=== PATIENT | female | born 1980 | race Caucasian/White ===

== ENCOUNTER → 2017-09-02 12:03 | Outpatient (CLI) | payer OTHER, SELFPAY ==
[2017-09-02 12:09] LABS: Mucous, Urine 0 SEEN /hpf (<or=2+)
[2017-09-02 14:02] LABS: Color, Urine Yellow (Yellow); Glucose, Dipstick Normal (Normal); Ketone-Dipstick Negative (Negative); Leukocyte Esterase-Dipstick 500 /ul (Negative); Nitrite-Dipstick Negative (Negative); Occult Blood-Urine 250 /ul (Negative); Protein-Dipstick Negative (Negative); Specific Gravity, Urine 1.005 (1.002-1.030); Urine Bilirubin Dipstick Negative (Negative); Urine Clarity Sl. Cloudy (Clear); Urine Urobilinogen Normal (Normal)
[2017-09-02 14:11] LABS: Bacteria 1+ /hpf (None Seen); Red Blood Cells-Urine 25-50 SEEN /hpf (0-5); Squamous Epithelial Cells - UA 0-5 SEEN /hpf (5-10); White Blood Cells 25-50 SEEN /hpf (0-5)
== END ==
LOC: MFPLAB 12:05 → LABSPEC 12:09
PROVIDERS: Family Provider Family Medicine; PCP Family Medicine; Visit Provider Family Medicine
DX: R30.0 Dysuria (principal)
CPT/HCPCS: 81001; 87077; 87086; 87088; 87186

== ENCOUNTER → 2017-10-06 16:11 | Outpatient (CLI) | payer OTHER, SELFPAY ==
[2017-10-06 18:31] LABS: Anion Gap 7 (5-15); BUN 10 mg/dL (7-18); BUN/Creat Ratio 10.8 RATIO (10-20); Calcium,Total 8.9 mg/dL (8.5-10.1); Chloride 109 mmol/L (98-107); Creatinine, Serum 0.93 mg/dL (0.55-1.02); EST Glomerular Filtration Rate 73 mL/min (>60); Est Glom Filt Rate - Afr Amer 88 mL/min (>60); Glucose 83 mg/dL (74-106); Potassium 3.8 mmol/L (3.5-5.1); Sodium Level 140 mmol/L (136-145)
== END ==
PROVIDERS: Family Provider Family Medicine; PCP Family Medicine; Visit Provider Psychiatry & Neurology Psychiatry
DX: Z51.81 Encounter for therapeutic drug level monitoring (principal); F31.9 Bipolar disorder, unspecified; Z79.899 Other long term (current) drug therapy
CPT/HCPCS: 36415; 80048; 80178; 84443

== ENCOUNTER → 2017-10-14 11:23 | Outpatient (CLI) | payer OTHER, SELFPAY | PROVIDERS: Family Provider Family Medicine; PCP Family Medicine; Visit Provider Family Medicine | DX: N30.00 Acute cystitis without hematuria (principal) | CPT/HCPCS: 87077; 87086; 87088; 87186 ==

== ENCOUNTER → 2018-01-11 10:22 | Outpatient (CLI) | payer OTHER, SELFPAY ==
--- NOTE | 2018-01-11 10:25 | RAD_ITS ---
STUDY: X-RAY CHEST REASON FOR EXAM: Female, 37 years old. Cough. Bronchitis. TECHNIQUE: Frontal and lateral views of the chest. COMPARISON: 09/16/2015. FINDINGS: The lungs are clear and expanded. There is no demonstrated pleural abnormality. Normal size heart. Normal mediastinum and irma. Normal visualized pulmonary arteries. Normal visualized aortic arch and descending thoracic aorta. Normal visualized thoracic spine. Normal visualized ribs, clavicles, and shoulders. There is no demonstrated abnormality of the visualized soft tissue structures of the upper abdomen. RAD/Chest PA and Lateral IMPRESSION: Normal x-ray examination of the chest. Electronically Signed: Maruy De La Fuente MD at 16:48 EDT , Service support ,
== END ==
PROVIDERS: Family Provider Family Medicine; PCP Family Medicine; Visit Provider Family Medicine
DX: J20.9 Acute bronchitis, unspecified (principal)
CPT/HCPCS: 71046

== ENCOUNTER → 2018-03-28 09:44 | Outpatient (CLI) | payer OTHER, SELFPAY ==
[2018-03-28 13:15] LABS: Microalbumin,Random Urine 24.8 mg/L (NO RANGE EST.); Microalbumin:Creatinine Ratio 72.3 mg/g CRE (<30 mg/g CRE)
[2018-03-28 13:22] LABS: ALB/GLOB Ratio 1.1 RATIO (0.9-2.4); AST(SGOT) 14 U/L (15-37); Alanine Aminotransfer ALT/SGPT 25 U/L (13-56); Albumin, Serum 3.8 g/dL (3.2-5.0); Alkaline Phosphatase 60 U/L (45-117); Anion Gap 9 (5-15); BUN 10 mg/dL (7-18); BUN/Creat Ratio 12.9 RATIO (10-20); Chloride 108 mmol/L (98-107); Creatinine, Serum 0.78 mg/dL (0.55-1.02); EST Glomerular Filtration Rate 89 mL/min (>60); Est Glom Filt Rate - Afr Amer 107 mL/min (>60); Globulin 3.4 g/dL (2.2-4.2); Glucose 90 mg/dL (74-106); Potassium 4.1 mmol/L (3.5-5.1); Protein, Total 7.2 g/dL (6.4-8.2); Sodium Level 140 mmol/L (136-145); Thyroid Stim Hormone (TSH) 1.84 uIU/mL (0.358-3.74)
== END ==
PROVIDERS: Family Provider Family Medicine; PCP Family Medicine; Visit Provider Family Medicine
DX: Z51.81 Encounter for therapeutic drug level monitoring (principal); F31.81 Bipolar II disorder; R03.0 Elevated blood-pressure reading, without diagnosis of hypertension
CPT/HCPCS: 36415; 80053; 80178; 82043; 82570; 84146; 84443

== ENCOUNTER → 2018-08-08 10:00 | Outpatient (CLI) | payer OTHER, SELFPAY ==
[2018-08-08 12:52] LABS: ALB/GLOB Ratio 1.2 RATIO (0.9-2.4); AST(SGOT) 17 U/L (15-37); Alanine Aminotransfer ALT/SGPT 35 U/L (13-56); Albumin, Serum 3.8 g/dL (3.2-5.0); Alkaline Phosphatase 57 U/L (45-117); Anion Gap 9 (5-15); BUN 14 mg/dL (7-18); BUN/Creat Ratio 15.6 RATIO (10-20); Chloride 105 mmol/L (98-107); EST Glomerular Filtration Rate 75 mL/min (>60); Est Glom Filt Rate - Afr Amer 90 mL/min (>60); Globulin 3.3 g/dL (2.2-4.2); Glucose 155 mg/dL (74-106); Potassium 3.5 mmol/L (3.5-5.1); Protein, Total 7.1 g/dL (6.4-8.2); Sodium Level 137 mmol/L (136-145); Triglycerides 303 mg/dL
== END ==
PROVIDERS: Family Provider Family Medicine; PCP Family Medicine; Referring Provider Family Medicine; Visit Provider Family Medicine
DX: I10 Essential (primary) hypertension (principal); F31.81 Bipolar II disorder
CPT/HCPCS: 36415; 80053; 80178; 84478

== ENCOUNTER → 2019-02-01 15:35 | Outpatient (CLI) | payer BC, SELFPAY ==
[2019-02-01 17:47] LABS: Anion Gap 9 (5-15); BUN 11 mg/dL (7-18); BUN/Creat Ratio 12.3 RATIO (10-20); Calcium,Total 9.4 mg/dL (8.5-10.1); Chloride 105 mmol/L (98-107); EST Glomerular Filtration Rate 75 mL/min (>60); Est Glom Filt Rate - Afr Amer 90 mL/min (>60); Glucose 91 mg/dL (74-106); Sodium Level 141 mmol/L (136-145)
== END ==
PROVIDERS: Family Provider Family Medicine; PCP Family Medicine; Referring Provider Family Medicine; Visit Provider Family Medicine
DX: I10 Essential (primary) hypertension (principal)
CPT/HCPCS: 36415; 80048

== ENCOUNTER → 2019-03-16 15:16 | Outpatient (CLI) | payer BC, SELFPAY ==
[2019-02-05 15:04] VITALS: BMI 29.5
[2019-03-16 17:57] LABS: Hematocrit 37.1 % (37-47); Hemoglobin 12.7 g/dL (12.0-15.0); Mean Corp Hgb Conc 34.2 g/dL (32-36); Mean Corpuscular Hgb 29.3 pg (27.0-32.0); Mean Corpuscular Volume 85.5 fL (81-99); Mean Platelet Vol. 9.2 fl (6.2-12.0); Platelet Count 285 K/mm3 (150-450); RBC Distribution Width CV 13.2 % (11.6-14.6); RBC Distribution Width SD 40.4 fl (35.1-43.9); Red Blood Count 4.34 M/mm3 (4.2-5.4); White Blood Count 8.7 K/mm3 (4.4-11.0)
[2019-03-16 18:04] LABS: AST(SGOT) 128 U/L (15-37); Alanine Aminotransfer ALT/SGPT 55 U/L (13-56); Albumin, Serum 3.9 g/dL (3.2-5.0); Alkaline Phosphatase 45 U/L (45-117); Anion Gap 7 (5-15); BUN 14 mg/dL (7-18); BUN/Creat Ratio 12.4 RATIO (10-20); Calcium,Total 9.7 mg/dL (8.5-10.1); Chloride 103 mmol/L (98-107); Creatinine, Serum 1.13 mg/dL (0.55-1.02); EST Glomerular Filtration Rate 57 mL/min (>60); Est Glom Filt Rate - Afr Amer 69 mL/min (>60); Globulin 3.8 g/dL (2.2-4.2); Glucose 118 mg/dL (74-106); Potassium 2.9 mmol/L (3.5-5.1); Protein, Total 7.7 g/dL (6.4-8.2); Sodium Level 135 mmol/L (136-145); Thyroid Stim Hormone (TSH) 2.37 uIU/mL (0.358-3.74)
== END ==
PROVIDERS: Family Provider Family Medicine; PCP Family Medicine; Referring Provider Psychiatry & Neurology Psychiatry; Visit Provider Psychiatry & Neurology Psychiatry
DX: Z79.899 Other long term (current) drug therapy (principal)
CPT/HCPCS: 36415; 80053; 80178; 84443; 85027

== ENCOUNTER → 2019-03-30 14:04 | Outpatient (CLI) | payer BC, SELFPAY ==
[2019-02-05 15:04] VITALS: BMI 29.5
[2019-03-30 16:35] LABS: ALB/GLOB Ratio 1.1 RATIO (0.9-2.4); AST(SGOT) 24 U/L (15-37); Alanine Aminotransfer ALT/SGPT 40 U/L (13-56); Albumin, Serum 3.8 g/dL (3.2-5.0); Alkaline Phosphatase 54 U/L (45-117); Anion Gap 10 (5-15); BUN 6 mg/dL (7-18); BUN/Creat Ratio 5.9 RATIO (10-20); Chloride 107 mmol/L (98-107); Creatinine, Serum 1.01 mg/dL (0.55-1.02); EST Glomerular Filtration Rate 65 mL/min (>60); Est Glom Filt Rate - Afr Amer 79 mL/min (>60); Globulin 3.5 g/dL (2.2-4.2); Glucose 102 mg/dL (74-106); Potassium 3.4 mmol/L (3.5-5.1); Protein, Total 7.3 g/dL (6.4-8.2); Sodium Level 140 mmol/L (136-145)
== END ==
PROVIDERS: Family Provider Family Medicine; PCP Family Medicine; Referring Provider Psychiatry & Neurology Psychiatry; Visit Provider Psychiatry & Neurology Psychiatry
DX: E87.6 Hypokalemia (principal); F31.81 Bipolar II disorder
CPT/HCPCS: 36415; 80053; 80178; 83735

== ENCOUNTER → 2019-08-21 10:31 | Outpatient (CLI) | payer BC, SELFPAY ==
[2019-02-05 15:04] VITALS: BMI 29.5
[2019-08-21 12:27] LABS: Hemoglobin 13.5 g/dL (12.0-15.0); Mean Corp Hgb Conc 33.8 g/dL (32-36); Mean Corpuscular Hgb 30.8 pg (27.0-32.0); Mean Corpuscular Volume 91.1 fL (81-99); Platelet Count 263 K/mm3 (150-450); RBC Distribution Width CV 12.3 % (11.6-14.6); RBC Distribution Width SD 40.8 fl (35.1-43.9); Red Blood Count 4.39 M/mm3 (4.2-5.4)
[2019-08-21 12:50] LABS: AST(SGOT) 28 U/L (15-37); Alanine Aminotransfer ALT/SGPT 69 U/L (13-56); Albumin, Serum 3.9 g/dL (3.2-5.0); Alkaline Phosphatase 64 U/L (45-117); Anion Gap 5 (5-15); BUN 15 mg/dL (7-18); BUN/Creat Ratio 17.4 RATIO (10-20); Calcium,Total 9.9 mg/dL (8.5-10.1); Chloride 109 mmol/L (98-107); Creatinine, Serum 0.86 mg/dL (0.55-1.02); EST Glomerular Filtration Rate 78 mL/min (>60); Est Glom Filt Rate - Afr Amer 95 mL/min (>60); Globulin 4.1 g/dL (2.2-4.2); Glucose 92 mg/dL (74-106); Potassium 4.2 mmol/L (3.5-5.1); Sodium Level 138 mmol/L (136-145)
== END ==
PROVIDERS: PCP Family Medicine; Referring Provider Psychiatry & Neurology Psychiatry; Visit Provider Psychiatry & Neurology Psychiatry
DX: F31.81 Bipolar II disorder (principal); F10.10 Alcohol abuse, uncomplicated
CPT/HCPCS: 36415; 80053; 80178; 84443; 85027

== ENCOUNTER → 2019-10-04 13:40 | Outpatient (CLI) | payer BC, SELFPAY ==
[2019-02-05 15:04] VITALS: BMI 29.5
[2019-10-04 15:55] LABS: AST(SGOT) 50 U/L (15-37); Alanine Aminotransfer ALT/SGPT 102 U/L (13-56); Alkaline Phosphatase 59 U/L (45-117); Anion Gap 11 (5-15); BUN 14 mg/dL (7-18); BUN/Creat Ratio 16.6 RATIO (10-20); Bilirubin, Direct 0.13 mg/dL (0.00-0.30); Calcium,Total 9.7 mg/dL (8.5-10.1); Chloride 103 mmol/L (98-107); Creatinine, Serum 0.84 mg/dL (0.55-1.02); EST Glomerular Filtration Rate 80 mL/min (>60); Est Glom Filt Rate - Afr Amer 97 mL/min (>60); GGTP 127 U/L (5-55); Globulin 3.6 g/dL (2.2-4.2); Glucose 150 mg/dL (74-106); Potassium 3.8 mmol/L (3.5-5.1); Protein, Total 7.6 g/dL (6.4-8.2); Sodium Level 136 mmol/L (136-145)
== END ==
PROVIDERS: PCP Family Medicine; Referring Provider Psychiatry & Neurology Psychiatry; Visit Provider Psychiatry & Neurology Psychiatry
DX: F31.81 Bipolar II disorder (principal)
CPT/HCPCS: 36415; 80048; 80076; 80178; 82977

== ENCOUNTER → 2019-10-26 12:16 | Outpatient (CLI) | payer BC, SELFPAY ==
[2019-02-05 15:04] VITALS: BMI 29.5
[2019-10-26 16:49] LABS: AST(SGOT) 51 U/L (15-37); Alanine Aminotransfer ALT/SGPT 129 U/L (13-56); Albumin, Serum 4.2 g/dL (3.2-5.0); Alkaline Phosphatase 65 U/L (45-117); Bilirubin, Direct 0.14 mg/dL (0.00-0.30); GGTP 116 U/L (5-55); Globulin 3.9 g/dL (2.2-4.2); Protein, Total 8.1 g/dL (6.4-8.2)
== END ==
PROVIDERS: PCP Family Medicine; Referring Provider Psychiatry & Neurology Psychiatry; Visit Provider Psychiatry & Neurology Psychiatry
DX: K72.90 Hepatic failure, unspecified without coma (principal)
CPT/HCPCS: 36415; 80076; 82977

== ENCOUNTER → 2020-02-26 12:17 | Outpatient (CLI) | payer BC, SELFPAY ==
[2019-02-05 15:04] VITALS: BMI 29.5
[2020-02-26 16:09] LABS: ALB/GLOB Ratio 1.1 RATIO (0.9-2.4); AST(SGOT) 57 U/L (15-37); Alanine Aminotransfer ALT/SGPT 102 U/L (13-56); Alkaline Phosphatase 63 U/L (45-117); Anion Gap 9 (5-15); BUN 15 mg/dL (7-18); Calcium,Total 9.7 mg/dL (8.5-10.1); Chloride 103 mmol/L (98-107); Creatinine, Serum 0.94 mg/dL (0.55-1.02); EST Glomerular Filtration Rate 71 mL/min (>60); Est Glom Filt Rate - Afr Amer 85 mL/min (>60); Globulin 3.7 g/dL (2.2-4.2); Glucose 109 mg/dL (74-106); Potassium 3.8 mmol/L (3.5-5.1); Protein, Total 7.7 g/dL (6.4-8.2); Sodium Level 137 mmol/L (136-145)
== END ==
LOC: LAB.FUTURE 12:20 → MTLAB 08-25 12:46
PROVIDERS: PCP Family Medicine; Referring Provider Psychiatry & Neurology Psychiatry; Visit Provider Psychiatry & Neurology Psychiatry
DX: K76.0 Fatty (change of) liver, not elsewhere classified (principal); Z79.899 Other long term (current) drug therapy
CPT/HCPCS: 36415; 80053; 80178; 84443

== ENCOUNTER → 2020-08-26 10:37 | Outpatient (CLI) | payer BC, SELFPAY ==
[2019-02-05 15:04] VITALS: BMI 29.5
--- NOTE | 2020-08-26 10:42 | RAD_ITS ---
STUDY: X-RAY CHEST REASON FOR EXAM: Female, 39 years old. CHEST PAIN TECHNIQUE: PA and lateral views of the chest. COMPARISON: 2017 FINDINGS: The lungs are clear and expanded. There is no demonstrated pleural abnormality. Normal size heart. Normal mediastinum and irma. Normal visualized pulmonary arteries. Normal visualized aortic arch and descending thoracic aorta. Normal visualized thoracic spine. Normal visualized ribs, clavicles, and shoulders. There is no demonstrated abnormality of the visualized soft tissue structures of the upper abdomen. RAD/Chest PA and Lateral IMPRESSION: Normal x-ray examination of the chest. Electronically Signed: Rashid Wheeler MD at 11:56 EDT , Service support ,
[2020-08-26 12:40] LABS: D-Dimer Quantitative (DVT/PE) 0.29 FEU/ug/m (0.27-0.49)
[2020-08-26 12:41] LABS: Absolute Lymphocyte Count 1.83 X10^3/uL (0.83-4.51); Absolute Neutrophil Count 3.8 X10^3/uL (2.0-7.7); Basophil# 0.04 X10^3/uL; Basophil% 0.6 % (0-1); Eosinophil# 0.28 X10^3/uL; Eosinophils% 4.2 % (0-5); Hematocrit 38.5 % (37-47); Hemoglobin 13.2 g/dL (12.0-15.0); Lymphocyte # 1.83 X10^3/ul (4.0); Lymphocyte % 27.7 % (19-41); Mean Corp Hgb Conc 34.3 g/dL (32-36); Mean Corpuscular Volume 96.3 fL (81-99); Mean Platelet Vol. 8.8 fl (6.2-12.0); Monocyte# 0.58 X10^3/uL; Monocyte% 8.8 % (0-10); NRBC Flagged by Analyzer 0 % (0-5); Neutrophil # 3.84 X10^3/uL (2.7-7.7); Neutrophil % 58.1 % (47-70); Platelet Count 187 K/mm3 (150-450); RBC Distribution Width CV 12.5 % (11.6-14.6); RBC Distribution Width SD 43.5 fl (35.1-43.9); White Blood Count 6.6 K/mm3 (4.4-11.0)
[2020-08-26 13:19] LABS: Hemoglobin A1c 5.9 % (3.8-5.6)
[2020-08-26 14:46] LABS: ALB/GLOB Ratio 1.1 RATIO (0.9-2.4); AST(SGOT) 70 U/L (15-37); Alanine Aminotransfer ALT/SGPT 126 U/L (13-56); Albumin, Serum 4.1 g/dL (3.2-5.0); Alkaline Phosphatase 63 U/L (45-117); Anion Gap 9 (5-15); BUN 9 mg/dL (7-18); BUN/Creat Ratio 9.8 RATIO (10-20); Calcium,Total 9.6 mg/dL (8.5-10.1); Chloride 102 mmol/L (98-107); Creatinine, Serum 0.91 mg/dL (0.55-1.02); EST Glomerular Filtration Rate 73 mL/min (>60); Est Glom Filt Rate - Afr Amer 88 mL/min (>60); GGTP 295 U/L (5-55); Globulin 3.7 g/dL (2.2-4.2); Glucose 147 mg/dL (74-106); Lipase 156 U/L (73-393); Potassium 3.5 mmol/L (3.5-5.1); Prolactin 31.9 ng/mL; Protein, Total 7.8 g/dL (6.4-8.2); Sodium Level 134 mmol/L (136-145); Thyroid Stim Hormone (TSH) 3.56 uIU/mL (0.358-3.74)
[2020-08-27 08:56] LABS: HCG BETA-SUBUNIT QUANT. < 1 mIU/mL (.)
== END ==
PROVIDERS: PCP Family Medicine; Referring Provider Psychiatry & Neurology Psychiatry; Visit Provider Psychiatry & Neurology Psychiatry
DX: R07.89 Other chest pain (principal); F31.81 Bipolar II disorder; E66.01 Morbid (severe) obesity due to excess calories; F10.10 Alcohol abuse, uncomplicated; Z68.41 Body mass index [BMI] 40.0-44.9, adult; N91.1 Secondary amenorrhea; Y90.9 Presence of alcohol in blood, level not specified
CPT/HCPCS: 36415; 71046; 80053; 80178; 82977; 83036; 83690; 84146; 84443; 84702; 85025; 85379

== ENCOUNTER 2020-09-08 01:29 | Observation (INO) | payer BC, SELFPAY ==
[2019-02-05 15:04] VITALS: BMI 29.5
[2020-09-08] VITALS (12 sets, daily range): BP systolic 115–148; BP diastolic 54–73; PULSE 69–85; RESP 16–22; TEMP 37.1–38.4; O2SAT 96–99; BMI 40.8; BMI 40.4
--- NOTE | 2020-09-08 | SPU_PTH ---
PATIENT: MARIIA DAVIDSON LOC: [facility] U#:[id number] AGE/SX: 39/F ROOM: [facility] RE09/08/[address]: Dr. Nedra Obrien MD : 1980 BED: 1 DIS: 09/09/2020 SPEC #: [id number] RECD: 09/09/20 10:00 STATUS: CASH REKia #: [id number] VICTORINA: 09/08/20 00:[address]: Nedra Obrien DEPT: CYTOLOGY RECD BY: Jet Navarro ENTERED: 09/09/20 10:39 SP TYPE: Sputum Cy OTHR DR: MD Dr. Hieu Arriola MD Tissues: Sputum Procedures: Pap Stain (control) Special Stain Group II Special Stain Group I AFB Stain (control) Cytospin Fluid HEADER OPERATION: Not noted PRE-OP DIAGNOSIS: N/V/D, dyspnea, cough TISSUE SUBMITTED: Sputum for cytology DIAGNOSIS CYTOLOGY Sputum for cytology (smears): Negative for malignant cells. Negative for fungal organisms. See comment. AM:key 09/09/2020 COMMENT GMS stain with matched control is negative for fungal organisms. CYTOLOGY STUDY Slides are reviewed. CYTOLOGY GROSS Received is 0.5 ml of light rolon mucoidy fluid labeled with the patient's name and and designated per the requisition as sputum. Submitted for cytology preparation. / key 09/09/2020 TC:5 CPT: 81164, 65668
--- NOTE | 2020-09-08 01:57 | ED.VIS.GEN ---
History of Present Illness Chief Complaint: Fever Onset: Days - 3 Context: Gradual Onset Timing: Intermittent Quality: 104 Current Severity: Mild Maximum Severity: Moderate Worsened by: unk Relieved by: tylenol Associated Symptoms: diarrhea, n/v Narrative: Patient presents to the ER because she felt a little short of breath while she was lying in bed tonight just prior to arrival. Her breathing is fine now. She has had no cough, congestion, sore throat, or other symptoms in the head or neck or chest. Fevers for 3 days, maximum 104, transiently responds to Tylenol. Diarrhea 10 times per day or more, loose watery, no blood or melena, occasional nausea and vomiting no abdominal pain. No trouble urinating. Denies having had Covid that she knows of, has not been vaccinated yet. No contact with anyone else with Covid that she knows of, nor with any other illness. - Past Medical History (1) Bipolar disorder Status: Chronic Past Medical History - Allergies and Home Meds Allergies/Adverse Reactions: Allergies No Known Allergies Allergy (Verified 09/08/20 01:32) Smoking Status: Never smoker - Family History Maternal Family History: Family History (Last Updated 02/05/19 @ 14:44 by Jaye Gaviria) Father Heart disease Mother Cancer Family History: Reports: Cancer Paternal Family History: Family History (Last Updated 02/05/19 @ 14:44 by Jaye Gaviria) Father Heart disease Mother Cancer Family History: Reports: High Cholesterol, Heart Disease, Hypertension Review of Systems General: Reports: Chills, Fever, Malaise. Denies: Sweats Eyes: Denies: Visual changes - bilaterally, Diplopia ENT: Denies: Rhinorrhea, Sore throat Cardiovascular: Denies: Chest pain, Palpitations Respiratory: Reports: Dyspnea - See HPI. Denies: Cough, Dyspnea on exertion Gastrointestinal: Reports: Nausea, Vomiting, Diarrhea. Denies: Abdominal pain, Melena, Hematochezia Genitourinary: Denies: Dysuria, Hematuria, Frequency Musculoskeletal: Denies: Back pain, Swelling, Extremity Pain Skin: Denies: Rash, Wounds Neurological: Denies: Headache, Weakness, Numbness Physical Exam Vital Signs/Narrative: Vital Signs Temp Pulse Resp BP Pulse Ox 09/08/20 01:33 120/55 L 09/08/20 01:30 99.4 F H 85 18 99 Inital Vital Signs reviewed: Yes General: Well nourished, Well developed, Obese, No Acute Distress Head: Normocephalic, Atraumatic Eyes: Perrl, EOMI ENT: Moist mucous membranes, No rhinorrhea, - - Posterior oropharynx clear. Negative for: Sinus tenderness Neck: Supple, Nontender, No lymphadenopathy Cardiovascular: Regular rate, Regular rhythm, No murmurs. Negative for: Tachycardia Respiratory: No distress, CTA bilaterally, Chest nontender Abdomen: Soft, Nontender, Nondistended, Normal bowel sounds Back: Nontender, Normal Inspection. Negative for: CVA tenderness Extremities: Nontender, No edema. Negative for: Calf Tenderness Skin: Normal color, No rash, No Trauma Neurological: Alert, Oriented x3, Cranial nerves II-XII grossly intact, Normal Strength, Normal Sensation, Normal Gait Psychological: Normal affect - Flat affect, Normal Mood Diagnostic/Tx/Re-eval Impressions Chest X-Ray 09/08/20 02:38 IMPRESSION: Normal x-ray examination of the chest. Electronically Signed: Rip Jackson MD at 4:25 EDT Tel , Service support , 09/08/20 02:38 Chest 1 View (Portable) [RAD] Stat 09/08/20 02:02 Mucosa - Nose SARS-CoV-2 Antigen (Rapid) - Final 09/08/20 02:02 Mucosa - Nasopharyngeal Influenza Types A,B Direct FA (RADHA) - Final Laboratory Results 09/08/20 03:23 Urine Color Yellow Urine Clarity Cloudy Urine pH 8.0 Ur Specific [place] 1.010 Urine Protein 30 H Urine Glucose (UA) Normal Urine Ketones Negative Urine Occult Blood 150 H Urine Nitrite Negative Urine Bilirubin Negative Urine Urobilinogen Normal Ur Leukocyte Esterase 500 H Urine RBC 10-25 SEEN Urine WBC 25-50 SEEN Ur Squamous Epith Cells 0-5 SEEN Urine Bacteria 0 SEEN Urine Mucus 0 SEEN - Medical Decision Making Clinically patient is well. Her potassium at 2.7 is concerning enough to admit her, since it will take repeated IV boluses in order to get her levels up especially if she continues to lose it through her GI tract, which is how I suspect her potassium is so low. Covid test rapid return negative, so I did send a PCR to confirm this given her fever of unknown etiology. Chest x-ray is normal 1 view on my interpretation. No sign of any infiltrates or pneumonia. She has no hypoxia, she is not currently dyspneic, her lungs are clear, and x-ray is normal. I do not think she needs to be tested for a PE at this time as that would be unlikely the reason for all of this including the fever, she is not an IV drug user. Influenza was obtained and is negative, urinalysis shows no sign of infection. Her bilirubin is abnormally elevated for her at 1.8 of undetermined significance. Her abdomen is very benign, she does not clinically appear to have cholangitis or cholecystitis. Plan is for admission for potassium replacement and further evaluation. Her urine shows pyuria and leukocyte esterase. She was given Rocephin and this was sent for a culture in addition to the blood cultures of her already sent. Unknown if this is the cause of all of this, as this should not necessarily be causing the vomiting and diarrhea, and she is not septic. ED Disposition - Plan for ED Patient: Disposition: Acute Care [facility] Diagnosis: Hypokalemia due to excessive gastrointestinal loss of potassium, Gastroenteritis, Intermittent fever, Urinary tract infection
[2020-09-08] MEDS: Ondansetron 4 MG/2 ML Vial IV (02:09)
[2020-09-08 02:32] LABS: Absolute Lymphocyte Count 0.67 X10^3/uL (0.83-4.51); Absolute Neutrophil Count 6.7 X10^3/uL (2.0-7.7); Basophil# 0.08 X10^3/uL; Basophil% 0.9 % (0-1); Eosinophil# 0.14 X10^3/uL; Eosinophils% 1.7 % (0-5); Hematocrit 36.1 % (37-47); Hemoglobin 12.7 g/dL (12.0-15.0); Lymphocyte # 0.67 X10^3/ul (4.0); Lymphocyte % 7.9 % (19-41); Mean Corp Hgb Conc 35.2 g/dL (32-36); Mean Corpuscular Hgb 33.1 pg (27.0-32.0); Monocyte# 0.79 X10^3/uL; Monocyte% 9.3 % (0-10); NRBC Flagged by Analyzer 0 % (0-5); Neutrophil # 6.72 X10^3/uL (2.7-7.7); Neutrophil % 79.5 % (47-70); Platelet Count 150 K/mm3 (150-450); RBC Distribution Width CV 12.4 % (11.6-14.6); RBC Distribution Width SD 42.7 fl (35.1-43.9); Red Blood Count 3.84 M/mm3 (4.2-5.4); White Blood Count 8.5 K/mm3 (4.4-11.0)
--- NOTE | 2020-09-08 02:38 | RAD_ITS ---
STUDY: X-RAY CHEST REASON FOR EXAM: Female, 39 years old. fever, sob TECHNIQUE: Single AP portable view of the chest. COMPARISON: None. FINDINGS: The lungs are clear and expanded. There is no demonstrated pleural abnormality. Normal size heart. Normal mediastinum and irma. Normal visualized pulmonary arteries. Normal visualized aortic arch and descending thoracic aorta. Normal visualized thoracic spine. Normal visualized ribs, clavicles, and shoulders. There is no demonstrated abnormality of the visualized soft tissue structures of the upper abdomen. RAD/Chest 1 View (Portable) IMPRESSION: Normal x-ray examination of the chest. Electronically Signed: Rip Jackson MD at 4:25 EDT Tel , Service support ,
[2020-09-08 02:58] LABS: ALB/GLOB Ratio 0.9 RATIO (0.9-2.4); AST(SGOT) 52 U/L (15-37); Alanine Aminotransfer ALT/SGPT 101 U/L (13-56); Albumin, Serum 3.7 g/dL (3.2-5.0); Alkaline Phosphatase 107 U/L (45-117); Anion Gap 7 (5-15); BUN 12 mg/dL (7-18); BUN/Creat Ratio 10.9 RATIO (10-20); Calcium,Total 9.7 mg/dL (8.5-10.1); Chloride 98 mmol/L (98-107); EST Glomerular Filtration Rate 59 mL/min (>60); Est Glom Filt Rate - Afr Amer 71 mL/min (>60); Estimated Creatinine Clearance 71.76 ml/min; Globulin 4.3 g/dL (2.2-4.2); Glucose 177 mg/dL (74-106); Potassium 2.7 mmol/L (3.5-5.1); Sodium Level 131 mmol/L (136-145)
--- NOTE | 2020-09-08 03:16 | HP.PCM_ITS ---
Problem List (1) COVID-19 Status: Suspected (2) Hypokalemia due to excessive gastrointestinal loss of potassium Status: Acute (3) Prediabetes Status: Chronic (4) Morbid obesity Status: Chronic (5) Elevated LFTs Status: Chronic (6) Bipolar disorder Status: Chronic Qualifiers: Active/Remission status: remission status unspecified Qualified Code(s): F31.9 - Bipolar disorder, unspecified (7) Hypertension Status: Chronic Qualifiers: Hypertension type: essential hypertension Qualified Code(s): I10 - Essential (primary) hypertension History of Present Illness Date of Admission: 09/08/20 Chief Complaint: Fever, Dyspnea, Nausea, Emesis, Diarrhea. The patient is a 39 y/o F w/ PMHx: HTN, Chronic LFT elevations, Bipolar disorder, Morbid obesity, Prediabetes mellitus type II who presents to the [facility] ED on 09/08/20 with history of 4 days of intermittent diarrhea noted to be loose and watery with occasional nausea and emesis with no associated abdominal pain, frontal throbbing headache, body aches as well as significant fevers with T-max up to 104 with some improvement with Tylenol and onset while in bed the evening prior to ED presentation specifically dyspnea prompting ED evaluation. Patient denies having had previous Covid and has not yet been vaccinated. She denies anyone else with symptoms. Work-up in the ED included T 99.4, heart rate 85, BP 120/55, respiratory rate 18, 99% on room air, CBC with WC 8.5, hemoglobin 12.7, platelet 150 with lymphopenia, CMP with sodium 131, potassium 2.7, BUN/creatinine 12/1.10, glucose 177, total bilirubin 1.80, AST/ALT 52/101, troponin less than 0.015, blood culture x2 pending per ED, rapid influenza and rapid Covid antigen negative, chest x-ray with no acute cardiopulmonary findings, Covid PCR pending upon evaluation, urinalysis pending upon evaluation. In the ED patient ministered normal saline, potassium supplementation oral and IV as well as Zofran 4 mg IV x1. She notes that her and three children have all been well. Past Medical History Past Medical History (Chronic Problems): Chronic Problems (Last Updated 02/05/19 @ 14:43 by Jaye Gaviria) Bipolar disorder (Chronic) Hypertension (Chronic) Prediabetes (Chronic) Morbid obesity (Chronic) Elevated LFTs (Chronic) Medical History: Medical History (Last Updated 02/05/19 @ 14:43 by Jaye Gaviria) Bipolar disorder F31.9 Hypertension I10 Allergies No Known Allergies Allergy (Verified 09/08/20 01:32) Home Medications: Ambulatory Orders Medication Instructions Recorded bisoprolol fumarate 10 mg tablet 10 mg PO DAILY 02/05/19 clonazepam 2 mg tablet 2 mg PO BID 02/05/19 lithium carbonate 600 mg capsule 900 mg PO DAILY 02/05/19 [place] Carbonate 1,500 mg PO QHS 09/08/20 Lurasidone HCl [Latuda] 120 mg PO DAILY 09/08/20 Sertraline HCl [Zoloft] 100 mg PO DAILY 09/08/20 Spironolactone 100 mg PO DAILY 09/08/20 Surgical History: Surgical History (Last Updated 02/05/19 @ 14:43 by Jaye Gaviria) delivery delivered O82 x3 Surgical History: - - x 3. 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 Smoking Status: Never smoker Tobacco Use: Non-smoker Alcohol: None Drugs: None - *Family History Maternal Family History: Family History (Last Updated 02/05/19 @ 14:44 by Jaye Gaviria) Father Heart disease Mother Cancer History Items: Cancer Paternal Family History: Family History (Last Updated 02/05/19 @ 14:44 by Jaye Gaviria) Father Heart disease Mother Cancer History Items: High Cholesterol, Heart Disease, Hypertension Review of Systems Constitutional: Reports: Chills, Fever, Malaise, Weakness, Fatigue. Denies: Anorexia, Weight Change HEENT: Reports: Head Aches. Denies: Sinus Congestion, Sinus Drainage Cardiovascular: Denies: Chest Pain, Chest Pressure, Chest Tightness, Light Headedness, Orthopnea, Palpitations, Syncope Respiratory: Reports: Cough, Shortness of Breath. Denies: Shortness of breath at rest, Shortness of breath upon exertion, Sputum production Gastrointestinal: Reports: Diarrhea, Nausea, Vomiting. Denies: Abdominal Pain Genitourinary: Denies: Dysuria Musculoskeletal: Reports: Joint Pain, Muscle pain. Denies: Joint Tenderness Skin: Denies: Rash, Wounds Neurological: Denies: Numbness, Tingling, Focal weakness Psychiatric: Reports: Anxiety, Depression. Denies: Homicidal Ideations, Suicidal Ideations Hematologic/ Lymphatic: Denies: Easy Bruising, Easy Bleeding VTE Information - Inpt Only VTE Present on Admission: No VTE Mechan Device Prophylaxis: SCD's VTE Pharm Prophylaxis ordered?: Yes Patient Problems: Active and Suspected Problems (Last Updated 02/05/19 @ 14:43 by Jaye Gaviria) Hypokalemia due to excessive gastrointestinal loss of potassium (Acute) Gastroenteritis (Acute) Intermittent fever (Acute) COVID-19 (Suspected) Subjective: Patient seated upright in the ED bed, fatigued, ill-appearing. Objective: Physical Examination: General: awake, alert, oriented x 3 and cooperative, seated upright in the ED bed, fatigued appearing, mildly unkempt. Skin: normal color, turgor, no icterus, cyanosis. HEENT: AT/NC, EOMI, PERRLA, dry MM, no carotid bruits or JVD noted; however, thickened neck makes examination difficult. Lungs: Diminished breath sounds, greater bases, moderate effort, no rales, ronchi or wheezing. Heart: Regular rate and rhythm; no gallop, rub audible. Abdomen: soft, morbidly obese, NTTP, ND, distant mildly hyperactive BS, no obvious HSM; however, habitus makes examination difficult. Extremities: no cyanosis, clubbing, or edema. Neurological: patient awake, alert, oriented as noted; cognitive function intact; pupils equally reactive to light and accomodation; cranial nerves II-XII grossly normal, moving all 4 extremities, no focal deficits, strength mildly global decrease secondary to acute presentation and complaints. Psychiatric: affect appears fatigued, flat, no acute evidence of depressive or anxiety feelings. - Physical Exam Vitals/I&O's: Vital Signs Temp Pulse Resp BP Pulse Ox 99.4 F H 85 18 120/55 L 99 09/08/20 01:30 09/08/20 01:30 09/08/20 01:30 09/08/20 01:33 09/08/20 01:30 Oxygen Delivery Method Room Air Weight: 276 lb 14.409 oz Body Mass Index (BMI) 40.8 Microbiology Past 72 Hours 09/08/20 02:02 Mucosa - Nose SARS-CoV-2 Antigen (Rapid) - Final 09/08/20 02:02 Mucosa - Nasopharyngeal Influenza Types A,B Direct FA (RADHA) - Final Laboratory Results 09/08/20 03:10: COVID-19 ([place]) Pending 09/08/20 : WBC 8.5, RBC 3.84 L, Hgb 12.7, Hct 36.1 L, MCV 94.0, MCH 33.1 H, MCHC 35.2, RDW Std Deviation 42.7, RDW Coeff of Chet 12.4, Plt Count 150, MPV 9.0, Immature Gran % (Auto) 0.700, Neut % (Auto) 79.5 H, Lymph % (Auto) 7.9 L, Parke % (Auto) 9.3, Eos % (Auto) 1.7, Baso % (Auto) 0.9, Absolute Neuts (auto) 6.7, Absolute Lymphs (auto) 0.67 L, Nucleated RBC % 0 09/08/20 : Sodium 131 L, Potassium 2.7 L*, Chloride 98, Carbon Dioxide 26.0, Anion Gap 7, BUN 12, Creatinine 1.10 H, Estim Creat Clear Calc 71.76, Est GFR (MDRD) Af Amer 71, Est GFR (MDRD) Non-Af 59 L, BUN/Creatinine Ratio 10.9, Glucose 177 H, Calcium 9.7, Total Bilirubin 1.80 H, AST 52 H, ALT 101 H, Alkaline Phosphatase 107, Troponin I < 0.015, Total Protein 8.0, Albumin 3.7, Globulin 4.3 H, Albumin/Globulin Ratio 0.9 Current Medications Potassium Chloride () 10 meq in 100 mls @ 100 mls/hr IV BOLUS X1 ONE Stop: 09/08/20 03:56 Assessment/Plan All Active Problems (Last Updated 02/05/19 @ 14:43 by Jaye Gaviria) Hypokalemia due to excessive gastrointestinal loss of potassium (Acute) Gastroenteritis (Acute) Intermittent fever (Acute) Infertility (Acute) The patient is a 39 y/o F w/ PMHx: HTN, Chronic LFT elevations, Bipolar disorder, Morbid obesity, Prediabetes mellitus type II who presents to the [facility] ED on 09/08/20 with history of 4 days of intermittent diarrhea noted to be loose and watery with occasional nausea and emesis with no associated abdominal pain, frontal throbbing headache, body aches as well as significant fevers with T-max up to 104 with some improvement with Tylenol and onset while in bed the evening prior to ED presentation specifically dyspnea prompting ED evaluation. 1. Acute Dyspnea, Cough, Fever, N/V/D, CASTRO, unclear etiology, Suspected Acute Viral Syndrome, COVID-19: Will admit to the COVID unit with pending COVID PCR with negative rapid, will maintain on oxygen with wean as tolerated to room air, PRN albuterol, HOB, IS parameters w/ pending sputum cultures, respiratory viral panel and urine antigens, will obtain D-dimer, procalcitonin, CRP, CPK, Ferritin, LDH, trop and BNP, enteric pathogens and c-diff assay, await UA, continue supportive care including q 2 hour turning including prone given no prone bed availability and judicious hydration, closely monitor for worsening status for ARDS and multiorgan failure. Given no hypoxia defer steroids. If negative COVID PCR, may consider transition to only MS status off precautions. 2. Hypokalemia: Admission K+ 2.7, oral and IV supplementation given in the ED, magnesium level requested, repeat level in AM. 3. Prediabetes mellitus type II: Admission glucose 177, no recent hemoglobin A1c 08/26/20 5.9%, ADA diet, maintain on insulin sliding scale with Accu-Cheks. 4. Chronic LFT elevations, elevated bilirubin: Admission AST/ALT 52/101, total bilirubin 1.80 which is up from previous noted to be normal prior usually 0.4 2.7 range, previously noted range 50-70 AST/10 2-1 29 ALT, similar to prior, will repeat CMP in AM. 5. Hypertension: Continue home regimen including bisoprolol , spironolactone with hold parameters as needed, PRN hydralazine. 6. Anxiety depression/bipolar disorder: We will continue patient home clonazepam, lithium, Latuda and sertraline regimen. 7. Morbid Obesity: Weight loss and lifestyle changes encouraged, nutrition consulted. 8. DVT prophylaxis: SCDs, Lovenox. OBSV E&M: 30524 Initial observation care L3
[2020-09-08] MEDS: Potassium Chloride 10mEq/100mL 10 MEQ/100 ML IV.SOLN. 100 MEQ IV BOLUS (03:21)
[2020-09-08] MEDS: Potassium Chloride Oral Tablet 20 MEQ 40 MEQ PO (03:22)
[2020-09-08 03:53] LABS: Bacteria 0 SEEN /hpf (None Seen); Mucous, Urine 0 SEEN /hpf (<or=2+)
[2020-09-08 04:04] LABS: Color, Urine Yellow (Yellow); Glucose, Dipstick Normal (Normal); Ketone-Dipstick Negative (Negative); Leukocyte Esterase-Dipstick 500 /ul (Negative); Nitrite-Dipstick Negative (Negative); Occult Blood-Urine 150 /ul (Negative); Protein-Dipstick 30 mg/dl (Negative); Urine Bilirubin Dipstick Negative (Negative); Urine Clarity Cloudy (Clear); Urine Urobilinogen Normal (Normal)
[2020-09-08 04:09] LABS: Red Blood Cells-Urine 10-25 SEEN /hpf (0-5); Squamous Epithelial Cells - UA 0-5 SEEN /hpf (5-10); White Blood Cells 25-50 SEEN /hpf (0-5)
[2020-09-08] MEDS: 0.9% Normal Saline 1,000 ML 125 ML IV ×3 (06:28→22:16)
[2020-09-08] MEDS: Ceftriaxone 1 GM/50 ML BAG IV (06:29)
[2020-09-08 06:31] LABS: Absolute Lymphocyte Count 0.62 X10^3/uL (0.83-4.51); Absolute Neutrophil Count 5.6 X10^3/uL (2.0-7.7); Basophil# 0.07 X10^3/uL; Basophil% 0.9 % (0-1); Eosinophil# 0.22 X10^3/uL; Hemoglobin 11.7 g/dL (12.0-15.0); Lymphocyte # 0.62 X10^3/ul (4.0); Lymphocyte % 8.4 % (19-41); Mean Corp Hgb Conc 34.4 g/dL (32-36); Mean Corpuscular Hgb 32.5 pg (27.0-32.0); Mean Corpuscular Volume 94.4 fL (81-99); Monocyte# 0.83 X10^3/uL; Monocyte% 11.2 % (0-10); NRBC Flagged by Analyzer 0 % (0-5); Neutrophil % 75.7 % (47-70); Platelet Count 138 K/mm3 (150-450); RBC Distribution Width CV 12.5 % (11.6-14.6); RBC Distribution Width SD 43.3 fl (35.1-43.9); White Blood Count 7.4 K/mm3 (4.4-11.0)
[2020-09-08] MEDS: Pantoprazole Sodium 20 MG Tablet PO ×2 (06:36→20:25)
[2020-09-08] MEDS: Insulin Lispro 100 UNIT/ML INSULN.PEN SC ×4 (06:36→20:39)
[2020-09-08 06:41] LABS: D-Dimer Quantitative (DVT/PE) 0.38 FEU/ug/m (0.27-0.49)
[2020-09-08 07:12] LABS: ALB/GLOB Ratio 0.9 RATIO (0.9-2.4); AST(SGOT) 47 U/L (15-37); Alanine Aminotransfer ALT/SGPT 93 U/L (13-56); Albumin, Serum 3.5 g/dL (3.2-5.0); Alkaline Phosphatase 103 U/L (45-117); Anion Gap 7 (5-15); BUN 10 mg/dL (7-18); BUN/Creat Ratio 10.5 RATIO (10-20); Calcium,Total 9.5 mg/dL (8.5-10.1); Chloride 101 mmol/L (98-107); Creatinine, Serum 0.96 mg/dL (0.55-1.02); EST Glomerular Filtration Rate 69 mL/min (>60); Est Glom Filt Rate - Afr Amer 83 mL/min (>60); Estimated Creatinine Clearance 82.22 ml/min; Ferritin 356 ng/mL (8-252); Glucose 162 mg/dL (74-106); LDH 144 U/L (84-246); Magnesium 2.2 mg/dL (1.6-2.6); Potassium 3.4 mmol/L (3.5-5.1); Protein, Total 7.5 g/dL (6.4-8.2); Sodium Level 132 mmol/L (136-145)
[2020-09-08 07:20] LABS: Bedside Glucose 162 mg/dL (70-110)
[2020-09-08 07:56] LABS: Procalcitonin 0.54 ng/mL (0.00-0.09)
[2020-09-08 08:01] LABS: BNP,B-Type NATRIURETIC PEPTIDE 20.9 pg/mL (0-100)
[2020-09-08] MEDS: Spironolactone 50 MG Tablet 100 MG PO (10:53)
[2020-09-08] MEDS: Enoxaparin 40 MG/0.4 ML Syringe SC ×2 (10:53→20:24)
[2020-09-08] MEDS: Bisoprolol Fumarate 5 MG Tablet 10 MG PO (10:53)
[2020-09-08] MEDS: clonazePAM 1 MG Tablet 2 MG PO ×2 (10:53→20:29)
[2020-09-08] MEDS: Folic Acid 1 MG Tablet 2 MG PO (11:28)
[2020-09-08] MEDS: Acetaminophen 325 MG Tablet 650 MG PO (11:28)
[2020-09-08] MEDS: LITHIUM CARBONATE 300 MG TABLET.ER 900 MG PO (11:29)
[2020-09-08 12:01] LABS: Bedside Glucose 181 mg/dL (70-110)
[2020-09-08] MEDS: Thiamine Hydrochloride 100 MG Tablet PO (14:30)
[2020-09-08] MEDS: Ibuprofen 400 MG Tablet PO (16:43)
[2020-09-08 18:31] LABS: Bedside Glucose 151 mg/dL (70-110)
[2020-09-08] MEDS: Sertraline 100 MG Tablet PO (20:25)
[2020-09-08] MEDS: LITHIUM CARBONATE 300 MG TABLET.ER 1500 MG PO (20:44)
[2020-09-08 20:46] LABS: Bedside Glucose 166 mg/dL (70-110)
[2020-09-09 02:08] VITALS: BP 120/68; PULSE 71; RESP 15; TEMP 37.2; O2SAT 99
[2020-09-09] MEDS: Acetaminophen 325 MG Tablet 650 MG PO (02:16)
[2020-09-09] MEDS: 0.9% Normal Saline 1,000 ML 125 ML IV (06:48)
[2020-09-09 07:00] LABS: Bedside Glucose 142 mg/dL (70-110)
[2020-09-09 07:27] VITALS: O2SAT 98
[2020-09-09 07:27] LABS: Absolute Lymphocyte Count 0.84 X10^3/uL (0.83-4.51); Absolute Neutrophil Count 3.8 X10^3/uL (2.0-7.7); Basophil# 0.07 X10^3/uL; Basophil% 1.2 % (0-1); Eosinophils% 5.1 % (0-5); Hematocrit 32.2 % (37-47); Hemoglobin 10.8 g/dL (12.0-15.0); Lymphocyte # 0.84 X10^3/ul (4.0); Lymphocyte % 14.4 % (19-41); Mean Corp Hgb Conc 33.5 g/dL (32-36); Mean Corpuscular Volume 98.5 fL (81-99); Mean Platelet Vol. 8.9 fl (6.2-12.0); Monocyte# 0.73 X10^3/uL; Monocyte% 12.5 % (0-10); NRBC Flagged by Analyzer 0 % (0-5); Neutrophil # 3.84 X10^3/uL (2.7-7.7); Neutrophil % 65.9 % (47-70); Platelet Count 135 K/mm3 (150-450); RBC Distribution Width CV 12.7 % (11.6-14.6); Red Blood Count 3.27 M/mm3 (4.2-5.4); White Blood Count 5.8 K/mm3 (4.4-11.0)
[2020-09-09 07:44] LABS: ALB/GLOB Ratio 0.7 RATIO (0.9-2.4); AST(SGOT) 33 U/L (15-37); Alanine Aminotransfer ALT/SGPT 69 U/L (13-56); Albumin, Serum 2.9 g/dL (3.2-5.0); Alkaline Phosphatase 92 U/L (45-117); Anion Gap 4 (5-15); BUN 9 mg/dL (7-18); BUN/Creat Ratio 10.5 RATIO (10-20); Calcium,Total 9.1 mg/dL (8.5-10.1); Chloride 108 mmol/L (98-107); Creatinine, Serum 0.86 mg/dL (0.55-1.02); EST Glomerular Filtration Rate 78 mL/min (>60); Est Glom Filt Rate - Afr Amer 94 mL/min (>60); Estimated Creatinine Clearance 91.78 ml/min; Globulin 3.9 g/dL (2.2-4.2); Glucose 138 mg/dL (74-106); Magnesium 2.6 mg/dL (1.6-2.6); Potassium 3.5 mmol/L (3.5-5.1); Protein, Total 6.8 g/dL (6.4-8.2); Sodium Level 135 mmol/L (136-145)
--- NOTE | 2020-09-09 09:16 | DCINST_ITS ---
- Discharge Diagnoses Current Active Problems: Current Active and Chronic Problems (Last Updated 02/05/19 @ 14:43 by Jaye Gaviria) Bipolar disorder (Chronic) Hypokalemia due to excessive gastrointestinal loss of potassium (Acute) Gastroenteritis (Acute) Intermittent fever (Acute) Hypertension (Chronic) Prediabetes (Chronic) Morbid obesity (Chronic) Elevated LFTs (Chronic) Urinary tract infection (Acute) Reason(s) for Visit for Discharge Instructions: Generalised weakness, gastroenteritis You will use the following diet at home:: Cardiac Your food should be the consistency of: Regular Your liquids should be the consistency of: Regular/Thin Discharge Activity: Return to Normal Activity Additional Instructions: Continue to keep yourself hydrated. Continue to abstain from alcohol. Follow-up with your psychiatrist and primary care doctor as scheduled. Allergies/Adverse Reactions: Allergies No Known Allergies Allergy (Verified 09/08/20 01:32) Medications to take at Discharge bisoprolol fumarate 10 mg tablet 10 mg PO DAILY 02/05/19 clonazepam 2 mg tablet 2 mg PO BID 02/05/19 lithium carbonate 600 mg capsule 900 mg PO DAILY 02/05/19 [place] Carbonate 1,500 mg PO QHS 09/08/20 Lurasidone HCl [Latuda] 120 mg PO DAILY 09/08/20 Sertraline HCl [Zoloft] 100 mg PO DAILY 09/08/20 Spironolactone 100 mg PO DAILY 09/08/20 Folic Acid 2 mg PO DAILY@0800 30 Days #30 tablet 09/09/20 Pantoprazole Sodium [Protonix] 20 mg PO BID 30 Days #60 tablet 09/09/20 Thiamine Hydrochloride [Vitamin B1] 100 mg PO DAILYCM 30 Days #30 tablet 09/09/20 The following prescriptions were given: Folic Acid 2 mg PO DAILY@0800 30 Days #30 tablet Transmission Status: Pending to [facility] Pantoprazole Sodium [Protonix] 20 mg PO BID 30 Days #60 tablet Transmission Status: Pending to [facility] Thiamine Hydrochloride [Vitamin B1] 100 mg PO DAILYCM 30 Days #30 tablet Transmission Status: Pending to [facility] Primary Care Physician: Hieu Gonzalez MD [Primary Care Provider] - Please follow up with your Primary Care Physician in: within 1-2 weeks Test Results: Test results from this visit will be discussed in further detail at your follow- up appointment, if applicable. Proposed Discharge Date: 09/09/20
--- NOTE | 2020-09-09 09:19 | DS.PCM_ITS ---
Discharge Date and Diagnosis - Problem List Patient Problems: Active and Suspected Problems (Last Updated 02/05/19 @ 14:43 by Jaye Gaviria) Hypokalemia due to excessive gastrointestinal loss of potassium (Acute) Gastroenteritis (Acute) COVID-19 (Suspected) Date of Admission: 09/08/20 Date of Discharge: 09/09/20 - Primary Discharge Diagnosis Acute Problems: Active Problems (Last Updated 02/05/19 @ 14:43 by Jaye Gaviria) Hypokalemia due to excessive gastrointestinal loss of potassium (Acute) Gastroenteritis (Acute) Suspected Problems: Suspected Problems (Last Updated 02/05/19 @ 14:43 by Jaye Gaviria) COVID-19 (Suspected) - Secondary Discharge Diagnosis Chronic Problems: Chronic Problems (Last Updated 02/05/19 @ 14:43 by Jaye Gaviria) Bipolar disorder (Chronic) Hypertension (Chronic) Prediabetes (Chronic) Morbid obesity (Chronic) Elevated LFTs (Chronic) Hospital Course and Treatment Imaging Results: Clinical Impression(s) from Imaging Studies Chest X-Ray 09/08/20 02:38 IMPRESSION: Normal x-ray examination of the chest. Electronically Signed: Rip Jackson MD at 4:25 EDT Tel , Service support , Operations: None Procedures: None Summary of Care Provided: The patient is a 39 year old F with past medical history of bipolar disorder, morbid obesity, prediabetes who presented with a 4-day history of diarrhea, w hich was intermittent, associated with nausea and emesis without abdominal pain. He also had fever with a maximum of 104F. Patient denied any contact with persons with COVID-19. Her kids have been unwell with upper respiratory infections days prior to admission. Initial influenza screen was negative. COVID-19 rapid antigen was negative. Respiratory panel was negative. Urine streptococcal antigens were also negative. Patient's C. difficile and enteric panel was negative. B19 PCR was negative. She had low-grade fevers in the hospital. She had normal white cell count. Her potassium was 3.4, repeat potassium was 2.7. Patient had evidence of dehydration with elevation in her creatinine. Her potassium was supplemented, and she was maintained on IV fluids. Her creatinine improved back to her baseline. Blood cultures were pending at time of discharge. Patient was seen the next day and appears improved.. She denied any acute complaints. Patient Problems: Active and Suspected Problems (Last Updated 02/05/19 @ 14:43 by Jaye Gaviria) Hypokalemia due to excessive gastrointestinal loss of potassium (Acute) Gastroenteritis (Acute) COVID-19 (Suspected) Subjective: On the day of discharge, patient was seen and examined. She feels improved. No more diarrhea or nausea or vomiting. - Physical Exam Vitals/I&O's: Vital Signs Temp Pulse Resp BP Pulse Ox 99.0 F 71 15 120/68 98 09/09/20 02:08 09/09/20 02:08 09/09/20 02:08 09/09/20 02:08 09/09/20 07:27 Oxygen Delivery Method Room Air Weight: 122.6 kg Body Mass Index (BMI) 40.4 Intake and Output for Last 24 Hours 09/07/20 09/08/20 09/09/20 23:59 23:59 23:59 Intake Total 4140 / 4140 1120 / 1120 Balance 4140 / 4140 1120 / 1120 General: Alert, Oriented x3, Cooperative, No apparent distress, - - morbidly obese HEENT: Atraumatic, PERRLA, EOMI, Normocephalic Oral: Moist Mucosa Neck: Supple Lungs: Clear to auscultation, Normal air movement Cardiovascular: Regular rate, Regular Rhythm, Normal S1, Normal S2 Abdomen: Bowel Sounds Present, Soft, Non Tender, Non-Distended Extremities: No edema Skin: No rashes Musculoskeletal: No Tenderness to Palpation of Joints or Extremities Lymphatic: No Cervical, Supraclavicular, or Inguinal Adenopathy Neurological: Cranial nerves II-XII grossly intact, Neuro grossly intact Psych/Mental Status: Normal Affect, Appropriate Microbiology Past 72 Hours 09/08/20 10:11 Stool Enteric Bacteriology - Final 09/08/20 10:13 Stool C. difficile DNA Amplification - Final 09/08/20 03:23 Mucosa - Nasopharyngeal Respiratory Panel (PCR) - Final 09/08/20 03:23 Urine, Clean Catch Legionella Antigen - Final 09/08/20 03:23 Urine, Clean Catch Streptococcus pneumoniae Antigen (M - Final 09/08/20 02:02 Mucosa - Nose SARS-CoV-2 Antigen (Rapid) - Final 09/08/20 02:02 Mucosa - Nasopharyngeal Influenza Types A,B Direct FA (RADHA) - Final Laboratory Results 09/08/20 11:30: POC Glucose 181 H 09/08/20 16:33: POC Glucose 151 H 09/08/20 20:38: POC Glucose 166 H 09/09/20 06:50: POC Glucose 142 H 09/09/20 07:20: WBC 5.8, RBC 3.27 L, Hgb 10.8 L, Hct 32.2 L, MCV 98.5, MCH 33.0 H, MCHC 33.5, RDW Std Deviation 46.0 H, RDW Coeff of Chet 12.7, Plt Count 135 L, MPV 8.9, Immature Gran % (Auto) 0.900, Neut % (Auto) 65.9, Lymph % (Auto) 14.4 L , [place] % (Auto) 12.5 H, Eos % (Auto) 5.1 H, Baso % (Auto) 1.2 H, Absolute Neuts (auto) 3.8, Absolute Lymphs (auto) 0.84, Nucleated RBC % 0 09/09/20 07:20: Sodium 135 L, Potassium 3.5, Chloride 108 H, Carbon Dioxide 23.0, Anion Gap 4 L, BUN 9, Creatinine 0.86, Estim Creat Clear Calc 91.78, Est GFR (MDRD) Af Amer 94, Est GFR (MDRD) Non-Af 78, BUN/Creatinine Ratio 10.5, Glucose 138 H, Calcium 9.1, Magnesium 2.6, Total Bilirubin 1.20 H, AST 33, ALT 69 H, Alkaline Phosphatase 92, Total Protein 6.8, Albumin 2.9 L, Globulin 3.9, Albumin/Globulin Ratio 0.7 L Current Medications Acetaminophen (Acetaminophen 325 Mg Tablet) 650 mg PO Q6H PRN PRN PRN Reason: Pain Score 1-10/Temp > 100.7 F Last Admin: 09/09/20 02:16 Dose: 650 mg Documented by: Al Hydroxide/Mg Hydroxide (Mag Hydrox/Al Hydrox/Simeth 30 Ml Udc) 30 ml PO Q6H PRN PRN PRN Reason: Gastric Burning Albuterol Sulfate (Albuterol Sulfate 8 Gm Inhaler (60 Puffs)) 4 - 8 puff INHALATION Q4H PRN PRN PRN Reason: Dyspnea, wheezing Bisoprolol Fumarate (Bisoprolol Fumarate 5 Mg Tablet) 10 mg PO DAILY [facility] Last Admin: 09/08/20 10:53 Dose: 10 mg Documented by: Clonazepam (Clonazepam 1 Mg Tablet) 2 mg PO BID [facility] Last Admin: 09/08/20 20:29 Dose: 2 mg Documented by: Enoxaparin Sodium (Enoxaparin 40 Mg/0.4 Ml Syringe) 40 mg SC BID [facility] Last Admin: 09/08/20 20:24 Dose: 40 mg Documented by: Folic Acid (Folic Acid 1 Mg Tablet) 2 mg PO DAILY@0800 [facility] Last Admin: 09/08/20 11:28 Dose: 2 mg Documented by: Guaifenesin (Guaifenesin 10 Ml Udc (200mg/10ml)) 20 ml PO Q4H PRN PRN PRN Reason: COUGH Hydralazine HCl (Hydralazine 20 Mg/Ml Vial) 10 mg IV Q4H PRN PRN PRN Reason: SBP > 160 Sodium Chloride () 1,000 mls @ 125 mls/hr IV .Q8H [facility] Last Admin: 09/09/20 06:48 Dose: 125 mls/hr Documented by: Ibuprofen (Ibuprofen 400 Mg Tablet) 400 mg PO Q4H PRN PRN PRN Reason: Pain Score 1-10/Temp > 100.7 F Last Admin: 09/08/20 16:43 Dose: 400 mg Documented by: Insulin Human Lispro (Insulin Lispro 100 Unit/Ml Insuln.Pen) 0 unit SC [facility]; Protocol Last Admin: 09/09/20 06:50 Dose: Not Given Documented by: [place] Carbonate ([place] Carbonate 300 Mg Tablet.Er) 1,500 mg PO QHS [facility] Last Admin: 09/08/20 20:44 Dose: 1,500 mg Documented by: [place] Carbonate ([place] Carbonate 300 Mg Tablet.Er) 900 mg PO DAILYCM [facility] Last Admin: 09/08/20 11:29 Dose: 900 mg Documented by: Loperamide HCl (Loperamide 2 Mg Capsule) 2 mg PO Q2H PRN PRN PRN Reason: Diarrhea Magnesium Hydroxide (Magnesium Hydroxide 30 Ml Udc) 30 ml PO DAILY PRN PRN PRN Reason: Constipation Ondansetron HCl (Ondansetron 4 Mg/2 Ml Vial) 4 mg IV Q8H PRN PRN PRN Reason: NAUSEA/VOMITING Pantoprazole Sodium (Pantoprazole Sodium 20 Mg Tablet) 20 mg PO BID [facility] Last Admin: 09/08/20 20:25 Dose: 20 mg Documented by: Prochlorperazine Edisylate (Prochlorperazine 10 Mg/2 Ml Vial) 5 mg IV Q4H PRN PRN PRN Reason: Breakthrough nausea/vomiting Psyllium Hydrophilic Mucilloid (Psyllium 1 Packet) 1 packet PO DAILY PRN PRN PRN Reason: Constipation Senna/Docusate Sodium (Senna/Docusate Sodium 1 Tablet) 2 tablet PO BID PRN PRN PRN Reason: Constipation Sertraline HCl (Sertraline 100 Mg Tablet) 100 mg PO QHS [facility] Last Admin: 09/08/20 20:25 Dose: 100 mg Documented by: Sodium Chloride (0.9% Saline Lock 10 Ml Syringe) 10 - 40 ml IV UD PRN PRN Reason: SALINE FLUSH [facility] ([facility] Mg Tablet) [facility] Last Admin: 09/08/20 10:53 Dose: 100 mg Documented by: Temazepam (Temazepam 15 Mg Capsule) 15 mg PO QHS PRN PRN PRN Reason: INSOMNIA Thiamine HCl (Thiamine Hydrochloride 100 Mg Tablet) [facility] Last Admin: 09/08/20 14:30 Dose: 100 mg Documented by: Throat Lozenges (Benzocaine/Menthol 1 Lozenge) 1 lozenge MUCOUS MEM Q2H PRN PRN PRN Reason: SORE THROAT Discharge Diet: Low fat/ Low Cholesterol, 2000 mg Sodium Diet, Carb Control Diet Discharge Activity: Return to Normal Activity Home Medications: Medications to take at Discharge bisoprolol fumarate 10 mg tablet 10 mg PO DAILY 02/05/19 clonazepam 2 mg tablet 2 mg PO BID 02/05/19 lithium carbonate 600 mg capsule 900 mg PO DAILY 02/05/19 [place] Carbonate 1,500 mg PO QHS 09/08/20 Lurasidone HCl [Latuda] 120 mg PO DAILY 09/08/20 Sertraline HCl [Zoloft] 100 mg PO DAILY 09/08/20 Spironolactone 100 mg PO DAILY 03/29/21 Folic Acid 2 mg PO DAILY@0800 30 Days #30 tablet 09/09/20 Pantoprazole Sodium [Protonix] 20 mg PO BID 30 Days #60 tablet 09/09/20 Thiamine Hydrochloride [Vitamin B1] 100 mg PO DAILYCM 30 Days #30 tablet 09/09/20 Following Prescriptions Were Given to Patient: Folic Acid 2 mg PO DAILY@0800 30 Days #30 tablet Transmission Status: Received by JOSE CARMEN RD Pantoprazole Sodium [Protonix] 20 mg PO BID 30 Days #60 tablet Transmission Status: Received by JOSE CARMEN RD Thiamine Hydrochloride [Vitamin B1] 100 mg PO DAILYCM 30 Days #30 tablet Transmission Status: Received by JOSE CARMEN RD Primary Care Physician: Hieu Gonzalez MD [Primary Care Provider] - Please follow up with your Primary Care Physician in: within 1-2 weeks Disposition: Home Minutes spent on discharge:: 35 Patient Condition:: Stable Medical Necessity - Tobacco Use Smoking Status: Never smoker Tobacco Use: Non-smoker Meaningful Use Info Meaningful Use Diagnoses (Choose all that apply): None applicable OBSV E&M: 53100 Observation care discharge
[2020-09-09 10:03] VITALS: BP 126/65; PULSE 75; RESP 16; TEMP 37.2; O2SAT 95
[2020-09-09] MEDS: LITHIUM CARBONATE 300 MG TABLET.ER 900 MG PO (10:12)
[2020-09-09] MEDS: clonazePAM 1 MG Tablet 2 MG PO (10:21)
[2020-09-11 11:07] LABS: Acid Fast Stain SEE PATHOLOGY REPORT; Cytology, Body Fluid / CSF SEE PATHOLOGY REPORT
== END 2020-09-09 09:11 | disposition home or self-care (01) ==
LOC: ED 03:34 → PCU 04:02
PROVIDERS: Admitting Provider Family Medicine; Emergency Provider Emergency Medicine; PCP Family Medicine; Visit Provider Internal Medicine
DX: K52.9 Noninfective gastroenteritis and colitis, unspecified (principal); E87.6 Hypokalemia; N39.0 Urinary tract infection, site not specified; R73.03 Prediabetes; E66.01 Morbid (severe) obesity due to excess calories; R79.89 Other specified abnormal findings of blood chemistry; F31.81 Bipolar II disorder; I10 Essential (primary) hypertension; Z79.899 Other long term (current) drug therapy; Z68.41 Body mass index [BMI] 40.0-44.9, adult; R06.02 Shortness of breath; R05 Cough; F41.9 Anxiety disorder, unspecified
CPT/HCPCS: 36415; 71045; 80053; 81001; 82728; 82962; 83615; 83735; 83880; 84145; 84484; 85025; 85379; 86140; 87040; 87070; 87077; 87086; 87088; 87186; 87205; 87426; 87449; 87493; 87506; 87633; 87635; 87804; 88108; 88312; 88313; 96361; 96365; 96367; 96372; 96375; 99218; 99251; 99284; J7030; J7040; J7050; A4216; G0378; G0463; J2405; U0002

== ENCOUNTER → 2020-09-11 09:25 | Outpatient (CLI) | payer BC, SELFPAY ==
[2020-09-08 05:53] VITALS: BMI 40.4
[2020-09-11 10:30] LABS: Absolute Lymphocyte Count 1.32 X10^3/uL (0.83-4.51); Absolute Neutrophil Count 4.2 X10^3/uL (2.0-7.7); Basophil# 0.08 X10^3/uL; Basophil% 1.1 % (0-1); Eosinophil# 0.53 X10^3/uL; Eosinophils% 7.5 % (0-5); Erythrocyte Sedimentation Rate 62 mm/hr (0-30); Hematocrit 39.6 % (37-47); Hemoglobin 13.2 g/dL (12.0-15.0); Lymphocyte # 1.32 X10^3/ul (4.0); Lymphocyte % 18.6 % (19-41); Mean Corp Hgb Conc 33.3 g/dL (32-36); Mean Corpuscular Hgb 31.8 pg (27.0-32.0); Mean Corpuscular Volume 95.4 fL (81-99); Mean Platelet Vol. 9.9 fl (6.2-12.0); Monocyte# 0.88 X10^3/uL; Monocyte% 12.4 % (0-10); NRBC Flagged by Analyzer 0 % (0-5); Neutrophil # 4.22 X10^3/uL (2.7-7.7); Neutrophil % 59.6 % (47-70); Platelet Count 232 K/mm3 (150-450); RBC Distribution Width CV 12.5 % (11.6-14.6); RBC Distribution Width SD 43.4 fl (35.1-43.9); Red Blood Count 4.15 M/mm3 (4.2-5.4); White Blood Count 7.1 K/mm3 (4.4-11.0)
[2020-09-11 10:56] LABS: ALB/GLOB Ratio 0.8 RATIO (0.9-2.4); AST(SGOT) 49 U/L (15-37); Alanine Aminotransfer ALT/SGPT 85 U/L (13-56); Albumin, Serum 3.8 g/dL (3.2-5.0); Alkaline Phosphatase 146 U/L (45-117); Anion Gap 7 (5-15); BUN 16 mg/dL (7-18); BUN/Creat Ratio 15.2 RATIO (10-20); Calcium,Total 10.9 mg/dL (8.5-10.1); Chloride 102 mmol/L (98-107); Creatinine, Serum 1.05 mg/dL (0.55-1.02); EST Glomerular Filtration Rate 62 mL/min (>60); Est Glom Filt Rate - Afr Amer 75 mL/min (>60); Glucose 137 mg/dL (74-106); Lipase 286 U/L (73-393); Magnesium 2.6 mg/dL (1.6-2.6); Potassium 3.5 mmol/L (3.5-5.1); Protein, Total 8.8 g/dL (6.4-8.2); Sodium Level 133 mmol/L (136-145)
[2020-09-12 20:08] LABS: Endomysial Antibody IgA Negative (Negative)
[2020-09-12 20:30] LABS: Immunoglobulin A 124 mg/dL (87-352); t-Transglutaminase IgA <2 U/mL (0-3)
== END ==
PROVIDERS: PCP Family Medicine; Referring Provider Family Medicine; Visit Provider Family Medicine
DX: R19.7 Diarrhea, unspecified (principal)
CPT/HCPCS: 36415; 80053; 82784; 83516; 83690; 83735; 85025; 85652; 86140; 86255

== ENCOUNTER → 2020-09-12 10:45 | Outpatient (CLI) | payer BC, SELFPAY ==
[2020-09-08 05:53] VITALS: BMI 40.4
== END ==
PROVIDERS: PCP Family Medicine; Referring Provider Family Medicine; Visit Provider Family Medicine
DX: R19.7 Diarrhea, unspecified (principal)

== ENCOUNTER → 2020-09-17 10:29 | Outpatient (CLI) | payer BC, SELFPAY ==
[2020-09-08 05:53] VITALS: BMI 40.4
[2020-09-17 12:29] LABS: Erythrocyte Sedimentation Rate 19 mm/hr (0-30)
[2020-09-17 12:33] LABS: Mean Corp Hgb Conc 32.5 g/dL (32-36); Mean Corpuscular Hgb 31.6 pg (27.0-32.0); Mean Corpuscular Volume 97.3 fL (81-99); Mean Platelet Vol. 9.1 fl (6.2-12.0); Platelet Count 431 K/mm3 (150-450); RBC Distribution Width SD 46.5 fl (35.1-43.9); Red Blood Count 4.11 M/mm3 (4.2-5.4); White Blood Count 9.9 K/mm3 (4.4-11.0)
== END ==
PROVIDERS: PCP Family Medicine; Referring Provider Internal Medicine Gastroenterology; Visit Provider Internal Medicine Gastroenterology
DX: R19.7 Diarrhea, unspecified (principal)
CPT/HCPCS: 36415; 85027; 85652; 86140

== ENCOUNTER 2020-09-21 13:39 | Emergency (ER) | payer BC, SELFPAY ==
[2020-09-08 05:53] VITALS: BMI 40.4
[2020-09-21 13:41] VITALS: BP 141/100; PULSE 79; RESP 16; TEMP 35.6; O2SAT 100; BMI 39.9
[2020-09-21] MEDS: 0.9% Normal Saline 1,000 ML 1000 ML IV (14:00)
[2020-09-21] MEDS: Ondansetron 4 MG/2 ML Vial IV (14:00)
[2020-09-21] MEDS: Dicyclomine 10 MG Capsule 20 MG PO (14:00)
--- NOTE | 2020-09-21 14:03 | ED.DCSUM_ITS ---
History of Present Illness Chief Complaint: General Illness Detail of Chief Complaint: vomiting diarrhea - Abdominal Pain/Flank Pain Onset: Weeks - several Context: Gradual Onset Timing: Intermittent - pain Quality: Cramping - just before diarrhea, then resolves Current Severity: Gone Maximum Severity: Mild Worsened by: Food Relieved by: Nothing - Nausea/Vomiting/Emesis GI Symptom: Nausea, Vomiting Onset: Today Quality: Nonbilious. Negative for: Blood streaks, Coffee ground, Hematemesis - Diarrhea/Melena/Hematochezia GI Symptom: Diarrhea. Negative for: Melena, Hematochezia Onset: Weeks - several Stool Quality: Watery. Negative for: Mucous, Black, Maroon, JERI per rectum Severity: Severe - 10+ times per day Associated Symptoms: Negative for: Dysuria, Frequency, Hematuria, Urgency Narrative: Patient was admitted 1 or 2 weeks ago for hypokalemia as a result of vomiting and diarrhea, she tested negative for Covid and had a negative C. difficile and enteric bacterial panel, her numbers improved and she was discharged home to follow-up, has been scheduled for colonoscopy, the diarrhea has never let up, she states she followed up with GI and her PCP. She was placed on folic acid, vitamin B supplementation, in addition to metronidazole. Today, she has been vomiting, and feeling shaky and was concerned about potentially having low potassium again. She is taking no supplementation at home. Denies any new symptoms and no fevers this time, she did have fevers up to 104 last time. No one else in the house has this. - Past Medical History (1) Bipolar disorder Status: Chronic (2) Hypertension Status: Chronic (3) Prediabetes Status: Chronic Past Medical History - Allergies and Home Meds Allergies/Adverse Reactions: Allergies No Known Allergies Allergy (Verified 09/08/20 01:32) Primary Care Physician: Hieu Gonzalez MD [Primary Care Provider] - Surgical History: - - x 3. Lives: With Family Smoking Status: Never smoker Alcohol: None - Family History Maternal Family History: Family History (Last Updated 02/05/19 @ 14:44 by Jaye Gaviria) Father Heart disease Mother Cancer Family History: Reports: Cancer Paternal Family History: Family History (Last Updated 02/05/19 @ 14:44 by Jaye Gaviria) Father Heart disease Mother Cancer Family History: Reports: High Cholesterol, Heart Disease, Hypertension Review of Systems General: Reports: Malaise. Denies: Chills, Fever, Sweats Eyes: Denies: Visual changes - bilaterally, Diplopia ENT: Denies: Rhinorrhea, Sore throat Cardiovascular: Denies: Chest pain, Palpitations Respiratory: Denies: Dyspnea, Cough, Dyspnea on exertion Gastrointestinal: Reports: Abdominal pain, Nausea, Vomiting, Diarrhea. Denies: Melena, Hematochezia Genitourinary: Denies: Dysuria, Hematuria, Frequency Musculoskeletal: Denies: Back pain, Swelling, Extremity Pain Skin: Denies: Rash, Wounds Neurological: Denies: Headache, Weakness, Numbness Physical Exam Vital Signs/Narrative: Vital Signs Temp Pulse Resp BP Pulse Ox 09/21/20 13:41 96.1 F L 79 16 141/100 H 100 Inital Vital Signs reviewed: Yes General: Well nourished, Well developed, Obese, No Acute Distress Head: Normocephalic, Atraumatic Eyes: Perrl, EOMI ENT: Moist mucous membranes, No rhinorrhea Neck: Supple, Nontender Cardiovascular: Regular rate, Regular rhythm, No murmurs. Negative for: Tachycardia Respiratory: No distress, CTA bilaterally, Chest nontender Abdomen: Soft, Nontender, Nondistended, No masses, Hyperactive bowel sounds Back: Nontender, Normal Inspection Extremities: Nontender, No edema Skin: Normal color, No rash Neurological: Alert, Oriented x3, Cranial nerves II-XII grossly intact, Normal Strength, Normal Sensation, Normal Gait Psychological: Normal affect, Normal Mood Diagnostic/Tx/Re-eval Laboratory Tests 09/21/20 09/21/20 09/21/20 Range/Units 16:19 15:15 14:10 WBC (4.4-11.0) K/mm3 RBC (4.2-5.4) M/mm3 Hgb (12.0-15.0) g/dL Hct (37-47) % MCV (81-99) fL MCH (27.0-32.0) pg MCHC (32-36) g/dL RDW Std Deviation (35.1-43.9) fl RDW Coeff of Chet (11.6-14.6) % Plt Count (150-450) K/mm3 MPV (6.2-12.0) fl Immature Gran % (Auto) (0.0-0.9) % Neut % (Auto) (47-70) % Lymph % (Auto) (19-41) % [place] % (Auto) (0-10) % Eos % (Auto) (0-5) % Baso % (Auto) (0-1) % Absolute Neuts (auto) (2.0-7.7) X10^3/uL Absolute Lymphs (auto) (0.83-4.51) X10^3/uL Nucleated RBC % (0-5) % Sodium 134 L (136-145) mmol/L Potassium 4.6 Cancelled 6.3 H* (3.5-5.1) mmol/L Chloride 106 (98-107) mmol/L Carbon Dioxide 23.0 (21.0-32.0) mmol/L Anion Gap 5 (5-15) BUN 9 (7-18) mg/dL Creatinine 0.94 (0.55-1.02) mg/dL Estim Creat Clear Calc 83.97 ml/min Est GFR (MDRD) Af Amer 85 (>60) mL/min Est GFR (MDRD) Non-Af 70 (>60) mL/min BUN/Creatinine Ratio 9.6 L (10-20) RATIO Glucose 161 H (74-106) mg/dL Calcium 9.3 (8.5-10.1) mg/dL 09/21/20 Range/Units 14:10 WBC 5.4 (4.4-11.0) K/mm3 RBC 3.60 L (4.2-5.4) M/mm3 Hgb 11.1 L (12.0-15.0) g/dL Hct 36.3 L (37-47) % MCV 100.8 H (81-99) fL MCH 30.8 (27.0-32.0) pg MCHC 30.6 L D (32-36) g/dL RDW Std Deviation 51.7 H (35.1-43.9) fl RDW Coeff of Chet 14.1 (11.6-14.6) % Plt Count 255 (150-450) K/mm3 MPV 8.7 (6.2-12.0) fl Immature Gran % (Auto) 0.700 (0.0-0.9) % Neut % (Auto) 60.3 (47-70) % Lymph % (Auto) 27.6 (19-41) % [place] % (Auto) 7.4 (0-10) % Eos % (Auto) 3.1 (0-5) % Baso % (Auto) 0.9 (0-1) % Absolute Neuts (auto) 3.3 (2.0-7.7) X10^3/uL Absolute Lymphs (auto) 1.50 (0.83-4.51) X10^3/uL Nucleated RBC % 0 (0-5) % Sodium (136-145) mmol/L Potassium (3.5-5.1) mmol/L Chloride (98-107) mmol/L Carbon Dioxide (21.0-32.0) mmol/L Anion Gap (5-15) BUN (7-18) mg/dL Creatinine (0.55-1.02) mg/dL Estim Creat Clear Calc ml/min Est GFR (MDRD) Af Amer (>60) mL/min Est GFR (MDRD) Non-Af (>60) mL/min BUN/Creatinine Ratio (10-20) RATIO Glucose (74-106) mg/dL Calcium (8.5-10.1) mg/dL - Medical Decision Making Patient was treated with a liter of IV fluids and Zofran, she is feeling much better on reevaluation and tolerating oral fluids. Her stool was already tested for C. difficile and bacterial panel, all of that was negative I do not think it needs to be repeated. Her initial potassium came back elevated but hemolyzed, so needed to be repeated several times, hence significant delay in disposition for the patient but in the end came back within normal limits so it does not need to be replaced like it was last time which is the only reason she was admitted to the hospital. ED Disposition - Plan for ED Patient: Disposition: Home or Assisted Living Diagnosis: Nausea, vomiting and diarrhea Instructions: ED Diarrhea, Unknown Cause Prescriptions: Ondansetron [Zofran Odt] 8 mg PO Q8H PRN PRN #14 tablet PRN Reason: Nausea Prescription Printed Referrals: Hieu Gonzalez MD [Primary Care Provider] - Calvin Guerra MD [NON-STAFF] - Keep Junie appointment
[2020-09-21 14:15] LABS: Absolute Neutrophil Count 3.3 X10^3/uL (2.0-7.7); Basophil# 0.05 X10^3/uL; Basophil% 0.9 % (0-1); Eosinophil# 0.17 X10^3/uL; Eosinophils% 3.1 % (0-5); Hematocrit 36.3 % (37-47); Hemoglobin 11.1 g/dL (12.0-15.0); Lymphocyte % 27.6 % (19-41); Mean Corp Hgb Conc 30.6 g/dL (32-36); Mean Corpuscular Hgb 30.8 pg (27.0-32.0); Mean Corpuscular Volume 100.8 fL (81-99); Mean Platelet Vol. 8.7 fl (6.2-12.0); Monocyte% 7.4 % (0-10); NRBC Flagged by Analyzer 0 % (0-5); Neutrophil # 3.27 X10^3/uL (2.7-7.7); Neutrophil % 60.3 % (47-70); Platelet Count 255 K/mm3 (150-450); RBC Distribution Width CV 14.1 % (11.6-14.6); RBC Distribution Width SD 51.7 fl (35.1-43.9); White Blood Count 5.4 K/mm3 (4.4-11.0)
[2020-09-21 15:07] LABS: Anion Gap 5 (5-15); BUN 9 mg/dL (7-18); BUN/Creat Ratio 9.6 RATIO (10-20); Calcium,Total 9.3 mg/dL (8.5-10.1); Chloride 106 mmol/L (98-107); Creatinine, Serum 0.94 mg/dL (0.55-1.02); EST Glomerular Filtration Rate 70 mL/min (>60); Est Glom Filt Rate - Afr Amer 85 mL/min (>60); Estimated Creatinine Clearance 83.97 ml/min; Glucose 161 mg/dL (74-106); Potassium 6.3 mmol/L (3.5-5.1); Sodium Level 134 mmol/L (136-145)
[2020-09-21 16:45] LABS: Potassium 4.6 mmol/L (3.5-5.1)
[2020-09-21 17:05] VITALS: PULSE 73; RESP 15; O2SAT 97
--- NOTE | 2020-09-21 17:55 | ED.RN ---
pt notified of labs WNL and that MD will be in to discharge.
== END 2020-09-21 18:04 | disposition home or self-care (01) ==
PROVIDERS: Emergency Provider Emergency Medicine; PCP Family Medicine
DX: R11.2 Nausea with vomiting, unspecified (principal); R19.7 Diarrhea, unspecified; I10 Essential (primary) hypertension; F31.9 Bipolar disorder, unspecified; Z82.49 Family history of ischemic heart disease and other diseases of the circulatory system; Z83.49 Family history of other endocrine, nutritional and metabolic diseases
CPT/HCPCS: 36415; 80048; 84132; 85025; 96361; 96374; 99284; J7030; A4216; J2405

== ENCOUNTER → 2021-02-06 13:01 | Outpatient (CLI) | payer BC, SELFPAY ==
[2021-02-06 15:23] LABS: Hematocrit 38.5 % (37-47); Hemoglobin 13.2 g/dL (12.0-15.0); Mean Corp Hgb Conc 34.3 g/dL (32-36); Mean Corpuscular Hgb 31.4 pg (27.0-32.0); Mean Corpuscular Volume 91.4 fL (81-99); Mean Platelet Vol. 9.4 fl (6.2-12.0); Platelet Count 217 K/mm3 (150-450); RBC Distribution Width CV 13.8 % (11.6-14.6); RBC Distribution Width SD 45.7 fl (35.1-43.9); Red Blood Count 4.21 M/mm3 (4.2-5.4); White Blood Count 6.2 K/mm3 (4.4-11.0)
[2021-02-06 16:15] LABS: AST(SGOT) 65 U/L (15-37); Alanine Aminotransfer ALT/SGPT 112 U/L (13-56); Albumin, Serum 4.3 g/dL (3.2-5.0); Alkaline Phosphatase 92 U/L (45-117); Anion Gap 12 (5-15); BUN 8 mg/dL (7-18); BUN/Creat Ratio 9.6 RATIO (10-20); Calcium,Total 10.2 mg/dL (8.5-10.1); Chloride 97 mmol/L (98-107); Creatinine, Serum 0.83 mg/dL (0.55-1.02); EST Glomerular Filtration Rate 81 mL/min (>60); Est Glom Filt Rate - Afr Amer 98 mL/min (>60); GGTP 588 U/L (5-55); Globulin 4.3 g/dL (2.2-4.2); Glucose 302 mg/dL (74-106); Potassium 3.8 mmol/L (3.5-5.1); Protein, Total 8.6 g/dL (6.4-8.2); Sodium Level 132 mmol/L (136-145); Thyroid Stim Hormone (TSH) 3.38 uIU/mL (0.358-3.74)
== END ==
PROVIDERS: PCP Family Medicine; Referring Provider Psychiatry & Neurology Psychiatry; Visit Provider Psychiatry & Neurology Psychiatry
DX: Z51.81 Encounter for therapeutic drug level monitoring (principal); K76.9 Liver disease, unspecified
CPT/HCPCS: 36415; 80053; 80178; 82977; 84443; 85027

== ENCOUNTER → 2021-02-12 14:44 | Outpatient (CLI) | payer BC, SELFPAY | PROVIDERS: PCP Family Medicine; Referring Provider Family Medicine; Visit Provider Family Medicine | DX: U07.1 COVID-19 (principal) | CPT/HCPCS: 87635; U0005; U0003 ==

== ENCOUNTER → 2021-02-18 12:39 | Outpatient (CLI) | payer BC, SELFPAY ==
[2021-02-18 15:21] LABS: Absolute Neutrophil Count 5.3 X10^3/uL (2.0-7.7); Basophil# 0.05 X10^3/uL; Basophil% 0.7 % (0-1); Eosinophil# 0.13 X10^3/uL; Eosinophils% 1.9 % (0-5); Hematocrit 35.2 % (37-47); Hemoglobin 11.7 g/dL (12.0-15.0); Lymphocyte % 11.5 % (19-41); Mean Corp Hgb Conc 33.2 g/dL (32-36); Mean Corpuscular Hgb 30.9 pg (27.0-32.0); Mean Corpuscular Volume 92.9 fL (81-99); Mean Platelet Vol. 9.6 fl (6.2-12.0); Monocyte# 0.67 X10^3/uL; Monocyte% 9.6 % (0-10); NRBC Flagged by Analyzer 0 % (0-5); Neutrophil # 5.29 X10^3/uL (2.7-7.7); Neutrophil % 75.9 % (47-70); Platelet Count 218 K/mm3 (150-450); RBC Distribution Width CV 13.7 % (11.6-14.6); RBC Distribution Width SD 46.9 fl (35.1-43.9); Red Blood Count 3.79 M/mm3 (4.2-5.4)
[2021-02-18 15:39] LABS: Hemoglobin A1c 8.8 % (3.8-5.6)
[2021-02-18 16:15] LABS: ALB/GLOB Ratio 0.7 RATIO (0.9-2.4); AST(SGOT) 44 U/L (15-37); Alanine Aminotransfer ALT/SGPT 76 U/L (13-56); Albumin, Serum 3.6 g/dL (3.2-5.0); Alkaline Phosphatase 98 U/L (45-117); Anion Gap 9 (5-15); BUN 9 mg/dL (7-18); BUN/Creat Ratio 8.8 RATIO (10-20); Calcium,Total 9.9 mg/dL (8.5-10.1); Chloride 90 mmol/L (98-107); Creatinine, Serum 1.02 mg/dL (0.55-1.02); EST Glomerular Filtration Rate 64 mL/min (>60); Est Glom Filt Rate - Afr Amer 77 mL/min (>60); Globulin 5.2 g/dL (2.2-4.2); Glucose 620 mg/dL (74-106); Lipase 151 U/L (73-393); Potassium 4.7 mmol/L (3.5-5.1); Protein, Total 8.8 g/dL (6.4-8.2); Sodium Level 125 mmol/L (136-145)
== END ==
PROVIDERS: PCP Family Medicine; Referring Provider Family Medicine; Visit Provider Family Medicine
DX: R19.7 Diarrhea, unspecified (principal); E11.9 Type 2 diabetes mellitus without complications; J39.9 Disease of upper respiratory tract, unspecified
CPT/HCPCS: 36415; 80053; 80178; 83036; 83690; 85025; 87633; 87635; U0005; U0003

== ENCOUNTER → 2021-02-20 14:35 | Outpatient (CLI) | payer BC, SELFPAY | PROVIDERS: PCP Family Medicine; Referring Provider Psychiatry & Neurology Psychiatry; Visit Provider Psychiatry & Neurology Psychiatry | DX: Z51.81 Encounter for therapeutic drug level monitoring (principal); K76.9 Liver disease, unspecified; Z79.899 Other long term (current) drug therapy | CPT/HCPCS: 80178 ==

== ENCOUNTER 2021-03-12 14:30 | Emergency (ER) | payer BC, SELFPAY ==
[2021-03-12 14:31] VITALS: BP 118/66; PULSE 79; RESP 14; TEMP 36.9; O2SAT 97; BMI 37.8
--- NOTE | 2021-03-12 15:21 | CT_ITS ---
EXAM: CT ABDOMEN AND PELVIS WITHOUT INTRAVENOUS CONTRAST : 1980 CLINICAL INDICATION: lower abd pain, diarrhea TECHNIQUE: Helically acquired images were obtained of the abdomen and pelvis without intravenous contrast. This CT exam was performed using one or more of the following dose reduction techniques: automated exposure control, adjustment of the mA and/or kV according to patient size, and/or use of iterative reconstruction technique. This report was created using [employer] report generation technology. COMPARISON: None. FINDINGS: LOWER THORAX: Unremarkable. Lung bases are clear. No cardiomegaly. No significant pericardial effusion. ABDOMEN: LIVER: The liver is diffusely decreased in attenuation compatible fatty infiltration. The liver is enlarged in size measuring 17.3 cm. GALLBLADDER AND BILE DUCTS: There are several gallstones present but no inflammation. No gallbladder distention or wall edema. No intra- or extrahepatic biliary ductal dilation. PANCREAS: Unremarkable. No focal cystic mass. SPLEEN: Unremarkable. Normal size without focal cystic or solid mass. ADRENALS: Unremarkable. No nodules. KIDNEYS AND URETERS: There is a staghorn calculus in the left kidney. There is a small nonobstructing calyceal stone on the right. Normal renal size and position. STOMACH AND BOWEL: Unremarkable. No stomach or bowel distention. No focal inflammatory change. PELVIS: APPENDIX: No evidence of acute appendicitis. BLADDER: Unremarkable. REPRODUCTIVE: Unremarkable as visualized. No mass. ABDOMEN and PELVIS: INTRAPERITONEAL SPACE: Unremarkable. No ascites or other fluid collection. No free air. BONES/JOINTS: Unremarkable. No suspicious lytic or blastic abnormality. SOFT TISSUES: Unremarkable. No discrete abdominal or pelvic wall hernia. VASCULATURE: Unremarkable. Abdominal aorta is non-dilated. LYMPH NODES: Unremarkable. No enlarged lymph nodes. CT/Abdomen/Pelvis without Cont IMPRESSION: 1. Left-sided staghorn calculus. There is no obstruction. 2. Cholelithiasis with no evidence of cholecystitis. 3. Splenomegaly with fatty infiltration of the liver. Individualized dose optimization techniques were used for this CT. at 1709 Reported and signed by: Wade Lino MD Electronically Signed: Wade Lino MD at 17:08 EDT Tel , Service support ,
--- NOTE | 2021-03-12 15:27 | EDS_ITS ---
HPI History of Present Illness Chief Complaint: General Illness Informant: patient Narrative Narrative: Here with mother for evaluation concerns of exacerbation of her IBS with diarrhea. She has been having on and off symptoms for the past year. She is seen GI Dr. Guerra states 3 months ago with a colonoscopy reported inflammatory changes secondary to IBS. She was prescribed her bowel medicines to slow down her stools however cost was $900 she could not afford it. She was told to increase her fibers. She was recommended to discuss with her insurance per her report for the reason of the cost. Denies nausea or vomiting. States yesterday had pain that is new in the lower abdomen stating she had a fever this afternoon of one 1.9. She took Tylenol earlier this morning. Decreased urine output. No dysuria. No cough. Reports she is postmenopausal. She is a diabetic on Metformin and glipizide but she did not take her glipizide this morning. Denies any recent antibiotics. Prior similar symptoms: Yes PFSH PFSH Medical History Bipolar disorder Hypertension Home Medications bisoprolol fumarate 10 mg tablet 10 mg PO DAILY 02/05/19 [History Last Taken Unknown] clonazepam 2 mg tablet 2 mg PO BID 02/05/19 [History Last Taken Unknown] lithium carbonate 1,500 mg PO QHS 09/08/20 [History Last Taken Unknown] lurasidone 120 mg PO DAILY 09/08/20 [History Last Taken Unknown] sertraline 100 mg PO DAILY 09/08/20 [History Last Taken Unknown] spironolactone 100 mg PO DAILY 09/08/20 [History Last Taken Unknown] diphenoxylate-atropine [Lomotil] 1 tab PO BID PRN #30 tab 03/12/21 [Rx Last Taken Unknown] glimepiride 2 mg PO DAILY 03/12/21 [History Last Taken Unknown] metformin 1,000 mg PO BID 03/12/21 [History Last Taken Unknown] nitrofurantoin monohyd/m-cryst [Macrobid] 100 mg PO Q12H 5 Days #10 cap 03/12/21 [Rx Last Taken Unknown] ondansetron 4 mg PO Q6H PRN #10 tab 03/12/21 [Rx Last Taken Unknown] potassium chloride 20 meq PO DAILY #7 tab 03/12/21 [Rx Last Taken Unknown] Allergy/AdvReac Type Severity Reaction Status Date / Time No Known Allergies Allergy Verified 03/12/21 14:37 Family History Father Heart disease Mother Cancer lung- smoker Surgical History delivery delivered Social History Smoking Status: Never smoker alcohol intake: current details: social substance use type: does not use caffeine: Yes what type of physical activity do you participate in: none seatbelt use: always do you feel safe at home: Yes 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 [employer] ED Constitutional Constitutional ED: Denies chills, fever(s) or sweats Eyes Eyes: Denies change in vision ENT ENT ED: Denies dysphagia or sore throat Cardiovascular Cardiovascular: Denies chest pain, leg edema, palpitations or racing heartbeat Respiratory/Chest Respiratory/Chest: Denies cough, dyspnea or dyspnea on exertion Gastrointestinal Gastrointestinal: Reports abdominal pain and diarrhea; Denies nausea or vomiting Genitourinary Genitourinary ED: Denies dysuria, hematuria or urinary frequency Musculoskeletal Musculoskeletal: Denies back pain, extremity pain or neck pain Integumentary Denies rash or wounds Neurologic Neurologic: Denies headache(s), paresthesias or weakness EXAM Physical Exam Const Vital Signs: 03/12/21 14:31 03/12/21 16:08 03/12/21 16:09 Temperature 98.4 F 99.1 F Temperature Source Oral Oral Pulse Rate 79 75 Respiratory Rate 14 18 Respiratory Effort Normal Non-Labored Blood Pressure 118/66 117/61 Blood Pressure Mean 83 79 Pulse Ox 97 97 Oxygen Delivery Method Room Air Room Air 03/12/21 18:00 03/12/21 19:58 Temperature Temperature Source Pulse Rate 83 81 Respiratory Rate 18 16 Respiratory Effort Blood Pressure 127/59 H 129/60 H Blood Pressure Mean 81 Pulse Ox 97 97 Oxygen Delivery Method Room Air Positive well nourished and well developed General Appearance ED: well developed and NAD HEENT Reports moist mucous membranes normocephalic and atraumatic Eyes PERRL, EOMs intact bilaterally and conjunctivae normal General Eye ED: Yes normal appearance of both eyes Neck no lymphadenopathy and supple General: Negative for tenderness Chest Wall Chest: Negative for tenderness Resp normal respiratory effort and normal air movement Effort and Inspection: symmetric chest movement; Negative for respiratory distress Cardio regular rate, regular rhythm and no murmurs Peripheral Pulses: pulses 2+ throughout GI normal to inspection, nondistended, normoactive bowel sounds GI Narrative: Mild suprapubic tenderness. No guarding or rebound. Negative Franklin's or McBurney's tenderness. Palpation: Negative for guarding or rebound tenderness present Back/Spine no CVA tenderness and no thoracic nor lumbar tenderness Extremity normal to inspection General Extremety ED: Negative for edema or tenderness General Extremity: Negative for edema Neuro oriented x3 and no sensory deficits noted Sensorium / Orientation: awake and alert Skin no rashes or lesions noted and no wounds MDM MDM MDM Narrative Medical decision making narrative: Patient with nonsurgical abdomen on examination. Reporting new symptoms increasing lower abdominal pain with her diarrhea. Work-up initiated to rule out diverticulitis. White count 9.6. Creatinine 1.2 potassium 2.9 consistent with her reported diarrhea episodes since yesterday. Lipase normal. She had slight transaminitis. She had similar findings a few months ago that resolved. She has no right upper quadrant pain. CT scan noted cholelithiasis, noted staghorn calculus of the left kidney. Urine did note signs of infection. She has no flank pain, there is no ureteral stones. Culture sent. She started on Macrobid. She was given oral replacement potassium, reported she had an emesis however is able to keep her pills down. Is given additional fluids and Zofran. She reported headache therefore was able tolerate oral Tylenol with no recurrent emesis. She is given follow-up with urology due to the staghorn calculus. She try to get in with Dr. Jacqueline CLEMENT for second opinion. I discussed elevated liver enzymes with the patient with her cholelithiasis, she has no biliary colic symptoms. Prescription sent to pharmacy for potassium, Zofran, Macrobid, Lomotil to use as needed for diarrhea. All questions were answered. Lab Data Attestation: I reviewed the patient's lab results. Labs: Laboratory Results - last 24 hr 03/12/21 03/12/21 03/12/21 15:46 15:46 15:46 WBC 9.6 RBC 3.68 L Hgb 11.2 L Hct 32.9 L MCV 89.4 MCH 30.4 MCHC 34.0 RDW Std Deviation 43.9 RDW Coeff of Chet 13.4 Plt Count 179 MPV 9.0 Immature Gran % (Auto) 0.500 Neut % (Auto) 89.8 H Lymph % (Auto) 3.8 L [place] % (Auto) 4.4 Eos % (Auto) 1.3 Baso % (Auto) 0.2 Absolute Neuts (auto) 8.6 H Absolute Lymphs (auto) 0.36 L Nucleated RBC % 0 Differential Comment SCANNED Sodium 134 L Potassium 2.9 L Chloride 100 Carbon Dioxide 22.0 Anion Gap 12 BUN 14 Creatinine 1.20 H Estim Creat Clear Calc 65.13 Est GFR (MDRD) Af Amer 64 Est GFR (MDRD) Non-Af 53 L BUN/Creatinine Ratio 11.7 Glucose 198 H Calcium 10.1 Total Bilirubin 2.30 H AST 129 H ALT 165 H Alkaline Phosphatase 186 H Total Protein 8.1 Albumin 3.7 Globulin 4.4 H Albumin/Globulin Ratio 0.8 L Lipase 133 Serum , Qual NEGATIVE Urine Color Urine Clarity Urine pH Ur Specific [place] Urine Protein Urine Glucose (UA) Urine Ketones Urine Occult Blood Urine Nitrite Urine Bilirubin Urine Urobilinogen Ur Leukocyte Esterase Urine RBC Urine WBC Ur Squamous Epith Cells Urine Bacteria Urine Mucus POC Glucose 03/12/21 03/12/21 16:07 17:06 WBC RBC Hgb Hct MCV MCH MCHC RDW Std Deviation RDW Coeff of Chet Plt Count MPV Immature Gran % (Auto) Neut % (Auto) Lymph % (Auto) [place] % (Auto) Eos % (Auto) Baso % (Auto) Absolute Neuts (auto) Absolute Lymphs (auto) Nucleated RBC % Differential Comment Sodium Potassium Chloride Carbon Dioxide Anion Gap BUN Creatinine Estim Creat Clear Calc Est GFR (MDRD) Af Amer Est GFR (MDRD) Non-Af BUN/Creatinine Ratio Glucose Calcium Total Bilirubin AST ALT Alkaline Phosphatase Total Protein Albumin Globulin Albumin/Globulin Ratio Lipase Serum , Qual Urine Color Yellow Urine Clarity Sl. Cloudy Urine pH 7.0 Ur Specific [place] 1.010 Urine Protein 100 H Urine Glucose (UA) Normal Urine Ketones 5 H Urine Occult Blood 50 H Urine Nitrite Negative Urine Bilirubin Negative Urine Urobilinogen Normal Ur Leukocyte Esterase 500 H Urine RBC 5-10 SEEN Urine WBC 50-100 SEEN Ur Squamous Epith Cells 0-5 SEEN Urine Bacteria RARE Urine Mucus 0 SEEN POC Glucose 187 H Radiography Diagnostic Testing: Radiology Impression Abdomen/Pelvis CT 03/12/21 15:21 IMPRESSION: 1. Left-sided staghorn calculus. There is no obstruction. 2. Cholelithiasis with no evidence of cholecystitis. 3. Splenomegaly with fatty infiltration of the liver. Individualized dose optimization techniques were used for this CT. at 1709 Reported and signed by: Wade Lino MD Electronically Signed: Wade Lino MD at 17:08 EDT Tel , Service support , Discharge Plan Triage Chief Complaint: General Illness ED Provider: Julio César Hernandez Dx/Rx/DC Orders Clinical Impression: Hypokalemia due to excessive gastrointestinal loss of potassium, Elevated LFTs, Chronic diarrhea, UTI (urinary tract infection), Staghorn renal calculus, Abdominal pain Instructions: Abdominal Pain, IBS Diet Lifestyle, Urinary Tract Infections in Women, Self-Care for Vomiting and Diarrhea, ED Hypokalemia Prescriptions: New diphenoxylate-atropine [Lomotil] 2.5-0.025 mg tablet 1 tab PO BID PRN (Reason: diarrhea) Qty: 30 RF: 0 nitrofurantoin monohyd/m-cryst [Macrobid] 100 mg capsule 100 mg PO Q12H 5 Days Qty: 10 RF: 0 potassium chloride 20 mEq tablet extended release 20 meq PO DAILY Qty: 7 RF: 0 ondansetron 4 mg tablet,disintegrating 4 mg PO Q6H PRN (Reason: nausea and vomiting) Qty: 10 RF: 0 No Action clonazepam [Klonopin] 2 mg tablet 2 mg PO BID RF: 0 bisoprolol fumarate 10 mg tablet 10 mg PO DAILY RF: 0 spironolactone 100 MG tablet 100 mg PO DAILY RF: 0 sertraline 100 MG tablet 100 mg PO DAILY RF: 0 lithium carbonate 300 MG capsule 1,500 mg PO QHS RF: 0 lurasidone 120 MG tablet 120 mg PO DAILY RF: 0 metformin 500 mg tablet 1,000 mg PO BID RF: 0 glimepiride 2 mg tablet 2 mg PO DAILY RF: 0 Primary Care Provider: Hieu Gonzalez Referrals: Hieu Gonzalez MD [Primary Care Provider] - 3-5 Days Stephen Durham MD [STAFF PHYSICIAN] - 5-7 Days (left Staghorn calculus, UTI) Omega Phillips DO [STAFF PHYSICIAN] - 3-5 Days Disposition Disposition: Home, Self Care Discharge Date/Time: 03/12/21 20:00
[2021-03-12] MEDS: 0.9% Normal Saline 1,000 ML 1000 ML IV (16:05)
[2021-03-12 16:09] VITALS: BP 117/61; PULSE 75; RESP 18; TEMP 37.3; O2SAT 97
[2021-03-12 16:09] LABS: Absolute Lymphocyte Count 0.36 X10^3/uL (0.83-4.51); Absolute Neutrophil Count 8.6 X10^3/uL (2.0-7.7); Basophil# 0.02 X10^3/uL; Basophil% 0.2 % (0-1); Eosinophil# 0.12 X10^3/uL; Eosinophils% 1.3 % (0-5); Hematocrit 32.9 % (37-47); Hemoglobin 11.2 g/dL (12.0-15.0); Lymphocyte # 0.36 X10^3/ul (0.83-4.51); Lymphocyte % 3.8 % (19-41); Mean Corpuscular Hgb 30.4 pg (27.0-32.0); Mean Corpuscular Volume 89.4 fL (81-99); Monocyte# 0.42 X10^3/uL; Monocyte% 4.4 % (0-10); NRBC Flagged by Analyzer 0 % (0-5); Neutrophil # 8.59 X10^3/uL (2.7-7.7); Neutrophil % 89.8 % (47-70); POSITIVE DIFFERENTIAL YES; Platelet Count 179 K/mm3 (150-450); RBC Distribution Width CV 13.4 % (11.6-14.6); RBC Distribution Width SD 43.9 fl (35.1-43.9); Red Blood Count 3.68 M/mm3 (4.2-5.4); White Blood Count 9.6 K/mm3 (4.4-11.0)
[2021-03-12 16:16] LABS: Bedside Glucose 187 mg/dL (70-110)
[2021-03-12 16:19] LABS: ALB/GLOB Ratio 0.8 RATIO (0.9-2.4); AST(SGOT) 129 U/L (15-37); Alanine Aminotransfer ALT/SGPT 165 U/L (13-56); Albumin, Serum 3.7 g/dL (3.2-5.0); Alkaline Phosphatase 186 U/L (45-117); Anion Gap 12 (5-15); BUN 14 mg/dL (7-18); BUN/Creat Ratio 11.7 RATIO (10-20); Calcium,Total 10.1 mg/dL (8.5-10.1); Chloride 100 mmol/L (98-107); EST Glomerular Filtration Rate 53 mL/min (>60); Est Glom Filt Rate - Afr Amer 64 mL/min (>60); Estimated Creatinine Clearance 65.13 ml/min; Globulin 4.4 g/dL (2.2-4.2); Glucose 198 mg/dL (74-106); Lipase 133 U/L (73-393); Potassium 2.9 mmol/L (3.5-5.1); Protein, Total 8.1 g/dL (6.4-8.2); Sodium Level 134 mmol/L (136-145)
[2021-03-12 16:24] LABS: Differential Indicated SCAN CRITERIA MET
[2021-03-12 16:42] LABS: Differential Comment SCANNED
[2021-03-12 16:55] LABS: Internal QC Validated? YES +Cl - CLEAR BKGD; Pregnancy, Serum, hCG Quali. NEGATIVE Negative
[2021-03-12 17:19] LABS: Mucous, Urine 0 SEEN /hpf (<or=2+)
[2021-03-12 17:23] LABS: Color, Urine Yellow (Yellow); Glucose, Dipstick Normal (Normal); Ketone-Dipstick 5 mg/dl (Negative); Leukocyte Esterase-Dipstick 500 /ul (Negative); Nitrite-Dipstick Negative (Negative); Occult Blood-Urine 50 /ul (Negative); Protein-Dipstick 100 mg/dl (Negative); Urine Bilirubin Dipstick Negative (Negative); Urine Clarity Sl. Cloudy (Clear); Urine Urobilinogen Normal (Normal)
[2021-03-12 17:28] LABS: White Blood Cells 50-100 SEEN /hpf (0-5)
[2021-03-12 17:29] LABS: Bacteria RARE /hpf (None Seen); Red Blood Cells-Urine 5-10 SEEN /hpf (0-5); Squamous Epithelial Cells - UA 0-5 SEEN /hpf (5-10)
[2021-03-12] MEDS: Nitrofurantoin Macrocrystals 100 MG Capsule PO (17:47)
[2021-03-12] MEDS: Potassium Chloride Oral Tablet 20 MEQ 60 MEQ PO (17:47)
[2021-03-12 18:00] VITALS: BP 127/59; PULSE 83; RESP 18; O2SAT 97
[2021-03-12] MEDS: Ondansetron 4 MG/2 ML Vial IV (18:47)
[2021-03-12] MEDS: Acetaminophen 500 MG Tablet 1000 MG PO (19:13)
[2021-03-12 19:58] VITALS: BP 129/60; PULSE 81; RESP 16; O2SAT 97
== END 2021-03-12 20:00 | disposition home or self-care (01) ==
PROVIDERS: Emergency Provider Emergency Medicine; PCP Family Medicine
DX: E87.6 Hypokalemia (principal); N39.0 Urinary tract infection, site not specified; N20.0 Calculus of kidney; R10.9 Unspecified abdominal pain; K76.0 Fatty (change of) liver, not elsewhere classified; K80.20 Calculus of gallbladder without cholecystitis without obstruction; I10 Essential (primary) hypertension; F31.9 Bipolar disorder, unspecified; E11.9 Type 2 diabetes mellitus without complications; N95.9 Unspecified menopausal and perimenopausal disorder; K58.0 Irritable bowel syndrome with diarrhea; Z79.84 Long term (current) use of oral hypoglycemic drugs; Z79.899 Other long term (current) drug therapy
CPT/HCPCS: 74176; 80053; 81001; 82962; 83690; 84703; 85025; 87077; 87086; 87088; 87186; 96361; 96374; 99284; J7030; J2405

== ENCOUNTER → 2021-03-27 14:19 | Outpatient (CLI) | payer BC, SELFPAY ==
[2021-03-27 14:59] LABS: Absolute Lymphocyte Count 0.97 X10^3/uL (0.83-4.51); Absolute Neutrophil Count 4.9 X10^3/uL (2.0-7.7); Basophil# 0.06 X10^3/uL; Basophil% 0.9 % (0-1); Eosinophil# 0.19 X10^3/uL; Eosinophils% 2.9 % (0-5); Hematocrit 34.3 % (37-47); Hemoglobin 11.2 g/dL (12.0-15.0); Lymphocyte # 0.97 X10^3/ul (0.83-4.51); Lymphocyte % 14.6 % (19-41); Mean Corp Hgb Conc 32.7 g/dL (32-36); Mean Corpuscular Hgb 28.9 pg (27.0-32.0); Mean Corpuscular Volume 88.6 fL (81-99); Mean Platelet Vol. 8.6 fl (6.2-12.0); Monocyte# 0.39 X10^3/uL; Monocyte% 5.9 % (0-10); NRBC Flagged by Analyzer 0 % (0-5); Neutrophil # 4.94 X10^3/uL (2.7-7.7); Neutrophil % 74.3 % (47-70); Platelet Count 326 K/mm3 (150-450); RBC Distribution Width CV 13.6 % (11.6-14.6); RBC Distribution Width SD 43.9 fl (35.1-43.9); Red Blood Count 3.87 M/mm3 (4.2-5.4); White Blood Count 6.6 K/mm3 (4.4-11.0)
[2021-03-27 15:15] LABS: Erythrocyte Sedimentation Rate 24 mm/hr (0-30)
[2021-03-27 15:23] LABS: ALB/GLOB Ratio 0.9 RATIO (0.9-2.4); AST(SGOT) 42 U/L (15-37); Alanine Aminotransfer ALT/SGPT 59 U/L (13-56); Alkaline Phosphatase 205 U/L (45-117); Anion Gap 6 (5-15); BUN 18 mg/dL (7-18); BUN/Creat Ratio 16.4 RATIO (10-20); CRP 9.98 mg/L (0.0-3.0); Calcium,Total 10.2 mg/dL (8.5-10.1); Chloride 106 mmol/L (98-107); EST Glomerular Filtration Rate 58 mL/min (>60); Est Glom Filt Rate - Afr Amer 71 mL/min (>60); Ferritin 331 ng/mL (8-252); Globulin 4.4 g/dL (2.2-4.2); Glucose 169 mg/dL (74-106); Potassium 3.7 mmol/L (3.5-5.1); Protein, Total 8.4 g/dL (6.4-8.2); Sodium Level 134 mmol/L (136-145)
[2021-03-31 17:05] LABS: ANTINUCLEAR ANTIBODIES DIRECT Negative (Negative); Anti-Mitochondrial AB <20.0 Units (0.0-20.0)
[2021-04-04 04:07] LABS: Ceruloplasmin 41.4 mg/dL (19.0-39.0); HEPATITIS B SURFACE AG Negative (Negative); Hepatitis A IgM Antibody Negative (Negative); Hepatitis B Core AB IgM Negative (Negative)
[2021-04-04 13:58] LABS: Anti-Smooth Muscle ABS 5 Units (0-19); Copper, Serum or Plasma 210 ug/dL (80-158); Hep C Antibodies 0.2 s/co ratio (0.0-0.9)
--- NOTE | 2021-07-09 14:59 | HP.PCM_ITS ---
History and Physical Date of Admission: 07/24/21 Visit Reasons: 1 M FU Chief Complaint: BC Consult Allergies No Known Allergies Allergy (Verified 03/27/21 13:17) [facility] Medical History (Updated 04/24/21 @ 16:[address] 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 She is additionally diagnosed with diabetes that is not well managed at this point. Diarrhea ? possibly related to alcohol consumption, metformin, small bacterial overgrowth. Medications initiated colestipol 2pills BID. Biochemical workup ? Autoimmune hepatitis and infectious hepatitis normal. Ceruloplasmin and copper elevated secondary to acute liver injury r/t alcohol. Feels that her symptoms have been improving greatly. Denies colestipol side effects. Bowel movements occur 1-2 times a day and are a normal consistency. Urgency and incontinence are resolved. Denies alcohol use in the last couple months. Discussed counseling if the need arises. ROS Const Constitutional: Positive for weight change (Planned) Gastro GI: Positive for change in bowel habits (Normalization) Psych Psychiatric: Positive for anxiety and Positive for depression Exam Const General: cooperative and comfortable Nutritional Appearance: average body habitus and well nourished [facility] Head: normal to inspection Ears: hearing grossly normal bilaterally Nose: external nose normal Face and sinus: normal facial exam Mouth: oral mucosae normal Throat: posterior oropharynx normal Eyes General: appearance normal, both eyes and all related structures Neck Neck: normal visual inspection Chest Chest palpation & inspection: normal inspection of the chest and normal palpation of entire chest wall Resp Effort & Inspection: normal respiratory effort Auscultation: Bilateral: Clear to Auscultation Cardio Palpation: normal PMI Rate: regular rate Rhythm: regular rhythm GI Inspection: normal to inspection Auscultation: normal bowel sounds Percussion: normal to percussion Palpation: no hepatosplenomegaly Skin General: no rashes or lesions noted Neuro General: patient alert Extrem General: normal to inspection Psych Affect: normal affect Quality Reporting Tobacco Screening ([facility] 138) Smoking Status: Never smoker Assessment and Plan Assessment and Plan (1) Alcoholic hepatitis: Status: Acute Plan - Dr. Duff Friend, DO: Her LFTs show that her alcoholic hepatitis is improving. I explained to her mother the fact that she does not have thrombocytopenia, coagulopathy, normal INR and PTT I suspect that she does not have cirrhosis. However we will get elastography and possible liver biopsy. (2) Fatty liver disease, nonalcoholic: Status: Acute Plan - Dr. Duff Friend, DO: Her fatty liver disease is secondary to alcoholic liver disease. This was confirmed because of the hepatomegaly that was seen on her ultrasound. Her liver span was 23 cm. She has not had any alcohol in the last 6 weeks. She is scheduled to get an elastography. (3) Diarrhea: Status: Acute Plan - Dr. Duff Friend, DO: I believe her diarrhea was secondary to alcoholic gastritis and dumping secondary to the high carbohydrate load associated with the alcohol intake. She is doing very well with colestipol therapy. She is not having any breakthrough symptoms. She is actually having 1 or 2 normal bowels per day. We will continue this for the next 3 months. I have re-examined the patient. There are no clinical changes since date of exam.
== END ==
PROVIDERS: PCP Family Medicine; Referring Provider Internal Medicine Gastroenterology; Visit Provider Internal Medicine Gastroenterology
DX: R79.89 Other specified abnormal findings of blood chemistry (principal)
CPT/HCPCS: 36415; 80053; 80074; 82390; 82525; 82728; 83516; 85025; 85652; 86038; 86140; 86225; 86235

== ENCOUNTER 2021-07-24 07:50 | Outpatient (CLI) | payer OTHER, SELFPAY ==
[2021-07-24] VITALS (10 sets, daily range): BP systolic 113–131; BP diastolic 77–99; PULSE 64–80; RESP 13–17; TEMP 37.1; O2SAT 37–98; BMI 36.9
--- NOTE | 2021-07-24 | LIVB_PTH ---
PATIENT: MARIIA DAVIDSON LOC: CT U#:[id number] AGE/SX: 40/F ROOM: RE07/24/[address]: Dr. Omega Phillips DO : 1980 BED: DIS: 07/24/2021 SPEC #: [id number] RECD: 07/24/21 09:34 STATUS: CASH GEOVANNI #: [id number] VICTORINA: 07/24/21 00:[address]: Omega Phillips DEPT: SURGICAL PATHOLOGY RECD BY: Whitney Flores ENTERED: 07/24/21 11:31 SP TYPE: LIVER BX OTHR DR: Dr. Hieu Gonzalez MD Tissues: Liver, NOS Procedures: PAS with Diastase (control) Trichrome (control) Special Stain Group II PAS Stain (control) Surgery Specimen Level V Retic (control) Iron Stain (control) HEADER OPERATION: CT-guided liver biopsy PRE-OP DIAGNOSIS: Fatty liver TISSUE SUBMITTED: Right lobe liver 18-gauge x3 MICROSCOPIC DIAGNOSIS Right lobe of liver, CT-guided core biopsy: Hepatic steatosis with focal bridging fibrosis. See comment. AM:key 07/27/2021 COMMENT Sections show microvesicular and macrovesicular steatosis throughout the biopsy. Trichrome stain reveals fibrosis in portal areas, focally portal to portal extension and ?chicken-wire? fibrosis within the liver parenchyma. Iron stain does not reveal intraparenchymal deposition of iron. Reticulin stain reveals a normal hepatic parenchymal architecture. PAS stain with and without diastase does not reveal accumulation of abnormal proteins. All matched controls are appropriate. The biopsy overall is consistent with grade 1, stage 2-3, modified Knodell scoring system for chronic hepatic inflammation and associated fibrosis. Clinical correlation is suggested. Case has been reviewed in consultation with Dr. Burger who concurs with the above diagnosis. IDC:HAILY MICROSCOPIC DESCRIPTION Slides are reviewed. GROSS DESCRIPTION Received in fixative is one container labeled with the patient's name and designated liver biopsy. The specimen consists of three elongated fragments of rolon soft tissue each measuring 1.7 cm in length and 0.1 cm in diameter. The entire specimen is submitted in one cassette. / SJ:key 07/24/2021 TC:3 CPT: 80268, 68314 x3
--- NOTE | 2021-07-24 08:07 | CT_ITS ---
PROCEDURE: CT DIRECTED CORE LIVER BIOPSY INDICATION: Female, 40 years old. Cirrhosis. PHYSICIAN: Dr. THEODORE Alegre CONSENT: Written informed consent was obtained having explained the risks, benefits and alternatives in detail with the patient who accepted the risks and agreed to proceed. Laboratory review and clinical assessment was performed. CONSCIOUS SEDATION PROTOCOL: The Drugs used were: 2 mg Versed, IV., and 50 mcg Fentanyl, IV. The sedation time was: 14 minutes. Conscious sedation was started at 9:16 AM and terminated at 9:30 AM. The conscious sedation protocol was independently monitored. RADIATION DOSAGE (If Supplied By Facility): CTDIvol = ( 23 ) mGy, DLP = ( A 12.46 ) mGycm Individualized dose optimization techniques were used for this CT. TECHNIQUE: Using CT image guidance with image documentation, a suitable location in the right lobe of the liver was identified. Using an anterior approach , puncture of the liver was uneventful with an 18-gauge core needle system. 3, 18-gauge core samples were obtained, and submitted in formalin to the pathologist for further assessment. Followup CT scan revealed no distinct sequelae. CT/Biopsy/Inj or Needle Placement IMPRESSION: 1. CT directed core needle biopsy of the liver, using CT image guidance with image documentation as described. 2. Conscious Sedation protocol utilized with independent monitoring. Electronically Signed: Stepan Birmingham MD at 11:11 [facility] ,
[2021-07-24 08:15] LABS: Platelet Count 224 K/mm3 (150-450)
[2021-07-24 08:58] LABS: International Normalized Ratio 0.9; Prothrombin Time (Protime)PT. 11.7 SECONDS (11.7-14.9)
[2021-07-24] MEDS: fentaNYL 100 MCG/2 ML Ampul IV (09:16)
[2021-07-24] MEDS: Midazolam 2 MG/2 ML Syringe IV (09:18)
[2021-07-24] MEDS: 0.9% Saline Lock 10 ML Syringe IV (09:19)
[2021-07-24] MEDS: Lidocaine 2% (20 ml mdv) 20 ML Vial INFILT (09:25)
== END 2021-07-24 23:59 | disposition home or self-care (01) ==
PROVIDERS: PCP Family Medicine; Referring Provider Internal Medicine Gastroenterology; Visit Provider Internal Medicine Gastroenterology
DX: K76.0 Fatty (change of) liver, not elsewhere classified (principal); E11.9 Type 2 diabetes mellitus without complications; R19.7 Diarrhea, unspecified; K70.10 Alcoholic hepatitis without ascites
CPT/HCPCS: 47000; 36415; 77012; 85049; 85610; 85730; 88307; 88313; 99156; J7040; A4216

== ENCOUNTER 2021-07-29 12:45 | Emergency (ER) | payer OTHER, SELFPAY ==
[2021-07-29 12:46] VITALS: BP 129/86; PULSE 74; RESP 18; TEMP 36.1; O2SAT 97; BMI 36.1
--- NOTE | 2021-07-29 13:17 | CT_ITS ---
STUDY: CT ABDOMEN AND PELVIS WITH CONTRAST REASON FOR EXAM: Female, 40 years old. One day history of epigastric pain. History of alcoholic parents. Recent liver biopsy. RADIATION DOSAGE (If Supplied By Facility): CTDIvol = ( 21.33 ) mGy, DLP = ( 1301.12 ) mGycm TECHNIQUE: Transaxial images were obtained from the dome of the diaphragm to the symphysis pubis without oral contrast. IV 100mL Isovue-300 was administered. Sagittal and coronal images were reconstructed. Individualized dose optimization techniques were used for this CT. COMPARISON: Comparison is made with prior study dated 03/12/2021. FINDINGS: The visualized lung bases are unremarkable. The visualized portions of the heart are within normal limits. There is decreased attenuation of the liver consistent with steatosis. Hepatomegaly. There are multiple small gallstones. There is moderate splenomegaly. Normal pancreas. Normal bilateral adrenal glands. 3 mm calculus in the midpole calyx of the right kidney. Large staghorn calculus is seen in the left kidney. No evidence of hydronephrosis at this time. Normal visualized stomach. Normal small intestine. Normal colon. The appendix is visualized and appears normal. Normal abdominal aorta. Normal inferior vena cava. Normal retroperitoneum. Normal urinary bladder. Normal abdominal wall. Normal osseous structures. CT/Abdomen/Pelvis W IV Cont ONLY IMPRESSION: Hepatomegaly and diffuse fatty infiltration of the liver. Multiple small gallstones. Splenomegaly. Staghorn calculus in the left kidney. Electronically Signed: Stepan Birmingham MD at 14:59 EST ,
--- NOTE | 2021-07-29 13:30 | EX.ED.DYSGE1 ---
HPI History of Present Illness Chief Complaint: Abd Pain Informant: patient Narrative Narrative: Patient presents with epigastric and right upper quadrant area pain. This has been going on since yesterday but it sounds like she has been having some off and on for a little while. She has been diagnosed with elevated liver function test thought to be due to may be either fatty liver or prior alcohol use. She has not drank in about a year. She just had a liver biopsy on Tuesday. She was fine Tuesday and Tuesday. No real nausea vomiting diarrhea or change in bowel habits. No change in medications. The discomfort is near the biopsy site but not isolated just to that. Nothing specifically makes it better or worse. [facility] Medical History Alcohol abuse Alcoholic hepatitis Bipolar disorder Breast lump Diarrhea Fatty liver disease, nonalcoholic Gallstones GERD (gastroesophageal reflux disease) Hives Hypertension IBS (irritable bowel syndrome) Pneumonia Home Medications bisoprolol fumarate 10 mg tablet 10 mg PO DAILY 02/05/19 [History Last Taken Unknown] clonazepam 2 mg tablet 2 mg PO BID 02/05/19 [History Last Taken Unknown] lithium carbonate 1,500 mg PO QHS 09/08/20 [History Last Taken Unknown] lurasidone 120 mg PO DAILY 09/08/20 [History Last Taken Unknown] sertraline 100 mg PO DAILY 09/08/20 [History Last Taken Unknown] spironolactone 100 mg PO DAILY 09/08/20 [History Last Taken Unknown] diphenoxylate-atropine [Lomotil] 1 tab PO BID PRN #30 tab 03/12/21 [Rx Last Taken Unknown] glimepiride 2 mg PO DAILY 03/12/21 [History Last Taken Unknown] metformin 1,000 mg PO BID 03/12/21 [History Last Taken Unknown] nitrofurantoin monohyd/m-cryst [Macrobid] 100 mg PO Q12H 5 Days #10 cap 03/12/21 [Rx Last Taken Unknown] ondansetron 4 mg PO Q6H PRN #10 tab 03/12/21 [Rx Last Taken Unknown] potassium chloride 20 meq PO DAILY #7 tab 03/12/21 [Rx Last Taken Unknown] colestipol 1 gram tablet See Rx Instructions .ROUTE .COMPLEX #120 tab 06/15/21 [Rx Last Taken Unknown] omeprazole 20 mg PO DAILY #30 cap 07/29/21 [Rx Last Taken Unknown] Allergy/AdvReac Type Severity Reaction Status Date / Time No Known Allergies Allergy Verified 07/29/21 12:47 Family History Father Heart disease Mother Cancer lung- smoker Surgical History delivery delivered Social History Smoking Status: Never smoker alcohol intake: current details: social substance use type: does not use caffeine: Yes what type of physical activity do you participate in: none seatbelt use: always do you feel safe at home: Yes 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 [employer] ED Constitutional Constitutional ED: Denies chills or fever(s) ENT ENT ED: Denies rhinorrhea or sore throat Cardiovascular Cardiovascular: Denies chest pain, palpitations or racing heartbeat Respiratory/Chest Respiratory/Chest: Denies cough, dyspnea or sputum Gastrointestinal Gastrointestinal: Reports abdominal pain; Denies diarrhea, nausea or vomiting Genitourinary Genitourinary ED: Denies dysuria Musculoskeletal Musculoskeletal: Denies back pain or myalgias Integumentary Denies abscess or rash Psychiatric Psychiatric: Reports anxiety and depression Endocrine Endocrinology: Denies polydipsia or polyuria Allergic/Immunologic Allergic/Immunologic ED: Denies mouth swelling or urticaria EXAM Physical Exam Const Vital Signs: 07/29/21 12:46 Temperature 97 F L Temperature Source Temporal Pulse Rate 74 Respiratory Rate 18 Blood Pressure 129/86 H Blood Pressure Mean 100 Pulse Ox 97 Oxygen Delivery Method Room Air Positive well nourished and well developed General Appearance ED: well developed and NAD; Negative for cyanotic or diaphoretic HEENT Reports moist mucous membranes Eyes General Eye ED: Negative for pale conjunctiva or scleral icterus Neck no JVD Chest Wall inspection of chest normal Resp normal respiratory effort and clear to auscultation bilaterally Effort and Inspection: Negative for pain with movement Auscultation: Negative for rales, rhonchi or wheezes Cardio regular rate and regular rhythm GI normal to inspection, nondistended, normoactive bowel sounds GI Narrative: Biopsies site has minimal contusion. Is not swollen. No erythema or drainage. It looks as I would expect for this time. There is some mild tenderness diffusely in the right upper quadrant and even more in the epigastric area. No tenderness anywhere else in the abdomen. No rebound or guarding. Palpation: soft Back/Spine no CVA tenderness Neuro oriented x3 Sensorium / Orientation: alert Psych mental status grossly normal Skin no rashes or lesions noted and no wounds Skin Narrative: No rash or wound. She has a healing biopsy site though that looks normal. MDM MDM MDM Narrative Medical decision making narrative: Patient does not have elevated white count. Hemoglobin and platelets are also normal. Electrolytes show mildly decreased potassium but otherwise normal. Liver function test and lipase are completely normal. CT scan showed no acute process. There are multiple gallstones but this was known. However, she does not have focal tenderness there. Most of her discomfort is epigastric. Although CT is not the best study for gallbladder there is no sign of inflammation or other changes. There is no sign of a postoperative hematoma or fluid collection. I think we get the patient home for follow-up. She has had pains in these areas for a while. We will start her on PPI. We discussed reasons to return that include worsening pain, nausea, vomiting, fevers or other concerns. Lab Data Attestation: I reviewed the patient's lab results. Labs: Laboratory Results - last 24 hr 07/29/21 07/29/21 13:50 13:50 WBC 8.5 RBC 4.12 L Hgb 12.8 Hct 36.6 L MCV 88.8 MCH 31.1 MCHC 35.0 RDW Std Deviation 43.6 RDW Coeff of Chet 13.3 Plt Count 226 MPV 8.5 Immature Gran % (Auto) 0.500 Neut % (Auto) 73.9 H Lymph % (Auto) 15.8 L [place] % (Auto) 6.0 Eos % (Auto) 3.2 Baso % (Auto) 0.6 Absolute Neuts (auto) 6.3 Absolute Lymphs (auto) 1.34 Nucleated RBC % 0 Sodium 136 Potassium 3.0 L Chloride 102 Carbon Dioxide 24.0 Anion Gap 10 BUN 15 Creatinine 0.84 Estim Creat Clear Calc 93.04 Est GFR (MDRD) Af Amer 96 Est GFR (MDRD) Non-Af 80 BUN/Creatinine Ratio 17.9 Glucose 87 Calcium 10.0 Total Bilirubin 1.00 AST 20 ALT 33 Alkaline Phosphatase 73 Total Protein 7.9 Albumin 4.1 Globulin 3.8 Albumin/Globulin Ratio 1.1 Lipase 104 Radiography Diagnostic Testing: Clinical Impression(s) from Imaging Studies Abdomen/Pelvis CT 07/29/21 13:17 IMPRESSION: Hepatomegaly and diffuse fatty infiltration of the liver. Multiple small gallstones. Splenomegaly. Staghorn calculus in the left kidney. Electronically Signed: Stepan Birmingham MD at 14:59 EST , Discharge Plan Triage Chief Complaint: Abd Pain ED Provider: Kale Tapia Dx/Rx/DC Orders Clinical Impression: Acute epigastric pain Instructions: ED Abdominal Pain Gallstone Poss, ED Epigastric Pain Uncertain Cause Prescriptions: New omeprazole 20 mg capsule,delayed release(DR/EC) 20 mg PO DAILY Qty: 30 RF: 0 No Action clonazepam [Klonopin] 2 mg tablet 2 mg PO BID RF: 0 bisoprolol fumarate 10 mg tablet 10 mg PO DAILY RF: 0 spironolactone 100 MG tablet 100 mg PO DAILY RF: 0 sertraline 100 MG tablet 100 mg PO DAILY RF: 0 lithium carbonate 300 MG capsule 1,500 mg PO QHS RF: 0 lurasidone 120 MG tablet 120 mg PO DAILY RF: 0 metformin 500 mg tablet 1,000 mg PO BID RF: 0 glimepiride 2 mg tablet 2 mg PO DAILY RF: 0 diphenoxylate-atropine [Lomotil] 2.5-0.025 mg tablet 1 tab PO BID PRN (Reason: diarrhea) Qty: 30 RF: 0 nitrofurantoin monohyd/m-cryst [Macrobid] 100 mg capsule 100 mg PO Q12H 5 Days Qty: 10 RF: 0 potassium chloride 20 mEq tablet extended release 20 meq PO DAILY Qty: 7 RF: 0 ondansetron 4 mg tablet,disintegrating 4 mg PO Q6H PRN (Reason: nausea and vomiting) Qty: 10 RF: 0 colestipol 1 gram tablet See Rx Instructions .ROUTE .COMPLEX Qty: 120 RF: 2 Primary Care Provider: Hieu Gonzalez Referrals: Hieu Gonzalez MD [Primary Care Provider] - 3-5 Days if not improving Disposition Disposition: Home, Self Care
[2021-07-29 14:02] LABS: Absolute Lymphocyte Count 1.34 X10^3/uL (0.83-4.51); Absolute Neutrophil Count 6.3 X10^3/uL (2.0-7.7); Basophil# 0.05 X10^3/uL; Basophil% 0.6 % (0-1); Eosinophil# 0.27 X10^3/uL; Eosinophils% 3.2 % (0-5); Hematocrit 36.6 % (37-47); Hemoglobin 12.8 g/dL (12.0-15.0); Lymphocyte # 1.34 X10^3/ul (0.83-4.51); Lymphocyte % 15.8 % (19-41); Mean Corpuscular Hgb 31.1 pg (27.0-32.0); Mean Corpuscular Volume 88.8 fL (81-99); Mean Platelet Vol. 8.5 fl (6.2-12.0); Monocyte# 0.51 X10^3/uL; NRBC Flagged by Analyzer 0 % (0-5); Neutrophil # 6.29 X10^3/uL (2.7-7.7); Neutrophil % 73.9 % (47-70); Platelet Count 226 K/mm3 (150-450); RBC Distribution Width CV 13.3 % (11.6-14.6); RBC Distribution Width SD 43.6 fl (35.1-43.9); Red Blood Count 4.12 M/mm3 (4.2-5.4); White Blood Count 8.5 K/mm3 (4.4-11.0)
[2021-07-29 14:22] LABS: ALB/GLOB Ratio 1.1 RATIO (0.9-2.4); AST(SGOT) 20 U/L (15-37); Alanine Aminotransfer ALT/SGPT 33 U/L (13-56); Albumin, Serum 4.1 g/dL (3.2-5.0); Alkaline Phosphatase 73 U/L (45-117); Anion Gap 10 (5-15); BUN 15 mg/dL (7-18); BUN/Creat Ratio 17.9 RATIO (10-20); Chloride 102 mmol/L (98-107); Creatinine, Serum 0.84 mg/dL (0.55-1.02); EST Glomerular Filtration Rate 80 mL/min (>60); Est Glom Filt Rate - Afr Amer 96 mL/min (>60); Estimated Creatinine Clearance 93.04 ml/min; Globulin 3.8 g/dL (2.2-4.2); Glucose 87 mg/dL (74-106); Lipase 104 U/L (73-393); Protein, Total 7.9 g/dL (6.4-8.2); Sodium Level 136 mmol/L (136-145)
== END 2021-07-29 15:55 | disposition home or self-care (01) ==
PROVIDERS: Emergency Provider Emergency Medicine; PCP Family Medicine; Visit Provider Emergency Medicine
DX: R10.13 Epigastric pain (principal); F31.9 Bipolar disorder, unspecified; K80.20 Calculus of gallbladder without cholecystitis without obstruction; I10 Essential (primary) hypertension; K21.9 Gastro-esophageal reflux disease without esophagitis; K58.9 Irritable bowel syndrome, unspecified
CPT/HCPCS: 74177; 80053; 83690; 85025; 99283; J7040; Q9967; A4216; J3490

== ENCOUNTER 2021-09-04 07:13 | Outpatient (CLI) | payer OTHER, SELFPAY ==
--- NOTE | 2021-09-04 07:17 | US_ITS ---
STUDY: ABDOMINAL ULTRASOUND - RIGHT UPPER QUADRANT REASON FOR VISIT: Female, 40 years old liver evaluation -- FATTY LIVER TECHNIQUE: Ultrasound evaluation of the right upper quadrant was performed with real-time and static riley-scale imaging. TECHNICAL QUALITY: Adequate. COMPARISON: None. FINDINGS: Liver: The liver is enlarged measures 23.9 cm. There is increased echogenicity consistent with fatty infiltration. The bile ducts are within normal limits. There is hepatic color flow. The direction of portal flow is hepatopetal. There is no demonstrated mass lesion. Gallbladder: Normal distended gallbladder. The gallbladder wall measures 2.9 mm. There is a negative sonographic Franklin''s sign. There is no pericholecystic fluid. There are multiple echogenic structures within the gallbladder, consistent with multiple gallstones. Common Bile Duct (C.B.D.): The common bile duct measures 5.8 mm. Pancreas: Normal size of the head, body and tail of the pancreas. There is increased echogenicity of the pancreas. There is no demonstrated pancreatic mass or cyst. Right Kidney: Normal size of the right kidney. The right kidney measures 13.2 cm x 6.2 cm x 5.6 cm. Normal renal cortex. The right cortex measures 1.0 cm. There is no demonstrated renal mass or cyst. There is no right hydronephrosis. Possible 2 mm calculus in the right kidney. IMPRESSION: Hepatomegaly and diffuse fatty infiltration of the liver. Multiple gallstones. Electronically Signed: Stepan Birmingham MD at 9:01 EDT , STUDY: ABDOMINAL ULTRASOUND - ELASTOGRAPHY REASON FOR VISIT: Female, 40 years old. Hepatomegaly and fatty infiltration of the liver. TECHNIQUE: Liver stiffness measurements were obtained on a [employer] 85 ultrasound machine using a CA 1-7 probe following the SRU guidelines. 3 measurements were obtained using a 2-D-SWE method. The IQR/M was 23% suggesting a quality data set. TECHNICAL QUALITY: Adequate. COMPARISON: Comparison is made with prior study done earlier today. FINDINGS: Liver: There is evidence of hepatomegaly and fatty infiltration of the liver. Median liver stiffness measured 7.2 kPa. US/Elastography Parenchyma/Organ IMPRESSION: Liver stiffness measures 7.2 kPa compatible with F2-F3 (Mild to moderate liver fibrosis) Metavir score. Electronically Signed: Stepan Birmingham MD at 9:11 EDT ,
--- NOTE | 2021-09-04 07:17 | US_ITS ---
STUDY: ABDOMINAL ULTRASOUND - RIGHT UPPER QUADRANT REASON FOR VISIT: Female, 40 years old liver evaluation -- FATTY LIVER TECHNIQUE: Ultrasound evaluation of the right upper quadrant was performed with real-time and static riley-scale imaging. TECHNICAL QUALITY: Adequate. COMPARISON: None. FINDINGS: Liver: The liver is enlarged measures 23.9 cm. There is increased echogenicity consistent with fatty infiltration. The bile ducts are within normal limits. There is hepatic color flow. The direction of portal flow is hepatopetal. There is no demonstrated mass lesion. Gallbladder: Normal distended gallbladder. The gallbladder wall measures 2.9 mm. There is a negative sonographic Franklin''s sign. There is no pericholecystic fluid. There are multiple echogenic structures within the gallbladder, consistent with multiple gallstones. Common Bile Duct (C.B.D.): The common bile duct measures 5.8 mm. Pancreas: Normal size of the head, body and tail of the pancreas. There is increased echogenicity of the pancreas. There is no demonstrated pancreatic mass or cyst. Right Kidney: Normal size of the right kidney. The right kidney measures 13.2 cm x 6.2 cm x 5.6 cm. Normal renal cortex. The right cortex measures 1.0 cm. There is no demonstrated renal mass or cyst. There is no right hydronephrosis. Possible 2 mm calculus in the right kidney. IMPRESSION: Hepatomegaly and diffuse fatty infiltration of the liver. Multiple gallstones. Electronically Signed: Stepan Birmingham MD at 9:01 EDT , STUDY: ABDOMINAL ULTRASOUND - ELASTOGRAPHY REASON FOR VISIT: Female, 40 years old. Hepatomegaly and fatty infiltration of the liver. TECHNIQUE: Liver stiffness measurements were obtained on a [employer] 85 ultrasound machine using a CA 1-7 probe following the SRU guidelines. 3 measurements were obtained using a 2-D-SWE method. The IQR/M was 23% suggesting a quality data set. TECHNICAL QUALITY: Adequate. COMPARISON: Comparison is made with prior study done earlier today. FINDINGS: Liver: There is evidence of hepatomegaly and fatty infiltration of the liver. Median liver stiffness measured 7.2 kPa. US/Abdomen Limited IMPRESSION: Liver stiffness measures 7.2 kPa compatible with F2-F3 (Mild to moderate liver fibrosis) Metavir score. Electronically Signed: Stepan Birmingham MD at 9:11 EDT ,
== END 2021-09-04 23:59 | disposition home or self-care (01) ==
LOC: US 07:16
PROVIDERS: PCP Family Medicine; Referring Provider Internal Medicine Gastroenterology; Visit Provider Internal Medicine Gastroenterology
DX: K76.0 Fatty (change of) liver, not elsewhere classified (principal)
CPT/HCPCS: 76705; 76981

== ENCOUNTER 2021-09-14 15:29 | Outpatient (CLI) | payer OTHER, SELFPAY ==
[2021-09-14 18:17] LABS: Anion Gap 9 (5-15); BUN 12 mg/dL (7-18); BUN/Creat Ratio 13.4 RATIO (10-20); Chloride 101 mmol/L (98-107); Creatinine, Serum 0.89 mg/dL (0.55-1.02); EST Glomerular Filtration Rate 74 mL/min (>60); Est Glom Filt Rate - Afr Amer 90 mL/min (>60); Glucose 87 mg/dL (74-106); Potassium 3.3 mmol/L (3.5-5.1); Sodium Level 133 mmol/L (136-145); Thyroid Stim Hormone (TSH) 3.29 uIU/mL (0.358-3.74)
== END 2021-09-14 23:59 | disposition home or self-care (01) ==
LOC: MTLAB 15:30
PROVIDERS: PCP Family Medicine; Referring Provider Psychiatry & Neurology Psychiatry; Visit Provider Psychiatry & Neurology Psychiatry
DX: Z51.81 Encounter for therapeutic drug level monitoring (principal); Z79.899 Other long term (current) drug therapy
CPT/HCPCS: 36415; 80048; 80178; 84443

== ENCOUNTER → 2021-10-02 | Outpatient (CLI) | payer OTHER, SELFPAY ==
[2021-10-02 15:41] LABS: Anion Gap 7 (5-15); BUN 12 mg/dL (7-18); BUN/Creat Ratio 13.8 RATIO (10-20); Calcium,Total 9.4 mg/dL (8.5-10.1); Chloride 104 mmol/L (98-107); Creatinine, Serum 0.87 mg/dL (0.55-1.02); EST Glomerular Filtration Rate 77 mL/min (>60); Est Glom Filt Rate - Afr Amer 93 mL/min (>60); Glucose 84 mg/dL (74-106); Potassium 3.5 mmol/L (3.5-5.1); Sodium Level 134 mmol/L (136-145)
== END | disposition home or self-care (01) ==
LOC: MTLAB 13:34
PROVIDERS: PCP Family Medicine; Referring Provider Family Medicine; Visit Provider Family Medicine
DX: E87.1 Hypo-osmolality and hyponatremia (principal); E87.6 Hypokalemia
CPT/HCPCS: 36415; 80048; 80178

== ENCOUNTER → 2021-11-23 | Outpatient (CLI) | payer OTHER, SELFPAY ==
[2021-11-23 17:19] LABS: Hematocrit 34.5 % (37-47); Hemoglobin 11.7 g/dL (12.0-15.0); Mean Corp Hgb Conc 33.9 g/dL (32-36); Mean Corpuscular Hgb 28.9 pg (27.0-32.0); Mean Corpuscular Volume 85.2 fL (81-99); Mean Platelet Vol. 8.5 fl (6.2-12.0); Platelet Count 282 K/mm3 (150-450); RBC Distribution Width CV 13.8 % (11.6-14.6); RBC Distribution Width SD 42.7 fl (35.1-43.9); Red Blood Count 4.05 M/mm3 (4.2-5.4); White Blood Count 7.3 K/mm3 (4.4-11.0)
[2021-11-23 17:23] LABS: Prothrombin Time (Protime)PT. 12.5 SECONDS (11.7-14.9)
[2021-11-23 22:41] LABS: ALB/GLOB Ratio 0.9 RATIO (0.9-2.4); AST(SGOT) 14 U/L (15-37); Alanine Aminotransfer ALT/SGPT 31 U/L (13-56); Albumin, Serum 3.8 g/dL (3.2-5.0); Alkaline Phosphatase 87 U/L (45-117); Anion Gap 9 (5-15); BUN 14 mg/dL (7-18); BUN/Creat Ratio 14.3 RATIO (10-20); Calcium,Total 9.5 mg/dL (8.5-10.1); Chloride 100 mmol/L (98-107); Creatinine, Serum 0.98 mg/dL (0.55-1.02); EST Glomerular Filtration Rate 66 mL/min (>60); Est Glom Filt Rate - Afr Amer 80 mL/min (>60); Globulin 4.1 g/dL (2.2-4.2); Glucose 128 mg/dL (74-106); Potassium 3.2 mmol/L (3.5-5.1); Protein, Total 7.9 g/dL (6.4-8.2); Sodium Level 133 mmol/L (136-145)
== END | disposition home or self-care (01) ==
LOC: LAB 16:22
PROVIDERS: PCP Family Medicine; Referring Provider Internal Medicine Gastroenterology; Visit Provider Internal Medicine Gastroenterology
DX: K70.0 Alcoholic fatty liver (principal); R19.7 Diarrhea, unspecified; E03.2 Hypothyroidism due to medicaments and other exogenous substances
CPT/HCPCS: 36415; 80053; 84439; 85027; 85610

== ENCOUNTER 2021-12-13 11:12 | Emergency (ER) | payer OTHER, SELFPAY ==
[2021-12-13 11:13] VITALS: BP 127/89; PULSE 79; RESP 14; TEMP 36.4; O2SAT 98; BMI 36.1
--- NOTE | 2021-12-13 11:34 | EX.ED.DYSGE1 ---
HPI History of Present Illness Chief Complaint: Nausea/Vomiting Detail of Chief Complaint: And vomiting for 3 days Narrative Narrative: Patient presents the emergency department complaint of nausea and vomiting for last 3 days. Patient states that [place] the beach and had gotten sunburn. 3 days ago she started having vomiting and cannot keep anything down. Has not taken any of her medications in the last 3 days. Patient does not check her blood sugars although she is a type II diabetic. Patient has had diarrhea but has history of chronic diarrhea and sees GI for that. Patient feels lightheaded and dizzy with standing. She denies any fevers. She denies sick contacts. She denies urinary symptoms. She describes some upper abdominal discomfort. Prior similar symptoms: No [facility] Medical History (Updated 12/13/21 @ 14:[address] Katy Kramer, ) Alcohol abuse Alcoholic hepatitis Bipolar disorder Breast lump Diarrhea Gallstones GERD (gastroesophageal reflux disease) Hives Hypertension IBS (irritable bowel syndrome) Pneumonia Home Medications bisoprolol fumarate 10 mg tablet 10 mg PO DAILY blood pressure 02/05/19 [History Last Taken Unknown] clonazepam 2 mg tablet (Klonopin) 1 mg PO BID anxiety 02/05/19 [History Last Taken Unknown] lithium carbonate 300 mg capsule 900 mg PO QHS mental health 09/08/20 [History Last Taken Unknown] sertraline 100 mg tablet 100 mg PO DAILY depression 09/08/20 [History Last Taken Unknown] metformin 500 mg tablet 1,000 mg PO BID 03/12/21 [History Last Taken Unknown] phentermine 30 mg capsule 30 mg PO DAILY #30 caps 11/20/21 [Rx Last Taken Unknown] topiramate 50 mg tablet 100 mg PO QHS #60 tabs 11/24/21 [Rx Last Taken Unknown] amitriptyline 25 mg tablet 0.5 - 2 tab PO QHS 12/13/21 [History Last Taken Unknown] colestipol 1 gram tablet 2 g PO BID 12/13/21 [History Last Taken Unknown] levothyroxine 25 mcg tablet 25 mcg PO DAILY 12/13/21 [History Last Taken Unknown] lurasidone 80 mg tablet (Latuda) 80 mg PO DAILY 12/13/21 [History Last Taken Unknown] ondansetron 4 mg disintegrating tablet 4 mg PO Q8H PRN PRN Nausea #10 tabs 12/13/21 [Rx Last Taken Unknown] potassium chloride 20 mEq tablet,extended release 15 meq PO DAILY 12/13/21 [History Last Taken Unknown] sulfamethoxazole 800 mg-trimethoprim 160 mg tablet 1 tab PO BID #14 TABLETS 12/13/21 [Rx Last Taken Unknown] triamterene 37.5 mg-hydrochlorothiazide 25 mg tablet 1 tab PO DAILY 12/13/21 [History Last Taken Unknown] Allergy/AdvReac Type Severity Reaction Status Date / Time No Known Allergies Allergy Verified 12/13/21 11:16 Family History Father Heart disease Mother Cancer lung- smoker Surgical History delivery delivered Social History Smoking Status: Never smoker alcohol intake: current details: social substance use type: does not use caffeine: Yes what type of physical activity do you participate in: none seatbelt use: always do you feel safe at home: Yes 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 [employer] ROS ED Review of Systems ROS Unobtainable: other Constitutional Constitutional ED: Reports lethargy; Denies chills, fever(s), sweats or weight loss Eyes Eyes: Denies blurry vision, change in vision or diplopia ENT ENT ED: Denies rhinorrhea or sore throat Cardiovascular Cardiovascular: Reports chest pain and racing heartbeat; Denies orthopnea Respiratory/Chest Respiratory/Chest: Reports dyspnea and dyspnea on exertion; Denies cough, orthopnea or sputum Gastrointestinal Gastrointestinal: Reports abdominal pain, nausea and vomiting; Denies diarrhea Genitourinary Genitourinary ED: Denies dysuria, hematuria or urinary frequency Musculoskeletal Musculoskeletal: Denies arthralgias, back pain, myalgias or neck pain Integumentary Denies abscess, Abrasions or rash Neurologic Neurologic: Denies headache(s) or weakness Psychiatric Psychiatric: Denies anxiety, depression or suicidal thoughts Endocrine Endocrinology: Denies polydipsia, polyphagia or polyuria Hematologic/Lymphatic Hematologic/Lymphatic: Denies easy bleeding, easy bruising or lymphadenopathy Allergic/Immunologic Allergic/Immunologic ED: Denies mouth swelling, tongue swelling or urticaria EXAM Physical Exam Const Vital Signs: 12/13/21 11:13 12/13/21 14:12 Temperature 97.5 F L Temperature Source Temporal Pulse Rate 79 82 Respiratory Rate 14 16 Blood Pressure 127/89 H 119/78 Blood Pressure Mean 101 91 Pulse Ox 98 97 Oxygen Delivery Method Room Air Room Air Positive well nourished and well developed General Appearance ED: well developed and NAD HEENT Reports TM's clear and moist mucous membranes normocephalic and atraumatic; Negative for trauma or tenderness Tympanic Membrane ED: Yes TM's clear Eyes PERRL and EOMs intact bilaterally General Eye ED: Negative for pale conjunctiva or scleral icterus Neck no lymphadenopathy, supple and no JVD General: Negative for tenderness Chest Wall inspection of chest normal and palpation of chest normal Chest: Negative for tenderness Resp normal respiratory effort and clear to auscultation bilaterally Effort and Inspection: Negative for respiratory distress or pain with movement Auscultation: Negative for rhonchi, wheezes or diminished lung sounds Cardio regular rate, regular rhythm, S1 normal heart sound, S2 normal heart sound and no murmurs Peripheral Pulses: pulses 2+ throughout GI normal to inspection, nondistended, normoactive bowel sounds, soft to palpation, non-distended and no masses GI Narrative: Patient with some tenderness over the epigastric region with some guarding. There is no rebound, rigidity, or frail signs. Negative Franklin sign. No real tenderness over the lower abdomen. Back/Spine no CVA tenderness and no thoracic nor lumbar tenderness Extremity normal to inspection General Extremety ED: Negative for edema General Extremity: Negative for edema Neuro oriented x3, CN's II-XII intact bilaterally, no sensory deficits noted and gait normal Sensorium / Orientation: awake, alert, oriented to person, oriented to place and oriented to time Motor Exam: strength 5/5 throughout and strength abnormal Psych mental status grossly normal Skin no rashes or lesions noted and no wounds MDM MDM MDM Narrative Medical decision making narrative: IV line established on arrival. Patient was given Zofran IV. She was able to tolerate p.o. fluids. Patient was noted to have significant urinary tract infection and was given Rocephin 1 g IV. Urine culture was sent. Patient advised to return to the ER if worsening abdominal pain, fever, persistent vomiting, or condition worsen anyway. She will be treated with Bactrim and Zofran for home. Patient advised to follow-up with primary care physician 3 to 5 days. Lab Data Attestation: I reviewed the patient's lab results. Labs: Laboratory Results - last 24 hr 12/13/21 12/13/21 12/13/21 12:05 12:05 14:10 WBC 6.1 RBC 4.32 Hgb 12.0 Hct 36.8 L MCV 85.2 MCH 27.8 MCHC 32.6 RDW Std Deviation 42.9 RDW Coeff of Chet 13.7 Plt Count 222 MPV 8.3 Immature Gran % (Auto) 0.300 Neut % (Auto) 82.2 H Lymph % (Auto) 8.7 L [place] % (Auto) 6.2 Eos % (Auto) 2.1 Baso % (Auto) 0.5 Absolute Neuts (auto) 5.0 Absolute Lymphs (auto) 0.53 L Nucleated RBC % 0 Differential Comment SCANNED Sodium 133 L Potassium 2.9 L Chloride 104 Carbon Dioxide 20.0 L Anion Gap 9 BUN 27 H Creatinine 1.33 H Estim Creat Clear Calc 58.76 Est GFR (MDRD) Af Amer 57 L Est GFR (MDRD) Non-Af 47 L BUN/Creatinine Ratio 20.3 H Glucose 153 H Calcium 9.5 Total Bilirubin 0.60 AST 11 L ALT 18 Alkaline Phosphatase 196 H Total Protein 8.1 Albumin 4.1 Globulin 4.0 Albumin/Globulin Ratio 1.0 Lipase 146 Urine Color Yellow Urine Clarity Sl. Cloudy Urine pH 7.0 Ur Specific [place] 1.025 Urine Protein 100 H Urine Glucose (UA) Normal Urine Ketones 15 H Urine Occult Blood 50 H Urine Nitrite Positive H Urine Bilirubin Negative Urine Urobilinogen Normal Ur Leukocyte Esterase 500 H Urine RBC 0 SEEN Urine WBC >100 SEEN Ur Squamous Epith Cells 0 SEEN Urine Bacteria 2+ Urine Mucus 0 SEEN Discharge Plan Triage Chief Complaint: Nausea/Vomiting ED Provider: Katy Kramer Dx/Rx/DC Orders Clinical Impression: UTI (urinary tract infection), Vomiting Instructions: ED CYSTITIS Female Adult, ED Vomiting (Adult) Prescriptions: New sulfamethoxazole-trimethoprim [sulfamethoxazole-trimethoprim] 800-160 mg tablet 1 tab PO BID Qty: 14 0RF ondansetron [ondansetron] 4 mg tablet,disintegrating 4 mg PO Q8H PRN PRN (Reason: Nausea) Qty: 10 0RF No Action clonazepam [Klonopin] 2 mg tablet 1 mg PO BID bisoprolol fumarate 10 mg tablet 10 mg PO DAILY phentermine 30 mg capsule 30 mg PO DAILY Qty: 30 2RF Rx Instructions: must administer 2 hours after breakfast sertraline 100 MG tablet 100 mg PO DAILY lithium carbonate 300 MG capsule 900 mg PO QHS metformin 500 mg tablet 1,000 mg PO BID Label Comments: take 1 to 2 tablets by mouth twice a day as directed levothyroxine 25 mcg tablet 25 mcg PO DAILY amitriptyline 25 mg tablet 0.5 - 2 tab PO QHS Label Comments: take 1/2 to 2 tablets by mouth at bedtime triamterene-hydrochlorothiazid 37.5-25 mg tablet 1 tab PO DAILY Latuda 80 mg Tablet 80 mg PO DAILY Rx Instructions: must administer with food (at least 350 calories) colestipol 1 gram tablet 2 g PO BID Rx Instructions: TAKE TWO TABLETS BY MOUTH 2 TIMES A DAY potassium chloride 20 mEq tablet extended release 15 meq PO DAILY topiramate 50 mg tablet 100 mg PO QHS Qty: 60 2RF Rx Instructions: take two tabs each evening Primary Care Provider: Hieu Gonzalez Referrals: Hieu Gonzalez MD [Primary Care Provider] - 3-5 Days Disposition Disposition: Home, Self Care
[2021-12-13] MEDS: 0.9% Normal Saline 1,000 ML 1000 ML IV (12:05)
[2021-12-13] MEDS: Ondansetron 4 MG/2 ML Vial IV (12:05)
[2021-12-13 12:29] LABS: Absolute Lymphocyte Count 0.53 X10^3/uL (0.83-4.51); Basophil# 0.03 X10^3/uL; Basophil% 0.5 % (0-1); Eosinophil# 0.13 X10^3/uL; Eosinophils% 2.1 % (0-5); Hematocrit 36.8 % (37-47); Lymphocyte # 0.53 X10^3/ul (0.83-4.51); Lymphocyte % 8.7 % (19-41); Mean Corp Hgb Conc 32.6 g/dL (32-36); Mean Corpuscular Hgb 27.8 pg (27.0-32.0); Mean Corpuscular Volume 85.2 fL (81-99); Mean Platelet Vol. 8.3 fl (6.2-12.0); Monocyte# 0.38 X10^3/uL; Monocyte% 6.2 % (0-10); NRBC Flagged by Analyzer 0 % (0-5); Neutrophil # 5.02 X10^3/uL (2.7-7.7); Neutrophil % 82.2 % (47-70); POSITIVE DIFFERENTIAL YES; Platelet Count 222 K/mm3 (150-450); RBC Distribution Width CV 13.7 % (11.6-14.6); RBC Distribution Width SD 42.9 fl (35.1-43.9); Red Blood Count 4.32 M/mm3 (4.2-5.4); White Blood Count 6.1 K/mm3 (4.4-11.0)
[2021-12-13 12:32] LABS: Differential Indicated SCAN CRITERIA MET
[2021-12-13 12:41] LABS: AST(SGOT) 11 U/L (15-37); Alanine Aminotransfer ALT/SGPT 18 U/L (13-56); Albumin, Serum 4.1 g/dL (3.2-5.0); Alkaline Phosphatase 196 U/L (45-117); Anion Gap 9 (5-15); BUN 27 mg/dL (7-18); BUN/Creat Ratio 20.3 RATIO (10-20); Calcium,Total 9.5 mg/dL (8.5-10.1); Chloride 104 mmol/L (98-107); Creatinine, Serum 1.33 mg/dL (0.55-1.02); EST Glomerular Filtration Rate 47 mL/min (>60); Est Glom Filt Rate - Afr Amer 57 mL/min (>60); Estimated Creatinine Clearance 58.76 ml/min; Glucose 153 mg/dL (74-106); Lipase 146 U/L (73-393); Potassium 2.9 mmol/L (3.5-5.1); Protein, Total 8.1 g/dL (6.4-8.2); Sodium Level 133 mmol/L (136-145)
[2021-12-13 12:50] LABS: Differential Comment SCANNED
[2021-12-13] MEDS: Potassium Chloride Oral Tablet 20 MEQ 40 MEQ PO (13:35)
[2021-12-13 14:12] VITALS: BP 119/78; PULSE 82; RESP 16; O2SAT 97
[2021-12-13 14:17] LABS: Mucous, Urine 0 SEEN /hpf (<or=2+); Red Blood Cells-Urine 0 SEEN /hpf (0-5); Squamous Epithelial Cells - UA 0 SEEN /hpf (5-10)
[2021-12-13 14:22] LABS: Color, Urine Yellow (Yellow); Glucose, Dipstick Normal (Normal); Ketone-Dipstick 15 mg/dl (Negative); Leukocyte Esterase-Dipstick 500 /ul (Negative); Nitrite-Dipstick Positive (Negative); Occult Blood-Urine 50 /ul (Negative); Protein-Dipstick 100 mg/dl (Negative); Specific Gravity, Urine 1.025 (1.002-1.030); Urine Bilirubin Dipstick Negative (Negative); Urine Clarity Sl. Cloudy (Clear); Urine Urobilinogen Normal (Normal)
[2021-12-13 14:31] LABS: Bacteria 2+ /hpf (None Seen); White Blood Cells >100 SEEN /hpf (0-5)
[2021-12-13] MEDS: Ceftriaxone 1 GM/50 ML BAG IV (14:56)
== END 2021-12-13 15:22 | disposition home or self-care (01) ==
PROVIDERS: Emergency Provider Emergency Medicine; PCP Family Medicine; Visit Provider Emergency Medicine
DX: N39.0 Urinary tract infection, site not specified (principal); E11.9 Type 2 diabetes mellitus without complications; I10 Essential (primary) hypertension; R19.7 Diarrhea, unspecified; R11.2 Nausea with vomiting, unspecified
CPT/HCPCS: 80053; 81001; 83690; 85025; 87086; 87088; 96361; 96365; 96375; 99283; J7030; J7050; A4216; J2405

== ENCOUNTER → 2021-12-18 | Outpatient (CLI) | payer OTHER, SELFPAY ==
[2021-12-18 12:35] LABS: Absolute Lymphocyte Count 1.16 X10^3/uL (0.83-4.51); Absolute Neutrophil Count 5.7 X10^3/uL (2.0-7.7); Basophil# 0.06 X10^3/uL; Basophil% 0.8 % (0-1); Eosinophil# 0.32 X10^3/uL; Eosinophils% 4.1 % (0-5); Hematocrit 33.9 % (37-47); Hemoglobin 11.3 g/dL (12.0-15.0); Lymphocyte # 1.16 X10^3/ul (0.83-4.51); Lymphocyte % 14.9 % (19-41); Mean Corp Hgb Conc 33.3 g/dL (32-36); Mean Corpuscular Hgb 28.8 pg (27.0-32.0); Mean Corpuscular Volume 86.3 fL (81-99); Mean Platelet Vol. 9.2 fl (6.2-12.0); Monocyte# 0.45 X10^3/uL; Monocyte% 5.8 % (0-10); NRBC Flagged by Analyzer 0 % (0-5); Neutrophil # 5.69 X10^3/uL (2.7-7.7); Neutrophil % 73.4 % (47-70); Platelet Count 249 K/mm3 (150-450); RBC Distribution Width SD 44.5 fl (35.1-43.9); Red Blood Count 3.93 M/mm3 (4.2-5.4); White Blood Count 7.8 K/mm3 (4.4-11.0)
[2021-12-18 13:03] LABS: ALB/GLOB Ratio 1.1 RATIO (0.9-2.4); AST(SGOT) 13 U/L (15-37); Alanine Aminotransfer ALT/SGPT 20 U/L (13-56); Albumin, Serum 3.9 g/dL (3.2-5.0); Alkaline Phosphatase 169 U/L (45-117); Anion Gap 5 (5-15); BUN 25 mg/dL (7-18); BUN/Creat Ratio 13.4 RATIO (10-20); Calcium,Total 9.4 mg/dL (8.5-10.1); Chloride 102 mmol/L (98-107); Creatinine, Serum 1.86 mg/dL (0.55-1.02); EST Glomerular Filtration Rate 32 mL/min (>60); Est Glom Filt Rate - Afr Amer 38 mL/min (>60); Globulin 3.7 g/dL (2.2-4.2); Glucose 92 mg/dL (74-106); Magnesium 2.5 mg/dL (1.6-2.6); Potassium 3.7 mmol/L (3.5-5.1); Protein, Total 7.6 g/dL (6.4-8.2); Sodium Level 133 mmol/L (136-145); T4 Free Direct 0.88 ng/dL (0.76-1.46); Thyroid Stim Hormone (TSH) 1.95 uIU/mL (0.358-3.74)
== END | disposition home or self-care (01) ==
LOC: MFPLAB 11:04
PROVIDERS: PCP Family Medicine; Visit Provider Family Medicine
DX: R53.81 Other malaise (principal); R53.83 Other fatigue; E03.2 Hypothyroidism due to medicaments and other exogenous substances; E87.6 Hypokalemia
CPT/HCPCS: 36415; 80053; 80178; 83735; 84439; 84443; 85025

== ENCOUNTER → 2021-12-21 | Outpatient (CLI) | payer OTHER, SELFPAY ==
[2021-12-21 18:01] LABS: Anion Gap 10 (5-15); BUN 13 mg/dL (7-18); BUN/Creat Ratio 9.9 RATIO (10-20); Calcium,Total 9.9 mg/dL (8.5-10.1); Chloride 103 mmol/L (98-107); Creatinine, Serum 1.31 mg/dL (0.55-1.02); EST Glomerular Filtration Rate 48 mL/min (>60); Est Glom Filt Rate - Afr Amer 58 mL/min (>60); Glucose 104 mg/dL (74-106); Potassium 3.5 mmol/L (3.5-5.1); Sodium Level 136 mmol/L (136-145)
== END | disposition home or self-care (01) ==
LOC: MTLAB 16:22
PROVIDERS: PCP Family Medicine; Referring Provider Psychiatry & Neurology Psychiatry; Visit Provider Family Medicine
DX: T56.891A Toxic effect of other metals, accidental (unintentional), initial encounter (principal)
CPT/HCPCS: 36415; 80048; 80178

== ENCOUNTER → 2021-12-25 | Outpatient (CLI) | payer OTHER, SELFPAY ==
[2021-12-25 10:33] LABS: Lithium < 0.20 mmol/L (0.60-1.20)
[2021-12-25 10:45] LABS: ALB/GLOB Ratio 1.2 RATIO (0.9-2.4); AST(SGOT) 17 U/L (15-37); Alanine Aminotransfer ALT/SGPT 31 U/L (13-56); Alkaline Phosphatase 131 U/L (45-117); Anion Gap 9 (5-15); BUN 8 mg/dL (7-18); BUN/Creat Ratio 6.8 RATIO (10-20); Calcium,Total 9.5 mg/dL (8.5-10.1); Chloride 109 mmol/L (98-107); Creatinine, Serum 1.17 mg/dL (0.55-1.02); EST Glomerular Filtration Rate 54 mL/min (>60); Est Glom Filt Rate - Afr Amer 66 mL/min (>60); Globulin 3.4 g/dL (2.2-4.2); Glucose 117 mg/dL (74-106); Potassium 3.2 mmol/L (3.5-5.1); Protein, Total 7.4 g/dL (6.4-8.2); Sodium Level 140 mmol/L (136-145)
== END | disposition home or self-care (01) ==
LOC: MTLAB 07:29
PROVIDERS: PCP Family Medicine; Referring Provider Family Medicine; Visit Provider Family Medicine
DX: Z51.81 Encounter for therapeutic drug level monitoring (principal); N17.9 Acute kidney failure, unspecified; Z79.899 Other long term (current) drug therapy
CPT/HCPCS: 36415; 80053; 80178

== ENCOUNTER → 2021-12-30 | Outpatient (CLI) | payer OTHER, SELFPAY ==
[2021-12-30 10:02] LABS: Hemoglobin 11.2 g/dL (12.0-15.0); Mean Corpuscular Hgb 28.6 pg (27.0-32.0); Mean Corpuscular Volume 89.5 fL (81-99); Mean Platelet Vol. 8.8 fl (6.2-12.0); Platelet Count 244 K/mm3 (150-450); RBC Distribution Width CV 14.4 % (11.6-14.6); RBC Distribution Width SD 46.2 fl (35.1-43.9); Red Blood Count 3.91 M/mm3 (4.2-5.4); White Blood Count 2.9 K/mm3 (4.4-11.0)
[2021-12-30 10:18] LABS: AST(SGOT) 26 U/L (15-37); Alanine Aminotransfer ALT/SGPT 40 U/L (13-56); Albumin, Serum 3.7 g/dL (3.2-5.0); Alkaline Phosphatase 109 U/L (45-117); Anion Gap 8 (5-15); BUN 8 mg/dL (7-18); BUN/Creat Ratio 7.1 RATIO (10-20); Calcium,Total 9.4 mg/dL (8.5-10.1); Chloride 109 mmol/L (98-107); Creatinine, Serum 1.13 mg/dL (0.55-1.02); EST Glomerular Filtration Rate 56 mL/min (>60); Est Glom Filt Rate - Afr Amer 68 mL/min (>60); Globulin 3.6 g/dL (2.2-4.2); Glucose 112 mg/dL (74-106); Potassium 3.6 mmol/L (3.5-5.1); Protein, Total 7.3 g/dL (6.4-8.2); Sodium Level 140 mmol/L (136-145)
== END | disposition home or self-care (01) ==
PROVIDERS: PCP Family Medicine; Referring Provider Psychiatry & Neurology Psychiatry; Visit Provider Psychiatry & Neurology Psychiatry
DX: N17.9 Acute kidney failure, unspecified (principal)
CPT/HCPCS: 36415; 80053; 85027

== ENCOUNTER → 2022-01-29 | Outpatient (CLI) | payer OTHER, SELFPAY ==
[2022-01-29 15:08] LABS: Absolute Lymphocyte Count 1.42 X10^3/uL (0.83-4.51); Absolute Neutrophil Count 3.5 X10^3/uL (2.0-7.7); Basophil# 0.04 X10^3/uL; Basophil% 0.7 % (0-1); Eosinophil# 0.12 X10^3/uL; Eosinophils% 2.2 % (0-5); Hematocrit 35.9 % (37-47); Hemoglobin 11.3 g/dL (12.0-15.0); Lymphocyte # 1.42 X10^3/ul (0.83-4.51); Lymphocyte % 25.7 % (19-41); Mean Corp Hgb Conc 31.5 g/dL (32-36); Mean Corpuscular Hgb 26.8 pg (27.0-32.0); Mean Corpuscular Volume 85.1 fL (81-99); Mean Platelet Vol. 8.7 fl (6.2-12.0); Monocyte# 0.46 X10^3/uL; Monocyte% 8.3 % (0-10); NRBC Flagged by Analyzer 0 % (0-5); Neutrophil # 3.47 X10^3/uL (2.7-7.7); Neutrophil % 62.7 % (47-70); Platelet Count 253 K/mm3 (150-450); RBC Distribution Width CV 13.2 % (11.6-14.6); RBC Distribution Width SD 40.8 fl (35.1-43.9); Red Blood Count 4.22 M/mm3 (4.2-5.4); White Blood Count 5.5 K/mm3 (4.4-11.0)
[2022-01-29 15:18] LABS: ALB/GLOB Ratio 0.8 RATIO (0.9-2.4); AST(SGOT) 27 U/L (15-37); Alanine Aminotransfer ALT/SGPT 42 U/L (13-56); Albumin, Serum 3.6 g/dL (3.2-5.0); Alkaline Phosphatase 144 U/L (45-117); Anion Gap 7 (5-15); BUN 11 mg/dL (7-18); BUN/Creat Ratio 9.4 RATIO (10-20); Calcium,Total 9.5 mg/dL (8.5-10.1); Chloride 108 mmol/L (98-107); Creatinine, Serum 1.17 mg/dL (0.55-1.02); EST Glomerular Filtration Rate 54 mL/min (>60); Est Glom Filt Rate - Afr Amer 66 mL/min (>60); Globulin 4.5 g/dL (2.2-4.2); Glucose 91 mg/dL (74-106); Magnesium 2.2 mg/dL (1.6-2.6); Potassium 3.8 mmol/L (3.5-5.1); Protein, Total 8.1 g/dL (6.4-8.2); Sodium Level 138 mmol/L (136-145)
== END | disposition home or self-care (01) ==
LOC: MTLAB 13:21
PROVIDERS: PCP Family Medicine; Referring Provider Family Medicine; Visit Provider Family Medicine
DX: E13.9 Other specified diabetes mellitus without complications (principal); F10.11 Alcohol abuse, in remission
CPT/HCPCS: 36415; 80053; 83735; 85025

== ENCOUNTER → 2022-07-27 | Outpatient (CLI) | payer OTHER, SELFPAY ==
[2022-07-27 10:08] LABS: Absolute Lymphocyte Count 1.49 X10^3/uL (0.83-4.51); Absolute Neutrophil Count 3.5 X10^3/uL (2.0-7.7); Basophil# 0.03 X10^3/uL; Basophil% 0.5 % (0-1); Eosinophils% 1.8 % (0-5); Hematocrit 35.9 % (37-47); Hemoglobin 11.7 g/dL (12.0-15.0); Lymphocyte # 1.49 X10^3/ul (0.83-4.51); Lymphocyte % 26.4 % (19-41); Mean Corp Hgb Conc 32.6 g/dL (32-36); Mean Corpuscular Hgb 23.9 pg (27.0-32.0); Mean Corpuscular Volume 73.4 fL (81-99); Mean Platelet Vol. 8.9 fl (6.2-12.0); Monocyte# 0.47 X10^3/uL; Monocyte% 8.3 % (0-10); NRBC Flagged by Analyzer 0 % (0-5); Neutrophil # 3.53 X10^3/uL (2.7-7.7); Neutrophil % 62.5 % (47-70); Platelet Count 261 K/mm3 (150-450); RBC Distribution Width CV 15.2 % (11.6-14.6); RBC Distribution Width SD 39.4 fl (35.1-43.9); Red Blood Count 4.89 M/mm3 (4.2-5.4); White Blood Count 5.7 K/mm3 (4.4-11.0)
[2022-07-27 10:26] LABS: Vitamin B12 331 pg/mL (211-911)
[2022-07-27 10:37] LABS: ALB/GLOB Ratio 0.7 RATIO (0.9-2.4); AST(SGOT) 15 U/L (15-37); Alanine Aminotransfer ALT/SGPT 25 U/L (13-56); Albumin, Serum 3.3 g/dL (3.2-5.0); Alkaline Phosphatase 119 U/L (45-117); Anion Gap 7 (5-15); BUN 20 mg/dL (7-18); Bilirubin, Direct 0.12 mg/dL (0.00-0.30); Calcium,Total 9.4 mg/dL (8.5-10.1); Chloride 104 mmol/L (98-107); EST Glomerular Filtration Rate 65 mL/min (>60); Est Glom Filt Rate - Afr Amer 78 mL/min (>60); GGTP 129 U/L (5-55); Glucose 152 mg/dL (74-106); Magnesium 2.1 mg/dL (1.6-2.6); Potassium 4.1 mmol/L (3.5-5.1); Protein, Total 8.3 g/dL (6.4-8.2); Sodium Level 135 mmol/L (136-145); T4 Free Direct 0.88 ng/dL (0.76-1.46)
== END | disposition home or self-care (01) ==
LOC: MTLAB 09:05
PROVIDERS: PCP Family Medicine; Referring Provider Family Medicine; Visit Provider Family Medicine
DX: E87.6 Hypokalemia (principal); F31.81 Bipolar II disorder; E03.9 Hypothyroidism, unspecified; K76.0 Fatty (change of) liver, not elsewhere classified; R20.2 Paresthesia of skin; K59.1 Functional diarrhea
CPT/HCPCS: 36415; 80053; 82248; 82607; 82746; 82977; 83735; 84439; 84443; 85025

== ENCOUNTER → 2022-09-03 | Outpatient (CLI) | payer OTHER, SELFPAY ==
[2022-09-03 10:05] LABS: Absolute Lymphocyte Count 1.18 X10^3/uL (0.83-4.51); Absolute Neutrophil Count 2.3 X10^3/uL (2.0-7.7); Basophil# 0.04 X10^3/uL; Eosinophil# 0.12 X10^3/uL; Hematocrit 38.3 % (37-47); Hemoglobin 11.8 g/dL (12.0-15.0); Lymphocyte # 1.18 X10^3/ul (0.83-4.51); Lymphocyte % 29.7 % (19-41); Mean Corp Hgb Conc 30.8 g/dL (32-36); Mean Corpuscular Hgb 22.3 pg (27.0-32.0); Mean Corpuscular Volume 72.4 fL (81-99); Mean Platelet Vol. 8.1 fl (6.2-12.0); Monocyte% 7.6 % (0-10); NRBC Flagged by Analyzer 0 % (0-5); Neutrophil # 2.31 X10^3/uL (2.7-7.7); Neutrophil % 58.2 % (47-70); Platelet Count 198 K/mm3 (150-450); RBC Distribution Width CV 15.2 % (11.6-14.6); RBC Distribution Width SD 39.3 fl (35.1-43.9); Red Blood Count 5.29 M/mm3 (4.2-5.4)
[2022-09-03 10:41] LABS: ALB/GLOB Ratio 0.7 RATIO (0.9-2.4); AST(SGOT) 56 U/L (15-37); Alanine Aminotransfer ALT/SGPT 77 U/L (13-56); Albumin, Serum 3.6 g/dL (3.2-5.0); Alkaline Phosphatase 177 U/L (45-117); Anion Gap 8 (5-15); BUN 11 mg/dL (7-18); BUN/Creat Ratio 11.4 RATIO (10-20); Calcium,Total 9.5 mg/dL (8.5-10.1); Chloride 107 mmol/L (98-107); Creatinine, Serum 0.96 mg/dL (0.55-1.02); EST Glomerular Filtration Rate 68 mL/min (>60); Est Glom Filt Rate - Afr Amer 82 mL/min (>60); Globulin 4.9 g/dL (2.2-4.2); Glucose 103 mg/dL (74-106); Lipase 130 U/L (73-393); Magnesium 2.1 mg/dL (1.6-2.6); Potassium 4.1 mmol/L (3.5-5.1); Protein, Total 8.5 g/dL (6.4-8.2); Sodium Level 137 mmol/L (136-145)
== END | disposition home or self-care (01) ==
LOC: MTLAB 09:17
PROVIDERS: PCP Family Medicine; Referring Provider Family Medicine; Visit Provider Family Medicine
DX: K52.9 Noninfective gastroenteritis and colitis, unspecified (principal); R10.11 Right upper quadrant pain
CPT/HCPCS: 36415; 80053; 83690; 83735; 85025; 86140

== ENCOUNTER → 2022-09-03 | Outpatient (CLI) | payer OTHER, SELFPAY ==
--- NOTE | 2022-09-03 10:22 | US_ITS ---
STUDY: ABDOMINAL ULTRASOUND - RIGHT UPPER QUADRANT REASON FOR VISIT: Female, 41 years old RUQ PAIN TECHNIQUE: Ultrasound evaluation of the right upper quadrant was performed with real-time and static riley-scale imaging. TECHNICAL QUALITY: Adequate. COMPARISON: None. FINDINGS: Liver: The liver is enlarged and measures 19.5 cm. There is normal echogenicity of the liver. The bile ducts are within normal limits. There is hepatic color flow. The direction of portal flow is hepatopetal. There is no demonstrated mass lesion. Gallbladder: There is a distended gallbladder. The gallbladder wall measures 3 mm. There is a positive sonographic Franklin''s sign. There is no pericholecystic fluid. There are multiple echogenic structures within the gallbladder, consistent with multiple gallstones. Common Bile Duct (C.B.D.): The common bile duct measures 7 mm. Pancreas: Normal size of the head, body and tail of the pancreas. There is normal echogenicity of the pancreas. There is no demonstrated pancreatic mass or cyst. Right Kidney: Normal size of the right kidney. The right kidney measures 11.9 cm x 6.6 cm x 5.6 cm. Normal renal cortex. The right cortex measures 2.0 cm. There is no demonstrated renal mass or cyst. There is no right hydronephrosis. US/Abdomen Limited IMPRESSION: Hepatomegaly. Multiple gallstones. Distended gallbladder. Mild dilatation of the common bile duct. Electronically Signed: Stepan Birmingham MD at 11:03 EDT ,
== END | disposition home or self-care (01) ==
LOC: US 10:09
PROVIDERS: PCP Family Medicine; Visit Provider Family Medicine
DX: K80.20 Calculus of gallbladder without cholecystitis without obstruction (principal); R16.0 Hepatomegaly, not elsewhere classified; R10.11 Right upper quadrant pain
CPT/HCPCS: 76705

== ENCOUNTER 2022-09-15 11:56 | Day surgery (SDC) | payer OTHER, SELFPAY ==
[2022-09-15] VITALS (10 sets, daily range): BP systolic 118–150; BP diastolic 73–103; PULSE 89–105; RESP 12–20; TEMP 36–36.9; O2SAT 18–98; BMI 33.2
[2022-09-15 12:39] LABS: Internal QC Validated? YES +Cl - CLEAR BKGD; Pregnancy, Urine Negative Negative
[2022-09-15] MEDS: Lactated Ringers 1,000 ML 15 ML IV ×2 (12:47→13:50)
--- NOTE | 2022-09-15 12:53 | HP.PCM_ITS ---
History and Physical Date of Admission: 09/15/22 Intake Intake Visit Reasons:?gallbladder Chief Complaint: gallbladder Roving Weight Gauger Required: No Is patient in pain?: Yes (right upper quadrant of abdomen) Allergies No Known Allergies Allergy (Verified 09/07/22 14:43) Medications ondansetron 4 mg disintegrating tablet 4 mg PO Q8H PRN PRN Nausea #10 tabs 12/13/21 [Rx Confirmed 09/07/22] potassium chloride 20 mEq tablet,extended release 15 meq PO DAILY 12/13/21 [History Confirmed 09/07/22] levothyroxine 25 mcg tablet 50 mcg PO DAILY 07/06/22 [History Confirmed 09/07/22] naltrexone 50 mg tablet 50 mg PO DAILY #30 tabs 07/06/22 [Rx Confirmed 09/07/22] sertraline 100 mg tablet 200 mg PO DAILY depression #60 tabs 07/06/22 [Rx Confirmed 09/07/22] lurasidone 120 mg tablet 120 mg PO DAILY #30 tabs 07/21/22 [Rx Confirmed 09/07/22] phentermine 37.5 mg capsule 37.5 mg PO DAILY #30 caps 08/11/22 [Rx Confirmed 09/07/22] colestipol 1 gram tablet See Rx Instructions .Route .COMPLEX #120 TABLETS 08/17/22 [Rx Confirmed 09/07/22] metformin 500 mg tablet tablet PO 08/19/22 [History Confirmed 09/07/22] trazodone 50 mg tablet 50 mg PO QHS PRN insomnia #30 tabs 08/19/22 [Rx Confirmed 09/07/22] amlodipine 5 mg tablet 5 mg PO 09/07/22 [History Confirmed 09/07/22] clonazepam 1 mg tablet 2 mg PO DAILY anxiety 09/07/22 [History] famotidine 40 mg tablet 40 mg PO 09/07/22 [History Confirmed 09/07/22] PFSH Medical History? Alcohol abuse Alcoholic hepatitis Bipolar 1 disorder Breast lump Diarrhea Gallstones GERD (gastroesophageal reflux disease) Hives Hypertension IBS (irritable bowel syndrome) Insomnia Pneumonia Surgical History? delivery delivered Family History? Father Heart diseaseMother Cancer ?? ? lung- smoker Social History? Smoking Status:? Never smoker alcohol intake:? current details:? social substance use type:? does not use caffeine:? Yes what type of physical activity do you participate in:? none seatbelt use:? always do you feel safe at home:? 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 She reports that since her stomach bug a few weeks ago she has been having right upper quadrant pain.? She has no nausea or vomiting.? She denies any fevers or chills. ROS General General: Yes weight change and fatigue; No appetite, colon cancer, breast cancer or weakness HEENT HEENT: No difficulty swallowing, eye injury, eye surgery, swollen glands or hoarseness Endo Endocrine: No thyroid disease, diabetes mellitus, thyroid cancer, Hair loss, heat intolerance or cold intolerance Skin Skin: No rash or changing moles Breast Breast: No left breast lump, right breast lump, nipple discharge, breast pain, abnormal mammogram, abnormal US or breast enlargement Musc Musculoskeletal: No back problems, arthritis, rheumatoid arthritis, gout or joint pain Cardio Cardiovascular: Yes high blood pressure; No murmur, pacemaker, heart disease, atrial fibrillation, heart attack, heart stent, palpitations, shortness of breat with exertion or chest pain Psych Psychiatric: Yes anxiety; No depression or hearing voices Resp Respiratory: No shortness of breath, No sleep apnea, No cough, No COPD, No asthma, No emphysema and No wheezing Gastro Gastrointestinal: Yes abdominal pain, Yes nausea or vomiting, Yes diarrhea, No constipation, No blood in stool, No acid reflux, No hemorrhoids, No ulcers, Yes gallbladder problem and No black,tarry stools Venkat Hematologic: No blood thinners, No blood disorders, No bleeding, No anemia and No blood clots Neuro Neurologic: No system reviewed and no additional complaints, except as documented, No as per HPI, No abnormal gait, No abnormal hearing, No abnormal movements, No abnormal speech, No behavioral changes, No burning sensations, No confusion, No convulsions, No disequilibrium, No dizziness, No localized weakness, No frequent falls, No headache(s), No lack of coordination, No loss of vision, No memory loss, Yes numbness, No other visual disturbances, No radicular pain, No restless legs, No sensory deficit, No syncope, Yes tingling, No trem or(s), No weakness and No other Exam Const General: cooperative Orientation: alert and oriented x3 HENMT Head: normal to inspection Neck Neck: normal visual inspection and full ROM Chest Chest palpation & inspection: normal inspection of the chest Resp Effort & Inspection: normal respiratory effort Auscultation: clear to auscultation bilaterally Cardio Rate: regular rate Rhythm: regular rhythm GI Inspection: non-distended Palpation: soft and tender in the RUQ Skin General: no rashes or lesions noted Neuro General: patient alert and patient oriented x3 Extrem General: full ROM Psych Appearance: grossly normal Mental Status: mental status grossly normal Assessment and Plan Assessment and Plan (1) Cholelithiasis: ?Status:?Acute ?Qualifiers: ?Cholelithiasis location:?gallbladder??Cholecystitis presence:?without cholecystitis??Biliary obstruction:?without biliary obstruction? Qualified Code(s):?K80.20 - Calculus of gallbladder without cholecystitis without obstruction ?Plan: The patient had an ultrasound which shows cholelithiasis.? She is having right upper quadrant pain.? I recommended laparoscopic cholecystectomy.? I discussed the procedure in detail with the patient.? I discussed the risks, benefits, and alternatives of the procedure.? I discussed the risks including but not limited to bleeding, infection, injury to surrounding organs such as the liver, bile duct, bowels.? I did discuss the possibility of having to convert to an open procedure as well as the possibility that if any injuries occurred this may necessitate further surgery at a tertiary care center. Wild Null MD Pager: [facility] [address] [place] [address], [address] [place] [address] Office: I reexamined the patient. The patient was seen yesterday ophthalmology. She says she is having some spots in her right eye. I talked to the pharmacy account director and he said that she has central retinal vein occlusion on that side. He said this is rare and she may have a clotting disorder. I do not believe that would affect if we are doing the surgery but she should follow-up with her PCP to get a work-up for hypercoagulable status. Wild Null MD Pager: [facility] [address] [place] [address], [address] [place] [address] Office:
[2022-09-15 13:05] LABS: Bedside Glucose 78 mg/dL (74-106)
[2022-09-15] MEDS: Cefotetan 2 GM in 0.9% NS 100 ML IV (13:14)
[2022-09-15] MEDS: Bupivacaine 0.25% 30 ML Vial (13:20)
--- NOTE | 2022-09-15 14:05 | GALL_PTH ---
PATIENT: MARIIA DAVIDSON [place] [facility] [id number] AGE/SX: 41/F ROOM: RE09/15/[address]: Dr. Wild Null MD : 1980 BED: DIS: 09/15/2022 SPEC #: [id number] RECD: 09/15/22 16:41 STATUS: CASH REQ #: [id number] VICTORINA: 09/15/22 14:[address]: Wild Null DEPT: SURGICAL PATHOLOGY RECD BY: Patricia Oviedo ENTERED: 09/16/22 07:55 SP TYPE: MANNY DOWNS DR: Dr. Hieu Gonzalez MD Tissues: Gallbladder, NOS Procedures: Surgery Specimen Level III HEADER OPERATION: Laparoscopic cholecystectomy PRE-OP DIAGNOSIS: Cholelithiasis TISSUE SUBMITTED: Gallbladder MICROSCOPIC DIAGNOSIS Gallbladder, cholecystectomy: Chronic cholecystitis and cholelithiasis. AM:key 09/17/2022 MICROSCOPIC DESCRIPTION Slides are reviewed. GROSS DESCRIPTION Received is one container labeled with the patient's name and designated gallbladder. The specimen consists of a gallbladder measuring 10.0 x 4.0 x 2.8 cm. The external surface is smooth and glistening. Focally, it is granular, hemorrhagic and contains cautery artifact. The lumen of the gallbladder contains yellow-green mucoid bile and multiple yellow to green stones ranging in size from 0.1 to 1.7 cm in greatest dimension. The mucosa is bile-stained and without any mass lesions. The gallbladder wall averages 0.1 cm in thickness and is free of mass lesions. Agronomy Technician sections of the gallbladder and the cystic duct at margin of resection are submitted in one cassette. / AM:key 09/16/2022 TC:3 CPT: 89538
--- NOTE | 2022-09-15 14:37 | OP.PCM_ITS ---
Report of Operation Date of Procedure: 09/15/22 Pre-Operative Diagnosis: Biliary colic and cholelithiasis Post-Operative Diagnosis: Chronic cholecystitis with hydrops Surgery/Procedure Performed:: Laparoscopic cholecystectomy Specimen's removed: Gallbladder Description of Procedure: After obtaining informed consent patient was brought back to the operating room. General anesthesia was induced. The abdomen was prepped and draped in usual sterile fashion. A small midline incision was made superior to the umbilicus and deepened to the level of fascia. The fascia was elevated and incised. Next the peritoneum was elevated and incised in the same fashion. Finger sweep was performed and the Erwin trocar was placed into the abdomen. The balloon was inflated. The abdomen was inflated to 15 mmHg. Next a camera was introduced into the abdomen and the abdomen was inspected. Next under direct visualization three 5-mm ports were placed one subxiphoid and 2 subcostal. Next the gallbladder was elevated and retracted toward the right shoulder. The peritoneum was stripped from the gallbladder. The infundibulum was located and retracted laterally. Next the triangle of Calot was dissected and the cystic d uct and cystic artery were identified. Cholangiograms were unable to be performed as there was a stone fused to the cystic duct junction at the gallbladder. It was unable to be removed from the cystic duct. Three hemolock clips were placed across the cystic duct. The cystic duct was then divided leaving 2 clips on the stump. The cystic artery was clipped and divided in the same fashion. The hook cautery was then used to take the gallbladder off of the gallbladder bed. There was significant oozing from the gallbladder bed as the gallbladder was fused to the liver. Argon beam coagulation was utilized as well as Surgicel and fibrillar. Eventually after holding pressure the bleeding did stop. The gallbladder fossa was irrigated and suctioned dry. There was no further bleeding. Next the camera was introduced in the subxiphoid port. An Endopouch bag was placed through the umbilical port and the gallbladder was placed into it. The gallbladder was then removed through the umbilical incision. The camera was then reinserted through the umbilical port. The gallbladder fossa was inspected once more and noted to be hemostatic with no leaking bile. The abdomen was suctioned dry. The 5 mm ports were removed under direct visualization. The umbilical port was then removed and the air was removed from the abdomen. Next using an 0 Vicryl suture the umbilical fascia was closed in a [id number] fashion. The umbilical port site was irrigated local anesthetic was administered to all the incisions. All the incisions were closed with interrupted subcuticular 4-0 Monocryl sutures followed by Steri- Strips and dressings. The patient was awoken and taken to PACU in stable condition. Admit VTE Documentation VTE Mechan Device Prophylaxis: SCD's
--- NOTE | 2022-09-15 14:39 | DCINST_ITS ---
Discharge Instructions Procedure Gallbladder Diet Discharge Diet: Light diet - advance as tolerated Activity Discharge Activity: May Not Drive (for 2-3 days or while taking narcotic pain medications.) and - (Do not drive, work heavy equipment or sign legal documents for 24 hours.) May shower in (days): 1 Lifting Restrictions: 20 lbs for 2 weeks Additional Activity Instructions:: Pain medication may cause nausea. You should typically eat light foods as you take your pain medications. Pain medication may also cause constipation. If this is a problem for you, please discuss with your doctor. Dressing / Incision Call your doctor if your incision/area has: Continuous Slow Oozing, Sudden Increased Bleeding, Increased Pain/ Swelling, Increased Redness and Foul Smelling Discharge Call your doctor if you observe: Fever of 101 or Higher Suture Line Care: Avoid Pulling/Pushing and Avoid Pinching/Bending Remove Dressing in: 2 days Additional Dressing/Incision Instructions:: Leave operative bandaids on for 2 days. When you remove dressing, leave Steri-Strips on until your follow-up appointment, or until the Steri-Strips fall off on their own. Follow Up Care Please Follow Up With: Wild Null MD When: Please call to schedule 2 week follow up appointment. [phone] Test Results: Test results from this visit will be discussed in further detail at your follow- up appointment, if applicable. Discharge Plan Admission Attending Provider: Wild Null Primary Care Provider: Hieu Gonzalez Discharge Orders/Prescriptions Prescriptions: New oxycodone 5 mg tablet 5 - 10 mg PO Q4H PRN (Reason: pain) 5 Days Qty: 30 0RF No Action metformin 500 mg tablet 500 mg PO BID Label Comments: TAKE 1 TABLET BY MOUTH 2)TIMES A DAY DIRECTEDS clonazepam 1 mg tablet 1 mg PO BID amlodipine 5 mg tablet 5 mg PO DAILY potassium chloride 20 mEq tablet extended release 15 meq PO BID levothyroxine 25 mcg tablet 50 mcg PO DAILY promethazine [Phenergan] 12.5 mg Tablet 12.5 mg PO Q6H PRN (Reason: Nausea) naltrexone 50 mg tablet 50 mg PO QHS sertraline 100 mg tablet 200 mg PO QHS colestipol 1 gram tablet 2 g PO BID lurasidone 120 mg tablet 120 mg PO QHS Rx Instructions: must administer with food (at least 350 calories) phentermine 37.5 mg capsule 37.5 mg PO DAILY Qty: 30 0RF Rx Instructions: must administer 30 minutes before or 1-2 hours after breakfast doxepin 10 mg capsule 10 mg PO QHS Qty: 30 1RF Referrals / Follow Up: Hieu Gonzalez MD [Primary Care Provider] - Disposition Disposition (needs filled in before D/C Order can be placed): Home, Self Care
[2022-09-15 15:20] LABS: Bedside Glucose 147 mg/dL (74-106)
[2022-09-15] MEDS: Acetaminophen 325 MG Tablet 650 MG PO (17:21)
[2022-09-15] MEDS: oxyCODONE 5 MG Tablet PO (17:21)
== END 2022-09-15 18:05 | disposition home or self-care (01) ==
LOC: SDC 12:00 → AC 12:01
PROVIDERS: Anesthesiology; PCP Family Medicine; Referring Provider Surgery; Visit Provider Surgery
PROC: (CPT 47610; principal; 2022-09-15 13:45)
DX: K80.10 Calculus of gallbladder with chronic cholecystitis without obstruction (principal); F31.9 Bipolar disorder, unspecified; E11.9 Type 2 diabetes mellitus without complications; K21.9 Gastro-esophageal reflux disease without esophagitis; I10 Essential (primary) hypertension; F41.9 Anxiety disorder, unspecified; D64.9 Anemia, unspecified; K52.9 Noninfective gastroenteritis and colitis, unspecified; I99.9 Unspecified disorder of circulatory system; K70.0 Alcoholic fatty liver; E66.9 Obesity, unspecified; E03.9 Hypothyroidism, unspecified; Z68.33 Body mass index [BMI] 33.0-33.9, adult
CPT/HCPCS: 47562; 00790; 81025; 82962; 88304; 93005; J7120; J2405

== ENCOUNTER → 2022-09-22 | Outpatient (CLI) | payer OTHER, SELFPAY ==
[2022-09-22 17:49] LABS: Absolute Lymphocyte Count 1.84 X10^3/uL (0.83-4.51); Absolute Neutrophil Count 3.6 X10^3/uL (2.0-7.7); Basophil# 0.04 X10^3/uL; Basophil% 0.6 % (0-1); Eosinophil# 0.18 X10^3/uL; Eosinophils% 2.9 % (0-5); Hematocrit 37.5 % (37-47); Hemoglobin 11.3 g/dL (12.0-15.0); Lymphocyte # 1.84 X10^3/ul (0.83-4.51); Lymphocyte % 29.3 % (19-41); Mean Corp Hgb Conc 30.1 g/dL (32-36); Mean Corpuscular Hgb 21.9 pg (27.0-32.0); Mean Corpuscular Volume 72.8 fL (81-99); Mean Platelet Vol. 8.3 fl (6.2-12.0); Monocyte# 0.56 X10^3/uL; Monocyte% 8.9 % (0-10); NRBC Flagged by Analyzer 0 % (0-5); Neutrophil # 3.62 X10^3/uL (2.7-7.7); Neutrophil % 57.8 % (47-70); Platelet Count 258 K/mm3 (150-450); RBC Distribution Width CV 15.7 % (11.6-14.6); RBC Distribution Width SD 39.8 fl (35.1-43.9); Red Blood Count 5.15 M/mm3 (4.2-5.4); White Blood Count 6.3 K/mm3 (4.4-11.0)
[2022-09-22 18:27] LABS: ALB/GLOB Ratio 0.7 RATIO (0.9-2.4); AST(SGOT) 16 U/L (15-37); Alanine Aminotransfer ALT/SGPT 25 U/L (13-56); Albumin, Serum 3.5 g/dL (3.2-5.0); Alkaline Phosphatase 134 U/L (45-117); Anion Gap 6 (5-15); BUN 15 mg/dL (7-18); Calcium,Total 9.8 mg/dL (8.5-10.1); Chloride 101 mmol/L (98-107); Cholesterol 214 mg/dL (200); Creatinine, Serum 1.07 mg/dL (0.55-1.02); EST Glomerular Filtration Rate 60 mL/min (>60); Est Glom Filt Rate - Afr Amer 72 mL/min (>60); Globulin 4.9 g/dL (2.2-4.2); Glucose 93 mg/dL (74-106); High Density Lipoprotein 33 mg/dL; Potassium 3.9 mmol/L (3.5-5.1); Protein, Total 8.4 g/dL (6.4-8.2); Sodium Level 131 mmol/L (136-145); Triglycerides 355 mg/dL; Very Low Density Lipoprotein 71 mg/dL (5-40)
[2022-09-22 18:28] LABS: Homocysteine 4.3 umol/L (3.2-10.7)
[2022-09-22 18:41] LABS: Syphilis Antibodies Non-reactive
[2022-09-24 15:25] LABS: ANTINUCLEAR ANTIBODIES DIRECT Negative (Negative)
== END | disposition home or self-care (01) ==
LOC: MTLAB 14:32
PROVIDERS: PCP Family Medicine; Referring Provider Ophthalmology Retina Specialist; Visit Provider Ophthalmology Retina Specialist
DX: I99.8 Other disorder of circulatory system (principal)
CPT/HCPCS: 36415; 80053; 80061; 81241; 83090; 85025; 86038; 86780

== ENCOUNTER → 2022-10-25 | Outpatient (CLI) | payer OTHER, SELFPAY ==
[2022-10-25 18:34] LABS: ALB/GLOB Ratio 0.8 RATIO (0.9-2.4); AST(SGOT) 41 U/L (15-37); Alanine Aminotransfer ALT/SGPT 42 U/L (13-56); Albumin, Serum 3.9 g/dL (3.2-5.0); Alkaline Phosphatase 112 U/L (45-117); Anion Gap 7 (5-15); BUN 13 mg/dL (7-18); BUN/Creat Ratio 12.5 RATIO (10-20); Calcium,Total 9.3 mg/dL (8.5-10.1); Chloride 102 mmol/L (98-107); Creatinine, Serum 1.04 mg/dL (0.55-1.02); EST Glomerular Filtration Rate 62 mL/min (>60); Est Glom Filt Rate - Afr Amer 75 mL/min (>60); Globulin 4.8 g/dL (2.2-4.2); Glucose 79 mg/dL (74-106); Magnesium 2.5 mg/dL (1.6-2.6); Potassium 3.9 mmol/L (3.5-5.1); Protein, Total 8.7 g/dL (6.4-8.2); Sodium Level 134 mmol/L (136-145); T4 Free Direct 1.07 ng/dL (0.76-1.46); Thyroid Stim Hormone (TSH) 1.23 uIU/mL (0.358-3.74)
== END | disposition home or self-care (01) ==
LOC: MTLAB 15:54
PROVIDERS: PCP Family Medicine; Referring Provider Family Medicine; Visit Provider Family Medicine
DX: E87.6 Hypokalemia (principal); E03.9 Hypothyroidism, unspecified; I10 Essential (primary) hypertension
CPT/HCPCS: 36415; 80053; 83735; 84439; 84443

== ENCOUNTER 2022-12-14 19:37 | Emergency (ER) | payer OTHER, SELFPAY ==
[2022-12-14 19:38] VITALS: BP 136/90; PULSE 95; RESP 16; TEMP 36.1; O2SAT 99; BMI 32.1
--- NOTE | 2022-12-14 21:07 | EDS_ITS ---
HPI HPI - GI History of Present Illness Chief Complaint: Abd Pain Narrative Narrative: 41-year-old female with right flank pain. She states it radiates into her right pelvis. She describes nausea associated with this. She has not had fevers but has had sweats. No history of kidney stones. She does feel like since the pain started 3 hours ago she had to defecate and urinate. No history of kidney stones. She states she has cholecystectomy in the past but no other abdominal surgeries. She is not concerned for . [facility] Medical History Alcohol abuse Alcoholic hepatitis Anemia Anxiety Bipolar 1 disorder Bipolar 2 disorder Breast lump Chronic diarrhea Decreased circulation Diabetes Diarrhea Fatty liver Hives Hypertension Insomnia Migraine headache Non-smoker Thyroid disease Home Medications potassium chloride 20 mEq tablet,extended release 15 meq PO BID 12/13/21 [History Last Taken Unknown] levothyroxine 25 mcg tablet 50 mcg PO DAILY 07/06/22 [History Last Taken 09/15/22] phentermine 37.5 mg capsule 37.5 mg PO DAILY #30 caps 08/11/22 [Rx Last Taken 09/15/22] metformin 500 mg tablet 500 mg PO BID 08/19/22 [History Last Taken 09/15/22] amlodipine 5 mg tablet 5 mg PO DAILY 09/07/22 [History Last Taken 09/15/22] colestipol 1 gram tablet 2 g PO BID 09/09/22 [History Last Taken Unknown] naltrexone 50 mg tablet 50 mg PO QHS 09/09/22 [History Last Taken Unknown] promethazine 12.5 mg tablet 12.5 mg PO Q6H PRN Nausea 09/09/22 [History Last Taken Unknown] oxycodone 5 mg tablet 5 - 10 mg (1 - 2 x 5 mg) PO Q4H PRN pain 5 days #30 tabs 09/15/22 [Rx Last Taken Unknown] sertraline 100 mg tablet See Rx Instructions .Route .COMPLEX #120 TABLETS 09/23/22 [Rx Last Taken Unknown] fenofibrate nanocrystallized 145 mg tablet tablet PO 10/20/22 [History Last Taken Unknown] omega-3 acid ethyl esters 1 gram capsule cap PO 10/20/22 [History Last Taken Unknown] telmisartan 40 mg tablet tablet PO 10/20/22 [History Last Taken Unknown] lurasidone 120 mg tablet 120 mg PO QHS #30 tabs 10/25/22 [Rx Last Taken Unknown] zolpidem 5 mg tablet (Ambien) 5 mg PO QHS PRN insomnia #15 tabs 10/26/22 [Rx Last Taken Unknown] clonazepam 1 mg tablet 1 mg PO BID PRN anxiety #60 tabs 11/29/22 [Rx Last Taken Unknown] ondansetron 4 mg disintegrating tablet 4 mg PO Q8H PRN PRN Nausea #20 tabs 12/14/22 [Rx Last Taken Unknown] oxycodone 5 mg capsule 5 mg PO Q8H PRN pain 3 days #12 caps 12/14/22 [Rx Last Taken Unknown] Allergy/AdvReac Type Severity Reaction Status Date / Time No Known Allergies Allergy Verified 12/14/22 19:38 Family History Father Heart disease Mother Cancer lung- smoker Surgical History delivery delivered Hx laparoscopic cholecystectomy Hx of colonoscopy Hx of tonsillectomy Social History Smoking Status: Never smoker alcohol intake: current details: social substance use type: does not use caffeine: Yes what type of physical activity do you participate in: none seatbelt use: always do you feel safe at home: Yes 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 [employer] Constitutional Constitutional ED: Denies chills, fever(s) or sweats Eyes Eyes: Denies blurry vision or change in vision ENT ENT ED: Denies ear pain or sore throat Cardiovascular Cardiovascular: Denies chest pain, palpitations or racing heartbeat Respiratory/Chest Respiratory/Chest: Denies cough, dyspnea or sputum Gastrointestinal Gastrointestinal: Reports abdominal pain, nausea and vomiting; Denies constipation or diarrhea Genitourinary Genitourinary ED: Reports urinary frequency; Denies dysuria or hematuria Musculoskeletal Musculoskeletal: Denies arthralgias, myalgias or neck pain Integumentary Denies abscess, Abrasions or rash Neurologic Neurologic: Denies headache(s), paresthesias or weakness Psychiatric Psychiatric: Denies anxiety, depression, suicidal ideation or suicidal thoughts Endocrine Endocrinology: Denies polydipsia or polyuria EXAM Physical Exam Const Vital Signs: 12/14/22 19:38 Temperature 96.9 F L Temperature Source Temporal Pulse Rate 95 Respiratory Rate 16 Blood Pressure 136/90 H Blood Pressure Mean 105 Pulse Ox 99 Positive well nourished General Appearance ED: NAD; Negative for pallor HEENT Reports moist mucous membranes normocephalic and atraumatic Eyes PERRL and EOMs intact bilaterally Resp normal respiratory effort Cardio regular rate and regular rhythm GI non-tender Back/Spine General Back: CVA tenderness right Extremity full ROM Neuro CN's II-XII intact bilaterally Sensorium / Orientation: alert, oriented to person, oriented to place and oriented to time Psych mental status grossly normal Skin no wounds General Skin Exam: Negative for jaundice or pallor MDM MDM MDM Narrative Medical decision making narrative: Patient presenting with right flank pain. She presents as she has a kidney stone. No history of this. She is medicated with morphine and Zofran. Is also given Toradol she is given a liter normal saline. Differential includes UTI, pyelonephritis, kidney stone, ureteral calculi, diverticulitis, colitis, constipation, appendicitis, electrolyte abnormalities, dehydration, anemia, ovarian torsion. CBC to assess white blood cell count, hemoglobin, platelets. BMP to assess renal function, electrolytes. Urinalysis to assess for UTI. hCG to assess for . CBC shows no leukocytosis. Hemoglobin stable at 10.9. Platelets 246. Creatinine slightly elevated at 1.41. Urinalysis shows occult blood however I do not believe there is evidence of infection. Patient reevaluated after morphine, Zofran, Toradol and feels improved. CT of the abdomen pelvis shows a 5 mm distal ureteral stone. Since patient is feeling improved I will send her home with oxycodone and Zofran. She is counseled to drink plenty of fluids. Her prescriptions are filled here by meds to beds. She is given follow-up with urology and return precautions were discussed. Impression: 1. 5 mm right UVJ 2. Nausea 3. Flank pain 4. Hematuria Lab Data Attestation: I reviewed the patient's lab results. Labs: Laboratory Results - last 24 hr 12/14/22 12/14/22 20:00 20:15 WBC 7.1 RBC 4.67 Hgb 10.9 L Hct 32.9 L MCV 70.4 L MCH 23.3 L MCHC 33.1 RDW Std Deviation 41.1 RDW Coeff of Chet 16.1 H Plt Count 246 MPV 8.4 Immature Gran % (Auto) 0.300 Neut % (Auto) 79.3 H Lymph % (Auto) 12.6 L [place] % (Auto) 6.4 Eos % (Auto) 1.0 Baso % (Auto) 0.4 Absolute Neuts (auto) 5.6 Absolute Lymphs (auto) 0.89 Nucleated RBC % 0 Sodium 131 L Potassium 4.0 Chloride 102 Carbon Dioxide 21.0 Anion Gap 8 BUN 20 H Creatinine 1.41 H Estim Creat Clear Calc 54.87 Est GFR (MDRD) Af Amer 53 L Est GFR (MDRD) Non-Af 44 L BUN/Creatinine Ratio 14.2 Glucose 102 Calcium 8.7 Serum , Qual NEGATIVE Urine Color Yellow Urine Clarity Cloudy Urine pH 8.0 Ur Specific [place] 1.010 Urine Protein 30 H Urine Glucose (UA) Normal Urine Ketones Negative Urine Occult Blood 250 H Urine Nitrite Negative Urine Bilirubin Negative Urine Urobilinogen Normal Ur Leukocyte Esterase 500 H Urine RBC 0-5 SEEN Urine WBC 50-100 SEEN Ur Squamous Epith Cells 0-5 SEEN Ur Transition Epith Cell 0 SEEN Urine Bacteria 1+ Urine Mucus 0 SEEN Radiography Diagnostic Testing: Clinical Impression(s) from Imaging Studies Abdomen/Pelvis CT 12/14/22 22:12 IMPRESSION: Moderate right hydronephrosis due to a 5 mm stone within the distal ureter just proximal to the UVJ. Stable left-sided staghorn calculus. Hepatosplenomegaly again demonstrated. Interval cholecystectomy. Electronically Signed: Dwayne Montes MD at 23:32 EDT , Discharge Plan Triage Chief Complaint: Abd Pain ED Provider: Damien Daily Dx/Rx/DC Orders Instructions: ED Kidney Stone w/ Colic Prescriptions: New ondansetron 4 mg tablet,disintegrating 4 mg PO Q8H PRN PRN (Reason: Nausea) Qty: 20 0RF oxycodone 5 mg capsule 5 mg PO Q8H PRN (Reason: pain) 3 Days Qty: 12 0RF No Action metformin 500 mg tablet 500 mg PO BID Patient Comments: TAKE 1 TABLET BY MOUTH 2)TIMES A DAY DIRECTEDS fenofibrate nanocrystallized 145 mg tablet PO omega-3 acid ethyl esters 1 gram capsule PO telmisartan 40 mg tablet PO amlodipine 5 mg tablet 5 mg PO DAILY potassium chloride 20 mEq tablet extended release 15 meq PO BID levothyroxine 25 mcg tablet 50 mcg PO DAILY promethazine [Phenergan] 12.5 mg Tablet 12.5 mg PO Q6H PRN (Reason: Nausea) naltrexone 50 mg tablet 50 mg PO QHS colestipol 1 gram tablet 2 g PO BID oxycodone 5 mg tablet 5 - 10 mg PO Q4H PRN (Reason: pain) 5 Days Qty: 30 0RF phentermine 37.5 mg capsule 37.5 mg PO DAILY Qty: 30 0RF Rx Instructions: must administer 30 minutes before or 1-2 hours after breakfast sertraline 100 mg tablet See Rx Instructions .ROUTE .COMPLEX Qty: 120 0RF Dose Instruction: TAKE TWO TABLETS BY MOUTH ONCE DAILY FOR DEPRESSION Rx Instructions: TAKE TWO TABLETS BY MOUTH ONCE DAILY FOR DEPRESSION lurasidone 120 mg tablet 120 mg PO QHS Qty: 30 2RF Rx Instructions: must administer with food (at least 350 calories) zolpidem [Ambien] 5 mg tablet 5 mg PO QHS PRN (Reason: insomnia) Qty: 15 0RF clonazepam 1 mg tablet 1 mg PO BID PRN (Reason: anxiety) Qty: 60 1RF Primary Care Provider: Hieu Gonzalez Referrals: Hieu Gonzalez MD [Primary Care Provider] - Buffy Gay MD [Med Staff - Active Staff] - 3-5 Days Disposition Disposition: Home, Self Care
[2022-12-14] MEDS: Ketorolac 15 MG/ML Vial IV (21:11)
[2022-12-14 21:12] LABS: Absolute Lymphocyte Count 0.89 X10^3/uL (0.83-4.51); Absolute Neutrophil Count 5.6 X10^3/uL (2.0-7.7); Basophil# 0.03 X10^3/uL; Basophil% 0.4 % (0-1); Eosinophil# 0.07 X10^3/uL; Hematocrit 32.9 % (37-47); Hemoglobin 10.9 g/dL (12.0-15.0); Lymphocyte # 0.89 X10^3/ul (0.83-4.51); Lymphocyte % 12.6 % (19-41); Mean Corp Hgb Conc 33.1 g/dL (32-36); Mean Corpuscular Hgb 23.3 pg (27.0-32.0); Mean Corpuscular Volume 70.4 fL (81-99); Mean Platelet Vol. 8.4 fl (6.2-12.0); Monocyte# 0.45 X10^3/uL; Monocyte% 6.4 % (0-10); NRBC Flagged by Analyzer 0 % (0-5); Neutrophil % 79.3 % (47-70); Platelet Count 246 K/mm3 (150-450); RBC Distribution Width CV 16.1 % (11.6-14.6); RBC Distribution Width SD 41.1 fl (35.1-43.9); Red Blood Count 4.67 M/mm3 (4.2-5.4); White Blood Count 7.1 K/mm3 (4.4-11.0)
[2022-12-14] MEDS: Morphine 4 MG/ML Syringe IV (21:12)
[2022-12-14] MEDS: Ondansetron 4 MG/2 ML Vial IV (21:12)
[2022-12-14 21:14] LABS: Color, Urine Yellow (Yellow); Glucose, Dipstick Normal (Normal); Ketone-Dipstick Negative (Negative); Leukocyte Esterase-Dipstick 500 /ul (Negative); Nitrite-Dipstick Negative (Negative); Occult Blood-Urine 250 /ul (Negative); Protein-Dipstick 30 mg/dl (Negative); Urine Bilirubin Dipstick Negative (Negative); Urine Clarity Cloudy (Clear); Urine Urobilinogen Normal (Normal)
[2022-12-14 21:19] LABS: Red Blood Cells-Urine 0-5 SEEN /hpf (0-5); White Blood Cells 50-100 SEEN /hpf (0-5)
[2022-12-14 21:20] LABS: Bacteria 1+ /hpf (None Seen); Mucous, Urine 0 SEEN /hpf (<or=2+); Squamous Epithelial Cells - UA 0-5 SEEN /hpf (5-10); Transitional Epithelial - Ur 0 SEEN /hpf (0-5)
[2022-12-14 21:21] LABS: Internal QC Validated? YES +Cl - CLEAR BKGD; Pregnancy, Serum, hCG Quali. NEGATIVE Negative
[2022-12-14 21:28] LABS: Anion Gap 8 (5-15); BUN 20 mg/dL (7-18); BUN/Creat Ratio 14.2 RATIO (10-20); Calcium,Total 8.7 mg/dL (8.5-10.1); Chloride 102 mmol/L (98-107); Creatinine, Serum 1.41 mg/dL (0.55-1.02); EST Glomerular Filtration Rate 44 mL/min (>60); Est Glom Filt Rate - Afr Amer 53 mL/min (>60); Estimated Creatinine Clearance 54.87 ml/min; Glucose 102 mg/dL (74-106); Sodium Level 131 mmol/L (136-145)
--- NOTE | 2022-12-14 22:12 | CT_ITS ---
EXAM: CT ABDOMEN AND PELVIS WITHOUT INTRAVENOUS CONTRAST CLINICAL INDICATION: flank pain TECHNIQUE: Helically acquired images were obtained of the abdomen and pelvis without intravenous contrast. This CT exam was performed using one or more of the following dose reduction techniques: automated exposure control, adjustment of the mA and/or kV according to patient size, and/or use of iterative reconstruction technique. RADIATION DOSE: Total DLP: 978.42 mGy-cm. COMPARISON: Abdominal pelvic CT of 07/29/2021. Limited abdominal ultrasound of 09/03/2022. FINDINGS: LOWER THORAX: The visualized lung bases are clear. No coronary artery calcification is visualized. No significant pericardial effusion. ABDOMEN: LIVER: The liver remains enlarged with the right hepatic lobe measuring 24 cm in cephalocaudal dimension. GALLBLADDER AND BILE DUCTS: There is been interval cholecystectomy. There is mild postcholecystectomy prominence of the common bile duct which measures 8 mm in diameter distally. No calcified common duct stone. PANCREAS: Unremarkable. No focal cystic mass. SPLEEN: Spleen remains enlarged measuring 16.4 cm in AP diameter by 16.1 cm in cephalocaudal dimension. ADRENALS: Unremarkable. No nodules. KIDNEYS AND URETERS: Right kidney is asymmetrically enlarged and edematous with perirenal stranding and a trace of perirenal fluid. Moderate right-sided hydronephrosis and hydroureter have developed; a 5 mm lobulated stone is seen within the distal ureter just proximal to the UVJ. No stones are seen within the right intrarenal collecting system. Left kidney again demonstrates a large staghorn calculus. No left-sided hydronephrosis is noted. STOMACH AND BOWEL: No gastric mural thickening, periduodenal inflammatory changes or distended small bowel loops. Cecum is elongated and extends to the left of midline within the left upper pelvis. No findings of small bowel obstruction, diverticulitis or colitis. PELVIS: APPENDIX: Normal. No evidence of acute appendicitis. BLADDER: Urinary bladder is nearly empty. REPRODUCTIVE: Unremarkable as visualized. No mass. ABDOMEN and PELVIS: INTRAPERITONEAL SPACE: Unremarkable. No ascites or other fluid collection. No free air. BONES/JOINTS: Mild disc space narrowing again noted at the L4/5 level with endplate sclerosis and mild broad-based annular bulge. Lower lumbar facet arthritis is noted. No acute osseous abnormality. No suspicious lytic or blastic abnormality. SOFT TISSUES: Very small fat-filled umbilical hernia. VASCULATURE: Normal caliber abdominal aorta. LYMPH NODES: Unremarkable. No enlarged lymph nodes. CT/Abdomen/Pelvis without Cont IMPRESSION: Moderate right hydronephrosis due to a 5 mm stone within the distal ureter just proximal to the UVJ. Stable left-sided staghorn calculus. Hepatosplenomegaly again demonstrated. Interval cholecystectomy. Electronically Signed: Dwayne Montes MD at 23:32 EDT ,
[2022-12-15] VITALS: BP 124/68; PULSE 61; RESP 18
== END 2022-12-15 00:20 | disposition home or self-care (01) ==
PROVIDERS: Emergency Provider Student in an Organized Health Care Education/Training Program; PCP Family Medicine; Visit Provider Student in an Organized Health Care Education/Training Program
DX: N13.2 Hydronephrosis with renal and ureteral calculous obstruction (principal); F31.9 Bipolar disorder, unspecified; E11.9 Type 2 diabetes mellitus without complications; I10 Essential (primary) hypertension; R11.0 Nausea; R31.9 Hematuria, unspecified; Z90.49 Acquired absence of other specified parts of digestive tract
CPT/HCPCS: 74176; 80048; 81001; 84703; 85025; 96374; 96375; 99283; A4216; J2405

== ENCOUNTER 2022-12-16 17:20 | Observation (INO) | payer OTHER, SELFPAY ==
[2022-12-16 16:27] VITALS: BMI 32.4
[2022-12-16 16:30] VITALS: BP 90/54; PULSE 107; RESP 18; TEMP 36.6; O2SAT 100
[2022-12-16] MEDS: 0.9% Saline Lock 10 ML Syringe IV ×4 (16:52→21:23)
--- NOTE | 2022-12-16 17:27 | PCM.HP.STD ---
HPI - General General Date of Admission: 12/16/22 Date of Service: 12/17/22 Chief Complaint: Flank pain HPI Narrative MARIIA DAVIDSON, is a 41 F who presented to my office late yesterday afternoon with uncontrolled right flank pain with nausea. She was seen in the emergency department on December 14 and found to have a distal partially obstructing right ureteral calculus. She was sent home with oral medications and those have not been sufficient to control her pain. She is crying in the office today. She reports that she has been having fevers to 102 at home intermittently. She denies having dysuria or lower urinary tract symptoms. This is the first kidney stone that she is passing, and she reports that she was unaware that her left kidney is essentially filled with stones and has been for several years on imaging. [facility] Medical History (Updated 12/17/22 @ 08:[address] Buffy Gay MD) Alcohol abuse Alcoholic hepatitis Anemia Anxiety Bipolar 1 disorder Bipolar 2 disorder Breast lump Chronic diarrhea Decreased circulation Diabetes Diarrhea Fatty liver Hives Hypertension Insomnia Migraine headache Non-smoker Right ureteral calculus Thyroid disease Home Medications potassium chloride 20 mEq tablet,extended release 15 meq PO BID supplement 12/13/21 [History Last Taken Unknown] levothyroxine 25 mcg tablet 50 mcg PO DAILY thyroid 07/06/22 [History Last Taken 09/15/22] phentermine 37.5 mg capsule 37.5 mg PO DAILY . #30 caps 08/11/22 [Rx Last Taken 09/15/22] metformin 500 mg tablet 500 mg PO BID glucose 08/19/22 [History Last Taken 09/15/22] amlodipine 5 mg tablet 5 mg PO DAILY blood pressure 09/07/22 [History Last Taken 12/16/22] colestipol 1 gram tablet 2 g PO BID . 09/09/22 [History Last Taken Unknown] naltrexone 50 mg tablet 50 mg PO QHS . 09/09/22 [History Last Taken Unknown] promethazine 12.5 mg tablet 12.5 mg PO Q6H PRN Nausea 09/09/22 [History Last Taken Unknown] oxycodone 5 mg tablet 5 - 10 mg (1 - 2 x 5 mg) PO Q4H PRN pain 5 days #30 tabs 09/15/22 [Rx Last Taken Unknown] fenofibrate nanocrystallized 145 mg tablet 1 tablet PO .supper . 10/20/22 [History Last Taken Unknown] omega-3 acid ethyl esters 1 gram capsule cap PO not taking 10/20/22 [History Last Taken Unknown] telmisartan 40 mg tablet 40 mg PO DAILY blood pressure 10/20/22 [History Last Taken Unknown] lurasidone 120 mg tablet 120 mg PO QHS . #30 tabs 10/25/22 [Rx Last Taken Unknown] zolpidem 5 mg tablet (Ambien) 5 mg PO QHS PRN insomnia #15 tabs 10/26/22 [Rx Last Taken Unknown] clonazepam 1 mg tablet 1 mg PO BID PRN anxiety #60 tabs 11/29/22 [Rx Last Taken Unknown] ondansetron 4 mg disintegrating tablet 4 mg PO Q8H PRN PRN Nausea #20 tabs 12/14/22 [Rx Last Taken Unknown] oxycodone 5 mg capsule 5 mg PO Q8H PRN pain 3 days #12 caps 12/14/22 [Rx Last Taken Unknown] sertraline 100 mg tablet 200 mg PO DAILY depression 12/16/22 [History Last Taken Unknown] Allergy/AdvReac Type Severity Reaction Status Date / Time No Known Allergies Allergy Verified 12/14/22 19:38 Family History Father Heart disease Mother Cancer lung- smoker Surgical History delivery delivered History of cholecystectomy Hx laparoscopic cholecystectomy Hx of colonoscopy Hx of tonsillectomy Social History Smoking Status: Never smoker alcohol intake: current details: social substance use type: does not use caffeine: Yes what type of physical activity do you participate in: none seatbelt use: always do you feel safe at home: Yes 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 works at [employer] Constitutional Constitutional: Reports chills and fever(s) Eyes Eyes: Reports systems reviewed and no addt'l complaints, except as documented ENT HEENT: Reports systems reviewed and no addt'l complaints, except as documented Cardiovascular Cardiovascular: Reports nausea and vomiting; Denies chest pain or dyspnea Respiratory/Chest Respiratory/Chest: Denies cough or dyspnea Gastrointestinal Gastrointestinal: Reports nausea and vomiting Genitourinary Genitourinary: Reports abdominal discomfort, flank pain and low back pain; Denies anuria, difficulty urinating, dysuria, hematuria, polyuria, urinary frequency or urinary urgency Musculoskeletal Musculoskeletal: Reports back pain Integumentary Integumentary: Reports systems reviewed and no addt'l complaints, except as documented Neurologic Neurologic: Reports systems reviewed and no addt'l complaints, except as documented Psychiatric Psychiatric: Reports systems reviewed and no addt'l complaints, except as documented Endocrine Endocrinology: Reports systems reviewed and no addt'l complaints, except as documented Hematologic/Lymphatic Hematologic/Lymphatic: Reports systems reviewed and no addt'l complaints, except as documented Allergic/Immunologic Allergic/Immunologic: Reports systems reviewed and no addt'l complaints, except as documented Vital Signs Vital Signs Vital Signs: Weight Weight: 99.7 kg Body Mass Index (BMI) 32.4 Physical Exam Const alert and oriented x3 Constitutional Narrative: Crying in the office. Much more calm now. General Appearance: cooperative and comfortable HEENT normocephalic, head/scalp atraumatic, hearing grossly normal bilaterally, external nose normal and moist oral mucous membranes Eyes General Eye: normal appearance of both eyes Neck supple General: normal visual inspection and trachea midline Lymph Lymphatic: no lymphedema noted Chest inspection of chest normal Resp normal respiratory effort, normal air movement, no retractions and no use of accessory muscles Cardio regular rate GI soft to palpation, non-tender and non-distended Bladder / Kidney Exam: CVA tenderness right Back/Spine General Back: CVA tenderness right Extremity normal to inspection Skin no rashes or lesions noted, skin turgor normal, no jaundice, no petechiae and no mottling Neuro oriented x3, CN's II-XII intact bilaterally and moves all extremities Psych mental status grossly normal and cooperative Results Lab / Micro Data 12/16/22 17:50 12/16/22 17:50 Assessment & Plan Assessment/Plan (1) Right ureteral calculus: (2) Urinary tract infection: QUALIFIERS: Urinary tract infection type: site unspecified Hematuria presence: without hematuria Qualified Code(s): N39.0 - Urinary tract infection, site not specified (3) Flank pain: (4) Nausea & vomiting: QUALIFIERS: Vomiting type: unspecified Qualified Code(s): R11.2 - Nausea with vomiting, unspecified PLAN: Plan Cystoscopy and right ureteral stent insertion Supportive care with intravenous fluids, pain and nausea control Antibiotics and await urine culture, was sent from the office
[2022-12-16 18:09] LABS: Absolute Lymphocyte Count 0.49 X10^3/uL (0.83-4.51); Absolute Neutrophil Count 4.8 X10^3/uL (2.0-7.7); Basophil# 0.02 X10^3/uL; Basophil% 0.3 % (0-1); Eosinophil# 0.06 X10^3/uL; Hematocrit 27.4 % (37-47); Lymphocyte # 0.49 X10^3/ul (0.83-4.51); Lymphocyte % 8.5 % (19-41); Mean Corp Hgb Conc 32.8 g/dL (32-36); Mean Corpuscular Hgb 23.3 pg (27.0-32.0); Mean Platelet Vol. 8.6 fl (6.2-12.0); Monocyte# 0.35 X10^3/uL; Monocyte% 6.1 % (0-10); NRBC Flagged by Analyzer 0 % (0-5); Neutrophil # 4.81 X10^3/uL (2.7-7.7); Neutrophil % 83.4 % (47-70); POSITIVE DIFFERENTIAL YES; Platelet Count 142 K/mm3 (150-450); RBC Distribution Width CV 16.7 % (11.6-14.6); Red Blood Count 3.86 M/mm3 (4.2-5.4); White Blood Count 5.8 K/mm3 (4.4-11.0)
[2022-12-16 18:10] LABS: Differential Indicated SCAN CRITERIA MET
[2022-12-16] MEDS: Cefazolin 1 GM/50 ML BAG IV ×2 (18:20→21:23)
[2022-12-16] MEDS: Lactated Ringers 1,000 ML 125 ML IV (18:20)
[2022-12-16 18:25] LABS: Anion Gap 7 (5-15); BUN 26 mg/dL (7-18); BUN/Creat Ratio 11.8 RATIO (10-20); Calcium,Total 8.7 mg/dL (8.5-10.1); Chloride 101 mmol/L (98-107); EST Glomerular Filtration Rate 26 mL/min (>60); Est Glom Filt Rate - Afr Amer 32 mL/min (>60); Estimated Creatinine Clearance 35.17 ml/min; Glucose 88 mg/dL (74-106); Potassium 3.9 mmol/L (3.5-5.1); Sodium Level 131 mmol/L (136-145)
[2022-12-16 18:33] LABS: Platelet Estimate ADEQUATE (ADEQ)
[2022-12-16 18:34] LABS: Anisocytosis 1+; Hypochromasia RARE; Microcytosis 1+
[2022-12-16 19:13] LABS: Internal QC Validated? YES +Cl - CLEAR BKGD; Pregnancy, Urine Negative Negative
[2022-12-16 19:31] LABS: Thyroid Stim Hormone (TSH) 0.77 uIU/mL (0.358-3.74)
[2022-12-16 20:10] VITALS: BP 99/59; PULSE 107; RESP 18; TEMP 37.1; O2SAT 94
[2022-12-16] MEDS: Ketorolac 30 MG/ML Syringe IV (20:12)
[2022-12-16] MEDS: Morphine 2 MG/ML Syringe IV (21:23)
[2022-12-16 22:33] LABS: Bedside Glucose 103 mg/dL (74-106)
[2022-12-17] VITALS (10 sets, daily range): BP systolic 90–120; BP diastolic 38–75; PULSE 104–123; RESP 16–18; TEMP 36.9–37.6; O2SAT 97–100; BMI 32.4
[2022-12-17] MEDS: Lactated Ringers 1,000 ML 125 ML IV ×2 (03:08→11:25)
[2022-12-17] MEDS: Morphine 2 MG/ML Syringe IV ×2 (03:08→10:42)
[2022-12-17] MEDS: 0.9% Saline Lock 10 ML Syringe IV ×2 (03:08→10:42)
[2022-12-17] MEDS: Ketorolac 30 MG/ML Syringe IV (04:09)
[2022-12-17] MEDS: Cefazolin 1 GM/50 ML BAG IV (06:19)
[2022-12-17 06:39] LABS: Bedside Glucose 127 mg/dL (74-106)
--- NOTE | 2022-12-17 08:52 | PCM.OPRPT ---
Problems Associated Problem List Diagnoses (1) Right ureteral calculus: (2) Acute renal insufficiency: Report of Operation Date of Procedure: 12/17/22 Pre-Operative Diagnosis: Right ureteral calculus, acute renal insufficiency, uncontrolled pain Post-Operative Diagnosis: Same Surgery/Procedure Performed:: Cystoscopy with right ureteral stent insertion Surgeon: Buffy Gay Type of Anesthesia: MAC Description of Procedure: The patient is a 41-year-old female seen in the office yesterday with a right distal obstructing ureteral calculus who now presents for cystoscopy and right ureteral stent insertion. Informed consent was obtained. The patient was taken to the operating room and placed on the operating room table. Anesthesia monitored the head, neck, airway, IV access and vital signs throughout the case. Once anesthesia was appropriate administered, the patient was placed into dorsolithotomy position was prepped and draped in usual sterile fashion. The cystoscope was inserted through the urethra under direct visualization into the urinary bladder. The bladder mucosa appeared to be normal in its entirety. The right ureteral orifice was identified and intubated gently with an 0.035 Glidewire. This was seen curling in the right renal pelvis. At this time a 6 Portuguese 28 cm JJ stent was inserted over the wire with good positioning in the renal pelvis as well as the urinary bladder. The cystoscope was used to empty the bladder and was then removed. The patient was awakened and taken to the recovery room in good condition. There were no complications during this procedure. Grafts/Implants Used: 6 Portuguese by 28 cm JJ stent Complications None Admit VTE Documentation VTE Present on Admission: Yes VTE Mechan Device Prophylaxis: SCD's VTE Pharm Prophylaxis ordered?: No Reason prophylaxis not ordered:: Treatment Not Indicated
--- NOTE | 2022-12-17 11:46 | DCINST_ITS ---
Discharge Instructions Diet Discharge Diet: No restrictions Activity Discharge Activity: Return to Normal Activity Dressing / Incision Call your doctor if you observe: Fever of 101 or Higher, Inability to urinate and Inability to have a bowel movement Follow Up Care Please Follow Up With: Buffy Gay MD When: the office will call next week for instructions Test Results: Test results from this visit will be discussed in further detail at your follow- up appointment, if applicable. Discharge Plan Admission Admit Date/Time: 12/16/22 17:20 Attending Provider: Buffy Gay Primary Care Provider: Hieu Gonzalez Discharge Orders/Prescriptions Prescriptions: New cephalexin [cephalexin] 500 mg capsule 500 mg PO 3XD 7 Days Qty: 21 0RF Continued metformin 500 mg tablet 500 mg PO BID Patient Comments: TAKE 1 TABLET BY MOUTH 2)TIMES A DAY DIRECTEDS fenofibrate nanocrystallized 145 mg tablet 1 tablet PO .supper omega-3 acid ethyl esters 1 gram capsule PO telmisartan 40 mg tablet 40 mg PO DAILY amlodipine 5 mg tablet 5 mg PO DAILY potassium chloride 20 mEq tablet extended release 15 meq PO BID levothyroxine 25 mcg tablet 50 mcg PO DAILY promethazine 12.5 mg Tablet 12.5 mg PO Q6H PRN (Reason: Nausea) colestipol 1 gram tablet 2 g PO BID oxycodone 5 mg tablet 5 - 10 mg PO Q4H PRN (Reason: pain) 5 Days Qty: 30 0RF ondansetron 4 mg tablet,disintegrating 4 mg PO Q8H PRN PRN (Reason: Nausea) Qty: 20 0RF sertraline 100 mg tablet 200 mg PO DAILY Rx Instructions: TAKE TWO TABLETS BY MOUTH ONCE DAILY FOR DEPRESSION oxycodone 5 mg capsule 5 mg PO Q8H PRN (Reason: pain) 3 Days Qty: 12 0RF phentermine 37.5 mg capsule 37.5 mg PO DAILY Qty: 30 0RF Rx Instructions: must administer 30 minutes before or 1-2 hours after breakfast lurasidone 120 mg tablet 120 mg PO QHS Qty: 30 2RF Rx Instructions: must administer with food (at least 350 calories) zolpidem [Ambien] 5 mg tablet 5 mg PO QHS PRN (Reason: insomnia) Qty: 15 0RF clonazepam 1 mg tablet 1 mg PO BID PRN (Reason: anxiety) Qty: 60 1RF Discontinued naltrexone 50 mg tablet 50 mg PO QHS Referrals / Follow Up: Hieu Gonzalez MD [Primary Care Provider] - Disposition Disposition (needs filled in before D/C Order can be placed): Home, Self Care
== END 2022-12-17 13:32 | disposition home or self-care (01) ==
PROVIDERS: Admitting Provider Urology; PCP Family Medicine; Visit Provider Urology
PROC: (CPT 52332; principal; 2022-12-17 12:20)
DX: N20.1 Calculus of ureter (principal); F31.9 Bipolar disorder, unspecified; E11.9 Type 2 diabetes mellitus without complications; I10 Essential (primary) hypertension; Z79.84 Long term (current) use of oral hypoglycemic drugs; E07.9 Disorder of thyroid, unspecified; N28.9 Disorder of kidney and ureter, unspecified; Z79.899 Other long term (current) drug therapy; Z79.890 Hormone replacement therapy; K70.0 Alcoholic fatty liver; E66.9 Obesity, unspecified; F41.9 Anxiety disorder, unspecified; Z68.32 Body mass index [BMI] 32.0-32.9, adult; N39.0 Urinary tract infection, site not specified
CPT/HCPCS: 52332; 00910; 36415; 76000; 80048; 81025; 82962; 84443; 85025; 96361; 96365; 96366; 96375; 96376; 99221; J7120; A4216; G0378

== ENCOUNTER 2023-01-27 09:45 | Day surgery (SDC) | payer OTHER, SELFPAY ==
[2023-01-27 10:14] VITALS: BP 103/72; PULSE 82; RESP 16; TEMP 36.4; O2SAT 99; BMI 32.5
[2023-01-27 10:28] LABS: Internal QC Validated? YES +Cl - CLEAR BKGD
[2023-01-27] MEDS: Lactated Ringers 1,000 ML 15 ML IV (10:28)
[2023-01-27 10:30] LABS: Pregnancy, Urine Negative Negative
--- NOTE | 2023-01-27 10:45 | OP.PCM_ITS ---
Report of Operation Date of Procedure: 01/27/23 Pre-Operative Diagnosis: Right ureteral calculus Post-Operative Diagnosis: Same Surgery/Procedure Performed:: Cystoscopy, right ureteroscopy, holmium laser lithotripsy, stone basket extraction, right ureteral stent insertion Surgeon: Buffy Gay Type of Anesthesia: General Specimen's removed: Ureteral calculus Description of Procedure: The patient is a 42-year-old female with a right ureteral calculus status post right ureteral stent insertion for infection with fever. She now presents for definitive surgical intervention for the stone. Informed consent was obtained. The patient was taken to the operating room and placed in a supine position on the operating room table. Anesthesia monitored the head, neck, airway, IV access, vital signs throughout the case. Once anesthesia was appropriately administered, the patient was placed into dorsolithotomy position was prepped and draped in usual sterile fashion. The cystoscope was inserted through the urethra under direct visualization into the urinary bladder. The indwelling right ureteral stent was identified. Alongside the stent a 0.035 Glidewire was inserted and the stent was removed. Using the semirigid ureteroscope, the right ureter was intubated and the ureteroscope was advanced carefully until the stone was identified. The stone was broken into small fragments using the 270 ?m laser fiber. The pieces were basket extracted without difficulty. After conclusion of stone removal, the safety wire was used to insert a 4.5 x 28 cm JJ stent with good positioning in the renal pelvis as well as the urinary bladder. The patient's bladder was then emptied and the case was terminated. She was awakened and taken to the recovery room in good condition. There were no complications during this procedure. Grafts/Implants Used: 4.5 x 28 cm JJ stent Complications None Admit VTE Documentation VTE Present on Admission: Yes VTE Mechan Device Prophylaxis: SCD's VTE Pharm Prophylaxis ordered?: No Reason prophylaxis not ordered:: Treatment Not Indicated
--- NOTE | 2023-01-27 10:45 | PCM.OPRPT ---
Report of Operation Date of Procedure: 01/27/23 Pre-Operative Diagnosis: Right ureteral calculus Post-Operative Diagnosis: Same, passed Surgery/Procedure Performed:: Cystoscopy, right ureteroscopy, right ureteral stent removal Surgeon: Buffy Gay Type of Anesthesia: General Specimen's removed: none Description of Procedure: The patient is a 42-year-old female with a right ureteral calculus status post right ureteral stent insertion for infection with fever. She now presents for definitive surgical intervention for the stone. Informed consent was obtained. The patient was taken to the operating room and placed in a supine position on the operating room table. Anesthesia monitored the head, neck, airway, IV access, vital signs throughout the case. Once anesthesia was appropriately administered, the patient was placed into dorsolithotomy position was prepped and draped in usual sterile fashion. The cystoscope was inserted through the urethra under direct visualization into the urinary bladder. The indwelling right ureteral stent was identified. Alongside the stent a 0.035 Glidewire was inserted and the stent was removed. Using the semirigid ureteroscope, the right ureter was intubated and the ureteroscope was advanced carefully the farthest it would easily go and no stone was identified. The ureteroscope was removed, and a second 0.035 Glidewire was placed alongside the first. The flexible ureteroscope was then advanced over the wire all the way into the renal pelvis without difficulty. Each calyx was directly visualized and no stones were identified. The entire length of the ureter was directly visualized finding no abnormalities. The ureteroscope and the wires were then removed. The patient's bladder was then emptied and the case was terminated. She was awakened and taken to the recovery room in good condition. There were no complications during this procedure. Complications None Admit VTE Documentation VTE Present on Admission: Yes VTE Mechan Device Prophylaxis: SCD's VTE Pharm Prophylaxis ordered?: No Reason prophylaxis not ordered:: Treatment Not Indicated
[2023-01-27 10:48] LABS: Bedside Glucose 91 mg/dL (74-106)
--- NOTE | 2023-01-27 10:49 | DCINST_ITS ---
Discharge Instructions Diet Discharge Diet: No restrictions Activity Discharge Activity: Return to Normal Activity Dressing / Incision Call your doctor if you observe: Fever of 101 or Higher, Inability to urinate and Inability to have a bowel movement Follow Up Care Please Follow Up With: Buffy Gay MD When: The office will call tomorrow to make arrangements for referral Test Results: Test results from this visit will be discussed in further detail at your follow- up appointment, if applicable. Discharge Plan Admission Attending Provider: Buffy Gay Primary Care Provider: Hieu Gonzalez Discharge Orders/Prescriptions Prescriptions: New oxycodone-acetaminophen [Percocet] 5-325 mg tablet 1 tab PO Q8H PRN (Reason: pain) 3 Days Qty: 10 0RF phenazopyridine [Pyridium] 200 mg tablet 200 mg PO TID PRN PRN (Reason: Bladder Spasms) 7 Days Qty: 30 0RF Continued metformin 500 mg tablet 500 mg PO BID Patient Comments: TAKE 1 TABLET BY MOUTH 2)TIMES A DAY DIRECTEDS fenofibrate nanocrystallized 145 mg tablet 1 tablet PO .supper omega-3 acid ethyl esters 1 gram capsule 1 cap PO QHS telmisartan 40 mg tablet 40 mg PO DAILY amlodipine 5 mg tablet 5 mg PO DAILY clonazepam 1 mg tablet 1 mg PO BID PRN (Reason: anxiety) Qty: 60 1RF gabapentin 300 mg capsule 300 mg PO QHS Qty: 30 1RF potassium chloride 20 mEq tablet extended release 15 meq PO BID levothyroxine 25 mcg tablet 50 mcg PO DAILY sertraline 100 mg tablet 100 mg PO QHS colestipol 1 gram tablet 2 g PO BID Qty: 60 11RF lurasidone 120 mg tablet See Rx Instructions .ROUTE .COMPLEX Qty: 30 2RF Dose Instruction: TAKE 1 TABLET BY MOUTH EVERY NIGHT AT BEDTIME, MUST ADMINISTER WITH FOOD (at least 350 calories) Rx Instructions: TAKE 1 TABLET BY MOUTH EVERY NIGHT AT BEDTIME, MUST ADMINISTER WITH FOOD (at least 350 calories) Referrals / Follow Up: Hieu Gonzalez MD [Primary Care Provider] - Disposition Disposition (needs filled in before D/C Order can be placed): Home, Self Care
[2023-01-27] MEDS: Cefazolin 2 GM in 0.9% Normal Saline 100 ML IV (11:15)
[2023-01-27 11:54] VITALS: BP 100/59; BP 103/72; PULSE 88; RESP 12; TEMP 36.3; O2SAT 99
[2023-01-27 12:00] VITALS: BP 103/59; BP 103/72; PULSE 88; RESP 16; O2SAT 98
[2023-01-27 12:15] VITALS: BP 103/57; BP 103/72; PULSE 84; RESP 16; TEMP 36.2; O2SAT 100
[2023-01-27 12:20] LABS: Bedside Glucose 76 mg/dL (74-106)
[2023-01-27 12:23] VITALS: BP 103/72; BP 106/62; PULSE 81; RESP 16; TEMP 36.2; O2SAT 100
[2023-01-27 12:52] VITALS: BP 103/72
== END 2023-01-27 12:52 | disposition home or self-care (01) ==
LOC: SDC 09:46 → AC 09:47
PROVIDERS: PCP Family Medicine; Referring Provider Urology; Visit Provider Urology
PROC: 0TJ98ZZ Inspection of Ureter, Via Natural or Artificial Opening Endoscopic (ICD-10-PCS; CPT 52352; principal; 2023-01-27 11:15)
DX: N20.1 Calculus of ureter (principal); F31.81 Bipolar II disorder; E11.9 Type 2 diabetes mellitus without complications; I10 Essential (primary) hypertension; Z87.440 Personal history of urinary (tract) infections; F41.9 Anxiety disorder, unspecified; K52.9 Noninfective gastroenteritis and colitis, unspecified; E07.9 Disorder of thyroid, unspecified
CPT/HCPCS: 52310; 00910; 76000; 81025; 82962; J7120; J2405

== ENCOUNTER → 2023-03-08 | Outpatient (CLI) | payer OTHER, SELFPAY ==
[2023-03-08 18:09] LABS: Anion Gap 6 (5-15); BUN 23 mg/dL (7-18); BUN/Creat Ratio 16.8 RATIO (10-20); Calcium,Total 9.1 mg/dL (8.5-10.1); Chloride 104 mmol/L (98-107); Creatinine, Serum 1.37 mg/dL (0.55-1.02); EST Glomerular Filtration Rate 45 mL/min (>60); Est Glom Filt Rate - Afr Amer 54 mL/min (>60); Ferritin 178 ng/mL (8-252); Glucose 80 mg/dL (74-106); Iron 26 ug/dL (50-170); Iron Binding Capacity,Total 487 ug/dL (250-450); Magnesium 2.6 mg/dL (1.6-2.6); Potassium 3.8 mmol/L (3.5-5.1); Sodium Level 135 mmol/L (136-145)
== END | disposition home or self-care (01) ==
PROVIDERS: PCP Family Medicine; Visit Provider Family Medicine
DX: G47.62 Sleep related leg cramps (principal)
CPT/HCPCS: 36415; 80048; 82728; 83540; 83550; 83735

== ENCOUNTER 2023-03-25 16:09 | Inpatient (IN) | payer OTHER, SELFPAY ==
[2023-03-25] VITALS (11 sets, daily range): BP systolic 83–104; BP diastolic 39–69; PULSE 95–120; RESP 12–18; TEMP 36.5–37.6; O2SAT 95–100; BMI 33.7
--- NOTE | 2023-03-25 09:12 | RAD_ITS ---
INDICATION: PREOP EXAMINATION/TECHNIQUE: X-RAY - XR Abdomen 1 View COMPARISON: CT abdomen and pelvis 12/14/2022 FINDINGS: Supine view. Bulky lobular calcifications consistent with large staghorn calculus left kidney. Small calcifications in the pelvis likely phleboliths. The bowel gas pattern is normal. Included lung bases are clear. RAD/Abdomen Single View IMPRESSION: Staghorn calculus left kidney. Non-obstructive bowel gas pattern. Electronically Signed: Sailaja Arizmendi MD at 7:21 EDT ,
[2023-03-25] MEDS: Lactated Ringers 1,000 ML 15 ML IV ×2 (09:35→16:48)
[2023-03-25 09:36] LABS: Internal QC Validated? YES +Cl - CLEAR BKGD; Pregnancy, Urine Negative Negative; Record Kit Lot#,Urine Preg HCG0000667200
[2023-03-25 10:02] LABS: Bedside Glucose 96 mg/dL (74-106)
[2023-03-25] MEDS: Cefazolin 2 GM in 0.9% Normal Saline (100mL Bag) 100 ML IV (11:30)
--- NOTE | 2023-03-25 11:50 | RAD_ITS ---
PROCEDURE: Right percutaneous nephrolithotomy. DATE OF EXAMINATION: March 25, 2023. INDICATION: Female, 42 years old. Right ureteral calculus. FLUOROSCOPY TIME (if supplied): (1218 seconds) minutes/seconds. 554 mGy RAD/Fluoroscopy 1 Hr or Less IMPRESSION: Intraoperative imaging provided for right nephrolithotomy. Electronically Signed: Stepan Birmingham MD at 9:39 EDT ,
--- NOTE | 2023-03-25 16:14 | DCINST_ITS ---
Discharge Instructions Diet Discharge Diet: No restrictions Activity Discharge Activity: Return to Normal Activity and May Not Drive (while taking narcotic pain medications.) Dressing / Incision Call your doctor if you observe: Fever of 101 or Higher Follow Up Care Please Follow Up With: Stephen Durham MD When: Call [phone] for an appointment Test Results: Test results from this visit will be discussed in further detail at your follow- up appointment, if applicable. Discharge Plan Admission Primary Reason for Your Visit: Percutaneous removal of left kidney stones multiple complicated Attending Provider: Stephen Durham Primary Care Provider: Hieu Gonzalez Discharge Orders/Prescriptions Prescriptions: New oxycodone 5 mg tablet 5 mg PO Q6H PRN (Reason: pain) 7 Days Qty: 14 0RF docusate sodium [Colace] 100 mg capsule 100 mg PO BID Qty: 20 0RF ciprofloxacin HCl 500 mg tablet 500 mg PO BID Qty: 10 0RF Continued metformin 500 mg tablet 500 mg PO BID Patient Comments: TAKE 1 TABLET BY MOUTH 2)TIMES A DAY DIRECTEDS fenofibrate nanocrystallized 145 mg tablet 1 tablet PO .supper omega-3 acid ethyl esters 1 gram capsule 1 cap PO QHS telmisartan 40 mg tablet 40 mg PO QHS amlodipine 5 mg tablet 5 mg PO DAILY potassium chloride 20 mEq tablet extended release 15 meq PO BID levothyroxine 25 mcg tablet 50 mcg PO DAILY aspirin 81 mg capsule 81 mg PO DAILY Ozempic TH colestipol 1 gram tablet 2 g PO BID Qty: 60 11RF lurasidone 120 mg tablet See Rx Instructions .ROUTE .COMPLEX Qty: 30 2RF Dose Instruction: TAKE 1 TABLET BY MOUTH EVERY NIGHT AT BEDTIME, MUST ADMINISTER WITH FOOD (at least 350 calories) Rx Instructions: TAKE 1 TABLET BY MOUTH EVERY NIGHT AT BEDTIME, MUST ADMINISTER WITH FOOD (at least 350 calories) sertraline 100 mg tablet See Rx Instructions .ROUTE .COMPLEX Qty: 180 0RF Dose Instruction: TAKE TWO TABLETS BY MOUTH ONCE DAILY FOR DEPRESSION Rx Instructions: TAKE TWO TABLETS BY MOUTH ONCE DAILY FOR DEPRESSION gabapentin 300 mg capsule See Rx Instructions .ROUTE .COMPLEX Qty: 30 2RF Dose Instruction: TAKE 1 CAPSULE BY MOUTH AT BEDTIME Rx Instructions: TAKE 1 CAPSULE BY MOUTH AT BEDTIME clonazepam 1 mg tablet 1 mg PO BID PRN (Reason: anxiety) Qty: 60 1RF Referrals / Follow Up: iHeu Gonzalez MD [Primary Care Provider] - Stephen Durham MD [Med Staff - Active Staff] - Disposition Disposition (needs filled in before D/C Order can be placed): Home, Self Care
--- NOTE | 2023-03-25 16:14 | PCM.OPRPT ---
Report of Operation Date of Procedure: 03/25/23 Pre-Operative Diagnosis: Large branching multiple staghorn calculus Post-Operative Diagnosis: The same Surgery/Procedure Performed:: Cystoscopy left retrograde pyelogram Left percutaneous access and establishment of the nephrostomy tracts x3 Left percutaneous nephrostolithotomy x3 3 different sites upper pole midpole lower pole posterior Placement of 3 nephrostomy tubes And nephrostogram Description of Surgical Findings:: This is a 42-year-old female who has practically a complete staghorn calculus with stones occupying the upper pole midpole and lower pole system is a very complicated situation with multiple stones filling all the calyces told the patient that we will try to get as much stones as possible out today with a percutaneous approach and may not be possible to get rid of all the stones in 1 setting giving how much stones she has but she was willing to proceed she understands she may need multiple procedures to rid of her all her stones. Patient was taken back to the operating room at a smooth induction of general anesthesia she was placed in dorsolithotomy position. The urethrovaginal area prepped and draped in usual sterile fashion went into the bladder with a 21 [place]an rigid cystourethroscope I then cannulated the left ureter orifice with a wire advanced a wire up into the kidney and over this I advanced a 12 Zimbabwean ureteral balloon dilator we performed a retrograde pyelogram could see that the renal pelvis is actually empty of stones but she had stones completely in the upper pole midpole and lower pole she has stones in the lower pole anterior and posterior severity complex lots of stones total stone size is greater than 6 cm different locations making it for very difficult situation to try to rid her of all her stones in 1 surgical setting. After the ureter balloon dilator was set in place I inflated it with air to allow the ureteral balloon dilator to stay in the ureter and prevent any back loading of stones down the ureter and then left the left this in place for retrograde purposes during surgery. Patient was then transferred back to the cot and then flipped over prone facedown on the operating room table her left flank was then prepped and draped in usual sterile fashion I first started off with a mid calyx approach for the first set of stones. Using triangulation technique I was able to get to the wire and into the mid calyx it was quite difficult and after several attempts I was able to get the wire and there and then we put the wire through then over the wire put a balloon dilator balloon dilated to this site and then went in with the nephroscope and performed ultrasonic lithotripter on the site where the multiple stones were branching is able to get the entire mid calyx cleared out of all the stones and then it was difficult to find the channel into the pelvis but then at this point could not do any further work in this donut as this calyx was connected to the renal pelvis but through a very narrow infundibulum that I did not push through. We then left the nephrostomy tube and here performed a nephrostogram. I then went to an upper pole site that had a lot of fragments in the upper pole site again using the two-part trocar needle an 18-gauge needle we used triangulation technique to get the needle in place and then then we put the coil of the wire next to the stone is quite difficult to get to the wire on the stone after multiple attempts then I was successfully coiled wire and the stone we then balloon dilated the tract placed another nephrostomy tube on this tract and then went in through the intravenous tube tract that was established with the nephroscope and then encountered a very large stone pocket and then this was all removed with the ultrasonic lithotripter took a long time to get the stone fragment out and then finally it was able to get through completely cleared out this upper pole stone fragments that I could see for sure and then went into the renal pelvis through the upper pole put a wire through the nephroscope and the left the wire in place and over the wire then I placed a nephrostomy tube put 3 cc in the nephrostomy tube there was a 18 Zimbabwean catheter and then performed a nephrostogram and left the stent to let this heal and then finally we went to the lower pole site and there was 2 lower pole sites 1 looked like it was pointing anterior and when the pointed posterior I was able to get into the site the posterior site and then when he got in here there was some archie pus coming from her the lower side is obstructed and then when I get in with the nephroscope we balloon dilated the tract to the anterior lower pole site and then performed ultrasonic lithotripter and removed all of this major fragments in the lower pole site multiple branching fragments and last of all then I placed a nephrostomy tube here in the lower pole site. Nephrostogram was done contrast going into the renal pelvis and going down the ureter quite easily. I then looked at the fluoroscope and there was a last remaining fragments but this was very difficult fragment to get to it was pointed completely anterior it would not be a good axis for percutaneous access as it would transverse quite a lot kidney in order to get to it probably could cause a significant amount of bleeding so I decided not to do the last potential access to the anterior calyx this will have to be treated probably with shockwave lithotripsy and then followed up with ureteroscopy and laser and a second separate setting since this is one-sided I just could not reach with the percutaneous approach given the that the stones in the feeling in the anterior calyx that were pointed anterior with a posterior approach I thought it be too dangerous to get access to the site and was causing significant bleeding so at this point with 3 sites reached clearing out probably 75% of her fragments we decided to stop at this point and will let the leave the lower remaining fragments that were seen there is also another pocket upper pole that want to be treated as well prior with shockwave lithotripsy to clean up the remaining fragments. Then at this point the dressings were removed the 3 nephrostomy tubes were stitched in place fluffs and dressings were placed all the sponges and needles were accounted for we then performed a nephrostogram again to show a nice drainage down the ureter with no injury trauma to the ureter we removed the balloon dilator we deflated the balloon dilator and remove this left the Jones catheter in place she was taken back to the operating room this was extensively long surgery took about 5-1/2 hours to do the entire surgery and she still had remaining fragments that need to be treated in the lower pole but they are anterior as explained and therefore this will to be treated a separate setting I felt as long of surgery what to check a CBC and a BMP in the PACU to make sure we do not lose an significant mount of blood estimated blood loss is difficult to tell the craft about 250 cc but hard to tell because of all the irrigation. Surgeon: Stephen Durham Type of Anesthesia: General Drains: 3 nephrostomy tubes and jones. Estimated Blood Loss (mL): 250 Admit VTE Documentation VTE Present on Admission: No VTE Mechan Device Prophylaxis: SCD's VTE Pharm Prophylaxis ordered?: No
[2023-03-25 16:57] LABS: Hematocrit 26.2 % (37-47); Hemoglobin 7.7 g/dL (12.0-15.0); Mean Corp Hgb Conc 29.4 g/dL (32-36); Mean Corpuscular Volume 78.2 fL (81-99); Mean Platelet Vol. 8.7 fl (6.2-12.0); Platelet Count 252 K/mm3 (150-450); RBC Distribution Width CV 14.9 % (11.6-14.6); RBC Distribution Width SD 42.5 fl (35.1-43.9); Red Blood Count 3.35 M/mm3 (4.2-5.4); White Blood Count 4.1 K/mm3 (4.4-11.0)
[2023-03-25 17:07] LABS: Anion Gap 6 (5-15); BUN 24 mg/dL (7-18); BUN/Creat Ratio 16.3 RATIO (10-20); Calcium,Total 8.5 mg/dL (8.5-10.1); Chloride 112 mmol/L (98-107); Creatinine, Serum 1.47 mg/dL (0.55-1.02); EST Glomerular Filtration Rate 41 mL/min (>60); Est Glom Filt Rate - Afr Amer 50 mL/min (>60); Glucose 114 mg/dL (74-106); Sodium Level 138 mmol/L (136-145)
[2023-03-25 17:42] LABS: Bedside Glucose 86 mg/dL (74-106)
[2023-03-25] MEDS: Fenofibrate 145 MG Tablet PO (18:35)
[2023-03-25] MEDS: 0.9% Normal Saline (1000mL) 1,000 ML 125 ML IV (18:35)
[2023-03-25] MEDS: Colestipol 1 GM TABLET 2 GM PO (18:36)
[2023-03-25] MEDS: metFORMIN HCl 500 MG Tablet PO (18:36)
[2023-03-25] MEDS: Acetaminophen 325 MG Tablet PO (20:02)
[2023-03-25] MEDS: Gabapentin 300 MG Capsule PO (21:51)
[2023-03-25] MEDS: LURASIDONE HCL 60 MG TABLET 120 MG PO (21:51)
[2023-03-25] MEDS: oxyCODONE 5 MG Tablet PO (21:51)
[2023-03-25] MEDS: Docusate Sodium 100 MG Capsule 200 MG PO (21:52)
[2023-03-25] MEDS: Ciprofloxacin 400 MG/200 ML BAG 200 MG IV (21:52)
[2023-03-26] VITALS (15 sets, daily range): BP systolic 87–124; BP diastolic 50–71; PULSE 105–128; RESP 16–18; TEMP 36.6–38.6; O2SAT 92–100
[2023-03-26] MEDS: 0.9% Normal Saline (1000mL) 1,000 ML 125 ML IV ×2 (03:43→17:29)
[2023-03-26] MEDS: oxyCODONE 5 MG Tablet PO (05:39)
[2023-03-26] MEDS: Levothyroxine 50 MCG Tablet PO (05:39)
[2023-03-26] MEDS: Colestipol 1 GM TABLET 2 GM PO ×2 (05:39→16:38)
[2023-03-26] MEDS: Acetaminophen 325 MG Tablet PO ×2 (05:40→17:33)
--- NOTE | 2023-03-26 06:41 | PCM.PN.GU ---
Subjective Subjective 42-year-old female with a very large staghorn calculus status post multiple punctures to remove probably about 75% of the stones but I could not get the lower pole anterior stones because of the location she has 3 nephrostomy tubes that are draining urine slightly bloody urine is still draining she is quite painful not surprising with 3 nephrostomy tubes will add on scheduled Toradol to help with that and some Dilaudid plan to put on the schedule for tomorrow morning for ureteroscopy and laser lithotripsy to hopefully treat the remaining fragments that are in the lower pole of the anterior part of the kidney we will add her on for the schedule for tomorrow she was agreeable with this plan. We will keep nephrostomy tubes in for now Objective Data Objective Data Vital Signs: Vital Signs Temp Pulse Resp BP Pulse Ox O2 Del Method O2 Flow Rate 98.8 F 115 H 18 94/55 L 98 Nasal Cannula 1 03/26/23 05:32 03/26/23 05:32 03/26/23 05:32 03/26/23 05:32 03/26/23 05:32 03/26/23 05:32 03/26/23 05:32 Oxygen Flow Rate (L/min) 1 Oxygen Delivery Method Nasal Cannula Weight: 103.7 kg Body Mass Index (BMI) 33.7 Intake & Output: Intake and Output for Last 24 Hours 03/24/23 03/25/23 03/26/23 23:59 23:59 23:59 Intake Total 3403.25 / 3403.25 1000 / 1000 Output Total 1280 / 1280 Balance 2123.25 / 2123.25 1000 / 1000 Lab / Micro Data 03/25/23 16:30 03/25/23 16:30 Labs: Laboratory Results - last 24 hr 03/25/23 09:20: Urine Test Negative 03/25/23 09:42: POC Glucose 96 03/25/23 16:30: WBC 4.1 L, RBC 3.35 L, Hgb 7.7 L, Hct 26.2 L, MCV 78.2 L, MCH 23.0 L, MCHC 29.4 L, RDW Std Deviation 42.5, RDW Coeff of Chet 14.9 H, Plt Count 252, MPV 8.7, Sodium 138, Potassium 5.0, Chloride 112 H, Carbon Dioxide 20.0 L, Anion Gap 6, BUN 24 H, Creatinine 1.47 H, Estim Creat Clear Calc 52.10, Est GFR (MDRD) Af Amer 50 L, Est GFR (MDRD) Non-Af 41 L, BUN/Creatinine Ratio 16.3, Glucose 114 H, Calcium 8.5 03/25/23 17:25: POC Glucose 86
[2023-03-26 07:01] LABS: Hematocrit 21.9 % (37-47); Hemoglobin 6.6 g/dL (12.0-15.0); Mean Corp Hgb Conc 30.1 g/dL (32-36); Mean Corpuscular Hgb 23.2 pg (27.0-32.0); Mean Corpuscular Volume 76.8 fL (81-99); Mean Platelet Vol. 8.7 fl (6.2-12.0); Platelet Count 191 K/mm3 (150-450); RBC Distribution Width CV 15.2 % (11.6-14.6); RBC Distribution Width SD 42.1 fl (35.1-43.9); Red Blood Count 2.85 M/mm3 (4.2-5.4); White Blood Count 4.5 K/mm3 (4.4-11.0)
[2023-03-26] MEDS: Ketorolac 15 MG/ML Vial IV ×3 (07:03→17:30)
[2023-03-26 07:41] LABS: Anion Gap 7 (5-15); BUN 20 mg/dL (7-18); BUN/Creat Ratio 13.4 RATIO (10-20); Calcium,Total 7.6 mg/dL (8.5-10.1); Chloride 105 mmol/L (98-107); Creatinine, Serum 1.49 mg/dL (0.55-1.02); EST Glomerular Filtration Rate 41 mL/min (>60); Est Glom Filt Rate - Afr Amer 49 mL/min (>60); Glucose 108 mg/dL (74-106); Potassium 4.3 mmol/L (3.5-5.1); Sodium Level 134 mmol/L (136-145)
[2023-03-26] MEDS: Docusate Sodium 100 MG Capsule 200 MG PO ×2 (09:34→22:45)
[2023-03-26] MEDS: Ciprofloxacin 400 MG/200 ML BAG 200 MG IV ×2 (09:34→22:45)
[2023-03-26] MEDS: Sertraline 100 MG Tablet 200 MG PO (09:35)
--- NOTE | 2023-03-26 11:48 | CASEMGMT ---
AGAPITO COOK Assessment: Face to Face with pt for initial transition planning/care coordination assessment. RN JOYCE introduced self and role at [facility], pt voices understanding and consents to assessment. Pt is A&O x4 and answers all questions appropriately at this time. Pt lying in bed with oxygen on in no distress, and children at bedside. Care providers, pharmacy, and demographics verified/updated. Admitting Dx: perc, nephrostolithomy PCP:Carlos Specialists:Marva uro; Friend, GI; ashley Gay Preferred Pharmacy: [facility] Retail Insurance: [employer] Prescription Benefit: yes LNOK: Mikie Peters, Living Arrangements: Pt lives with and 3 children in a single story home with 3 steps to enter. Pt reports she is I in ADL's and denies concerns at home. Transportation: Pt drives self and denies concerns with transportation. DME:denies HHC/SNF: denies hx of Pt states no concerns with going home at time of dc. Pt states no further concerns/needs. CM to follow. Advised pt to ask CM if any further question/concerns/needs arise, voices understanding. Pt Goal: Home Plan: Home, follow if nephrostomy tubes are in place upon dc
[2023-03-26] MEDS: clonazePAM 1 MG Tablet PO (17:33)
[2023-03-26] MEDS: Acetaminophen 325 MG Tablet 650 MG PO (18:39)
[2023-03-26] MEDS: Gabapentin 300 MG Capsule PO (22:41)
[2023-03-26] MEDS: LURASIDONE HCL 120 MG TABLET PO (22:45)
[2023-03-27] VITALS (12 sets, daily range): BP systolic 85–130; BP diastolic 52–78; PULSE 84–112; RESP 16–18; TEMP 36.6–38; O2SAT 92–97; BMI 33.7
[2023-03-27] MEDS: Acetaminophen 325 MG Tablet 650 MG PO (00:42)
[2023-03-27] MEDS: Ketorolac 15 MG/ML Vial IV ×5 (00:43→23:28)
[2023-03-27] MEDS: 0.9% Normal Saline (1000mL) 1,000 ML 125 ML IV ×3 (02:20→20:33)
[2023-03-27] MEDS: Levothyroxine 50 MCG Tablet PO (05:59)
[2023-03-27] MEDS: Colestipol 1 GM TABLET 2 GM PO ×2 (05:59→17:45)
[2023-03-27 07:17] LABS: Absolute Lymphocyte Count 0.29 X10^3/uL (0.83-4.51); Basophil# 0.01 X10^3/uL; Basophil% 0.4 % (0-1); Eosinophil# 0.12 X10^3/uL; Eosinophils% 4.5 % (0-5); Hematocrit 22.9 % (37-47); Hemoglobin 7.2 g/dL (12.0-15.0); Lymphocyte # 0.29 X10^3/ul (0.83-4.51); Lymphocyte % 10.9 % (19-41); Mean Corp Hgb Conc 31.4 g/dL (32-36); Mean Corpuscular Hgb 24.5 pg (27.0-32.0); Mean Corpuscular Volume 77.9 fL (81-99); Mean Platelet Vol. 8.7 fl (6.2-12.0); Monocyte# 0.19 X10^3/uL; Monocyte% 7.2 % (0-10); NRBC Flagged by Analyzer 0 % (0-5); Neutrophil # 2.04 X10^3/uL (2.7-7.7); POSITIVE DIFFERENTIAL YES; Platelet Count 153 K/mm3 (150-450); RBC Distribution Width SD 42.7 fl (35.1-43.9); Red Blood Count 2.94 M/mm3 (4.2-5.4); White Blood Count 2.7 K/mm3 (4.4-11.0)
[2023-03-27 07:21] LABS: International Normalized Ratio 1.3
[2023-03-27 07:40] LABS: Differential Indicated SCAN CRITERIA MET
[2023-03-27 07:44] LABS: Thyroid Stim Hormone (TSH) 1.45 uIU/mL (0.358-3.74)
--- NOTE | 2023-03-27 07:56 | PN.URO_ITS ---
Subjective Subjective Postop day #2 status post a left percutaneous nephrostolithotomy multiple punctures multiple nephrostomy sites for complicated complete staghorn. Unfortunate was not able to get to the anterior calyces given the location would be too dangerous so I did not do a puncture to the anterior calyx. Even with the 3 puncture the patient did have an of bleeding that she ended up needing 2 units of blood yesterday. She did start off anemic so she had little reserve she had a chronic anemia from a factor deficiency a ferritin. Now that she is been given a blood transfusion her blood pressure is much better she is cl inically stable she did have a fever after the transfusion but this resolved she looks better this morning all 3 nephrostomy tubes are putting out a fairly good amount of urine. Plan to take her to surgery today to finish lasering off the anterior calyx stones and probably will be removing 2-3 nephrostomy tubes and then probably replacement of the nephrostomy tubes with a smaller nephrostomy catheter that she may need to go home with to let this kidney heal. We will keep her in the hospital still we will get a go to surgery today to laser the remaining fragments that could not get percutaneously Objective Data Objective Data Vital Signs: Vital Signs Temp Pulse Resp BP Pulse Ox O2 Del Method O2 Flow Rate 98.4 F 108 H 18 112/68 95 Room Air 1 03/27/23 06:54 03/27/23 06:54 03/27/23 06:54 03/27/23 06:54 03/27/23 06:54 03/27/23 06:54 03/26/23 18:45 Oxygen Flow Rate (L/min) 1 Oxygen Delivery Method Room Air Weight: 103.7 kg Body Mass Index (BMI) 33.7 Intake & Output: Intake and Output for Last 24 Hours 03/25/23 03/26/23 03/27/23 23:59 23:59 23:59 Intake Total 3403.25 / 3403.25 7216.66 / 7216.66 1200 / 1200 Output Total 1280 / 1280 8125 / 8125 900 / 900 Balance 2123.25 / 2123.25 -908.34 / -908.34 300 / 300 Lab / Micro Data 03/27/23 06:02 03/26/23 06:07 Labs: Laboratory Results - last 24 hr 03/26/23 09:07: Blood Type A NEGATIVE, Antibody Screen NEGATIVE, Crossmatch See Detail 03/27/23 06:02: WBC 2.7 L, RBC 2.94 L, Hgb 7.2 L, Hct 22.9 L, MCV 77.9 L, MCH 24.5 L, MCHC 31.4 L, RDW Std Deviation 42.7, RDW Coeff of Chet 15.0 H, Plt Count 153, MPV 8.7, Immature Gran % (Auto) 0.000, Neut % (Auto) 77.0 H, Lymph % (Auto) 10.9 L, Schleicher % (Auto) 7.2, Eos % (Auto) 4.5, Baso % (Auto) 0.4, Absolute Neuts (auto) 2.0, Absolute Lymphs (auto) 0.29 L, Nucleated RBC % 0, PT 16.0 H, INR 1 .3, TSH 1.45
--- NOTE | 2023-03-27 08:11 | NURSING ---
0731 patient down to surgery- report given by Agnes ALTMAN. IV intact and IVF running. jones intact and draining J Norberto ALTMAN
[2023-03-27] MEDS: Ciprofloxacin 400 MG/200 ML BAG 200 MG IV ×2 (08:24→21:46)
[2023-03-27 09:41] LABS: Differential Comment SCANNED
--- NOTE | 2023-03-27 09:51 | CALC_PTH ---
PATIENT: MARIIA DAVIDSON LOC: MS3 U#:[id number] AGE/SX: 42/F ROOM: UT313 RE03/25/[address]: Dr. Stephen Durham MD : 1980 BED: 1 DIS: 03/28/2023 SPEC #: [id number] RECD: 03/28/23 07:36 STATUS: CASH GALARZA #: [id number] VICTORINA: 03/27/23 09:[address]: Stephen Durham DEPT: SURGICAL PATHOLOGY RECD BY: Patricia Oviedo ENTERED: 03/28/23 07:37 SP TYPE: Calculi OTHR DR: Dr. Hieu Gonzalez MD Tissues: CALCULI Procedures: Surgery Specimen Level I HEADER OPERATION: Cystoscopy, left ureteroscopy, retrograde pyelogram PRE-OP DIAGNOSIS: Left renal calculi TISSUE SUBMITTED: Left renal calculi GROSS DIAGNOSIS Fragments of stone, clinically left renal calculi. SJ:key 03/29/2023 COMMENT The calculi are submitted in its entirety for chemical stone analysis. The results from this study will be reported separately. GROSS DESCRIPTION Received without fixative labeled with the patient's name and designated left renal calculi. The specimen consists of multiple fragments of rolon-brown stone mixed with yellowish fluid measuring in aggregate 1.0 x 1.0 x 0.2 cm. The entire specimen is submitted for stone analysis. / key 03/28/2023 CPT: 64845
--- NOTE | 2023-03-27 09:59 | OP.PCM_ITS ---
Report of Operation Date of Procedure: 03/27/23 Pre-Operative Diagnosis: Left staghorn calculus stage related procedure Post-Operative Diagnosis: The same laser remaining fragments in the anterior calyx lower pole Surgery/Procedure Performed:: Is a 42-year-old female had a staghorn calculus with significant fragments feeling upper pole midpole lower pole both anterior and posterior calyx she underwent a percutaneous nephrostolithotomy that removed about 75 to 80% of the fragments but she had some fragments in the lower pole anterior calyx that were not able to be reached through a percutaneous approach so today took her to surgery and working to laser the stones out to finish lasering out her staghorn calculus. Patient was taken back to the operating room after smooth induction of general anesthesia she was placed first in dorsolithotomy position with by then we put her in the lateral flank position this allowed for the left side up and allowed access to the nephrostomy tubes during the during the procedure. The patient was then prepped and draped in usual sterile fashion went to the bladder with a 21 Tamazight rigid cystourethroscope went inside the bladder and cannulated the left ureteral orifice advanced a wire up the ureter and then over the wire I placed a access sheath to get access to the kidney for flexible ureteroscopy once getting into inside the kidney with the ureteroscope the nephrostomy tubes are blocking on the main entrances so I removed the second and third nephrostomy tube and then I remove the upper pole nephrostomy tube I did put a wire through this just in case I wanted to put the nephrostomy tube back in over this wire and left this wire for the case I then went in with the flexible ureteroscope I found the lower calyx anteriorly pointed and I lasered the stone out and as I lasered send the patient was tilted anteriorly these fragments and migrated to the pelvis after the stone was lasered all the fragments migrated into the renal pelvis then I lasered extensively in the renal pelvis took about 2 hours of laser everything and at the end I did a retrograde pyelogram we also did nephrostogram at the beginning the case and then with a retrograde pyelogram I could see the the upper pole midpole lower pole calyx all the calyces were inspected as best as possible I could not find any other major pockets of fragments under fluoroscopy and under x-ray that I could tell toys possible that the stone pocket and a fragment that was covered with blood just could not see or that was not visible under x-ray but at this point I was sure that I think I got 90 to 95% of the stones finished lasered out the stones and renal pelvis we then removed last wire all the nephrostomy tubes were removed I then did a retrograde pyelogram to the delineate the anatomy and then placed a stent from the renal pelvis down to the bladder patient bladder was drained catheter was removed and patient anesthetic was reversed he was taken back to PACU in good condition we will keep overnight for observation hopefully home tomorrow with the stent Surgeon: Stephen Durham Type of Anesthesia: General Drains: Stent 6fr x 26cm left Estimated Blood Loss (mL): 0 Admit VTE Documentation VTE Present on Admission: No VTE Mechan Device Prophylaxis: SCD's VTE Pharm Prophylaxis ordered?: No
[2023-03-27] MEDS: Lactated Ringers 1,000 ML 15 ML IV (10:10)
[2023-03-27 10:58] LABS: Bedside Glucose 108 mg/dL (74-106)
[2023-03-27] MEDS: metFORMIN HCl 500 MG Tablet PO ×2 (11:29→17:45)
[2023-03-27] MEDS: Sertraline 100 MG Tablet 200 MG PO (11:31)
[2023-03-27] MEDS: Fenofibrate 145 MG Tablet PO (17:45)
[2023-03-27] MEDS: Gabapentin 300 MG Capsule PO (21:39)
[2023-03-27] MEDS: Docusate Sodium 100 MG Capsule 200 MG PO (21:39)
[2023-03-27] MEDS: LURASIDONE HCL 120 MG TABLET PO (21:46)
[2023-03-28 02:34] VITALS: BP 115/80; PULSE 95; RESP 18; TEMP 36.6; O2SAT 97
[2023-03-28 05:25] VITALS: BP 114/80; PULSE 99; RESP 18; TEMP 36.6; O2SAT 95
[2023-03-28] MEDS: Ketorolac 15 MG/ML Vial IV (05:31)
[2023-03-28] MEDS: Colestipol 1 GM TABLET 2 GM PO (05:31)
[2023-03-28] MEDS: Levothyroxine 50 MCG Tablet PO (05:31)
[2023-03-28] MEDS: 0.9% Normal Saline (1000mL) 1,000 ML 125 ML IV (05:32)
[2023-03-28] MEDS: metFORMIN HCl 500 MG Tablet PO (07:49)
[2023-03-28] MEDS: Sertraline 100 MG Tablet 200 MG PO (07:49)
[2023-03-28] MEDS: clonazePAM 1 MG Tablet PO (07:49)
--- NOTE | 2023-03-28 07:59 | PCM.DC.SUM ---
Providers Date of Admission: 03/25/23 Date of Discharge: 03/28/23 Primary Care Physician: Dr. Hieu Gonzalez MD Reason For Visit: Percutaneous,Nephrostolithomy Medications at Discharge Home Medications potassium chloride 20 mEq tablet,extended release 15 meq PO BID supplement 12/13/21 levothyroxine 25 mcg tablet 50 mcg PO DAILY thyroid 07/06/22 metformin 500 mg tablet 500 mg PO BID glucose 08/19/22 amlodipine 5 mg tablet 5 mg PO DAILY blood pressure 09/07/22 fenofibrate nanocrystallized 145 mg tablet 1 tablet PO .supper . 10/20/22 omega-3 acid ethyl esters 1 gram capsule 1 cap PO QHS not taking 10/20/22 telmisartan 40 mg tablet 40 mg PO QHS blood pressure 10/20/22 colestipol 1 gram tablet 2 g (2 x 1 gram) PO BID . #60 tabs 12/22/22 lurasidone 120 mg tablet See Rx Instructions .Route .COMPLEX #30 tabs 01/20/23 sertraline 100 mg tablet See Rx Instructions .Route .COMPLEX #180 TABLETS 02/21/23 Ozempic TH weight loss 03/11/23 aspirin 81 mg capsule 81 mg PO DAILY 03/11/23 gabapentin 300 mg capsule See Rx Instructions .Route .COMPLEX #30 caps 03/15/23 clonazepam 1 mg tablet 1 mg PO BID PRN anxiety #60 tabs 03/24/23 ciprofloxacin HCl 500 mg tablet 500 mg PO BID #10 tabs 03/25/23 docusate sodium 100 mg capsule (Colace) 100 mg PO BID #20 caps 03/25/23 oxycodone 5 mg tablet 5 mg PO Q6H PRN pain 7 days #14 tabs 03/25/23 Hospital Course Summary of Care Provided Hospital Course: Patient underwent percutaneous nephrostolithotomy with 3 nephrostomy tubes there was a fourth pocket anterior that could not be reached so she went back to surgery 2 days later for ureteroscopy and laser lithotripsy of the stones at that point I removed the 3 nephrostomy tubes and placed a stent she will go home today with a stent and follow-up in 2 weeks for stent removal Physical Exam Const alert and oriented x3 General Appearance: cooperative HEENT normocephalic, head/scalp atraumatic, EAC's normal and TM's normal bilaterally Eyes PERRL and EOMs intact bilaterally Pupil: sluggish Neck no lymphadenopathy, supple and no JVD General: trachea midline Lymph Lymphatic: no lymphadenopathy noted, lymphedema and lymphadenopathy Resp normal respiratory effort, normal air movement and clear to auscultation bilaterally Cardio regular rate, regular rhythm and peripheral pulses 2+ throughout GI soft to palpation, non-tender and non-distended Extremity normal capillary refill and no clubbing, cyanosis or edema General Extremity: no tenderness to palpation of joints or extremities Skin no rashes or lesions noted General Skin Exam: turgor normal Lesions: no lesions Rashes: no rashes Neuro CN's II-XII intact bilaterally Speech: speech normal Motor Exam: strength 5/5 throughout; Negative for general weakness Psych thought process normal, cooperative and affect normal Appearance: appropriate Weight / BMI Weight Weight: 103.7 kg Body Mass Index (BMI) 33.7 ABG / Lab / Microbiology Data 03/27/23 06:02 03/26/23 06:07 Laboratory: Laboratory Results - last 24 hr 03/27/23 06:02: Differential Comment SCANNED, Diff Path Review October03/27/23 10:33: POC Glucose 108 H D/C Instructions Discharge Diet: No restrictions Call your doctor if you observe: Fever of 101 or Higher Please Follow Up With: Stephen Durham MD When: Call [phone] for an appointment Meaningful Use Info Meaningful Use Diagnoses (Choose all that apply): None applicable Discharge Plan Admission Admit Date/Time: 03/25/23 16:09 Primary Reason for Your Visit: Percutaneous removal of left kidney stones multiple complicated Attending Provider: Stephen Durham Primary Care Provider: Hieu Gonzalez Discharge Orders/Prescriptions Prescriptions: New oxycodone 5 mg tablet 5 mg PO Q6H PRN (Reason: pain) 7 Days Qty: 14 0RF docusate sodium [Colace] 100 mg capsule 100 mg PO BID Qty: 20 0RF ciprofloxacin HCl 500 mg tablet 500 mg PO BID Qty: 10 0RF Continued metformin 500 mg tablet 500 mg PO BID Patient Comments: TAKE 1 TABLET BY MOUTH 2)TIMES A DAY DIRECTEDS fenofibrate nanocrystallized 145 mg tablet 1 tablet PO .supper omega-3 acid ethyl esters 1 gram capsule 1 cap PO QHS telmisartan 40 mg tablet 40 mg PO QHS amlodipine 5 mg tablet 5 mg PO DAILY potassium chloride 20 mEq tablet extended release 15 meq PO BID levothyroxine 25 mcg tablet 50 mcg PO DAILY aspirin 81 mg capsule 81 mg PO DAILY Ozempic TH Patient Comments: Patient taking compound similar not sure what dose colestipol 1 gram tablet 2 g PO BID Qty: 60 11RF lurasidone 120 mg tablet See Rx Instructions .ROUTE .COMPLEX Qty: 30 2RF Dose Instruction: TAKE 1 TABLET BY MOUTH EVERY NIGHT AT BEDTIME, MUST ADMINISTER WITH FOOD (at least 350 calories) Rx Instructions: TAKE 1 TABLET BY MOUTH EVERY NIGHT AT BEDTIME, MUST ADMINISTER WITH FOOD (at least 350 calories) sertraline 100 mg tablet See Rx Instructions .ROUTE .COMPLEX Qty: 180 0RF Dose Instruction: TAKE TWO TABLETS BY MOUTH ONCE DAILY FOR DEPRESSION Rx Instructions: TAKE TWO TABLETS BY MOUTH ONCE DAILY FOR DEPRESSION gabapentin 300 mg capsule See Rx Instructions .ROUTE .COMPLEX Qty: 30 2RF Dose Instruction: TAKE 1 CAPSULE BY MOUTH AT BEDTIME Rx Instructions: TAKE 1 CAPSULE BY MOUTH AT BEDTIME clonazepam 1 mg tablet 1 mg PO BID PRN (Reason: anxiety) Qty: 60 1RF Referrals / Follow Up: Hieu Gonzalez MD [Primary Care Provider] - Stephen Durham MD [Med Staff - Active Staff] - Disposition Discharge Orders: Discharge Patient (Routine); Ordered 03/28/23 Ordered By: Dr. Stephen Durham
[2023-03-28 08:00] VITALS: BP 131/86; PULSE 102; RESP 18; TEMP 36.7; O2SAT 95
[2023-03-28 08:12] VITALS: O2SAT 93
--- NOTE | 2023-03-28 09:26 | PHA.DC.MC.R ---
Pharmacy [facility] has performed discharge medication reconciliation and counseling for this patient. The patient's discharge medication list was reviewed for discrepancies and discrepancies were resolved. The patient was counseled on the following discharge medications and changes in medications for homegoing were reviewed. The Reason for Use, instructions for use, and potential side effects were reviewed for all new medications. The patient's questions regarding all of their medications were answered. 1. Ciprofloxacin 500 mg PO BID 2. Oxycodone 5 mg PO Q6H PRN pain 3. Docusate 100 mg PO BID The patient was able to verbally demonstrate an understanding of their discharge medications. Medications at Discharge Home Medications potassium chloride 20 mEq tablet,extended release 15 meq PO BID supplement 12/13/21 levothyroxine 25 mcg tablet 50 mcg PO DAILY thyroid 07/06/22 metformin 500 mg tablet 500 mg PO BID glucose 08/19/22 amlodipine 5 mg tablet 5 mg PO DAILY blood pressure 09/07/22 fenofibrate nanocrystallized 145 mg tablet 1 tablet PO .supper . 10/20/22 omega-3 acid ethyl esters 1 gram capsule 1 cap PO QHS not taking 10/20/22 telmisartan 40 mg tablet 40 mg PO QHS blood pressure 10/20/22 colestipol 1 gram tablet 2 g (2 x 1 gram) PO BID . #60 tabs 12/22/22 lurasidone 120 mg tablet See Rx Instructions .Route .COMPLEX #30 tabs 01/20/23 sertraline 100 mg tablet See Rx Instructions .Route .COMPLEX #180 TABLETS 02/21/23 Ozempic TH weight loss 03/11/23 aspirin 81 mg capsule 81 mg PO DAILY 03/11/23 gabapentin 300 mg capsule See Rx Instructions .Route .COMPLEX #30 caps 03/15/23 clonazepam 1 mg tablet 1 mg PO BID PRN anxiety #60 tabs 03/24/23 ciprofloxacin HCl 500 mg tablet 500 mg PO BID #10 tabs 03/25/23 docusate sodium 100 mg capsule (Colace) 100 mg PO BID #20 caps 03/25/23 oxycodone 5 mg tablet 5 mg PO Q6H PRN pain 7 days #14 tabs 03/25/23
[2023-03-29 09:55] LABS: Pathologist Review Reviewed
[2023-04-06 09:50] LABS: Source LEFT KIDNEY
== END 2023-03-28 09:27 | disposition home or self-care (01) | DRG 694 ==
LOC: SDC 16:46 → MS3 16:46
PROVIDERS: Anesthesiology; Admitting Provider Urology; PCP Family Medicine; Referring Provider Urology; Visit Provider Urology
PROC: 0TC18ZZ Extirpation of Matter from Left Kidney, Via Natural or Artificial Opening Endoscopic (ICD-10-PCS; principal; 2023-03-25 10:45)
PROC: 0TP580Z Removal of Drainage Device from Kidney, Via Natural or Artificial Opening Endoscopic (ICD-10-PCS; CPT 52353; principal; 2023-03-27 08:00)
DX: N20.0 Calculus of kidney (principal); D64.9 Anemia, unspecified; E11.9 Type 2 diabetes mellitus without complications; Z79.82 Long term (current) use of aspirin; Z87.442 Personal history of urinary calculi; Z90.49 Acquired absence of other specified parts of digestive tract
CPT/HCPCS: 36415; 74018; 76000; 80048; 81025; 82360; 82962; 84443; 85025; 85027; 85610; 86644; 86850; 86900; 86901; 86920; 86922; 88300; 94668; J7030; J7120; P9016; P9040; C1758; C1769; C2617; J0744; J2405

== ENCOUNTER → 2023-04-25 | Outpatient (CLI) | payer OTHER, SELFPAY ==
--- NOTE | 2023-04-25 13:50 | RAD_ITS ---
STUDY: X-RAY - ABDOMEN/PELVIS REASON FOR EXAM: Female, 42 years old. CALCULUS OF KIDNEY TECHNIQUE: Single AP view of the abdomen / pelvis. COMPARISON: 03/25/2023 FINDINGS: Normal visualized lung bases. There is an unremarkable bowel gas pattern. Suspect splenomegaly. Multiple calcific opacities overlying the left kidney consistent with multiple left renal stones. No definite ureteral stone. Normal soft tissue structures. Normal visualized osseous structures. RAD/Abdomen Single View IMPRESSION: 1. Multiple left renal stones. No definite ureteral stone. 2. Suspect splenomegaly. Electronically Signed: Travis Cooper MD at 23:30 EST ,
== END | disposition home or self-care (01) ==
LOC: RAD 13:44
PROVIDERS: PCP Family Medicine; Referring Provider Urology; Visit Provider Urology
DX: N20.0 Calculus of kidney (principal)
CPT/HCPCS: 74018

== ENCOUNTER 2023-05-14 18:49 | Emergency (ER) | payer OTHER, SELFPAY ==
[2023-05-14 18:51] VITALS: BP 110/73; PULSE 125; RESP 16; TEMP 37.6; O2SAT 98; BMI 36.1
--- NOTE | 2023-05-14 19:11 | CT_ITS ---
INDICATION: Pain EXAMINATION: CT ABDOMEN AND PELVIS WITHOUT CONTRAST - CT Abdomen And Pelvis W/O Contrast Injection TECHNIQUE: Helically acquired images were obtained of the abdomen and pelvis without oral or IV contrast. A radiation dose optimization technique was used for this scan. IV Contrast dosage and agent: None. Oral contrast: None. COMPARISON: December 14, 2022 CT abdomen and pelvis FINDINGS: LOWER CHEST: Lung bases are clear. No cardiomegaly or pericardial effusion. LIVER: Upper limit normal size. No focal mass. Normal contour. GALLBLADDER AND BILIARY TREE: Absent gallbladder. No gallbladder fossa fluid or inflammatory changes. No intra- or extrahepatic biliary ductal dilation. PANCREAS: No focal cystic or solid mass. SPLEEN: Enlarged. ADRENAL GLANDS: No nodules. KIDNEYS, URETERS and BLADDER: Interval resolution of previously seen right hydronephrosis and distal ureteral stone and perinephric stranding. New moderate left perinephric stranding density and fragmentation of previously seen staghorn calculus left kidney. There is a double-J ureteral stent on the left. Urinary bladder is normal in appearance. PERITONEUM: No ascites or free air. No other fluid collection. BOWEL: Hyperdensity within the appendix suggesting appendicoliths. No wall thickening, enlargement or regional inflammatory changes to suggest appendicitis. Cecum is seen in the mid right abdomen, previously seen in the lower left of midline abdomen; mobile cecum. No focal inflammatory changes. LYMPH NODES: Prominent periaortic 1.7 x 2.6 cm, left periaortic lymph node just below the left renal vein. Left periaortic retroperitoneal lymph node unchanged. A few subcentimeter regional lymph nodes also present. VESSELS: Aorta is non-dilated. REPRODUCTIVE ORGANS: Normal. ABDOMINAL WALL: Small fat filled umbilical hernia BONES: No lytic or blastic abnormality. CT/Abdomen/Pelvis without Cont IMPRESSION: 1. Moderate, new left perinephric stranding density with interval fragmentation of Staghorn calculus left kidney and left double-J ureteral stent placement. No hydronephrosis. 2. Interval resolution of previously seen right-sided hydronephrosis, perinephric stranding density and distal right ureteral stone. 3. Splenomegaly. 4. Probable mild hepatomegaly. 5. Mobile cecum. 6. Left periaortic subcentimeter lymph nodes and a 1.7 x 2.6 cm lymph node unchanged compared to December 14, 2022. Electronically Signed: Armin Travis DO at 21:19 EST ,
--- NOTE | 2023-05-14 19:32 | EDS_ITS ---
<Statement entered by Jessy Villalta MD - 05/15/23 00:13> I have personally performed a face to face assessment of the patient and have reviewed the NANCY Note. Patient presents secondary to low back pain and fever. She had lithotripsy yesterday with Dr. Durham. She does have a stent in place. Patient states that she currently is on Cipro for UTI. She states last evening she had a fever and call Dr. Durham and he advised her to to continue her Cipro. Today her fever has continued and is only briefly improved with Tylenol. She called him again and he advised she come in to be checked out. Patient sitting upright in bed in no acute distress. Nontoxic-appearing. Head and neck examination unremarkable. Heart is regular rate and rhythm. Lung sounds are clear. Abdomen is soft with no focal tenderness. CBC and chemistry studies largely unremarkable. Urinalysis does reveal rare bacteria with positive nitrites and white cells. CT flank reveals some inflammation of the kidney. Previous noted hydronephrosis is resolved. Patient was given IV fluids here along with a dose of IV Rocephin. Urine culture was sent. We did speak with Dr. Durham and updated him on her current findings. He did want to ensure we have given her IV fluids here for hydration and wishes her to continue the p.o. Cipro. Return instructions given. HPI History of Present Illness Chief Complaint: Flank Pain Narrative Narrative: Patient is a 42-year-old female with history of fatty liver due to alcoholism, history of left-sided kidney stones, hypertension, hyperlipidemia, prediabetes, bipolar who presents to the emergency department with left lower back pain, feve r and chills. Patient had a lithotripsy completed with Dr. Durham. Patient developed a fever after the surgery, patient HR fevers been high as 101.2. She is currently on Cipro called in by Dr. Durham. Patient she is still having fevers, pain she is here for evaluation [facility] Medical History Alcohol abuse Alcoholic hepatitis Anemia Anxiety Bipolar 1 disorder Bipolar 2 disorder Breast lump Chronic diarrhea CRVO (central retinal vein occlusion) Decreased circulation Diabetes Diarrhea Fatty liver Hypertension Insomnia Leg cramps Migraine headache Non-smoker PONV (postoperative nausea and vomiting) Right ureteral calculus Thyroid disease Home Medications potassium chloride 20 mEq tablet,extended release 20 meq PO BID supplement 12/13/21 [History Last Taken 03/24/23] levothyroxine 25 mcg tablet 50 mcg PO DAILY thyroid 07/06/22 [History Last Taken 03/24/23] metformin 500 mg tablet 500 mg PO BID glucose 08/19/22 [History Last Taken 03/24/23] amlodipine 5 mg tablet 5 mg PO DAILY blood pressure 09/07/22 [History Last Taken 03/24/23] fenofibrate nanocrystallized 145 mg tablet 1 tablet PO .supper . 10/20/22 [History Last Taken 03/24/23] telmisartan 40 mg tablet 40 mg PO QHS blood pressure 10/20/22 [History Last Taken 03/24/23] colestipol 1 gram tablet 2 g (2 x 1 gram) PO BID . #60 tabs 12/22/22 [Rx Last Taken 03/24/23] Ozempic TH weight loss 03/11/23 [History Last Taken 03/23/23] aspirin 81 mg capsule 81 mg PO DAILY 03/11/23 [History Last Taken 03/11/23] gabapentin 300 mg capsule See Rx Instructions .Route .COMPLEX #30 caps 03/15/23 [Rx Last Taken 03/24/23] clonazepam 1 mg tablet 1 mg PO BID PRN anxiety #60 tabs 03/24/23 [Rx Last Taken 03/25/23] oxycodone 5 mg tablet 5 mg PO Q6H PRN pain 7 days #14 tabs 03/25/23 [Rx Last Taken Unknown] lurasidone 120 mg tablet See Rx Instructions .Route .COMPLEX #30 tabs 04/18/23 [Rx Last Taken Unknown] divalproex 500 mg tablet,delayed release (Depakote) 1,000 mg (2 x 500 mg) PO QHS 30 days #60 tabs 05/10/23 [Rx Last Taken Unknown] ciprofloxacin HCl 500 mg tablet 500 mg PO Q12H 05/14/23 [History Last Taken Unknown] ondansetron 4 mg disintegrating tablet 4 mg PO Q8H PRN PRN Nausea #10 tabs 05/14/23 [Rx Last Taken Unknown] phenazopyridine 200 mg tablet 200 mg PO TID PRN bladder spasm 05/14/23 [History Last Taken Unknown] phenazopyridine 95 mg tablet (Urinary Pain Relief) 95 mg PO Q8H PRN burn 05/14/23 [History Last Taken Unknown] sertraline 100 mg tablet 200 mg PO QHS 05/14/23 [History Last Taken Unknown] tamsulosin 0.4 mg capsule 0.4 mg PO Q24H 05/14/23 [History Last Taken Unknown] Allergy/AdvReac Type Severity Reaction Status Date / Time No Known Allergies Allergy Verified 05/14/23 18:51 Family History Father Heart disease Mother Cancer lung- smoker Surgical History delivery delivered Hx laparoscopic cholecystectomy Hx of colonoscopy Hx of cystoscopy Hx of tonsillectomy Social History Smoking Status: Never smoker alcohol intake: current details: social substance use type: does not use caffeine: Yes what type of physical activity do you participate in: none seatbelt use: always do you feel safe at home: Yes additional social history: [employer] Patient works at [employer] Constitutional: Negative for weight loss, weakness. Positive fever and chills Eyes: Negative for vision loss, vision change, double vision ENT: Negative for any sore throat, ear pain, congestion Cardiovascular: Negative for any chest pain, tightness, palpitations Respiratory: Negative for any cough, sputum production, hemoptysis, dyspnea, dyspnea on exertion, orthopnea Gastrointestinal: Negative for any abdominal pain, nausea, vomiting, diarrhea, constipation, blood in stool, blood in vomit : Negative for any urinary frequency, dysuria, retention, blood in urine Muscle skeletal: Negative for any myalgias, arthralgias, neck pain. Positive for lower back pain left-sided back pain Neurological: Negative for any headache, syncope, numbness or tingling, dizziness Skin: Negative for any rashes, lumps, itching, abrasions, lacerations Psychiatric: Negative for any depression, anxiety, stress, suicidal ideation, homicidal ideation Hematologic: Negative for any easy bruising, excessive bruising, easy bleeding Allergies: Negative for any eczema, hives, rash EXAM Physical Exam Narrative Exam Narrative: Vital signs reviewed. Patient does have a flat affect HEET: Head normocephalic atraumatic, TMs clear bilaterally. Posterior pharynx is clear, moist mucous membranes. Nares clear bilaterally. Neck: Supple with no lymphadenopathy or tenderness. No signs of meningismus. Cardiac: Tachycardic rate no murmurs gallops or rubs, equal peripheral pulses bilaterally. Respiratory: Lungs clear to auscultation bilaterally. No chest tenderness. Abdomen: Soft, nontender, nondistended. No abdominal bruit or pulsatile masses. No hepatosplenomegaly Extremities: No peripheral edema, no signs of gross trauma or deformity. Active full range of motion of all extremities. Neuro: Cranial nerves II through XII intact, no focal neurological deficits. Skin: Clean dry and intact with no rash, purpura, petechiae, vesicles or pustules. Backs/flank: Left-sided CVA tenderness, no midline spinal tenderness, no deformity. Psych: Normal mood and affect. No SI, HI or acute psychosis. Const Vital Signs: 05/14/23 18:51 05/14/23 19:41 05/14/23 20:06 Temperature 99.7 F H 99.8 F H Temperature Source Oral Oral Pulse Rate 125 H 109 H Respiratory Rate 16 16 Respiratory Effort Normal Non-Labored Respiratory Pattern Normal Blood Pressure 110/73 104/66 Blood Pressure Mean 85 78 Pulse Ox 98 98 Oxygen Delivery Method Room Air Room Air 05/14/23 20:45 Temperature 98.8 F Temperature Source Oral Pulse Rate 105 H Respiratory Rate 16 Respiratory Effort Respiratory Pattern Blood Pressure 106/60 Blood Pressure Mean 75 Pulse Ox 98 Oxygen Delivery Method Room Air MDM MDM Lab Data Labs: Laboratory Results - last 24 hr 05/14/23 19:20 WBC 5.6 RBC 3.72 L Hgb 9.2 L Hct 29.1 L MCV 78.2 L MCH 24.7 L MCHC 31.6 L RDW Std Deviation 51.3 H RDW Coeff of Chet 17.9 H Plt Count 152 MPV 8.9 Immature Gran % (Auto) 0.200 Neut % (Auto) 77.0 H Lymph % (Auto) 10.1 L Cache % (Auto) 11.4 H Eos % (Auto) 1.1 Baso % (Auto) 0.2 Absolute Neuts (auto) 4.3 Absolute Lymphs (auto) 0.56 L Nucleated RBC % 0 Differential Comment SCANNED Sodium 136 Potassium 3.8 Chloride 105 Carbon Dioxide 26.0 Anion Gap 5 BUN 18 Creatinine 1.75 H Estim Creat Clear Calc 43.77 Est GFR (MDRD) Af Amer 41 L Est GFR (MDRD) Non-Af 34 L BUN/Creatinine Ratio 10.3 Glucose 146 H Lactic Acid 0.8 Calcium 8.4 L Total Bilirubin 0.80 AST 9 L ALT 15 Alkaline Phosphatase 40 L Total Protein 7.4 Albumin 3.2 Globulin 4.2 Albumin/Globulin Ratio 0.8 L Lipase 26 Urine Color Yellow Urine Clarity Sl. Cloudy Urine pH 7.0 Ur Specific [place] 1.005 Urine Protein 30 H Urine Glucose (UA) Normal Urine Ketones Negative Urine Occult Blood 250 H Urine Nitrite Positive H Urine Bilirubin Negative Urine Urobilinogen Normal Ur Leukocyte Esterase 500 H Urine RBC 0-5 SEEN Urine WBC 25-50 SEEN Ur Squamous Epith Cells 0-5 SEEN Urine Bacteria RARE Urine Mucus 0 SEEN Treatment and Re-Evaluation :: Patient appears to be in no obvious respiratory distress, vital signs are stable, patient slightly tachycardic, afebrile here. Patient presents the emergency department left-sided flank pain lower back pain, fever and chills on Cipro after a lithotripsy with Dr. Durham yesterday. Patient is here for evaluation. Differential diagnosis includes pyelonephritis, infected kidney stone, viral syndrome, sequelae from surgery. Patient received a sepsis work-up with 2 sets of blood cultures, lactic acid, IV fluids, 4 mg of morphine, Zofran. Patient will receive a CT scan of the abdomen pelvis without contrast. Patient laboratory values show a normal CBC, patient's white blood count was normal, patient's hemoglobin is 9.2, patient is baseline anemic. Patient's chemistries showed elevated and creatinine of 1.75, patient is usually around 1- 1.4. This is slightly elevated. Lactic acid was negative. Patient's urinalysis showed rare bacteria, 25-50 white blood cells, 500 leukocyte esterase, positive nitrites. Patient is currently on Cipro, patient will be given IV Rocephin here, as well as urine culture. Patient will receive a CT scan of the abdomen pelvis. I spoke with Dr. Durham, let him know of the results, at this time, he does mention giving IV fluids, continue the Cipro, and to follow-up outpatient. Patient will be given a prescription for Zofran for home, patient has pain medicine, other medicine at home. Discharge Plan Triage Chief Complaint: Flank Pain Other Complaint: Fever ED Midlevel Provider: Mickey Contreras ED Provider: Jessy Villalta Dx/Rx/DC Orders Clinical Impression: Acute flank pain, UTI (urinary tract infection), Fever Instructions: ED Abdominal Pain Unkn Cause Fem, ED Fever Control (Adult) Prescriptions: New ondansetron 4 mg tablet,disintegrating 4 mg PO Q8H PRN PRN (Reason: Nausea) Qty: 10 0RF No Action metformin 500 mg tablet 500 mg PO BID Patient Comments: TAKE 1 TABLET BY MOUTH 2)TIMES A DAY DIRECTEDS fenofibrate nanocrystallized 145 mg tablet 1 tablet PO .supper telmisartan 40 mg tablet 40 mg PO QHS amlodipine 5 mg tablet 5 mg PO DAILY divalproex [Depakote] 500 mg tablet,delayed release (DR/EC) 1,000 mg PO QHS 30 Days Qty: 60 1RF potassium chloride 20 mEq tablet extended release 20 meq PO BID Patient Comments: Unsure of dose, 2 very large pills levothyroxine 25 mcg tablet 50 mcg PO DAILY ciprofloxacin HCl 500 mg tablet 500 mg PO Q12H Patient Comments: TAKE 1 TABLET BY MOUTH 2CTIMES A DAY sertraline 100 mg tablet 200 mg PO QHS phenazopyridine 200 mg tablet 200 mg PO TID PRN Patient Comments: TAKE 1 TABLET BY MOUTH 3ETIMES A DAY NEEDED FORPBLADDER SPASM FOR 7 DAYS tamsulosin 0.4 mg capsule 0.4 mg PO Q24H Patient Comments: TAKE 1 CAPSULE BY MOUTHTONCE DAILYB phenazopyridine [Urinary Pain Relief] 95 mg tablet 95 mg PO Q8H PRN (Reason: burn) Patient Comments: TAKE 1 TABLET BY MOUTH 3CTIMES A DAY NEEDED FOR BURNING aspirin 81 mg capsule 81 mg PO DAILY Ozempic TH Patient Comments: Patient taking compound similar not sure what dose oxycodone 5 mg tablet 5 mg PO Q6H PRN (Reason: pain) 7 Days Qty: 14 0RF colestipol 1 gram tablet 2 g PO BID Qty: 60 11RF gabapentin 300 mg capsule See Rx Instructions .ROUTE .COMPLEX Qty: 30 2RF Dose Instruction: TAKE 1 CAPSULE BY MOUTH AT BEDTIME Rx Instructions: TAKE 1 CAPSULE BY MOUTH AT BEDTIME clonazepam 1 mg tablet 1 mg PO BID PRN (Reason: anxiety) Qty: 60 1RF lurasidone 120 mg tablet See Rx Instructions .ROUTE .COMPLEX Qty: 30 2RF Dose Instruction: TAKE 1 TABLET BY MOUTH EVERY NIGHT AT BEDTIME, MUST ADMINISTER WITH FOOD (at least 350 calories) Rx Instructions:
[2023-05-14 19:43] LABS: Absolute Lymphocyte Count 0.56 X10^3/uL (0.83-4.51); Absolute Neutrophil Count 4.3 X10^3/uL (2.0-7.7); Basophil# 0.01 X10^3/uL; Basophil% 0.2 % (0-1); Eosinophil# 0.06 X10^3/uL; Eosinophils% 1.1 % (0-5); Hematocrit 29.1 % (37-47); Hemoglobin 9.2 g/dL (12.0-15.0); Lymphocyte # 0.56 X10^3/ul (0.83-4.51); Lymphocyte % 10.1 % (19-41); Mean Corp Hgb Conc 31.6 g/dL (32-36); Mean Corpuscular Hgb 24.7 pg (27.0-32.0); Mean Corpuscular Volume 78.2 fL (81-99); Mean Platelet Vol. 8.9 fl (6.2-12.0); Monocyte# 0.63 X10^3/uL; Monocyte% 11.4 % (0-10); NRBC Flagged by Analyzer 0 % (0-5); Neutrophil # 4.28 X10^3/uL (2.7-7.7); POSITIVE DIFFERENTIAL YES; Platelet Count 152 K/mm3 (150-450); RBC Distribution Width CV 17.9 % (11.6-14.6); RBC Distribution Width SD 51.3 fl (35.1-43.9); Red Blood Count 3.72 M/mm3 (4.2-5.4); White Blood Count 5.6 K/mm3 (4.4-11.0)
[2023-05-14] MEDS: 0.9% Normal Saline (1000mL) 1,000 ML 1000 ML IV (19:44)
[2023-05-14] MEDS: Morphine 4 MG/ML Syringe IV (19:44)
[2023-05-14 19:47] LABS: Mucous, Urine 0 SEEN /hpf (<or=2+)
[2023-05-14 19:52] LABS: Differential Indicated SCAN CRITERIA MET
[2023-05-14 19:53] LABS: Color, Urine Yellow (Yellow); Glucose, Dipstick Normal (Normal); Ketone-Dipstick Negative (Negative); Leukocyte Esterase-Dipstick 500 /ul (Negative); Nitrite-Dipstick Positive (Negative); Occult Blood-Urine 250 /ul (Negative); Protein-Dipstick 30 mg/dl (Negative); Specific Gravity, Urine 1.005 (1.002-1.030); Urine Bilirubin Dipstick Negative (Negative); Urine Clarity Sl. Cloudy (Clear); Urine Urobilinogen Normal (Normal)
[2023-05-14 20:00] LABS: Bacteria RARE /hpf (None Seen); Red Blood Cells-Urine 0-5 SEEN /hpf (0-5); Squamous Epithelial Cells - UA 0-5 SEEN /hpf (5-10); White Blood Cells 25-50 SEEN /hpf (0-5)
[2023-05-14 20:01] LABS: ALB/GLOB Ratio 0.8 RATIO (0.9-2.4); AST(SGOT) 9 U/L (15-37); Alanine Aminotransfer ALT/SGPT 15 U/L (13-56); Albumin, Serum 3.2 g/dL (3.2-5.0); Alkaline Phosphatase 40 U/L (45-117); Anion Gap 5 (5-15); BUN 18 mg/dL (7-18); BUN/Creat Ratio 10.3 RATIO (10-20); Calcium,Total 8.4 mg/dL (8.5-10.1); Chloride 105 mmol/L (98-107); Creatinine, Serum 1.75 mg/dL (0.55-1.02); EST Glomerular Filtration Rate 34 mL/min (>60); Est Glom Filt Rate - Afr Amer 41 mL/min (>60); Estimated Creatinine Clearance 43.77 ml/min; Globulin 4.2 g/dL (2.2-4.2); Glucose 146 mg/dL (74-106); Lipase 26 U/L (13-75); Potassium 3.8 mmol/L (3.5-5.1); Protein, Total 7.4 g/dL (6.4-8.2); Sodium Level 136 mmol/L (136-145)
[2023-05-14 20:05] LABS: Lactic Acid 0.8 mmol/L (0.4-1.9)
[2023-05-14 20:06] VITALS: BP 104/66; PULSE 109; RESP 16; TEMP 37.7; O2SAT 98
[2023-05-14 20:09] LABS: Differential Comment SCANNED
[2023-05-14] MEDS: Ceftriaxone 1 GM/50 ML BAG IV (20:41)
[2023-05-14 20:45] VITALS: BP 106/60; PULSE 105; RESP 16; TEMP 37.1; O2SAT 98
[2023-05-14 21:40] VITALS: BP 100/61; PULSE 99; RESP 16; TEMP 37.1
== END 2023-05-14 21:56 | disposition home or self-care (01) ==
LOC: ED 20:09
PROVIDERS: Nurse Practitioner; Emergency Provider Emergency Medicine; PCP Family Medicine; Visit Provider Emergency Medicine
DX: R10.9 Unspecified abdominal pain (principal); F31.81 Bipolar II disorder; E11.9 Type 2 diabetes mellitus without complications; N39.0 Urinary tract infection, site not specified; E78.5 Hyperlipidemia, unspecified; I10 Essential (primary) hypertension; R50.9 Fever, unspecified; Z79.84 Long term (current) use of oral hypoglycemic drugs; Z79.899 Other long term (current) drug therapy; Z79.82 Long term (current) use of aspirin; F41.9 Anxiety disorder, unspecified; Z90.49 Acquired absence of other specified parts of digestive tract
CPT/HCPCS: 74176; 80053; 81001; 83605; 83690; 85025; 87040; 87086; 96365; 96375; 99285; J7030; A4216

== ENCOUNTER → 2023-05-19 | Outpatient (CLI) | payer OTHER, SELFPAY ==
--- NOTE | 2023-05-19 09:22 | RAD_ITS ---
STUDY: X-RAY - ABDOMEN/PELVIS REASON FOR EXAM: Female, 42 years old. CALCULUS OF KIDNEY TECHNIQUE: Frontal views COMPARISON: None. FINDINGS: There is an unremarkable bowel gas pattern. There is no demonstrated free abdominal air. There are calculi overlying the left renal shadow up to 1.5 cm. A left ureteral stent is in place. Possible enlarged spleen. Normal soft tissue structures. Normal visualized osseous structures. RAD/Abdomen Single View IMPRESSION: Left renal calculi. Left ureteral stent in place. Electronically Signed: Ignacio Spivey DO at 17:43 EST ,
== END | disposition home or self-care (01) ==
LOC: RAD 09:20
PROVIDERS: PCP Family Medicine; Referring Provider Urology; Visit Provider Urology
DX: N20.0 Calculus of kidney (principal)
CPT/HCPCS: 74018

== ENCOUNTER → 2023-06-01 | Outpatient (CLI) | payer OTHER, SELFPAY ==
[2023-06-01 10:58] LABS: Valproic Acid (Depakene) Level 58 ug/mL (50-100)
== END | disposition home or self-care (01) ==
LOC: MTLAB 08:09
PROVIDERS: PCP Family Medicine; Referring Provider Student in an Organized Health Care Education/Training Program; Visit Provider Student in an Organized Health Care Education/Training Program
DX: F31.9 Bipolar disorder, unspecified (principal); G47.00 Insomnia, unspecified
CPT/HCPCS: 36415; 80164

== ENCOUNTER → 2023-07-12 | Outpatient (CLI) | payer OTHER, SELFPAY ==
[2023-07-12 09:58] LABS: Absolute Lymphocyte Count 1.25 X10^3/uL (0.83-4.51); Absolute Neutrophil Count 2.5 X10^3/uL (2.0-7.7); Basophil# 0.02 X10^3/uL; Basophil% 0.5 % (0-1); Eosinophil# 0.09 X10^3/uL; Eosinophils% 2.2 % (0-5); Hematocrit 34.8 % (37-47); Hemoglobin 11.5 g/dL (12.0-15.0); Lymphocyte # 1.25 X10^3/ul (0.83-4.51); Lymphocyte % 30.7 % (19-41); Mean Corpuscular Hgb 26.4 pg (27.0-32.0); Mean Corpuscular Volume 79.8 fL (81-99); Mean Platelet Vol. 8.6 fl (6.2-12.0); Monocyte# 0.23 X10^3/uL; Monocyte% 5.7 % (0-10); NRBC Flagged by Analyzer 0 % (0-5); Neutrophil # 2.47 X10^3/uL (2.7-7.7); Neutrophil % 60.7 % (47-70); Platelet Count 195 K/mm3 (150-450); RBC Distribution Width CV 15.2 % (11.6-14.6); Red Blood Count 4.36 M/mm3 (4.2-5.4); White Blood Count 4.1 K/mm3 (4.4-11.0)
[2023-07-12 10:35] LABS: Hemoglobin A1c 4.7 % (3.8-5.6)
[2023-07-12 10:39] LABS: AST(SGOT) 16 U/L (15-37); Alanine Aminotransfer ALT/SGPT 35 U/L (13-56); Albumin, Serum 4.1 g/dL (3.2-5.0); Alkaline Phosphatase 50 U/L (45-117); Anion Gap 8 (5-15); BUN 25 mg/dL (7-18); BUN/Creat Ratio 16.2 RATIO (10-20); Calcium,Total 9.7 mg/dL (8.5-10.1); Chloride 110 mmol/L (98-107); Creatinine, Serum 1.54 mg/dL (0.55-1.02); EST Glomerular Filtration Rate 39 mL/min (>60); Est Glom Filt Rate - Afr Amer 47 mL/min (>60); Glucose 135 mg/dL (74-106); Potassium 4.8 mmol/L (3.5-5.1); Protein, Total 8.1 g/dL (6.4-8.2); Sodium Level 137 mmol/L (136-145); Thyroid Stim Hormone (TSH) 1.72 uIU/mL (0.358-3.74)
== END | disposition home or self-care (01) ==
LOC: MTLAB 09:13
PROVIDERS: PCP Family Medicine; Referring Provider Family Medicine; Visit Provider Family Medicine
DX: K76.0 Fatty (change of) liver, not elsewhere classified (principal); R73.03 Prediabetes; E03.9 Hypothyroidism, unspecified
CPT/HCPCS: 36415; 80053; 83036; 84443; 85025

== ENCOUNTER → 2024-01-31 | Outpatient (CLI) | payer OTHER, SELFPAY ==
[2024-01-31 12:43] LABS: Absolute Lymphocyte Count 0.88 X10^3/uL (0.83-4.51); Absolute Neutrophil Count 4.6 X10^3/uL (2.0-7.7); Basophil# 0.02 X10^3/uL; Basophil% 0.3 % (0-1); Eosinophil# 0.05 X10^3/uL; Eosinophils% 0.8 % (0-5); Hematocrit 29.8 % (37-47); Lymphocyte # 0.88 X10^3/ul (0.83-4.51); Lymphocyte % 14.1 % (19-41); Mean Corp Hgb Conc 33.6 g/dL (32-36); Mean Corpuscular Hgb 29.8 pg (27.0-32.0); Mean Corpuscular Volume 88.7 fL (81-99); Mean Platelet Vol. 9.7 fl (6.2-12.0); Monocyte% 11.2 % (0-10); NRBC Flagged by Analyzer 0 % (0-5); Neutrophil # 4.57 X10^3/uL (2.7-7.7); Neutrophil % 73.3 % (47-70); Platelet Count 225 K/mm3 (150-450); RBC Distribution Width CV 14.3 % (11.6-14.6); RBC Distribution Width SD 46.5 fl (35.1-43.9); Red Blood Count 3.36 M/mm3 (4.2-5.4); White Blood Count 6.2 K/mm3 (4.4-11.0)
[2024-01-31 13:32] LABS: ALB/GLOB Ratio 0.9 RATIO (0.9-2.4); AST(SGOT) 18 U/L (15-37); Alanine Aminotransfer ALT/SGPT 24 U/L (13-56); Albumin, Serum 3.9 g/dL (3.2-5.0); Alkaline Phosphatase 48 U/L (45-117); Anion Gap 10 (5-15); BUN 21 mg/dL (7-18); Calcium,Total 9.7 mg/dL (8.5-10.1); Chloride 109 mmol/L (98-107); Creatinine, Serum 1.62 mg/dL (0.55-1.02); EST Glomerular Filtration Rate 37 mL/min (>60); Est Glom Filt Rate - Afr Amer 45 mL/min (>60); Globulin 4.3 g/dL (2.2-4.2); Glucose 99 mg/dL (74-106); Lipase 45 U/L (13-75); Potassium 4.2 mmol/L (3.5-5.1); Protein, Total 8.2 g/dL (6.4-8.2); Sodium Level 138 mmol/L (136-145)
== END | disposition home or self-care (01) ==
LOC: MTLAB 09:41
PROVIDERS: PCP Family Medicine; Referring Provider Family Medicine; Visit Provider Family Medicine
DX: R53.81 Other malaise (principal); R53.83 Other fatigue; B34.9 Viral infection, unspecified
CPT/HCPCS: 80053; 83690; 85025; 86140

== ENCOUNTER → 2024-02-02 | Outpatient (CLI) | payer OTHER, SELFPAY ==
--- NOTE | 2024-02-02 16:28 | RAD_ITS ---
HISTORY: CALCULUS OF KIDNEY. TECHNIQUE: XR Abdomen 1 View. COMPARISON: 05/19/2023. FINDINGS: BOWEL GAS PATTERN: No dilated bowel loops identified. FREE AIR: Not assessed on supine view. CALCIFICATIONS: Left renal stent removed with left renal calculi measuring up to 11 mm BONES: Unremarkable. OTHER: Hepatomegaly. Lung bases clear. RAD/Abdomen Single View IMPRESSION: Left nephrolithiasis. Electronically Signed: Sonal Ornelas MD at 9:28 EDT ,
== END | disposition home or self-care (01) ==
LOC: RAD 16:27
PROVIDERS: PCP Family Medicine; Referring Provider Urology; Visit Provider Urology
DX: N20.0 Calculus of kidney (principal)
CPT/HCPCS: 74018

== ENCOUNTER → 2024-05-22 | Outpatient (CLI) | payer OTHER, SELFPAY ==
[2024-05-22 15:33] LABS: Absolute Lymphocyte Count 1.61 X10^3/uL (0.83-4.51); Absolute Neutrophil Count 2.8 X10^3/uL (2.0-7.7); Basophil# 0.02 X10^3/uL; Basophil% 0.4 % (0-1); Eosinophil# 0.04 X10^3/uL; Eosinophils% 0.8 % (0-5); Hemoglobin 13.4 g/dL (12.0-15.0); Lymphocyte # 1.61 X10^3/ul (0.83-4.51); Lymphocyte % 33.4 % (19-41); Mean Corp Hgb Conc 32.7 g/dL (32-36); Mean Corpuscular Hgb 27.9 pg (27.0-32.0); Mean Corpuscular Volume 85.4 fL (81-99); Mean Platelet Vol. 10.5 fl (6.2-12.0); Monocyte# 0.35 X10^3/uL; Monocyte% 7.3 % (0-10); NRBC Flagged by Analyzer 0 % (0-5); Neutrophil # 2.79 X10^3/uL (2.7-7.7); Neutrophil % 57.9 % (47-70); Platelet Count 163 K/mm3 (150-450); RBC Distribution Width CV 14.2 % (11.6-14.6); RBC Distribution Width SD 44.3 fl (35.1-43.9); White Blood Count 4.8 K/mm3 (4.4-11.0)
[2024-05-22 16:19] LABS: ALB/GLOB Ratio 1.3 RATIO (0.9-2.4); AST(SGOT) 28 U/L (15-37); Alanine Aminotransfer ALT/SGPT 41 U/L (13-56); Albumin, Serum 4.4 g/dL (3.2-5.0); Alkaline Phosphatase 59 U/L (45-117); Anion Gap 8 (5-15); BUN 14 mg/dL (7-18); BUN/Creat Ratio 10.8 RATIO (10-20); Calcium,Total 9.4 mg/dL (8.5-10.1); Chloride 110 mmol/L (98-107); EST Glomerular Filtration Rate 47 mL/min (>60); Est Glom Filt Rate - Afr Amer 57 mL/min (>60); Globulin 3.4 g/dL (2.2-4.2); Glucose 76 mg/dL (74-106); Potassium 4.2 mmol/L (3.5-5.1); Protein, Total 7.8 g/dL (6.4-8.2); Sodium Level 139 mmol/L (136-145)
[2024-05-22 16:48] LABS: Osmolality, Serum 294 mOsm/KG (275-295)
== END | disposition home or self-care (01) ==
PROVIDERS: PCP Family Medicine; Referring Provider Family Medicine; Visit Provider Family Medicine
DX: E86.0 Dehydration (principal)
CPT/HCPCS: 36415; 80053; 83930; 85025

== ENCOUNTER 2024-09-11 20:19 | Emergency (ER) | payer OTHER, SELFPAY ==
[2024-09-11 20:19] VITALS: BP 150/97; PULSE 75; RESP 18; TEMP 36.5; O2SAT 100; BMI 27.8
[2024-09-11 21:06] LABS: Absolute Lymphocyte Count 2.11 X10^3/uL (0.83-4.51); Absolute Neutrophil Count 1.8 X10^3/uL (2.0-7.7); Basophil# 0.02 X10^3/uL; Basophil% 0.5 % (0-1); Eosinophil# 0.09 X10^3/uL; Eosinophils% 2.1 % (0-5); Hematocrit 39.4 % (37-47); Hemoglobin 13.5 g/dL (12.0-15.0); Lymphocyte # 2.11 X10^3/ul (0.83-4.51); Lymphocyte % 48.4 % (19-41); Mean Corp Hgb Conc 34.3 g/dL (32-36); Mean Corpuscular Hgb 29.9 pg (27.0-32.0); Mean Corpuscular Volume 87.4 fL (81-99); Mean Platelet Vol. 9.1 fl (6.2-12.0); Monocyte% 6.9 % (0-10); NRBC Flagged by Analyzer 0 % (0-5); Neutrophil # 1.84 X10^3/uL (2.7-7.7); Neutrophil % 42.1 % (47-70); Platelet Count 140 K/mm3 (150-450); RBC Distribution Width SD 41.1 fl (35.1-43.9); Red Blood Count 4.51 M/mm3 (4.2-5.4); White Blood Count 4.4 K/mm3 (4.4-11.0)
[2024-09-11 21:18] LABS: Internal QC Validated? YES +Cl - CLEAR BKGD; Pregnancy, Serum, hCG Quali. NEGATIVE Negative
[2024-09-11 21:28] LABS: ALB/GLOB Ratio 2.3 RATIO (0.9-2.4); AST(SGOT) 20 U/L (<=31); Alanine Aminotransfer ALT/SGPT 12 U/L (<=34); Albumin, Serum 4.8 g/dL (3.5-5.0); Alkaline Phosphatase 63 U/L (35-104); Anion Gap 16 (5-15); BUN 9 mg/dL (4-19); BUN/Creat Ratio 7.5 RATIO (10-20); Calcium,Total 9.4 mg/dL (7.6-11.0); Carbon Dioxide 17.5 mmol/L (21.0-32.0); Chloride 105 mmol/L (98-108); Creatinine, Serum 1.24 mg/dL (0.70-1.20); EST Glomerular Filtration Rate 55 (>60); Globulin 2.1 g/dL (2.2-4.2); Glucose 64 mg/dL (70-99); Potassium 4.3 mmol/L (3.3-5.1); Protein, Total 6.8 g/dL (5.9-8.4); Sodium Level 139 mmol/L (133-145); Total Bilirubin 0.42 mg/dL (0.00-1.30)
--- NOTE | 2024-09-11 22:00 | CT_ITS ---
PROCEDURE: ABDOMEN/PELVIS WITHOUT CONT 09/11/2024 REASON FOR EXAM: KIDNEY STONE TECHNIQUE: Abdomen and pelvis CT without intravenous contrast. Noncontrast technique limits evaluation of the abdominal and pelvic viscera. Coronal and Sagittal reconstruction series were provided. One or more dose reduction techniques were used (e.g., Automated exposure control, adjustment of the mA and/or kV according to patient size, use of iterative reconstruction technique). PATIENT PREPARATION: Per protocol ORAL CONTRAST TYPE: None. AMOUNT: mL COMPARISON: CT of the abdomen and pelvis dated 05/14/2023. FINDINGS: Lung bases: Unremarkable Liver: Hepatomegaly. Gallbladder: Surgically absent Spleen: Splenomegaly Pancreas: Normal size. No surrounding inflammation. Adrenals: Unremarkable Kidneys: Mild left perinephric stranding with multiple nonobstructing renal calculi, the largest of which is identified within the lower pole measuring 1.2 cm. Cortical scarring of the left kidney. Left kidney is atrophic. Prominent left renal pelvis. No obstructing stone. Right kidney is grossly unremarkable. Bladder: Unremarkable Reproductive Organs: Normal uterine size and contour. Ovaries are unremarkable. Bowel: Status post gastrectomy. No inflammatory changes of the bowel loops. Appendix: Unremarkable Lymph nodes: Prominent para-aortic lymph node. Vasculature: The abdominal aorta and IVC contours are normal. Noncontrast technique limits evaluation. Peritoneum / Retroperitoneum: No free air free fluid. Bones: Unremarkable CT/Abdomen/Pelvis without Cont IMPRESSION: Multiple nonobstructing left renal calculi with prominent left renal pelvis. N o obstructing stone is visualized. Mild left perinephric stranding. Hepatosplenomegaly. Reading Location: [place]
--- NOTE | 2024-09-11 22:00 | EDS_ITS ---
HPI History of Present Illness Chief Complaint: Flank Pain Narrative Narrative: 43-year-old female past medical history of previous kidney stones and ureteral stones, sees Dr. Durham, presents with right sided flank pain that began around 5 PM, almost 5 hours ago. Was sudden onset and felt similar to her previous ureterolithiasis. She states the last kidney stone was approximately over a year ago. Today she experienced mild nausea but no vomiting. No exacerbating or alleviating factors. However, upon initial examination, she think she may have passed a stone already as she is currently pain-free. She has not noticed any dysuria or gross hematuria today. It was mainly on the right side. She does state that she has had previous surgical procedures by urology to her left kidney/ureter. No fevers or chills. PFSH [facility] Medical History Leg cramps PONV (postoperative nausea and vomiting) CRVO (central retinal vein occlusion) Right ureteral calculus Anxiety Bipolar 2 disorder Thyroid disease Diabetes Anemia Fatty liver Migraine headache Chronic diarrhea Non-smoker Decreased circulation Insomnia Bipolar 1 disorder Diarrhea Alcoholic hepatitis Breast lump Alcohol abuse Hypertension Home Medications ?Medication ?Instructions ?Recorded ?Last Taken ?Type potassium chloride 20 mEq 20 meq PO BID supplement 09/0103/24/23 History tablet,extended release levothyroxine 25 mcg tablet 50 mcg PO DAILY thyroid 03/24/23 History colestipol 1 gram tablet 2 g (2 x 1 gram) PO BID . #6 0 tabs 12/22/22 03/24/23 Rx ondansetron 4 mg disintegrating 4 mg PO Q8H PRN PRN Na usea #10 tabs 05/14/23 Unknown Rx tablet lurasidone 120 mg tablet See Rx Instructions .Route 0 07/09/24 Unknown Rx .COMPLEX #30 tabs [id number] 45 mg-folic cap PO 07/11/24 Unk nown History acid 800 mcg-vit K 120 mcg capsule (Bariatric Multivitamins) tirzepatide 2.5 mg/0.5 mL 2.5 mg subcut QWEEK 07/11/24 Unknown History subcutaneous pen injector (Mounjaro) clonazepam 1 mg tablet 1 mg PO BID PRN anxiety #60 tabs 07/18/24 Unknown Rx gabapentin 300 mg capsule 300 mg PO BID 30 days #60 ca ps 07/18/24 Unknown Rx sertraline 100 mg tablet 200 mg (2 x 100 mg) PO QHS # 60 08/03/24 Unknown Rx TABLETS lamotrigine 100 mg tablet 100 mg PO QDAY 30 days #30 t abs 08/21/24 Unknown Rx sulfamethoxazole 800 1 tab PO BID 7 days #14 tabs 09/12/24 Unknown Rx mg-trimethoprim 160 mg tablet (Bactrim DS) Allergy/AdvReac Type Severity Reaction Status Date / Time No Known Allergies Allergy Verified 09/11/24 20:20 Family History Father Heart disease Mother Cancer lung- smoker Surgical History H/O gastric sleeve Hx of cystoscopy Hx laparoscopic cholecystectomy Hx of colonoscopy Hx of tonsillectomy delivery delivered Social History household members: spouse housing: house Smoking Status: Never smoker alcohol intake: former details: social substance use type: does not use caffeine: Yes what type of physical activity do you participate in: none seatbelt use: always do you feel safe at home: Yes 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 No fevers or chills. Positive nausea, no vomiting. No exacerbating or alleviating factors to her flank pain. No gross hematuria or dysuria. EXAM Physical Exam Narrative Exam Narrative: Afebrile. Vital signs noted. Nontoxic-appearing. Cardiovascular examination reveals a regular rate and rhythm. Lungs are clear to auscultation bilaterally. Abdomen is soft, nontender, without guarding or rebound. Positive bowel sounds. No CVA tenderness to percussion, right. Neurological examination no nfocal, nonlateralizing. Const Vital Signs: 09/11/24 20:19 09/11/24 22:19 Temperature 97.7 F L Temperature Source Oral Pulse Rate 75 70 Respiratory Rate 18 16 Blood Pressure 150/97 H 116/78 Blood Pressure Mean 114 90 Pulse Ox 100 98 Oxygen Delivery Method Room Air MDM MDM MDM Narrative Medical decision making narrative: Differential diagnosis includes but not limited to ureterolithiasis versus passed kidney stone versus musculoskeletal pain versus pyelonephritis. I have low suspicion for any diverticulitis because the history and physical does not support this. Although she feels she may have passed the stone, I do feel CT is indicated to ensure that it is not just renal colic that has been alleviated. Labs were obtained per protocol. I reviewed her laboratory work and she has normal white count of 4.4 with hemoglobin 13.5, hematocrit 39.4, platelet count low at 140 which I think is nonspecific. CMP is remarkable for creatinine slightly elevated at 1.24 but normal BUN of 9. Serum is negative. In review of her prior labs, she has had thrombocytopenia before at 142, and additionally seems like she has chronic elevation of her creatinine and this is actually improved over previous values. She drove herself here, and she is currently pain-free so I do not feel narcotic pain medications are currently indicated. Additionally, she has history of gastric sleeve procedure so I do not feel that she requires NSAIDs. Urinalysis does show 50-100 WBCs but there are 5-10 squamous epithelial cells there is rare urine bacteria as well. Her urine was sent for culture. However, I will start her on antibiotics in the form of Bactrim. She was given her first dose here and prescription written for the next week. The CT of the abdomen and pelvis was obtained and reviewed. I reviewed the radiology report and all of her pain was right-sided but there is no acute obstructing stone on the right. There is evidence of nonobstructing stones in the left kidney and the radiologist comments on perinephric stranding on the left that is mild. However, she is not having pain on that side and currently she is pain-free. She may have passed a kidney stone but there is no evidence of hydronephrosis on the right where all her pain was. At this point in time, her urine culture is pending. I feel she can be discharged with a prescription for Bactrim. She was told to return with fever, increased pain, new or worsening symptoms but otherwise follow-up with her primary care provider and/or her urologist Dr. Durham. Patient is motivated for discharge. I feel she can take [id number] medications for analgesia, but she is currently pain-free. Feel she requires narcotic pain medications currently disposition is discharged home in stable condition. History & Record Review Discussion w/independent historian: Patient Additional record(s) reviewed:: Prior labs Lab Data Attestation: I reviewed the patient's lab results. Labs: Laboratory Results - last 24 hr 09/11/24 09/11/24 20:47 22:10 WBC 4.4 RBC 4.51 Hgb 13.5 Hct 39.4 MCV 87.4 MCH 29.9 MCHC 34.3 RDW Std Deviation 41.1 RDW Coeff of Chet 13.0 Plt Count 140 L MPV 9.1 Immature Gran % (Auto) 0.000 Neut % (Auto) 42.1 L Lymph % (Auto) 48.4 H [place] % (Auto) 6.9 Eos % (Auto) 2.1 Baso % (Auto) 0.5 Absolute Neuts (auto) 1.8 L Absolute Lymphs (auto) 2.11 Nucleated RBC % 0 Sodium 139 Potassium 4.3 Chloride 105 Carbon Dioxide 17.5 L Anion Gap 16 H BUN 9 Creatinine 1.24 H Estim Creat Clear Calc 68.30 Est GFR (MDRD) Non-Af 55 L BUN/Creatinine Ratio 7.5 L Glucose 64 L Calcium 9.4 Total Bilirubin 0.42 AST 20 ALT 12 Alkaline Phosphatase 63 Total Protein 6.8 Albumin 4.8 Globulin 2.1 L Albumin/Globulin Ratio 2.3 Serum , Qual NEGATIVE Urine Color Yellow Urine Clarity Clear Urine pH 7.0 Ur Specific Lequire 1.010 Urine Protein 15 H Urine Glucose (UA) Normal Urine Ketones Negative Urine Occult Blood Negative Urine Nitrite Negative Urine Bilirubin Negative Urine Urobilinogen Normal Ur Leukocyte Esterase 500 H Urine RBC 0-5 SEEN Urine WBC 50-100 SEEN Ur Squamous Epith Cells 5-10 SEEN Ur Transition Epith Cell 5-10 SEEN Urine Bacteria RARE Hyaline Casts 0-5 SEEN Urine Mucus 0 SEEN Radiography Diagnostic Testing: Clinical Impression(s) from Imaging Studies Abdomen/Pelvis CT 09/11/24 22:00 IMPRESSION: Multiple nonobstructing left renal calculi with prominent left renal pelvis. No obstructing stone is visualized. Mild left perinephric stranding. Hepatosplenomegaly. [facility] Dis[facility] Triage Chief Complaint: Flank Pain ED Provider: Tin Hairston Dx/Rx/DC Orders Clinical Impression: Right flank pain, UTI (urinary tract infection) Instructions: ED Flank Pain, Uncertain Cause, ED Pyelonephritis, Female (Adult) Prescriptions: New sulfamethoxazole-trimethoprim [Bactrim DS] 800-160 mg tablet 1 tab PO BID 7 Days Qty: 14 0RF No Action clonazepam 1 mg tablet 1 mg PO BID PRN (Reason: anxiety) Qty: 60 1RF gabapentin 300 mg capsule 300 mg PO BID 30 Days Qty: 60 1RF Bariatric Multivitamins 45 mg iron- 800 mcg-120 mcg capsule PO Mounjaro 2.5 mg/0.5 mL pen injector 2.5 mg subcut QWEEK Rx Instructions: for 4 weeks potassium chloride 20 mEq tablet extended release 20 meq PO BID Patient Comments: Unsure of dose, 2 very large pills levothyroxine 25 mcg tablet 50 mcg PO DAILY ondansetron 4 mg tablet,disintegrating 4 mg PO Q8H PRN PRN (Reason: Nausea) Qty: 10 0RF colestipol 1 gram tablet 2 g PO BID Qty: 60 11RF lurasidone 120 mg tablet See Rx Instructions .ROUTE .COMPLEX Qty: 30 2RF Dose Instruction: TAKE 1 TABLET BY MOUTH EVERY NIGHT AT BEDTIME, MUST ADMINISTER WITH FOOD (at least 350 calories) Rx Instructions: TAKE 1 TABLET BY MOUTH EVERY NIGHT AT BEDTIME, MUST ADMINISTER WITH FOOD (at least 350 calories) sertraline 100 mg tablet 200 mg PO QHS Qty: 60 2RF lamotrigine 100 mg tablet 100 mg PO QDAY 30 Days Qty: 30 1RF Primary Care Provider: Hieu Gonzalez Referrals: Hieu Gonzalez MD [Primary Care Provider] - 3-5 Days Activity Restrictions/Additional Instructions: Antibiotics as directed. Your current urine culture is pending. Return to the emergency department with increased pain, fever, new or worsening symptoms. Print Language: Dominican Disposition Disposition: Home, Self Care
[2024-09-11 22:16] LABS: Mucous, Urine 0 SEEN /hpf (<or=2+)
[2024-09-11 22:19] VITALS: BP 116/78; PULSE 70; RESP 16; O2SAT 98
[2024-09-11 22:22] LABS: Color, Urine Yellow (Yellow); Glucose, Dipstick Normal (Normal); Ketone-Dipstick Negative (Negative); Leukocyte Esterase-Dipstick 500 /ul (Negative); Nitrite-Dipstick Negative (Negative); Occult Blood-Urine Negative /ul (Negative); Protein-Dipstick 15 mg/dl (Negative); Urine Bilirubin Dipstick Negative (Negative); Urine Clarity Clear (Clear); Urine Urobilinogen Normal (Normal)
[2024-09-11 23:10] LABS: Bacteria RARE /hpf (None Seen); Hyaline Cast 0-5 SEEN /lpf (0-5); Red Blood Cells-Urine 0-5 SEEN /hpf (0-5); Squamous Epithelial Cells - UA 5-10 SEEN /hpf (5-10); Transitional Epithelial - Ur 5-10 SEEN /hpf (0-5); White Blood Cells 50-100 SEEN /hpf (0-5)
[2024-09-12] VITALS: BP 112/84; PULSE 75; RESP 12; TEMP 37.1; O2SAT 98
--- NOTE | 2024-09-12 00:53 | ED.RN ---
PT. FOUND LEAVING THE DEPARTMENT. THEN PUSHED TRIAGE BUZZER ASKING TO COME BACK IN. SHE STATED I LOST MY KEYS. OFFERED PO BACTRIM AND D/C PAPERS. DECLINED MEDICATIONS AND TOOK PAPERS W/ HERE. LEAVING THE DEPARTMENT.
== END 2024-09-12 00:59 | disposition home or self-care (01) ==
PROVIDERS: Emergency Provider Emergency Medicine; PCP Family Medicine; Visit Provider Emergency Medicine
DX: R10.9 Unspecified abdominal pain (principal); F31.81 Bipolar II disorder; E11.9 Type 2 diabetes mellitus without complications; N39.0 Urinary tract infection, site not specified; I10 Essential (primary) hypertension; F41.9 Anxiety disorder, unspecified; Z79.899 Other long term (current) drug therapy; Z90.49 Acquired absence of other specified parts of digestive tract
CPT/HCPCS: 74176; 80053; 81001; 84703; 85025; 87086; 99282; A4216

== ENCOUNTER → 2024-10-12 | Outpatient (CLI) | payer OTHER, SELFPAY ==
[2024-10-17 11:08] LABS: HPV APTIMA, High Risk Negative (Negative)
== END | disposition home or self-care (01) ==
LOC: LABSPEC 11:48
PROVIDERS: PCP Family Medicine; Referring Provider Obstetrics & Gynecology; Visit Provider Obstetrics & Gynecology
DX: Z12.4 Encounter for screening for malignant neoplasm of cervix (principal)
CPT/HCPCS: 87624; 88175; G0145

== ENCOUNTER → 2025-01-23 | Outpatient (CLI) | payer OTHER, SELFPAY ==
[2025-01-23 15:29] LABS: Hematocrit 39.8 % (37-47); Hemoglobin 13.2 g/dL (12.0-15.0); Immature Granulocytes Count 0.000 X10^3/uL (0.0-0.0); Mean Corp Hgb Conc 33.2 g/dL (32-36); Mean Corpuscular Volume 90.0 fL (81-99); Mean Platelet Vol. 9.6 fl (6.2-12.0); NRBC Flagged by Analyzer 0 % (0-5); Platelet Count 147 K/mm3 (150-450); RBC Distribution Width CV 12.2 % (11.6-14.6); RBC Distribution Width SD 40.4 fl (35.1-43.9); Red Blood Count 4.42 M/mm3 (4.2-5.4); White Blood Count 4.5 K/mm3 (4.4-11.0)
[2025-01-23 15:56] LABS: Valproic Acid (Depakene) Level 44 ug/mL (50-100)
[2025-01-23 15:58] LABS: AST(SGOT) 18 U/L (<=31); Alanine Aminotransfer ALT/SGPT 14 U/L (<=34); Albumin, Serum 4.7 g/dL (3.5-5.0); Alkaline Phosphatase 55 U/L (35-104); Anion Gap 12 (5-15); BUN 20 mg/dL (4-19); BUN/Creat Ratio 20.4 RATIO (10-20); Calcium,Total 9.6 mg/dL (7.6-11.0); Carbon Dioxide 25.8 mmol/L (21.0-32.0); Chloride 101 mmol/L (98-108); Globulin 2.3 g/dL (2.2-4.2); Glucose 82 mg/dL (70-99); Potassium 4.1 mmol/L (3.3-5.1)
== END | disposition home or self-care (01) ==
LOC: MTLAB 11:28
PROVIDERS: PCP Family Medicine; Referring Provider Student in an Organized Health Care Education/Training Program; Visit Provider Student in an Organized Health Care Education/Training Program
DX: F31.9 Bipolar disorder, unspecified (principal)
CPT/HCPCS: 36415; 80053; 80164; 85025

== ENCOUNTER → 2025-02-13 | Outpatient (CLI) | payer OTHER, SELFPAY ==
[2025-02-13 18:07] LABS: Hematocrit 42.6 % (37-47); Hemoglobin 14.6 g/dL (12.0-15.0); Immature Granulocytes Count 0.010 X10^3/uL (0.0-0.0); Mean Corp Hgb Conc 34.3 g/dL (32-36); Mean Corpuscular Volume 87.8 fL (81-99); Mean Platelet Vol. 10.2 fl (6.2-12.0); NRBC Flagged by Analyzer 0 % (0-5); Platelet Count 103 K/mm3 (150-450); RBC Distribution Width CV 12.3 % (11.6-14.6); RBC Distribution Width SD 40.0 fl (35.1-43.9); Red Blood Count 4.85 M/mm3 (4.2-5.4); White Blood Count 4.6 K/mm3 (4.4-11.0)
[2025-02-13 19:06] LABS: AST(SGOT) 19 U/L (<=31); Alanine Aminotransfer ALT/SGPT 15 U/L (<=34); Albumin, Serum 5.0 g/dL (3.5-5.0); Alkaline Phosphatase 53 U/L (35-104); Anion Gap 13 (5-15); BUN 19 mg/dL (4-19); BUN/Creat Ratio 16.9 RATIO (10-20); CORTISOL PM 10.20 ug/dL (2.68-10.50); Calcium,Total 10.0 mg/dL (7.6-11.0); Carbon Dioxide 25.2 mmol/L (21.0-32.0); Chloride 100 mmol/L (98-108); Globulin 2.4 g/dL (2.2-4.2); Glucose 70 mg/dL (70-99); Potassium 4.5 mmol/L (3.3-5.1); Vitamin D,25 Hydroxy 96.3 ng/mL (30-100)
[2025-02-18 17:08] LABS: Vitamin A, Retinol 76.2 ug/dL (20.1-62.0)
== END | disposition home or self-care (01) ==
LOC: MTLAB 16:57
PROVIDERS: PCP Family Medicine; Referring Provider Family Medicine; Visit Provider Family Medicine
DX: L65.9 Nonscarring hair loss, unspecified (principal); E11.9 Type 2 diabetes mellitus without complications
CPT/HCPCS: 36415; 80053; 82306; 82533; 83036; 84590; 85025

== ENCOUNTER → 2025-03-07 | Outpatient (CLI) | payer OTHER, SELFPAY | END | disposition home or self-care (01) | LOC: LABSPEC 08:14 | PROVIDERS: PCP Family Medicine; Visit Provider Physician Assistant Surgical | DX: R30.0 Dysuria (principal) | CPT/HCPCS: 87077; 87086; 87088; 87186 ==

== ENCOUNTER → 2025-04-25 | Outpatient (CLI) | payer OTHER, SELFPAY ==
--- OUTSIDE RECORDS SUMMARY | 2025-04-25 07:31 | XMS RPT_ITS | CCD ---
Author Organization [facility] Care Team Providers Care Concert Promoter Name Role Phone Dr. Karina Gonzalez Primary Care Provider FriendDr. Duff Referring Provider FriendDr. Duff Other Provider Cliff ACCOUNTING PROFESSIONAL, ACCOUNTING PROFESSIONAL-C Elzbieta Barraza Attending Provider Dr. Karina Gonzalez Referring Provider [phone] Friend, Dr. Duff Attending Provider [phone] Karina Gonzalez MD Primary Care Provider [phone] Dr. Karina Gonzalez Primary Care Provider Dr. Karina Gonzalez Primary Care Provider [phone] Dr. Karina Gonzalez Referring Provider [phone] FriendDr. Duff Attending Provider Karina Gonzalez MD Primary Care Provider Karina Gonzalez MD Primary Care Provider Karina Gonzalez MD Primary Care Provider PROVIDER, UNKNOWN Referring Unavailable KARINA GONZALEZ A Primary Care Unavailable NEENA PIKE Attending Unavailable KARINA GONZALEZ A Primary Care Unavailable NEENA PIKE Attending Unavailable SELF Referring Unavailable GONZALEZ, KARINA A Primary Care Unavailable NEENA PIKE Attending Unavailable MERCY, KARINA A Primary Care Unavailable FRANTZ ORELLANA Referring Unav ailable MERCY, KARINA A Primary Care Unavailable KARINA GONZALEZ A Primary Care Unavailable ROSALIA GAVIRIA Referring Unavailable GONZALEZ, KARINA A Primary Care Unavailable GROMOVSKY, ROSALIA R Referring Unavailable FRANTZ ORELLANA Attending Unav ailable GONZALEZ, KARINA A Primary Care Unavailable GROMOVSKY, ROSALIA R Referring Unavailable GONZALEZ, KARINA A Primary Care Unavailable GROMOVSKY, ROSALIA R Referring Unavailable GONZALEZ, KARINA A Primary Care Unavailable TEJAL VALDES Referring Unavailable GONZALEZ, KARINA A Primary Care Unavailable CASTRO PARKS Referring Unavailable GONZALEZ, KARINA A Primary Care Unavailable LORE JANG Referring Unavailable GONZALEZ, KARINA A Primary Care Unavailable GONZALEZ, KARINA A Primary Care Unavailable GROMOVSKY, ROSALIA R Referring Unavailable AJ POMPA Attending Unav ailable Gonzalez, Karina Referring Unavailable Neymar Michael Attending Unavailable Gonzalez, Karina Primary Care Unavailable Gonzalez, Karina Primary Care Unavailable Kurtis Frausto Attending Unavailable Gonzalez, Karina Primary Care Unavailable Kurtis Frausto Attending Unavailable Gonzalez, Karina Primary Care Unavailable Gonzalez, Karina Referring Unavailable Didi Borrero Attending Unavailable Gonzalez, Karina Primary Care Unavailable Kurtis Frausto Attending Unavailable Gonzalez, Akrina Primary Care Unavailable Kurtis Frausto Attending Unavailable Kurtis Frausto Attending Unavailable Gonzalez, Karina Primary Care Unavailable Gonzalez, Karina Primary Care Unavailable Kurtis Frausto Attending Unavailable Gonzalez, Karina Primary Care Unavailable Gonzalez, Karina Referring Unavailable Gonzalez, Karina Attending Unavailable Neymar Michael Attending Unavailable Gonzalez, Karina Primary Care Unavailable Gonzalez, Karina Primary Care Unavailable Kurtis Frausto Referring Unavailable Kurtis Frausto Attending Unavailable Gonzalez, Karina Primary Care Unavailable Gonzalez, Karina Referring Unavailable Neymar Michael Attending Unavailable Gonzalez, Karina Primary Care Unavailable Didi Borrero Referring Unavailable Didi Borrero Attending Unavailable Gonzalez, Karina Primary Care Unavailable Tin Hairston Attending Unavailable Gonzalez, Karina Primary Care Unavailable Didi Borrero Referring Unavailable Didi Borrero Attending Unavailable Gonzalez, Karina Referring Unavailable Gonzalez, Karina Attending Unavailable Gonzalez, Karina Primary Care Unavailable Gonzalez, Karina Primary Care Unavailable Hakeem López Attending Unavailable Gonzalez, Karina Primary Care Unavailable Kurtis Frausto Attending Unavailable Gonzalez, Karina Primary Care Unavailable Kurtis Frausto Attending Unavailable Gonzalez, Karina Primary Care Unavailable Kurtis Frausto Attending Unavailable CLAUDIA GUILLAUME Attending Unavailable GONZALEZ, KARINA A Primary Care Unavailable GONZALEZ, KARINA A Primary Care Unavailable ABIGAIL MCDERMOTT Attending Unavailable TEJAL VALDES Attending Unavailable GONZALEZ, KARINA A Primary Care Unavailable CLAUDIA GUILLAUME Attending Unavailable GONZALEZ, KARINA A Primary Care Unavailable TEJAL VALDES Attending Unavailable GONZALEZ, KARINA A Primary Care Unavailable CLAUDIA GUILLAUME Attending Unavailable GONZALEZ, KARINA A Primary Care Unavailable TEJAL VALDES Attending Unavailable GONZALEZ, KARINA A Primary Care Unavailable CLAUDIA GUILLAUME Attending Unavailable GONZALEZ, KARINA A Primary Care Unavailable NEENA PIKE Attending Unavailable GONZALEZ, KARINA A Primary Care Unavailable ROSALIA GAVIRIA Attending Unavailable GONZALEZ, KARINA A Primary Care Unavailable CLAUDIA GUILLAUME Attending Unavailable LEWIS GONZALEZIC A Primary Care Unavailable Medications Current Medications Medication Drug Class(es) Dates Sig (Normalized) Sig (Original) amitriptyline hydrochloride 25 mg oral tablet (20 sources) Tricyclic Antidepressant Start: 12-13-2021 take 1 tablet by mouth at bedtime Amitriptyline Active 0.5 - 2 TABLET PO AT BEDTIME December 13, 2021 12:00am End: 10-05-2023 amitriptyline HCl (AMITRIPTY LINE ORAL) Take by mouth. 0 10/05/2023 Discontinued (Course of therapy completed) amitriptyline HC l (AMITRIPTYLINE ORAL) Take by mouth. 0 Active Comment on above: Take by mouth. amLODIPine 5 mg oral tablet (20 sources) Dihydropyridine Calcium Channel Rosalie take 2.5 mg by mouth once daily amLODIPine (NORVASC) 5 mg tablet Take 2.5 mg by mouth once daily. Active take 1 tablet by mouth once gale y amLODIPine (NORVASC) 5 mg tablet Take 5 mg by mouth once daily. Active amoxicillin 500 mg oral capsule (2 sources) Penicillin-class Antibacterial Start: 07-19-2022 End: 07-29-2022 take 1 capsule by mouth twice daily amoxicillin (POLYMOX, AMOXIL) 500 mg capsule Indications: Strep throat Take 1 capsule by mouth twice daily for 10 days. 20 capsule 0 07/19/2022 07/29/2022 Active Comment on above: Take 1 capsule by [facility] twice daily for 10 days. atropine sulfate 0.025 mg / diphenoxylate hydrochloride 2.5 mg oral tablet (4 sources) Anticholinergic, Cholinergic Muscarinic Antagonist, Antidiarrheal Start: 03-12-2021 take 1 tablet by mouth twice daily Diphenoxylate-Atr opine (Lomotil) 2.5-0.025 mg tablet Active 1 TABLET PO TWICE A DAY March 12, 2021 5:49pm bevacizumab 0.625 mg in syringe 0.025 mL (AVASTIN) (5 sources) take 0.625 mg into the eye(s) once bevacizumab 0.625 mg in syringe 0.025 mL (AVASTIN) Use 0.625 mg in the right eye one time only. Active biotin 1 mg oral capsule (20 sources) biotin 1 mg cap Take by mouth once daily. Active bisoprolol fumarate 10 mg oral tablet (20 sources) beta-Adrenergic Rosalie Start: 02-05-2019 End: 10-05-2023 take 10 mg by mouth once daily Bisoprolol Fumarate Active 10 MG PO DAILY February 05, 2019 12:00am Comment on above: Take 10 mg by mouth once daily. clonazePAM 1 mg oral tablet (20 sources) Benzodiazepine Start: 02-28-2024 take 1 tablet by mouth every twelve hours as needed clonazePAM (KLONOPIN) 1 mg tablet Take 1 mg by mouth two times a day as needed for anxiety. 02/28/2024 Active Start: 02-05-2019 End: 10-05-2023 take 1 mg by mouth twice daily Clonazepam (Klonopin) 2 mg tablet Active 1 MG PO TWICE A DAY February 05, 2019 12:00am Comment on above: Take 1 mg by mouth t wice daily as needed. colestipol hydrochloride 1000 mg oral tablet (20 sources) Bile Acid Sequestrant Start: take 2 tablets by mouth once daily at bedtime colestipol (COLESTID) 1 gram tablet Take 2 g by mouth daily at bedtime. 02/20/2024 Active Start: 03-27-2021 End: 12-13-2021 take 2 tablets by mouth twice daily Colestipol Discontinued 0 .ROUTE .COMPLEX 120 October 12, 2021 12:42pm December 13, 2021 11:29am TAKE TWO TABLETS BY MOUTH 2 TIMES A DAY colestipol HCl ( COLESTIPOL ORAL) Take by mouth. Active colestipol HCl ( COLESTIPOL ORAL) Take by mouth. 0 Active Comment on above: Take by mouth. gabapentin 300 mg oral capsule (20 sources) Anti-epileptic Agent Start: 02-28-2024 take 1 capsule by mouth twice daily gabapentin (NEURONTIN) 300 mg capsule Take 300 mg by mouth two times a day. 02/28/2024 Active take 3 capsules by mouth twice d aily gabapentin (NEURONTIN) 100 mg capsule Take 300 mg by mouth two times a day. Active take 2 capsules by m outh three times daily gabapentin (NEURONTIN) 100 mg capsule Ta ke 200 mg by mouth three times a day. 0 Active glimepiride 2 mg oral tablet (4 sources) Sulfonylurea Start: 03-12-2021 take 2 mg by mouth once daily Glimepiride Active 2 MG PO DAILY March 12, 2021 2:35pm hydroCHLOROthiazide 25 mg / triamterene 37.5 mg oral tablet (20 sources) Potassium-sparing Diuretic, Thiazide Diuretic Start: 12-13-2021 take 1 tablet by mouth once daily Triamterene-Hydr ochlorothiazid Active 1 TABLET PO DAILY December 13, 2021 12:00am Start: 10-23-2021 End: 10-05-2023 triamterene-hydroCHLOROthiaz lilliam (MAXZIDE-25) 37.5-25 mg per tablet lamoTRIgine 25 mg oral tablet (6 sources) Mood Stabilizer, Anti-epileptic Agent take 2 tablets by mouth once daily lamoTRIgine (LAMICTAL) 25 mg tablet Take 50 mg by mouth once daily. Active End: 10-26-2021 take 1 tablet by mouth once daily lamoTRIgine (LAMICTAL) 200 mg tablet Take 200 mg by mouth once daily. 0 10/26/2021 Discontinued Comment on above: Take 200 mg by mouth once daily. levothyroxine sodium 0.025 mg oral tablet (20 sources) l-Thyroxine Start: 12-13-2021 take 25 ug by mouth once daily Levothyroxine Active 25 MCG PO DAILY December 13, 2021 12:00am levothyroxine 50 mcg cap Take 25 mcg by mouth daily before breakfast. Active take 1 capsule by mo uth once daily before breakfast levothyroxine 50 mcg cap Take 50 mcg by mouth daily before breakfast. Active Comment on above: Take 50 mcg by mouth daily before breakfast. lithium carbonate 300 mg oral capsule (20 sources) Start: 09-08-2020 take 1500 mg by mouth at bedtime [place] Carbonate Active 1500 MG PO AT BEDTIME September 08, 2020 2:32am Start: 09-08-2020 take 900 mg by mouth at bedtim e [place] Carbonate Active 900 MG PO AT BEDTIME September 08, 2020 12:00am End: 10-05-2023 take 3 tablets by mouth twice daily lithium carbonate 300 mg tablet Take 900 mg by mouth twice daily. 0 10/05/2023 Discontinued (Course of therapy completed) Comment on above: Take 900 mg by mouth twice daily. lurasidone hydrochloride 80 mg oral tablet (20 sources) Atypical Antipsychotic Start: 12-13-2021 Lurasidone (Latuda) 80 mg Tablet Active 80 MG PO DAILY December 13, 2021 12:00am must administer with food (at least 350 calories) Start: 09-08-2020 take 120 mg by mouth once daily Lurasidone Active 120 MG PO DAILY September 08, 2020 2:32am End: 10-05-2023 lurasidone (LATUDA) 80 mg ta blet Take by mouth. 0 10/05/2023 Discontinued (Course of therapy completed) Comment on above: Take by mouth. metFORMIN hydrochloride 500 mg oral tablet (20 sources) Biguanide Start: 03-12-2021 take 1000 mg by mouth twice daily Metformin Active 1000 MG PO TWICE A DAY March 12, 2021 12:00am End: 08-17-2024 take 1 tablet by mouth once daily at breakfast metFORMIN ER (FORTAMET) 500 mg 24 hr tablet Take 1,000 mg by mouth daily with breakfast. 08/17/2024 Discontinued (Course of therapy completed) take 1 tablet by agustín th twice daily metFORMIN ER (FORTAMET) 500 mg 24 hr tablet Take 1,000 mg by mouth two times a day. Active take 1 tablet by agustín th twice daily metFORMIN ER (FORTAMET) 500 mg 24 hr tablet Take 500 mg by mouth two times a day. 0 Active End: 10-05-2023 take 1 tablet by mouth twice daily at mealtime metFORMIN (GLUCOPHAGE) 500 mg tablet Take 500 mg by mouth twice daily with meals. 0 10/05/2023 Discontinued (Course of therapy completed) Comment on above: Take 500 mg by mouth twice daily with meals. nitrofurantoin, macrocrystals 25 mg / nitrofurantoin, monohydrate 75 mg oral capsule (4 sources) Nitrofuran Antibacterial Start: take 1 capsule by mouth every twelve hours at mealtime Nitrofurantoin Monohyd/M-Cryst (Macrobid) 100 mg capsule Active 100 MG PO Q12H 03 17March 12, 2021 5:50pm must administer with a meal/food omeprazole 20 mg delayed release oral capsule (4 sources) Proton Pump Inhibitor Start: take 20 mg by mouth once daily Omeprazole Active 20 MG PO DAILY July 29, 2021 4:04pm ondansetron 4 mg oral tablet (20 sources) Serotonin-3 Receptor Antagonist Start: End: take 1 tablet by mouth every eight hours as needed for obesity and nausea and obesity and nausea ondansetron (ZOFRAN) 4 mg tablet Indications: Class 2 obesity with body mass index (BMI) of 37.0 to 37.9 in adult, unspecified obesity type, unspecified whether serious comorbidity present , Nausea Take 1 tablet by mouth every 8 hours as needed for nausea/vomiting (for nausea.). 21 tablet 05/09/2024 Active Start: 12-13-2021 take 4 mg by mouth e very eight hours as needed Ondansetron Active 4 MG PO EVERY 8 HOURS NEEDED December 13, 2021 12:00am Start: 03-12-2021 take 4 mg by mouth e very six hours Ondansetron Active 4 MG PO EVERY 6 HOURS March 12, 2021 7:48pm pantoprazole 40 mg delayed release oral tablet (20 sources) Proton Pump Inhibitor Start: 03-12-2024 End: 09-16-2024 take 1 tablet by mouth once daily pantoprazole DR (PROTONIX) 40 mg tablet Indications: S/P laparoscopic sleeve gastrectomy Take 1 tablet by mouth once daily. TO START AFTER SURGERY. Take every day for 6 months after surgery. 30 tablet 08/17/2024 Active Start: 09-09-2020 End: 10-09-2020 take 20 mg by mouth twice daily Pantoprazole Discontinued 20 MG PO TWICE A DAY 60 September 09, 2020 12:00am October 09, 2020 12:01am phentermine hydrochloride 30 mg oral capsule (7 sources) Sympathomimetic Amine Anorectic Start: 11-20-2021 take 30 mg by mouth once daily 2 hour(s) after breakfast Phentermine Active 30 MG PO DAILY November 20, 2021 12:00am must administer 2 hours after breakfast potassium chloride 20 meq extended release oral tablet (16 sources) Start: 12-13-2021 take 15 mEq by mouth once daily Potassium Chloride Active 15 MEQ PO DAILY December 13, 2021 11:29am Start: 03-12-2021 End: 12-13-2021 take 20 mEq by mouth once daily Potassium Chloride Discontinued 20 MEQ PO DAILY March 12, 2021 12:00am December 13, 2021 11:29am potassium citrate 15 meq extended release oral tablet (20 sources) take 15 mEq by mouth once daily POTASSIUM CITRATE ORAL Take 15 mEq by mouth once daily. Active sertraline 100 mg oral tablet (20 sources) Serotonin Reuptake Inhibitor Start: 09-08-2020 take 100 mg by mouth once daily Sertraline Active 100 MG PO DAILY September 08, 2020 12:00am take 2 tablets by [facility] once daily sertraline (ZOLOFT) 100 mg tablet Take 200 mg by mouth once daily. Active End: 10-05-2023 sertraline HCl (ZOLOFT ORAL) Take by mouth. 0 10/05/2023 Discontinued (Course of therapy completed) sertraline HCl ( ZOLOFT ORAL) Take by mouth. 0 Active Comment on above: Take by mouth. spironolactone 100 mg oral tablet (5 sources) Aldosterone Antagonist Start: 2018 End: 2021 take 100 mg by mouth once daily Spironolactone Active 100 MG PO DAILY September 08, 2020 2:32am Comment on above: Take 100 mg by mouth once daily. sulfamethoxazole 800 mg / trimethoprim 160 mg oral tablet (6 sources) Dihydrofolate Reductase Inhibitor Antibacterial, Sulfonamide Antimicrobial Start: 2021 take 1 tablet by mouth twice daily Sulfamethoxazole-Tri methoprim Active 1 TABLET PO TWICE A DAY December 13, 2021 12:00am tirzepatide, weight loss (ZEPBOUND) 2.5 mg/0.5 mL solution (5 sources) Start: 2024 inject 0.5 mL by subcutaneous injection every week tirzepatide, weight loss (ZEPBOUND) 2.5 mg/0.5 mL solution Indications: Overweight , S/P laparoscopic sleeve gastrectomy , NAFLD (nonalcoholic fatty liver disease) Inject 0.5 mL subcutaneously one time a week. 2 mL 08/21/2024 Active Start: 08-17-2024 End: 09-16-2024 inject 0.5 mL by subcutaneous injection every week tirzepatide, weight loss (ZEPBOUND) 2.5 mg/0.5 mL solution Indications: Overweight , S/P laparoscopic sleeve gastrectomy , NAFLD (nonalcoholic fatty liver disease) , Hypertension, unspecified type , Hyperlipidemia, unspecified hyperlipidemia type Inject 0.5 mL subcutaneously one time a week. 2 mL 08/17/2024 09/16/2024 Active topiramate 50 mg oral tablet (20 sources) Start: 11-24-2021 Topiramate Act anaid 100 MG PO AT BEDTIME 60 November 24, 2021 3:28pm take two tabs each evening Start: 11-20-2021 End: 11-24-2021 take 100 mg by mouth at bedtime Topiramate Discontinue d 100 MG PO AT BEDTIME November 20, 2021 12:00am November 24, 2021 3:28pm End: 08-17-2024 topiramate (TOPAMAX) 100 mg tablet Take 150 mg by mouth once daily. 08/17/2024 Discontinued (Course of therapy completed) traMADol hydrochloride 50 mg oral tablet (1 source) Opioid Agonist Start: 03-20-2024 End: 03-23-2024 take 1 tablet by mouth every eight hours as needed for pain traMADol (ULTRAM) 50 mg tablet Indications: S/P laparoscopic sleeve gastrectomy Take 1 tablet by mouth every 8 hours as needed for pain for up to 3 days. 9 tablet 03/20/2024 03/23/2024 Active vitamin b complex capsule (20 sources) take 1 capsule by mouth once daily vitamin b complex capsule Take 1 capsule by mouth once daily. Active Completed/Discontinued Medications Medication Drug Class(es) Dates Sig (Normalized) Sig (Original) acetaminophen 500 mg oral tablet (18 sources) Start: 03-12-2024 End: 05-18-2024 take 2 tablets by mouth every six hours as needed for obesity and obesity acetaminophen (TYLENOL) 500 mg tablet Indications: Class 2 obesity with body mass index (BMI) of 37.0 to 37.9 in adult, unspecified obesity type, unspecified whether serious comorbidity present Take 2 tablets by mouth every 6 hours as needed for pain. TO START AFTER SURGERY 15 tablet 03/20/2024 05/18/2024 Discontinued acetaminophen 325 mg / oxyCODONE hydrochloride 5 mg oral tablet (17 sources) Opioid Agonist End: 05-18-2024 take 1 tablet by mouth every eight hours as needed oxyCODONE-acetamin ophen (PERCOCET) 5-325 mg tablet Take 1 tablet by mouth every 8 hours as needed for pain (HAD SURGERY 03/06/24). LAST DAY PER PATIENT 03/13/24 05/18/2024 Discontinued acetaZOLAMIDE 250 mg oral tablet (1 source) Carbonic Anhydrase Inhibitor Start: 07-28-2018 End: 10-26-2021 acetaZOLAMIDE (DIAMOX) 250 mg tablet ARIPiprazole 10 mg oral tablet (1 source) Atypical Antipsychotic Start: 08-04-2018 End: 10-26-2021 ARIPiprazole (ABILIFY) 10 mg tablet benzonatate 100 mg oral capsule (11 sources) Non-narcotic Antitussive Start: 10-28-2018 End: 10-26-2021 benzonatate (TESSALON PERLE) 100 mg capsule Take 1-2 capsules tid prn 30 capsule 0 10/28/2018 10/26/2021 Discontinued Start: 09-16-2015 End: 02-05-2019 take 200 mg by mouth three times daily as needed Benzonatate Discontinued 200 MG PO 3 TIMES DAILY NEEDED September 16, 2015 12:00am February 05, 2019 2:39pm Comment on above: Take 1-2 capsules ti d prn cholecalciferol 1.25 mg oral capsule (20 sources) Vitamin D Start: 4 End: 4 take 7128-1054 [IU] by mouth once daily cholecalciferol, Vitamin D3, (VITAMIN D3) 1,250 mcg (50,000 unit) cap capsule Indications: vitamin D deficiency Take 1 capsule by mouth one time a week for 12 doses. Transition to 2,000-4,000 units of Vitamin D OTC after completing 12 weeks 12 capsule 12/19/2023 05/18/2024 Discontinued clomiPHENE citrate 50 mg oral tablet (1 source) Estrogen Agonist/Antagonis t Start: 8 End: clomiPHENE (SEROPHENE) 50 mg tablet Take 2 tabs by mouth cycle day 3-7. 10 tablet 1 06/28/2017 10/26/2021 Discontinued Comment on above: Take 2 tabs by mouth cycle day 3-7. dulaglutide (18 sources) GLP-1 Receptor Agonist End: dulaglutide (TRULICITY SUBCUTANEOUS) Inject subcutaneously. 0 10/05/2023 Discontinued (Course of therapy completed) dulaglutide (NAYANA LICITY SUBCUTANEOUS) Inject subcutaneously. 0 Active Comment on above: Inject subcutaneousl y. 21 day ethinyl estradiol 0.671666 mg/hr / etonogestrel 0.005 mg/hr vaginal system (1 source) Progestin, Estrogen Start: 019 End: 022 NUVARING 0.12-0.015 mg/24 hr vaginal ring fenofibrate 145 mg oral tablet (20 sources) Peroxisome Proliferator Receptor alpha Agonist Start: 024 End: 025 take 1 tablet by mouth once daily fenofibrate nanocrystallized (TRICOR) 145 mg tablet Take 145 mg by mouth once daily. 01/19/2024 08/17/2024 Discontinued (Course of therapy completed) FENOFIBRATE MICR ONIZED 145 MG TAB 145 mg once daily. Active FENOFIBRATE MICR ONIZED 145 MG TAB 145 mg once daily. 0 Active folic acid 1 mg oral tablet (10 sources) Start: 09-09-2020 End: 10-09-2020 take 2 mg by mouth once daily Folic Acid Discontinued 2 MG PO DAILY@0800 30 September 09, 2020 12:00am October 09, 2020 12:01am hydroCHLOROthiazide 25 mg oral tablet (1 source) Thiazide Diuretic Start: 10-12-2018 End: 10-26-2021 hydroCHLOROthiazide (HYDRODIURIL, ESIDRIX) 25 mg tablet letrozole 2.5 mg oral tablet (12 sources) Aromatase Inhibitor Start: 11-03-2021 End: 10-05-2023 letrozole (FEMARA) 2.5 mg tablet Take 1 tablet by mouth once daily. Cycle days 3-7 5 tablet 2 11/03/2021 10/05/2023 Discontinued (Course of therapy completed) Comment on above: Take 1 tablet by agustín th once daily. Cycle days 3-7 levoFLOXacin 750 mg oral tablet (10 sources) Quinolone Antimicrobial Start: 09-16-2015 End: 02-05-2019 take 750 mg by mouth once daily Levofloxacin Discontinued 750 MG PO DAILY September 16, 2015 12:00am February 05, 2019 2:40pm MEDICATION, NON-DATABASE (16 sources) End: 10-05-2023 MEDICATION, NON-DATABASE Neurtec 0 10/05/2023 Discontinued (Course of therapy completed) MEDICATION, NON- DATABASE Neurtec 0 Active Comment on above: Neurtec medroxyPROGESTERone acetate 10 mg oral tablet (1 source) Progestin Start: 2016 End: 2021 take 1 tablet by mouth once daily medroxyPROGESTERone (PROVERA) 10 mg tablet Take 1 tablet by mouth once daily. FOR 10 DAYS. 10 tablet 0 10/27/2016 10/26/2021 Discontinued Comment on above: Take 1 tablet by agustín th once daily. FOR 10 DAYS. #92-IRON-FA #8-PS-DHA ORAL (18 sources) End: 2023 #92-IRON-FA #8-PS-DHA ORAL Take by mouth once daily. 0 10/05/2023 Discontinued (Course of therapy completed) #92-IRO N-FA #8-PS-DHA ORAL Take by mouth once daily. 0 Active Comment on above: Take by mouth once d aily. PV W-O VIT A/FE FUMARATE/FA (, W/O VIT A,-FE FUM-FA ORAL) (1 source) End: PV W-O VIT A/FE FUMARATE/FA (, W/O VIT A,-FE FUM-FA ORAL) Take by mouth. 0 10/26/2021 Discontinued Comment on above: Take by mouth. telmisartan 40 mg oral tablet (20 sources) Angiotensin 2 Receptor Rosalie End: take 1 tablet by mouth once daily telmisartan (MICARDIS) 40 mg tablet Take 40 mg by mouth once daily. 08/17/2024 Discontinued (Course of therapy completed) thiamine 100 mg oral tablet (10 sources) Start: End: 04-29-2 021 take 100 mg by mouth once daily at mealtime Thiamine Hcl (Vitamin B1) Discontinued 100 MG PO DAILY WITH MEALS September 09, 2020 12:00am October 09, 2020 12:01am tirzepatide (MOUNJARO) 2.5 mg/0.5 mL pen injector (9 sources) End: 025 inject 2.5 mg by subcutaneous injection every week tirzepatide (MOUNJARO) 2.5 mg/0.5 mL pen injector Inject 2.5 mg subcutaneously one time a week. 08/17/2024 Discontinued inject 2.5 mg by sub cutaneous injection every week tirzepatide (MOUNJARO) 2.5 mg/0.5 mL pen injector Inject 2.5 mg subcutaneously one time a week. Active tiZANidine (18 sources) Central alpha-2 Adrenergic Agonist End: 10-05-2023 tizanidine HCl (TIZANIDINE ORAL) Take by mouth. 0 10/05/2023 Discontinued (Course of therapy completed) tizanidine HCl ( TIZANIDINE ORAL) Take by mouth. 0 Active Comment on above: Take by mouth. divalproex sodium 500 mg delayed release oral tablet (9 sources) Mood Stabilizer, Anti-epileptic Agent End: 08-17-2024 take 2 tablets by mouth once daily at bedtime divalproex DR (DEPAKOTE) 500 mg EC tablet Take 1,000 mg by mouth daily at bedtime. 08/17/2024 Discontinued (Course of therapy completed) Problems Active Problems Problem Classification Problem Date Documented Da te Episodic/Chronic Alcohol-related disorders (20 sources) Alcoholic fatty liver; Translations: [Alcoholic fatty liver] Chronic Anxiety disorders (1 source) Generalized anxiety disorder; Translations: [Generalized anxiety disorder] Onset: Chronic Coagulation and hemorrhagic disorders (2 sources) Thrombocytopenic disorder; Translations: [Thrombocytopenia, unspecified] 06-19-2024 Chronic Disorders of lipid metabolism (20 sources) Hyperlipidemia; Translations: [Hyperlipidemia, unspecified] Onset: 4 10-05-2023 Chronic Essential hypertension (20 sources) Hypertensive disorder; Translations: [Essential (primary) hypertension] Onset: 4 10-05-2023 Chronic Female infertility (20 sources) Secondary anovulatory infertility ; Translations: [Female infertility associated with anovulation] Onset: 6 Chronic Fever of unknown origin (10 sources) Intermittent fever; Translations: [Fever, unspecified] Episodic Genitourinary symptoms and ill-defined conditions (1 source) Dysuria; Translations: [Dysuria] Onset: 5 Episodic Immunizations and screening for infectious disease (11 sources) Patient encounter status; Translations: [Encounter for screening for human papillomavirus (HPV)] Episodic Menstrual disorders (20 sources) Secondary oligomenorrhea; Translations: [Secondary oligomenorrhea] Onset: 6 05-28-2016 Chronic Miscellaneous mental health disorders (4 sources) Eating disorder; Translations: [Eating disorder, unspecified] 09-28-2023 Chronic Mood disorders (20 sources) Bipolar disorder; Translations: [Bipolar disorder, unspecified] Onset: 5 03-31-2015 Chronic Nausea and vomiting (17 sources) Nausea, vomiting and diarrhea; Translations: [Nausea with vomiting, unspecified] 05-09-2024 Episodic Noninfectious gastroenteritis (20 sources) Gastroenteritis; Translations: [Noninfective gastroenteritis and colitis, unspecified] 12-07-2023 Episodic Nutritional deficiencies (5 sources) Vitamin D deficiency; Translations: [Vitamin D deficiency, unspecified] Onset: 4 12-19-2023 Chronic Other diseases of kidney and ureters (3 sources) Abnormal renal function; Translations: [Disorder of kidney and ureter, unspecified] 12-19-2023 Episodic Other gastrointestinal disorders (10 sources) Diarrhea; Translations: [Diarrhea, unspecified] Episodic Other gastrointestinal disorders (14 sources) Diarrhea, unspecified; Translations: [Diarrhea] Episodic Other gastrointestinal disorders (5 sources) History of sleeve gastrectomy; Translations: [Bariatric surgery status] 03-28-2024 Episodic Other liver diseases (11 sources) Non-alcoholic fatty liver; Translations: [Fatty (change of) liver, not elsewhere classified] 02-17-2024 Chronic Other liver diseases (20 sources) Fatty (change of) liver, not elsewhere classified; Translations: [Other chronic nonalcoholic liver disease] Onset: 4 12-06-2023 Chronic Other nutritional; endocrine; and metabolic disorders (10 sources) Morbid obesity; Translations: [Morbid (severe) obesity due to excess calories] Chronic Other nutritional; endocrine; and metabolic disorders (20 sources) Obesity; Translations: [Obesity, unspecified] Onset: 2 Chronic Other nutritional; endocrine; and metabolic disorders (20 sources) Body mass index 30+ - obesity; Translations: [Obesity, unspecified] Onset: 4 02-17-2024 Chronic Other nutritional; endocrine; and metabolic disorders (8 sources) Obesity, unspecified; Translations: [Obesity, unspecified] Onset: 4 Chronic Other nutritional; endocrine; and metabolic disorders (4 sources) Severe obesity; Translations: [Morbid (severe) obesity due to excess calories] 12-06-2023 Chronic Other nutritional; endocrine; and metabolic disorders (3 sources) Morbid (severe) obesity due to excess calories; Translations: [Class 2 severe obesity with serious comorbidity and body mass index (BMI) of 39.0 to 39.9 in adult, unspecified obesity type (HCC)] Onset: 2 Chronic Other nutritional; endocrine; and metabolic disorders (2 sources) Body mass index (BMI) 39.0-39.9, adult; Translations: [Class 2 severe obesity with serious comorbidity and body mass index (BMI) of 39.0 to 39.9 in adult, unspecified obesity type (HCC)] Onset: 4 Chronic Other nutritional; endocrine; and metabolic disorders (20 sources) Obese class II; Translations: [Obesity, Class II, BMI 35-39.9] Onset: 4 03-19-2024 Chronic Other nutritional; endocrine; and metabolic disorders (1 source) Body mass index (BMI) 36.0-36.9, adult; Translations: [Class 2 severe obesity due to excess calories with serious comorbidity and body mass index (BMI) of 36.0 to 36.9 in adult (HCC)] Onset: 2 Chronic Other nutritional; endocrine; and metabolic disorders (1 source) Body mass index (BMI) 35.0-35.9, adult; Translations: [Class 2 obesity with body mass index (BMI) of 35.0 to 35.9 in adult, unspecified obesity type, unspecified whether serious comorbidity present] Onset: 4 Chronic Other nutritional; endocrine; and metabolic disorders (1 source) Body mass index (BMI) 37.0-37.9, adult; Translations: [Class 2 obesity with body mass index (BMI) of 37.0 to 37.9 in adult, unspecified obesity type, unspecified whether serious comorbidity present] Onset: 5 Chronic Other nutritional; endocrine; and metabolic disorders (2 sources) Overweight; Translations: [Overweight] 06-22-2024 Episodic Other skin disorders (1 source) Nonscarring hair loss, unspecified; Translations: [Nonscarring hair loss, unspecified] Onset: 5 Episodic Other upper respiratory infections (2 sources) Sore throat symptom; Translations: [Acute pharyngitis, unspecified] Episodic Residual codes; unclassified (1 source) Obstructive sleep apnea syndrome; Translations: [Obstructive sleep apnea (adult) (pediatric)] 01-31-2024 Chronic Retinal detachments; defects; vascular occlusion; and retinopathy (20 sources) Central retinal vein occlusion; Translations: [Central retinal vein occlusion, unspecified eye, stable] Onset: 4 12-06-2023 Chronic Thyroid disorders (20 sources) Hypothyroidism; Translations: [Hypothyroidism, unspecified] Onset: 4 12-06-2023 Chronic Unclassified (1 source) Cough, unspecified; Translations: [Cough, unspecified] Onset: 5 Unclassified (1 source) Class 2 obesity with body mass index (BMI) of 37.0 to 37.9 in adult, unspecified obesity type, unspecified whether serious comorbidity present; Translations: [Class 2 obesity with body mass index (BMI) of 37.0 to 37.9 in adult, unspecified obesity type, unspecified whether serious comorbidity present] Onset: 5 Unclassified (1 source) Post Op Follow Up Onset: 4 Urinary tract infections (16 sources) Urinary tract infectious disease; Translations: [Urinary tract infection, site not specified] Episodic Past or Other Problems Problem Classification Problem Date Documented Da te Episodic/Chronic Abdominal pain (20 sources) Abdominal pain; Translations: [Unspecified abdominal pain] Onset: 5 Episodic Administrative/social admission (4 sources) Treatment plan given; Translations: [Counseling, unspecified] Onset: 5 Episodic Calculus of urinary tract (20 sources) Staghorn calculus; Translations: [Calculus of kidney] Onset: 4 12-06-2023 Episodic Diabetes mellitus without complication (20 sources) Prediabetes; Translations: [Prediabetes] Onset: 4 12-06-2023 Episodic Fluid and electrolyte disorders (20 sources) Hypokalemia, gastrointestinal losses; Translations: [Hypokalemia] Onset: 4 03-13-2024 Episodic Other diseases of kidney and ureters (1 source) Disorder of kidney and ureter, unspecified; Translations: [Abnormal kidney function] Onset: 4 Episodic Other gastrointestinal disorders (2 sources) Bariatric surgery status; Translations: [S/P laparoscopic sleeve gastrectomy] Onset: 5 Episodic Other nutritional; endocrine; and metabolic disorders (1 source) Overweight; Translations: [Overweight] Onset: 5 Episodic Other screening for suspected conditions (not mental disorders or infectious disease) (20 sources) Other specified abnormal findings of blood chemistry; Translations: [Elevated liver function tests] Onset: 5 Resolved: 6 Episodic Substance-related disorders (20 sources) Marijuana user; Translations: [Cannabis use, unspecified, uncomplicated] Onset: 4 01-31-2024 Episodic Unclassified (10 sources) Infertile; Translations: [Infertility] Results Test Name Value Interpretation Reference Range Facility [facility] 04-04-2025 [facility] Telephone (AGGENS4) MARIIA DAVIDSON ([id number]) 1980 F Date Time Provider Department 04/04/25 ROSALIA GAVIRIA4 During your visit today, we recorded the following information about you: Atif Larry 04/04/2025 11:53 AM Signed [facility] Pt needs: - 2 yr P/O-Bypass 03/19/24-Ashia with [employer] - Please schedule with psychology next available. Allergies As of Date: 04/04/2025 (No Known Allergies) Date Reviewed: 04/04/2025 Reviewed by: Rosalia Gaviria APRN.TSO - Fully Assessed Prescriptions as of 04/04/2025 - tirzepatide, weight loss (ZEPBOUND) 2.5 mg/0.5 mL solution Inject 0.5 mL subcutaneously one time a week. - lamoTRIgine (LAMICTAL) 25 mg tablet Take 50 mg by mouth once daily. - bevacizumab 0.625 mg in syringe 0.025 mL (AVASTIN) Use 0.625 mg in the right eye one time only. - ondansetron (ZOFRAN) 4 mg tablet Take 1 tablet by mouth every 8 hours as needed for nausea/vomiting (for nausea.). - biotin 1 mg cap Take by mouth once daily. - vitamin b complex capsule Take 1 capsule by mouth once daily. - gabapentin (NEURONTIN) 300 mg capsule Take 300 mg by mouth two times a day. - colestipol (COLESTID) 1 gram tablet Take 2 g by mouth daily at bedtime. - clonazePAM (KLONOPIN) 1 mg tablet Take 1 mg by mouth two times a day as needed for anxiety. - amLODIPine (NORVASC) 5 mg tablet Take 2.5 mg by mouth once daily. - lurasidone (LATUDA) 120 mg tablet Take by mouth once daily. - POTASSIUM CITRATE ORAL Take 15 mEq by mouth once daily. - sertraline (ZOLOFT) 100 mg tablet Take 200 mg by mouth once daily. - levothyroxine 50 mcg cap Take 25 mcg by mouth daily before breakfast. Problem List As Of Date 04/04/2025 Noted Resolved Bipolar disorder (HCC) [F31.9] 03/31/2015 Ultrasound scan to check weight, previous*03/31/2015 05/28/2016 Previous section [Z98.891] 03/31/2015 05/28/2016 Secondary anovulatory infertility [N97.0] 05/28/2016 Secondary oligomenorrhea [N91.4] 05/28/2016 Class 2 obesity with body mass index (BMI) of 3*10/30/2021 Hypothyroidism [E03.9] 12/06/2023 HTN (hypertension) [I10] 12/06/2023 Nephrolithiasis [N20.0] 12/06/2023 Non-alcoholic fatty liver disease [K76.0] 12/06/2023 Pre-diabetes [R73.03] 12/06/2023 Central vein occlusion of retina [H34.8192] 12/06/2023 Body mass index 37.0-37.9, adult [Z68.37] 03/12/2024 HLD (hyperlipidemia) [E78.5] 03/12/2024 Medical marijuana use [Z79.899] 03/12/2024 Pre-op examination [Z01.818] 03/12/2024 Hypokalemia due to excessive gastrointestinal l*03/13/2024 Obesity, Class II, BMI 35-39.9 [E66.812] 03/19/2024 Encounter Status:Closed by ATIF LARRY on 04/04/25 Normal [facility] Urine Cultureon 03-10-2025 [facility] Staphylococcus haemolyticus [place] Count 50,000-80,000 Streptococcus agalactiae (B) Streptococcus agalactiae (B) Staphylococcus haemolyticus: REACTION cefOXitin Susc Islt POS Doxycycline Islt RADHA <=0.5 Clindamycin.induced Susc Islt POS Gentamicin Islt RADHA <=0.5 S Linezolid Islt RADHA 2 S Nitrofurantoin Islt RADHA <=16 S Oxacillin Susc Islt 2 R Tetracycline Islt RADHA <=1 S TMP SMX Islt RADHA <=10 S Vancomycin Islt RADHA <=0.5 S Streptococcus agalactiae (B): REACTION Ampicillin Islt RADHA <=0.25 S cefTRIAXone Islt RADHA <=0.12 Clindamycin.induced Susc Islt NEG Linezolid Islt RADHA <=2 S Vancomycin Islt RADHA 0.5 S Normal [facility] Comment on above: Performed By: #### M 100.1502 ####[facility] [id number] [place], [address] Urgent Care Visit Reporton 0 03-07-2025 Urgent Care Visit Report [facility] [address], [address] [place] [address] OFFICE VISIT Date of Service: 03/07/25 MR#: [id number] Acct: [id number] Name: MARIIA DAVIDSON Rep #: [id number] : 1980 Provider: KATHRYN Capps Age/Sex: 44/F Location: [facility] Status: Signed Intake Vital Signs 02/13/25 07:25 03/07/25 07:53 Height 5 ft 9 in Weight: 160 lb BMI 23.6 BP 114/78 118/60 Blood Pressure Location Lt brachial Position Sitting Sitting Respiration 16 18 Pulse 83 81 Pulse Source Monitor Temp 98.0 F Temp Source Oral Pulse Oximetry (%) 96 Oxygen Delivery Method room air Intake Visit Reasons: CONCERN FOR BLADDER INFECTION Chief Complaint: UTI Accompanied by: Self Allergies No Known Allergies Allergy (Verified 03/07/25 08:01) Medications ???Medication ???Instructions ???Recorded ???Confirmed ???Type potassium chloride 20 mEq 20 meq PO BID supplement 12/13/21 03/07/25 History tablet,extended release levothyroxine 25 mcg tablet 50 mcg PO DAILY thyroid 07/06/22 0 03/07/25 History colestipol 1 gram tablet 2 g (2 x 1 gram) PO BID . #60 tabs 12/22/22 03/07/25 Rx ondansetron 4 mg disintegrating 4 mg PO Q8H PRN PRN Nausea #10 tab s 05/14/23 03/07/25 Rx tablet snzhwqjw-wplgclhn-mfp n 45 mg-folic cap PO 07/11/24 03/07/25 History acid 800 mcg-vit K 120 mcg capsule (Bariatric Multivitamins) gabapentin 300 mg capsule 300 mg PO BID 30 days #60 caps 03/07/25 Rx lurasidone 120 mg tablet See Rx Instructions .Route 03/07/25 Rx .COMPLEX #30 tabs amlodipine 2.5 mg tablet 1.25 - 2.5 mg PO QPM 01/23/2502/12 History divalproex 500 mg tablet,delayed See Rx Instructions PO .COMPLEX 30 01/24/25 03/07/25 Rx release (Depakote) days #120 tabs clonazepam 1 mg tablet 1 mg PO BID PRN anxiety #60 tabs 0 02/01/25 03/07/25 Rx lamotrigine 150 mg tablet 150 mg PO QDAY 30 days #30 tabs 03/07/25 Rx sertraline 100 mg tablet 200 mg (2 x 100 mg) PO QHS #60 02/0403/07/25 Rx TABLETS trazodone 50 mg tablet 50 - 100 mg (1 - 2 x 50 mg) PO QHS 02/18/25 03/07/25 Rx PRN sleep #30 tabs methylprednisolone 4 mg tablets in 4 mg PO PER PKG DIR 6 days #21 t abs 03/07/25 03/07/25 Rx a dose pack (Medrol (Avery)) Nurse's Note: Patient here for a UTI concern. Patient has been having burning, incontinence and the urgency but then can't go when she tries. Patient did take a OTC Azo. Patient states this morning she wiped some blood. [facility] Medical History (Updated 03/07/25 @ 08:06 by Neymar PERALTA, KATHRYN) Leg cramps PONV (postoperative nausea and vomiting) CRVO (central retinal vein occlusion) Right ureteral calculus Anxiety Bipolar 2 disorder Thyroid disease ( 10/12/24) Diabetes Anemia Fatty liver Migraine headache Chronic diarrhea Non-smoker Decreased circulation Insomnia Bipolar 1 disorder Diarrhea Alcoholic hepatitis Breast lump Alcohol abuse Hypertension Surgical History H/O breast implant H/O gastric sleeve Hx of cystoscopy Hx laparoscopic cholecystectomy Hx of colonoscopy Hx of tonsillectomy delivery delivered Family History Father Heart disease Mother Cancer lung- smoker Social History household members: spouse housing: house current occupational status: employed current occupation: [employer] Smoking Status: Never smoker alcohol intake: former details: social substance use type: does not use caffeine: Yes what type of physical activity do you participate in: none seatbelt use: always do you feel safe at home: Yes additional social history: - Jed HPI HPI Chief Complaint: UTI Details: MARIIA DAVIDSON, is a 44 F who presents to the office today for complaint of dysuria and hematuria for the past 4 days. Patient denies fever, chills or sweats. No nausea, vomiting or diarrhea. No pelvic or abdominal pain. No other associated symptoms or alleviating/aggravati ng factors. ROS Const Constitutional: No other (6 system ROS completed with pertinent findings in the HPI otherwise normal.) Exam Const General: cooperative and healthy appearing Resp Effort Inspection: normal respiratory effort Auscultation: Bilateral: Clear to Auscultation Cardio Rate: regular rate GI Auscultation: normal bowel sounds General: No CVA tenderness Psych Appearance: grossly normal Mental Status: mental status grossly normal Results POC Urine Office , Urine Negative Last Edit by Anny Frias MA on 03/07/25 08:04 POC Urinalysis Dip (Clinic) Office Urine Color YELLOW Last Edit by Anny (more content not included)... Normal [facility] 02-22-2025 [facility] Telephone (AGGENS4) MARIIA DAVIDSON ([id number]) 1980 F Date Time Provider Department 02/22/25 CLAUDIA GUILLAUME AGGENS4 During your visit today, we recorded the following information about you: Michela Burgos 02/22/2025 3:20 PM Signed LVM AND MCM to r/s 03/22/2025 with Claudia. Allergies As of Date: 02/22/2025 (No Known Allergies) Date Reviewed: 09/19/2024 Reviewed by: Abigail Mcdermott MD - Fully Assessed Reason for Visit: Appointment [186] Cmt: LVM AND MCM to r/s 03/22/2025 with Claudia. Prescriptions as of 02/22/2025 - tirzepatide, weight loss (ZEPBOUND) 2.5 mg/0.5 mL solution Inject 0.5 mL subcutaneously one time a week. - pantoprazole DR (PROTONIX) 40 mg tablet Take 1 tablet by mouth once daily. TO START AFTER SURGERY. Take every day for 6 months after surgery. - lamoTRIgine (LAMICTAL) 25 mg tablet Take 50 mg by mouth once daily. - bevacizumab 0.625 mg in syringe 0.025 mL (AVASTIN) Use 0.625 mg in the right eye one time only. - ondansetron (ZOFRAN) 4 mg tablet Take 1 tablet by mouth every 8 hours as needed for nausea/vomiting (for nausea.). - biotin 1 mg cap Take by mouth once daily. - vitamin b complex capsule Take 1 capsule by mouth once daily. - gabapentin (NEURONTIN) 300 mg capsule Take 300 mg by mouth two times a day. - colestipol (COLESTID) 1 gram tablet Take 2 g by mouth daily at bedtime. - clonazePAM (KLONOPIN) 1 mg tablet Take 1 mg by mouth two times a day as needed for anxiety. - amLODIPine (NORVASC) 5 mg tablet Take 2.5 mg by mouth once daily. - lurasidone (LATUDA) 120 mg tablet Take by mouth once daily. - POTASSIUM CITRATE ORAL Take 15 mEq by mouth once daily. - sertraline (ZOLOFT) 100 mg tablet Take 200 mg by mouth once daily. - levothyroxine 50 mcg cap Take 25 mcg by mouth daily before breakfast. Problem List As Of Date 02/22/2025 Noted Resolved Bipolar disorder (HCC) [F31.9] 03/31/2015 Ultrasound scan to check weight, previous*03/31/2015 05/28/2016 Previous section [Z98.891] 03/31/2015 05/28/2016 Secondary anovulatory infertility [N97.0] 05/28/2016 Secondary oligomenorrhea [N91.4] 05/28/2016 Class 2 obesity with body mass index (BMI) of 3*10/30/2021 Hypothyroidism [E03.9] 12/06/2023 HTN (hypertension) [I10] 12/06/2023 Nephrolithiasis [N20.0] 12/06/2023 Non-alcoholic fatty liver disease [K76.0] 12/06/2023 Pre-diabetes [R73.03] 12/06/2023 Central vein occlusion of retina [H34.8192] 12/06/2023 Body mass index 37.0-37.9, adult [Z68.37] 03/12/2024 HLD (hyperlipidemia) [E78.5] 03/12/2024 Medical marijuana use [Z79.899] 03/12/2024 Pre-op examination [Z01.818] 03/12/2024 Hypokalemia due to excessive gastrointestinal l*03/13/2024 Obesity, Class II, BMI 35-39.9 [E66.812] 03/19/2024 Encounter Status:Closed by MICHELA BURGOS on 02/22/25 Normal [facility] Vitamin A, Retinolon 025 VIT A, RETINOL 76.2 ug/dL High 20.1-62.0 [facility] Comment on above: Order Comment: Order Date: 02/13/25 Order Info: [id number] - ALEKSANDRA Order Info: [id number] - CORTU Result Comment: Refe rence intervals for vitamin A determined from [facility] internal studies. Individuals with vitamin A less than 20 ug/dL are considered vitamin A deficient and those with serum concentrations less than 10 ug/dL are considered severely deficient. This test was developed and its performance characteristics determined by [facility]. It has not been cleared or approved by the Food and Drug Administration. Performed at: [address] [id number] Oil Scout: Lorena Montgomery MD, Phone: [phone] Performed By: #### L 100.0100, L3400.0920, L500.4050, L592.9985 #### [facility] [address] [place], [place], [id number] CBC W/Diff, Automatedon 09 Absolute Lymph 1.97 X10 3/uL Normal 0.83-4.51 [facility] Comment on above: Order Comment: Order Date: 02/13/25 Order Info: [id number] - CBCD Performed By: #### L 100.0100, L3400.0920, L500.4050, L546.9985 #### [facility] [address] [place], [address] Absolute Neut 2.1 X10 3/uL Normal 2.0-7.7 [facility] Comment on above: Order Comment: Order Date: 02/13/25 Order Info: 0184-1 - CBCD Performed By: #### L 100.0100, L3400.0920, L500.4050, L501.9985 #### [facility] [address] [place], [address] Basophils/100 WBC (Bld) 0.7 % Normal 0-1 [facility] Comment on above: Order Comment: Order Date: 02/13/25 Order Info: 0184-1 - CBCD Performed By: #### L 100.0100, L3400.0920, L500.4050, L501.9985 #### [facility] [address] [place], [address] Eosinophils/100 WBC (Bld) 2.2 % Normal 0-5 [facility] Comment on above: Order Comment: Order Date: 02/13/25 Order Info: 0184-1 - CBCD Performed By: #### L 100.0100, L3400.0920, L500.4050, L501.9985 #### [facility] [address] [place], [address] Erythrocyte distribution width (RBC) [Ratio] 12.3 % Normal 11.6-14.6 [facility] Comment on above: Order Comment: Order Date: 02/13/25 Order Info: 0184-1 - CBCD Performed By: #### L 100.0100, L3400.0920, L500.4050, L501.9985 #### [facility] [address] [place], [address] Hematocrit (Bld) [Volume fraction] 42.6 % Normal 37-47 [facility] Comment on above: Order Comment: Order Date: 02/13/25 Order Info: 0184-1 - CBCD Performed By: #### L 100.0100, L3400.0920, L500.4050, L501.9985 #### [facility] [address] [place], [address] Hemoglobin (Bld) [Mass/Vol] 14.6 g/dL Normal 12.0-15.0 [facility] Comment on above: Order Comment: Order Date: 02/13/25 Order Info: 0184-1 - CBCD Performed By: #### L 100.0100, L3400.0920, L500.4050, L501.9985 #### [facility] [address] [place], [address] IG% 0.200 Normal 0.0-0.9 [facility] Comment on above: Order Comment: Order Date: 02/13/25 Order Info: [id number]- - CBCD Result Comment: IG% - Immature Granulocytes (promyelocytes, myelocytes and metamyelocytes) > 1% indicates that a LEFT SHIFT is Present. Performed By: #### L 100.0100, L3400.0920, L500.4050, L501.9985 #### [facility] [address] [place], [address] Lymphocytes/100 WBC (Bld) 43.3 % High 19-41 [facility] Comment on above: Order Comment: Order Date: 02/13/25 Order Info: 0184-1 - CBCD Performed By: #### L 100.0100, L3400.0920, L500.4050, L501.9985 #### [facility] [address] [place], [address] MCH (RBC) [Entitic mass] 30.1 pg Normal 27.0-32.0 [facility] Comment on above: Order Comment: Order Date: 02/13/25 Order Info: 0184-1 - CBCD Performed By: #### L 100.0100, L3400.0920, L500.4050, L501.9985 #### [facility] [address] [place], [address] MCHC (RBC) [Mass/Vol] 34.3 g/dL Normal 32-36 [facility] Comment on above: Order Comment: Order Date: 02/13/25 Order Info: 0184-1 - CBCD Performed By: #### L 100.0100, L3400.0920, L500.4050, L501.9985 #### [facility] [address] [place], [address] MCV (RBC) [Entitic vol] 87.8 fL Normal 81-99 [facility] Comment on above: Order Comment: Order Date: 02/13/25 Order Info: 0184-1 - CBCD Performed By: #### L 100.0100, L3400.0920, L500.4050, L501.9985 #### [facility] [address] [place], [address] Monocytes/100 WBC (Bld) 7.5 % Normal 0-10 [facility] Comment on above: Order Comment: Order Date: 02/13/25 Order Info: 0184-1 - CBCD Performed By: #### L 100.0100, L3400.0920, L500.4050, L501.9985 #### [facility] [address] [place], [address] Neutrophils/100 WBC (Bld) 46.1 % Low 47-70 [facility] Comment on above: Order Comment: Order Date: 02/13/25 Order Info: 0184-1 - CBCD Performed By: #### L 100.0100, L3400.0920, L500.4050, L501.9985 #### [facility] [address] [place], [address] Nucleated RBC (Bld) [#/Vol] 0 10*3/uL Normal 0-5 [facility] Comment on above: Order Comment: Order Date: 02/13/25 Order Info: 0184-1 - CBCD Performed By: #### L 100.0100, L3400.0920, L500.4050, L501.9985 #### [facility] [address] [place], [address] Platelet mean volume (Bld) [Entitic vol] 10.2 fL Normal 6.2-12.0 [facility] Comment on above: Order Comment: Order Date: 02/13/25 Order Info: 0184-1 - CBCD Performed By: #### L 100.0100, L3400.0920, L500.4050, L501.9985 #### [facility] [address] [place], [address] Platelets (Bld) [#/Vol] 103 10*3/uL Low 150-450 [facility] Comment on above: Order Comment: Order Date: 02/13/25 Order Info: 0184-1 - CBCD Performed By: #### L 100.0100, L3400.0920, L500.4050, L501.9985 #### [facility] [address] [place], [address] RBC (Bld) [#/Vol] 4.85 10*6/uL Normal 4.2-5.4 [facility] Comment on above: Order Comment: Order Date: 02/13/25 Order Info: 0184- - CBCD Performed By: #### L 100.0100, L3400.0920, L500.4050, L501.9985 #### [facility] [address] [place], [address] RDW SD 40.0 fl Normal 35.1-43.9 [facility] Comment on above: Order Comment: Order Date: 02/13/25 Order Info: 0184-1 - CBCD Performed By: #### L 100.0100, L3400.0920, L500.4050, L501.9985 #### [facility] [address] [place], [address] WBC (Bld) [#/Vol] 4.6 10*3/uL Normal 4.4-11.0 [facility] Comment on above: Order Comment: Order Date: 02/13/25 Order Info: 0184-1 - CBCD Performed By: #### L 100.0100, L3400.0920, L500.4050, L501.9985 #### [facility] [address] [place], [address] Comprehensive Metabolic Prof ilon 02-13-2025 Albumin [Mass/Vol] 5.0 g/dL Normal 3.5-5.0 [facility] Comment on above: Order Comment: Order Date: 02/13/25 Order Info: 0786-1 - CMP Performed By: #### L 100.0100, L3400.0920, L500.4050, L501.9985 #### [facility] [address] [place], [address] Albumin/Globulin [Mass ratio] 2.1 {ratio} Normal 0.9-2.4 [facility] Comment on above: Order Comment: Order Date: 02/13/25 Order Info: 0786-1 - CMP Performed By: #### L 100.0100, L3400.0920, L500.4050, L501.9985 #### [facility] [address] [place], [address] ALK PHOS 53 U/L Normal 35-104 [facility] Comment on above: Order Comment: Order Date: 02/13/25 Order Info: 0786-1 - CMP Performed By: #### L 100.0100, L3400.0920, L500.4050, L501.9985 #### [facility] [address] [place], [address] ALT [Catalytic activity/Vol] 15 U/L Normal <=34 [facility] Comment on above: Order Comment: Order Date: 02/13/25 Order Info: 0786-1 - CMP Performed By: #### L 100.0100, L3400.0920, L500.4050, L501.9985 #### [facility] [address] [place], [address] AST [Catalytic activity/Vol] 19 U/L Normal <=31 [facility] Comment on above: Order Comment: Order Date: 02/13/25 Order Info: 0786-1 - CMP Performed By: #### L 100.0100, L3400.0920, L500.4050, L501.9985 #### [facility] [address] [place], [address] Bilirubin [Mass/Vol] 0.35 mg/dL Normal 0.00-1.30 [facility] Comment on above: Order Comment: Order Date: 02/13/25 Order Info: 0786-1 - CMP Performed By: #### L 100.0100, L3400.0920, L500.4050, L501.9985 #### [facility] [address] [place], [address] BUN/CRE 16.9 RATIO Normal 10-20 [facility] Comment on above: Order Comment: Order Date: 02/13/25 Order Info: 0786-1 - CMP Performed By: #### L 100.0100, L3400.0920, L500.4050, L501.9985 #### [facility] [address] [place], [address] Calcium [Mass/Vol] 10.0 mg/dL Normal 7.6-11.0 [facility] Comment on above: Order Comment: Order Date: 02/13/25 Order Info: 0786-1 - CMP Performed By: #### L 100.0100, L3400.0920, L500.4050, L501.9985 #### [facility] [address] [place], [address] Chloride [Moles/Vol] 100 mmol/L Normal 98-108 [facility] Comment on above: Order Comment: Order Date: 02/13/25 Order Info: 0786-1 - CMP Performed By: #### L 100.0100, L3400.0920, L500.4050, L501.9985 #### [facility] [address] [place], [address] CO2 [Moles/Vol] 25.2 mmol/L Normal 21.0-32.0 [facility] Comment on above: Order Comment: Order Date: 02/13/25 Order Info: 0786-1 - CMP Performed By: #### L 100.0100, L3400.0920, L500.4050, L501.9985 #### [facility] [address] [place], [address] Creatinine [Mass/Vol] 1.13 mg/dL Normal 0.70-1.20 [facility] Comment on above: Order Comment: Order Date: 02/13/25 Order Info: 0786-1 - CMP Performed By: #### L 100.0100, L3400.0920, L500.4050, L501.9985 #### [facility] [address] [place], [address] GAP 13 Normal 5-15 [facility] Comment on above: Order Comment: Order Date: 02/13/25 Order Info: 0786-1 - CMP Performed By: #### L 100.0100, L3400.0920, L500.4050, L501.9985 #### [facility] [address] [place], [address] GFR/1.73 sq M.predicted among non-blacks MDRD (S/P/Bld) [Vol rate/Area] 62 mL/min/{1.73_m2} Normal >60 [facility] Comment on above: Order Comment: Order Date: 02/13/25 Order Info: 0786-1 - CMP Result Comment: mL/m in/1.73m2 CKD-EPI Creatinine Equation (2020) Performed By: #### L 100.0100, L3400.0920, L500.4050, L501.9985 #### [facility] [address] [place], [address] Globulin (S) [Mass/Vol] 2.4 g/dL Normal 2.2-4.2 [facility] Comment on above: Order Comment: Order Date: 02/13/25 Order Info: 0786-1 - CMP Performed By: #### L 100.0100, L3400.0920, L500.4050, L501.9985 #### [facility] [address] [place], [address] Glucose [Mass/Vol] 70 mg/dL Normal 70-99 [facility] Comment on above: Order Comment: Order Date: 02/13/25 Order Info: 0786-1 - CMP Performed By: #### L 100.0100, L3400.0920, L500.4050, L501.9985 #### [facility] [address] [place], [address] Potassium [Moles/Vol] 4.5 mmol/L Normal 3.3-5.1 [facility] Comment on above: Order Comment: Order Date: 02/13/25 Order Info: 0786-1 - CMP Performed By: #### L 100.0100, L3400.0920, L500.4050, L501.9985 #### [facility] [address] [place], [address] Sodium [Moles/Vol] 139 mmol/L Normal 133-145 [facility] Comment on above: Order Comment: Order Date: 02/13/25 Order Info: 0786-1 - CMP Performed By: #### L 100.0100, L3400.0920, L500.4050, L501.9985 #### [facility] [address] [place], [address] T PROT 7.4 g/dL Normal 5.9-8.4 [facility] Comment on above: Order Comment: Order Date: 02/13/25 Order Info: 0786-1 - CMP Performed By: #### L 100.0100, L3400.0920, L500.4050, L501.9985 #### [facility] [address] [place], [address] Urea nitrogen [Mass/Vol] 19 mg/dL Normal 4-19 [facility] Comment on above: Order Comment: Order Date: 02/13/25 Order Info: 0786-1 - CMP Performed By: #### L 100.0100, L3400.0920, L500.4050, L501.9985 #### [facility] [address] [place], [address] Hemoglobin A1con 02-13-2025 HbA1c (Bld) [Mass fraction] 4.6 % Normal <=5.6 [facility] Comment on above: Order Comment: Order Date: 02/13/25 Order Info: 4548-4 - A1C Result Comment: Norm al < 5.7 % Prediabetic 5.7 - 6.4 % Diabetic >or= 6.5 % Please note range changes. Performed By: #### L 100.0100, L3400.0920, L500.4050, L501.9985 #### [facility] [address] [place], [address] L509.6002on 02-13-2025 CORTISOL 10.20 ug/dL Normal 2.68-10.50 [facility] Comment on above: Order Comment: Order Date: 02/13/25Order Info: 0786-1 - CMP Performed By: #### L 509.6002, L506.1001 ####[facility] [address] [place], [address] MR/BPon 02-13-2025 MR/CLAUDIA.BP [address], [address] [place] [address] OFFICE VISIT Date of Service: 02/13/25 MR#: [id number] Acct: [id number] Name: MARIIA DAVIDSON Rep #: [id number] : 1980 Provider: Dr. Kurtis Higuera se, DO Age/Sex: 44/F Location: [facility].BP Status: Signed Intake Vital Signs 01/23/25 06:46 02/13/25 07:25 Height 5 ft 9 in 5 ft 9 in Weight: 164 lb 160 lb BMI 24.2 23.6 BP 153/98 H 114/78 Blood Pressure Location Lt brachial Lt brachial Position Sitting Sitting Respiration 16 16 Pulse 82 83 Pulse Source Monitor Monitor BP Intake Visit Reasons: 2-3 wfu Accompanied by: Self Allergies No Known Allergies Allergy (Verified 02/13/25 07:28) Medications ???Medication ???Instructions ???Recorded ???Confirmed ???Type potassium chloride 20 mEq 20 meq PO BID supplement 12/13/21 02/13/25 History tablet,extended release levothyroxine 25 mcg tablet 50 mcg PO DAILY thyroid 07/06/22 0 02/13/25 History colestipol 1 gram tablet 2 g (2 x 1 gram) PO BID . #60 tabs 12/22/22 02/13/25 Rx ondansetron 4 mg disintegrating 4 mg PO Q8H PRN PRN Nausea #10 tab s 05/14/23 02/13/25 Rx tablet dwmgtupp-pqvhhzqu-shc n 45 mg-folic cap PO 07/11/24 02/13/25 History acid 800 mcg-vit K 120 mcg capsule (Bariatric Multivitamins) gabapentin 300 mg capsule 300 mg PO BID 30 days #60 caps 02/13/25 Rx lamotrigine 150 mg tablet 150 mg PO QDAY 30 days #30 tabs 02/13/25 Rx lurasidone 120 mg tablet See Rx Instructions .Route 5 02/13/25 Rx .COMPLEX #30 tabs amlodipine 2.5 mg tablet 1.25 - 2.5 mg PO QPM 01/23/25/09/04 History trazodone 50 mg tablet 50 - 100 mg (1 - 2 x 50 mg) PO QHS 01/23/25 02/13/25 Rx PRN sleep #30 tabs divalproex 500 mg tablet,delayed See Rx Instructions PO .COMPLEX 30 01/24/25 02/13/25 Rx release (Depakote) days #120 tabs sertraline 100 mg tablet 200 mg (2 x 100 mg) PO QHS #60 02/13/25 Rx TABLETS clonazepam 1 mg tablet 1 mg PO BID PRN anxiety #60 tabs 0 02/01/25 02/13/25 Rx PFSH Medical History (Updated 11/01/24 @ 10:40 by Neymar PERALTA, PA) Leg cramps PONV (postoperative nausea and vomiting) CRVO (central retinal vein occlusion) Right ureteral calculus Anxiety Bipolar 2 disorder Thyroid disease ( 10/12/24) Diabetes Anemia Fatty liver Migraine headache Chronic diarrhea Non-smoker Decreased circulation Insomnia Bipolar 1 disorder Diarrhea Alcoholic hepatitis Breast lump Alcohol abuse Hypertension Surgical History H/O breast implant H/O gastric sleeve Hx of cystoscopy Hx laparoscopic cholecystectomy Hx of colonoscopy Hx of tonsillectomy delivery delivered Family History Father Heart disease Mother Cancer lung- smoker Social History household members: spouse housing: house current occupational status: employed current occupation: [employer] Smoking Status: Never smoker alcohol intake: former details: social substance use type: does not use caffeine: Yes what type of physical activity do you participate in: none seatbelt use: always do you feel safe at home: Yes additional social history: - Jed HPI History of Present Illness History provided by: patient HPI: Mariia Davidson is a 44 year old female who presents today for follow up evaluation. Patient reports that she has been feeling better in recent past. Does feel like she has been yawning more in recent past. Has continued to take 1500 mg depakote daily. Has continued to be much more irritable, especially with her significant other. Does tries to avoid driving during the day because she gets so frustrated. However does feel more calm than she had previously. [place] that she had been gaining weigh so restarted tirzepatide and even started taking stimulant laxatives. Has used for the past few weeks. Advised against this. Comments that she feels less crazy. Has not been following with [facility] for counseling as she had been. Denies any significant depression at this time. Will be going on a fishing trip this weekend with and kids on [place]. Planning on cruise in the spring. Has been sleeping well. Review of Systems Constitutional Reports: change in weight (recent loss); Denies: fever(s) or chills Eyes Denies: change in vision or blurry vision Ears, Nose, Mouth, Throat Denies: throat pain, neck pain or change in hearing Cardiovascular Denies: chest pain, palpitations or dyspnea Respiratory Denies: dyspnea, cough or wheezing Gastrointestinal Denies: abdominal pain, nausea, vomiting, diarrhea or constipation Genitourinary Denies: dysuria or urinary frequ (more content not included)... Normal [facility] Vitamin D,25 Hydroxyon 02-13 Vitamin D 25-OH 96.3 ng/mL Normal 30-100 [facility] Comment on above: Order Comment: Order Date: 02/13/25Order Info: 0786-1 - CMP Result Comment: Aleksandra min D Status Deficiency: <20 ng/mL (50nmol/L) Insufficiency: 20-30 ng/mL (50-75 nmol/L) Sufficiency: 30-100 ng/mL (75-250 nmol/L) Toxicity: >100 ng/mL (>250 nmol/L) Performed By: #### L 509.6002, L506.1001 ####[facility] [address] [place], [address] CBC W/Diff, Automatedon 01-11 Absolute Lymph 1.64 X10 3/uL Normal 0.83-4.51 [facility] Comment on above: Performed By: #### L 500.4050, L501.8100, L100.0100 ####[facility] [address] [place], [address] Absolute Neut 2.5 X10 3/uL Normal 2.0-7.7 [facility] Comment on above: Performed By: #### L 500.4050, L501.8100, L100.0100 ####[facility] [address] [place], [address] Basophils/100 WBC (Bld) 0.4 % Normal 0-1 [facility] Comment on above: Performed By: #### L 500.4050, L501.8100, L100.0100 ####[facility] [address] [place], [address] Eosinophils/100 WBC (Bld) 1.6 % Normal 0-5 [facility] Comment on above: Performed By: #### L 500.4050, L501.8100, L100.0100 ####[facility] [address] [place], [address] Erythrocyte distribution width (RBC) [Ratio] 12.2 % Normal 11.6-14.6 [facility] Comment on above: Performed By: #### L 500.4050, L501.8100, L100.0100 ####[facility] [address] [place], [address] Hematocrit (Bld) [Volume fraction] 39.8 % Normal 37-47 [facility] Comment on above: Performed By: #### L 500.4050, L501.8100, L100.0100 ####[facility] [address] [place], [address] Hemoglobin (Bld) [Mass/Vol] 13.2 g/dL Normal 12.0-15.0 [facility] Comment on above: Performed By: #### L 500.4050, L501.8100, L100.0100 ####[facility] [address] [place], [address] IG% 0.000 Normal 0.0-0.9 [facility] Comment on above: Result Comment: IG% - Immature Granulocytes (promyelocytes, myelocytes and metamyelocytes) > 1% indicates that a LEFT SHIFT is Present. Performed By: #### L 500.4050, L501.8100, L100.0100 ####[facility] [address] [place], [address] Lymphocytes/100 WBC (Bld) 36.7 % Normal 19-41 [facility] Comment on above: Performed By: #### L 500.4050, L501.8100, L100.0100 ####[facility] [address] [place], [address] MCH (RBC) [Entitic mass] 29.9 pg Normal 27.0-32.0 [facility] Comment on above: Performed By: #### L 500.4050, L501.8100, L100.0100 ####[facility] [address] [place], [address] MCHC (RBC) [Mass/Vol] 33.2 g/dL Normal 32-36 [facility] Comment on above: Performed By: #### L 500.4050, L501.8100, L100.0100 ####[facility] [address] [place], [address] MCV (RBC) [Entitic vol] 90.0 fL Normal 81-99 [facility] Comment on above: Performed By: #### L 500.4050, L501.8100, L100.0100 ####[facility] [address] [place], [address] Monocytes/100 WBC (Bld) 6.5 % Normal 0-10 [facility] Comment on above: Performed By: #### L 500.4050, L501.8100, L100.0100 ####[facility] [address] [place], [address] Neutrophils/100 WBC (Bld) 54.8 % Normal 47-70 [facility] Comment on above: Performed By: #### L 500.4050, L501.8100, L100.0100 ####[facility] [address] [place], [address] Nucleated RBC (Bld) [#/Vol] 0 10*3/uL Normal 0-5 [facility] Comment on above: Performed By: #### L 500.4050, L501.8100, L100.0100 ####[facility] [address] [place], [address] Platelet mean volume (Bld) [Entitic vol] 9.6 fL Normal 6.2-12.0 [facility] Comment on above: Performed By: #### L 500.4050, L501.8100, L100.0100 ####[facility] [address] [place], [address] Platelets (Bld) [#/Vol] 147 10*3/uL Low 150-450 [facility] Comment on above: Performed By: #### L 500.4050, L501.8100, L100.0100 ####[facility] [address] [place], [address] RBC (Bld) [#/Vol] 4.42 10*6/uL Normal 4.2-5.4 [facility] Comment on above: Performed By: #### L 500.4050, L501.8100, L100.0100 ####[facility] [address] [place], [address] RDW SD 40.4 fl Normal 35.1-43.9 [facility] Comment on above: Performed By: #### L 500.4050, L501.8100, L100.0100 ####[facility] [address] [place], [address] WBC (Bld) [#/Vol] 4.5 10*3/uL Normal 4.4-11.0 [facility] Comment on above: Performed By: #### L 500.4050, L501.8100, L100.0100 ####[facility] [address] [place], [address] Comprehensive Metabolic Prof jordan 01-23-2025 Albumin [Mass/Vol] 4.7 g/dL Normal 3.5-5.0 [facility] Comment on above: Performed By: #### L 500.4050, L501.8100, L100.0100 ####[facility] [address] [place], [address] Albumin/Globulin [Mass ratio] 2.0 {ratio} Normal 0.9-2.4 [facility] Comment on above: Performed By: #### L 500.4050, L501.8100, L100.0100 ####[facility] [address] [place], [address] ALK PHOS 55 U/L Normal 35-104 [facility] Comment on above: Performed By: #### L 500.4050, L501.8100, L100.0100 ####[facility] [address] [place], [address] ALT [Catalytic activity/Vol] 14 U/L Normal <=34 [facility] Comment on above: Performed By: #### L 500.4050, L501.8100, L100.0100 ####[facility] [address] [place], [address] AST [Catalytic activity/Vol] 18 U/L Normal <=31 [facility] Comment on above: Performed By: #### L 500.4050, L501.8100, L100.0100 ####[facility] [address] [place], [address] Bilirubin [Mass/Vol] 0.34 mg/dL Normal 0.00-1.30 [facility] Comment on above: Performed By: #### L 500.4050, L501.8100, L100.0100 ####[facility] [address] [place], [address] BUN/CRE 20.4 RATIO High 10-20 [facility] Comment on above: Performed By: #### L 500.4050, L501.8100, L100.0100 ####[facility] [address] [place], [address] Calcium [Mass/Vol] 9.6 mg/dL Normal 7.6-11.0 [facility] Comment on above: Performed By: #### L 500.4050, L501.8100, L100.0100 ####[facility] [address] [place], [address] Chloride [Moles/Vol] 101 mmol/L Normal 98-108 [facility] Comment on above: Performed By: #### L 500.4050, L501.8100, L100.0100 ####[facility] [address] [place], [address] CO2 [Moles/Vol] 25.8 mmol/L Normal 21.0-32.0 [facility] Comment on above: Performed By: #### L 500.4050, L501.8100, L100.0100 ####[facility] [address] [place], [address] Creatinine [Mass/Vol] 0.98 mg/dL Normal 0.70-1.20 [facility] Comment on above: Performed By: #### L 500.4050, L501.8100, L100.0100 ####[facility] [address] [place], [address] GAP 12 Normal 5-15 [facility] Comment on above: Performed By: #### L 500.4050, L501.8100, L100.0100 ####[facility] [address] [place], [address] GFR/1.73 sq M.predicted among non-blacks MDRD (S/P/Bld) [Vol rate/Area] 73 mL/min/{1.73_m2} Normal >60 [facility] Comment on above: Result Comment: mL/m in/1.73m2 CKD-EPI Creatinine Equation (2020) Performed By: #### L 500.4050, L501.8100, L100.0100 ####[facility] [address] [place], [address] Globulin (S) [Mass/Vol] 2.3 g/dL Normal 2.2-4.2 [facility] Comment on above: Performed By: #### L 500.4050, L501.8100, L100.0100 ####[facility] [address] [place], [address] Glucose [Mass/Vol] 82 mg/dL Normal 70-99 [facility] Comment on above: Performed By: #### L 500.4050, L501.8100, L100.0100 ####[facility] [address] [place], [address] Potassium [Moles/Vol] 4.1 mmol/L Normal 3.3-5.1 [facility] Comment on above: Performed By: #### L 500.4050, L501.8100, L100.0100 ####[facility] [address] [place], [address] Sodium [Moles/Vol] 139 mmol/L Normal 133-145 [facility] Comment on above: Performed By: #### L 500.4050, L501.8100, L100.0100 ####[facility] [address] [place], [address] T PROT 6.9 g/dL Normal 5.9-8.4 [facility] Comment on above: Performed By: #### L 500.4050, L501.8100, L100.0100 ####[facility] [address] [place], [address] Urea nitrogen [Mass/Vol] 20 mg/dL High 4-19 [facility] Comment on above: Performed By: #### L 500.4050, L501.8100, L100.0100 ####[facility] [address], [address] MR/BMS.BPon 01-23-2025 MR/BMS.BP [facility] [address], [address] [place] [address] OFFICE VISIT Date of Service: 01/23/25 MR#: [id number] Acct: [id number] Name: MARIIA DAVIDSON Rep #: [id number] : 1980 Provider: Dr. Kurtis Higuera se, DO Age/Sex: 44/F Location: [facility].BP Status: Signed Intake Vital Signs 01/02/25 13:02 01/23/25 06:46 Height 5 ft 9 in 5 ft 9 in Weight: 164 lb BMI 24.2 BP 153/98 H Blood Pressure Location Lt brachial Position Sitting Respiration 16 Pulse 82 Pulse Source Monitor BP Intake Visit Reasons: Follow up Accompanied by: Self Allergies No Known Allergies Allergy (Verified 01/23/25 06:58) Medications ???Medication ???Instructions ???Recorded ???Confirmed ???Type potassium chloride 20 mEq 20 meq PO BID supplement 12/13/21 01/23/25 History tablet,extended release levothyroxine 25 mcg tablet 50 mcg PO DAILY thyroid 07/06/22 0 01/23/25 History colestipol 1 gram tablet 2 g (2 x 1 gram) PO BID . #60 tabs 12/22/22 10/12/24 Rx ondansetron 4 mg disintegrating 4 mg PO Q8H PRN PRN Nausea #10 tab s 05/14/23 01/23/25 Rx tablet wzhnblfl-jhtpgxcr-sbo n 45 mg-folic cap PO 07/11/24 01/23/25 History acid 800 mcg-vit K 120 mcg capsule (Bariatric Multivitamins) clonazepam 1 mg tablet 1 mg PO BID PRN anxiety #60 tabs 0 7/24/25 08/13/25 Rx gabapentin 300 mg capsule 300 mg PO BID 30 days #60 caps 01/23/25 Rx divalproex 500 mg tablet,delayed 1,500 mg (3 x 500 mg) PO QHS 30 01/23/25 Rx release (Depakote) days #90 tabs lamotrigine 150 mg tablet 150 mg PO QDAY 30 days #30 tabs 01/23/25 Rx lurasidone 120 mg tablet See Rx Instructions .Route 5 01/23/25 Rx .COMPLEX #30 tabs sertraline 100 mg tablet 200 mg (2 x 100 mg) PO QHS #60 01/23/25 Rx TABLETS amlodipine 2.5 mg tablet 1.25 - 2.5 mg PO QPM 01/23/2501/11 History trazodone 50 mg tablet 50 - 100 mg (1 - 2 x 50 mg) PO QHS 01/23/25 01/23/25 Rx PRN sleep #30 tabs PFSH Medical History (Updated 11/01/24 @ 10:40 by Neymar PERALTA, PA) Leg cramps PONV (postoperative nausea and vomiting) CRVO (central retinal vein occlusion) Right ureteral calculus Anxiety Bipolar 2 disorder Thyroid disease ( 10/12/24) Diabetes Anemia Fatty liver Migraine headache Chronic diarrhea Non-smoker Decreased circulation Insomnia Bipolar 1 disorder Diarrhea Alcoholic hepatitis Breast lump Alcohol abuse Hypertension Surgical History H/O breast implant H/O gastric sleeve Hx of cystoscopy Hx laparoscopic cholecystectomy Hx of colonoscopy Hx of tonsillectomy delivery delivered Family History Father Heart disease Mother Cancer lung- smoker Social History household members: spouse housing: house current occupational status: employed current occupation: [employer] Smoking Status: Never smoker alcohol intake: former details: social substance use type: does not use caffeine: Yes what type of physical activity do you participate in: none seatbelt use: always do you feel safe at home: Yes additional social history: - Jed HPI History of Present Illness History provided by: patient HPI: Mariia Davidson is a 44 year old female who presents today for follow up evaluation. Patient reports that she continues to have problems with sleep getting about 5 hours last night. Describes not feeling tired, did some shopping in the middle of the night. Did sleep 11 hours over the weekend, and states that she urinated in her sleep. Has stopped taking an extra clonazepam after vacation as it was making her tired. [place] that she was yawning too much with taking. Has been having nightmares the past few nights, and has been waking up feeling panicky. 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 She does feel like the depakote has been helping to some degree. Has not appreciated any benefit with risperidone to this point. States she vacillated between irritable or having time of life during vacation. Was eating too much, and did so much that she literally threw up on side of road. Has not reengaged in therapy. Denies Review of Systems Constitutional Reports: change in weight; Denies: fever(s) or chills Eyes Denies: change in vision or blurry vision Ears, Nose, Mouth, Throat Denies: throat pain, neck pain or change in hearing Cardiovascular Denies: chest pain, palpitations or dyspnea Respiratory Denies: dyspnea, cough or wheezing Gastrointestinal Denies: abdominal pain, nausea, vomiting, diarrhea or co (more content not included)... Normal [facility] Valproic Acid (Depakene) Lev edwige 01-23-2025 VALPROIC ACID 44 ug/mL Low 50-100 [facility] Comment on above: Result Comment: Valp roic Acid concentrations >100 ug/mL are potentially toxic. Performed By: #### L 500.4050, L501.8100, L100.0100 ####[facility] [address] [place], [address] MR/CLAUDIA.BPon 01-09-2025 MR/CLAUDIA. [facility], [address] [place] [address] OFFICE VISIT Date of Service: 01/09/25 MR#: [id number] Acct: [id number] Name: MARIIA DAVIDSON Rep #: [id number] : 1980 Provider: Dr. Kurtis Higuera se, DO Age/Sex: 44/F Location: [facility] Status: Signed Intake Vital Signs 01/02/25 13:02 01/09/25 09:18 Height 5 ft 9 in 5 ft 9 in Weight: 159 lb BMI 23.4 BP 146/82 H Blood Pressure Location Lt brachial Position Sitting Respiration 16 Pulse 86 Pulse Source Monitor BP Intake Visit Reasons: Follow up Allergies No Known Allergies Allergy (Verified 11/01/24 08:30) PFS Medical History (Updated 11/01/24 @ 10:40 by KATHRYN Hearn) Leg cramps PONV (postoperative nausea and vomiting) CRVO (central retinal vein occlusion) Right ureteral calculus Anxiety Bipolar 2 disorder Thyroid disease ( 10/12/24) Diabetes Anemia Fatty liver Migraine headache Chronic diarrhea Non-smoker Decreased circulation Insomnia Bipolar 1 disorder Diarrhea Alcoholic hepatitis Breast lump Alcohol abuse Hypertension Surgical History H/O breast implant H/O gastric sleeve Hx of cystoscopy Hx laparoscopic cholecystectomy Hx of colonoscopy Hx of tonsillectomy delivery delivered Family History Father Heart disease Mother Cancer lung- smoker Social History household members: spouse housing: house current occupational status: employed current occupation: [employer] Smoking Status: Never smoker alcohol intake: former details: social substance use type: does not use caffeine: Yes what type of physical activity do you participate in: none seatbelt use: always do you feel safe at home: Yes additional social history: - Jed HPI History of Present Illness History provided by: patient HPI: Mariia Davidson is a 44 year old female who presents today for follow up evaluation. Patient states that she has been wildly out of control. Elaborates that she has been blowing up on everyone. Has been happening for several weeks. Has been scheduling 15 patients (15 hours) per day nearly every day. Yesterday went to the piercing parlor with intent of getting something done without any idea what she was going to have done. Finds this very impulsive. Feels like she is vibrating; has sensation that there are bugs on her, and is extremely restless. Describes sending very long messages to her about her life. Was told by that she is manic. Has not felt this bad since when she was in [place] in 2011. Elaborates that this is the worst it has been in a prolonged period. Has been trying to utilize DBT skills. Feels like she has no control of anything and everything is chaotic. Plans to go on vacation on Tuesday and will be going to [facility]. Recently invited some people on vacation after impulsively inviting them, and sort of regrets doing so. Filed a police report on her stylist after cancelling on her. Son was diagnosed with ODD in recent past. Denies any thoughts of suicide. Denies HI. Denies thoughts of self harm. Stopped following with Blossom, her therapist as well. Had binge ate recently to point of throwing up 4x because she ate so much. Has been taking medication regularly. Reports no sexual activity in prolonged period. Denies any possibility of being . Review of Systems Constitutional Reports: change in weight and fatigue; Denies: fever(s) or chills Eyes Denies: change in vision or blurry vision Ears, Nose, Mouth, Throat Denies: throat pain, neck pain or change in hearing Cardiovascular Denies: chest pain, palpitations or dyspnea Respiratory Denies: dyspnea, cough or wheezing Gastrointestinal Denies: abdominal pain, nausea, vomiting, diarrhea or constipation Genitourinary Denies: dysuria or urinary frequency Musculoskeletal Denies: neck pain, joint pain or muscle weakness Integumentary/Breast Denies: rash or new lesions Neurological Denies: headache(s), dizziness or confusion Endocrine Reports: fatigue; Denies: excessive sweating Hematologic/Lymphatic Denies: easy bruising or easy bleeding Allergic/Immunologic Denies: wheezing Exam Mental Status Exam - Psych Appearance well kempt Attitude other (Nearly dysphoric) Activity/Motor Behavior restless and avoids eye contact Speech regular rate, regular volume and regular prosody Mood depressed Affect restricted and tearful Thought Process linear and tangential Thought Content no delusions and no hallucinations Suicidal Ideation none Homicidal Ideation none Attention intact Concentration intact Se (more content not included)... Normal [facility] Chest PA and Lateralon 11-01 Chest PA and Lateral [facility] Imaging Services [address] [place] [address] Chest PA and Lateral MR#: [id number] Acct: [id number] Name: MARIIA DAVIDSON Rep #: [id number] : 1980 F 43 From: Stepan ellis MD PCP: Dr. Karina Gonzalez MD Status: DEP AMB Study: Chest PA and Lateral Date of Exam: 11/01/24 Exam# [id number] Ordering Dr: Neymar Thompson PROCEDURE: CHEST PA AND LATERAL 11/01/2024 REASON FOR EXAM: COUGH, SOB TECHNIQUE: Frontal and lateral views of the chest. COMPARISON: None FINDINGS: Hardware: None Heart: The heart size is normal. Mediastinum: The mediastinal contour is unremarkable. Lungs: Hyperinflation. Scattered calcified granulomas. No acute abnormality is seen. Bones: Unremarkable Bilateral breast implants. RAD/Chest PA and Lateral IMPRESSION: Hyperinflation. The lungs are clear. Reading Location: [facility]- CC: KATHRYN Capps; Dr. Karina Gonzalez MD Slip Cover Seamstress: Signed Normal [facility] Urgent Care Visit Reporton 0 11-01-2024 Urgent Care Visit Report [facility] [address], [address] [place] [address] OFFICE VISIT Date of Service: 11/01/24 MR#: [id number] Acct: [id number] Name: MARIIA DAVIDSON Rep #: [id number] : 1980 Provider: KATHRYN Capps Age/Sex: 43/F Location: [facility] Status: Signed Intake Vital Signs 10/12/24 10:37 11/01/24 08:23 Height 5 ft 9 in Weight: 183 lb 2 oz BMI 27.0 BP 125/86 H 112/62 Blood Pressure Location Lt brachial Position Sitting Respiration 15 Pulse 84 Pulse Source NIBP Temp 98.6 F Temp Source Oral Pulse Oximetry (%) 98 Oxygen Delivery Method room air Intake Visit Reasons: CHRISTIAN/COUGH Chief Complaint: cough, chest congest, mucus Graves Registration Specialist Required: No Is patient in pain?: Yes Allergies No Known Allergies Allergy (Verified 11/01/24 08:30) Medications ???Medication ???Instructions ???Recorded ???Confirmed ???Type potassium chloride 20 mEq 20 meq PO BID supplement 12/13/21 10/12/24 History tablet,extended release levothyroxine 25 mcg tablet 50 mcg PO DAILY thyroid 07/06/22 0 10/12/24 History colestipol 1 gram tablet 2 g (2 x 1 gram) PO BID . #60 tabs 12/22/22 10/12/24 Rx ondansetron 4 mg disintegrating 4 mg PO Q8H PRN PRN Nausea #10 tab s 05/14/23 10/12/24 Rx tablet jxrslwpk-ybmbpipa-jmg n 45 mg-folic cap PO 07/11/24 10/12/24 History acid 800 mcg-vit K 120 mcg capsule (Bariatric Multivitamins) tirzepatide 2.5 mg/0.5 mL 2.5 mg subcut QWEEK 07/11/2410/12 History subcutaneous pen injector (Mounjaro) clonazepam 1 mg tablet 1 mg PO BID PRN anxiety #60 tabs 0 09/19/24 10/12/24 Rx gabapentin 300 mg capsule 300 mg PO BID 30 days #60 caps 03/0710/12/24 Rx lamotrigine 150 mg tablet 150 mg PO QDAY 30 days #30 tabs 10/12/24 Rx lurasidone 120 mg tablet See Rx Instructions .Route 5 10/12/24 Rx .COMPLEX #30 tabs sertraline 100 mg tablet 200 mg (2 x 100 mg) PO QHS #60 Rx TABLETS azithromycin 250 mg tablet See Rx Instructions PO .COMPLEX #6 11/01/24 11/01/24 Rx tabs dextromethorphan HBr 15 mg/5 mL 15 mg (5 mL) PO ONCE #118 mL 11/0111/01/24 Rx oral liquid Is last menstrual period known: No Post menopausal: No Patient : No Have you fallen in the past year?: No Nurse's Note: cough, chest congest, mucus, lung pain on left side x 2 weeks. denies fever. concern for pneumonia. [facility] Medical History (Updated 11/01/24 @ 10:40 by Neymar PERALTA, KATHRYN) Leg cramps PONV (postoperative nausea and vomiting) CRVO (central retinal vein occlusion) Right ureteral calculus Anxiety Bipolar 2 disorder Thyroid disease ( 10/12/24) Diabetes Anemia Fatty liver Migraine headache Chronic diarrhea Non-smoker Decreased circulation Insomnia Bipolar 1 disorder Diarrhea Alcoholic hepatitis Breast lump Alcohol abuse Hypertension Surgical History H/O breast implant H/O gastric sleeve Hx of cystoscopy Hx laparoscopic cholecystectomy Hx of colonoscopy Hx of tonsillectomy delivery delivered Family History Father Heart disease Mother Cancer lung- smoker Social History household members: spouse housing: house current occupational status: employed current occupation: [employer] Smoking Status: Never smoker alcohol intake: former details: social substance use type: does not use caffeine: Yes what type of physical activity do you participate in: none seatbelt use: always do you feel safe at home: Yes additional social history: - Jed [facility] HPI Chief Complaint: cough, chest congest, mucus Details: MARIIA DAVIDSON, is a 43 F who presents to the office today for complaint of cough and chest congestion for the past 2 weeks. Patient denies hemoptysis, shortness of breath or difficulty breathing. No fever, chills or sweats. No nausea, vomiting or diarrhea. No other associated symptoms or alleviating/aggravati ng factors. ROS Const Constitutional: No other (6 system ROS completed with pertinent findings in the HPI otherwise normal.) Exam Const General: cooperative and well developed HENMT Head: normal to inspection and atraumatic Ears: hearing grossly normal bilaterally Nose: nasal discharge clear Face and sinus: normal facial exam Mouth: oral mucosae normal Throat: abnormal tonsil bilaterally hypertrophy 1+ Resp Effort Inspection: normal respiratory effort and no audible wheezes Auscultation: Bilateral: Clear to Auscultation Cardio Rate: regular rate Rhythm: regular rhythm Neuro General: patient alert Psych Appearance: grossly normal Mental Status: mental status yahir (more content not included)... Normal [facility] PAP IG HPV APTIMA 16/18,45on 10-17-2024 ADEQ Comment Normal . [facility] Comment on above: Order Comment: Speci men Comment: [id number] Comment: No. of containers..01 ThinPrep Vial Result Comment: Sati sfactory for evaluation. No endocervical component is identified. Performed By: #### L 7400.0280 ####[facility] [address] [place], [place], [id number] COMM . Normal . [facility] Comment on above: Order Comment: Speci men Comment: [id number] Comment: No. of containers..01 ThinPrep Vial Performed By: #### L 7400.0280 ####[facility] [address] [place], [place], [id number] COMMENT Comment Normal . [facility] Comment on above: Order Comment: Speci men Comment: [id number] Comment: No. of containers..01 ThinPrep Vial Result Comment: This liquid based ThinPrep(R) pap test was screened with the use of an image guided system. Performed By: #### L 7400.0280 ####[facility] [address] [place], [address] DIAG Comment Normal . [facility] Comment on above: Order Comment: Speci men Comment: [id number] Comment: No. of containers..01 ThinPrep Vial Result Comment: NEGA TIVE FOR INTRAEPITHELIAL LESION OR MALIGNANCY. THIS SPECIMEN WAS RESCREENED PART OF OUR MACHINE OR MACHINERY MECHANIC PROGRAM. Performed By: #### L 7400.0280 ####[facility] [address] [place], [place], [id number] HPV APTIMA, HR Negative Normal Negative [facility] Comment on above: Order Comment: Speci men Comment: [id number] Comment: No. of containers..01 ThinPrep Vial Result Comment: This nucleic acid amplification test detects fourteen high- risk HPV types (16,18,31,33,35,39,45,51,52,56,58,59,66,68) without differentiation. Performed By: #### L 7400.0280 ####[facility] [address] [place], [address] HPV Tamica Rfx Comment Normal . [facility] Comment on above: Order Comment: Speci men Comment: [id number] Comment: No. of containers..01 ThinPrep Vial Result Comment: Crit eria not met, HPV Genotype not performed. Performed at: - [address] [id number] Oil Scout: Syl Spears MD, Phone: [phone] Performed at: = - [address] [id number] Oil Scout: Syl Spears MD, Phone: [phone] Performed By: #### L 7400.0280 ####[facility] [address] [place], [address] PAPSMR Comment Normal . [facility] Comment on above: Order Comment: Speci men Comment: [id number] Comment: No. of containers..01 ThinPrep Vial Result Comment: The Pap smear is a screening test designed to aid in the detection of premalignant and malignant conditions of the uterine cervix. It is not a diagnostic procedure and should not be used as the sole means of detecting cervical cancer. Both false-positive and false-negative reports do occur. Performed By: #### L 7400.0280 ####[facility] [address] [place], [place], [id number] PERFORM Comment Normal . [facility] Comment on above: Order Comment: Speci men Comment: [id number] Comment: No. of containers..01 ThinPrep Vial Result Comment: Teresa Everett, Card Tender (ASCP) Performed By: #### L 7400.0280 ####[facility] [address] [place], [address] QC REV Comment Normal . [facility] Comment on above: Order Comment: Speci men Comment: [id number] Comment: No. of containers..01 ThinPrep Vial Result Comment: Flavio Durant, Card Tender (ASCP) Performed By: #### L 7400.0280 ####[facility] [address] [place], [address] Load Dispatcher Local Office Visit Reporton 10-12-2024 Load Dispatcher Local Office Visit Report [facility] [address], [address] [place] [address] OFFICE VISIT Date of Service: 10/12/24 MR#: [id number] Acct: [id number] Name: MARIIA DAVIDSON Rep #: [id number] : 1980 Provider: Dr. Didi taylor MD Age/Sex: 43/F Location: 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 #60 tabs 12/22/22 10/12/24 Rx ondansetron 4 mg disintegrating 4 mg PO Q8H PRN PRN Nausea #10 tab s 05/14/23 10/12/24 Rx tablet seophaxf-fxaxyjnp-xyb n 45 mg-folic cap PO 07/11/24 10/12/24 History acid 800 mcg-vit K 120 mcg capsule (Bariatric Multivitamins) tirzepatide 2.5 mg/0.5 mL 2.5 mg subcut QWEEK 07/11/2410/12 History subcutaneous pen injector (Mounjaro) sertraline 100 mg tablet 200 mg (2 x 100 mg) PO QHS #60 10/12/24 Rx TABLETS sulfamethoxazole 800 1 tab PO BID 7 days #14 tabs 09/1210/12/24 Rx mg-trimethoprim 160 mg tablet (Bactrim DS) clonazepam 1 mg tablet 1 mg PO BID PRN anxiety #60 tabs 0 09/19/24 10/12/24 Rx gabapentin 300 mg capsule 300 mg PO BID 30 days #60 caps 03/0710/12/24 Rx lamotrigine 150 mg tablet 150 mg PO QDAY 30 days #30 tabs 10/12/24 Rx lurasidone 120 mg tablet See Rx Instructions .Route 5 10/12/24 Rx .COMPLEX #30 tabs Is last menstrual period known: Yes Last Menstrual Period: 09/12/24 (every 35 days, did not have for 13 months before last period) Post menopausal: No Patient : No : No PFSH Medical History (Updated 10/12/24 @ 11:[address] Didi Borrero MD) Leg cramps PONV (postoperative nausea and vomiting) CRVO (central retinal vein occlusion) Right ureteral calculus Anxiety Bipolar 2 disorder Thyroid disease ( 10/12/24) Diabetes Anemia Fatty liver Migraine headache Chronic diarrhea Non-smoker Decreased circulation Insomnia Bipolar 1 disorder Diarrhea Alcoholic hepatitis Breast lump Alcohol abuse Hypertension Surgical History H/O breast implant H/O gastric sleeve Hx of cystoscopy Hx laparoscopic cholecystectomy Hx of colonoscopy Hx of tonsillectomy delivery delivered Family History Father Heart disease Mother Cancer lung- smoker Social History household members: spouse housing: house current occupational status: employed current occupation: [employer] Smoking Status: Never smoker alcohol intake: former details: social substance use type: does not use caffeine: Yes what type of physical activity do you participate in: none seatbelt use: always do you feel safe at home: Yes additional social history: - Jed History 4 Elective abortions Hx Para 3 Spontaneous abortions Hx # Term Pregnancies Ectopic pregnancies Hx # Pregnancies Multiple births # of living children Past Pregnancies Del. Date Name GA/Weeks Outcome Route Bth Weight Infant Gen Labor Lgth Anesthesia Del Locatn Provider FOB Unknown 2011 Robert live - full term Unknown 2012 Logan live - full term Unknown 2015 Breezy live - full term HPI Encounter for routine gynecological examination Details: MARIIA DAVIDSON is a 43 year old who presents for annual exam. Last PAP: about 9 years ago History of abnormal PAP: Last mammogram: 2 months ago at [facility] History of abnormal mammogram: Colon cancer screening: Other preventative health care screenings: PCP Dr. Gonzalez Female Reproductive History Last Menstrual Period: 09/12/24 (every 35 days, did not have for 13 months before last period) Cycle Length: 21-35 Bleeding Duration: 5 Questions: metorrhagia: No, sexually active: Yes, dyspareunia: No and PCB: No Menopausal Symptoms: No hot flashes, No night sweats, No weight change, No mood changes, No difficulty concentrating, No sleep problems and No change in libido ROS Const Constitutional: Reports as per HPI; Denies fatigue, increased appetite, poor appetite, night sweats, weight gain or we (more content not included)... Normal [facility] MR/BMS.BPon 09-26-2024 MR/BMS.BP [facility], [address] [place] [address] OFFICE VISIT Date of Service: 09/26/24 MR#: [id number] Acct: [id number] Name: MARIIA DAVIDSON Rep #: [id number] : 1980 Provider: Dr. Kurtis Higuera se, DO Age/Sex: 43/F Location: [facility] Status: Signed Intake Vital Signs 08/28/24 08:26 09/26/24 06:48 Height 5 ft 9 in 5 ft 9 in BP 121/82 H Blood Pressure Location Lt brachial Position Sitting Respiration 16 Pulse 89 Pulse Source Monitor BP Intake Visit Reasons: 1 M FU Accompanied by: Self Allergies No Known Allergies Allergy (Verified 09/26/24 07:00) Medications ???Medication ???Instructions ???Recorded ???Confirmed ???Type potassium chloride 20 mEq 20 meq PO BID supplement 12/13/21 09/26/24 History tablet,extended release levothyroxine 25 mcg tablet 50 mcg PO DAILY thyroid 07/06/22 0 09/26/24 History colestipol 1 gram tablet 2 g (2 x 1 gram) PO BID . #60 tabs 12/22/22 09/26/24 Rx ondansetron 4 mg disintegrating 4 mg PO Q8H PRN PRN Nausea #10 tab s 05/14/23 09/26/24 Rx tablet lurasidone 120 mg tablet See Rx Instructions .Route 5 09/26/24 Rx .COMPLEX #30 tabs qockpxir-itbnerrg-mcs n 45 mg-folic cap PO 07/11/24 09/26/24 History acid 800 mcg-vit K 120 mcg capsule (Bariatric Multivitamins) tirzepatide 2.5 mg/0.5 mL 2.5 mg subcut QWEEK 07/11/2409/26 History subcutaneous pen injector (Mounjaro) sertraline 100 mg tablet 200 mg (2 x 100 mg) PO QHS #60 09/26/24 Rx TABLETS sulfamethoxazole 800 1 tab PO BID 7 days #14 tabs 09/1209/26/24 Rx mg-trimethoprim 160 mg tablet (Bactrim DS) clonazepam 1 mg tablet 1 mg PO BID PRN anxiety #60 tabs 0 09/19/24 09/26/24 Rx gabapentin 300 mg capsule 300 mg PO BID 30 days #60 caps 03/0709/26/24 Rx lamotrigine 150 mg tablet 150 mg PO QDAY 30 days #30 tabs 09/26/24 Rx PFSH Medical History Leg cramps PONV (postoperative nausea and vomiting) CRVO (central retinal vein occlusion) Right ureteral calculus Anxiety Bipolar 2 disorder Thyroid disease Diabetes Anemia Fatty liver Migraine headache Chronic diarrhea Non-smoker Decreased circulation Insomnia Bipolar 1 disorder Diarrhea Alcoholic hepatitis Breast lump Alcohol abuse Hypertension Surgical History H/O gastric sleeve Hx of cystoscopy Hx laparoscopic cholecystectomy Hx of colonoscopy Hx of tonsillectomy delivery delivered Family History Father Heart disease Mother Cancer lung- smoker Social History household members: spouse housing: house Smoking Status: Never smoker alcohol intake: former details: social substance use type: does not use caffeine: Yes what type of physical activity do you participate in: none seatbelt use: always do you feel safe at home: Yes 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 Patient reports that she has been more irritable in recent past. Reports that she is still in IOP, but has been disappointed with the individual therapy portion. Does not plan to extend IOP as she previously had. Feels like sleep is disrupted, getting about 7 hours of very broken sleep. Not feeling well rested when she wakes up. Has stopped weighing self, but is still extremely restricting diet. Eating largely a cheese stick at lunch and some peanut butter on bread at night. Plans to have [employer] tuck at the beginning of November. Did discuss about potentially moving her surgery so that she does not have additional stressors on her plate but she does not seem receptive to this suggestion. Denies any SI HI or AVH. Review of Systems Constitutional Reports: change in weight and fatigue; Denies: fever(s) or chills Eyes Denies: change in vision or blurry vision Ears, Nose, Mouth, Throat Denies: throat pain, neck pain or change in hearing Cardiovascular Denies: chest pain, palpitations or dyspnea Respiratory Denies: dyspnea, cough or wheezing Gastrointestinal Denies: abdominal pain, nausea, vomiting, diarrhea or constipation Genitourinary Denies: dysuria or urinary frequency Musculoskeletal Denies: neck pain, joint pain or muscle weakness Integumentary/Breast Denies: rash or new lesions Neurological Denies: headache(s), dizziness or confusion Endocrine Reports: fatigue; Denies: excessive sweating Hematologic/Lymphatic Denies: easy bruising or easy bleeding Allergic/Imm (more content not included)... [facility] MARIIA DAVIDSON ([id number]) 1980 F Date Time Provider Department 09/19/24 3:30 PM ABIGAIL MCDERMOTT AGGENS4 During your visit today, we recorded the following information about you: Pulse Blood pressure Weight Height 73/minute 112/72 85.4 kg 1.753 m Abigail Mcdermott MD 09/19/2024 3:28 PM Signed BARIATRIC SURGERY CLINIC FOLLOW UP NOTE Date: September 19, 2024 Time: 2:54 PM Mariia Davidson is a 43 year old year old female with obesity (Body mass index is 27.79 kg/m?.) who presents to the clinic today for follow up after bariatric surgery. She had demonstrated 63% EWL at 3 month post-op. Today at her 6 month follow up she demonstrates 65 lb 12.8 oz weight loss, which represents 77.70% of excess weight loss. She has been on Zepbound since surgery to help with the food noise she was struggling with after surgery Due for labs, orders placed Clinic Date: 09/19/2024 Mariia Davidson, 43 year old [address] [place] [address] [place] [address] Index Surgery Date of Surgery: 03/19/2024 Surgeon Attending: Abigail Mcdermott MD Surgical Procedure: Sleeve gastrectomy Pre-surgical weight: 115.2 kg (254 lb) Other Bariatric Surgeries None Time Since Surgery: 6 months Extra Procedures: None COMPLICATIONS DURING ADMISSION: None Operative Complications: No Complications Prior to Discharge: No COMPLICATIONS SINCE DISCHARGE?: NONE Estimated body mass index is 27.79 kg/m? as calculated from the following: Height as of this encounter: 175.3 cm (5' 9). Weight as of this encounter: 85.4 kg (188 lb 3.2 oz). [place] weight: 76.8 kg (169 lb 5 oz) Excess weight: 38.4 kg (84 lb 11 oz) % of excess body weight lost: 29.8 kg (65 lb 12.8 oz) (77.70% of excess weight loss) Daily approximate Fluid intake: 64 fl oz per 24 hours Daily approximate protein intake: 60 grams per 24 hours Present Activity level: has decreased - had been exercising 2 days a week, but currently is not exercising at all. Have you attended any Support Group? No attendance DIET INTAKE: tolerates Phase V diet DAILY SUPPLEMENTS: Calcium: Calcium Citrate w/ vitamin D (1200 - 1500mg) Multivitamin AND Minerals: 1 per day Iron Supplement: included in multi-vitamin Vitamin A: included in multi-vitamin Vitamin B12: 500 mcg B Complex: included in multi-vitamin Biotin: No Vitamin C: included in multi-vitamin Vitamin D3: included in multi-vitamin Vitamin E: included in multi-vitamin Zinc: included in multi-vitamin Other: N/A PAST MEDICAL HISTORY Diagnosis Date bipolar 2 Breast disorder thick breast tissues with mammogram Central vein occlusion of retina (HCC) Chronic diarrhea HTN (hypertension) Hypothyroidism Nephrolithiasis Non-alcoholic fatty liver disease Obesity depression 2011,2013 Pre-diabetes Preeclampsia (HCC) 2011 Rh incompatibility Secondary anovulatory infertility PAST SURGICAL HISTORY Procedure Laterality Date BREAST AUGMENTATION W/PROSTHETIC IMPLANT Bilateral 03/06/2024 BREAST SURGERY HX Bilateral 11/2023 lift DELIVERY ONLY 07/02/2015 , low transverse SECTION HX 2011,2012 CHOLECYSTECTOMY HX 2022 LITHOTRIPSY XTRCORP SHOCK WAVE x 3 FAMILY HISTORY Problem Relation Age of Onset None Mother Hypertension Father Cancer Maternal Grandmother Social History Tobacco Use Smoking status: Never Smokeless tobacco: Never Vaping Use Vaping status: Never Used Substance Use Topics Alcohol use: Not Currently Alcohol/week: 2.0 standard drinks of alcohol Types: 2 Glasses of wine per week Comment: STOPPED DRINKING 2020 Drug use: No Current Outpatient Medications Medication Sig tirzepatide, weight loss (ZEPBOUND) 2.5 mg/0.5 mL solution Inject 0.5 mL subcutaneously one time a week. pantoprazole DR (PROTONIX) 40 mg tablet Take 1 tablet by mouth once daily. TO START AFTER SURGERY. Take every day for 6 months after surgery. lamoTRIgine (LAMICTAL) 25 mg tablet Take 50 mg by mouth once daily. bevacizumab 0.625 mg in syringe 0.025 mL (AVASTIN) Use 0.625 mg in the right eye one time only. ondansetron (ZOFRAN) 4 mg tablet Take 1 tablet by mouth every 8 hours as needed for nausea/vomiting (for nausea.). biotin 1 mg cap Take by mouth once daily. vitamin b complex capsule Take 1 capsule by mouth once daily. gabapentin (NEURONTIN) 300 mg capsule Take 300 mg by mouth two times a day. colestipol (COLESTID) 1 gram tablet Take 2 g by mouth daily at bedtime. clonazePAM (KLONOPIN) 1 mg tablet Take 1 mg by mouth two times a day as needed for anxiety. amLODIPine (NORVASC) 5 mg tablet Take 2.5 mg by mouth once daily. lurasidone (LATUDA) 120 mg tablet Take by mouth once daily. POTASSIUM CITRATE ORAL Take 15 mEq by mouth once daily. sertraline (ZOLOFT) 100 mg tablet Take 200 mg by mouth once daily. levot (more content not included)... Normal [facility] Urine Cultureon 09-13-2024 URC Below infection level. Mixed Gram Pos Gram Neg Org [place] Count 1000-10,000 MIXC Mixed contaminants. Submit a new specimen if indicated. Normal [facility] Comment on above: Performed By: #### M 100.2200 #### [facility] [address] [place], [place], [id number] Abdomen/Pelvis without Conto n 09-11-2024 Abdomen/Pelvis without Cont [facility] Imaging Services [address] [place] [address] Abdomen/Pelvis without Cont MR#: [id number] Acct: [id number] Name: MARIIA DAVIDSON Rep #: [id number] : 1980 F 43 From: Wilbur Leavitt DO PCP: Dr. Karina Gonzalez MD Status: REG ER Study: Abdomen/Pelvis without Cont Date of Exam: 07/07 Exam# [id number] Ordering Dr: Tin Hairston MD PROCEDURE: ABDOMEN/PELVIS WITHOUT CONT 09/11/2024 REASON FOR EXAM: KIDNEY STONE TECHNIQUE: Abdomen and pelvis CT without intravenous contrast. Noncontrast technique limits evaluation of the abdominal and pelvic viscera. Coronal and Sagittal reconstruction series were provided. One or more dose reduction techniques were used (e.g., Automated exposure control, adjustment of the mA and/or kV according to patient size, use of iterative reconstruction technique). PATIENT PREPARATION: Per protocol ORAL CONTRAST TYPE: None. AMOUNT: mL COMPARISON: CT of the abdomen and pelvis dated 05/14/2023. FINDINGS: Lung bases: Unremarkable Liver: Hepatomegaly. Gallbladder: Surgically absent Spleen: Splenomegaly Pancreas: Normal size. No surrounding inflammation. Adrenals: Unremarkable Kidneys: Mild left perinephric stranding with multiple nonobstructing renal calculi, the largest of which is identified within the lower pole measuring 1.2 cm. Cortical scarring of the left kidney. Left kidney is atrophic. Prominent left renal pelvis. No obstructing stone. Right kidney is grossly unremarkable. Bladder: Unremarkable Reproductive Organs: Normal uterine size and contour. Ovaries are unremarkable. Bowel: Status post gastrectomy. No inflammatory changes of the bowel loops. Appendix: Unremarkable Lymph nodes: Prominent para-aortic lymph node. Vasculature: The abdominal aorta and IVC contours are normal. Noncontrast technique limits evaluation. Peritoneum / Retroperitoneum: No free air free fluid. Bones: Unremarkable CT/Abdomen/Pelvis without Cont IMPRESSION: Multiple nonobstructing left renal calculi with prominent left renal pelvis. No obstructing stone is visualized. Mild left perinephric stranding. Hepatosplenomegaly. [facility] CC: Dr. Tin Hairston MD; Dr. Karina Gonzalez MD Slip Cover Seamstress: Signed Normal [facility] CBC W/Diff, Automatedon Absolute Lymph 2.11 X10 3/uL Normal 0.83-4.51 [facility] Comment on above: Performed By: #### L 700.6800, L100.0100, L500.4050 #### [facility] [address] [place], [address] Absolute Neut 1.8 X10 3/uL Low 2.0-7.7 [facility] Comment on above: Performed By: #### L 700.6800, L100.0100, L500.4050 #### [facility] [address] [place], [address] Basophils/100 WBC (Bld) 0.5 % Normal 0-1 [facility] Comment on above: Performed By: #### L 700.6800, L100.0100, L500.4050 #### [facility] [address] [place], [address] Eosinophils/100 WBC (Bld) 2.1 % Normal 0-5 [facility] Comment on above: Performed By: #### L 700.6800, L100.0100, L500.4050 #### [facility] [address] [place], [address] Erythrocyte distribution width (RBC) [Ratio] 13.0 % Normal 11.6-14.6 [facility] Comment on above: Performed By: #### L 700.6800, L100.0100, L500.4050 #### [facility] [address] [place], [address] Hematocrit (Bld) [Volume fraction] 39.4 % Normal 37-47 [facility] Comment on above: Performed By: #### L 700.6800, L100.0100, L500.4050 #### [facility] [address] [place], [address] Hemoglobin (Bld) [Mass/Vol] 13.5 g/dL Normal 12.0-15.0 [facility] Comment on above: Performed By: #### L 700.6800, L100.0100, L500.4050 #### [facility] [address] [place], [address] IG% 0.000 Normal 0.0-0.9 [facility] Comment on above: Result Comment: IG% - Immature Granulocytes (promyelocytes, myelocytes and metamyelocytes) > 1% indicates that a LEFT SHIFT is Present. Performed By: #### L 700.6800, L100.0100, L500.4050 #### [facility] [address] [place], [address] Lymphocytes/100 WBC (Bld) 48.4 % High 19-41 [facility] Comment on above: Performed By: #### L 700.6800, L100.0100, L500.4050 #### [facility] [address] [place], [address] MCH (RBC) [Entitic mass] 29.9 pg Normal 27.0-32.0 [facility] Comment on above: Performed By: #### L 700.6800, L100.0100, L500.4050 #### [facility] [address] [place], [address] MCHC (RBC) [Mass/Vol] 34.3 g/dL Normal 32-36 [facility] Comment on above: Performed By: #### L 700.6800, L100.0100, L500.4050 #### [facility] [address] [place], [address] MCV (RBC) [Entitic vol] 87.4 fL Normal 81-99 [facility] Comment on above: Performed By: #### L 700.6800, L100.0100, L500.4050 #### [facility] [address] [place], [address] Monocytes/100 WBC (Bld) 6.9 % Normal 0-10 [facility] Comment on above: Performed By: #### L 700.6800, L100.0100, L500.4050 #### [facility] [address] [place], [address] Neutrophils/100 WBC (Bld) 42.1 % Low 47-70 [facility] Comment on above: Performed By: #### L 700.6800, L100.0100, L500.4050 #### [facility] [address] [place], [address] Nucleated RBC (Bld) [#/Vol] 0 10*3/uL Normal 0-5 [facility] Comment on above: Performed By: #### L 700.6800, L100.0100, L500.4050 #### [facility] [address] [place], [address] Platelet mean volume (Bld) [Entitic vol] 9.1 fL Normal 6.2-12.0 [facility] Comment on above: Performed By: #### L 700.6800, L100.0100, L500.4050 #### [facility] [address] [place], [address] Platelets (Bld) [#/Vol] 140 10*3/uL Low 150-450 [facility] Comment on above: Performed By: #### L 700.6800, L100.0100, L500.4050 #### [facility] [address] [place], [address] RBC (Bld) [#/Vol] 4.51 10*6/uL Normal 4.2-5.4 [facility] Comment on above: Performed By: #### L 700.6800, L100.0100, L500.4050 #### [facility] [address] [place], [address] RDW SD 41.1 fl Normal 35.1-43.9 [facility] Comment on above: Performed By: #### L 700.6800, L100.0100, L500.4050 #### [facility] [address] [place], [address] WBC (Bld) [#/Vol] 4.4 10*3/uL Normal 4.4-11.0 [facility] Comment on above: Performed By: #### L 700.6800, L100.0100, L500.4050 #### [facility] [address] [place], [address] Comprehensive Metabolic Prof ilon 09-11-2024 Albumin [Mass/Vol] 4.8 g/dL Normal 3.5-5.0 [facility] Comment on above: Performed By: #### L 700.6800, L100.0100, L500.4050 ####[facility] [address] [place], [address] Albumin/Globulin [Mass ratio] 2.3 {ratio} Normal 0.9-2.4 [facility] Comment on above: Performed By: #### L 700.6800, L100.0100, L500.4050 ####[facility] [address] [place], [address] ALK PHOS 63 U/L Normal 35-104 [facility] Comment on above: Performed By: #### L 700.6800, L100.0100, L500.4050 ####[facility] [address] [place], [address] ALT [Catalytic activity/Vol] 12 U/L Normal <=34 [facility] Comment on above: Performed By: #### L 700.6800, L100.0100, L500.4050 ####[facility] [address] [place], [address] AST [Catalytic activity/Vol] 20 U/L Normal <=31 [facility] Comment on above: Performed By: #### L 700.6800, L100.0100, L500.4050 ####[facility] [address] [place], [address] Bilirubin [Mass/Vol] 0.42 mg/dL Normal 0.00-1.30 [facility] Comment on above: Performed By: #### L 700.6800, L100.0100, L500.4050 ####[facility] [address] [place], [address] BUN/CRE 7.5 RATIO Low 10-20 [facility] Comment on above: Performed By: #### L 700.6800, L100.0100, L500.4050 ####[facility] [address] [place], [address] Calcium [Mass/Vol] 9.4 mg/dL Normal 7.6-11.0 [facility] Comment on above: Performed By: #### L 700.6800, L100.0100, L500.4050 ####[facility] [address] [place], [address] Chloride [Moles/Vol] 105 mmol/L Normal 98-108 [facility] Comment on above: Performed By: #### L 700.6800, L100.0100, L500.4050 ####[facility] [address] [place], [address] CO2 [Moles/Vol] 17.5 mmol/L Low 21.0-32.0 [facility] Comment on above: Performed By: #### L 700.6800, L100.0100, L500.4050 ####[facility] [address] [place], [address] Creatinine [Mass/Vol] 1.24 mg/dL High 0.70-1.20 [facility] Comment on above: Performed By: #### L 700.6800, L100.0100, L500.4050 ####[facility] [address] [place], [address] ECRCL 68.30 ml/min Normal 50-250 [facility] Comment on above: Performed By: #### L 700.6800, L100.0100, L500.4050 ####[facility] [address] [place], [address] GAP 16 High 5-15 [facility] Comment on above: Performed By: #### L 700.6800, L100.0100, L500.4050 ####[facility] [address] [place], [address] GFR/1.73 sq M.predicted among non-blacks MDRD (S/P/Bld) [Vol rate/Area] 55 mL/min/{1.73_m2} Low >60 [facility] Comment on above: Result Comment: mL/m in/1.73m2 CKD-EPI Creatinine Equation (2020) Performed By: #### L 700.6800, L100.0100, L500.4050 ####[facility] [address] [place], [address] Globulin (S) [Mass/Vol] 2.1 g/dL Low 2.2-4.2 [facility] Comment on above: Performed By: #### L 700.6800, L100.0100, L500.4050 ####[facility] [address] [place], [address] Glucose [Mass/Vol] 64 mg/dL Low 70-99 [facility] Comment on above: Performed By: #### L 700.6800, L100.0100, L500.4050 ####[facility] [address] [place], [address] Potassium [Moles/Vol] 4.3 mmol/L Normal 3.3-5.1 [facility] Comment on above: Performed By: #### L 700.6800, L100.0100, L500.4050 ####[facility] [address] [place], [address] Sodium [Moles/Vol] 139 mmol/L Normal 133-145 [facility] Comment on above: Performed By: #### L 700.6800, L100.0100, L500.4050 ####[facility] [address] [place], [address] T PROT 6.8 g/dL Normal 5.9-8.4 [facility] Comment on above: Performed By: #### L 700.6800, L100.0100, L500.4050 ####[facility] [address] [place], [address] Urea nitrogen [Mass/Vol] 9 mg/dL Normal 4-19 [facility] Comment on above: Performed By: #### L 700.6800, L100.0100, L500.4050 ####[facility] [address] [place], [address] Emergency Department Summary on 09-11-2024 Emergency Department Summary [facility] Medical Records Department [address] [place] [address] Emergency Department Summary 09/11/24 MR#: [id number] Acct: [id number] Name: MARIIA DAVIDSON Rep #: [id number] : 1980 43 From: Tin Hairston MD PCP: Dr. Karina Gonzalez MD Status:REG ER Location: ED HPI History of Present Illness Chief Complaint: Flank Pain Narrative Narrative: 43-year-old female past medical history of previous kidney stones and ureteral stones, sees Dr. Durham, presents with right sided flank pain that began around 5 PM, almost 5 hours ago. Was sudden onset and felt similar to her previous ureterolithiasis. She states the last kidney stone was approximately over a year ago. Today she experienced mild nausea but no vomiting. No exacerbating or alleviating factors. However, upon initial examination, she think she may have passed a stone already as she is currently pain-free. She has not noticed any dysuria or gross hematuria today. It was mainly on the right side. She does state that she has had previous surgical procedures by urology to her left kidney/ureter. No fevers or chills. [facility] Medical History Leg cramps PONV (postoperative nausea and vomiting) CRVO (central retinal vein occlusion) Right ureteral calculus Anxiety Bipolar 2 disorder Thyroid disease Diabetes Anemia Fatty liver Migraine headache Chronic diarrhea Non-smoker Decreased circulation Insomnia Bipolar 1 disorder Diarrhea Alcoholic hepatitis Breast lump Alcohol abuse Hypertension Home Medications ???Medication ???Instructions ???Recorded ???Last Taken ???Type potassium chloride 20 mEq 20 meq PO BID supplement 12/13/21 03/24/23 History tablet,extended release levothyroxine 25 mcg tablet 50 mcg PO DAILY thyroid 07/06/22 1 History colestipol 1 gram tablet 2 g (2 x 1 gram) PO BID . #60 tabs 12/22/22 03/24/23 Rx ondansetron 4 mg disintegrating 4 mg PO Q8H PRN PRN Nausea #10 tab s 05/14/23 Unknown Rx tablet lurasidone 120 mg tablet See Rx Instructions .Route 5 Unknown Rx .COMPLEX #30 tabs axacltsb-wpfdjarb-knv n 45 mg-folic cap PO 07/11/24 Unknown History acid 800 mcg-vit K 120 mcg capsule (Bariatric Multivitamins) tirzepatide 2.5 mg/0.5 mL 2.5 mg subcut QWEEK 07/11/24 Unkno wn History subcutaneous pen injector (Mounjaro) clonazepam 1 mg tablet 1 mg PO BID PRN anxiety #60 tabs 0 07/18/24 Unknown Rx gabapentin 300 mg capsule 300 mg PO BID 30 days #60 caps 11/04 Unknown Rx sertraline 100 mg tablet 200 mg (2 x 100 mg) PO QHS #60 Unknown Rx TABLETS lamotrigine 100 mg tablet 100 mg PO QDAY 30 days #30 tabs Unknown Rx sulfamethoxazole 800 1 tab PO BID 7 days #14 tabs 09/12 Unknown Rx mg-trimethoprim 160 mg tablet (Bactrim DS) Allergy/AdvReac Type Severity Reaction Status Date / Time No Known Allergies Allergy Verified 09/11/24 20:20 Family History Father Heart disease Mother Cancer lung- smoker Surgical History H/O gastric sleeve Hx of cystoscopy Hx laparoscopic cholecystectomy Hx of colonoscopy Hx of tonsillectomy delivery delivered Social History household members: spouse housing: house Smoking Status: Never smoker alcohol intake: former details: social substance use type: does not use caffeine: Yes what type of physical activity do you participate in: none seatbelt use: always do you feel safe at home: Yes additional social history: [employer] Patient works at [employer] ED ROS Narrative Review of systems positive for right flank pain. No fevers or chills. Positive nausea, no vomiting. No exacerbating or alleviating factors to her flank pain. No gross hematuria or dysuria. EXAM Physical Exam Narrative Exam Narrative: Afebrile. Vital signs noted. Nontoxic-appearing. Cardiovascular examination reveals a regular rate and rhythm. Lungs are clear to auscultation bilaterally. Abdomen is soft, nontender, without guarding or rebound. Positive bowel sounds. No CVA tenderness to percussion, right. Neurological examination nonfocal, nonlateralizing. Const Vital Signs: 09/11/24 20:19 09/11/24 22:19 Temperature 97.7 F L Temperature Source Oral Pulse Rate 75 70 Respiratory Rate 18 16 Blood Pressure 150/97 H 116/78 Blood Pressure Mean 114 90 Pulse Ox 100 98 Oxygen Delivery Method Room Air MDM MDM MDM Narrative Medical decision making narrative: Differential diagnosis includes but not limited to ureterolithiasis versus passed kidney stone versus musculoskeletal p (more content not included)... Normal [facility] ,Serum,hCG Quali.on 09-11-2024 HCG, SERUM QUAL Negative Normal [facility] Comment on above: Performed By: #### L 700.6800, L100.0100, L500.4050 ####[facility] [address] [place], [place], [id number] Urinalysis, Completeon 09-11 BACTERIA RARE Normal None Seen [facility] Comment on above: Order Comment: REGAN CTOR TO SPECIFY Performed By: #### L 400.0001 #### [facility] [address] [place], [address] CAST,HYALINE 0-5 SEEN Normal 0-5 [facility] Comment on above: Order Comment: REGAN CTOR TO SPECIFY Performed By: #### L 400.0001 #### [facility] [address] [place], [address] EPI,SQUAMOUS 5-10 SEEN Normal 5-10 [facility] Comment on above: Order Comment: REGAN CTOR TO SPECIFY Performed By: #### L 400.0001 #### [facility] [address] [place], [address] EPI,TRANSITION 5-10 SEEN Normal 0-5 [facility] Comment on above: Order Comment: REGAN CTOR TO SPECIFY Performed By: #### L 400.0001 #### [facility] [address] [place], [address] RBC 0-5 SEEN Normal 0-5 [facility] Comment on above: Order Comment: REGAN CTOR TO SPECIFY Performed By: #### L 400.0001 #### [facility] [address] [place], [address] WBC 50-100 SEEN Normal 0-5 [facility] Comment on above: Order Comment: REGAN CTOR TO SPECIFY Performed By: #### L 400.0001 #### [facility] [address] [place], [address] BILIRUBIN URINE Negative Normal Negative [facility] Comment on above: Order Comment: REGAN CTOR TO SPECIFY Performed By: #### L 400.0001 #### [facility] [address] [place], [address] Clarity (U) Clear Normal Clear [facility] Comment on above: Order Comment: REGAN CTOR TO SPECIFY Performed By: #### L 400.0001 #### [facility] [address] [place], [address] Color (U) Yellow Normal Yellow [facility] Comment on above: Order Comment: REGAN CTOR TO SPECIFY Performed By: #### L 400.0001 #### [facility] [address] [place], [address] GLUCOSE, UR Normal Normal Normal [facility] Comment on above: Order Comment: REGAN CTOR TO SPECIFY Performed By: #### L 400.0001 #### [facility] [address] [place], [address] KETONE UR Negative Normal Negative [facility] Comment on above: Order Comment: REGAN CTOR TO SPECIFY Performed By: #### L 400.0001 #### [facility] [address] [place], [address] LEUK ESTERASE 500 /ul Abnormal Negative [facility] Comment on above: Order Comment: REGAN CTOR TO SPECIFY Performed By: #### L 400.0001 #### [facility] [address] [place], [address] Nitrite Ql (U) Negative Normal Negative [facility] Comment on above: Order Comment: REGAN CTOR TO SPECIFY Performed By: #### L 400.0001 #### [facility] [address] [place], [address] OCCULT BLOOD-UR Negative Normal Negative [facility] Comment on above: Order Comment: REGAN CTOR TO SPECIFY Performed By: #### L 400.0001 #### [facility] [address] [place], [address] pH UR 7.0 Normal 5.0 - 8.0 [facility] Comment on above: Order Comment: REGAN CTOR TO SPECIFY Performed By: #### L 400.0001 #### [facility] [address] [place], [address] PROT DIPSTX 15 mg/dl Abnormal Negative [facility] Comment on above: Order Comment: REGAN CTOR TO SPECIFY Performed By: #### L 400.0001 #### [facility] [address] [place], [address] SP.GR. DIPSTX 1.010 Normal 1.002-1.030 [facility] Comment on above: Order Comment: COLLE CTOR TO SPECIFY Performed By: #### L 400.0001 #### [facility] [address] [place], [address] UROBILI Normal Normal Normal [facility] Comment on above: Order Comment: REGAN CTOR TO SPECIFY Performed By: #### L [id number] #### [facility] [address] [place], [address] Mucus Ql (Urine sed) 0 SEEN Normal [facility] Comment on above: Order Comment: COLLE CTOR TO SPECIFY Performed By: #### L [id number] #### [facility] [address] [place], [address] MR/BMS.BPon 08-28-2024 MR/BMS.BP [address], [address] [place] [address] OFFICE VISIT Date of Service: 08/28/24 MR#: [id number] Acct: [id number] Name: MARIIA DAVIDSON Rep #: [id number] : 1980 Provider: Dr. Kurtis Higuera se, DO Age/Sex: 43/F Location: [facility].BP Status: Signed Intake Vital Signs 07/31/24 06:48 08/28/24 08:26 Height 5 ft 9 in 5 ft 9 in BP 110/72 108/73 Blood Pressure Location Lt brachial Lt brachial Position Sitting Sitting Respiration 16 16 Pulse 70 76 Pulse Source Monitor Monitor BP Intake Visit Reasons: 1 M FU Accompanied by: Self Allergies No Known Allergies Allergy (Verified 08/28/24 08:32) Medications ???Medication ???Instructions ???Recorded ???Confirmed ???Type potassium chloride 20 mEq 20 meq PO BID supplement 12/13/21 08/28/24 History tablet,extended release levothyroxine 25 mcg tablet 50 mcg PO DAILY thyroid 07/06/22 0 08/28/24 History colestipol 1 gram tablet 2 g (2 x 1 gram) PO BID . #60 tabs 12/22/22 08/28/24 Rx ondansetron 4 mg disintegrating 4 mg PO Q8H PRN PRN Nausea #10 tab s 05/14/23 08/28/24 Rx tablet lurasidone 120 mg tablet See Rx Instructions .Route 5 08/28/24 Rx .COMPLEX #30 tabs alsetbwp-jmbyutmm-pqa n 45 mg-folic cap PO 07/11/24 08/28/24 History acid 800 mcg-vit K 120 mcg capsule (Bariatric Multivitamins) tirzepatide 2.5 mg/0.5 mL 2.5 mg subcut QWEEK 07/11/2408/28 History subcutaneous pen injector (Violetta) clonazepam 1 mg tablet 1 mg PO BID PRN anxiety #60 tabs 0 07/18/24 08/28/24 Rx gabapentin 300 mg capsule 300 mg PO BID 30 days #60 caps 11/0408/28/24 Rx sertraline 100 mg tablet 200 mg (2 x 100 mg) PO QHS #60 08/28/24 Rx TABLETS lamotrigine 100 mg tablet 100 mg PO QDAY 30 days #30 tabs 08/28/24 Rx PFSH Medical History Leg cramps PONV (postoperative nausea and vomiting) CRVO (central retinal vein occlusion) Right ureteral calculus Anxiety Bipolar 2 disorder Thyroid disease Diabetes Anemia Fatty liver Migraine headache Chronic diarrhea Non-smoker Decreased circulation Insomnia Bipolar 1 disorder Diarrhea Alcoholic hepatitis Breast lump Alcohol abuse Hypertension Surgical History (Updated 04/17/24 @ 07:39 by Susana Marshall) H/O gastric sleeve Hx of cystoscopy Hx laparoscopic cholecystectomy Hx of colonoscopy Hx of tonsillectomy delivery delivered Family History Father Heart disease Mother Cancer lung- smoker Social History (Updated 04/17/24 @ 07:39 by Susana Martinez Smoking Status: Never smoker alcohol intake: former details: social substance use type: does not use caffeine: Yes what type of physical activity do you participate in: none seatbelt use: always do you feel safe at home: Yes additional social history: [employer] Patient works at [employer] History of Present Illness History provided by: patient HPI: Mairia Davidson is a 43 year old female who presents today for follow up evaluation. Just picked up her increased dose of lamotrigine, and will be starting 100 mg tablets today. Has been feeling somewhat better in recent past. At least partially believes that this is secondary to having the time to care for herself. Was initially hesitant to [employer] [facility] but since committing more to it, has found it beneficial. Feels less irritable than she had before. Feels like she might be hypo because she spent nearly $12,000 after she got a loan against her car. Was initially going to use towards taxes, but then spent it and her father will be paying it. Now has scheduled a tummy tuck in November. Also scheduled for breast augmentation in September. Feels both reckless but still controlled. Has been feeling tired much of the time however. Has been trying to eat somewhat better, however not significantly better amount of calories. Denies SI/HI or AVH. Review of Systems Constitutional Reports: change in weight and fatigue; Denies: fever(s) or chills Eyes Denies: change in vision or blurry vision Ears, Nose, Mouth, Throat Denies: throat pain, neck pain or change in hearing Cardiovascular Denies: chest pain, palpitations or dyspnea Respiratory Denies: dyspnea, cough or wheezing Gastrointestinal Denies: abdominal pain, nausea, vomiting, diarrhea or constipation Genitourinary Denies: dysuria or urinary frequency Musculoskeletal Denies: neck pain, joint pain or muscle weakness Integumentary/Breast Denies: rash or new lesions Neurological Denies: headache(s), dizziness or confusion Endocrine Reports: fatigue; Denies: excessive sweating Hematologic/Lymphatic Denies: easy bruising or easy bleeding Allerg (more content not included)... Normal [facility] MR/BPon 07-31-2024 MR/[place]UD[place]. [place] [address] [facility], [address] [place] [address] OFFICE VISIT Date of Service: 07/31/24 MR#: [id number] Acct: [id number] Name: MARIIA DAVIDSON Rep #: [id number] : 1980 Provider: Dr. Kurtis Higuera se, DO Age/Sex: 43/F Location: [facility].BP Status: Signed Intake Vital Signs 07/18/24 06:48 07/31/24 06:48 Height 5 ft 9 in 5 ft 9 in BP 109/74 110/72 Blood Pressure Location Lt brachial Lt brachial Position Sitting Sitting Respiration 16 16 Pulse 79 70 Pulse Source Monitor Monitor BP Intake Visit Reasons: 2 W FU Accompanied by: Self Allergies No Known Allergies Allergy (Verified 07/31/24 06:50) Medications ???Medication ???Instructions ???Recorded ???Confirmed ???Type potassium chloride 20 mEq 20 meq PO BID supplement 12/13/21 07/31/24 History tablet,extended release levothyroxine 25 mcg tablet 50 mcg PO DAILY thyroid 07/06/22 0 07/31/24 History colestipol 1 gram tablet 2 g (2 x 1 gram) PO BID . #60 tabs 12/22/22 07/31/24 Rx ondansetron 4 mg disintegrating 4 mg PO Q8H PRN PRN Nausea #10 tab s 05/14/23 07/31/24 Rx tablet sertraline 100 mg tablet 200 mg (2 x 100 mg) PO QHS #60 11/0307/31/24 Rx TABLETS lurasidone 120 mg tablet See Rx Instructions .Route 5 07/31/24 Rx .COMPLEX #30 tabs rsbhouzn-djkguevj-leo n 45 mg-folic cap PO 07/11/24 07/31/24 History acid 800 mcg-vit K 120 mcg capsule (Bariatric Multivitamins) tirzepatide 2.5 mg/0.5 mL 2.5 mg subcut QWEEK 07/11/2407/31 History subcutaneous pen injector (Mounjaro) clonazepam 1 mg tablet 1 mg PO BID PRN anxiety #60 tabs 0 07/18/24 07/31/24 Rx gabapentin 300 mg capsule 300 mg PO BID 30 days #60 caps 11/0407/31/24 Rx lamotrigine 25 mg tablet 25 mg PO .COMPLEX 28 days #42 tabs 07/31/24 07/31/24 Rx PFSH Medical History Leg cramps PONV (postoperative nausea and vomiting) CRVO (central retinal vein occlusion) Right ureteral calculus Anxiety Bipolar 2 disorder Thyroid disease Diabetes Anemia Fatty liver Migraine headache Chronic diarrhea Non-smoker Decreased circulation Insomnia Bipolar 1 disorder Diarrhea Alcoholic hepatitis Breast lump Alcohol abuse Hypertension Surgical History (Updated 04/17/24 @ 07:39 by Susana Marshall) H/O gastric sleeve Hx of cystoscopy Hx laparoscopic cholecystectomy Hx of colonoscopy Hx of tonsillectomy delivery delivered Family History Father Heart disease Mother Cancer lung- smoker Social History (Updated 04/17/24 @ 07:39 by Susana Marshall) Smoking Status: Never smoker alcohol intake: former details: social substance use type: does not use caffeine: Yes what type of physical activity do you participate in: none seatbelt use: always do you feel safe at home: Yes additional social history: [employer] Patient works at [employer] History of Present Illness History provided by: patient HPI: Mariia Davidson is a 43 year old female who presents today for follow up evaluation. Recently went to son's hockey tournament in [place] which was nice to get away for the weekend. [place] that it was awkward being social with others. Has been very irritable over what she reports as being little things. Is set to start IOP on Tuesday. Patient reports that her sleep remains somewhat disjointed. Frequently awakens early, but doesn't feel tired in the morning. Does feel tired at bedtime. Appetite has remained somewhat reduced. Has been following with Blossom Rodriguez regularly.Denies SI/HI or AVH. Review of Systems Constitutional Reports: change in weight (loss, but fairly stable at this time) and fatigue; Denies: fever(s) or chills Eyes Denies: change in vision or blurry vision Ears, Nose, Mouth, Throat Denies: throat pain, neck pain or change in hearing Cardiovascular Denies: chest pain, palpitations or dyspnea Respiratory Denies: dyspnea, cough or wheezing Gastrointestinal Denies: abdominal pain, nausea, vomiting, diarrhea or constipation Genitourinary Denies: dysuria or urinary frequency Musculoskeletal Denies: neck pain, joint pain or muscle weakness Integumentary/Breast Denies: rash or new lesions Neurological Denies: headache(s), dizziness or confusion Endocrine Reports: fatigue; Denies: excessive sweating Hematologic/Lymphatic Denies: easy bruising or easy bleeding Allergic/Immunologic Denies: wheezing Exam Mental Status Exam - Psych Appearance adequately groomed Attitude cooperative Activity/Motor Behavior MSE activity/motor behavior finding no adventitious movements Speech regular rate, regular volume and regular prosody Mood depressed Affect constricted (more content not included)... Normal [facility] MR/BMS.BPon 07-18-2024 MR/BMS.BP [facility] [facility], [address] [place] [id number] OFFICE VISIT Date of Service: 07/18/24 MR#: [id number] Acct: [id number] Name: MARIIA DAVIDSON Rep #: [id number] : 1980 Provider: Dr. Kurtis Higuera se, DO Age/Sex: 43/F Location: [facility].BP Status: Signed Intake Vital Signs 04/17/24 07:32 07/11/24 07:14 07/18/24 06:48 Height 5 ft 9 in 5 ft 9 in 5 ft 9 in BP 121/85 H 109/74 Blood Pressure Location Rt brachial Lt brachial Position Sitting Sitting Respiration 16 Pulse 94 79 Pulse Source Monitor Monitor BP Intake Visit Reasons: 3 M FU Accompanied by: Self Allergies No Known Allergies Allergy (Verified 07/18/24 06:49) Medications ???Medication ???Instructions ???Recorded ???Confirmed ???Type potassium chloride 20 mEq 20 meq PO BID supplement 12/13/21 07/18/24 History tablet,extended release levothyroxine 25 mcg tablet 50 mcg PO DAILY thyroid 07/06/22 0 07/18/24 History colestipol 1 gram tablet 2 g (2 x 1 gram) PO BID . #60 tabs 12/22/22 07/18/24 Rx ondansetron 4 mg disintegrating 4 mg PO Q8H PRN PRN Nausea #10 tab s 05/14/23 07/18/24 Rx tablet sertraline 100 mg tablet 200 mg (2 x 100 mg) PO QHS #60 11/0307/18/24 Rx TABLETS divalproex 500 mg tablet,delayed 1,000 mg (2 x 500 mg) PO QHS 30 07/18/24 Rx release (Depakote) days #60 tabs lurasidone 120 mg tablet See Rx Instructions .Route 5 07/18/24 Rx .COMPLEX #30 tabs tzgmvqnj-lmsjgdry-kat n 45 mg-folic cap PO 07/11/24 07/18/24 History acid 800 mcg-vit K 120 mcg capsule (Bariatric Multivitamins) tirzepatide 2.5 mg/0.5 mL 2.5 mg subcut QWEEK 07/11/2407/18 History subcutaneous pen injector (Mounjaro) clonazepam 1 mg tablet 1 mg PO BID PRN anxiety #60 tabs 0 07/18/24 07/18/24 Rx gabapentin 300 mg capsule 300 mg PO BID 30 days #60 caps 11/0407/18/24 Rx PFSH Medical History Leg cramps PONV (postoperative nausea and vomiting) CRVO (central retinal vein occlusion) Right ureteral calculus Anxiety Bipolar 2 disorder Thyroid disease Diabetes Anemia Fatty liver Migraine headache Chronic diarrhea Non-smoker Decreased circulation Insomnia Bipolar 1 disorder Diarrhea Alcoholic hepatitis Breast lump Alcohol abuse Hypertension Surgical History (Updated 04/17/24 @ 07:39 by Susana Marshall) H/O gastric sleeve Hx of cystoscopy Hx laparoscopic cholecystectomy Hx of colonoscopy Hx of tonsillectomy delivery delivered Family History Father Heart disease Mother Cancer lung- smoker Social History (Updated 04/17/24 @ 07:39 by Susana Marshall) Smoking Status: Never smoker alcohol intake: former details: social substance use type: does not use caffeine: Yes what type of physical activity do you participate in: none seatbelt use: always do you feel safe at home: Yes additional social history: [employer] Patient works at [employer] H[employer] History of Present Illness History provided by: patient HPI: Mariia Davidson is a 43 year old female who presents today for follow up evaluation. Has been trying to eat more regularly over the last few days, and gained 3 lbs so felt that she couldn't continue doing this. Has been sleeping fair, going to bed last night at 8 pm and up around 4 am. Had saved nearly $2k for a trip to [place] and a hockey tournament and spent it all on clothes and things on [employer]. Has had some relief with not feeling like she has to worry about going to work. Denies any significant physical symptoms at this time. Did add some additional calories with her latuda as she wanted to improve absorption. Has been following with Blossom Rodriguez regularly. Review of Systems Constitutional Reports: fatigue; Denies: fever(s), chills or change in weight Eyes Denies: change in vision or blurry vision Ears, Nose, Mouth, Throat Denies: throat pain, neck pain or change in hearing Cardiovascular Denies: chest pain, palpitations or dyspnea Respiratory Denies: dyspnea, cough or wheezing Gastrointestinal Denies: abdominal pain, nausea, vomiting, diarrhea or constipation Genitourinary Denies: dysuria or urinary frequency Musculoskeletal Denies: neck pain, joint pain or muscle weakness Integumentary/Breast Denies: rash or new lesions Neurological Denies: headache(s), dizziness or confusion Endocrine Reports: fatigue; Denies: excessive sweating Hematologic/Lymphatic Denies: easy bruising or easy bleeding Allergic/Immunologic Denies: wheezing Exam Mental Status Exam - Psych Appearance casually dressed Attitude guarded (Much different than normal attitude) Activity/Motor Behavior MSE activity/motor behavi (more content not included)... Normal [facility] MR/BMS.BPon 07-11-2024 MR/BMS.BP [facility] [address] [place] [address], [address] [place] [address] OFFICE VISIT Date of Service: 07/11/24 MR#: [id number] Acct: [id number] Name: MARIIA DAVIDSON Rep #: [id number] : 1980 Provider: Dr. Kurtis Higuera se, DO Age/Sex: 43/F Location: [facility].BP Status: Signed Intake Vital Signs 04/17/24 07:32 07/11/24 07:14 Height 5 ft 9 in 5 ft 9 in Weight: 195 lb BMI 28.8 BP 121/85 H 135/76 H Blood Pressure Location Rt brachial Lt brachial Position Sitting Sitting Respiration 16 Pulse 94 105 H Pulse Source Monitor Monitor BP Intake Visit Reasons: Follow up Accompanied by: Self Allergies No Known Allergies Allergy (Verified 07/11/24 07:16) Medications ???Medication ???Instructions ???Recorded ???Confirmed ???Type potassium chloride 20 mEq 20 meq PO BID supplement 12/13/21 07/11/24 History tablet,extended release levothyroxine 25 mcg tablet 50 mcg PO DAILY thyroid 07/06/22 07/11/24 History colestipol 1 gram tablet 2 g (2 x 1 gram) PO BID . #60 tabs 12/22/22 07/11/24 Rx ondansetron 4 mg disintegrating 4 mg PO Q8H PRN PRN Nausea #10 tabs 05/14/23 07/11/24 Rx tablet sertraline 100 mg tablet 200 mg (2 x 100 mg) PO QHS #60 04/17/24 07/11/24 Rx TABLETS clonazepam 1 mg tablet 1 mg PO BID PRN anxiety #60 tabs 05/25/24 07/11/24 Rx gabapentin 300 mg capsule 300 mg PO BID 30 days #60 caps 05/25/24 07/11/24 Rx divalproex 500 mg tablet,delayed 1,000 mg (2 x 500 mg) PO QHS 30 06/18/24 07/11/24 Rx release (Depakote) days #60 tabs lurasidone 120 mg tablet See Rx Instructions .Route 07/09/24 07/11/24 Rx .COMPLEX #30 tabs aqoxbgyl-jvgwpcpb-daz n 45 mg-folic cap PO 07/11/24 07/11/24 History acid 800 mcg-vit K 120 mcg capsule (Bariatric Multivitamins) tirzepatide 2.5 mg/0.5 mL 2.5 mg subcut QWEEK 07/11/24 07/11/24 History subcutaneous pen injector (Violetta) [facility] Medical History Leg cramps PONV (postoperative nausea and vomiting) CRVO (central retinal vein occlusion) Right ureteral calculus Anxiety Bipolar 2 disorder Thyroid disease Diabetes Anemia Fatty liver Migraine headache Chronic diarrhea Non-smoker Decreased circulation Insomnia Bipolar 1 disorder Diarrhea Alcoholic hepatitis Breast lump Alcohol abuse Hypertension Surgical History (Updated 04/17/24 @ 07:39 by Susana Marshall) H/O gastric sleeve Hx of cystoscopy Hx laparoscopic cholecystectomy Hx of colonoscopy Hx of tonsillectomy delivery delivered Family History Father Heart disease Mother Cancer lung- smoker Social History (Updated 04/17/24 @ 07:39 by Susana Marshall) Smoking Status: Never smoker alcohol intake: former details: social substance use type: does not use caffeine: Yes what type of physical activity do you participate in: none seatbelt use: always do you feel safe at home: Yes additional social history: [employer] Patient works at [employer] History of Present Illness History provided by: patient HPI: Mariia Davidson is a 43 year old female who presents today for follow up evaluation. Patient reports that she feels like she is crawling outside of my skin. Reports that she feels like she has been having really big emotional reactions. Admits to having yelled at her Tuesday for what she cannot even recount a reason. Feels like work has been particularly hard and has not found any of her job enjoyable. Has lost nearly 35 more lbs since last appointment, putting her 75 lbs down overall. Does feel like she is not eating well. Recounts that she has been eating about 350 calories per day. Feels like she is not taking care of herself physically or mentally. Feels like she is not even drinking enough water. Admits to recently having passed out after changing her shirt. Has been taking depakote on and off. She just restarted taking regularly about 2 weeks ago. Generally starts waking up around 3 am and rolls around until 5 am. Only getting about 5 hours of sleep at night. Does feel the best in the mornings. Using marijuana gummies on occasion. Has been following with Blossom Rodriguez regularly. Review of Systems Constitutional Reports: fatigue; Denies: fever(s), chills or change in weight Eyes Denies: change in vision or blurry vision Ears, Nose, Mouth, Throat Denies: throat pain, neck pain or change in hearing Cardiovascular Denies: chest pain, palpitations or dyspnea Respiratory Denies: dyspnea, cough or wheezing Gastrointestinal Denies: abdominal pain, nausea, vomiting, diarrhea or constipation Genitourinary Denies: dysuria or urinary frequency Musculoskeletal Denies: neck pain, joint pain or muscle weakness Integumentary/Breast Denies: (more content not included)... [facility] (AGGENS4) MARIIA DAVIDSON ([id number]) 1980 F Date Time Provider Department 06/19/24 TEJAL VALDES AGGENS4 During your visit today, we recorded the following information about you: Tejal Valdes APRN.TSO 06/19/2024 9:11 AM Signed Called patient to review lab work. Discussed low platelets (137). She has noticed mild increased bruising recently. She will reach out to her primary care provider Dr. Gonzalez today. Labs will be sent to him as well. Discussed kidney function is stable and all other labs are within a normal range. We are waiting on thiamine to result and will reach out if abnormal. We have a 3 month follow up appointment 06/22. 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 - topiramate (TOPAMAX) 100 mg tablet Take 150 mg by mouth once daily. - tirzepatide (MOUNJARO) 2.5 mg/0.5 mL pen injector Inject 2.5 mg subcutaneously one time a week. - ondansetron (ZOFRAN) 4 mg tablet Take 1 tablet by mouth every 8 hours as needed for nausea/vomiting (for nausea.). - biotin 1 mg cap Take by mouth once daily. - vitamin b complex capsule Take 1 capsule by mouth once daily. - pantoprazole DR (PROTONIX) 40 mg tablet Take 1 tablet by mouth once daily. TO START AFTER SURGERY. Take every day for 6 months after surgery. - fenofibrate nanocrystallized (TRICOR) 145 mg tablet Take 145 mg by mouth once daily. - gabapentin (NEURONTIN) 300 mg capsule Take 300 mg by mouth two times a day. - colestipol (COLESTID) 1 gram tablet Take 2 g by mouth daily at bedtime. - clonazePAM (KLONOPIN) 1 mg tablet Take 1 mg by mouth two times a day as needed for anxiety. - amLODIPine (NORVASC) 5 mg tablet Take 5 mg by mouth once daily. - metFORMIN ER (FORTAMET) 500 mg 24 hr tablet Take 1,000 mg by mouth daily with breakfast. - lurasidone (LATUDA) 120 mg tablet Take by mouth once daily. - POTASSIUM CITRATE ORAL Take 15 mEq by mouth once daily. - sertraline (ZOLOFT) 100 mg tablet Take 200 mg by mouth once daily. - telmisartan (MICARDIS) 40 mg tablet Take 40 mg by mouth once daily. - levothyroxine 50 mcg cap Take 50 mcg by mouth daily before breakfast. 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] 05/28/2016 Secondary oligomenorrhea [N91.4] 05/28/2016 Class 2 obesity with body mass index (BMI) of 3*10/30/2021 Hypothyroidism [E03.9] 12/06/2023 HTN (hypertension) [I10] 12/06/2023 Nephrolithiasis [N20.0] 12/06/2023 Non-alcoholic fatty liver disease [K76.0] 12/06/2023 Pre-diabetes [R73.03] 12/06/2023 Central vein occlusion of retina [H34.8192] 12/06/2023 Body mass index 37.0-37.9, adult [Z68.37] 03/12/2024 HLD (hyperlipidemia) [E78.5] 03/12/2024 Medical marijuana use [Z79.899] 03/12/2024 Pre-op examination [Z01.818] 03/12/2024 Hypokalemia due to excessive gastrointestinal l*03/13/2024 Obesity, Class II, BMI 35-39.9 [E66.812] 03/19/2024 Encounter Status:Closed by TEJAL VALDES on 06/19/24 Normal [facility] 25(OH)D3 SerPl-mCncon 2024 25-hydroxyvitamin D3 [Mass/Vol] 47.9 ng/mL Normal 31.0-80.0 [facility] Comment on above: Order Comment: Specclarence gan Type: BLOOD SPECIMEN Ordering Facility: [facility] Address: [address] [place] [address] Result Comment: Clas sification of 25 [place] Vitamin D status: Deficiency/Insufficiency: < or = 30 ng/ml. Sufficiency/Optimal Levels: 31-80 ng/mL Toxicity: > 100 ng/mL. Test performed by chemiluminescent immunoassay. Performed By: #### 2 4321-2 #### [facility] CLIA [id number] [address] [place] [address] [place] Basic metabolic 2000 panelon 06-15-2024 Anion gap [Moles/Vol] 12 mmol/L Normal 8-15 [facility] Comment on above: Order Comment: Speci men Type: BLOOD SPECIMENOrdering Facility: [facility] Address: [address] [place] [address] Performed By: #### 2 4321-2 ####[facility] [id number] [place] [address] [place] Calcium [Mass/Vol] 9.7 mg/dL Normal 8.5-10.2 [facility] Comment on above: Order Comment: Speci [facility] Type: BLOOD SPECIMENOrdering Facility: [facility] Address: [address] [place] [address] Performed By: #### 2 4321-2 ####[facility] MILLWNCLIA [id number] [place] [address] [place] Chloride [Moles/Vol] 108 mmol/L High 98-107 [facility] Comment on above: Order Comment: Speci men Type: BLOOD SPECIMENOrdering Facility: [facility] Address: [address] [place] [address] Performed By: #### 2 4321-2 ####[facility]ENTERLIA [id number] [place] [address] [place] CO2 [Moles/Vol] 19 mmol/L Low 22-30 [facility] Comment on above: Order Comment: Speci men Type: BLOOD SPECIMENOrdering Facility: [facility] Address: [address] [place] [address] Performed By: #### 2 4321-2 ####[facility] [id number] [place] [address] [place] Creatinine [Mass/Vol] 1.31 mg/dL High 0.58-0.96 [facility] Comment on above: Order Comment: Speci men Type: BLOOD SPECIMENOrdering Facility: [facility] Address: [address] [place] [address] Performed By: #### 2 4321-2 ####[facility]LIA [id number] [place] [address] [place] [facility] Creatinine and Glomerular filtration rate.predicted panel (S/P/Bld) 52 mL/min/1.73m??? Low >=60 [facility] Comment on above: Order Comment: Speci men Type: BLOOD SPECIMENOrdering Facility: [facility] Address: [address] [place] [address] Result Comment: Ann mated Glomerular Filtration Rate (eGFR) is calculated using the 2020 CKD-EPI creatinine equation. This equation utilizes serum creatinine, sex, and age as parameters. The creatinine assay has traceable calibration to isotope dilution-mass spectrometry. Refer to KDIGO guidelines for clinical interpretation. In patients with unstable renal function, e.g. those with acute kidney injury, the eGFR may not accurately reflect actual GFR. Performed By: #### 2 4321-2 ####[facility]PITALWGUERITALIA [id number] [place] [address] [place] Glucose [Mass/Vol] 88 mg/dL Normal 74-99 [facility] Comment on above: Order Comment: Speci men Type: BLOOD SPECIMENOrdering Facility: [facility] Address: [address] [id number] Result Comment: The [place] Diabetes Association (ADA) provides guidance for cutoff values for fasting glucose and random glucose. The ADA defines fasting as no caloric intake for at least 8 hours. Fasting plasma glucose results between 100 to 125 mg/dL indicate increased risk for diabetes (prediabetes). Fasting plasma glucose results greater than or equal to 126 mg/dL meet the criteria for diagnosis of diabetes. In the absence of unequivocal hyperglycemia, results should be confirmed by repeat testing. In a patient with classic symptoms of hyperglycemia or hyperglycemic crisis, random plasma glucose results greater than or equal to 200 mg/dL meet the criteria for diagnosis of diabetes. Reference: Standards of Medical Care in Diabetes 2016, [place] Diabetes Association. Diabetes Care. 2016.39(Suppl 1). Performed By: #### 2 4321-2 ####[facility] [place] [id number] [place] [address] [place] Potassium [Moles/Vol] 4.1 mmol/L Normal 3.7-5.1 [facility] Comment on above: Order Comment: Speci men Type: BLOOD SPECIMENOrdering Facility: [facility] Address: [address] [place] [address] Performed By: #### 2 4321-2 ####[facility]ITALWNCLIA [id number] [place] [address] [place] Sodium [Moles/Vol] 139 mmol/L Normal 136-144 [facility] Comment on above: Order Comment: Speci men Type: BLOOD SPECIMENOrdering Facility: [facility] Address: [address] [place] [address] Performed By: #### 2 4321-2 ####[facility] [id number] [place] [address] [place] Urea nitrogen [Mass/Vol] 23 mg/dL High 7-21 [facility] Comment on above: Order Comment: Speci men Type: BLOOD SPECIMENOrdering Facility: [facility] Address: [address] [place] [address] Performed By: #### 2 4321-2 ####[facility] NAPLESNCA [id number] [place] [address] [place] CBC panel Auto (Bld)on 06-15 Erythrocyte distribution width (RBC) [Ratio] 14.5 % Normal 11.5-15.0 [facility] Comment on above: Order Comment: Speci men Type: BLOOD SPECIMEN Ordering Facility: [facility] Address: [address] [place] [address] Performed By: #### B 1WB #### [facility] CLIA [id number] [address] [place] [address] [place] Hematocrit (Bld) [Volume fraction] 38.8 % Normal 36.0-46.0 [facility] Comment on above: Order Comment: Speci men Type: BLOOD SPECIMEN Ordering Facility: [facility] Address: [address] [place] [address] Performed By: #### B 1WB #### [facility] CLIA [id number] [address] [place] [address] [place] Hemoglobin (Bld) [Mass/Vol] 13.1 g/dL Normal 11.5-15.5 [facility] Comment on above: Order Comment: Speci men Type: BLOOD SPECIMEN Ordering Facility: [facility] Address: [address] [place] [address] Performed By: #### B 1WB #### [facility] CLIA [id number] [address] [place] [address] [place] MCH (RBC) [Entitic mass] 28.5 pg Normal 26.0-34.0 [facility] Comment on above: Order Comment: Speci men Type: BLOOD SPECIMEN Ordering Facility: [facility] Address: [address] [place] [address] Performed By: #### B 1WB #### [facility] CLIA [id number] [address] [place] [address] [place] MCHC (RBC) [Mass/Vol] 33.8 g/dL Normal 30.5-36.0 [facility] Comment on above: Order Comment: Speci men Type: BLOOD SPECIMEN Ordering Facility: [facility] Address: [address] [place] [address] Performed By: #### B 1WB #### [facility] CLIA [id number] [address] [place] [address] [place] MCV (RBC) [Entitic vol] 84.5 fL Normal 80.0-100.0 [facility] Comment on above: Order Comment: Speci men Type: BLOOD SPECIMEN Ordering Facility: [facility] Address: [address] [place] [address] Performed By: #### B 1WB #### [facility] CLIA [id number] [address] [place] [address] [place] Nucleated RBC (Bld) [#/Vol] 10*3/uL Normal <0.01 [facility] Comment on above: Order Comment: Speci men Type: BLOOD SPECIMEN Ordering Facility: [facility] Address: [address] [place] [address] Performed By: #### B 1WB #### [facility] CLIA [id number] [address] [place] [address] [place] Platelet mean volume (Bld) [Entitic vol] 9.4 fL Normal 9.0-12.7 [facility] Comment on above: Order Comment: Speci men Type: BLOOD SPECIMEN Ordering Facility: [facility] Address: [address] [place] [address] Performed By: #### B 1WB #### [facility] CLIA [id number] [address] [place] [address] [place] Platelets (Bld) [#/Vol] 137 10*3/uL Low 150-400 [facility] Comment on above: Order Comment: Speci men Type: BLOOD SPECIMEN Ordering Facility: [facility] Address: [address] [place] [address] Performed By: #### B 1WB #### [facility] CLIA [id number] [address] [place] [address] [place] RBC (Bld) [#/Vol] 4.59 10*6/uL Normal 3.90-5.20 [facility] Comment on above: Order Comment: Speci men Type: BLOOD SPECIMEN Ordering Facility: [facility] Address: [address] [place] [address] Performed By: #### B 1WB #### [facility] CLIA [id number] [address] [place] [address] [place] WBC (Bld) [#/Vol] 3.32 10*3/uL Low 3.70-11.00 [facility] Comment on above: Order Comment: Speci men Type: BLOOD SPECIMEN Ordering Facility: [facility] Address: [address] [place] [address] Performed By: #### B 1WB #### [facility] CLIA [id number] [address] [place] [address] [place] Ferritin SerPl-mCncon 2024 Ferritin [Mass/Vol] 173.0 ng/mL Normal 14.7-205.1 [facility] Comment on above: Order Comment: Speci men Type: BLOOD SPECIMEN Ordering Facility: [facility] Address: [address] [place] [address] Performed By: #### 2 4321-2 #### [facility] CLIA [id number] [address] [place] [address] [place] [facility] 06-15-19 25 Folate [Mass/Vol] ng/mL Normal >4.7 [facility] Comment on above: Order Comment: Speci men Type: BLOOD SPECIMENOrdering Facility: [facility] Address: [address] [place] [address] Result Comment: A re sult of > 20 ng/mL is not necessarily indicative of a pathologic or treatable condition: it reflects a limitation of the test methodology. Assay reference range: 4.8 to 24.2 ng/mL. Suitable for detection of folate deficiency. Reference: Folate III (Folate III) [package insert V 1.0 [place]]. [facility], [place], [place]: April 2015. Performed By: #### 2 132-9, 2284-8 ####[facility] LABCLIA [id number] [place] [address] [place] HbA1c (Bld)on 06-15-2024 Average glucose Estimated from glycated hemoglobin (Bld) [Mass/Vol] 80 mg/dL Normal [facility] Comment on above: Order Comment: Leisai men Type: BLOOD SPECIMEN Ordering Facility: [facility] Address: [address] [place] [address] Result Comment: eAG: (Estimated average glucose) is a calculated value from HgbA1c and is public health representative of the average blood glucose level in the last 2-3 month period. Performed By: #### B 1WB #### [facility] CLIA [id number] [address] [place] [address] [place] HbA1c (Bld) [Mass fraction] 4.4 % Normal 4.3-5.6 [facility] Comment on above: Order Comment: Speci men Type: BLOOD SPECIMEN Ordering Facility: [facility] Address: [address] [place] [address] Result Comment: [place] Diabetes Association guidelines indicate that patients with HgbA1c in the range 5.7-6.4% are at increased risk for development of diabetes, and intervention by lifestyle modification may be beneficial. HgbA1c greater or equal to 6.5% is considered diagnostic of diabetes. Performed By: #### B 1WB #### [facility] CLIA [id number] [address] [place] [address] [id number] [place] [address] [place] Iron and Iron binding capaci ty panelon 06-15-2024 Iron [Mass/Vol] 74 ug/dL Normal 41-186 [facility] Comment on above: Order Comment: Leisai men Type: BLOOD SPECIMEN Ordering Facility: [facility] Address: [address] [place] [address] Performed By: #### 2 4321-2 #### [facility] CLIA [id number] [address] [place] [address] [place] Iron binding capacity [Mass/Vol] 450 ug/dL High 232-386 [facility] Comment on above: Order Comment: Speci men Type: BLOOD SPECIMEN Ordering Facility: [facility] Address: [address] [place] [address] Performed By: #### 2 4321-2 #### [facility] CLIA [id number] [address] [place] [address] [place] Iron/TIBC [Molar ratio] 16.4 % Normal 15.0-57.0 [facility] Comment on above: Order Comment: Speci men Type: BLOOD SPECIMEN Ordering Facility: [facility] Address: [address] [place] [address] Performed By: #### 2 4321-2 #### [facility] CLIA [id number] [address] [place] [address] [place] TSH SerPl-aCncon 06-15-2024 TSH Qn 1.470 m[IU]/L Normal 0.270-4.200 [facility] Comment on above: Order Comment: Mike gan Type: BLOOD SPECIMEN Ordering Facility: [facility] Address: [address] [place] [address] Result Comment: If t he patient is , TSH reference range varies by gestational period: First Trimester (weeks 9-12): 0.180-2.990 mIU/L Second Trimester: 0.110-3.980 mIU/L Third Trimester: 0.480-4.710 mIU/L Rob Freeman et al. A Practical Approach for the Verifications and Determination of Site- and Trimester-Specific Reference Intervals for Thyroid Function tests in . Thyroid, 2019:29:3:412-420. Jai Becker, et al. 2017 Guidelines of the [place] Thyroid Association for the Diagnosis and Management of Thyroid Disease during and the . Thyroid, 2017:27:3:315-389. Performed By: #### 2 4321-2 #### [facility] CLIA [id number] [address] [place] [address] [place] [facility] VITAMIN B1 (THIAMINE), WHOLE BLOODon 06-15-2024 Thiamine (Bld) [Moles/Vol] 398.6 nmol/L High 84.3-213.3 [facility] Comment on above: Order Comment: Mike gan Type: BLOOD SPECIMEN Ordering Facility: [facility] Address: [address] [place] [address] Result Comment: This assay measures the concentration of thiamine diphosphate (TDP), the primary active form of vitamin B1. Approximately 90 percent of vitamin B1 present in whole blood is TDP. Thiamine and thiamine monophosphate, which comprise the remaining 10 percent, are not measured. This test was developed, and its performance characteristics determined by the [facility] Department of Pathology and Laboratory Medicine. It has not been cleared or approved by the FDA. The [facility] Department of Pathology and Laboratory Medicine is regulated under CLIA as qualified to perform high-complexity testing. This test is used for clinical purposes. It should not be regarded as investigational or for research. Performed By: #### B 1WB #### [facility] CLIA [id number] [address] [facility] [place] [id number] [place] Vit B12 SerPl-ncon 025 Cobalamin (Vitamin B12) [Mass/Vol] 1111 pg/mL Normal 232-1245 [facility] Comment on above: Order Comment: Speci men Type: BLOOD SPECIMENOrdering Facility: [facility] Address: [address] [place] [address] Performed By: #### 2 132-9, 2284-8 ####[facility] LABCLIA [id number] [facility] [address] [place] CNPIda 05-28-2024 CNPN Telephone (AGGENS4) MARIIA DAVIDSON ([id number]) 1980 F Date Time Provider Department 05/28/24 CLAUDIA GUILLAUME AGGENS4 During your visit today, we recorded the following information about you: Mónica Jain 05/28/2024 8:22 AM Signed Left pt a VM to schedule visit per notes from todays visit with Claudia: Return in about 22 days (around 06/19/2024). Check out comments: Plan: follow up with RD/ACCOUNTING PROFESSIONAL at 3 months post-op Allergies As of Date: 05/28/2024 (No Known Allergies) Date Reviewed: 03/29/2024 Reviewed by: Abigail Mcdermott MD - Fully Assessed Reason for Visit: Appointment [186] Prescriptions as of 05/28/2024 - divalproex DR (DEPAKOTE) 500 mg EC tablet Take 1,000 mg by mouth daily at bedtime. - topiramate (TOPAMAX) 100 mg tablet Take 150 mg by mouth once daily. - tirzepatide (MOUNJARO) 2.5 mg/0.5 mL pen injector Inject 2.5 mg subcutaneously one time a week. - ondansetron (ZOFRAN) 4 mg tablet Take 1 tablet by mouth every 8 hours as needed for nausea/vomiting (for nausea.). - biotin 1 mg cap Take by mouth once daily. - vitamin b complex capsule Take 1 capsule by mouth once daily. - pantoprazole DR (PROTONIX) 40 mg tablet Take 1 tablet by mouth once daily. TO START AFTER SURGERY. Take every day for 6 months after surgery. - fenofibrate nanocrystallized (TRICOR) 145 mg tablet Take 145 mg by mouth once daily. - gabapentin (NEURONTIN) 300 mg capsule Take 300 mg by mouth two times a day. - colestipol (COLESTID) 1 gram tablet Take 2 g by mouth daily at bedtime. - clonazePAM (KLONOPIN) 1 mg tablet Take 1 mg by mouth two times a day as needed for anxiety. - amLODIPine (NORVASC) 5 mg tablet Take 5 mg by mouth once daily. - metFORMIN ER (FORTAMET) 500 mg 24 hr tablet Take 1,000 mg by mouth daily with breakfast. - lurasidone (LATUDA) 120 mg tablet Take by mouth once daily. - POTASSIUM CITRATE ORAL Take 15 mEq by mouth once daily. - sertraline (ZOLOFT) 100 mg tablet Take 200 mg by mouth once daily. - telmisartan (MICARDIS) 40 mg tablet Take 40 mg by mouth once daily. - levothyroxine 50 mcg cap Take 50 mcg by mouth daily before breakfast. 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 CBC W/Diff, Automatedon - Absolute Lymph 1.61 X10 3/uL Normal 0.83-4.51 [facility] Comment on above: Order Comment: Order Date: 05/22/24Order Info: 0184-1 - CBCD Performed By: #### L 100.0100, L501.7300, L500.4050 ####[facility] [address] [place], [address] Absolute Neut 2.8 X10 3/uL Normal 2.0-7.7 [facility] Comment on above: Order Comment: Order Date: 05/22/24Order Info: 0184-1 - CBCD Performed By: #### L 100.0100, L501.7300, L500.4050 ####[facility] [address] [place], [address] Basophils/100 WBC (Bld) 0.4 % Normal 0-1 [facility] Comment on above: Order Comment: Order Date: 05/22/24Order Info: 0184-1 - CBCD Performed By: #### L 100.0100, L501.7300, L500.4050 ####[facility] [address] [place], [address] Eosinophils/100 WBC (Bld) 0.8 % Normal 0-5 [facility] Comment on above: Order Comment: Order Date: 05/22/24Order Info: 018- - CBCD Performed By: #### L 100.0100, L501.7300, L500.4050 ####[facility] [address] [place], [address] Erythrocyte distribution width (RBC) [Ratio] 14.2 % Normal 11.6-14.6 [facility] Comment on above: Order Comment: Order Date: 05/22/24Order Info: 018- - CBCD Performed By: #### L 100.0100, L501.7300, L500.4050 ####[facility] [address] [place], [address] Hematocrit (Bld) [Volume fraction] 41.0 % Normal 37-47 [facility] Comment on above: Order Comment: Order Date: 05/22/24Order Info: 018- - CBCD Performed By: #### L 100.0100, L501.7300, L500.4050 ####[facility] [address] [place], [address] Hemoglobin (Bld) [Mass/Vol] 13.4 g/dL Normal 12.0-15.0 [facility] Comment on above: Order Comment: Order Date: 05/22/24Order Info: 018- - CBCD Performed By: #### L 100.0100, L501.7300, L500.4050 ####[facility] [address] [place], [address] IG% 0.200 Normal 0.0-0.9 [facility] Comment on above: Order Comment: Order Date: 05/22/24Order Info: 018- - CBCD Result Comment: IG% - Immature Granulocytes (promyelocytes, myelocytes and metamyelocytes) > 1% indicates that a LEFT SHIFT is Present. Performed By: #### L 100.0100, L501.7300, L500.4050 ####[facility] [address] [place], [address] Lymphocytes/100 WBC (Bld) 33.4 % Normal 19-41 [facility] Comment on above: Order Comment: Order Date: 05/22/24Order Info: 183-1 - CBCD Performed By: #### L 100.0100, L501.7300, L500.4050 ####[facility] [address] [place], [address] MCH (RBC) [Entitic mass] 27.9 pg Normal 27.0-32.0 [facility] Comment on above: Order Comment: Order Date: 05/22/24Order Info: 183- - CBCD Performed By: #### L 100.0100, L501.7300, L500.4050 ####[facility] [address] [place], [address] MCHC (RBC) [Mass/Vol] 32.7 g/dL Normal 32-36 [facility] Comment on above: Order Comment: Order Date: 05/22/24Order Info: 183- - CBCD Performed By: #### L 100.0100, L501.7300, L500.4050 ####[facility] [address] [place], [address] MCV (RBC) [Entitic vol] 85.4 fL Normal 81-99 [facility] Comment on above: Order Comment: Order Date: 05/22/24Order Info: 183- - CBCD Performed By: #### L 100.0100, L501.7300, L500.4050 ####[facility] [facility] [address] [place], [address] Monocytes/100 WBC (Bld) 7.3 % Normal 0-10 [facility] Comment on above: Order Comment: Order Date: 05/22/24Order Info: 4-1 - CBCD Performed By: #### L 100.0100, L501.7300, L500.4050 ####[facility] [address] [place], [address] Neutrophils/100 WBC (Bld) 57.9 % Normal 47-70 [facility] Comment on above: Order Comment: Order Date: 05/22/24Order Info: 0184-1 - CBCD Performed By: #### L 100.0100, L501.7300, L500.4050 ####[facility] [address] [place], [address] Nucleated RBC (Bld) [#/Vol] 0 10*3/uL Normal 0-5 [facility] Comment on above: Order Comment: Order Date: 05/22/24Order Info: 0184-1 - CBCD Performed By: #### L 100.0100, L501.7300, L500.4050 ####[facility] [address] [place], [address] Platelet mean volume (Bld) [Entitic vol] 10.5 fL Normal 6.2-12.0 [facility] Comment on above: Order Comment: Order Date: 05/22/24Order Info: 0184-1 - CBCD Performed By: #### L 100.0100, L501.7300, L500.4050 ####[facility] [address] [place], [address] Platelets (Bld) [#/Vol] 163 10*3/uL Normal 150-450 [facility] Comment on above: Order Comment: Order Date: 05/22/24Order Info: 0184-1 - CBCD Performed By: #### L 100.0100, L501.7300, L500.4050 ####[facility] [address] [place], [address] RBC (Bld) [#/Vol] 4.80 10*6/uL Normal 4.2-5.4 [facility] Comment on above: Order Comment: Order Date: 05/22/24Order Info: 0184-1 - CBCD Performed By: #### L 100.0100, L501.7300, L500.4050 ####[facility] [address] [place], [address] RDW SD 44.3 fl High 35.1-43.9 [facility] Comment on above: Order Comment: Order Date: 05/22/24Order Info: 0184-1 - CBCD Performed By: #### L 100.0100, L501.7300, L500.4050 ####[facility] [address] [place], [address] WBC (Bld) [#/Vol] 4.8 10*3/uL Normal 4.4-11.0 [facility] Comment on above: Order Comment: Order Date: 05/22/24Order Info: 018- - CBCD Performed By: #### L 100.0100, L501.7300, L500.4050 ####[facility] [address] [place], [address] Comprehensive Metabolic Prof [facility] 05-22-2024 Albumin [Mass/Vol] 4.4 g/dL Normal 3.2-5.0 [facility] Comment on above: Order Comment: Order Date: 05/22/24Order Info: 0786-1 - CMP Performed By: #### L 100.0100, L501.7300, L500.4050 ####[facility] [address] [place], [address] Albumin/Globulin [Mass ratio] 1.3 {ratio} Normal 0.9-2.4 [facility] Comment on above: Order Comment: Order Date: 05/22/24Order Info: 0786-1 - CMP Performed By: #### L 100.0100, L501.7300, L500.4050 ####[facility] [address] [place], [address] ALK P 59 U/L Normal 45-117 [facility] Comment on above: Order Comment: Order Date: 05/22/24Order Info: 0786-1 - CMP Performed By: #### L 100.0100, L501.7300, L500.4050 ####[facility] [address] [place], [address] ALT [Catalytic activity/Vol] 41 U/L Normal 13-56 [facility] Comment on above: Order Comment: Order Date: 05/22/24Order Info: 0786-1 - CMP Performed By: #### L 100.0100, L501.7300, L500.4050 ####[facility] [address] [place], [address] AST [Catalytic activity/Vol] 28 U/L Normal 15-37 [facility] Comment on above: Order Comment: Order Date: 05/22/24Order Info: 0786-1 - CMP Performed By: #### L 100.0100, L501.7300, L500.4050 ####[facility] [address] [place], [address] Bilirubin [Mass/Vol] 0.50 mg/dL Normal 0.20-1.00 [facility] Comment on above: Order Comment: Order Date: 05/22/24Order Info: 0786-1 - CMP Result Comment: For patients on eltrombopag therapy, use of Dimension [place] TBIL is not recommended. Performed By: #### L 100.0100, L501.7300, L500.4050 ####[facility] [address] [place], [address] BUN/CRE 10.8 RATIO Normal 10-20 [facility] Comment on above: Order Comment: Order Date: 05/22/24Order Info: 0786-1 - CMP Performed By: #### L 100.0100, L501.7300, L500.4050 ####[facility] [address] [place], [address] CA,Total 9.4 mg/dL Normal 8.5-10.1 [facility] Comment on above: Order Comment: Order Date: 05/22/24Order Info: 07-1 - CMP Performed By: #### L 100.0100, L501.7300, L500.4050 ####[facility] [address] [place], [address] Chloride [Moles/Vol] 110 mmol/L High 98-107 [facility] Comment on above: Order Comment: Order Date: 05/22/24Order Info: 07- - CMP Performed By: #### L 100.0100, L501.7300, L500.4050 ####[facility] [address] [place], [address] CO2 [Moles/Vol] 21.0 mmol/L Normal 21.0-32.0 [facility] Comment on above: Order Comment: Order Date: 05/22/24Order Info: 07- - CMP Performed By: #### L 100.0100, L501.7300, L500.4050 ####[facility] [address] [place], [address] Creatinine [Mass/Vol] 1.30 mg/dL High 0.55-1.02 [facility] Comment on above: Order Comment: Order Date: 05/22/24Order Info: 0786-1 - CMP Result Comment: The validity of the calculated GFR GFRAA in patients over 70 years has not been determined. Clinical correlation is essential. Performed By: #### L 100.0100, L501.7300, L500.4050 ####[facility] [address] [place], [address] EST GFR - AA 57 mL/min Low >60 [facility] Comment on above: Order Comment: Order Date: 05/22/24Order Info: 0786-1 - CMP Result Comment: Afri can [place] GFR Calc Performed By: #### L 100.0100, L501.7300, L500.4050 ####[facility] [address] [place], [address] GAP 8 Normal 5-15 [facility] Comment on above: Order Comment: Order Date: 05/22/24Order Info: 0786-1 - CMP Performed By: #### L 100.0100, L501.7300, L500.4050 ####[facility] [address] [place], [address] GFR/1.73 sq M.predicted among non-blacks MDRD (S/P/Bld) [Vol rate/Area] 47 mL/min/{1.73_m2} Low >60 [facility] Comment on above: Order Comment: Order Date: 05/22/24Order Info: 07-1 - CMP Result Comment: Non- GFR Calc Performed By: #### L 100.0100, L501.7300, L500.4050 ####[facility] [address] [place], [address] Globulin (S) [Mass/Vol] 3.4 g/dL Normal 2.2-4.2 [facility] Comment on above: Order Comment: Order Date: 05/22/24Order Info: 0786-1 - CMP Performed By: #### L 100.0100, L501.7300, L500.4050 ####[facility] [address] [place], [address] Glucose [Mass/Vol] 76 mg/dL Normal 74-106 [facility] Comment on above: Order Comment: Order Date: 05/22/24Order Info: 0786-1 - CMP Performed By: #### L 100.0100, L501.7300, L500.4050 ####[facility] [address] [place], [address] Potassium [Moles/Vol] 4.2 mmol/L Normal 3.5-5.1 [facility] Comment on above: Order Comment: Order Date: 05/22/24Order Info: 0786-1 - CMP Performed By: #### L 100.0100, L501.7300, L500.4050 ####[facility] [address] [place], [address] Sodium [Moles/Vol] 139 mmol/L Normal 136-145 [facility] Comment on above: Order Comment: Order Date: 05/22/24Order Info: 0786-1 - CMP Performed By: #### L 100.0100, L501.7300, L500.4050 ####[facility] [address] [place], [address] T PROT 7.8 g/dL Normal 6.4-8.2 [facility] Comment on above: Order Comment: Order Date: 05/22/24Order Info: 0786-1 - CMP Performed By: #### L 100.0100, L501.7300, L500.4050 ####[facility] [address] [place], [address] Urea nitrogen [Mass/Vol] 14 mg/dL Normal 7-18 [facility] Comment on above: Order Comment: Order Date: 05/22/24Order Info: 0786-1 - CMP Performed By: #### L 100.0100, L501.7300, L500.4050 ####[facility] [address] [place], [address] Osmolality, Serumon 05-22-20 24 OSMOLALITY,SER 294 mOsm/KG Normal 275-295 [facility] Comment on above: Order Comment: Order Date: 05/22/24Order Info: 2692-2 - OS Performed By: #### L 100.0100, L501.7300, L500.4050 ####[facility] [address] [place], [address] 25(OH)D3 [facility] 2023 25-hydroxyvitamin D3 [Mass/Vol] 39.6 ng/mL Normal 31.0-80.0 [facility] Comment on above: Order Comment: Speci men Type: BLOOD SPECIMEN Ordering Facility: [facility] Address: [address] [place] [address] Result Comment: Clas sification of 25 [place] Vitamin D status: Deficiency/Insufficiency: < or = 30 ng/ml. Sufficiency/Optimal Levels: 31-80 ng/mL Toxicity: > 100 ng/mL. Test performed by chemiluminescent immunoassay. Performed By: #### 2 4323-8 #### [facility] CLIA [id number] [address] [place] [address] [place] [address] [place] Basic metabolic 2000 panelon 05-11-2024 Anion gap [Moles/Vol] 11 mmol/L Normal 8-15 [facility] Comment on above: Order Comment: Speci men Type: BLOOD SPECIMEN Ordering Facility: [facility] Address: [address] [place] [address] Performed By: #### 2 4321-2 #### [facility] CLIA [id number] [address] [place] [address] [place] Calcium [Mass/Vol] 9.8 mg/dL Normal 8.5-10.2 [facility] Comment on above: Order Comment: Speci men Type: BLOOD SPECIMEN Ordering Facility: [facility] Address: [address] [place] [address] Performed By: #### 2 4321-2 #### [facility] CLIA [id number] [address] [place] [address] [place] Chloride [Moles/Vol] 104 mmol/L Normal 98-107 [facility] Comment on above: Order Comment: Speci men Type: BLOOD SPECIMEN Ordering Facility: [facility] Address: [address] [place] [address] Performed By: #### 2 4321-2 #### [facility] CLIA [id number] [address] [place] [address] [place] CO2 [Moles/Vol] 21 mmol/L Low 22-30 [facility] Comment on above: Order Comment: Mike gan Type: BLOOD SPECIMEN Ordering Facility: [facility] Address: [address] [place] [address] Performed By: #### 2 4321-2 #### [facility] CLIA [id number] [address] [place] [address] [place] Creatinine [Mass/Vol] 1.43 mg/dL High 0.58-0.96 [facility] Comment on above: Order Comment: Mike men Type: BLOOD SPECIMEN Ordering Facility: [facility] Address: [address] [place] [address] Performed By: #### 2 4321-2 #### [facility] [id number] [address] [place] [address] [place] [facility] Creatinine and Glomerular filtration rate.predicted panel (S/P/Bld) 47 mL/min/1.73m??? Low >=60 [facility] Comment on above: Order Comment: Mike gan Type: BLOOD SPECIMEN Ordering Facility: [facility] Address: [address] [place] [address] Result Comment: Ann mated Glomerular Filtration Rate (eGFR) is calculated using the 2020 CKD-EPI creatinine equation. This equation utilizes serum creatinine, sex, and age as parameters. The creatinine assay has traceable calibration to isotope dilution-mass spectrometry. Refer to KDIGO guidelines for clinical interpretation. In patients with unstable renal function, e.g. those with acute kidney injury, the eGFR may not accurately reflect actual GFR. Performed By: #### 2 4321-2 #### [facility] [id number] [address] [place] [address] [place] Glucose [Mass/Vol] 84 mg/dL Normal 74-99 [facility] Comment on above: Order Comment: Mike gan Type: BLOOD SPECIMEN Ordering Facility: [facility] Address: [address] [place] [address] Result Comment: The [place] Diabetes Association (ADA) provides guidance for cutoff values for fasting glucose and random glucose. The ADA defines fasting as no caloric intake for at least 8 hours. Fasting plasma glucose results between 100 to 125 mg/dL indicate increased risk for diabetes (prediabetes). Fasting plasma glucose results greater than or equal to 126 mg/dL meet the criteria for diagnosis of diabetes. In the absence of unequivocal hyperglycemia, results should be confirmed by repeat testing. In a patient with classic symptoms of hyperglycemia or hyperglycemic crisis, random plasma glucose results greater than or equal to 200 mg/dL meet the criteria for diagnosis of diabetes. Reference: Standards of Medical Care in Diabetes 2016, [place] Diabetes Association. Diabetes Care. 2016.39(Suppl 1). Performed By: #### 2 4321-2 #### [facility] [id number] [address] [place] [address] [place] Potassium [Moles/Vol] 4.0 mmol/L Normal 3.7-5.1 [facility] Comment on above: Order Comment: Speci men Type: BLOOD SPECIMEN Ordering Facility: [facility] Address: [address] [place] [address] Performed By: #### 2 4321-2 #### [facility] [id number] [address] [place] [address] [place] Sodium [Moles/Vol] 136 mmol/L Normal 136-144 [facility] Comment on above: Order Comment: Speci men Type: BLOOD SPECIMEN Ordering Facility: [facility] Address: [address] [place] [address] Performed By: #### 2 4321-2 #### [facility] [id number] [address] [place] [address] [place] Urea nitrogen [Mass/Vol] 16 mg/dL Normal 7-21 [facility] Comment on above: Order Comment: Leisai men Type: BLOOD SPECIMEN Ordering Facility: [facility] Address: [address] [place] [address] Performed By: #### 2 4321-2 #### [facility] CLIA [id number] [address] [place] [address] [place] CBC panel Auto (Bld)on 05-11 Erythrocyte distribution width (RBC) [Ratio] 14.6 % Normal 11.5-15.0 [facility] Comment on above: Order Comment: Speci men Type: BLOOD SPECIMEN Ordering Facility: [facility] Address: [address] [place] [address] Performed By: #### 2 4323-8 #### [facility] CLIA [id number] [address] [place] [address] [place] Hematocrit (Bld) [Volume fraction] 39.3 % Normal 36.0-46.0 [facility] Comment on above: Order Comment: Speci men Type: BLOOD SPECIMEN Ordering Facility: [facility] Address: [address] [place] [address] Performed By: #### 2 4323-8 #### [facility] CLIA [id number] [address] [place] [address] [place] Hemoglobin (Bld) [Mass/Vol] 13.1 g/dL Normal 11.5-15.5 [facility] Comment on above: Order Comment: Speci men Type: BLOOD SPECIMEN Ordering Facility: [facility] Address: [address] [place] [address] Performed By: #### 2 4323-8 #### [facility] CLIA [id number] [address] [place] [address] [place] MCH (RBC) [Entitic mass] 27.9 pg Normal 26.0-34.0 [facility] Comment on above: Order Comment: Speci men Type: BLOOD SPECIMEN Ordering Facility: [facility] Address: [address] [place] [address] Performed By: #### 2 4323-8 #### [facility] CLIA [id number] [address] [place] [address] [place] MCHC (RBC) [Mass/Vol] 33.3 g/dL Normal 30.5-36.0 [facility] Comment on above: Order Comment: Speci men Type: BLOOD SPECIMEN Ordering Facility: [facility] Address: [address] [place] [address] Performed By: #### 2 4323-8 #### [facility] CLIA [id number] [address] [place] [address] [place] MCV (RBC) [Entitic vol] 83.8 fL Normal 80.0-100.0 [facility] Comment on above: Order Comment: Speci men Type: BLOOD SPECIMEN Ordering Facility: [facility] Address: [address] [place] [address] Performed By: #### 2 4323-8 #### [facility] CLIA [id number] [address] [place] [address] [place] Nucleated RBC (Bld) [#/Vol] 10*3/uL Normal <0.01 [facility] Comment on above: Order Comment: Speci men Type: BLOOD SPECIMEN Ordering Facility: [facility] Address: [address] [place] [address] Performed By: #### 2 4323-8 #### [facility] CLIA [id number] [address] [place] [address] [place] Platelet mean volume (Bld) [Entitic vol] 9.2 fL Normal 9.0-12.7 [facility] Comment on above: Order Comment: Speci men Type: BLOOD SPECIMEN Ordering Facility: [facility] Address: [address] [place] [address] Performed By: #### 2 4323-8 #### [facility] CLIA [id number] [address] [place] [address] [place] Platelets (Bld) [#/Vol] 156 10*3/uL Normal 150-400 [facility] Comment on above: Order Comment: Speci men Type: BLOOD SPECIMEN Ordering Facility: [facility] Address: [address] [place] [address] Performed By: #### 2 4323-8 #### [facility] CLIA [id number] [address] [place] [address] [place] RBC (Bld) [#/Vol] 4.69 10*6/uL Normal 3.90-5.20 [facility] Comment on above: Order Comment: Speci men Type: BLOOD SPECIMEN Ordering Facility: [facility] Address: [address] [place] [address] Performed By: #### 2 4323-8 #### [facility] CLIA [id number] [address] [place] [address] [place] WBC (Bld) [#/Vol] 4.16 10*3/uL Normal 3.70-11.00 [facility] Comment on above: Order Comment: Speci men Type: BLOOD SPECIMEN Ordering Facility: [facility] Address: [address] [place] [address] Performed By: #### 2 4323-8 #### [facility] CLIA [id number] [address] [place] [address] [place] Ferritin SerPl-mCncon 2023 Ferritin [Mass/Vol] 79.6 ng/mL Normal 14.7-205.1 [facility] Comment on above: Order Comment: Speci men Type: BLOOD SPECIMEN Ordering Facility: [facility] Address: [address] [place] [address] Performed By: #### B 1WB #### [facility] CLIA [id number] [address] [place] [address] [place] Folate SerPl-mCncon 05-11-20 Folate [Mass/Vol] ng/mL Normal >4.7 [facility] Comment on above: Order Comment: Speci men Type: BLOOD SPECIMEN Ordering Facility: [facility] Address: [address] [place] [address] Result Comment: A re sult of > 20 ng/mL is not necessarily indicative of a pathologic or treatable condition: it reflects a limitation of the test methodology. Assay reference range: 4.8 to 24.2 ng/mL. Suitable for detection of folate deficiency. Reference: Folate III (Folate III) [package insert V 1.0 [place]]. [facility], [place], [place]: April 2015. Performed By: #### B 1WB #### [facility] CLIA [id number] [address] [place] [address] [place] Iron and Iron binding capaci ty panelon 05-11-2024 Iron [Mass/Vol] 41 ug/dL Normal 41-186 [facility] Comment on above: Order Comment: Speci men Type: BLOOD SPECIMEN Ordering Facility: [facility] Address: [address] [place] [address] Performed By: #### B 1WB #### [facility] CLIA [id number] [address] [place] [address] [place] Iron binding capacity [Mass/Vol] 366 ug/dL Normal 232-386 [facility] Comment on above: Order Comment: Speci men Type: BLOOD SPECIMEN Ordering Facility: [facility] Address: [address] [place] [address] Performed By: #### B 1WB #### [facility] CLIA [id number] [address] [place] [address] [place] Iron/TIBC [Molar ratio] 11.2 % Low 15.0-57.0 [facility] Comment on above: Order Comment: Speci men Type: BLOOD SPECIMEN Ordering Facility: [facility] Address: [address] [place] [address] Performed By: #### B 1WB #### [facility] CLIA [id number] [address] [place] [address] [place] [facility] Parathyrin.intact [Mass/Vol] 108 pg/mL High 15-65 [facility] Comment on above: Order Comment: Speci men Type: BLOOD SPECIMEN Ordering Facility: [facility] Address: [address] [place] [address] Performed By: #### B 1WB #### [facility] CLIA [id number] [facility] [address] [place] VITAMIN B1 (THIAMINE), WHOLE BLOODon 05-11-2024 Thiamine (Bld) [Moles/Vol] 330.2 nmol/L High 84.3-213.3 [facility] Comment on above: Order Comment: [facility] Type: BLOOD SPECIMENOrdering Facility: [facility] Address: [address] [place] [address] Result Comment: Resu lt rechecked. This assay measures the concentration of thiamine diphosphate (TDP), the primary active form of vitamin B1. Approximately 90 percent of vitamin B1 present in whole blood is TDP. Thiamine and thiamine monophosphate, which comprise the remaining 10 percent, are not measured. This test was developed, and its performance characteristics determined by the [facility] Department of Pathology and Laboratory Medicine. It has not been cleared or approved by the FDA. The [facility] Department of Pathology and Laboratory Medicine is regulated under CLIA as qualified to perform high-complexity testing. This test is used for clinical purposes. It should not be regarded as investigational or for research. Performed By: #### B 1WB ####[facility] [id number] [facility] [place] [address] [place] Vit A SerPl-mCncon Retinol [Mass/Vol] 1.07 mg/L Normal 0.30-1.20 [facility] Comment on above: Order Comment: Mike gan Type: BLOOD SPECIMEN Ordering Facility: [facility] Address: [address] [place] [address] Result Comment: Test performed at [facility] in [place], [place] This test was developed and its performance characteristics determined by [facility]. It has not been cleared or approved by the [place] Food and Drug Administration. This test was performed in a CLIA certified laboratory and is intended for clinical purposes. Performed By: #### 2 4323-8 #### [facility] CLIA [id number] [address] [place] [address] [place] Vit B12 SerPl-mCncon 024 Cobalamin (Vitamin B12) [Mass/Vol] 904 pg/mL Normal 232-1245 [facility] Comment on above: Order Comment: Speci men Type: BLOOD SPECIMEN Ordering Facility: [facility] Address: [address] [place] [address] Performed By: #### B 1WB #### [facility] CLIA [id number] [address] [place] [address] [place] [facility] Zinc [Mass/Vol] 92 ug/dL Normal 60-120 [facility] Comment on above: Order Comment: Speci men Type: BLOOD SPECIMEN Ordering Facility: [facility] Address: [address] [place] [address] Result Comment: This test was developed, and its performance characteristics determined by the [facility] Department of Pathology and Laboratory Medicine. It has not been cleared or approved by the FDA. The [facility] Department of Pathology and Laboratory Medicine is regulated under CLIA as qualified to perform high-complexity testing. This test is used for clinical purposes. It should not be regarded as investigational or for research. Performed By: #### 2 4321-2 #### [facility] CLIA [id number] [address] [place] [address] [place] VINAY SCREENINGon 04-27-2024 VINAY SCREENING * * *Final Report* * * DATE OF EXAM: Apr 27 2024 10:07AM [facility] 0581 - [facility] SCREENING / PROCEDURE REASON: Encounter for screening mammogram for malignant neoplasm of breast * * * * Physician Interpretation * * * * RESULT: [facility] [address] [place] [address] HISTORY: Patient is 43 years old and is seen for screening and is asymptomatic in both breasts. Patient states no personal history of breast cancer. Patient states no personal history of other cancers. COMPARISON STUDIES: No prior imaging studies are available for comparison. MAMMOGRAM TECHNIQUE: The study was acquired using full field digital technology and interpreted from soft copy. Computer-aided detection was utilized by the radiologist in the interpretation of this examination. MAMMOGRAM FINDINGS: There are scattered areas of fibroglandular density. There are bilateral implants . Breast implants may obscure the breast parenchyma, limiting visualization. The implants appear smooth in contour with no evidence of rupture or leak. No suspicious masses, calcifications or other abnormalities are seen in either breast. IMPRESSION: There is no mammographic evidence of malignancy. Routine screening mammogram is recommended. Annual mammogram will be due in 1 year. BI-RADS Category 2: Benign Interpreting Radiologist: Wild Castaneda M.D. Electronically signed on: 05/01/2024 Interpreting Radiologist: Wild Castaneda M.D. Electronically signed on: 05/01/2024 Slip Cover Seamstress: HARDEEP Transcribe Date/Time: Apr 27 2024 9:55A Dictated by: MARIA C GOODWIN MD This examination was interpreted and the report reviewed and electronically signed by: WILD CASTANEDA MD on May 01 2024 11:08PM EST [id number] Normal [facility] [place] 04-25-2024 CNPN Telephone (AGGENS4) MARIIA DAVIDSON ([id number]) 1980 F Date Time Provider Department 04/25/24 NEENA PIKE During your visit today, we recorded the following information about you: Roosevelt Peters 04/25/2024 1:49 PM Signed LVM for patient to call back and schedule a 1 month follow up appointment. Scutum message sent to patient Allergies As of Date: 04/25/2024 (No Known Allergies) Date Reviewed: 03/29/2024 Reviewed by: Abigail Mcdermott MD - Fully Assessed Reason for Visit: Appointment [186] Prescriptions as of 04/25/2024 - acetaminophen (TYLENOL) 500 mg tablet Take 2 tablets by mouth every 6 hours as needed for pain. TO START AFTER SURGERY - biotin 1 mg cap Take by mouth once daily. - vitamin b complex capsule Take 1 capsule by mouth once daily. - oxyCODONE-acetaminoph en (PERCOCET) 5-325 mg tablet Take 1 tablet by mouth every 8 hours as needed for pain (HAD SURGERY 03/06/24). LAST DAY PER PATIENT 03/13/24 - pantoprazole DR (PROTONIX) 40 mg tablet Take 1 tablet by mouth once daily. TO START AFTER SURGERY. Take every day for 6 months after surgery. - ondansetron (ZOFRAN) 4 mg tablet Take 1 tablet by mouth every 8 hours as needed for nausea/vomiting (for nausea.). TO START AFTER SURGERY. - fenofibrate nanocrystallized (TRICOR) 145 mg tablet Take 145 mg by mouth once daily. - gabapentin (NEURONTIN) 300 mg capsule Take 300 mg by mouth two times a day. - colestipol (COLESTID) 1 gram tablet Take 2 g by mouth daily at bedtime. - clonazePAM (KLONOPIN) 1 mg tablet Take 1 mg by mouth two times a day as needed for anxiety. - cholecalciferol, Vitamin D3, (VITAMIN D3) 1,250 mcg (50,000 unit) cap capsule Take 1 capsule by mouth one time a week for 12 doses. Transition to 2,000-4,000 units of Vitamin D OTC after completing 12 weeks - amLODIPine (NORVASC) 5 mg tablet Take 5 mg by mouth once daily. - metFORMIN ER (FORTAMET) 500 mg 24 hr tablet Take 1,000 mg by mouth two times a day. - lurasidone (LATUDA) 120 mg tablet Take by mouth once daily. - POTASSIUM CITRATE ORAL Take 15 mEq by mouth once daily. - sertraline (ZOLOFT) 100 mg tablet Take 200 mg by mouth once daily. - telmisartan (MICARDIS) 40 mg tablet Take 40 mg by mouth once daily. - levothyroxine 50 mcg cap Take 50 mcg by mouth daily before breakfast. 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] 12/06/2023 Body mass index 37.0-37.9, adult [Z68.37] 03/12/2024 HLD (hyperlipidemia) [E78.5] 03/12/2024 Medical marijuana use [Z79.899] 03/12/2024 Pre-op examination [Z01.818] 03/12/2024 Hypokalemia due to excessive gastrointestinal l*03/13/2024 Obesity, Class II, BMI 35-39.9 [E66.812] 03/19/2024 Encounter Status:Closed by ROOSEVELT PETERS on 04/25/24 [facility] MR/BMS.BPon 04-17-2024 MR/BMS.BP [address], [address] [place] [address] OFFICE VISIT Date of Service: 04/17/24 MR#: [id number] Acct: [id number] Name: LETYMARIIA JUAN Rep #: [id number] : 1980 Provider: Dr. Kurtis Higuera se DO Age/Sex: 43/F Location: [facility].BP Status: Signed Intake Vital Signs 02/14/24 07:35 04/17/24 07:32 Height 5 ft 9 in 5 ft 9 in BP 121/85 H Blood Pressure Location Rt brachial Position Sitting Pulse 94 Pulse Source Monitor BP Intake Visit Reasons: follow up Accompanied by: Self Allergies No Known Allergies Allergy (Verified 04/17/24 07:35) Medications ???Medication ???Instructions ???Recorded ???Confirmed ???Type potassium chloride 20 mEq 20 meq PO BID supplement 12/13/21 09/15/23 History tablet,extended release levothyroxine 25 mcg tablet 50 mcg PO DAILY thyroid 07/06/22 09/15/23 History metformin 500 mg tablet 500 mg PO BID glucose 08/19/22 09/15/23 History amlodipine 5 mg tablet 5 mg PO DAILY blood pressure 09/07/22 09/15/23 History fenofibrate nanocrystallized 145 1 tablet PO .supper . 10/20/22 09/15/23 History mg tablet telmisartan 40 mg tablet 40 mg PO QHS blood pressure 10/20/22 09/15/23 History colestipol 1 gram tablet 2 g (2 x 1 gram) PO BID . #60 tabs 12/22/22 09/15/23 Rx aspirin 81 mg capsule 81 mg PO DAILY 03/11/23 09/15/23 History ondansetron 4 mg disintegrating 4 mg PO Q8H PRN PRN Nausea #10 tabs 05/14/23 09/15/23 Rx tablet tamsulosin 0.4 mg capsule 0.4 mg PO Q24H 05/14/23 09/15/23 History clonazepam 1 mg tablet 1 mg PO BID PRN anxiety #60 tabs 03/29/24 Rx gabapentin 300 mg capsule 300 mg PO BID 30 days #60 caps 03/29/24 Rx lurasidone 120 mg tablet See Rx Instructions .Route 04/17/24 04/17/24 Rx .COMPLEX #30 tabs sertraline 100 mg tablet 200 mg (2 x 100 mg) PO QHS #60 04/17/24 04/17/24 Rx TABLETS PFSH Medical History Leg cramps PONV (postoperative nausea and vomiting) CRVO (central retinal vein occlusion) Right ureteral calculus Anxiety Bipolar 2 disorder Thyroid disease Diabetes Anemia Fatty liver Migraine headache Chronic diarrhea Non-smoker Decreased circulation Insomnia Bipolar 1 disorder Diarrhea Alcoholic hepatitis Breast lump Alcohol abuse Hypertension Surgical History (Updated 04/17/24 @ 07:39 by Susana Marshall) H/O gastric sleeve Hx of cystoscopy Hx laparoscopic cholecystectomy Hx of colonoscopy Hx of tonsillectomy delivery delivered Family History Father Heart disease Mother Cancer lung- smoker Social History (Updated 04/17/24 @ 07:39 by Susana Marshall) Smoking Status: Never smoker alcohol intake: former details: social substance use type: does not use caffeine: Yes what type of physical activity do you participate in: none seatbelt use: always do you feel safe at home: Yes additional social history: [employer] Patient works at [employer] History of Present Illness History provided by: patient HPI: Mariia Davidson is a 43 year old female who presents today for follow up evaluation. Patient reports that she has been pretty good. Admits to having breast augementation in February and gastric sleeve in March. She has lost a total of around 40 lbs since around November. She had been struggling with food cravings so started Qysmia and Mounjaro. Finds that eating is now not an enjoyable experience. Feels like her mental health is doing well. Has been taking all her medication as prescribed with the exception of not eating with lurasidone. Does feel like she is somewhat more irritable in recent past, but otherwise feels good. Plans to discuss her medication list with PCP in near future. Has been off work since March 19 and plans to go back to work on the 30 of April. Sleep has been really good. Has been utilizing marijuana gummies to help with sleep. Contiues to follow Blossom Rodriguez regularly. Her friend is with twin girls and this made her feel extremely jealous. This is because she has always wanted to have twins and to always want to have a daughter. Review of Systems Constitutional Denies: fever(s), chills, change in weight or fatigue Eyes Denies: change in vision or blurry vision Ears, Nose, Mouth, Throat Denies: throat pain, neck pain or change in hearing Cardiovascular Denies: chest pain, palpitations or dyspnea Respiratory Denies: dyspnea, cough or wheezing Gastrointestinal Denies: abdominal pain, nausea, vomiting, diarrhea or constipation Genitourinary Denies: dysuria or urinary frequency Musculoskeletal Denies: neck pain, joint pain or muscle weakness Integumentary/Breast Denies: rash or new lesions Neurological Denies: headache(s), diz (more content not included)... Normal [facility] CONFIRM BLOOD TYPEon 024 ABO group Nom (Bld) A [facility] Rh Nom (Bld) Negative [facility] 25(OH)D3 SerPl-mCncon 2023 25-hydroxyvitamin D3 [Mass/Vol] 74.2 ng/mL Normal 31.0-80.0 [facility] Comment on above: Order Comment: Speci men Type: BLOOD SPECIMENOrdering Facility: [facility] Address: [address] [place] [address] Result Comment: Clas sification of 25 OH Vitamin D status: Deficiency/Insufficiency: < or = 30 ng/ml. Sufficiency/Optimal Levels: 31-80 ng/mL Toxicity: > 100 ng/mL. Test performed by chemiluminescent immunoassay. Performed By: #### 1 989-3 ####[facility] [id number] [place] [address] [place] Basic metabolic 2000 panelon 02-06-2024 Anion gap [Moles/Vol] 11 mmol/L Normal 8-15 [facility] Comment on above: Order Comment: Speci men Type: BLOOD SPECIMEN Ordering Facility: [facility] Address: [address] [place] [address] Performed By: #### 2 4323-8 #### [facility] CLIA [id number] [address] [place] [address] [place] Calcium [Mass/Vol] 10.2 mg/dL Normal 8.5-10.2 [facility] Comment on above: Order Comment: Speci men Type: BLOOD SPECIMEN Ordering Facility: [facility] Address: [address] [place] [address] Performed By: #### 2 4323-8 #### [facility] CLIA [id number] [address] [place] [address] [place] Chloride [Moles/Vol] 106 mmol/L Normal 98-107 [facility] Comment on above: Order Comment: Speci men Type: BLOOD SPECIMEN Ordering Facility: [facility] Address: [address] [place] [address] Performed By: #### 2 4323-8 #### [facility] CLIA [id number] [address] [place] [address] [place] CO2 [Moles/Vol] 20 mmol/L Low 22-30 [facility] Comment on above: Order Comment: Speci men Type: BLOOD SPECIMEN Ordering Facility: [facility] Address: [address] [place] [address] Performed By: #### 2 4323-8 #### [facility] CLIA [id number] [address] [place] [address] [place] Creatinine [Mass/Vol] 1.42 mg/dL High 0.58-0.96 [facility] Comment on above: Order Comment: Speci men Type: BLOOD SPECIMEN Ordering Facility: [facility] Address: [address] [place] [address] Performed By: #### 2 4323-8 #### [facility] CLIA [id number] [address] [place] [address] [place] Creatinine and Glomerular filtration rate.predicted panel (S/P/Bld) 47 mL/min/1.73m??? Low >=60 [facility] Comment on above: Order Comment: Speci men Type: BLOOD SPECIMEN Ordering Facility: [facility] Address: [address] [place] [address] Result Comment: Ann mated Glomerular Filtration Rate (eGFR) is calculated using the 2020 CKD-EPI creatinine equation. This equation utilizes serum creatinine, sex, and age as parameters. The creatinine assay has traceable calibration to isotope dilution-mass spectrometry. Refer to KDIGO guidelines for clinical interpretation. In patients with unstable renal function, e.g. those with acute kidney injury, the eGFR may not accurately reflect actual GFR. Performed By: #### 2 4323-8 #### [facility] CLIA [id number] [address] [place] [address] [place] Glucose [Mass/Vol] 121 mg/dL High 74-99 [facility] Comment on above: Order Comment: Speci men Type: BLOOD SPECIMEN Ordering Facility: [facility] Address: [address] [place] [address] Result Comment: The [place] Diabetes Association (ADA) provides guidance for cutoff values for fasting glucose and random glucose. The ADA defines fasting as no caloric intake for at least 8 hours. Fasting plasma glucose results between 100 to 125 mg/dL indicate increased risk for diabetes (prediabetes). Fasting plasma glucose results greater than or equal to 126 mg/dL meet the criteria for diagnosis of diabetes. In the absence of unequivocal hyperglycemia, results should be confirmed by repeat testing. In a patient with classic symptoms of hyperglycemia or hyperglycemic crisis, random plasma glucose results greater than or equal to 200 mg/dL meet the criteria for diagnosis of diabetes. Reference: Standards of Medical Care in Diabetes 2016, [place] Diabetes Association. Diabetes Care. 2016.39(Suppl 1). Performed By: #### 2 4323-8 #### [facility] CLIA [id number] [address] [place] [address] [place] Potassium [Moles/Vol] 4.4 mmol/L Normal 3.7-5.1 [facility] Comment on above: Order Comment: Speci men Type: BLOOD SPECIMEN Ordering Facility: [facility] Address: [address] [place] [address] Performed By: #### 2 4323-8 #### [facility] CLIA [id number] [address] [place] [address] [place] Sodium [Moles/Vol] 137 mmol/L Normal 136-144 [facility] Comment on above: Order Comment: Speci men Type: BLOOD SPECIMEN Ordering Facility: [facility] Address: [address] [place] [address] Performed By: #### 2 4323-8 #### [facility] CLIA [id number] [address] [place] [address] [place] Urea nitrogen [Mass/Vol] 33 mg/dL High 7-21 [facility] Comment on above: Order Comment: Speci men Type: BLOOD SPECIMEN Ordering Facility: [facility] Address: [address] [place] [address] Performed By: #### 2 4323-8 #### [facility] CLIA [id number] [address] [place] [address] [place] NICOTINE AND METAB, URon URIN ANABASINE QUANT <5 Normal [facility] Comment on above: Order Comment: Speci men Type: URINE SPECIMEN Ordering Facility: [facility] Address: [address] [place] [address] Performed By: #### U NICOT #### [facility] CLIA [id number] [address] [place] [address] URIN COTININE QUANT <15 Normal [facility] Comment on above: Order Comment: Speci men Type: URINE SPECIMEN Ordering Facility: [facility] Address: [address] [place] [address] Performed By: #### U NICOT #### [facility] CLIA [id number] [address] [place] [address] URIN NICOTINE QUANT <15 Normal [facility] Comment on above: Order Comment: Speci men Type: URINE SPECIMEN Ordering Facility: [facility] Address: [address] [place] [address] Result Comment: INTE RPRETIVE INFORMATION: Nicotine and Metabolites, Urine, Quantitative Methodology: Quantitative Liquid Chromatography-Tandem Mass Spectrometry Positive cutoff: Nicotine 15 ng/mL Cotinine 15 ng/mL 8-YE-Ebheqypx 50 ng/mL Anabasine 5 ng/mL For medical purposes only; not valid for forensic use. This test is designed to evaluate recent use of nicotine-containing products. Passive and active exposure cannot be discriminated definitively, although a cutoff of 100 ng/mL cotinine is frequently used for surgery qualification purposes. For smoking cessation programs or compliance testing, the absence of expected drug(s) and/or drug metabolite(s) may indicate non-compliance, inappropriate timing of specimen collection relative to drug administration, poor drug absorption, diluted/adulterated urine, or limitations of testing. The concentration value must be greater than or equal to the cutoff to be reported as positive. Anabasine is included as a biomarker of tobacco use, versus nicotine replacement. Interpretive questions should be directed to the laboratory. This test was developed and its performance characteristics determined by [facility]. It has not been cleared or approved by the [place] Food and Drug Administration. This test was performed in a CLIA certified laboratory and is intended for clinical purposes. Performed By: [facility] [address] [place] [address] [employer] Finisher: Estevan Dunbar MD, PhD CLIA Number: [id number] Performed By: #### U NICOT #### [facility] CLIA [id number] [address] [place] [address] URINE 3 OH COTININE <50 Normal [facility] Comment on above: Order Comment: Speci men Type: URINE SPECIMEN Ordering Facility: [facility] Address: [address] [place] [address] Performed By: #### U NICOT #### [facility] CLIA [id number] [address] [place] [address] PTH-Intact SerPl-ncon 01-12 Parathyrin.intact [Mass/Vol] 40 pg/mL Normal 15-65 [facility] Comment on above: Order Comment: Speci men Type: BLOOD SPECIMENOrdering Facility: [facility] Address: [address] [place] [address] Performed By: #### 2 731-8 ####[facility] [id number] [facility] [place] [id number] [address] [place] TOXICOLOGY SCREEN, ROUTINE U RINEon 02-06-2024 Amphetamines Confirm (U) [Mass/Vol] Negative Normal Negative [facility] Comment on above: Order Comment: Speci men Type: BLOOD SPECIMEN Ordering Facility: [facility] Address: [address] [place] [address] Result Comment: Cuto ff threshold at 1000 ng/mL. Performed By: #### B 1WB #### [facility] CLIA [id number] [address] [place] [address] [place] BARBITURATES, URINE Negative Normal Negative [facility] Comment on above: Order Comment: Speci men Type: BLOOD SPECIMEN Ordering Facility: [facility] Address: [address] [place] [address] Result Comment: Cuto ff threshold at 200 ng/mL. Performed By: #### B 1WB #### [facility] CLIA [id number] [address] [place] [address] [place] BENZODIAZEPINES, UR Positive Abnormal Negative [facility] Comment on above: Order Comment: Speci men Type: BLOOD SPECIMEN Ordering Facility: [facility] Address: [address] [place] [address] Result Comment: Cuto ff threshold at 200 ng/mL. Performed By: #### B 1WB #### [facility] CLIA [id number] [address] [place] [address] [place] Cannabinoids Screen Ql (U) Positive Abnormal Negative [facility] Comment on above: Order Comment: Speci men Type: BLOOD SPECIMEN Ordering Facility: [facility] Address: [address] [place] [address] Result Comment: Cuto ff threshold at 50 ng/mL. Performed By: #### B 1WB #### [facility] CLIA [id number] [address] [place] [address] [place] Cocaine Ql (U) Negative Normal Negative [facility] Comment on above: Order Comment: Speci men Type: BLOOD SPECIMEN Ordering Facility: [facility] Address: [address] [place] [address] Result Comment: Cuto ff threshold at 300 ng/mL. Performed By: #### B 1WB #### [facility] CLIA [id number] [address] [place] [address] [place] Ethanol (U) [Mass/Vol] <11 Normal <11 [facility] Comment on above: Order Comment: Speci men Type: BLOOD SPECIMEN Ordering Facility: [facility] Address: [address] [place] [address] Performed By: #### B 1WB #### [facility] CLIA [id number] [address] [place] [address] [place] Opiates Screen Ql (U) Negative Normal Negative [facility] Comment on above: Order Comment: Speci men Type: BLOOD SPECIMEN Ordering Facility: [facility] Address: [address] [place] [address] Result Comment: Cuto ff threshold at 300 ng/mL. Performed By: #### B 1WB #### [facility] CLIA [id number] [address] [place] [address] [place] oxyCODONE cutoff Screen (U) [Mass/Vol] Negative Normal Negative [facility] Comment on above: Order Comment: Speci men Type: BLOOD SPECIMEN Ordering Facility: [facility] Address: [address] [place] [address] Result Comment: Cuto ff threshold at 100 ng/mL. Performed By: #### B 1WB #### [facility] CLIA [id number] [address] [place] [address] [place] Phencyclidine Ql (U) Negative Normal Negative [facility] Comment on above: Order Comment: Speci men Type: BLOOD SPECIMEN Ordering Facility: [facility] Address: [address] [place] [address] Result Comment: Cuto ff threshold at 25 ng/mL. Performed By: #### B 1WB #### [facility] CLIA [id number] [address] [place] [address] [place] ECG B/O W INTERP (MED OFFICE )on 01-30-2024 Sinus tachycardia at 105 bpm. Otherwise normal EKG [facility] RF Gastrointestinal tract up per Views W air contrast PO and W barium contrast Karen 01-20-2024 IMPRESSION: Findings as discussed under Results portion of report. Slip Cover Seamstress: PSCB Transcribe Date/Time: Jan 20 2024 4:12P Dictated by : LUIS CAMACHO DO This examination was interpreted and the report reviewed and electronically signed by: LUIS CAMACHO DO on Jan 20 2024 4:15PM [facility] * * *Final Report* * * DATE OF EXAM: Jan 20 2024 9:01AM MDX 5379 - XR UPPER GI DOUBLE CONTRAST/AIR / PROCEDURE REASON: multiple diagnoses * * * * Physician Interpretation * * * * Study: Upper GI single contrast study. HISTORY: Indication: Class 2 severe obesity with serious comorbidity and body mass index (BMI) of 39.0 to 39.9 in adult, unspecified obesity type (HCC) Class 2 severe obesity with serious comorbidity and body mass index (BMI) of 39.0 to 39.9 in adult, unspecified obesity type (HCC) TECHNIQUE: Fluoroscopic Radiation Summary: Fluoroscopic Radiation Summary: Plane A, Air Kerma: 41.7 mGy Dose Area Product (DAP): 00247.6 mGy*cm2 Fluoro time: 2:00 min:sec Images obtained: 10 Spot/cine fluoroscopy images under fluoroscopic guidance. Images were stored in a permanent archive Comparison: NONE. RESULT: Findings: Esophagus: Swallowing function unremarkable. Prominent cricopharyngeus impression was noted.. No hiatal hernia is seen. No gastroesophageal reflux identified. Stomach: There did appear to be fluid present within the stomach. There is limited evaluation of the stomach to some degree. Duodenum: No evidence of ulceration. [facility] Provider, Alexandre Moore - 01/20/2024 * * *Final Report* * * DATE OF EXAM: Jan 20 2024 9:01AM MDX 5379 - XR UPPER GI DOUBLE CONTRAST/AIR / PROCEDURE REASON: multiple diagnoses * * * * Physician Interpretation * * * * Study: Upper GI single contrast study. HISTORY: Indication: Class 2 severe obesity with serious comorbidity and body mass index (BMI) of 39.0 to 39.9 in adult, unspecified obesity type (HCC) Class 2 severe obesity with serious comorbidity and body mass index (BMI) of 39.0 to 39.9 in adult, unspecified obesity type (HCC) TECHNIQUE: Fluoroscopic Radiation Summary: Fluoroscopic Radiation Summary: Plane A, Air Kerma: 41.7 mGy Dose Area Product (DAP): 74575.6 mGy*cm2 Fluoro time: 2:00 min:sec Images obtained: 10 Spot/cine fluoroscopy images under fluoroscopic guidance. Images were stored in a permanent archive Comparison: NONE. RESULT: Findings: Esophagus: Swallowing function unremarkable. Prominent cricopharyngeus impression was noted.. No hiatal hernia is seen. No gastroesophageal reflux identified. Stomach: There did appear to be fluid present within the stomach. There is limited evaluation of the stomach to some degree. Duodenum: No evidence of ulceration. IMPRESSION IMPRESSION: Findings as discussed under Results portion of report. Slip Cover Seamstress: PSCB Transcribe Date/Time: Jan 20 2024 4:12P Dictated by : LUIS CAMACHO DO This examination was interpreted and the report reviewed and electronically signed by: LUIS CAMACHO DO on Jan 20 2024 4:15PM EST [facility] Study observation (narrative) [facility] RF Gastrointestinal tract up per Views W air contrast PO and W barium contrast POOrdered By: [facility] Provider on 01-20-2024 [facility] XR UPPER GI DOUBLE CONTRAST/ AIRon 01-20-2024 XR UPPER GI DOUBLE CONTRAST/AIR * * *Final Report* * * DATE OF EXAM: Jan 20 2024 9:01AM MDX 5379 - XR UPPER GI DOUBLE CONTRAST/AIR / PROCEDURE REASON: multiple diagnoses * * * * Physician Interpretation * * * * Study: Upper GI single contrast study. HISTORY: Indication: Class 2 severe obesity with serious comorbidity and body mass index (BMI) of 39.0 to 39.9 in adult, unspecified obesity type (HCC) Class 2 severe obesity with serious comorbidity and body mass index (BMI) of 39.0 to 39.9 in adult, unspecified obesity type (HCC) TECHNIQUE: Fluoroscopic Radiation Summary: Fluoroscopic Radiation Summary: Plane A, Air Kerma: 41.7 mGy Dose Area Product (DAP): 85867.6 mGy*cm2 Fluoro time: 2:00 min:sec Images obtained: 10 Spot/cine fluoroscopy images under fluoroscopic guidance. Images were stored in a permanent archive Comparison: NONE. RESULT: Findings: Esophagus: Swallowing function unremarkable. Prominent cricopharyngeus impression was noted.. No hiatal hernia is seen. No gastroesophageal reflux identified. Stomach: There did appear to be fluid present within the stomach. There is limited evaluation of the stomach to some degree. Duodenum: No evidence of ulceration. IMPRESSION: Findings as discussed under Results portion of report. Slip Cover Seamstress: AURORA Transcribe Date/Time: Jan 20 2024 4:12P Dictated by : LUIS CAMACHO DO This examination was interpreted and the report reviewed and electronically signed by: LUIS CAMACHO DO on Jan 20 2024 4:15PM EST [id number] N [facility] POLYSOMNOGRAM (PSG)/HOME SLE EP APNEA TEST (HSAT)on 01-12-2024 POLYSOMNOGRAM (PSG)/HOME SLEEP APNEA TEST (HSAT) [facility] at [address], [facility] [address] [address] ; Home Sleep Apnea Test (HSAT) Study Report Name: MARIIA DAVIDSON Date of Study: 01/12/2024 [facility]#: [id number] Age: 43 (: 1980) ESS: 0/24 Neck Circ. (cm): -- Height (cm): 175.3 Weight (kg): 118.6 BMI: 38.6 Referring Provider: FRANTZ ORELLANA Mailcode: Negin Stevens Sleep history: The patient is a 43 year old female is here for assessment of obstructive sleep apnea. The patient endorses being a habitual side sleeper. Pertinent medical history: Depression, Hypertension, Hypothyroidism, Obesity, Prediabetes Medications: Amlodipine, Cholecalciferol, Clonazepam, colestipol, Levothyroxine, Latuda, Metformin, Sertraline, Telmisartan Sleep procedure: PSG unattended Type III, minimum of 4 parameters (28859) Procedure: This study was performed using a Type III ambulatory PSG device and was unattended. The patient was instructed on proper use of the device by a registered radiation therapy technologist. The monitored parameters included heart rate, oxygen saturation, continuous airflow with thermistor and nasal pressure transducer, snoring via nasal pressure transducer, chest and abdominal effort, and body position. ANOOP definition: Respiratory event index (ANOOP), calculated as respiratory events x 60 / TRT (total recording time in minutes). Note: the apnea hypopnea index has been replaced by the respiratory event index for home sleep apnea test. Since the home sleep apnea test does not measure sleep, the ANOOP is most accurate index of respiratory events. The ANOOP is a surrogate of the AHI per the AASM Manual for Scoring of Sleep and Associated Events version 2.6. Apnea definition: The peak signal excursions drop by >90% of pre-event baseline using an oronasal thermal sensor (diagnostic study), PAP device flow (titration study) or an alternative apnea sensor (diagnostic study). The duration of the >90% drop in signal excursion is >=10 seconds. Hypopnea definition: The peak signal excursions drop by >= 30% of pre-event baseline using nasal pressure (diagnostic study), PAP device flow (titration study) or an alternative hypopnea sensor (diagnostic study). The duration of the >= 30% drop in signal excursion is >=10 seconds. There is a greater than or equal to 3% oxygen desaturation from pre-event baseline. RESPIRATORY DATA: The study started at 22:11:31 and ended at 07:33:05 and the total recording time was 561 minutes. By convention, sleep is assumed for the whole recording. Snoring was noted. There was a total of 61 respiratory events. Of these events, the total number of apneas was 0 (0 obstructive, 0 mixed, and 0 central (0.0%)) and 61 hypopneas. The central apnea index (JENNIFER) was 0.0. The respiratory event index (ANOOP) was 6.5 events per hour of study time. The mean oxygen saturation during the study was 94.0%, with a minimum oxygen saturation of 88.0%. The patient spent 1.4 minutes at oxygen saturation measured less than 90% (0.3% of recording time) and 0.1 minutes at oxygen saturation measured at or less than 88% (0.0% of recording time). Time ANOOP/AHI Supine 148.5 min 5.3 Off-Supine 413.0 min 7.0 Total 561.5 min 6.5 ECG DATA: The average heart rate was 88 bpm with a range of 72 bpm to 113 bpm. ICSD DIAGNOSIS: Obstructive Sleep Apnea Syndrome [G47.33] IMPRESSION/RECOMMENDA TIONS: 1. This study confirms a diagnosis of at least mild obstructive sleep apnea. 2. The results of this study may represent an underestimation of the degree of obstructive sleep apnea, especially hypopneas, because of the known limitations of HSAT, such as inability to record arousals because EEG is not recorded. 3. Treatment of mild sleep apnea can include weight loss, positional therapy, treatment of allergies, oral appliance therapy or ENT evaluation of any airway abnormalities. PAP therapy may be considered in patients with documented symptoms of daytime sleepiness, impaired cognition, mood disorder, insomnia, or documented hypertension, ischemic heart disease, or history of stroke. INTERPRETING PHYSICIAN: JOYCE Wilson DO MS I attest that I have performed epoch by epoch review of the entire raw data and find this study to be technically adequate. Report Digitally Signed By: NORMA WILSON (01/23/2024 12:29:25 PM) Normal [facility] Lipid 1996 panelon 4 Cholesterol [Mass/Vol] 140 mg/dL Normal <200 [facility] Comment on above: Order Comment: Specclarence gan Type: BLOOD SPECIMEN Ordering Facility: [facility] Address: [address] [place] [address] Result Comment: <200 mg/dL, Desirable 200-239 mg/dL, Borderline high >239 mg/dL, High Performed By: #### 2 4323-8 #### [facility] CLIA [id number] [address] [place] [address] [place] Cholesterol in HDL [Mass/Vol] 35 mg/dL Low >39 [facility] Comment on above: Order Comment: Mike gan Type: BLOOD SPECIMEN Ordering Facility: [facility] Address: [address] [place] [address] Result Comment: 40-5 9 mg/dL, Acceptable >59 mg/dL, High: Negative risk factor for coronary heart disease <40 mg/dL, Low: Positive risk factor for coronary heart disease Performed By: #### 2 4323-8 #### [facility] CLIA [id number] [address] [place] [address] [place] Cholesterol in LDL [Mass/Vol] 71 mg/dL Normal <100 [facility] Comment on above: Order Comment: Mike men Type: BLOOD SPECIMEN Ordering Facility: [facility] Address: [address] [place] [address] Result Comment: <100 mg/dL, Optimal 100-129 mg/dL, Near optimal/above optimal 130-159 mg/dL, Borderline high 160-189 mg/dL, High >189 mg/dL, Very high Secondary prevention optimal LDL Cholesterol levels are recommended to be < 70 mg/dL Performed By: #### 2 4323-8 #### [facility] CLIA [id number] [address] [place] [address] [place] Cholesterol in LDL/Cholesterol in HDL [Mass ratio] 2.03 {ratio} Normal <2.54 [facility] Comment on above: Order Comment: Mike gan Type: BLOOD SPECIMEN Ordering Facility: [facility] Address: [address] [place] [address] Result Comment: Padmini ku: 1. National Cholesterol Education Program ATP III Guideline At-A-Glance Quick Desk Reference: National Heart, Lung, and Blood Bush. National Institutes of Health. 2001: NIH Publication No. 01-3305. 2. An International Atherosclerosis Society position paper: global recommendations for the management of dyslipidemia: executive summary, Atherosclerosis. 2014: 232(2):410-413. Performed By: #### 2 4323-8 #### [facility] CLIA [id number] [address] [place] [address] [place] Cholesterol in VLDL [Mass/Vol] 34 mg/dL High <30 [facility] Comment on above: Order Comment: Mike men Type: BLOOD SPECIMEN Ordering Facility: [facility] Address: [address] [place] [address] Performed By: #### 2 4323-8 #### [facility] CLIA [id number] [address] [place] [address] [place] Cholesterol non HDL [Mass/Vol] 105 mg/dL Normal <130 [facility] Comment on above: Order Comment: Leisai men Type: BLOOD SPECIMEN Ordering Facility: [facility] Address: [address] [place] [address] Result Comment: <130 mg/dL, Optimal 130-159 mg/dL, Near optimal/above optimal 160-189 mg/dL, Borderline high 190-219 mg/dL, High >219 mg/dL, Very high Secondary prevention optimal non HDL Cholesterol levels are recommended to be <100 mg/dL Performed By: #### 2 4323-8 #### [facility] CLIA [id number] [address] [place] [address] [place] Cholesterol.total/Cho lesterol in HDL [Mass ratio] 4.00 {ratio} Normal <5.10 [facility] Comment on above: Order Comment: Speci men Type: BLOOD SPECIMEN Ordering Facility: [facility] Address: [address] [place] [address] Performed By: #### 2 4323-8 #### [facility] CLIA [id number] [address] [place] [address] [place] FASTING TIME 10 hrs Normal [facility] Comment on above: Order Comment: Speci men Type: BLOOD SPECIMEN Ordering Facility: [facility] Address: [address] [place] [address] Performed By: #### 2 4323-8 #### [facility] CLIA [id number] [address] [place] [address] [place] Triglyceride [Mass/Vol] 170 mg/dL High <150 [facility] Comment on above: Order Comment: Speci men Type: BLOOD SPECIMEN Ordering Facility: [facility] Address: [address] [place] [address] Result Comment: <150 mg/dL, Normal 150-199 mg/dL, Borderline high 200-499 mg/dL, High >499 mg/dL, Very high Performed By: #### 2 4323-8 #### [facility] CLIA [id number] [address] [place] [address] [place] 25(OH)D3 Jamiel-ncon 2023 25-hydroxyvitamin D3 [Mass/Vol] 20.8 ng/mL Low 31.0-80.0 [facility] Comment on above: Order Comment: Speci men Type: BLOOD SPECIMEN Ordering Facility: [facility] Address: [address] [place] [address] Result Comment: Clas sification of 25 [place] Vitamin D status: Deficiency/Insufficiency: < or = 30 ng/ml. Sufficiency/Optimal Levels: 31-80 ng/mL Toxicity: > 100 ng/mL. Test performed by chemiluminescent immunoassay. Performed By: #### 2 4323-8 #### [facility] CLIA [id number] [address] [place] [address] [place] CBC panel Auto (Bld)on 12-13 Erythrocyte distribution width (RBC) [Ratio] 14.9 % Normal 11.5-15.0 [facility] Comment on above: Order Comment: Speci men Type: BLOOD SPECIMENOrdering Facility: [facility] Address: [address] [place] [address] Performed By: #### 5 8410-2, 31677-4 ####[facility] [id number] [place] [address] [place] Hematocrit (Bld) [Volume fraction] 36.7 % Normal 36.0-46.0 [facility] Comment on above: Order Comment: Speci men Type: BLOOD SPECIMENOrdering Facility: [facility] Address: [address] [place] [address] Performed By: #### 5 8410-2, 41359-8 ####[facility] [id number] [place] [address] [place] Hemoglobin (Bld) [Mass/Vol] 12.1 g/dL Normal 11.5-15.5 [facility] Comment on above: Order Comment: Speci men Type: BLOOD SPECIMENOrdering Facility: [facility] Address: [address] [place] [address] Performed By: #### 5 8410-2, 93862-7 ####[facility] [id number] [place] [address] [place] MCH (RBC) [Entitic mass] 29.4 pg Normal 26.0-34.0 [facility] Comment on above: Order Comment: Speci men Type: BLOOD SPECIMENOrdering Facility: [facility] Address: [address] [place] [address] Performed By: #### 5 8410-2, 95419-2 ####[facility] [id number] [place] [address] [place] MCHC (RBC) [Mass/Vol] 33.0 g/dL Normal 30.5-36.0 [facility] Comment on above: Order Comment: Speci men Type: BLOOD SPECIMENOrdering Facility: [facility] Address: [address] [place] [address] Performed By: #### 5 8410-2, 25416-8 ####[facility]IA [id number] [place] [address] [place] MCV (RBC) [Entitic vol] 89.3 fL Normal 80.0-100.0 [facility] Comment on above: Order Comment: Speci men Type: BLOOD SPECIMENOrdering Facility: [facility] Address: [address] [place] [address] Performed By: #### 5 8410-2, 72654-6 ####[facility] [id number] [place] [address] [place] Nucleated RBC (Bld) [#/Vol] 10*3/uL Normal <0.01 [facility] Comment on above: Order Comment: Speci men Type: BLOOD SPECIMENOrdering Facility: [facility] Address: [address] [place] [address] Performed By: #### 5 8410-2, 58505-5 ####[facility]IA [id number] [address] [address] [place] Platelet mean volume (Bld) [Entitic vol] 9.8 fL Normal 9.0-12.7 [facility] Comment on above: Order Comment: Speci men Type: BLOOD SPECIMENOrdering Facility: [facility] Address: [address] [place] [address] Performed By: #### 5 8410-2, 03597-8 ####[facility]IA [id number] [place] [address] [place] Platelets (Bld) [#/Vol] 207 10*3/uL Normal 150-400 [facility] Comment on above: Order Comment: Speci men Type: BLOOD SPECIMENOrdering Facility: [facility] Address: [address] [place] [address] Performed By: #### 5 8410-2, 74777-8 ####[facility]IA [id number] [place] [address] [place] RBC (Bld) [#/Vol] 4.11 10*6/uL Normal 3.90-5.20 [facility] Comment on above: Order Comment: Speci men Type: BLOOD SPECIMENOrdering Facility: [facility] Address: [address] [place] [address] Performed By: #### 5 8410-2, 63047-3 ####[facility] LABIA [id number] [place] [id number] [place] WBC (Bld) [#/Vol] 6.31 10*3/uL Normal 3.70-11.00 [facility] Comment on above: Order Comment: Speci men Type: BLOOD SPECIMENOrdering Facility: [facility] Address: [address] [place] [address] Performed By: #### 5 8410-2, 67431-6 ####[facility]IA [id number] [place] [address] [place] Comprehensive metabolic 2000 panelon 12-14-2023 Albumin [Mass/Vol] 4.9 g/dL Normal 3.9-4.9 [facility] Comment on above: Order Comment: Speci men Type: BLOOD SPECIMEN Ordering Facility: [facility] Address: [address] [place] [address] Performed By: #### 2 4323-8 #### [facility] CLIA [id number] [address] [place] [address] [place] ALP [Catalytic activity/Vol] 39 U/L Normal 34-123 [facility] Comment on above: Order Comment: Speci men Type: BLOOD SPECIMEN Ordering Facility: [facility] Address: [address] [place] [address] Performed By: #### 2 4323-8 #### [facility] CLIA [id number] [address] [place] [address] [place] ALT [Catalytic activity/Vol] 24 U/L Normal 7-38 [facility] Comment on above: Order Comment: Speci men Type: BLOOD SPECIMEN Ordering Facility: [facility] Address: [address] [place] [address] Performed By: #### 2 4323-8 #### [facility] CLIA [id number] [address] [place] [address] [place] Anion gap [Moles/Vol] 14 mmol/L Normal 8-15 [facility] Comment on above: Order Comment: Speci men Type: BLOOD SPECIMEN Ordering Facility: [facility] Address: [address] [place] [address] Performed By: #### 2 4323-8 #### [facility] CLIA [id number] [address] [place] [address] [place] AST [Catalytic activity/Vol] 29 U/L Normal 13-35 [facility] Comment on above: Order Comment: Speci men Type: BLOOD SPECIMEN Ordering Facility: [facility] Address: [address] [place], [place] [address] Performed By: #### 2 4323-8 #### [facility] CLIA [id number] [address] [place] [address] [place] Bilirubin [Mass/Vol] 0.3 mg/dL Normal 0.2-1.3 [facility] Comment on above: Order Comment: Speci men Type: BLOOD SPECIMEN Ordering Facility: [facility] Address: [address] [place] [address] Performed By: #### 2 4323-8 #### [facility] CLIA [id number] [address] [place] [address] [place] Calcium [Mass/Vol] 9.6 mg/dL Normal 8.5-10.2 [facility] Comment on above: Order Comment: Speci men Type: BLOOD SPECIMEN Ordering Facility: [facility] Address: [address] [place] [address] Performed By: #### 2 4323-8 #### [facility] CLIA [id number] [address] [place] [address] [place] Chloride [Moles/Vol] 100 mmol/L Normal 98-107 [facility] Comment on above: Order Comment: Speci men Type: BLOOD SPECIMEN Ordering Facility: [facility] Address: [address] [place] [address] Performed By: #### 2 4323-8 #### [facility] CLIA [id number] [address] [place], [place] [address] [place] CO2 [Moles/Vol] 22 mmol/L Normal 22-30 [facility] Comment on above: Order Comment: Speci men Type: BLOOD SPECIMEN Ordering Facility: [facility] Address: [address] [place], [place] [address] Performed By: #### 2 4323-8 #### [facility] CLIA [id number] [address] [place] [address] [place] Creatinine [Mass/Vol] 1.25 mg/dL High 0.58-0.96 [facility] Comment on above: Order Comment: Mike gan Type: BLOOD SPECIMEN Ordering Facility: [facility] Address: [address] [place] [address] Performed By: #### 2 4323-8 #### [facility] CLIA [id number] [address] [place] [address] [place] Creatinine and Glomerular filtration rate.predicted panel (S/P/Bld) 55 mL/min/1.73m??? Low >=60 [facility] Comment on above: Order Comment: Mike gan Type: BLOOD SPECIMEN Ordering Facility: [facility] Address: [address] [place] [address] Result Comment: Ann mated Glomerular Filtration Rate (eGFR) is calculated using the 2020 CKD-EPI creatinine equation. This equation utilizes serum creatinine, sex, and age as parameters. The creatinine assay has traceable calibration to isotope dilution-mass spectrometry. Refer to KDIGO guidelines for clinical interpretation. In patients with unstable renal function, e.g. those with acute kidney injury, the eGFR may not accurately reflect actual GFR. Performed By: #### 2 4323-8 #### [facility] CLIA [id number] [address] [place] [address] [place] Glucose [Mass/Vol] 98 mg/dL Normal 74-99 [facility] Comment on above: Order Comment: Mike gan Type: BLOOD SPECIMEN Ordering Facility: [facility] Address: [address] [place] [address] Result Comment: The [place] Diabetes Association (ADA) provides guidance for cutoff values for fasting glucose and random glucose. The ADA defines fasting as no caloric intake for at least 8 hours. Fasting plasma glucose results between 100 to 125 mg/dL indicate increased risk for diabetes (prediabetes). Fasting plasma glucose results greater than or equal to 126 mg/dL meet the criteria for diagnosis of diabetes. In the absence of unequivocal hyperglycemia, results should be confirmed by repeat testing. In a patient with classic symptoms of hyperglycemia or hyperglycemic crisis, random plasma glucose results greater than or equal to 200 mg/dL meet the criteria for diagnosis of diabetes. Reference: Standards of Medical Care in Diabetes 2016, [place] Diabetes Association. Diabetes Care. 2016.39(Suppl 1). Performed By: #### 2 4323-8 #### [facility] CLIA [id number] [address] [place] [address] [place] Potassium [Moles/Vol] 4.3 mmol/L Normal 3.7-5.1 [facility] Comment on above: Order Comment: Speci men Type: BLOOD SPECIMEN Ordering Facility: [facility] Address: [address] [place] [address] Performed By: #### 2 4323-8 #### [facility] CLIA [id number] [address] [place] [address] [place] Protein [Mass/Vol] 7.5 g/dL Normal 6.3-8.0 [facility] Comment on above: Order Comment: Speci men Type: BLOOD SPECIMEN Ordering Facility: [facility] Address: [address] [place] [address] Performed By: #### 2 4323-8 #### [facility] CLIA [id number] [address] [place] [address] [place] Sodium [Moles/Vol] 136 mmol/L Normal 136-144 [facility] Comment on above: Order Comment: Speci men Type: BLOOD SPECIMEN Ordering Facility: [facility] Address: [address] [place] [address] Performed By: #### 2 4323-8 #### [facility] CLIA [id number] [address] [place] [address] [place] Urea nitrogen [Mass/Vol] 32 mg/dL High 7-21 [facility] Comment on above: Order Comment: Speci men Type: BLOOD SPECIMEN Ordering Facility: [facility] Address: [address] [place] [address] Performed By: #### 2 4323-8 #### [facility] CLIA [id number] [address] [place] [address] [place] Ferritin SerPl-mCncon 2023 Ferritin [Mass/Vol] 84.7 ng/mL Normal 14.7-205.1 [facility] Comment on above: Order Comment: Speci men Type: BLOOD SPECIMEN Ordering Facility: [facility] Address: [address] [place] [address] Performed By: #### 2 4323-8 #### [facility] CLIA [id number] [address] [place] [address] [place] Folate SerPl-mCncon 12-14-19 Folate [Mass/Vol] 16.1 ng/mL Normal >4.7 [facility] Comment on above: Order Comment: Speci men Type: BLOOD SPECIMEN Ordering Facility: [facility] Address: [address] [place] [address] Performed By: #### 2 4321-2 #### [facility] CLIA [id number] [address] [place] [address] [place] HbA1c (Bld)on 12-14-2023 Average glucose Estimated from glycated hemoglobin (Bld) [Mass/Vol] 94 mg/dL Normal [facility] Comment on above: Order Comment: Speci men Type: BLOOD SPECIMENOrdering Facility: [facility] Address: [address] [place] [address] Result Comment: eAG: (Estimated average glucose) is a calculated value from HgbA1c and is public health representative of the average blood glucose level in the last 2-3 month period. Performed By: #### 5 8410-2, 32801-0 ####[facility] [id number] [place] [address] [place] HbA1c (Bld) [Mass fraction] 4.9 % Normal 4.3-5.6 [facility] Comment on above: Order Comment: Speci men Type: BLOOD SPECIMENOrdering Facility: [facility] Address: [address] [place] [address] Result Comment: [place] Diabetes Association guidelines indicate that patients with HgbA1c in the range 5.7-6.4% are at increased risk for development of diabetes, and intervention by lifestyle modification may be beneficial. HgbA1c greater or equal to 6.5% is considered diagnostic of diabetes. Performed By: #### 5 8410-2, 24450-7 ####[facility] [id number] [place] [address] [place] Iron and Iron binding capaci ty panelon 12-14-2023 Iron [Mass/Vol] 68 ug/dL Normal 41-186 [facility] Comment on above: Order Comment: Speci men Type: BLOOD SPECIMEN Ordering Facility: [facility] Address: [address] [place] [address] Performed By: #### 2 4323-8 #### [facility] CLIA [id number] [address] [place] [address] [place] Iron binding capacity [Mass/Vol] 504 ug/dL High 232-386 [facility] Comment on above: Order Comment: Speci men Type: BLOOD SPECIMEN Ordering Facility: [facility] Address: [address] [place] [address] Performed By: #### 2 4323-8 #### [facility] CLIA [id number] [address] [place] [address] [place] Iron/TIBC [Molar ratio] 13.5 % Low 15.0-57.0 [facility] Comment on above: Order Comment: Speci men Type: BLOOD SPECIMEN Ordering Facility: [facility] Address: [address] [place] [address] Performed By: #### 2 4323-8 #### [facility] CLIA [id number] [address] [place] [address] [place] PTH-Intact SerPl-ncon 07-0 Parathyrin.intact [Mass/Vol] 116 pg/mL High 15-65 [facility] Comment on above: Order Comment: Speci malik Type: BLOOD SPECIMEN Ordering Facility: [facility] Address: [address] [place] [address] Performed By: #### 2 4321-2 #### [facility] CLIA [id number] [address] [place] [address] [place] TSH SerPl-aCncon 12-14-2023 TSH Qn 1.170 m[IU]/L Normal 0.270-4.200 [facility] Comment on above: Order Comment: Specclarence gan Type: BLOOD SPECIMEN Ordering Facility: [facility] Address: [address] [place] [address] Result Comment: If t he patient is , TSH reference range varies by gestational period: First Trimester (weeks 9-12): 0.180-2.990 mIU/L Second Trimester: 0.110-3.980 mIU/L Third Trimester: 0.480-4.710 mIU/L Rob Freeman et al. A Practical Approach for the Verifications and Determination of Site- and Trimester-Specific Reference Intervals for Thyroid Function tests in . Thyroid, 2019:29:3:412-420. Jai Becker, et al. 2017 Guidelines of the [place] Thyroid Association for the Diagnosis and Management of Thyroid Disease during and the . Thyroid, 2017:27:3:315-389. Performed By: #### 2 4323-8 #### [facility] CLIA [id number] [address] [place] [address] [place] VITAMIN B1 (THIAMINE), WHOLE BLOODon 12-14-2023 Thiamine (Bld) [Moles/Vol] 268.6 nmol/L High 84.3-213.3 [facility] Comment on above: Order Comment: Mike gan Type: BLOOD SPECIMEN Ordering Facility: [facility] Address: [address] [place] [address] Result Comment: This assay measures the concentration of thiamine diphosphate (TDP), the primary active form of vitamin B1. Approximately 90 percent of vitamin B1 present in whole blood is TDP. Thiamine and thiamine monophosphate, which comprise the remaining 10 percent, are not measured. This test was developed and its performance characteristics determined by [facility] ([facility]). It has not been cleared or approved by the FDA. [facility] is regulated under CLIA as qualified to perform high-complexity testing. This test is used for clinical purposes. It should not be regarded as investigational or for research. Performed By: #### 2 4321-2 #### [facility] CLIA [id number] [address] [place] [address] [place] Vit A SerPl-mCncon Retinol [Mass/Vol] 1.11 mg/L Normal 0.30-1.20 [facility] Comment on above: Order Comment: Speci men Type: BLOOD SPECIMEN Ordering Facility: [facility] Address: [address] [place] [address] Result Comment: This test was developed and its performance characteristics determined by [facility] [place] ([facility]). It has not been cleared or approved by the FDA. [facility] is regulated under CLIA as qualified to perform high-complexity testing. This test is used for clinical purposes. It should not be regarded as investigational or for research. Performed By: #### 2 4323-8 #### [facility] CLIA [id number] [address] [place] [address] [place] Vit B12 SerPl-mCncon 024 Cobalamin (Vitamin B12) [Mass/Vol] 528 pg/mL Normal 232-1245 [facility] Comment on above: Order Comment: Speci men Type: BLOOD SPECIMEN Ordering Facility: [facility] Address: [address] [place] [address] Performed By: #### 2 4321-2 #### [facility] CLIA [id number] [address] [place] [address] [place] Zinc SerPl-mCncon 12-14-2023 Zinc [Mass/Vol] 70 ug/dL Normal 60-120 [facility] Comment on above: Order Comment: Speci men Type: BLOOD SPECIMEN Ordering Facility: [facility] Address: [address] [place] [address] Result Comment: This test was developed and its performance characteristics determined by [facility] ([facility] It has not been cleared or approved by the FDA. [facility] is regulated under CLIA as qualified to perform high-complexity testing. This test is used for clinical purposes. It should not be regarded as investigational or for research. Performed By: #### 2 4321-2 #### [facility] CLIA [id number] [address] [place] [address] OF [facility] CNOVon 12-06-2023 CNOV Office Visit ([facility] ) MARIIA DAVIDSON ([id number]) 1980 F Date Time Provider Department 12/06/23 9:00 AM FRANTZ ORELLANA [facility] During your visit today, we recorded the following information about you: Temperature Pulse Respiration Blood pressure 98 degrees 91/minute 18/minute 142/86 Weight Height 122.5 kg 1.753 m Frantz Orellana MD 12/06/2023 9:41 AM Signed Pulmonary Consult Patient Name: Mariia Davidson PRIMARY CARE PHYSICIAN: Karina Gonzalez MD REQUESTING PHYSICIAN: Ms Gaviria REASON FOR CONSULT: pre-op clearance CHIEF COMPLAINT: pre-op clearance HISTORY OF PRESENT ILLNESS: Mariia Davidson is a 42 year old white woman with a past medical history significant for obesity, pre-diabetes, HTN, HL, SNYDER, hypothyroidism, CRVO, nephrolithiasis, and bipolar seen in the office today for the above reason. Mariia is contemplating on getting bariatric surgery this year and this will be gastric sleeve one. In view of this, she is here for clearance. On a flat surface, she can walk for 2-3 miles without issues. She can also do 2-3 flights of stairs without issues. She does not work out on a daily basis. However, she walks in her neighborhood regularly. She denies any cardiopulmonary symptoms like chronic cough or sputum or chest pain or wheezing or exertional symptoms or leg swelling or any other concerning symptoms. She has never had a sleep study done. She has continued to gain pounds and in the last year has gained around 50 pounds. She has tried diet, exercises, and some meds without any benefit. [place] Sleepiness Scale: Sitting and readin Watching TV: 0 Sitting, inactive in a public place (e.g. a theatre or a meeting): 0 As a passenger in a car for an hour without a break: 0 Lying down to rest in the afternoon when circumstances permit: 1 Sitting and talking to someone: 0 Sitting quietly after a lunch without alcohol: 1 In a car, while stopped for a few minutes in the traffic: 0 Total: 2 SH: Non-smoker, lives with and three kids (12. 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 CARDIOVASCULAR: negative for SOB, chest pain on exertion, PND, orthopnea, leg swelling or palpitations. GASTROINTESTINAL: negative for nausea, vomiting, pain abdomen, acid reflux issues, abdominal discomfort, loose stools or constipation. No blood in stools or black stools; no difficulty swallowing or aspiration symptoms MUSCULOSKELETAL: negative for joint pain or joint swelling, back pain or muscle pain. NEUROLOGIC:Negative for focal numbness or weakness, headaches, dizziness or syncope. SKIN:Negative for lesions, rash, and itching. No new onset symptoms PSYCHIATRIC: Negative for sleep disturbance, mood disorder and recent psychosocial stressors HEMATOLOGIC/LYMPHATIC /IMMUNOLOGIC:Negative for cold or heat intolerance, polyuria, polydipsia and goiter. 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 PAST MEDICAL HISTORY Diagnosis Date bipolar 2 Breast disorder thick breast tissues with mammogram Central vein occlusion of retina Chronic diarrhea HTN (hypertension) Hypothyroidism Nephrolithiasis Non-alcoholic fatty liver disease Obesity depression 2011,2013 Pre-diabetes Preeclampsia 2011 Rh incompatibility Secondary anovulatory infertility PAST SURGICAL HISTORY Procedure Laterality Date DELIVERY ONLY 07/02/2015 , low transverse SECTION HX 2011,2012 CHOLECYSTECTOMY HX 2022 LITHOTRIPSY XTRCORP SHOCK WAVE FAMILY HISTORY Problem Relation Age of Onset None Mother Hypertension Father Cancer Maternal Grandmother Social History Tobacco Use Smoking status: Never Smokeless tobacco: Never Vaping Use Vaping Use: Never used Substance Use Topics Alcohol use: Not Currently Alcohol/week: 2.0 standard drinks of alcohol Types: 2 Glasses of wine per week Drug use: No ALLERGIES: ALLERGIES No Known Allergies CURRENT OUTPATIENT MEDICATIONS: amLODIPine (NORVASC) 5 mg tablet Take 5 mg by mouth once daily. FENOFIBRATE MICRONI (more content not included)... Normal [facility] US ABD RIGHT UPPER QUADRANTo n 11-25-2023 US ABD RIGHT UPPER QUADRANT * * *Final Report* * * DATE OF EXAM: Nov 25 2023 7:45AM WRU 1032 - US ABD RIGHT UPPER QUADRANT / PROCEDURE REASON: multiple diagnoses * * * * Physician Interpretation * * * * EXAMINATION: RIGHT UPPER QUADRANT ULTRASOUND CLINICAL HISTORY: Preop bariatric surgery TECHNIQUE: Sonography of the right upper quadrant was performed. Images were obtained and stored in a permanent archive. MQ: URUQ_2 COMPARISON: None. RESULT: Pancreas: Normal sonographic appearance. Portions obscured: tail Liver: Echotexture: Normal, homogeneous. Echogenicity: Mildly diffusely increased echogenicity and increased attenuation of sound Surface contour: Smooth Lesions: None. Biliary: No intrahepatic biliary duct dilation. CBD: 0.8 cm at the hilum. Gallbladder: Prior cholecystectomy Right and left Kidney: No hydronephrosis.. Question nephrocalcinosis bilaterally. Left lower pole stone of 1.8 cm Ascites: None. The spleen is 15.7 cm in length. Enlarged IMPRESSION: Fatty liver. Enlarged spleen. Nephrolithiasis on the left. Possible bilateral nephrocalcinosis. Mildly dilated common duct. Prior cholecystectomy Visualization is somewhat suboptimal due to patient build Slip Cover Seamstress: [facility] Transcribe Date/Time: Nov 28 2023 11:12A Dictated by : SONI SHEIKH MD This examination was interpreted and the report reviewed and electronically signed by: SONI SHEIKH MD on Nov 28 2023 11:15AM EST [id number] Normal [facility] US ABD SPLEEN -NBon 11-25-19 US ABD SPLEEN -NB * * *Final Report* * * DATE OF EXAM: Nov 25 2023 7:45AM WRU 1232 - US ABD SPLEEN -NB / PROCEDURE REASON: multiple diagnoses * * * * Physician Interpretation * * * * EXAMINATION: RIGHT UPPER QUADRANT ULTRASOUND CLINICAL HISTORY: Preop bariatric surgery TECHNIQUE: Sonography of the right upper quadrant was performed. Images were obtained and stored in a permanent archive. MQ: URUQ_2 COMPARISON: None. RESULT: Pancreas: Normal sonographic appearance. Portions obscured: tail Liver: Echotexture: Normal, homogeneous. Echogenicity: Mildly diffusely increased echogenicity and increased attenuation of sound Surface contour: Smooth Lesions: None. Biliary: No intrahepatic biliary duct dilation. CBD: 0.8 cm at the hilum. Gallbladder: Prior cholecystectomy Right and left Kidney: No hydronephrosis.. Question nephrocalcinosis bilaterally. Left lower pole stone of 1.8 cm Ascites: None. The spleen is 15.7 cm in length. Enlarged IMPRESSION: Fatty liver. Enlarged spleen. Nephrolithiasis on the left. Possible bilateral nephrocalcinosis. Mildly dilated common duct. Prior cholecystectomy Visualization is somewhat suboptimal due to patient build Slip Cover Seamstress: [facility] Transcribe Date/Time: Nov 28 2023 11:12A Dictated by : SONI SHEIKH MD This examination was interpreted and the report reviewed and electronically signed by: SONI SHEIKH MD on Nov 28 2023 11:15AM EST [id number] N Normal [facility] CNPNon 09-20-2023 CNPN Telephone (AGGENS4) MARIIA DAVIDSON ([id number]) 1980 F Date Time Provider Department 09/20/23 ROSALIA GAVIRIA AGGENS4 During your visit today, we recorded the following information about you: Juan Manuel Harrington 09/20/2023 11:26 AM Signed Called patient she has no bariatric coverage excluded from policy LVM can cancelled her up coming apt Allergies As of Date: 09/20/2023 (No Known Allergies) Date Reviewed: 07/19/2022 Reviewed by: Mariya Dc, CT - Fully Assessed Prescriptions as of 09/20/2023 - levothyroxine 50 mcg cap Take 50 mcg by mouth daily before breakfast. - letrozole (FEMARA) 2.5 mg tablet Take 1 tablet by mouth once daily. Cycle days 3-7 - triamterene-hydroCHLO ROthiazide (MAXZIDE-25) 37.5-25 mg per tablet - colestipol HCl (COLESTIPOL ORAL) Take by mouth. - lurasidone (LATUDA) 80 mg tablet Take by mouth. - sertraline HCl (ZOLOFT ORAL) Take by mouth. - amitriptyline HCl (AMITRIPTYLINE ORAL) Take by mouth. - bisoprolol (ZEBETA) 10 mg tablet Take 10 mg by mouth once daily. - MEDICATION, NON-DATABASE Neurtec - dulaglutide (TRULICITY SUBCUTANEOUS) Inject subcutaneously. - tizanidine HCl (TIZANIDINE ORAL) Take by mouth. - lithium carbonate 300 mg tablet Take 900 mg by mouth twice daily. - metFORMIN (GLUCOPHAGE) 500 mg tablet Take 500 mg by mouth twice daily with meals. - #92-IRON-FA #8-PS-DHA ORAL Take by mouth once daily. - clonazePAM (KLONOPIN) 2 mg tablet Take 1 mg by mouth twice daily as needed. Problem List As Of Date 09/20/2023 Noted Resolved Bipolar disorder (HCC) [F31.9] 03/31/2015 Ultrasound scan to check weight, previous*03/31/2015 05/28/2016 Previous section [Z98.891] 03/31/2015 05/28/2016 Secondary anovulatory infertility [N97.0] 05/28/2016 Secondary oligomenorrhea [N91.4] 05/28/2016 Class 2 obesity with body mass index (BMI) of 3*10/30/2021 Encounter Status:Closed by JUAN MANUEL HARRINGTON on 09/20/23 [facility] CNPNon 08-29-2023 CNPN Telephone (AGGENS4) MARIIA DAVIDSON ([id number]) 1980 F Date Time Provider Department 08/29/23 ROSALIA GAVIRIA AGGENS4 During your visit today, we recorded the following information about you: Mirna Mariaelena Castro 08/29/2023 1:22 PM Signed Called LV- She is a Black pathway. She will need last 6 months of her outside Psych Dr notes with last 6 months of prescribed meds also. Roya Posey MA 08/29/2023 1:51 PM Signed Spoke to patient to let her know about the message below, she states she will call her psych doctor and get records sent to us. Michela Quiles MA, MA 09/12/2023 10:31 AM Signed [facility] records scanned in for review. Micheal Jensen MA Allergies As of Date: 08/29/2023 (No Known Allergies) Date Reviewed: 07/19/2022 Reviewed by: Mariya Dc CT - Fully Assessed Reason for Visit: Patient Update [1234] Cmt: Benefits update- pathway Black Prescriptions as of 09/12/2023 - levothyroxine 50 mcg cap Take 50 mcg by mouth daily before breakfast. - letrozole (FEMARA) 2.5 mg tablet Take 1 tablet by mouth once daily. Cycle days 3-7 - triamterene-hydroCHLO ROthiazide (MAXZIDE-25) 37.5-25 mg per tablet - colestipol HCl (COLESTIPOL ORAL) Take by mouth. - lurasidone (LATUDA) 80 mg tablet Take by mouth. - sertraline HCl (ZOLOFT ORAL) Take by mouth. - amitriptyline HCl (AMITRIPTYLINE ORAL) Take by mouth. - bisoprolol (ZEBETA) 10 mg tablet Take 10 mg by mouth once daily. - MEDICATION, NON-DATABASE Neurtec - dulaglutide (TRULICITY SUBCUTANEOUS) Inject subcutaneously. - tizanidine HCl (TIZANIDINE ORAL) Take by mouth. - lithium carbonate 300 mg tablet Take 900 mg by mouth twice daily. - metFORMIN (GLUCOPHAGE) 500 mg tablet Take 500 mg by mouth twice daily with meals. - #92-IRON-FA #8-PS-DHA ORAL Take by mouth once daily. - clonazePAM (KLONOPIN) 2 mg tablet Take 1 mg by mouth twice daily as needed. Problem List As Of Date 08/29/2023 Noted Resolved Bipolar disorder (HCC) [F31.9] 03/31/2015 Ultrasound scan to check weight, previous*03/31/2015 05/28/2016 Previous section [Z98.891] 03/31/2015 05/28/2016 Secondary anovulatory infertility [N97.0] 05/28/2016 Secondary oligomenorrhea [N91.4] 05/28/2016 Class 2 obesity with body mass index (BMI) of 3*10/30/2021 Encounter Status:Closed by MARIAELENA BARBOUR on 08/29/23 [facility] CNPN Telephone (AGGENS4) MARIIA DAVIDSON ([id number]) 1980 F Date Time Provider Department 08/29/23 [facility] PROVIDER AGGENS4 During your visit today, we recorded the following information about you: Yao Haines 08/29/2023 1:25 PM Signed Pt. Update 08.29.23-bariatric portal call Allergies As of Date: 08/29/2023 (No Known Allergies) Date Reviewed: 07/19/2022 Reviewed by: Mariya Dc, CT - Fully Assessed Prescriptions as of 08/29/2023 - levothyroxine 50 mcg cap Take 50 mcg by mouth daily before breakfast. - letrozole (FEMARA) 2.5 mg tablet Take 1 tablet by mouth once daily. Cycle days 3-7 - triamterene-hydroCHLO ROthiazide (MAXZIDE-25) 37.5-25 mg per tablet - colestipol HCl (COLESTIPOL ORAL) Take by mouth. - lurasidone (LATUDA) 80 mg tablet Take by mouth. - sertraline HCl (ZOLOFT ORAL) Take by mouth. - amitriptyline HCl (AMITRIPTYLINE ORAL) Take by mouth. - bisoprolol (ZEBETA) 10 mg tablet Take 10 mg by mouth once daily. - MEDICATION, NON-DATABASE Neurtec - dulaglutide (TRULICITY SUBCUTANEOUS) Inject subcutaneously. - tizanidine HCl (TIZANIDINE ORAL) Take by mouth. - lithium carbonate 300 mg tablet Take 900 mg by mouth twice daily. - metFORMIN (GLUCOPHAGE) 500 mg tablet Take 500 mg by mouth twice daily with meals. - #92-IRON-FA #8-PS-DHA ORAL Take by mouth once daily. - clonazePAM (KLONOPIN) 2 mg tablet Take 1 mg by mouth twice daily as needed. Problem List As Of Date 08/29/2023 Noted Resolved Bipolar disorder (HCC) [F31.9] 03/31/2015 Ultrasound scan to check weight, previous*03/31/2015 05/28/2016 Previous section [Z98.891] 03/31/2015 05/28/2016 Secondary anovulatory infertility [N97.0] 05/28/2016 Secondary oligomenorrhea [N91.4] 05/28/2016 Class 2 obesity with body mass index (BMI) of 3*10/30/2021 Encounter Status:Closed by YAO HAINES on 08/29/23 [facility] CNPN Telephone ([id number]) LETYMARIIA [place] ([id number]) 1980 F Date Time Provider Department 08/29/23 [facility] PROVIDER [id number] During your visit today, we recorded the following information about you: Yao Haines 08/29/2023 12:53 PM Signed Pt. Update 08.29.23- Bariatric portal call left message as well as sent adelia. Allergies As of Date: 08/29/2023 (No Known Allergies) Date Reviewed: 07/19/2022 Reviewed by: Mariya Dc, CT - Fully Assessed Reason for Visit: Patient Update [1234] Prescriptions as of 08/29/2023 - levothyroxine 50 mcg cap Take 50 mcg by mouth daily before breakfast. - letrozole (FEMARA) 2.5 mg tablet Take 1 tablet by mouth once daily. Cycle days 3-7 - triamterene-hydroCHLO ROthiazide (MAXZIDE-25) 37.5-25 mg per tablet - colestipol HCl (COLESTIPOL ORAL) Take by mouth. - lurasidone (LATUDA) 80 mg tablet Take by mouth. - sertraline HCl (ZOLOFT ORAL) Take by mouth. - amitriptyline HCl (AMITRIPTYLINE ORAL) Take by mouth. - bisoprolol (ZEBETA) 10 mg tablet Take 10 mg by mouth once daily. - MEDICATION, NON-DATABASE Neurtec - dulaglutide (TRULICITY SUBCUTANEOUS) Inject subcutaneously. - tizanidine HCl (TIZANIDINE ORAL) Take by mouth. - lithium carbonate 300 mg tablet Take 900 mg by mouth twice daily. - metFORMIN (GLUCOPHAGE) 500 mg tablet Take 500 mg by mouth twice daily with meals. - #92-IRON-FA #8-PS-DHA ORAL Take by mouth once daily. - clonazePAM (KLONOPIN) 2 mg tablet Take 1 mg by mouth twice daily as needed. Problem List As Of Date 08/29/2023 Noted Resolved Bipolar disorder (HCC) [F31.9] 03/31/2015 Ultrasound scan to check weight, previous*03/31/2015 05/28/2016 Previous section [Z98.891] 03/31/2015 05/28/2016 Secondary anovulatory infertility [N97.0] 05/28/2016 Secondary oligomenorrhea [N91.4] 05/28/2016 Class 2 obesity with body mass index (BMI) of 3*10/30/2021 Encounter Status:Closed by YAO HAINES on 08/29/23 Normal [facility] STREP A MOLECULAR (POC)on Procedural Control Valid [facility] Strep A (POCT) Positive Abnormal Negative [facility] Absolute lymphocyte counton 01-29-2022 Lymphocytes Auto (Unsp spec) [#/Vol] 1.42 10*3/uL 0.83-4.51 [facility] Work Phone: Basophil percentageon 2021 Basophils/100 WBC (Bld) 0.7 % 0-1 [facility] Work Phone: Bilirubin [Mass/Vol] 0.50 mg/dL 0.20-1.00 [facility] Work Phone: Comment on above: For patients on eltr ombopag therapy, use of Dimension [place] TBIL is not recommended. Chloride [Moles/Vol] 108 mmol/L 98-107 [facility] Work Phone: Eosinophils/100 WBC (Bld) 2.2 % 0-5 [facility] Work Phone: Glucose [Mass/Vol] 91 mg/dL 74-106 [facility] Work Phone: Neutrophils (Bld) [#/Vol] 3.5 10*3/uL 2.0-7.7 [facility] Work Phone: Neutrophils/100 WBC (Bld) 62.7 % 47-70 [facility] Work Phone: Potassium [Moles/Vol] 3.8 mmol/L 3.5-5.1 [facility] Work Phone: Protein [Mass/Vol] 8.1 g/dL 6.4-8.2 [facility] Work Phone: Sodium [Moles/Vol] 138 mmol/L 136-145 [facility] Work Phone: WBC (Bld) [#/Vol] 5.5 10*3/uL 4.4-11.0 [facility] Work Phone: Blood erythrocytes count (nu mber/volume)on 01-29-2022 RBC (Bld) [#/Vol] 4.22 10*6/uL 4.2-5.4 [facility] Work Phone: Blood hemoglobin measurement (mass/volume)on 01-29-2022 Hemoglobin (Bld) [Mass/Vol] 11.3 g/dL 12.0-15.0 [facility] Work Phone: Blood lymphocytes/100 leukoc yteson 01-29-2022 Lymphocytes/100 WBC (Bld) 25.7 % 19-41 [facility] Work Phone: Blood monocytes/100 leukocyt eson 01-29-2022 Monocytes/100 WBC (Bld) 8.3 % 0-10 [facility] Work Phone: Blood platelet mean volumeon 01-29-2022 Platelet mean volume (Bld) [Entitic vol] 8.7 fL 6.2-12.0 [facility] Work Phone: Determination of erythrocyte mean corpuscular volume (MCV)on 01-29-2022 MCV (RBC) [Entitic vol] 85.1 fL 81-99 [facility] Work Phone: Hematocrit Auto (Bld) [Volum e fraction]on 01-29-2022 Hematocrit (Bld) [Volume fraction] 35.9 % 37-47 [facility] Work Phone: Laboratory - Chemistry and C hemistry - challengeon 01-29-2022 ALP [Catalytic activity/Vol] 144 U/L 45-117 [facility] Work Phone: ALT [Catalytic activity/Vol] 42 U/L 13-56 [facility] Work Phone: CO2 [Moles/Vol] 23.0 mmol/L 21.0-32.0 [facility] Work Phone: Globulin (S) [Mass/Vol] 4.5 g/dL 2.2-4.2 [facility] Work Phone: Magnesium [Mass/Vol] 2.2 mg/dL 1.6-2.6 [facility] Work Phone: Urea nitrogen/Creatinine [Mass ratio] 9.4 mg/mg 10-20 [facility] Work Phone: Laboratory - Hematology and Cell countson 01-29-2022 Erythrocyte distribution width (RBC) [Entitic vol] 40.8 fL 35.1-43.9 [facility] Work Phone: Erythrocyte distribution width (RBC) [Ratio] 13.2 % 11.6-14.6 [facility] Work Phone: Immature granulocytes/100 WBC (Bld) 0.400 % 0.0-0.9 [facility] Work Phone: Comment on above: IG% - Immature Granu locytes (promyelocytes, myelocytes and metamyelocytes) > 1% indicates that a LEFT SHIFT is Present. MCH (RBC) [Entitic mass] 26.8 pg 27.0-32.0 [facility] Work Phone: Nucleated RBC/100 WBC (Bld) [Ratio] 0 % 0-5 [facility] Work Phone: MCHC Auto (RBC) [Mass/Vol]on 01-29-2022 MCHC (RBC) [Mass/Vol] 31.5 g/dL 32-36 [facility] Work Phone: No Panel Informationon 01-29 Estimated GFR (MDRD) Amer 66 mL/min >60 [facility] Work Phone: Comment on above: GFR Calc Estimated GFR (MDRD) Non-Af Amer 54 mL/min >60 [facility] Work Phone: Comment on above: Non- GFR Calc Platelets bldon 01-29-2022 Platelets (Bld) [#/Vol] 253 10*3/uL 150-450 [facility] Work Phone: Serum or plasma albumin alexia urement (mass/volume)on 01-29-2022 Albumin [Mass/Vol] 3.6 g/dL 3.2-5.0 [facility] Work Phone: Serum or plasma albumin/glob ulin mass ratioon 01-29-2022 Albumin/Globulin [Mass ratio] 0.8 {ratio} 0.9-2.4 [facility] Work Phone: Serum or plasma calcium alexia urement (mass/volume)on 01-29-2022 Calcium [Mass/Vol] 9.5 mg/dL 8.5-10.1 [facility] Work Phone: Serum or plasma creatinine m easurement (mass/volume)on 01-29-2022 Creatinine [Mass/Vol] 1.17 mg/dL 0.55-1.02 [facility] Work Phone: Comment on above: The validity of the calculated GFR & GFRAA in patients over 70 years has not been determined. Clinical correlation is essential. Serum or plasma urea nitroge n measurement (mass/volume)on 01-29-2022 Urea nitrogen [Mass/Vol] 11 mg/dL 7-18 [facility] Work Phone: Thin prep Papanicolaou smear with manual screeningon 01-29-2022 Thin prep Papanicolaou smear with manual screening 27 U/L 15-37 [facility] Work Phone: Thin prep Papanicolaou smear with manual screening 7 5-15 [facility] Work Phone: Basophil percentageon 2021 Bilirubin [Mass/Vol] 0.50 mg/dL 0.20-1.00 [facility] Work Phone: Comment on above: For patients on eltr ombopag therapy, use of Dimension [place] TBIL is not recommended. Chloride [Moles/Vol] 109 mmol/L 98-107 [facility] Work Phone: Glucose [Mass/Vol] 112 mg/dL 74-106 [facility] Work Phone: Comment on above: Fasting Glucose resu lt from 100 to 125 mg/dL suggests IMPAIRED HOMEOSTASIS per A.D.A. criteria. Potassium [Moles/Vol] 3.6 mmol/L 3.5-5.1 [facility] Work Phone: Protein [Mass/Vol] 7.3 g/dL 6.4-8.2 [facility] Work Phone: Sodium [Moles/Vol] 140 mmol/L 136-145 [facility] Work Phone: WBC (Bld) [#/Vol] 2.9 10*3/uL 4.4-11.0 [facility] Work Phone: Blood erythrocytes count (nu mber/volume)on 12-30-2021 RBC (Bld) [#/Vol] 3.91 10*6/uL 4.2-5.4 [facility] Work Phone: Blood hemoglobin measurement (mass/volume)on 12-30-2021 Hemoglobin (Bld) [Mass/Vol] 11.2 g/dL 12.0-15.0 [facility] Work Phone: Blood platelet mean volumeon 12-30-2021 Platelet mean volume (Bld) [Entitic vol] 8.8 fL 6.2-12.0 [facility] Work Phone: Determination of erythrocyte mean corpuscular volume (MCV)on 12-30-2021 MCV (RBC) [Entitic vol] 89.5 fL 81-99 [facility] Work Phone: Hematocrit Auto (Bld) [Volum e fraction]on 12-30-2021 Hematocrit (Bld) [Volume fraction] 35.0 % 37-47 [facility] Work Phone: Laboratory - Chemistry and C hemistry - challengeon 12-30-2021 ALP [Catalytic activity/Vol] 109 U/L 45-117 [facility] Work Phone: ALT [Catalytic activity/Vol] 40 U/L 13-56 [facility] Work Phone: CO2 [Moles/Vol] 23.0 mmol/L 21.0-32.0 [facility] Work Phone: Globulin (S) [Mass/Vol] 3.6 g/dL 2.2-4.2 [facility] Work Phone: Urea nitrogen/Creatinine [Mass ratio] 7.1 mg/mg 10-20 [facility] Work Phone: Laboratory - Hematology and Cell countson 12-30-2021 Erythrocyte distribution width (RBC) [Entitic vol] 46.2 fL 35.1-43.9 [facility] Work Phone: Erythrocyte distribution width (RBC) [Ratio] 14.4 % 11.6-14.6 [facility] Work Phone: MCH (RBC) [Entitic mass] 28.6 pg 27.0-32.0 [facility] Work Phone: MCHC Auto (RBC) [Mass/Vol]on 12-30-2021 MCHC (RBC) [Mass/Vol] 32.0 g/dL 32-36 [facility] Work Phone: No Panel Informationon 12-30 Estimated GFR (MDRD) Amer 68 mL/min >60 [facility] Work Phone: Comment on above: GFR Calc Estimated GFR (MDRD) Non-Af Amer 56 mL/min >60 [facility] Work Phone: Comment on above: Non- GFR Calc Platelets bldon 12-30-2021 Platelets (Bld) [#/Vol] 244 10*3/uL 150-450 [facility] Work Phone: Serum or plasma albumin alexia urement (mass/volume)on 12-30-2021 Albumin [Mass/Vol] 3.7 g/dL 3.2-5.0 [facility] Work Phone: Serum or plasma albumin/glob ulin mass ratioon 12-30-2021 Albumin/Globulin [Mass ratio] 1.0 {ratio} 0.9-2.4 [facility] Work Phone: Serum or plasma calcium alexia urement (mass/volume)on 12-30-2021 Calcium [Mass/Vol] 9.4 mg/dL 8.5-10.1 [facility] Work Phone: Serum or plasma creatinine m easurement (mass/volume)on 12-30-2021 Creatinine [Mass/Vol] 1.13 mg/dL 0.55-1.02 [facility] Work Phone: Comment on above: The validity of the calculated GFR & GFRAA in patients over 70 years has not been determined. Clinical correlation is essential. Serum or plasma urea nitroge n measurement (mass/volume)on 12-30-2021 Urea nitrogen [Mass/Vol] 8 mg/dL 7-18 [facility] Work Phone: Thin prep Papanicolaou smear with manual screeningon 12-30-2021 Thin prep Papanicolaou smear with manual screening 26 U/L 15-37 [facility] Work Phone: Thin prep Papanicolaou smear with manual screening 8 5-15 [facility] Work Phone: Basophil percentageon 2021 Bilirubin [Mass/Vol] 0.60 mg/dL 0.20-1.00 [facility] Work Phone: Comment on above: For patients on eltr ombopag therapy, use of Dimension [place] TBIL is not recommended. Chloride [Moles/Vol] 109 mmol/L 98-107 [facility] Work Phone: Glucose [Mass/Vol] 117 mg/dL 74-106 [facility] Work Phone: Comment on above: Fasting Glucose resu lt from 100 to 125 mg/dL suggests IMPAIRED HOMEOSTASIS per A.D.A. criteria. Potassium [Moles/Vol] 3.2 mmol/L 3.5-5.1 [facility] Work Phone: Protein [Mass/Vol] 7.4 g/dL 6.4-8.2 [facility] Work Phone: Sodium [Moles/Vol] 140 mmol/L 136-145 [facility] Work Phone: Laboratory - Chemistry and C hemistry - challengeon 12-25-2021 ALP [Catalytic activity/Vol] 131 U/L 45-117 [facility] Work Phone: ALT [Catalytic activity/Vol] 31 U/L 13-56 [facility] Work Phone: CO2 [Moles/Vol] 22.0 mmol/L 21.0-32.0 [facility] Work Phone: Globulin (S) [Mass/Vol] 3.4 g/dL 2.2-4.2 [facility] Work Phone: Urea nitrogen/Creatinine [Mass ratio] 6.8 mg/mg 10-20 [facility] Work Phone: No Panel Informationon 12-25 [place] Level < 0.20 mmol/L 0.60-1.20 [facility] Work Phone: Estimated GFR (MDRD) Amer 66 mL/min >60 [facility] Work Phone: Comment on above: GFR Calc Estimated GFR (MDRD) Non-Af Amer 54 mL/min >60 [facility] Work Phone: Comment on above: Non- GFR Calc Serum or plasma albumin alexia urement (mass/volume)on 12-25-2021 Albumin [Mass/Vol] 4.0 g/dL 3.2-5.0 [facility] Work Phone: Serum or plasma albumin/glob ulin mass ratioon 12-25-2021 Albumin/Globulin [Mass ratio] 1.2 {ratio} 0.9-2.4 [facility] Work Phone: Serum or plasma calcium alexia urement (mass/volume)on 12-25-2021 Calcium [Mass/Vol] 9.5 mg/dL 8.5-10.1 [facility] Work Phone: Serum or plasma creatinine m easurement (mass/volume)on 12-25-2021 Creatinine [Mass/Vol] 1.17 mg/dL 0.55-1.02 [facility] Work Phone: Comment on above: The validity of the calculated GFR & GFRAA in patients over 70 years has not been determined. Clinical correlation is essential. Serum or plasma urea nitroge n measurement (mass/volume)on 12-25-2021 Urea nitrogen [Mass/Vol] 8 mg/dL 7-18 [facility] Work Phone: Thin prep Papanicolaou smear with manual screeningon 12-25-2021 Thin prep Papanicolaou smear with manual screening 17 U/L 15-37 [facility] Work Phone: Thin prep Papanicolaou smear with manual screening 9 5-15 [facility] Work Phone: Basophil percentageon 2021 Chloride [Moles/Vol] 103 mmol/L 98-107 [facility] Work Phone: Glucose [Mass/Vol] 104 mg/dL 74-106 [facility] Work Phone: Comment on above: Fasting Glucose resu lt from 100 to 125 mg/dL suggests IMPAIRED HOMEOSTASIS per A.D.A. criteria. Potassium [Moles/Vol] 3.5 mmol/L 3.5-5.1 [facility] Work Phone: Sodium [Moles/Vol] 136 mmol/L 136-145 [facility] Work Phone: Laboratory - Chemistry and C hemistry - challengeon 12-21-2021 CO2 [Moles/Vol] 23.0 mmol/L 21.0-32.0 [facility] Work Phone: Urea nitrogen/Creatinine [Mass ratio] 9.9 mg/mg 10-20 [facility] Work Phone: No Panel Informationon 12-21 [place] Level 1.00 mmol/L 0.60-1.20 [facility] Work Phone: Estimated GFR (MDRD) Amer 58 mL/min >60 [facility] Work Phone: Comment on above: GFR Calc Estimated GFR (MDRD) Non-Af Amer 48 mL/min >60 [facility] Work Phone: Comment on above: Non- GFR Calc Serum or plasma calcium alexia urement (mass/volume)on 12-21-2021 Calcium [Mass/Vol] 9.9 mg/dL 8.5-10.1 [facility] Work Phone: Serum or plasma creatinine m easurement (mass/volume)on 12-21-2021 Creatinine [Mass/Vol] 1.31 mg/dL 0.55-1.02 [facility] Work Phone: Comment on above: The validity of the calculated GFR & GFRAA in patients over 70 years has not been determined. Clinical correlation is essential. Serum or plasma urea nitroge n measurement (mass/volume)on 12-21-2021 Urea nitrogen [Mass/Vol] 13 mg/dL 7-18 [facility] Work Phone: Thin prep Papanicolaou smear with manual screeningon 12-21-2021 Thin prep Papanicolaou smear with manual screening 10 5-15 [facility] Work Phone: Absolute lymphocyte counton 12-18-2021 Lymphocytes Auto (Unsp spec) [#/Vol] 1.16 10*3/uL 0.83-4.51 [facility] Work Phone: Basophil percentageon 2021 Basophils/100 WBC (Bld) 0.8 % 0-1 [facility] Work Phone: Bilirubin [Mass/Vol] 0.20 mg/dL 0.20-1.00 [facility] Work Phone: Comment on above: For patients on eltr ombopag therapy, use of Dimension [place] TBIL is not recommended. Chloride [Moles/Vol] 102 mmol/L 98-107 [facility] Work Phone: Eosinophils/100 WBC (Bld) 4.1 % 0-5 [facility] Work Phone: Glucose [Mass/Vol] 92 mg/dL 74-106 [facility] Work Phone: Neutrophils (Bld) [#/Vol] 5.7 10*3/uL 2.0-7.7 [facility] Work Phone: Neutrophils/100 WBC (Bld) 73.4 % 47-70 [facility] Work Phone: Potassium [Moles/Vol] 3.7 mmol/L 3.5-5.1 [facility] Work Phone: Protein [Mass/Vol] 7.6 g/dL 6.4-8.2 [facility] Work Phone: Sodium [Moles/Vol] 133 mmol/L 136-145 [facility] Work Phone: WBC (Bld) [#/Vol] 7.8 10*3/uL 4.4-11.0 [facility] Work Phone: Blood erythrocytes count (nu mber/volume)on 12-18-2021 RBC (Bld) [#/Vol] 3.93 10*6/uL 4.2-5.4 [facility] Work Phone: Blood hemoglobin measurement (mass/volume)on 12-18-2021 Hemoglobin (Bld) [Mass/Vol] 11.3 g/dL 12.0-15.0 [facility] Work Phone: Blood lymphocytes/100 leukoc yteson 12-18-2021 Lymphocytes/100 WBC (Bld) 14.9 % 19-41 [facility] Work Phone: Blood monocytes/100 leukocyt eson 12-18-2021 Monocytes/100 WBC (Bld) 5.8 % 0-10 [facility] Work Phone: Blood platelet mean volumeon 12-18-2021 Platelet mean volume (Bld) [Entitic vol] 9.2 fL 6.2-12.0 [facility] Work Phone: Determination of erythrocyte mean corpuscular volume (MCV)on 12-18-2021 MCV (RBC) [Entitic vol] 86.3 fL 81-99 [facility] Work Phone: Hematocrit Auto (Bld) [Volum e fraction]on 12-18-2021 Hematocrit (Bld) [Volume fraction] 33.9 % 37-47 [facility] Work Phone: Laboratory - Chemistry and C hemistry - challengeon 12-18-2021 ALP [Catalytic activity/Vol] 169 U/L 45-117 [facility] Work Phone: ALT [Catalytic activity/Vol] 20 U/L 13-56 [facility] Work Phone: CO2 [Moles/Vol] 26.0 mmol/L 21.0-32.0 [facility] Work Phone: Free T4 [Mass/Vol] 0.88 ng/dL 0.76-1.46 [facility] Work Phone: Globulin (S) [Mass/Vol] 3.7 g/dL 2.2-4.2 [facility] Work Phone: Magnesium [Mass/Vol] 2.5 mg/dL 1.6-2.6 [facility] Work Phone: Urea nitrogen/Creatinine [Mass ratio] 13.4 mg/mg 10-20 [facility] Work Phone: Laboratory - Hematology and Cell countson 12-18-2021 Erythrocyte distribution width (RBC) [Entitic vol] 44.5 fL 35.1-43.9 [facility] Work Phone: Erythrocyte distribution width (RBC) [Ratio] 14.0 % 11.6-14.6 [facility] Work Phone: Immature granulocytes/100 WBC (Bld) 1.000 % 0.0-0.9 [facility] Work Phone: Comment on above: IG% - Immature Granu locytes (promyelocytes, myelocytes and metamyelocytes) > 1% indicates that a LEFT SHIFT is Present. MCH (RBC) [Entitic mass] 28.8 pg 27.0-32.0 [facility] Work Phone: Nucleated RBC/100 WBC (Bld) [Ratio] 0 % 0-5 [facility] Work Phone: MCHC Auto (RBC) [Mass/Vol]on 12-18-2021 MCHC (RBC) [Mass/Vol] 33.3 g/dL 32-36 [facility] Work Phone: No Panel Informationon 12-18 [place] Level 3.40 mmol/L 0.60-1.20 [facility] Work Phone: Comment on above: Critical Result(s) C alled at: 15:06:18 12/18/2021 by: Kenrick Thomas to Cornel ALTMAN (MFPLAB). Results read back by same. Estimated GFR (MDRD) Amer 38 mL/min >60 [facility] Work Phone: Comment on above: GFR Calc Estimated GFR (MDRD) Non-Af Amer 32 mL/min >60 [facility] Work Phone: Comment on above: Non- GFR Calc Thyroid Stimulating Hormone (TSH) 1.95 uIU/mL 0.358-3.74 [facility] Work Phone: Platelets bldon 12-18-2021 Platelets (Bld) [#/Vol] 249 10*3/uL 150-450 [facility] Work Phone: Serum or plasma albumin alexia urement (mass/volume)on 12-18-2021 Albumin [Mass/Vol] 3.9 g/dL 3.2-5.0 [facility] Work Phone: Serum or plasma albumin/glob ulin mass ratioon 12-18-2021 Albumin/Globulin [Mass ratio] 1.1 {ratio} 0.9-2.4 [facility] Work Phone: Serum or plasma calcium alexia urement (mass/volume)on 12-18-2021 Calcium [Mass/Vol] 9.4 mg/dL 8.5-10.1 [facility] Work Phone: Serum or plasma creatinine m easurement (mass/volume)on 12-18-2021 Creatinine [Mass/Vol] 1.86 mg/dL 0.55-1.02 [facility] Work Phone: Comment on above: The validity of the calculated GFR & GFRAA in patients over 70 years has not been determined. Clinical correlation is essential. Serum or plasma urea nitroge n measurement (mass/volume)on 12-18-2021 Urea nitrogen [Mass/Vol] 25 mg/dL 7-18 [facility] Work Phone: Thin prep Papanicolaou smear with manual screeningon 12-18-2021 Thin prep Papanicolaou smear with manual screening 13 U/L 15-37 [facility] Work Phone: Thin prep Papanicolaou smear with manual screening 5 5-15 [facility] Work Phone: Absolute lymphocyte counton 12-13-2021 Lymphocytes Auto (Unsp spec) [#/Vol] 0.53 10*3/uL 0.83-4.51 [facility] Work Phone: Basophil percentageon 2021 Basophil percentage >100 SEEN /hpf 0-5 [facility] Work Phone: Basophils/100 WBC (Bld) 0.5 % 0-1 [facility] Work Phone: Bilirubin [Mass/Vol] 0.60 mg/dL 0.20-1.00 [facility] Work Phone: Comment on above: For patients on eltr ombopag therapy, use of Dimension [place] TBIL is not recommended. Chloride [Moles/Vol] 104 mmol/L 98-107 [facility] Work Phone: Eosinophils/100 WBC (Bld) 2.1 % 0-5 [facility] Work Phone: Glucose [Mass/Vol] 153 mg/dL 74-106 [facility] Work Phone: Comment on above: Fasting Glucose resu lt greater than or equal to 126 mg/dL suggests DIABETES MELLITUS per A.D.A. criteria. Neutrophils (Bld) [#/Vol] 5.0 10*3/uL 2.0-7.7 [facility] Work Phone: Neutrophils/100 WBC (Bld) 82.2 % 47-70 [facility] Work Phone: Potassium [Moles/Vol] 2.9 mmol/L 3.5-5.1 [facility] Work Phone: Protein [Mass/Vol] 8.1 g/dL 6.4-8.2 [facility] Work Phone: Sodium [Moles/Vol] 133 mmol/L 136-145 [facility] Work Phone: WBC (Bld) [#/Vol] 6.1 10*3/uL 4.4-11.0 [facility] Work Phone: Bilirubin Test strip Ql (U)o n 12-13-2021 Bilirubin Ql (U) Negative Negative [facility] Work Phone: Blood erythrocytes count (nu mber/volume)on 12-13-2021 RBC (Bld) [#/Vol] 4.32 10*6/uL 4.2-5.4 [facility] Work Phone: Blood hemoglobin measurement (mass/volume)on 12-13-2021 Hemoglobin (Bld) [Mass/Vol] 12.0 g/dL 12.0-15.0 [facility] Work Phone: Blood lymphocytes/100 leukoc yteson 12-13-2021 Lymphocytes/100 WBC (Bld) 8.7 % 19-41 [facility] Work Phone: Blood manual differential co mment interpretation (narrative result)on 12-13-2021 Manual differential comment Christopher (Bld) [Interp] SCANNED [facility] Work Phone: Blood monocytes/100 leukocyt eson 12-13-2021 Monocytes/100 WBC (Bld) 6.2 % 0-10 [facility] Work Phone: Blood platelet mean volumeon 12-13-2021 Platelet mean volume (Bld) [Entitic vol] 8.3 fL 6.2-12.0 [facility] Work Phone: Determination of erythrocyte mean corpuscular volume (MCV)on 12-13-2021 MCV (RBC) [Entitic vol] 85.2 fL 81-99 [facility] Work Phone: Hematocrit Auto (Bld) [Volum e fraction]on 12-13-2021 Hematocrit (Bld) [Volume fraction] 36.8 % 37-47 [facility] Work Phone: Ketones Test strip Ql (U)on 12-13-2021 Ketones Ql (U) 15 mg/dl Negative [facility] Work Phone: Laboratory - Chemistry and C hemistry - challengeon 12-13-2021 ALP [Catalytic activity/Vol] 196 U/L 45-117 [facility] Work Phone: ALT [Catalytic activity/Vol] 18 U/L 13-56 [facility] Work Phone: CO2 [Moles/Vol] 20.0 mmol/L 21.0-32.0 [facility] Work Phone: Globulin (S) [Mass/Vol] 4.0 g/dL 2.2-4.2 [facility] Work Phone: Lipase [Catalytic activity/Vol] 146 U/L 73-393 [facility] Work Phone: Urea nitrogen/Creatinine [Mass ratio] 20.3 mg/mg 10-20 [facility] Work Phone: Laboratory - Hematology and Cell countson 12-13-2021 Erythrocyte distribution width (RBC) [Entitic vol] 42.9 fL 35.1-43.9 [facility] Work Phone: Erythrocyte distribution width (RBC) [Ratio] 13.7 % 11.6-14.6 [facility] Work Phone: Immature granulocytes/100 WBC (Bld) 0.300 % 0.0-0.9 [facility] Work Phone: Comment on above: IG% - Immature Granu locytes (promyelocytes, myelocytes and metamyelocytes) > 1% indicates that a LEFT SHIFT is Present. MCH (RBC) [Entitic mass] 27.8 pg 27.0-32.0 [facility] Work Phone: Nucleated RBC/100 WBC (Bld) [Ratio] 0 % 0-5 [facility] Work Phone: MCHC Auto (RBC) [Mass/Vol]on 12-13-2021 MCHC (RBC) [Mass/Vol] 32.6 g/dL 32-36 [facility] Work Phone: Mucus LM Ql (Urine sed)on Mucus Ql (Urine sed) 0 SEEN /hpf [facility] Work Phone: Nitrite Test strip Ql (U)on 12-13-2021 Nitrite Ql (U) Positive Negative [facility] Work Phone: No Panel Informationon 12-13 Estimated Creatinine Clearance Calc 58.76 ml/min [facility] Work Phone: Estimated GFR (MDRD) Amer 57 mL/min >60 [facility] Work Phone: Comment on above: GFR Calc Estimated GFR (MDRD) Non-Af Amer 47 mL/min >60 [facility] Work Phone: Comment on above: Non- GFR Calc Platelets bldon 12-13-2021 Platelets (Bld) [#/Vol] 222 10*3/uL 150-450 [facility] Work Phone: Protein Test strip Ql (U)on 12-13-2021 Protein Ql (U) 100 mg/dl Negative [facility] Work Phone: Serum or plasma albumin alexia urement (mass/volume)on 12-13-2021 Albumin [Mass/Vol] 4.1 g/dL 3.2-5.0 [facility] Work Phone: Serum or plasma albumin/glob ulin mass ratioon 12-13-2021 Albumin/Globulin [Mass ratio] 1.0 {ratio} 0.9-2.4 [facility] Work Phone: Serum or plasma calcium alexia urement (mass/volume)on 12-13-2021 Calcium [Mass/Vol] 9.5 mg/dL 8.5-10.1 [facility] Work Phone: Serum or plasma creatinine m easurement (mass/volume)on 12-13-2021 Creatinine [Mass/Vol] 1.33 mg/dL 0.55-1.02 [facility] Work Phone: Comment on above: The validity of the calculated GFR & GFRAA in patients over 70 years has not been determined. Clinical correlation is essential. Serum or plasma urea nitroge n measurement (mass/volume)on 12-13-2021 Urea nitrogen [Mass/Vol] 27 mg/dL 7-18 [facility] Work Phone: Squamous epithelial cells de tection in urine sediment by light microscopyon 12-13-2021 Epithelial cells.squamous LM Ql (Urine sed) 0 SEEN /hpf 5-10 [facility] Work Phone: Thin prep Papanicolaou smear with manual screeningon 12-13-2021 Thin prep Papanicolaou smear with manual screening 11 U/L 15-37 [facility] Work Phone: Thin prep Papanicolaou smear with manual screening 9 5-15 [facility] Work Phone: Urine blood detectionon 07-0 RBC Ql (U) 50 /ul Negative [facility] Work Phone: RBC Ql (U) 0 SEEN /hpf 0-5 [facility] Work Phone: Urine clarityon 12-13-2021 Clarity (U) Sl. Cloudy Clear [facility] Work Phone: Urine color determinationon 12-13-2021 Color (U) Yellow Yellow [facility] Work Phone: Urine glucose detectionon Glucose Ql (U) Normal mg/dl Normal [facility] Work Phone: Urine leukocyte esterase det ection by dipstickon 12-13-2021 Leukocyte esterase Test strip Ql (U) 500 /ul Negative [facility] Work Phone: Urine pHon 12-13-2021 pH (U) 7.0 [pH] 5.0 - 8.0 [facility] Work Phone: Urine sediment bacteria coun t by microscopy (number/high power field)on 12-13-2021 Bacteria LM.HPF (Urine sed) [#/Area] 2 /[HPF] None Seen [facility] Work Phone: Urine specific gravity measu rementon 12-13-2021 Specific gravity (U) [Rel density] 1.025 1.002-1.030 [facility] Work Phone: Urobilinogen Auto test strip Ql (U)on 12-13-2021 Urobilinogen Ql (U) Normal mg/dl Normal [facility] Work Phone: Basophil percentageon 2021 Bilirubin [Mass/Vol] 0.40 mg/dL 0.20-1.00 [facility] Work Phone: Comment on above: For patients on eltr ombopag therapy, use of Dimension [place] TBIL is not recommended. Chloride [Moles/Vol] 100 mmol/L 98-107 [facility]: Glucose [Mass/Vol] 128 mg/dL 74-106 [facility] Work Phone: Comment on above: Fasting Glucose resu lt greater than or equal to 126 mg/dL suggests DIABETES MELLITUS per A.D.A. criteria. Potassium [Moles/Vol] 3.2 mmol/L 3.5-5.1 [facility] Work Phone: Protein [Mass/Vol] 7.9 g/dL [facility].4[facility]: Sodium [Moles/Vol] 133 mmol/L 136-145 [facility] Work Phone: WBC (Bld) [#/Vol] 7.3 10*3/uL 4.4-11.0 [facility] Work Phone: Blood erythrocytes count (nu mber/volume)on 11-23-2021 RBC (Bld) [#/Vol] 4.05 10*6/uL 4.2-5.4 [facility] Work Phone: Blood hemoglobin measurement (mass/volume)on 11-23-2021 Hemoglobin (Bld) [Mass/Vol] 11.7 g/dL 12.0-15.0 [facility] Work Phone: Blood platelet mean volumeon 11-23-2021 Platelet mean volume (Bld) [Entitic vol] 8.5 fL 6.2-12.0 [facility] Work Phone: Determination of erythrocyte mean corpuscular volume (MCV)on 11-23-2021 MCV (RBC) [Entitic vol] 85.2 fL 81-99 [facility] Work Phone: Hematocrit Auto (Bld) [Volum e fraction]on 11-23-2021 Hematocrit (Bld) [Volume fraction] 34.5 % 37-47 [facility] Work Phone: INR in Blood by Coagulation assayon 11-23-2021 INR Coag (Bld) [Relative time] 1.0 {INR} [facility] Work Phone: Laboratory - Chemistry and C hemistry - challengeon 11-23-2021 ALP [Catalytic activity/Vol] 87 U/L 45-117 [facility] Work Phone: ALT [Catalytic activity/Vol] 31 U/L 13-56 [facility] Work Phone: CO2 [Moles/Vol] 24.0 mmol/L 21.0-32.0 [facility] Work Phone: Free T4 [Mass/Vol] 0.80 ng/dL 0.76-1.46 [facility] Work Phone: Globulin (S) [Mass/Vol] 4.1 g/dL 2.2-4.2 [facility] Work Phone: Urea nitrogen/Creatinine [Mass ratio] 14.3 mg/mg 10-20 [facility] Work Phone: Laboratory - Coagulationon 0 11-23-2021 PT Coag (PPP) [Time] 12.5 s 11.7-14.9 [facility] Work Phone: Laboratory - Hematology and Cell countson 11-23-2021 Erythrocyte distribution width (RBC) [Entitic vol] 42.7 fL 35.1-43.9 [facility] Work Phone: Erythrocyte distribution width (RBC) [Ratio] 13.8 % 11.6-14.6 [facility] Work Phone: MCH (RBC) [Entitic mass] 28.9 pg 27.0-32.0 [facility] Work Phone: MCHC Auto (RBC) [Mass/Vol]on 11-23-2021 MCHC (RBC) [Mass/Vol] 33.9 g/dL 32-36 [facility] Work Phone: No Panel Informationon 11-23 Estimated GFR (MDRD) Amer 80 mL/min >60 [facility] Work Phone: Comment on above: GFR Calc Estimated GFR (MDRD) Non-Af Amer 66 mL/min >60 [facility] Work Phone: Comment on above: Non- GFR Calc Platelets don 11-23-2021 Platelets (Bld) [#/Vol] 282 10*3/uL 150-450 [facility] Work Phone: Serum or plasma albumin alexia urement (mass/volume)on 11-23-2021 Albumin [Mass/Vol] 3.8 g/dL 3.2-5.0 [facility] Work Phone: Serum or plasma albumin/glob ulin mass ratioon 11-23-2021 Albumin/Globulin [Mass ratio] 0.9 {ratio} 0.9-2.4 [facility] Work Phone: Serum or plasma calcium alexia urement (mass/volume)on 11-23-2021 Calcium [Mass/Vol] 9.5 mg/dL 8.5-10.1 [facility] Work Phone: Serum or plasma creatinine m easurement (mass/volume)on 11-23-2021 Creatinine [Mass/Vol] 0.98 mg/dL 0.55-1.02 [facility] Work Phone: Comment on above: The validity of the calculated GFR & GFRAA in patients over 70 years has not been determined. Clinical correlation is essential. Serum or plasma urea nitroge n measurement (mass/volume)on 11-23-2021 Urea nitrogen [Mass/Vol] 14 mg/dL 7-18 [facility] Work Phone: Thin prep Papanicolaou smear with manual screeningon 11-23-2021 Thin prep Papanicolaou smear with manual screening 14 U/L 15-37 [facility] Work Phone: Thin prep Papanicolaou smear with manual screening 9 5-15 [facility] Work Phone: PROGESTERONE [facility] 2 Progesterone [Mass/Vol] 0.2 ng/mL See comment ng/mL [facility] PROLACTIN [facility] 10-28-2021 Prolactin [Mass/Vol] 13.2 ng/mL 4.5 - 2 6.8 ng/mL [facility] TSH BLDon 10-28-2021 TSH Qn 4.460 m[IU]/L High 0.270 - 4.200 mIU/L [facility] Basophil percentageon 2021 Chloride [Moles/Vol] 104 mmol/L 98-107 [facility] Work Phone: Glucose [Mass/Vol] 84 mg/dL 74-106 [facility] Work Phone: Potassium [Moles/Vol] 3.5 mmol/L 3.5-5.1 [facility] Work Phone: Sodium [Moles/Vol] 134 mmol/L 136-145 [facility] Work Phone: Laboratory - Chemistry and C hemistry - challengeon 10-02-2021 CO2 [Moles/Vol] 23.0 mmol/L 21.0-32.0 [facility] Work Phone: Urea nitrogen/Creatinine [Mass ratio] 13.8 mg/mg 10-20 [facility] Work Phone: No Panel Informationon 10-02 Estimated GFR (MDRD) Amer 93 mL/min >60 [facility] Work Phone: Comment on above: GFR Calc Estimated GFR (MDRD) Non-Af Amer 77 mL/min >60 [facility] Work Phone: Comment on above: Non- GFR Calc [place] Level 0.80 mmol/L 0.60-1.20 [facility] Work Phone: Serum or plasma calcium alexia urement (mass/volume)on 10-02-2021 Calcium [Mass/Vol] 9.4 mg/dL 8.5-10.1 [facility] Work Phone: Serum or plasma creatinine m easurement (mass/volume)on 10-02-2021 Creatinine [Mass/Vol] 0.87 mg/dL 0.55-1.02 [facility] Work Phone: Comment on above: The validity of the calculated GFR & GFRAA in patients over 70 years has not been determined. Clinical correlation is essential. Serum or plasma urea nitroge n measurement (mass/volume)on 10-02-2021 Urea nitrogen [Mass/Vol] 12 mg/dL 7-18 [facility] Work Phone: Thin prep Papanicolaou smear with manual screeningon 10-02-2021 Thin prep Papanicolaou smear with manual screening 7 5-15 [facility] Work Phone: Basophil percentageon 2021 Chloride [Moles/Vol] 101 mmol/L 98-107 [facility] Work Phone: Glucose [Mass/Vol] 87 mg/dL 74-106 [facility] Work Phone: Potassium [Moles/Vol] 3.3 mmol/L 3.5-5.1 [facility] Work Phone: Sodium [Moles/Vol] 133 mmol/L 136-145 [facility] Work Phone: Laboratory - Chemistry and C hemistry - challengeon 09-14-2021 CO2 [Moles/Vol] 23.0 mmol/L 21.0-32.0 [facility] Work Phone: Urea nitrogen/Creatinine [Mass ratio] 13.4 mg/mg 10-20 [facility] Work Phone: No Panel Informationon 09-14 Estimated GFR (MDRD) Amer 90 mL/min >60 [facility] Work Phone: Comment on above: GFR Calc Estimated GFR (MDRD) Non-Af Amer 74 mL/min >60 [facility] Work Phone: Comment on above: Non- GFR Calc [place] Level 1.30 mmol/L 0.60-1.20 [facility] Work Phone: Thyroid Stimulating Hormone (TSH) 3.29 uIU/mL 0.358-3.74 [facility] Work Phone: Serum or plasma calcium alexia urement (mass/volume)on 09-14-2021 Calcium [Mass/Vol] 9.0 mg/dL 8.5-10.1 [facility] Work Phone: Serum or plasma creatinine m easurement (mass/volume)on 09-14-2021 Creatinine [Mass/Vol] 0.89 mg/dL 0.55-1.02 [facility] Work Phone: Comment on above: The validity of the calculated GFR & GFRAA in patients over 70 years has not been determined. Clinical correlation is essential. Serum or plasma urea nitroge n measurement (mass/volume)on 09-14-2021 Urea nitrogen [Mass/Vol] 12 mg/dL 7-18 [facility] Work Phone: Thin prep Papanicolaou smear with manual screeningon 09-14-2021 Thin prep Papanicolaou smear with manual screening 9 5-15 [facility] Work Phone: Absolute lymphocyte counton 07-29-2021 Lymphocytes Auto (Unsp spec) [#/Vol] 1.34 10*3/uL 0.83-4.51 [facility] Work Phone: Basophil percentageon 2021 Basophils/100 WBC (Bld) 0.6 % 0-1 [facility] Work Phone: Bilirubin [Mass/Vol] 1.00 mg/dL 0.20-1.00 [facility] Work Phone: Comment on above: For patients on eltr ombopag therapy, use of Dimension [place] TBIL is not recommended. Chloride [Moles/Vol] 102 mmol/L 98-107 [facility] Work Phone: Eosinophils/100 WBC (Bld) 3.2 % 0-5 [facility] Work Phone: Glucose [Mass/Vol] 87 mg/dL 74-106 [facility] Work Phone: Neutrophils (Bld) [#/Vol] 6.3 10*3/uL 2.0-7.7 [facility] Work Phone: Neutrophils/100 WBC (Bld) 73.9 % 47-70 [facility] Work Phone: Potassium [Moles/Vol] 3.0 mmol/L 3.5-5.1 [facility] Work Phone: Protein [Mass/Vol] 7.9 g/dL 6.4-8.2 [facility] Work Phone: Sodium [Moles/Vol] 136 mmol/L 136-145 [facility] Work Phone: WBC (Bld) [#/Vol] 8.5 10*3/uL 4.4-11.0 [facility] Work Phone: Blood erythrocytes count (nu mber/volume)on 07-29-2021 RBC (Bld) [#/Vol] 4.12 10*6/uL 4.2-5.4 [facility] Work Phone: Blood hemoglobin measurement (mass/volume)on 07-29-2021 Hemoglobin (Bld) [Mass/Vol] 12.8 g/dL 12.0-15.0 [facility] Work Phone: Blood lymphocytes/100 leukoc yteson 07-29-2021 Lymphocytes/100 WBC (Bld) 15.8 % 19-41 [facility] Work Phone: Blood monocytes/100 leukocyt eson 07-29-2021 Monocytes/100 WBC (Bld) 6.0 % 0-10 [facility] Work Phone: Blood platelet mean volumeon 07-29-2021 Platelet mean volume (Bld) [Entitic vol] 8.5 fL 6.2-12.0 [facility] Work Phone: Determination of erythrocyte mean corpuscular volume (MCV)on 07-29-2021 MCV (RBC) [Entitic vol] 88.8 fL 81-99 [facility] Work Phone: Hematocrit Auto (Bld) [Volum e fraction]on 07-29-2021 Hematocrit (Bld) [Volume fraction] 36.6 % 37-47 [facility] Work Phone: Laboratory - Chemistry and C hemistry - challengeon 07-29-2021 ALP [Catalytic activity/Vol] 73 U/L 45-117 [facility] Work Phone: ALT [Catalytic activity/Vol] 33 U/L 13-56 [facility] Work Phone: CO2 [Moles/Vol] 24.0 mmol/L 21.0-32.0 [facility] Work Phone: Globulin (S) [Mass/Vol] 3.8 g/dL 2.2-4.2 [facility] Work Phone: Lipase [Catalytic activity/Vol] 104 U/L 73-393 [facility] Work Phone: Urea nitrogen/Creatinine [Mass ratio] 17.9 mg/mg 10-20 [facility] Work Phone: Laboratory - Hematology and Cell countson 07-29-2021 Erythrocyte distribution width (RBC) [Entitic vol] 43.6 fL 35.1-43.9 [facility] Work Phone: Erythrocyte distribution width (RBC) [Ratio] 13.3 % 11.6-14.6 [facility] Work Phone: Immature granulocytes/100 WBC (Bld) 0.500 % 0.0-0.9 [facility] Work Phone: Comment on above: IG% - Immature Granu locytes (promyelocytes, myelocytes and metamyelocytes) > 1% indicates that a LEFT SHIFT is Present. MCH (RBC) [Entitic mass] 31.1 pg 27.0-32.0 [facility] Work Phone: Nucleated RBC/100 WBC (Bld) [Ratio] 0 % 0-5 [facility] Work Phone: MCHC Auto (RBC) [Mass/Vol]on 07-29-2021 MCHC (RBC) [Mass/Vol] 35.0 g/dL 32-36 [facility] Work Phone: No Panel Informationon 07-29 Estimated Creatinine Clearance Calc 93.04 ml/min [facility] Work Phone: Estimated GFR (MDRD) Amer 96 mL/min >60 [facility] Work Phone: Comment on above: GFR Calc Estimated GFR (MDRD) Non-Af Amer 80 mL/min >60 [facility] Work Phone: Comment on above: Non- GFR Calc Platelets bldon 07-29-2021 Platelets (Bld) [#/Vol] 226 10*3/uL 150-450 [facility] Work Phone: Serum or plasma albumin alexia urement (mass/volume)on 07-29-2021 Albumin [Mass/Vol] 4.1 g/dL 3.2-5.0 [facility] Work Phone: Serum or plasma albumin/glob ulin mass ratioon 07-29-2021 Albumin/Globulin [Mass ratio] 1.1 {ratio} 0.9-2.4 [facility] Work Phone: Serum or plasma calcium alexia urement (mass/volume)on 07-29-2021 Calcium [Mass/Vol] 10.0 mg/dL 8.5-10.1 [facility] Work Phone: Serum or plasma creatinine m easurement (mass/volume)on 07-29-2021 Creatinine [Mass/Vol] 0.84 mg/dL 0.55-1.02 [facility] Work Phone: Comment on above: The validity of the calculated GFR & GFRAA in patients over 70 years has not been determined. Clinical correlation is essential. Serum or plasma urea nitroge n measurement (mass/volume)on 07-29-2021 Urea nitrogen [Mass/Vol] 15 mg/dL 7-18 [facility] Work Phone: Thin prep Papanicolaou smear with manual screeningon 07-29-2021 Thin prep Papanicolaou smear with manual screening 20 U/L 15-37 [facility] Work Phone: Thin prep Papanicolaou smear with manual screening 10 5-15 [facility] Work Phone: INR in Blood by Coagulation assayon 07-24-2021 INR Coag (Bld) [Relative time] 0.9 {INR} [facility] Work Phone: Laboratory - Coagulationon 0 07-24-2021 aPTT Coag (Bld) [Time] 29.0 s 24.1-36.2 [facility] Work Phone: PT Coag (PPP) [Time] 11.7 s 11.7-14.9 [facility] Work Phone: Platelets bldon 07-24-2021 Platelets (Bld) [#/Vol] 224 10*3/uL 150-450 [facility] Work Phone: Culture, urine Bacteria identified Cx Nom (U) Mixed Gram Pos & Gram Neg Org [facility] Work Phone: Vital Signs Date Time Vital Sign Value Performing Clinician Faci lity 09-19-2024 14:47-0400 Body height 175.3 cm Abigail Mcdermott MD Work Phone: [facility] 09-19-2024 14:47-0400 Body mass index (BMI) [Ratio] 27.79 kg/m2 Abigail Mcdermott MD Work Phone: [facility] 09-19-2024 14:47-0400 Body weight 85.37 kg Abigail Mcdermott MD Work Phone: [facility] 09-19-2024 14:47-0400 Diastolic blood pressure 72 mm[Hg] Abigail Mcdermott MD Work Phone: [facility] 09-19-2024 14:47-0400 Heart rate 73 /min Abigail Mcdermott MD Work Phone: [facility] 09-19-2024 14:47-0400 Systolic blood pressure 112 mm[Hg] Abigail Mcdermott MD Work Phone: [facility] 09-19-2024 14:45-0400 Body height 175.[address] Work Phone: [facility] 09-19-2024 14:45-0400 Body mass index (BMI) [Ratio] 27.85 kg/m2 Claudia Guillaume RD Work Phone: [facility] 09-19-2024 14:45-0400 Body weight 85.[address] Work Phone: [facility] 08-17-2024 08:46-0500 Body height 175.3 cm Tejal Lucio [employer] Work Phone: [facility] 08-17-2024 08:46-0500 Body mass index (BMI) [Ratio] 28.35 kg/m2 Tejal Lucio TELLERS SUPER[employer] Work Phone: [facility] 08-17-2024 08:46-0500 Body weight 87.09 kg Tejal Lucio TELLERS SUPER[employer]OR[employer] P Work Phone: [facility] 06-22-2024 07:45-0500 Body height 175.[address] Work Phone: [facility] 06-22-2024 07:45-0500 Body mass index (BMI) [Ratio] 29.68 kg/m2 Claudia Guillaume RD Work Phone: [facility] 06-22-2024 07:45-0500 Body weight 91.[address] Work Phone: [facility] 06-22-2024 07:43-0500 Body height 175.3 cm Tejal Lucio TELLERS SUPER[employer] Work Phone: [facility] 06-22-2024 07:43-0500 Body mass index (BMI) [Ratio] 29.68 kg/m2 Tejal Lucio TELLERS SUPER[employer]OR[employer] Work Phone: [facility] 06-22-2024 07:43-0500 Body weight 91.17 kg Tejal Lucio TELLERS SUPER[employer]OR[employer] Work Phone: [facility] 05-28-2024 08:02-0500 Body height 175.[address] Work Phone: [facility] 05-28-2024 08:02-0500 Body mass index (BMI) [Ratio] 31.16 kg/m2 Claudia Adrienne RD Work Phone: [facility] 05-28-2024 08:02-0500 Body weight 95.71 kg Claudia Sheppardjaney HELM Work Phone: [facility] 05-18-2024 08:03-0500 Body mass index (BMI) [Ratio] 31.16 kg/m2 Claudia Sheppardjaney RD Work Phone: [facility] 05-18-2024 08:03-0500 Body weight 95.[address] Work Phone: [facility] 03-29-2024 09:53-0400 Body height 175.3 cm Abigail Mcdermott MD Work Phone: [facility] 03-29-2024 09:53-0400 Body mass index (BMI) [Ratio] 35.38 kg/m2 Abigail Mcdermott MD Work Phone: [facility] 03-29-2024 09:53-0400 Body weight 108.68 kg Abigail Mcdermott MD Work Phone: [facility] 03-29-2024 09:53-0400 Diastolic blood pressure 70 mm[Hg] Abigail Mcdermott MD Work Phone: [facility] 03-29-2024 09:53-0400 Heart rate 87 /min Abigail Mcdermott MD Work Phone: [facility] 03-29-2024 09:53-0400 Systolic blood pressure 122 mm[Hg] Abigail Mcdermott MD Work Phone: [facility] 03-13-2024 13:59-0400 Body height 175.[address] 1 [facility] 03-13-2024 13:59-0400 Body mass index (BMI) [Ratio] 37.8 kg/m2 Pst 1 [facility] 03-13-2024 13:59-0400 Body temperature 98.8 [degF] Pst 1 [facility] 03-13-2024 13:59-0400 Body weight 116.12 kg [address] 1 [facility] 03-13-2024 13:59-0400 Diastolic blood pressure 86 mm[Hg] Pst 1 [facility] 03-13-2024 13:59-0400 Heart rate 64 /min Pst 1 [facility] 03-13-2024 13:59-0400 Respiratory rate 14 /min Pst 1 [facility] 03-13-2024 13:59-0400 SaO2% (BldA) [Mass fraction] 99 % Pst 1 [facility] 03-13-2024 13:59-0400 Systolic blood pressure 127 mm[Hg] Pst 1 [facility] 03-12-2024 07:20-0400 Body height 175.3 cm Castro Parks TELLERS SUPER[employer]OR[employer] Work Phone: [facility] 03-12-2024 07:20-0400 Body mass index (BMI) [Ratio] 37.51 kg/m2 Castro Parks TELLERS SUPER[employer]OR[employer] Work Phone: [facility] 03-12-2024 07:20-0400 Body weight 115.21 kg Castro Parks TELLERS SUPERVISOR[employer] Work Phone: [facility] 02-17-2024 12:52-0400 Body height 175.3 cm Abigail Mcdermott MD Work Phone: [facility] 02-17-2024 12:52-0400 Body mass index (BMI) [Ratio] 37.54 kg/m2 Abigail Mcdermott MD Work Phone: [facility] 02-17-2024 12:52-0400 Body weight 115.3 kg Abigail Mcdermott MD Work Phone: [facility] 02-17-2024 12:52-0400 Diastolic blood pressure 74 mm[Hg] Abigail Mcdermott MD Work Phone: [facility] 02-17-2024 12:52-0400 Heart rate 83 /min Abigail Mcdermott MD Work Phone: [facility] 02-17-2024 12:52-0400 SaO2% (BldA) [Mass fraction] 97 % Abigail Mcdermott MD Work Phone: [facility] 02-17-2024 12:52-0400 Systolic blood pressure 108 mm[Hg] Abigail Mcdermott MD Work Phone: [facility] 02-08-2024 08:24-0400 Body height 175.3 cm Rosalia Gromovsky TELLERS SUPER[employer]OR[employer] Work Phone: [facility] 02-08-2024 08:24-0400 Body mass index (BMI) [Ratio] 37.36 kg/m2 Rosalia Gromovsky TELLERS SUPERVISOR[employer] Work Phone: [facility] 02-08-2024 08:24-0400 Body weight 114.76 kg Rosalia Gromovsky TELLERS SUPERVISOR[employer] Work Phone: [facility] 02-07-2024 08:59-0400 Body height 175.[address] Work Phone: [facility] 02-07-2024 08:59-0400 Body mass index (BMI) [Ratio] 37.36 kg/m2 Nerissa [address] Work Phone: [facility] 02-07-2024 08:59-0400 Body weight 114.[address] Work Phone: [facility] 01-31-2024 07:36-0400 Body height 175.3 cm Rosalia Gromovsky TELLERS SUPER[employer]OR[employer] Work Phone: [facility] 01-31-2024 07:36-0400 Body mass index (BMI) [Ratio] 36.92 kg/m2 Rosalia Gromovsky TELLERS SUPER[employer]OR[employer] Work Phone: [facility] 01-31-2024 07:36-0400 Body weight 113.4 kg Rosalia Gromovsky TELLERS SUPER[employer]OR[employer] Work Phone: [facility] 01-30-2024 08:16-0400 Body height 175.3 cm David Charlene MD Work Phone: [facility] 01-30-2024 08:16-0400 Body mass index (BMI) [Ratio] 38.1 kg/m2 David Chang MD Work Phone: [facility] 01-30-2024 08:16-0400 Body weight 117.03 kg David Chang MD Work Phone: [facility] 01-30-2024 08:16-0400 Diastolic blood pressure 82 mm[Hg] David Chang MD Work Phone: [facility] 01-30-2024 08:16-0400 Heart rate 110 /min David Chang MD Work Phone: [facility] 01-30-2024 08:16-0400 SaO2% (BldA) [Mass fraction] 97 % David Chang MD Work Phone: [facility] 01-30-2024 08:16-0400 Systolic blood pressure 130 mm[Hg] David Chang MD Work Phone: [facility] 01-04-2024 07:40-0400 Body height 175.3 [address] Work Phone: [facility] 01-04-2024 07:40-0400 Body mass index (BMI) [Ratio] 38.4 kg/m2 Nerissa [address] Work Phone: [facility] 01-04-2024 07:40-0400 Body weight 117.[address] Work Phone: [facility] 12-09-2023 08:40-0400 Body height 175.[address] Work Phone: [facility] 12-09-2023 08:40-0400 Body mass index (BMI) [Ratio] 39.72 kg/m2 Nerissa [address] Work Phone: [facility] 12-09-2023 08:40-0400 Body weight 122.02 [address] Work Phone: [facility] 12-07-2023 14:58-0400 Body height 175.3 cm Abigail Mcdermott MD Work Phone: [facility] 12-07-2023 14:58-0400 Body mass index (BMI) [Ratio] 39.84 kg/m2 Abigail Mcdermott MD Work Phone: [facility] 12-07-2023 14:58-0400 Body weight 122.38 kg Abigail Mcdermott MD Work Phone: [facility] 12-07-2023 14:58-0400 Diastolic blood pressure 84 mm[Hg] Abigail Mcdermott MD Work Phone: [facility] 12-07-2023 14:58-0400 Heart rate 88 /min Abigail Mcdermott MD Work Phone: [facility] 12-07-2023 14:58-0400 Systolic blood pressure 126 mm[Hg] Abigail Mcdermott MD Work Phone: [facility] 12-06-2023 09:03-0400 Body height 175.3 cm Frantz Orellana MD Work Phone: [facility] 12-06-2023 09:03-0400 Body mass index (BMI) [Ratio] 39.87 kg/m2 Frantz Orellana MD Work Phone: [facility] 12-06-2023 09:03-0400 Body temperature 98.01 [degF] Frantz Orellana MD Work Phone: [facility] 12-06-2023 09:03-0400 Body weight 122.47 kg Frantz Orellana MD Work Phone: [facility] 12-06-2023 09:03-0400 Diastolic blood pressure 86 mm[Hg] Frantz Orellana MD Work Phone: [facility] 12-06-2023 09:03-0400 Heart rate 91 /min Frantz Orellana MD Work Phone: [facility] 12-06-2023 09:03-0400 Respiratory rate 18 /min Frantz Orellana MD Work Phone: [facility] 12-06-2023 09:03-0400 SaO2% (BldA) [Mass fraction] 99 % Frantz Orellana MD Work Phone: [facility] 12-06-2023 09:03-0400 Systolic blood pressure 142 mm[Hg] Frantz Orellana MD Work Phone: [facility] 10-24-2023 11:20-0400 Body height 175.[address] Work Phone: [facility] 10-24-2023 11:20-0400 Body mass index (BMI) [Ratio] 36.48 kg/m2 Claudia Guillaume RD Work Phone: [facility] 10-24-2023 11:20-0400 Body weight 112.[address] Work Phone: [facility] 10-05-2023 09:05-0400 Body mass index (BMI) [Ratio] 35.74 kg/m2 Rosalia Gaviria APRN.TSO Work Phone: [facility] 10-05-2023 09:05-0400 Body weight 109.77 kg Rosalia Gaviria APRN.TSO Work Phone: [facility] 07-19-2022 08:49-0500 Body temperature 97.5 [degF] Ericka Allen APRN.TSO Work Phone: [facility] 07-19-2022 08:49-0500 Body weight 108.86 kg Ericka Allen APRN.TSO Work Phone: [facility] 07-19-2022 08:49-0500 Diastolic blood pressure 96 mm[Hg] Ericka Allen APRN.TSO Work Phone: [facility] 07-19-2022 08:49-0500 Heart rate 98 /min Ericka Allen APRN.TSO Work Phone: [facility] 07-19-2022 08:49-0500 Respiratory rate 16 /min Ericka Allen APRN.TSO Work Phone: [facility] 07-19-2022 08:49-0500 SaO2% (BldA) [Mass fraction] 98 % Ericka Allen APRN.TSO Work Phone: [facility] 07-19-2022 08:49-0500 Systolic blood pressure 138 mm[Hg] Ericka Allen APRN.TSO Work Phone: [facility] 12-13-2021 14:12-0400 Diastolic blood pressure 78 mm[Hg] Dr. Karina Gonzalez Work Phone: [facility] Work Phone: 12-13-2021 14:12-0400 Heart rate 82 /min Dr. Karina Gonzalez Work Phone: [facility] Work Phone: 12-13-2021 14:12-0400 Respiratory rate 16 /min Dr. Karina Gonzalez Work Phone: [facility] Work Phone: 12-13-2021 14:12-0400 SaO2% (BldA) [Mass fraction] 97 % Dr. Karina Gonzalez Work Phone: [facility] Work Phone: 12-13-2021 14:12-0400 Systolic blood pressure 119 mm[Hg] Dr. Karina Gonzalez Work Phone: [facility] Work Phone: 12-13-2021 11:13-0400 Body height 175.[address] Karina Gonzalez Work Phone: [facility] Work Phone: 12-13-2021 11:13-0400 Body mass index (BMI) [Ratio] 36.1 kg/m2 Dr. Karina Gonzalez Work Phone: [facility] Work Phone: 12-13-2021 11:13-0400 Body temperature 97.5 [degF] Dr. Karina Gonzalez Work Phone: [facility] Work Phone: 12-13-2021 11:13-0400 Body weight 111.[address] Karina Gonzalez Work Phone: [facility] Work Phone: 10-30-2021 13:55-0400 Body height 175.3 cm Lore Plotts TELLERS SUPERVISOR.CNM Work Phone: [facility] 10-30-2021 13:55-0400 Body weight 112.49 kg Lore Plotts TELLERS SUPERVISOR.CNM Work Phone: [facility] 10-30-2021 13:55-0400 Diastolic blood pressure 100 mm[Hg] Lore Plotts TELLERS SUPERVISOR.CNM Work Phone: [facility] 10-30-2021 13:55-0400 Systolic blood pressure 126 mm[Hg] Lore Plotts TELLERS SUPERVISOR.CNM Work Phone: [facility] 10-26-2021 07:59-0400 Body height 175.3 cm Mabel Miller MD Work Phone: [facility] 10-26-2021 07:59-0400 Body weight 108.86 kg Mabel Miller MD Work Phone: [facility] 07-29-2021 11:46-0500 Body height 175.[address] Karina Gonzalez Work Phone: [facility] Work Phone: 07-29-2021 11:46-0500 Body mass index (BMI) [Ratio] 36.1 kg/m2 Dr. Karina Gonzalez Work Phone: [facility] Work Phone: 07-29-2021 11:46-0500 Body temperature 97 [degF] Dr. Karina Gonzalez Work Phone: [facility] Work Phone: 07-29-2021 11:46-0500 Body weight 111.[address] Karina Gonzalez Work Phone: [facility] Work Phone: 07-29-2021 11:46-0500 Diastolic blood pressure 86 mm[Hg] Dr. Karina Gonzalez Work Phone: [facility] Work Phone: 07-29-2021 11:46-0500 Heart rate 74 /min Dr. Karina Gonzalez Work Phone: [facility] Work Phone: 07-29-2021 11:46-0500 Respiratory rate 18 /min Dr. Karina Gonzalez Work Phone: [facility] Work Phone: 07-29-2021 11:46-0500 SaO2% (BldA) [Mass fraction] 97 % Dr. Karina Gonzalez Work Phone: [facility] Work Phone: 07-29-2021 11:46-0500 Systolic blood pressure 129 mm[Hg] Dr. Karina Gonzalez Work Phone: [facility] Work Phone: 07-24-2021 09:57-0500 Diastolic blood pressure 78 mm[Hg] Dr. Karina Gonzalez Work Phone: [facility] Work Phone: 07-24-2021 09:57-0500 Heart rate 80 /min Dr. Karina Gonzalez Work Phone: [facility] Work Phone: 07-24-2021 09:57-0500 Respiratory rate 16 /min Dr. Karina Gonzalez Work Phone: [facility] Work Phone: 07-24-2021 09:57-0500 SaO2% (BldA) [Mass fraction] 97 % Dr. Karina Gonzalez Work Phone: [facility] Work Phone: 07-24-2021 09:57-0500 Systolic blood pressure 117 mm[Hg] Dr. Karina Gonzalez Work Phone: [facility] Work Phone: 07-24-2021 07:19-0500 Body mass index (BMI) [Ratio] 36.9 kg/m2 Dr. Karina Gonzalez Work Phone: [facility] Work Phone: 07-24-2021 07:19-0500 Body temperature 98.7 [degF] Dr. Karina Gonzalez Work Phone: [facility] Work Phone: 07-24-2021 07:19-0500 Body weight 113.[address] Karina Gonzalez Work Phone: [facility] Work Phone: Encounters Encounter Date Encounter Type Care Provider Facility Start: 04-04-2025 End: 04-04-2025 ambulatory [place] [place] Start: 03-25-2025 End: 03-25-2025 ambulatory CLAUDIA GUILLAUME [place] [facility] Start: 03-07-2025 End: 03-07-2025 ambulatory Karina Gonzalez Facility:[facility] Start: 03-07-2025 End: 03-07-2025 ambulatory Neymar PERALTA Facility:[facility] Start: 02-22-2025 End: 02-22-2025 Telephone encounter Claudia Guillaume RD Work Phone: [facility] Comment on above: Appointment (LVM & M CM to r/s 03/22/2025 with Claudia. ) Start: 02-13-2025 End: 02-13-2025 ambulatory Karina Gonzalez Facility:[facility] Start: 02-13-2025 End: 02-13-2025 ambulatory Karina Gonzalez Facility:[facility] Start: 01-23-2025 End: 01-23-2025 ambulatory Karina Gonzalez Facility:[facility] Start: 01-23-2025 End: 01-23-2025 ambulatory Karina Gonzalez Facility:[facility] Start: 01-09-2025 End: 01-09-2025 ambulatory Karina Gonzalez Facility:[facility] Start: 12-16-2024 End: 12-17-2024 ambulatory Castro Parks APRN.TSO Work Phone: [facility] Start: 12-16-2024 End: 12-17-2024 Patient encounter procedure Castro Parks APRN.TSO Work Phone: [facility] Comment on above: 12/21 appointment? Start: 11-21-2024 ambulatory Karina Gonzalez Facility:[facility] Start: 11-13-2024 End: 11-13-2024 ambulatory AJ EGAN Facility:[id number] Start: 11-01-2024 End: 11-01-2024 ambulatory Karina Gonzalez Facility:[facility] Start: 10-12-2024 End: 10-12-2024 ambulatory Karina Gonzalez Facility:[facility] Start: 10-12-2024 End: 10-12-2024 ambulatory Karina Gonzalez Facility:[facility] Start: 09-26-2024 End: 09-26-2024 ambulatory Karina Gonzalez Facility:[facility] Start: 09-21-2024 End: 09-21-2024 ambulatory AJ EGAN Facility:[id number] Start: 09-19-2024 End: 09-19-2024 Office outpatient visit 25 minutes Abigail Mcdermott MD Work Phone: [facility] Comment on above: S/P laparoscopic sle lito gastrectomy (Primary Dx); Hypertension, unspecified type; Hyperlipidemia, unspecified hyperlipidemia type; NAFLD (nonalcoholic fatty liver disease); Pre-diabetes; Hypothyroidism, unspecified type; Bipolar affective disorder, remission status unspecified (HCC) Start: 09-19-2024 End: 09-19-2024 Patient encounter procedure Claudia Guillaume RD Work Phone: [facility] Comment on above: Established Patient Start: 09-19-2024 End: 09-19-[address] Work Phone: [facility] Start: 09-11-2024 End: 09-12-2024 Emergency department patient visit Karina Gonzalez Facility:[facility] Start: 08-28-2024 End: 08-28-2024 ambulatory Karina Gonzalez Facility:[facility] Start: 08-17-2024 End: 08-17-2024 Office outpatient visit 40 minutes Tejal Valdes APRN.TSO Work Phone: [facility] Comment on above: Overweight (Primary Dx); S/P laparoscopic sleeve gastrectomy; NAFLD (nonalcoholic fatty liver disease); Hypothyroidism, unspecified type; Hypertension, unspecified type; Hyperlipidemia, unspecified hyperlipidemia type Start: 08-17-2024 End: 08-17-2024 ambulatory TEJAL VALDES Facility:[facility] Start: 08-07-2024 End: 08-07-2024 ambulatory Tejal Valdes APRN.TSO Work Phone: [facility] Start: 08-07-2024 End: 08-07-2024 Patient encounter procedure Tejal Valdes APRN.TSO Work Phone: [facility] Comment on above: Tirzepatide Start: 07-31-2024 End: 07-31-2024 ambulatory Karina Gonzalez Facility:[facility] Start: 07-18-2024 End: 07-18-2024 ambulatory Karina Gonzalez Facility:[facility] Start: 07-11-2024 End: 07-11-2024 ambulatory Karina Gonzalez Facility:[facility] Start: 06-22-2024 End: 06-22-2024 Patient encounter procedure Claudia Guillaume RD Work Phone: [facility] Comment on above: Dietary counseling a nd surveillance (Primary Dx) Start: 06-22-2024 End: 06-22-2024 Telemedicine consultation with patient Claudia Guillaume RD Work Phone: [facility] Start: 06-22-2024 End: 06-22-2024 Office outpatient visit 15 minutes Tejal Valdes APRN.TSO Work Phone: [facility] Comment on above: S/P laparoscopic sle lito gastrectomy (Primary Dx); Overweight; Thrombocytopenia (HCC) Start: 06-22-2024 End: 06-22-2024 ambulatory CLAUDIA GUILLAUME [place] [facility] Start: 06-19-2024 End: 06-19-2024 Telephone encounter Tejal Valdes APRN.TSO Work Phone: [facility] Start: 06-15-2024 End: 06-15-2024 ambulatory TEJAL VALDES Facility:[facility] Start: 05-30-2024 End: 05-30-2024 Telemedicine consultation with patient Neena Pike PSYD Work Phone: [facility] Start: 05-30-2024 End: 05-30-2024 ambulatory NEENA PIKE Facility:[id number] Comment on above: Eating disorder, uns pecified type (Primary Dx); Bipolar affective disorder, remission status unspecified (HCC) Start: 05-28-2024 End: 05-28-2024 Telephone encounter Claudia Guillaume RD Work Phone: [facility] Comment on above: Appointment Start: 05-28-2024 End: 05-28-2024 Patient encounter procedure Claudia Guillaume RD Work Phone: [facility] Comment on above: Dietary counseling a nd surveillance (Primary Dx) Start: 05-28-2024 End: 05-28-2024 Telemedicine consultation with patient Claudia Guillaume RD Work Phone: [facility] Start: 05-28-2024 End: 05-28-2024 ambulatory CLAUDIA GUILLAUME [place] [facility] Start: 05-22-2024 End: 05-22-2024 ambulatory Karina Gonzalez Facility:[facility] Start: 05-18-2024 End: 05-18-2024 Unlisted evaluation and management service Tejal Valdes APRN.TSO Work Phone: [facility] Comment on above: S/P laparoscopic sle lito gastrectomy (Primary Dx); Hypothyroidism, unspecified type; Bipolar affective disorder, remission status unspecified ([facility]); Prediabetes Start: 05-18-2024 End: 05-18-2024 Patient encounter procedure Claudia Guillaume RD Work Phone: [facility] Comment on above: Dietary counseling a nd surveillance (Primary Dx) Start: 05-18-2024 End: 05-18-2024 Telemedicine consultation with patient Claudia Sheppardjaney HELM Work Phone: [facility] Start: 05-18-2024 End: 05-18-2024 ambulatory TEJAL VALDES Facility:[facility] Start: 05-17-2024 End: 05-18-2024 E-mail encounter from caregiver Ccf Provider [facility] Start: 05-17-2024 End: 05-18-2024 Patient encounter procedure Ccf Provider [facility] Comment on above: vitamin D/PTH Start: 05-11-2024 End: 05-11-2024 ambulatory CASTRO PARKS Facility:[facility] Start: 05-09-2024 End: 05-09-2024 ambulatory Abigail Mcdermott MD Work Phone: [facility] Start: 05-09-2024 End: 05-09-2024 Patient encounter procedure Abigail Mcdermott MD Work Phone: [facility] Comment on above: Upset stomach Start: 04-27-2024 End: 04-27-2024 ambulatory LORE JANG Facility:[facility] Start: 04-27-2024 End: 04-27-2024 Subsequent hospital visit by physician Screen Mammo [facility] Comment on above: Encounter for screen ing mammogram for malignant neoplasm of breast [Z12.31] Start: 04-25-2024 End: 04-25-2024 Telephone encounter Neena Pike PSYD Work Phone: [facility] Comment on above: Appointment Start: 04-24-2024 End: 04-24-2024 [facility] Neena Pike PSYD Work Phone: [facility] Comment on above: Eating disorder, uns pecified type (Primary Dx); Bipolar affective disorder, remission status unspecified (HCC) Start: 04-19-2024 End: 04-19-2024 ambulatory Lore Jang APRN.CNM Work Phone: OB/Gynecology Comment on above: Mammogram Start: 04-17-2024 End: 04-17-2024 ambulatory Kurtis Lydia Frausto Facility:[facility] Start: 04-03-2024 End: 04-05-2024 ambulatory Abigail Mcdermott MD Work Phone: [facility] Start: 04-03-2024 End: 04-05-2024 Patient encounter procedure Abigail Mcdermott MD Work Phone: [facility] Comment on above: Leave Start: 03-30-2024 End: 03-30-2024 Telephone encounter Abigail Mcdermott MD Work Phone: [facility] Comment on above: Medication Problem Start: 03-29-2024 End: 03-29-[address] Work Phone: [facility] Start: 03-29-2024 End: 03-29-2024 Follow-up encounter Claudia Guillaume RD Work Phone: [facility] Comment on above: Post Op Follow Up Start: 03-29-2024 End: 03-29-2024 Patient encounter procedure Abigail Mcdermott MD Work Phone: [facility] Comment on above: S/P laparoscopic sle lito gastrectomy (Primary Dx); Hypertension, unspecified type; Hyperlipidemia, unspecified hyperlipidemia type; NAFLD (nonalcoholic fatty liver disease); Pre-diabetes; Hypothyroidism, unspecified type; Bipolar affective disorder, remission status unspecified (HCC) Start: 03-21-2024 End: 03-21-2024 Telephone encounter Castro Parks APRN.CNP Work Phone: [facility] Comment on above: Surgical Followup Start: 03-16-2024 End: 03-16-2024 Admission to same day surgery center Abigail Mcdermott MD Work Phone: [facility] Comment on above: Updated Surgery Arri lisa Time Start: 03-16-2024 End: 03-16-2024 E-mail encounter from caregiver Abigail Mcdermott MD Work Phone: [facility] Start: 03-13-2024 End: 03-13-2024 Admission to [facility] 1 Pre Surgical Testing Start: 03-13-2024 End: 03-13-2024 Preprocedural examination done Pst 1 [facility] Start: 03-13-2024 End: 03-13-2024 ambulatory Sheila Nowak APRN.CNP Work Phone: Pre Surgical Testing Comment on above: Body mass index 37.0 -37.9, adult (Primary Dx); Primary hypertension; Hyperlipidemia, unspecified hyperlipidemia type; Non-alcoholic fatty liver disease; Acquired hypothyroidism; Pre-diabetes; Medical marijuana use; Pre-op examination; Hypokalemia due to excessive gastrointestinal loss of potassium PAT INSTRUCTIONS Start: 03-13-2024 End: 03-13-2024 E-mail encounter from caregiver Sheila Nowak APRN.CNP Work Phone: Pre Surgical Testing Start: 03-13-2024 End: 03-13-2024 Patient encounter procedure Castro Parks APRN.CNP Work Phone: [facility] Comment on above: Update Start: 03-12-2024 Preprocedural examination done Pst 1 [facility] Start: 03-12-2024 End: 03-12-2024 Patient encounter procedure Castro Parks APRN.TSO Work Phone: [facility] Comment on above: Class 2 obesity with body mass index (BMI) of 37.0 to 37.9 in adult, unspecified obesity type, unspecified whether serious comorbidity present (Primary Dx) Start: 03-12-2024 End: 03-12-2024 Telemedicine consultation with patient Castro Caceresiram JIN Work Phone: [facility] Start: 03-06-2024 End: 03-06-2024 ambulatory AJ GIL MD-DMD Facility:[id number] Start: 03-04-2024 End: 03-05-2024 Refill Rosalia Gaviria APRN.TSO Work Phone: [facility] Comment on above: Refill Request Start: 02-29-2024 End: 02-29-2024 Patient encounter procedure Castro Parks APRN.TSO Work Phone: [facility] Comment on above: Class 2 obesity with body mass index (BMI) of 37.0 to 37.9 in adult, unspecified obesity type, unspecified whether serious comorbidity present (Primary Dx) Start: 02-29-2024 End: 02-29-2024 Telemedicine consultation with patient Castro Parks APRN.TSO Work Phone: [facility] Start: 02-17-2024 End: 02-17-2024 Patient encounter procedure Abigail Mcdermott MD Work Phone: [facility] Comment on above: Class 2 obesity with body mass index (BMI) of 37.0 to 37.9 in adult, unspecified obesity type, unspecified whether serious comorbidity present (Primary Dx); Hypertension, unspecified type; Hyperlipidemia, unspecified hyperlipidemia type; NAFLD (nonalcoholic fatty liver disease); Bipolar 2 disorder (HCC); Hypothyroidism, unspecified type; Pre-diabetes; Chronic diarrhea; Medical marijuana use Body mass index 37.0 -37.9, adult (Primary Dx); Hypertension, unspecified type; Hyperlipidemia, unspecified hyperlipidemia type; NAFL (nonalcoholic fatty liver); Unspecified hypothyroidism; Pre-diabetes; Medical marijuana use Start: 02-15-2024 End: 02-15-2024 Telephone encounter Abigail Mcdermott MD Work Phone: [facility] Comment on above: BSTOP brochure Medical Clearance Start: 02-08-2024 End: 02-08-2024 Patient encounter procedure Rosalia Gaviria APRN.TSO Work Phone: [facility] Comment on above: Class 2 obesity with body mass index (BMI) of 37.0 to 37.9 in adult, unspecified obesity type, unspecified whether serious comorbidity present (Primary Dx); Abnormal kidney function; Vitamin D deficiency; Medical marijuana use Start: 02-08-2024 End: 02-08-2024 Telemedicine consultation with patient Rosalia Be Khadra JIN Work Phone: [facility] Start: 02-07-2024 End: 02-07-2024 E-mail encounter from caregiver Rosalia Be Khadra JIN Work Phone: [facility] Start: 02-07-2024 End: 02-07-[address] Work Phone: [facility] Start: 02-07-2024 End: 02-07-2024 Patient encounter procedure Rosalia Gaviria APRN.TSO Work Phone: [facility] Comment on above: Results Established Patient Start: 02-06-2024 End: 02-06-2024 ambulatory KARINA GONZALEZ Facility:[facility] Start: 01-31-2024 End: 01-31-2024 Patient encounter procedure Rosalia Gaviria APRN.CNP Work Phone: [facility] Comment on above: Class 2 severe obesi ty with serious comorbidity and body mass index (BMI) of 39.0 to 39.9 in adult, unspecified obesity type (HCC) (Primary Dx); Vitamin D deficiency; Abnormal kidney function; Hypertension, unspecified type; Hyperlipidemia, unspecified hyperlipidemia type; ALESSANDRO (obstructive sleep apnea); Marijuana use Start: 01-31-2024 End: 01-31-2024 Telemedicine consultation with patient Rosalia Be Khadra FORDTSO Work Phone: [facility] Start: 01-30-2024 End: 01-30-2024 Patient encounter procedure David Chang MD Work Phone: [facility] Comment on above: Preop cardiovascular exam (Primary Dx); Class 2 obesity with body mass index (BMI) of 35.0 to 35.9 in adult, unspecified obesity type, unspecified whether serious comorbidity present; Hypertension, unspecified type Start: 01-30-2024 End: 01-30-2024 Patient encounter status David Chang MD Work Phone: [facility] Start: 01-23-2024 ambulatory Frantz Orellana MD Work Phone: Pulmonary Medicine Comment on above: Sleep Test Start: 01-20-2024 ambulatory UNKNOWN PROVIDER Facili ty:[facility] Start: 01-20-2024 End: 01-20-2024 Subsequent hospital visit by physician [facility] Work Phone: Radiology Comment on above: Class 2 severe obesi ty with serious comorbidity and body mass index (BMI) of 39.0 to 39.9 in adult, unspecified obesity type (HCC) [E66.01, Z68.39] Start: 01-11-2024 End: 01-12-2024 [facility] Neena Pike BERTIN Work Phone: [facility] Comment on above: Eating disorder, uns pecified type (Primary Dx); Bipolar affective disorder, remission status unspecified (HCC) Start: 01-04-2024 [facility] Work Phone: Neurology Start: 01-04-2024 End: 01-04-2024 Patient encounter procedure Nerissa [address] [facility] [facility] Comment on above: Dietary counseling a nd surveillance (Primary Dx) Start: 01-04-2024 End: 01-04-2024 Telemedicine consultation with patient Nerissa [address] Work Phone: [facility] Start: 12-20-2023 End: 12-20-2023 ambulatory KARINA GONZALEZ Facility:[facility] Start: 12-19-2023 E-mail encounter fro m caregiver Rosalia Gaviria APRN.CNP Work Phone: [facility] Start: 12-19-2023 Patient encounter procedure Rosalia Gaviria TELLERS SUPERVISOR.TSO Work Phone: [facility] Comment on above: Results Start: 12-14-2023 End: 12-14-2023 ambulatory KARINA GONZALEZ Facility:[facility] Start: 12-12-2023 Patient encounter procedure Ccf Provider [facility] Start: 12-09-2023 End: 12-09-2023 Patient encounter procedure Nerissa Alva RD Work Phone: [facility] Comment on above: Dietary counseling a nd surveillance (Primary Dx) Start: 12-09-2023 End: 12-09-2023 Telemedicine consultation with patient Nerissa Alva RD Work Phone: [facility] Start: 12-07-2023 End: 12-07-2023 Patient encounter procedure Abigail Mcdermott MD Work Phone: [facility] Comment on above: Class 2 severe obesi ty with serious comorbidity and body mass index (BMI) of 39.0 to 39.9 in adult, unspecified obesity type (HCC) (Primary Dx); Hypertension, unspecified type; Hyperlipidemia, unspecified hyperlipidemia type; Bipolar 2 disorder (HCC); Hypothyroidism, unspecified type; Chronic diarrhea; NAFLD (nonalcoholic fatty liver disease); Prediabetes Start: 12-07-2023 Telephone encounter Rosalia coronado TELLERS SUPERVISOR.TSO Work Phone: [facility] Comment on above: Patient Update (Anjum atric Benefits Investigation ) Start: 12-06-2023 Telephone encounter Abigail joseph MD Work Phone: [facility] Comment on above: Appointment Start: 12-06-2023 End: 12-06-2023 ambulatory FRANTZ ORELLANA Facility:[facility] Start: 12-06-2023 End: 12-06-2023 Patient encounter procedure Frantz Orellana MD Work Phone: Pulmonary Medicine Comment on above: Pre-op evaluation (P rimary Dx); Acquired hypothyroidism; Primary hypertension; Nephrolithiasis; Non-alcoholic fatty liver disease; Pre-diabetes; Central retinal vein occlusion with macular edema of right eye; Class 2 severe obesity due to excess calories with serious comorbidity and body mass index (BMI) of 36.0 to 36.9 in adult (HCC) Start: 12-06-2023 End: 12-06-2023 Preprocedural examination done Frantz Orellana MD Work Phone: [facility] Start: 11-29-2023 E-mail encounter fro m caregiver Rosalia Gaviria TELLERS SUPERVISOR.TSO Work Phone: [facility] Start: 11-29-2023 Patient encounter procedure Rosalia Gaviria APRN.TSO Work Phone: [facility] Comment on above: Ultrasound Start: 11-25-2023 End: 11-25-2023 ambulatory ROSALIA GAVIRIA Facility:[facility] Start: 11-25-2023 End: 11-25-2023 Subsequent hospital visit by physician [facility] Work Phone: Radiology Comment on above: Class 2 obesity with body mass index (BMI) of 35.0 to 35.9 in adult, unspecified obesity type, unspecified whether serious comorbidity present [E66.9, Z68.35] Start: 10-24-2023 End: 10-24-2023 Patient encounter procedure Claudia Guillaume RD Work Phone: [facility] Comment on above: Class 2 obesity with body mass index (BMI) of 36.0 to 36.9 in adult, unspecified obesity type, unspecified whether serious comorbidity present (Primary Dx) Start: 10-24-2023 End: 10-24-2023 Telemedicine consultation with patient Claudia Guillaume RD Work Phone: [facility] Start: 10-06-2023 Telephone encounter Rosalia coronado APRN.TSO Work Phone: [facility] Comment on above: Patient Update; Appo intment (EXCLUDED BARIATRIC ON PLAN) Start: 10-05-2023 End: 10-05-2023 [facility] Rosalia Gaviria APRN.TSO Work Phone: [facility] Comment on above: Class 2 obesity with body mass index (BMI) of 35.0 to 35.9 in adult, unspecified obesity type, unspecified whether serious comorbidity present (Primary Dx); Hypertension, unspecified type; Bipolar 2 disorder (HCC); Hyperlipidemia, unspecified hyperlipidemia type Start: 09-28-2023 End: 09-28-2023 [facility] Neena Pike PSYD Work Phone: [facility] Bariat[facility] Department Comment on above: Eating disorder, uns pecified type (Primary Dx); Bipolar affective disorder, remission status unspecified (HCC) Start: 09-20-2023 Telephone encounter Rosalia coronado APRN.TSO Work Phone: [facility] Start: 08-29-2023 Telephone encounter Rosalia coronado APRN.TSO Work Phone: [facility] Comment on above: Patient Update (Bene fits update- pathway Black) Patient Update Start: 07-27-2022 Telephone encounter [facility] Provider [facility] Comment on above: External Referrals/r esources Start: 07-19-2022 End: 07-19-2022 Patient encounter procedure Ericka Allen APRN.TSO Work Phone: [facility] Comment on above: Sore throat (Primary Dx); Strep throat Start: 07-12-2022 ambulatory Mabel Miller MD Work Phone: [facility] Comment on above: Ovulation Med Start: 07-12-2022 Telephone encounter Mabel price MD Work Phone: Reproductive Endocrinology Infertility Comment on above: asking for a refill of Letrozole, no period since february Start: 01-29-2022 End: 01-29-[address] Karina Gonzalez Work Phone: [facility] Work Phone: Start: 01-29-2022 End: 01-29-[address] Karina Gonzalez Work Phone: [facility] Start: 12-30-2021 End: 12-30-[address] Karina Gonzalez Work Phone: [facility] Start: 12-25-2021 End: 12-25-[address] Karina Gonzalez Work Phone: [facility] Start: 12-23-2021 Telephone encounter Roosevelt Hogan giselerene LESLIE.TSO Work Phone: Reproductive Endocrinology Infertility Comment on above: Refill Request Start: 12-21-2021 End: 12-21-[address] Karina Gonzalez Work Phone: [facility] Start: 12-18-2021 End: 12-18-[address] Karina Gonzalez Work Phone: [facility] Start: 12-13-2021 End: 12-13-2021 Emergency department patient [facility] Dr. [facility]ina Gonzalez [facility] Start: 11-23-2021 End: 11-23-[address] Karina Gonzalez Work Phone: [facility] Start: 11-20-2021 End: 11-20-[address] Karina Gonzalez Work Phone: [facility] Start: 11-03-2021 ambulatory Mabel Miller MD Work Phone: [facility] Start: 11-03-2021 Follow-up encounter Mabel price MD Work Phone: Reproductive Endocrinology Infertility Comment on above: Follow Up Start: 11-03-2021 Telephone encounter Mabel price MD Work Phone: Reproductive Endocrinology Infertility Comment on above: Question Start: 11-02-2021 Telephone encounter Mabel price MD Work Phone: Reproductive Endocrinology Infertility Comment on above: Results Orders Start: 10-30-2021 End: 10-30-2021 Patient encounter procedure Lore Jang LESLIE.CNM Work Phone: OB/Gynecology Comment on above: Encounter for screen ing mammogram for malignant neoplasm of breast (Primary Dx); Encounter for gynecological examination without abnormal finding; Encounter for screening for malignant neoplasm of cervix; Special screening examination for human papillomavirus (HPV); Secondary anovulatory infertility; Class 2 obesity with body mass index (BMI) of 36.0 to 36.9 in adult, unspecified obesity type, unspecified whether serious comorbidity present Start: 10-30-2021 End: 10-30-2021 Patient encounter status Lore Jang LESLIE.CNM Work Phone: OB/Gynecology Start: 10-29-2021 Telephone encounter Mabel price MD Work Phone: OB/Gynecology Comment on above: Results Start: 10-26-2021 End: 10-26-2021 ambulatory Mabel Miller MD Work Phone: Reproductive Endocrinology Infertility Comment on above: Female infertility ( Primary Dx) Start: 10-26-2021 End: 10-26-2021 Telemedicine consultation with patient Mabel Miller MD Work Phone: [facility] Start: 10-02-2021 End: 10-02-[address] Karina Gonzalez Work Phone: [facility] Start: 09-21-2021 End: 09-21-[address] Karina Gonazlez Work Phone: [facility] Start: 09-14-2021 End: 09-14-[address] Karina Gonzalez Work Phone: [facility] Start: 09-04-2021 End: 09-04-[address] [facility] Start: 07-29-2021 End: 07-29-2021 Emergency department patient visit Dr. Karina Gonzalez Work Phone: [facility]-Emergency Department Start: 07-24-2021 End: 07-24-[address] Karina Gonzalez Work Phone: [facility]-Cat Scan, [facility] Start: 07-09-2021 Non-patient / Non-visit Dr. Lewis Gonzalez Work Phone: [facility] Procedures Date Procedure Procedure Detail Performing Clinician Start: 01-30-2024 Ecg routine ecg w/least 12 lds w/i&r David Chang MD Work Phone: Start: 01-20-2024 Radiologic exam upr gi trc double contrast study Abigail Mcdermott MD Work Phone: Start: 07-19-2022 STREP A MOLECULAR (POC) Nicolle garcia TELLERS SUPERVISOR.TSO Work Phone: Start: 09-04-[address] Karina gao Work Phone: Start: 09-04-[address] Karina Gonzalez Work Phone: Start: 07-29-2021 Computed tomography of abdomen and pelvis with intravenous contrast Dr. Karina Gonzalez Work Phone: Start: 07-24-2021 Biopsy/Inj or Needle Placement Dr. Karina Gonzalez Work Phone: Start: 03-31-2015 End: 05-28-2016 H/O: section Previous section Rosalia Gaviria TELLERS SUPERVISOR.TSO Work Phone: Urine culture Dr. Karina Gonzalez Work Phone: Plan of Treatment Date Care Activity Detail Author Start: 10-30-2026 HPV TESTING HPV TESTING [facility] Start: 10-30-2026 PAP TESTING PAP TESTING [facility] Start: 10-30-2026 Screening for malignant neoplasm of cervix [facility] Start: 04-09-2026 BP Controlled (<130/80) BP Controlled (<130/80) [facility] Start: 04-27-2025 Screening for malignant neoplasm of breast Mammogram Screening [facility] Start: 03-29-2025 BP Controlled (<130/80) BP Controlled (<130/80) [facility] Start: 03-22-2025 End: 03-22-2025 Patient encounter procedure 03/22/2025 8:00 AM EDT [facility] DEPARTMENT [address] [place], [place] [id number] Claudia Guillaume, RD 1 [facility], [address] [address] 1 yr P/O-Bypass 03/19/24[facility] Comment on above: 1 yr P/O-Bypass 03/19/24[facility] Start: 02-16-2025 BP Controlled (<130/80) BP Controlled (<130/80) [facility] Start: 02-11-2025 Influenza vaccination Influenza Vaccine (#1) [facility] Start: 12-21-2024 End: 12-21-2024 Patient encounter procedure 12/21/2024 8:00 AM EDT [facility] BARIATRIC DEPARTMENT [address] [place], [place] [id number] Castro Parks, TELLERS SUPERVISOR.TSO 1 [place], [place] [id number] 9 mo P/O-Bypass 03/19/24[facility] Comment on above: 9 mo P/O-Bypass 03/19/24[facility] Start: 10-03-2024 End: 10-03-2024 Patient encounter procedure 10/03/2024 10:00 AM EDT Office Visit [facility] DEPARTMENT [address] [place], [place] [id number] Rosalia Gaviria, TELLERS SUPERVISOR.TSO 1 [place], [place] [id number] 7wk f/u-med follow up(per AG leave at 1hour) [facility] Comment on above: 7wk f/u-med follow up(per AG leave at 1h our) Start: 09-19-2024 End: 09-19-2024 Patient encounter procedure [facility] DEPARTMENT Comment on above: wt check-6 Month P/O-Bypass 03/19/24-Brennan an 6 Month P/O-Bypass 1 -Ashia Start: 09-18-2024 End: 12-18-2024 25-hydroxyvitamin D3 [Mass/volume] in Serum or Plasma VITAMIN D 25 HYDROXY Lab Routine S/P laparoscopic sleeve gastrectomy Expected: 09/18/2024, Expires: 12/18/2024 [facility] Comment on above: Expected: 09/18/2024, Expires: Start: 09-18-2024 End: 12-18-2024 Basic metabolic 2000 panel - Serum or Plasma BASIC METABOLIC PANEL Lab Routine S/P laparoscopic sleeve gastrectomy Expected: 09/18/2024, Expires: 12/18/2024 [facility] Work Phone: Comment on above: Expected: 09/18/2024, Expires: Start: 09-18-2024 End: 12-18-2024 CBC panel - Blood by Automated count COMPLETE BLOOD COUNT Lab Routine S/P laparoscopic sleeve gastrectomy Expected: 09/18/2024, Expires: 12/18/2024 [facility] Comment on above: Expected: 09/18/2024, Expires: Start: 09-18-2024 End: 12-18-2024 Cobalamin (Vitamin B12) [Mass/volume] in Serum or Plasma VITAMIN B12 Lab Routine S/P laparoscopic sleeve gastrectomy Expected: 09/18/2024, Expires: 12/18/2024 [facility] Comment on above: Expected: 09/18/2024, Expires: Start: 09-18-2024 End: 12-18-2024 Ferritin [Mass/volume] in Serum or Plasma FERRITIN Lab Routine S/P laparoscopic sleeve gastrectomy Expected: 09/18/2024, Expires: 12/18/2024 [facility] Comment on above: Expected: 09/18/2024, Expires: Start: 09-18-2024 End: 12-18-2024 Folate [Mass/volume] in Serum or Plasma FOLATE, SERUM Lab Routine S/P laparoscopic sleeve gastrectomy Expected: 09/18/2024, Expires: 12/18/2024 [facility] Comment on above: Expected: 09/18/2024, Expires: Start: 09-18-2024 End: 12-18-2024 Iron and Iron binding capacity panel - Serum or Plasma IRON AND TIBC Lab Routine S/P laparoscopic sleeve gastrectomy Expected: 09/18/2024, Expires: 12/18/2024 [facility] Comment on above: Expected: 09/18/2024, Expires: Start: 09-18-2024 End: 12-18-2024 Parathyrin.intact [Mass/volume] in Serum or Plasma PTH INTACT Lab Routine S/P laparoscopic sleeve gastrectomy Expected: 09/18/2024, Expires: 12/18/2024 [facility] Comment on above: Expected: 09/18/2024, Expires: Start: 09-18-2024 End: 12-18-2024 Retinol [Mass/volume] in Serum or Plasma VITAMIN A/RETINOL Lab Routine S/P laparoscopic sleeve gastrectomy Expected: 09/18/2024, Expires: 12/18/2024 [facility] Comment on above: Expected: 09/18/2024, Expires: Start: 09-18-2024 End: 12-18-2024 VITAMIN B1 (THIAMINE), WHOLE BLOOD VITAMIN B1 (THIAMINE), WHOLE BLOOD Lab Routine S/P laparoscopic sleeve gastrectomy Expected: 09/18/2024, Expires: 12/18/2024 [facility] Comment on above: Expected: 09/18/2024, Expires: Start: 09-18-2024 End: 12-18-2024 Zinc [Mass/volume] in Serum or Plasma ZINC BLD Lab Routine S/P laparoscopic sleeve gastrectomy Expected: 09/18/2024, Expires: 12/18/2024 [facility] Comment on above: Expected: 09/18/2024, Expires: Start: 06-22-2024 End: 06-22-2024 Patient encounter procedure [facility]IC DEPARTMENT Comment on above: 1 mo f/u 3 Month P/O-Bypass 1 -Ashia - 1 mo f/u 3 Month P/O-Bypass 1 -Ashia Start: 05-30-2024 End: 05-30-2024 Follow-up encounter 05/30/2024 8:00 AM [facility] [address] [place] [address] Neena Pike PSYD [address] [place], [place] [id number] 1 Month Follow Up [facility] Comment on above: 1 Month Follow Up Start: 05-28-2024 End: 05-28-2024 Patient encounter procedure 05/28/2024 8:00 AM [facility] BARIATRIC DEPARTMENT [address] [place] [address] Claudia Guillaume, RD [address] [address] 1 wk f/u [facility] Comment on above: 1 wk f/u Start: 05-18-2024 End: 08-17-2024 25-hydroxyvitamin D3 [Mass/volume] in Serum or Plasma VITAMIN D 25 HYDROXY Lab Routine S/P laparoscopic sleeve gastrectomy Expected: 05/18/2024, Expires: 08/17/2024 [facility] Work Phone: Comment on above: Expected: 05/18/2024, Expires: Start: 05-18-2024 End: 08-17-2024 Basic metabolic 2000 panel - Serum or Plasma BASIC METABOLIC PANEL Lab Routine S/P laparoscopic sleeve gastrectomy Expected: 05/18/2024, Expires: 08/17/2024 [facility] Comment on above: Expected: 05/18/2024, Expires: Start: 05-18-2024 End: 08-17-2024 CBC panel - Blood by Automated count COMPLETE BLOOD COUNT Lab Routine S/P laparoscopic sleeve gastrectomy Expected: 05/18/2024, Expires: 08/17/2024 [facility] Comment on above: Expected: 05/18/2024, Expires: Start: 05-18-2024 End: 08-17-2024 Cobalamin (Vitamin B12) [Mass/volume] in Serum or Plasma VITAMIN B12 Lab Routine S/P laparoscopic sleeve gastrectomy Expected: 05/18/2024, Expires: 08/17/2024 [facility] Comment on above: Expected: 05/18/2024, Expires: Start: 05-18-2024 End: 08-17-2024 Ferritin [Mass/volume] in Serum or Plasma FERRITIN Lab Routine S/P laparoscopic sleeve gastrectomy Expected: 05/18/2024, Expires: 08/17/2024 [facility] Comment on above: Expected: 05/18/2024, Expires: Start: 05-18-2024 End: 08-17-2024 Folate [Mass/volume] in Serum or Plasma FOLATE, SERUM Lab Routine S/P laparoscopic sleeve gastrectomy Expected: 05/18/2024, Expires: 08/17/2024 [facility] Comment on above: Expected: 05/18/2024, Expires: Start: 05-18-2024 End: 08-17-2024 Hemoglobin A1c in Blood HEMOGLOBIN A1C Lab Routine Prediabetes Expected: 05/18/2024, Expires: 08/17/2024 [facility] Comment on above: Expected: 05/18/2024, Expires: Start: 05-18-2024 End: 08-17-2024 Iron and Iron binding capacity panel - Serum or Plasma IRON AND TIBC Lab Routine S/P laparoscopic sleeve gastrectomy Expected: 05/18/2024, Expires: 08/17/2024 [facility] Comment on above: Expected: 05/18/2024, Expires: Start: 05-18-2024 End: 08-17-2024 Thyrotropin [Units/volume] in Serum or Plasma THYROID STIMULATING HORMONE Lab Routine S/P laparoscopic sleeve gastrectomy Hypothyroidism, unspecified type Expected: 05/18/2024, Expires: 08/17/2024 [facility] Comment on above: Expected: 05/18/2024, Expires: Start: 05-18-2024 End: 08-17-2024 VITAMIN B1 (THIAMINE), WHOLE BLOOD VITAMIN B1 (THIAMINE), WHOLE BLOOD Lab Routine S/P laparoscopic sleeve gastrectomy Expected: 05/18/2024, Expires: 08/17/2024 [facility] Comment on above: Expected: 05/18/2024, Expires: Start: 05-18-2024 End: 05-18-2024 Patient encounter procedure [facility] BARIATRIC DEPARTMENT Comment on above: 6 wk P/O-Bypass 03/19/24Ashia Start: 04-28-2024 End: 07-28-2024 25-hydroxyvitamin D3 [Mass/volume] in Serum or Plasma VITAMIN D 25 HYDROXY Lab Routine S/P laparoscopic sleeve gastrectomy Expected: 04/28/2024, Expires: 07/28/2024 [facility] Comment on above: Expected: 04/28/2024, Expires: Start: 04-28-2024 End: 07-28-2024 Basic metabolic 2000 panel - Serum or Plasma BASIC METABOLIC PANEL Lab Routine S/P laparoscopic sleeve gastrectomy Expected: 04/28/2024, Expires: 07/28/2024 [facility] Comment on above: Expected: 04/28/2024, Expires: Start: 04-28-2024 End: 07-28-2024 CBC panel - Blood by Automated count COMPLETE BLOOD COUNT Lab Routine S/P laparoscopic sleeve gastrectomy Expected: 04/28/2024, Expires: 07/28/2024 [facility] Comment on above: Expected: 04/28/2024, Expires: Start: 04-28-2024 End: 07-28-2024 Cobalamin (Vitamin B12) [Mass/volume] in Serum or Plasma VITAMIN B12 Lab Routine S/P laparoscopic sleeve gastrectomy Expected: 04/28/2024, Expires: 07/28/2024 [facility] Comment on above: Expected: 04/28/2024, Expires: Start: 04-28-2024 End: 07-28-2024 Ferritin [Mass/volume] in Serum or Plasma FERRITIN Lab Routine S/P laparoscopic sleeve gastrectomy Expected: 04/28/2024, Expires: 07/28/2024 [facility] Comment on above: Expected: 04/28/2024, Expires: Start: 04-28-2024 End: 07-28-2024 Folate [Mass/volume] in Serum or Plasma FOLATE, SERUM Lab Routine S/P laparoscopic sleeve gastrectomy Expected: 04/28/2024, Expires: 07/28/2024 [facility] Comment on above: Expected: 04/28/2024, Expires: Start: 04-28-2024 End: 07-28-2024 Iron and Iron binding capacity panel - Serum or Plasma IRON AND TIBC Lab Routine S/P laparoscopic sleeve gastrectomy Expected: 04/28/2024, Expires: 07/28/2024 [facility] Comment on above: Expected: 04/28/2024, Expires: Start: 04-28-2024 End: 07-28-2024 Parathyrin.intact [Mass/volume] in Serum or Plasma PTH INTACT Lab Routine S/P laparoscopic sleeve gastrectomy Expected: 04/28/2024, Expires: 07/28/2024 [facility] Comment on above: Expected: 04/28/2024, Expires: Start: 04-28-2024 End: 07-28-2024 Retinol [Mass/volume] in Serum or Plasma VITAMIN A/RETINOL Lab Routine S/P laparoscopic sleeve gastrectomy Expected: 04/28/2024, Expires: 07/28/2024 [facility] Comment on above: Expected: 04/28/2024, Expires: Start: 04-28-2024 End: 07-28-2024 VITAMIN B1 (THIAMINE), WHOLE BLOOD VITAMIN B1 (THIAMINE), WHOLE BLOOD Lab Routine S/P laparoscopic sleeve gastrectomy Expected: 04/28/2024, Expires: 07/28/2024 [facility] Comment on above: Expected: 04/28/2024, Expires: Start: 04-28-2024 End: 07-28-2024 Zinc [Mass/volume] in Serum or Plasma ZINC BLD Lab Routine S/P laparoscopic sleeve gastrectomy Expected: 04/28/2024, Expires: 07/28/2024 [facility] Work Phone: Comment on above: Expected: 04/28/2024, Expires: Start: 04-27-2024 End: 04-27-2024 Patient encounter procedure 04/27/2024 10:10 AM EST Appointment Mammogram [address] [place], [place] [id number] Mammogram Start: 04-24-2024 End: 04-24-2024 Admission to same day surgery center 04/24/2024 10:00 AM EST [facility] BARIATRIC [address] [place] [address] Neena Pike, PSYD [address] [place] [address] f/u from surgery [facility] Comment on above: f/u from surgery Start: 03-29-2024 End: 03-29-2024 Patient encounter procedure [facility] BARIATRIC DEPARTMENT Comment on above: 1 Week P/O-Sleeve 03/20/24Evelyne Start: 03-20-2024 End: 06-19-2024 25-hydroxyvitamin D3 [Mass/volume] in Serum or Plasma VITAMIN D 25 HYDROXY Lab Routine Vitamin D deficiency Expected: 03/20/2024, Expires: 06/19/2024 [facility] Work Phone: Comment on above: Expected: 03/20/2024, Expires: Start: 03-20-2024 End: 06-19-2024 Parathyrin.intact [Mass/volume] in Serum or Plasma PTH INTACT Lab Routine Vitamin D deficiency Expected: 03/20/2024, Expires: 06/19/2024 [facility] Comment on above: Expected: 03/20/2024, Expires: Start: 03-20-2024 End: 03-20-2024 Admission to same day surgery center 03/20/2024 7:30 AM EDT - 03/20/2024 10:15 AM EDT Surgery [place] [facility] [address] [place] [address] Abigail Mcdermott MD [address] [address] LAPAROSCOPIC LONGITUDINAL GASTRECTOMY, GASTRIC RESTRICTIVE PROCEDURE [facility] Comment on above: LAPAROSCOPIC LONGITUDINAL GASTRECTOMY, G ASTRIC RESTRICTIVE PROCEDURE Start: 03-20-2024 End: 03-20-2024 Esophagogastroduodenoscopy transoral diagnostic EGD Body mass index 37.0-37.9, adult Hypertension, unspecified type Hyperlipidemia, unspecified hyperlipidemia type NAFL (nonalcoholic fatty liver) Unspecified hypothyroidism Pre-diabetes Medical marijuana use 03/20/2024 7:30 AM EDT [place] Start: 03-20-2024 End: 03-20-2024 Laps gstrc rstrictiv px longitudinal gastrectomy LAPAROSCOPIC LONGITUDINAL GASTRECTOMY, GASTRIC RESTRICTIVE PROCEDURE Body mass index 37.0-37.9, adult Hypertension, unspecified type Hyperlipidemia, unspecified hyperlipidemia type NAFL (nonalcoholic fatty liver) Unspecified hypothyroidism Pre-diabetes Medical marijuana use 03/20/2024 7:30 AM EDT [facility] Start: 03-20-2024 Subsequent hospital visit by physician [facility] Comment on above: Body mass index 37.0-37.9, adult [Z68.37 ] Body mass index 37.0 -37.9, adult [Z68.37], Hypertension, unspecified type [I10], Hyperlipidemia, unspecified hyperlipidemia type [E78.5], NAFL (nonalcoholic fatty liver) [K76.0], Unspecified hypothyroidism [E03.9], Pre-diabetes [R73.03], Medical marijuana use [Z79.899] Start: 03-19-2024 End: 03-19-2024 Admission to same day surgery center 03/19/2024 12:15 PM EDT - 03/19/2024 3:00 PM EDT Surgery [facility] 1 [place] [address] Abigail Mcdermott MD [address] [phone] LAPAROSCOPIC LONGITUDINAL GASTRECTOMY, GASTRIC RESTRICTIVE PROCEDURE [facility] Comment on above: LAPAROSCOPIC LONGITUDINAL GASTRECTOMY, G ASTRIC RESTRICTIVE PROCEDURE Start: 03-19-2024 End: 03-19-2024 Esophagogastroduodenoscopy transoral diagnostic EGD Body mass index 37.0-37.9, adult Hypertension, unspecified type Hyperlipidemia, unspecified hyperlipidemia type NAFL (nonalcoholic fatty liver) Unspecified hypothyroidism Pre-diabetes Medical marijuana use 03/19/2024 12:15 PM EDT [facility] Start: 03-19-2024 End: 03-19-2024 Laps gstrc rstrictiv px longitudinal gastrectomy LAPAROSCOPIC LONGITUDINAL GASTRECTOMY, GASTRIC RESTRICTIVE PROCEDURE Body mass index 37.0-37.9, adult Hypertension, unspecified type Hyperlipidemia, unspecified hyperlipidemia type NAFL (nonalcoholic fatty liver) Unspecified hypothyroidism Pre-diabetes Medical marijuana use 03/19/2024 12:15 PM EDT [facility] Start: 03-19-2024 Subsequent hospital visit by physician 03/19/2024 12:15 PM EDT Hospital Encounter [facility] 1 [place] [address] Abigail Mcdermott MD [address] [address] Body mass index 37.0-37.9, adult [Z68.37], Hypertension, unspecified type [I10], Hyperlipidemia, unspecified hyperlipidemia type [E78.5], NAFL (nonalcoholic fatty liver) [K76.0], Unspecified hypothyroidism [E03.9], Pre-diabetes [R73.03], Medical marijuana use [Z79.899] [facility] Comment on above: Body mass index 37.0-37.9, adult [Z68.37 ], Hypertension, unspecified type [I10], Hyperlipidemia, unspecified hyperlipidemia type [E78.5], NAFL (nonalcoholic fatty liver) [K76.0], Unspecified hypothyroidism [E03.9], Pre-diabetes [R73.03], Medical marijuana use [Z79.899] Start: 03-13-2024 End: 03-13-2024 ambulatory 03/13/2024 2:20 PM EDT PAT [facility] [place] [address] 1. LAPAROSCOPIC LONGITUDINAL GASTRECTOMY, GASTRIC RESTRICTIVE PROCEDURE Pre Surgical Testing Comment on above: 1. LAPAROSCOPIC LONGITUDINAL GASTRECTOMY , GASTRIC RESTRICTIVE PROCEDURE Start: 03-12-2024 End: 03-12-2024 Patient encounter procedure 03/12/2024 10:30 AM EDT [facility] BARIATRIC DEPARTMENT [address] [place] [address] Castro Parks, TELLERS SUPERVISOR.TSO [address] [place] [address] Pre Op Visit-Sleeve 03/20/24-[facility]RIC [facility] Comment on above: Pre Op Visit-Sleeve 03/20/24[facility] Start: 03-12-2024 End: 03-12-2024 Patient encounter procedure 03/12/2024 8:30 AM EDT [facility] BARIATRIC DEPARTMENT [address] [place] [address] Castro Parks, TELLERS SUPERVISOR.TSO 1 [place] [address] Pre Op Visit-Sleeve 03/20/24[facility] BARIATRIC DEPARTMENT Comment on above: Pre Op Visit-Sleeve 03/20/24[facility] Start: 02-29-2024 End: 02-29-2024 Patient encounter procedure 02/29/2024 2:30 PM EDT [facility] BARIATRIC DEPARTMENT [address] [place] [address] Castro Parks, TELLERS SUPERVISOR.TSO [address] [place] [address] Education Class- [facility] BARIATRIC DEPARTMENT Comment on above: Education Class- Start: 02-27-2024 End: 02-27-2024 Patient encounter procedure 02/27/2024 8:00 AM EDT [facility] BARIATRIC DEPARTMENT [address] [place], [place] [phone] Rosalia Gaviria, TELLERS SUPERVISOR.TSO 1 [place], [place] [phone] Mo #5 - BLACK/Cigna/Ashia/6m o- [facility] BARIATRIC DEPARTMENT Comment on above: Mo #5 - BLACK/Cigna/Ashia/6mo- Start: 02-24-2024 End: 02-24-2024 Patient encounter procedure 02/24/2024 9:00 AM EDT Office Visit [facility] BARIATRIC DEPARTMENT 1 [place], [place] [phone] Abigail Mcdermott MD [address] [phone] CONSENT - Mo #6 - BLACK/Cigna/Ashia/6m o- [facility] Comment on above: CONSENT - Mo #6 - BLACK/Cigna/Ashia/6mo - Start: 02-17-2024 End: 02-17-2024 Patient encounter procedure 02/17/2024 1:00 PM EDT Office Visit [facility] BARIATRIC DEPARTMENT 1 [place], [place] [phone] Abigail Mcdermott MD [address] [phone] CONSENT - Mo #6 - BLACK/Cigna/Ashia/6m o- [facility] Comment on above: CONSENT - Mo #6 - BLACK/Cigna/Ashia/6mo - Start: 02-16-2024 End: 05-17-2024 Albumin [Mass/volume] in Serum or Plasma ALBUMIN Lab Routine Class 2 obesity with body mass index (BMI) of 37.0 to 37.9 in adult, unspecified obesity type, unspecified whether serious comorbidity present Expected: 02/16/2024, Expires: 05/17/2024 [facility] Comment on above: Expected: 02/16/2024, Expires: Start: 02-16-2024 End: 05-17-2024 Basic metabolic 2000 panel - Serum or Plasma BASIC METABOLIC PANEL Lab Routine Class 2 obesity with body mass index (BMI) of 37.0 to 37.9 in adult, unspecified obesity type, unspecified whether serious comorbidity present Expected: 02/16/2024, Expires: 05/17/2024 [facility] Comment on above: Expected: 02/16/2024, Expires: Start: 02-16-2024 End: 05-17-2024 CBC panel - Blood by Automated count COMPLETE BLOOD COUNT Lab Routine Class 2 obesity with body mass index (BMI) of 37.0 to 37.9 in adult, unspecified obesity type, unspecified whether serious comorbidity present Expected: 02/16/2024, Expires: 05/17/2024 [facility] Comment on above: Expected: 02/16/2024, Expires: Start: 02-16-2024 End: 05-17-2024 TYPE AND SCREEN,30 DAY TYPE AND SCREEN,30 DAY Blood Bank Routine Class 2 obesity with body mass index (BMI) of 37.0 to 37.9 in adult, unspecified obesity type, unspecified whether serious comorbidity present Expected: 02/16/2024, Expires: 05/17/2024 [facility] Comment on above: Expected: 02/16/2024, Expires: Start: 02-12-2024 Covid-19 Vaccine ( season) Covid-19 Vaccine ( season) [facility] Start: 02-12-2024 Covid-19 Vaccine ( season) Covid-19 Vaccine ( season) [facility] Start: 02-12-2024 Influenza vaccination [facility] Start: 02-08-2024 End: 02-08-2024 Patient encounter procedure 02/08/2024 8:30 AM EDT [facility] BARIATRIC DEPARTMENT [address] [place] [address] Rosalia Gaviria, TELLERS SUPERVISOR.TSO [address] [place] [address] Mo #5 - BLACK/Cigna/Ashia/6m o- [facility] BARIATRIC DEPARTMENT Comment on above: Mo #5 - BLACK/Cigna/Ashia/6mo- Start: 02-07-2024 End: 02-07-2024 Patient encounter procedure 02/07/2024 9:00 AM EDT Education [facility] BARIATRIC DEPARTMENT [address] [place] [address] Nerissa Alva, RD [address] [place] [address] Mo #4 - BLACK/Cigna/Ashia/6m o- [facility] BARIATRIC DEPARTMENT Comment on above: Mo #4 - BLACK/Cigna/Ashia/6mo- Start: 02-06-2024 End: 02-06-2024 ambulatory 02/06/2024 7:15 AM EDT Results Only [facility] [address] [place] [address] [facility] Start: 01-31-2024 End: 05-01-2024 25-hydroxyvitamin D3 [Mass/volume] in Serum or Plasma VITAMIN D 25 HYDROXY Lab Routine Vitamin D deficiency Expected: 01/31/2024, Expires: 05/01/2024 [facility] Work Phone: Comment on above: Expected: 01/31/2024, Expires: 4 Start: 01-31-2024 End: 05-01-2024 NICOTINE & METAB, UR NICOTINE & METAB, UR Lab Routine Class 2 severe obesity with serious comorbidity and body mass index (BMI) of 39.0 to 39.9 in adult, unspecified obesity type (HCC) Expected: 01/31/2024, Expires: 05/01/2024 [facility] Comment on above: Expected: 01/31/2024, Expires: Start: 01-31-2024 End: 05-01-2024 Parathyrin.intact [Mass/volume] in Serum or Plasma PTH INTACT Lab Routine Vitamin D deficiency Expected: 01/31/2024, Expires: 05/01/2024 [facility] Comment on above: Expected: 01/31/2024, Expires: Start: 01-31-2024 End: 05-01-2024 TOXICOLOGY SCREEN, ROUTINE URINE TOXICOLOGY SCREEN, ROUTINE URINE Lab Routine Class 2 severe obesity with serious comorbidity and body mass index (BMI) of 39.0 to 39.9 in adult, unspecified obesity type (HCC) Expected: 01/31/2024, Expires: 05/01/2024 [facility] Comment on above: Expected: 01/31/2024, Expires: 4 Start: 01-31-2024 End: 01-31-2024 Patient encounter procedure 01/31/2024 8:00 AM EDT [facility] BARIATRIC DEPARTMENT [address] [place] [address] Rosalia Gaviria, TELLERS SUPERVISOR.[facility] [address] [place] [address] Mo #4 - MIKE/Evelina/Ashia/6m o- [facility] BARIATRIC DEPARTMENT Comment on above: Familia #4 - MIKE/Evelina/Ashia/6mo- Start: 01-30-2024 End: 01-30-2024 Patient encounter procedure [facility] Comment on above: Pt referred reg Bariatric Surgery assess ment from ACCOUNTING PROFESSIONAL Rosalia Gaviria. nd Pt referred reg Anjum atric Surgery assessment from SHIRA Gaviria. nd EKG jt Start: 01-20-2024 End: 01-20-2024 Patient encounter procedure 01/20/2024 8:30 AM EDT Appointment Radiology [address] [place] [address] Class 2 severe obesity with serious comorbidity and body mass index (BMI) of 39.0 to 39.9 in adult, unspecified obesity type (HCC) [E66.01, Z68.39] Radiology Comment on above: Class 2 severe obesity with serious ramya rbidity and body mass index (BMI) of 39.0 to 39.9 in adult, unspecified obesity type (HCC) [E66.01, Z68.39] Start: 01-12-2024 End: 01-12-2024 Patient encounter procedure 01/12/2024 10:00 AM EDT Office Visit Neurology [address] [place] [address] Primary hypertension [I10] Neurology Comment on above: Primary hypertension [I10] Start: 01-11-2024 End: 01-11-2024 Patient encounter procedure 01/11/2024 8:00 AM EDT [facility] Bariatric Department [address] [address] Neena Pike PSYD [address] [place] [address] New - BLACK/Cigna/Ashia/6m o- [facility] Comment on above: New - BLACK/Cigna/Ashia/6mo- Start: 01-10-2024 End: 01-10-2024 Patient encounter procedure [facility] BARIATRIC [facility] Comment on above: New- Mo #3 - BLACK/Aetna/Ashia/6mo-Self pay till insurance kicks in November 21 2023 New- Mo #3 - BLACK/C igna/Ashia/6mo- Start: 01-04-2024 End: 01-04-2024 Patient encounter procedure 01/04/2024 8:30 AM EDT [facility] BARIATRIC DEPARTMENT [address] [place] [address] Nerissa Alva, RD 1 [place], [place] [phone] New- Mo #3 - BLACK/Cigna/Ashia/6m o- [facility] Comment on above: New- Mo #3 - BLACK/Cigna/Ashia/6mo- Start: 12-19-2023 End: 03-19-2024 Basic metabolic 2000 panel - Serum or Plasma BASIC METABOLIC PANEL Lab Routine Abnormal kidney function Expected: 12/19/2023, Expires: 03/19/2024 [facility] Comment on above: Expected: 12/19/2023, Expires: Start: 12-14-2023 End: 12-14-2023 Patient encounter procedure 12/14/2023 10:00 AM EDT Office Visit Neurology [address] [place] [address] Primary hypertension [I10] Neurology Comment on above: Primary hypertension [I10] Start: 12-09-2023 End: 12-09-2023 Patient encounter procedure 12/09/2023 8:30 AM EDT [facility] BARIATRIC DEPARTMENT 1 [place], [place] [phone] Claudia Guillaume, RD [address] [phone] Mo #2 - BLACK/Cigna/Ashia/6m o- [facility] BARIATRIC DEPARTMENT Comment on above: Mo #2 - BLACK/Cigna/Ashia/6mo- Start: 12-07-2023 End: 12-07-2023 Patient encounter procedure 12/07/2023 3:00 PM EDT Office Visit [facility] BARIATRIC DEPARTMENT 1 [place], [place] [phone] Abigail Mcdermott MD [address] [phone] New- Mo #2- BLACK/Aetna/Ashia/6m o-Self pay till insurance kicks in November 21 2023 [facility] BARIATRIC DEPARTMENT Comment on above: New- Mo #2- BLACK/Aetna/Ashia/6mo-Self pay till insurance kicks in November 21 2023 Start: 12-06-2023 End: 12-06-2023 Patient encounter procedure 12/06/2023 9:00 AM EDT Office Visit Pulmonary Medicine [address] [place] [address] Frantz Orellana MD [address] [place] [phone] New patient - Bariactric Clearance (patient aware of $80.00 copay) Pulmonary Medicine Comment on above: New patient - Bariactric Clearance (sherine ent aware of $80.00 copay) Start: 11-25-2023 End: 11-25-2023 Patient encounter procedure 11/25/2023 7:00 AM EDT Appointment Radiology [address] [place], [place] [address] Class 2 obesity with body mass index (BMI) of 35.0 to 35.9 in adult, unspecified obesity type, unspecified whether serious comorbidity present [E66.9, Z68.35] Radiology Comment on above: Class 2 obesity with body mass index (BM I) of 35.0 to 35.9 in adult, unspecified obesity type, unspecified whether serious comorbidity present [E66.9, Z68.35] Start: 11-16-2023 End: 11-16-2023 Patient encounter procedure 11/16/2023 1:00 PM EDT Office Visit [facility] BARIATRIC DEPARTMENT 1 [place], [place] [phone] Abigail Mcdermott MD [address] [phone] New- Mo #2- BLACK/Aetna/Ashia/6m o [facility] BARIATRIC DEPARTMENT Comment on above: New- Mo #2- BLACK/Aetna/Ashia/6mo Start: 10-24-2023 End: 10-24-2023 Patient encounter procedure 10/24/2023 1:00 PM EDT [facility] BARIATRIC DEPARTMENT 1 [place], [place] [phone] Claudia Guillaume, VOLODYMYR 1 [facility] [address] [place], [place] [phone] [facility] BARIATRIC DEPARTMENT Comment on above: SNA Start: 10-05-2023 End: 01-04-2024 25-hydroxyvitamin D3 [Mass/volume] in Serum or Plasma VITAMIN D 25 HYDROXY Lab Routine Class 2 obesity with body mass index (BMI) of 35.0 to 35.9 in adult, unspecified obesity type, unspecified whether serious comorbidity present Expected: 10/05/2023, Expires: 01/04/2024 [facility] Comment on above: Expected: 10/05/2023, Expires: Start: 10-05-2023 End: 01-04-2024 CBC panel - Blood by Automated count COMPLETE BLOOD COUNT Lab Routine Class 2 obesity with body mass index (BMI) of 35.0 to 35.9 in adult, unspecified obesity type, unspecified whether serious comorbidity present Expected: 10/05/2023, Expires: 01/04/2024 [facility] Work Phone: Comment on above: Expected: 10/05/2023, Expires: Start: 10-05-2023 End: 01-04-2024 Cobalamin (Vitamin B12) [Mass/volume] in Serum or Plasma VITAMIN B12 Lab Routine Class 2 obesity with body mass index (BMI) of 35.0 to 35.9 in adult, unspecified obesity type, unspecified whether serious comorbidity present Expected: 10/05/2023, Expires: 01/04/2024 [facility] Comment on above: Expected: 10/05/2023, Expires: Start: 10-05-2023 End: 01-04-2024 Comprehensive metabolic 2000 panel - Serum or Plasma COMPREHENSIVE METABOLIC PANEL Lab Routine Class 2 obesity with body mass index (BMI) of 35.0 to 35.9 in adult, unspecified obesity type, unspecified whether serious comorbidity present Expected: 10/05/2023, Expires: 01/04/2024 [facility] Comment on above: Expected: 10/05/2023, Expires: Start: 10-05-2023 End: 01-04-2024 Ferritin [Mass/volume] in Serum or Plasma FERRITIN Lab Routine Class 2 obesity with body mass index (BMI) of 35.0 to 35.9 in adult, unspecified obesity type, unspecified whether serious comorbidity present Expected: 10/05/2023, Expires: 01/04/2024 [facility] Comment on above: Expected: 10/05/2023, Expires: Start: 10-05-2023 End: 01-04-2024 Folate [Mass/volume] in Serum or Plasma FOLATE, SERUM Lab Routine Class 2 obesity with body mass index (BMI) of 35.0 to 35.9 in adult, unspecified obesity type, unspecified whether serious comorbidity present Expected: 10/05/2023, Expires: 01/04/2024 [facility] Comment on above: Expected: 10/05/2023, Expires: Start: 10-05-2023 End: 01-04-2024 Hemoglobin A1c in Blood HEMOGLOBIN A1C Lab Routine Class 2 obesity with body mass index (BMI) of 35.0 to 35.9 in adult, unspecified obesity type, unspecified whether serious comorbidity present Expected: 10/05/2023, Expires: 01/04/2024 [facility] Comment on above: Expected: 10/05/2023, Expires: Start: 10-05-2023 End: 01-04-2024 Iron and Iron binding capacity panel - Serum or Plasma IRON AND TIBC Lab Routine Class 2 obesity with body mass index (BMI) of 35.0 to 35.9 in adult, unspecified obesity type, unspecified whether serious comorbidity present Expected: 10/05/2023, Expires: 01/04/2024 [facility] Comment on above: Expected: 10/05/2023, Expires: Start: 10-05-2023 End: 01-04-2024 Lipid 1996 panel - Serum or Plasma LIPID PANEL BASIC Lab Routine Class 2 obesity with body mass index (BMI) of 35.0 to 35.9 in adult, unspecified obesity type, unspecified whether serious comorbidity present Expected: 10/05/2023, Expires: 01/04/2024 [facility] Comment on above: Expected: 10/05/2023, Expires: Start: 10-05-2023 End: 01-04-2024 NICOTINE & METAB, UR NICOTINE & METAB, UR Lab Routine Class 2 obesity with body mass index (BMI) of 35.0 to 35.9 in adult, unspecified obesity type, unspecified whether serious comorbidity present Expected: 10/05/2023, Expires: 01/04/2024 [facility] Comment on above: Expected: 10/05/2023, Expires: Start: 10-05-2023 End: 01-04-2024 Parathyrin.intact [Mass/volume] in Serum or Plasma PTH INTACT Lab Routine Class 2 obesity with body mass index (BMI) of 35.0 to 35.9 in adult, unspecified obesity type, unspecified whether serious comorbidity present Expected: 10/05/2023, Expires: 01/04/2024 [facility] Comment on above: Expected: 10/05/2023, Expires: Start: 10-05-2023 End: 01-04-2024 Retinol [Mass/volume] in Serum or Plasma VITAMIN A/RETINOL Lab Routine Class 2 obesity with body mass index (BMI) of 35.0 to 35.9 in adult, unspecified obesity type, unspecified whether serious comorbidity present Expected: 10/05/2023, Expires: 01/04/2024 [facility] Comment on above: Expected: 10/05/2023, Expires: Start: 10-05-2023 End: 01-04-2024 Thyrotropin [Units/volume] in Serum or Plasma THYROID STIMULATING HORMONE Lab Routine Class 2 obesity with body mass index (BMI) of 35.0 to 35.9 in adult, unspecified obesity type, unspecified whether serious comorbidity present Expected: 10/05/2023, Expires: 01/04/2024 [facility] Comment on above: Expected: 10/05/2023, Expires: Start: 10-05-2023 End: 01-04-2024 TOXICOLOGY SCREEN, ROUTINE URINE TOXICOLOGY SCREEN, ROUTINE URINE Lab Routine Class 2 obesity with body mass index (BMI) of 35.0 to 35.9 in adult, unspecified obesity type, unspecified whether serious comorbidity present Expected: 10/05/2023, Expires: 01/04/2024 [facility] Comment on above: Expected: 10/05/2023, Expires: Start: 10-05-2023 End: 01-04-2024 VITAMIN B1 (THIAMINE), WHOLE BLOOD VITAMIN B1 (THIAMINE), WHOLE BLOOD Lab Routine Class 2 obesity with body mass index (BMI) of 35.0 to 35.9 in adult, unspecified obesity type, unspecified whether serious comorbidity present Expected: 10/05/2023, Expires: 01/04/2024 [facility] Comment on above: Expected: 10/05/2023, Expires: 4 Start: 10-05-2023 End: 01-04-2024 Zinc [Mass/volume] in Serum or Plasma ZINC BLD Lab Routine Class 2 obesity with body mass index (BMI) of 35.0 to 35.9 in adult, unspecified obesity type, unspecified whether serious comorbidity present Expected: 10/05/2023, Expires: 01/04/2024 [facility] Comment on above: Expected: 10/05/2023, Expires: 4 Start: 06-13-2023 Depression Assessment Depression Assessment [facility] Start: 03-15-2023 Urine microalbumin profile DTaP,Tdap,Td Vaccine (2 - Td or Tdap) [facility] Start: 02-11-2023 Covid-19 Vaccine () Covid-19 Vaccine () [facility] Start: 02-11-2023 Influenza vaccination Influenza Vaccine (#1) [facility] Start: 06-13-2022 DEPRESSION ASSESSMENT DEPRESSION ASSESSMENT [facility] Start: 02-11-2022 Influenza vaccination [facility] Start: 12-13-2021 [facility] Work Phone: Start: 10-29-2021 End: 12-29-2021 T4 FREE/FREE THYROX T4 FREE/FREE THYROX Lab Routine Secondary anovulatory infertility Expected: 10/29/2021, Expires: 12/29/2021 [facility] Work Phone: Comment on above: Expected: 10/29/2021, Expires: 2 Start: 10-29-2021 End: 12-29-2021 Thyrotropin [Units/volume] in Serum or Plasma TSH BLD Lab Routine Secondary anovulatory infertility Expected: 10/29/2021, Expires: 12/29/2021 [facility] Work Phone: Comment on above: Expected: 10/29/2021, Expires: 2 Start: 07-24-2021 Biopsy liver needle percutaneous NEEDLE BIOPSY OF LIVER [facility] Work Phone: Start: 2020 Mammography MAMMOGRAM [facility] Start: 2020 Screening for malignant neoplasm of breast Mammogram Screening [facility] Start: 01-24-2019 PAP TESTING PAP TESTING [facility] Start: 2010 HPV TESTING HPV TESTING [facility] Start: 12-28-2007 HPV Vaccine (1 - 3-dose SCDM series) HPV Vaccine (1 - 3-dose SCDM series) [facility] Start: 12-28-1999 Hepatitis B Vaccine (1 of 3 - 19+ 3-dose series) Hepatitis B Vaccine (1 of 3 - 19+ 3-dose series) [facility] Start: 12-28-1999 Urine microalbumin profile DTAP,TDAP,TD (1 - Tdap) [facility] Start: 1998 Annual PCP Team Chronic Disease Visit Annual PCP Team Chronic Disease Visit [facility] Start: 1998 Anxiety Screening Anxiety Screening [facility] Start: 1998 BP Controlled (<130/80) BP Controlled (<130/80) [facility] Start: 1998 Depression Screening Depression Screening [facility] Start: 1998 HEPATITIS C SCREENING HEPATITIS C SCREENING [facility] Start: 1998 Hepatitis C screening Hepatitis C Screening [facility] Start: 1992 Adult depression screening assessment DEPRESSION SCREENING [facility] Start: 1986 PNEUMOCOCCAL (1 - PCV) PNEUMOCOCCAL (1 - PCV) [facility] Start: 1985 COVID-19 VACCINE (#1) COVID-19 VACCINE (#1) [facility] Start: 06-29-1981 COVID-19 VACCINE (#1) COVID-19 VACCINE (#1) [facility] Start: 1980 HEPATITIS B (1 of 3 - 3-dose series) HEPATITIS B (1 of 3 - 3-dose series) [facility] Bacteria identified in Urine by Culture Urine Culture [facility] Work Phone: H&P for surgery H&P FOR SURGERY Procedures Routine Class 2 obesity with body mass index (BMI) of 37.0 to 37.9 in adult, unspecified obesity type, unspecified whether serious comorbidity present Ordered: 02/16/2024 [facility] Work Phone: Comment on above: Ordered: 02/16/2024 HOME SLEEP APNEA TEST (HSAT) GREG E SLEEP APNEA TEST (HSAT) Procedures Routine Primary hypertension Class 2 severe obesity due to excess calories with serious comorbidity and body mass index (BMI) of 36.0 to 36.9 in adult (HCC) 1 Occurrences starting 12/06/2023 [facility] Work Phone: Comment on above: 1 Occurrences starting 12/06/2023 End: 11-29-2022 VINAY SCREENING [place] VINAY SCREENING [place] Radiology Routine Encounter for screening mammogram for malignant neoplasm of breast 1 Occurrences starting 10/30/2021 until 11/29/2022 [facility] Work Phone: Comment on above: 1 Occurrences starting 10/30/2021 until 11/29/2022 End: 05-19-2025 MG Breast Screening VINAY SCREENING Radiology Routine Encounter for screening mammogram for malignant neoplasm of breast 1 Occurrences starting 04/19/2024 until 05/19/2025 [facility] Work Phone: Comment on above: 1 Occurrences starting 04/19/2024 until 05/19/2025 MG Breast Screening VINAY SCREENIN G Radiology Routine Encounter for screening mammogram for malignant neoplasm of breast 04/27/2024 10:07 AM EST [facility] Work Phone: PAP FLUID CERVICAL SCREENING PAP FLUID CERVICAL SCREENING Lab Routine Encounter for screening for malignant neoplasm of cervix Special screening examination for human papillomavirus (HPV) 10/30/2021 2:42 PM EDT [facility] Work Phone: Patient Education [facility] Work Phone: Patient referral [facility] Work Phone: End: 01-05-2025 RF Gastrointestinal tract upper Views W air contrast PO and W barium contrast PO XR UPPER GI ROUTINE DOUBLE CONTRAST/AIR Radiology Routine Class 2 severe obesity with serious comorbidity and body mass index (BMI) of 39.0 to 39.9 in adult, unspecified obesity type (HCC) 1 Occurrences starting 12/07/2023 until 01/05/2025 [facility] Work Phone: Comment on above: 1 Occurrences starting 12/07/2023 until 01/05/2025 End: 11-03-2024 US Abdomen RUQ US ABD RIGHT UPPER QUADRANT Radiology Routine Class 2 obesity with body mass index (BMI) of 35.0 to 35.9 in adult, unspecified obesity type, unspecified whether serious comorbidity present 1 Occurrences starting 10/05/2023 until 11/03/2024 [facility] Comment on above: 1 Occurrences starting 10/05/2023 until 11/03/2024 US Abdomen RUQ US ABD RIGHT UPP ER QUADRANT Radiology Routine Class 2 obesity with body mass index (BMI) of 35.0 to 35.9 in adult, unspecified obesity type, unspecified whether serious comorbidity present 11/25/2023 7:45 AM EDT [facility] Work Phone: [facility] Immunizations Immunization Date Immunization Notes Care Provider Radha [facility] 03-11-2016 influenza, seasonal, injectable Dr. Karina Gonzalez Work Phone: [facility] Work Phone: 03-11-2016 influenza virus vaccine, unspecified formulation 2 Work Phone: [facility] 04-17-2015 RHO(D) fahad rooney in- IV or IM Mabel Miller MD Work Phone: [facility] Work Phone: 04-08-2015 influenza, seasonal, injectable Dr. Karina Gonzalez Work Phone: [facility] Work Phone: 03-02-2013 influenza virus vaccine, unspecified formulation [facility] Provider [facility] Payers Date Payer Category Payer Private Health Insurance [id number] 2023 Private Health Insurance [id number] 2023 Unknown [id number] 2021 Private Health Insurance [employer] CHOICE POS [id number] 2021-Present [phone] [address] [place] [address] POS [id number] 2021 Private Health Insurance [id number] 2008 Self-pay [id number] 1980 Unknown [id number] 2.16.840.1.123557.3.579.2.1 59 1980 Unknown [id number] 2.16.840.1.359926.3.579.2.1 59 1980 Unknown [id number] 2.16.840.1.735821.3.579.2.1 59 Private Health Insurance [id number] Unknown [id number] Unknown [id number] Unknown [id number] 2.16.840.1.261127.3.579.2.4 62 Unknown [id number] 2.16.840.1.911894.3.579.2.4 62 Unknown [id number] 2.16.840.1.563986.3.579.2.4 62 Unknown [id number] 2.16.840.1.899937.3.579.2.4 62 Unknown [id number] 2.16.840.1.133080.3.579.2.4 62 Unknown [id number] 2.16.840.1.201589.3.579.2.4 62 Unknown [id number] 2.16.840.1.466850.3.579.2.4 62 Unknown [id number] 2.16.840.1.087216.3.579.2.4 62 Unknown [id number] 2.16.840.1.332124.3.579.2.4 62 Unknown [id number] 2.16.840.1.671357.3.579.2.4 62 Unknown [id number] 2.16.840.1.812511.3.579.2.4 62 Unknown [id number] 2.16.840.1.768223.3.579.2.4 62 Unknown [id number] 2.16.840.1.352508.3.579.2.4 62 Unknown [id number] 2.16.840.1.663276.3.579.2.4 62 Unknown [id number] 2.16.840.1.340772.3.579.2.4 62 Unknown [id number] 2.16.840.1.754961.3.579.2.4 62 Unknown [id number] 2.16.840.1.081496.3.579.2.4 62 Unknown [id number] 2.16.840.1.778856.3.579.2.4 62 Unknown [id number] 2.16.840.1.845041.3.579.2.4 62 Unknown [id number] 2.16.840.1.201711.3.579.2.4 62 Social History Date Type Detail Facility [facility] Work Phone: Start: 07-29-2021 End: 12-13-2021 Tobacco smoking status WYIS Unknown if ever smoked [facility] Work Phone: Start: 09-08-2020 None [facility] Work Phone: Start: 09-21-2020 With Family [facility] Work Phone: Start: 09-08-2020 Non-smoker [facility] Work Phone: Start: 1980 Sex Assigned At Female [facility] Work Phone: Start: 11-25-2012 End: 07-19-2022 Tobacco smoking status NHIS Ex-smoker [facility] Work Phone: Start: 11-25-2012 End: 12-06-2023 Tobacco use and exposure Smokeless tobacco non-user [facility] Work Phone: Start: 10-26-2021 Alcohol intake Current drinke r of alcohol (finding) [facility] Start: 10-26-2021 End: 12-06-2023 Alcohol intake [facility] Start: 1980 Sex Assigned At Not on file [facility] Start: 10-16-2021 End: 10-30-2021 Exposure to SARS-CoV-2 (event) Not sure [facility] Start: 10-30-2021 End: 09-19-2024 Alcohol intake Ex-drinker (finding) [facility] History of tobacco use Current smoker [facility] Work Phone: Start: 07-19-2022 End: 12-06-2023 Tobacco use panel [facility] Start: 05-14-2012 National Score (1-100), lower number is lower risk 57 [facility] Start: 12-06-2023 Tobacco smoking stat us WYIS Never smoked tobacco [facility] Start: 03-13-2024 Alcohol Comment STOPPED DRINKING 202 [facility] Goals Date Patient Goal Desired Activity /State Personal health goal Personal health goal Personal health goal Personal health goal Personal health goal Personal health goal Functional Status Date Assessment Result Facility 03-20-2024 Are you deaf, or do you have serious difficulty hearing No 03/20/2024 4:15 PM Michell Sanchez RN [facility] 03-20-2024 Are you blind, or do you have serious difficulty seeing, even when wearing glasses No 03/20/2024 4:15 PM Michell Sanchez, AGAPITO [facility] 03-20-2024 Do you have serious difficulty walking or climbing stairs No 03/20/2024 4:15 PM Michell Sanchez, AGAPITO [facility] 03-20-2024 Do you have difficul ty dressing or bathing No 03/20/2024 4:15 PM Michell Sanchez, AGAPITO [facility] 03-20-2024 Because of a physica l, mental, or emotional condition, do you have difficulty doing errands alone such as visiting a physician's office or shopping No 03/20/2024 4:15 PM EDT Michell Wong RN No [facility] Mental Status Date Assessment Result Facility 03-20-2024 Because of a physica l, mental, or emotional condition, do you have serious difficulty concentrating, remembering, or making decisions No 03/20/2024 4:15 PM EDT Michell Wong RN No [facility] 07-24-2021 Cognitive function Voice/Name [facility] Work Phone: 07-24-2021 Cognitive function Level Of Cons ciousness Alert;Appropriate [facility] Work Phone: Clinical Notes 03-31-2015 to 04-04-2025 Telephone Encounter - Michela Burgos - 02/22/2025 3:20 PM EDTTelephone Encounter - Michela Burgos - 02/22/2025 3:20 PM EDRosalia Edge APRN.[facility]O - 09/19/2024 3:30 PM EDTPatient Instructions Note Date & Type Note Facility 04-04-2025 Note HNO ID: [id number] Author: ROSALIA GAVIRIA APRN.KINSEY Service: ? Author Type: Nurse Practitioner Type: Progress Notes Filed: 04/04/2025 10:17 Note Text: BARIATRIC SURGERY CLINIC FOLLOW UP NOTE DISTANCE HEALTH VISIT This Team Access Model visit is a virtual encounter. It required patient-provider interaction for the medical decision making as documented below. Consent was obtained to complete today's distance health visit. I have communicated my name and active licensure. The patient's identity and physical location were verified at the time of this visit. Either the patient or their legal public health representative has been informed of the risks and benefits of -- and alternatives to -- treatment through a remote evaluation and consents to proceed with the evaluation remotely. Name: Mariia Davidson Index Surgery Date of Surgery: 03/19/2024 Surgeon: Dr. Mcdermott Surgical Procedure: Sleeve gastrectomy Pre-surgical weight: 115.2 kg (254 lb) Override Index Surgery Information? No Other Bariatric Surgeries None Visit: 12 months Today's Visit: Wt 67.1 kg (148 lb) BMI 21.86 kg/m2 BMI 21.86 kg/(m2) Last Visit: Wt: 67.1 kg (148 lb) BMI: 21.86 kg/(m2) Total weight loss: 48.1 kg (106 lb) Average 24 hour fluid intake: 64 oz Average 24 hour protein intake: 60 g EXERCISE: nothing formal Fever/Chills: Denies Abdominal Pain: Denies Increased Heart Rate: Denies Bloating/Hiccups: Denies Decreased Urine Output: Denies Nausea/Vomiting: Denies Diarrhea: Denies Constipation: Denies Reflux/Regurgitation: Denies Taking zepbound 2.5 mg per PCP. She is hoping to maintain weight at this point. She does have some anxiety surrounding gaining weight and is open to talking to bariatric psychologist. Had a panniculectomy and 3 breast surgeries over the past year (lift, augmentation, then implants). [place] weight: 76.8 kg (169 lb 5 oz) Excess weight: 38.4 kg (84 lb 11 oz) % of excess body weight lost: 48.1 kg (106 lb) (125.16% of excess weight loss) COMPLICATIONS SINCE LAST VISIT?: NONE DIET INTAKE: tolerates Phase V diet DAILY SUPPLEMENTS: See RD note 03/25/25 Other: N/A Are you attending any Support Groups? No attendance HISTORY REVIEWED (electronic chart updated): - medical history - medications - allergies Current Outpatient Medications Medication Sig tirzepatide, weight loss (ZEPBOUND) 2.5 mg/0.5 mL solution Inject 0.5 mL subcutaneously one time a week. pantoprazole DR (PROTONIX) 40 mg tablet Take 1 tablet by mouth once daily. TO START AFTER SURGERY. Take every day for 6 months after surgery. lamoTRIgine (LAMICTAL) 25 mg tablet Take 50 mg by mouth once daily. bevacizumab 0.625 mg in syringe 0.025 mL (AVASTIN) Use 0.625 mg in the right eye one time only. ondansetron (ZOFRAN) 4 mg tablet Take 1 tablet by mouth every 8 hours as needed for nausea/vomiting (for nausea.). biotin 1 mg cap Take by mouth once daily. vitamin b complex capsule Take 1 capsule by mouth once daily. gabapentin (NEURONTIN) 300 mg capsule Take 300 mg by mouth two times a day. colestipol (COLESTID) 1 gram tablet Take 2 g by mouth daily at bedtime. clonazePAM (KLONOPIN) 1 mg tablet Take 1 mg by mouth two times a day as needed for anxiety. amLODIPine (NORVASC) 5 mg tablet Take 2.5 mg by mouth once daily. lurasidone (LATUDA) 120 mg tablet Take by mouth once daily. POTASSIUM CITRATE ORAL Take 15 mEq by mouth once daily. sertraline (ZOLOFT) 100 mg tablet Take 200 mg by mouth once daily. levothyroxine 50 mcg cap Take 25 mcg by mouth daily before breakfast. No current facility-administered medications for this visit. REVIEW OF SYSTEMS: Review of Systems Constitutional: Negative for chills, fever and malaise/fatigue. Eyes: Negative for blurred vision. Cardiovascular: Negative for chest pain. Gastrointestinal: Negative for abdominal pain, blood in stool, constipation, diarrhea, heartburn, melena, nausea and vomiting. Skin: Negative for rash. Neurological: Negative for dizziness and weakness. Psychiatric/Behavioral: Negative. PHYSICAL EXAM: Wt 67.1 kg (148 lb) LMP 01/15/2024 BMI 21.86 kg/m? GENERAL APPEARANCE: Pleasant, interacts appropriately and in no apparent distress Appropriately groomed, happy, smiling, and interactive. ENT: Oral mucosa pink without lesions/ulcerations; LUNGS: unlabored on room air negative findings: normal respiratory rate and rhythm, no cough ABDOMEN: Obese SKIN: Skin of normal texture, temperature without rashes/lesions/ulcerations. NEURO/PSYCH: Oriented to person, place, time; appropriate insight and judgement. Appropriate affect. ASSESSMENT AND PLAN: Normal post-OP course DISPOSITION: Return 1 year to EST/Standard office visit EDUCATION: Encouraged to continue with healthy lifestyle changes and incorporate cardiovascular and resistance training, Discussed weight loss expectations after bariatric and metabolic surgery, Advised PT (more content not included)... [facility] 03-25-2025 Note HNO ID: [id number] Author: CLAUDIA GUILLAUME RD Service: ? Author Type: Registered Dietitian Type: Progress Notes Filed: 03/25/2025 08:59 Note Text: 12 Month Post-op This patient encounter was completed virtually due to COVID-19 (audio/visual) using a secure, HIPPA compliant video chat software program with the patient's consent. I have communicated my name and active licensure. The patients identity and physical location were verified at the time of this visit. Either the patient or their legal public health representative has been informed of the risks and benefits of -- and alternatives to -- treatment through remote evaluation and consents to proceed with the evaluation remotely. Surgery Date/Surgeon:03/19/24 RENEA, Dr. Ashia Davidson 44 year old female Ht 175.3 cm (5' 9) Wt 67.1 kg (148 lb) LMP 01/15/2024 BMI 21.86 kg/m? 106# lost since surgery 124%EWL based on IBW w/ BMI 25 Pre-surgical weight:254 lbs Tolerating by mouth well: Yes Nausea: No Vomiting: No Constipation: No Diarrhea:No Weak/Shaky/Light-headed: No Estimated Nutrient Intake Average of 3 days' food records: No 24 hour recall/Usual intake: Yes 24 hr recall: B: 2 HB eggs L: cottage cheese, cheese stick D: chicken F: 64 Food/beverage intolerance: chipotle Exercise: walking mainly - ADL, no formal exercise Intake of obesity endorsing foods: limited Alcohol/Caffeine/Sugar/Carbonati on Beverages in Diet: less caffeine Frequent grazing: no Satiety between meals: yes Attendance at support group: not at this time Food Insecurity Screening: Food Insecurity: No Food Insecurity (03/25/2025) Hunger Vital Sign Worried About Running Out of Food in the Last Year: Never true Ran Out of Food in the Last Year: Never true Vitamins: MV: SpokenLayer 45 Calcium citrate: citracal - only taking one per day - needs 2x/ day B complex - still taking Vitamin D: 5000 international unit(s) -advised to switch to every other day (discussed with ACCOUNTING PROFESSIONAL and agreed) *taking daily - advised to reduce to every other day Hair supplements + fiber + age defying vitamins + magnesium Can d/c additional iron, zinc, selenium supplements as bariatric MV covers every thing she needs. Needs to incorporate more food in her diet to help with hair growth -- was given a list of supplements from back roller. Written information provided and reviewed: nutrition tips Reinforced Behaviors:see below Patient presents for follow up, she states things are going well and is continuing to lose weight. At this time, she is 124% EWL (BMI 21), encouraged weight maintenance and focus on increasing muscle strengthen activities. She continues to use zepbound - on the lowest dose. She stopped using it for a few months but noticed she had gained 4# and freaked out therefore she restarted it. She is scheduled to meet with Dr. Hanny Mendenhall 04/11. Denies daily weights, she is weighing in 1x/week. She occasionally does starches because she wants to focus on more energy based foods, discussed roles of metabolism and importance of all food groups - not just protein. Does report doing a restrictive diet. Her goal weight is 138# as it is the lowest weight per her BMI. She is not eating much - this is most likely due to the surgery in addition to using zepbound. Discussed trying 5-6 small meals per day. Provided suggestions via MCM. simple Met with back roller d/t concerns of hair loss, this is most likely due to her rapid/ongoing weight loss. Discussed that this is normal and by increasing her overall intake, she may see more regrowth. Is not exercising at this time, mostly walking or ADL's. Discussed that she is most likely losing muscle tissue d/t no exercise and limited intake - this can be a negative impact on her weight loss progress/overall health retirement. She did admit to some obsessions related to weight loss and health, will update team. If she loses additional weight, advised to reach out to RD. Plan: f/u RD in 3 months Goals aim for 60g protein daily -- 3 oz protein per meal Blood Pressure < 130/80 formal exercise 5-7x/week as tolerated, goal of 30 minutes OR 150 minutes of activity per week use healthy plate method for meal set up- - prioritizing protein/fiber first and incorporate a starch 2x/day Start time: 8:00 End time: 8:27 Total time spent in direct patient contact = 27 minutes. MNT Billing Type: Re-assess (Units: 2) Claudia Guillaume RD This note was generated using voice recognition technology and may contain grammatical errors. [facility] 02-22-2025 Telephone encounter Note LVM & MCM to r/s 03/22/2025 with Claudia. [facility] 02-22-2025 Miscellaneous Notes LVM & MCM to r/s 03/22/2025 with Claudia. documented in this encounter [facility] 09-19-2024 History of Presen t illness Narrative Date of Surgery: 03/19/2024 Surgeon: Dr. Mcdermott Surgical Procedure: Sleeve gastrectomy Pre-surgical weight: 115.2 kg (254 lb) 63% EWL at 3 month post-op Due for labs, orders placed Rosalia Gaviria APRN.[facility]O BARIATRIC SURGERY CLINIC FOLLOW UP NOTE Date: September 19, 2024 Time: 2:54 PM Mariia Davidson is a 43 year old year old female with obesity (Body mass index is 27.79 kg/m .) who presents to the clinic today for follow up after bariatric surgery. She had demonstrated 63% EWL at 3 month post-op. Today at her 6 month follow up she demonstrates 65 lb 12.8 oz weight loss, which represents 77.70% of excess weight loss. She has been on Zepbound since surgery to help with the food noise she was struggling with after surgery Due for labs, orders placed Clinic Date: 09/19/2024 Mariia Davidson, 43 year old [address] [place] [address] [place] [address] Index Surgery Date of Surgery: 03/19/2024 Surgeon Attending: Abigail Mcdermott MD Surgical Procedure: Sleeve gastrectomy Pre-surgical weight: 115.2 kg (254 lb) Other Bariatric Surgeries None Time Since Surgery: 6 months Extra Procedures: None COMPLICATIONS DURING ADMISSION: None Operative Complications: No Complications Prior to Discharge: No COMPLICATIONS SINCE DISCHARGE?: NONE Estimated body mass index is 27.79 kg/m as calculated from the following: Height as of this encounter: 175.3 cm (5' 9). Weight as of this encounter: 85.4 kg (188 lb 3.2 oz). [place] weight: 76.8 kg (169 lb 5 oz) Excess weight: 38.4 kg (84 lb 11 oz) % of excess body weight lost: 29.8 kg (65 lb 12.8 oz) (77.70% of excess weight loss) Daily approximate Fluid intake: 64 fl oz per 24 hours Daily approximate protein intake: 60 grams per 24 hours Present Activity level: has decreased - had been exercising 2 days a week, but currently is not exercising at all. Have you attended any Support Group? No attendance DIET INTAKE: tolerates Phase V diet DAILY SUPPLEMENTS: Calcium: Calcium Citrate w/ vitamin D (1200 - 1500mg) Multivitamin & Minerals: 1 per day Iron Supplement: included in multi-vitamin Vitamin A: included in multi-vitamin Vitamin B12: 500 mcg B Complex: included in multi-vitamin Biotin: No Vitamin C: included in multi-vitamin Vitamin D3: included in multi-vitamin Vitamin E: included in multi-vitamin Zinc: included in multi-vitamin Other: N/A PAST MEDICAL HISTORY Diagnosis Date bipolar 2 Breast disorder thick breast tissues with mammogram Central vein occlusion of retina (HCC) Chronic diarrhea HTN (hypertension) Hypothyroidism Nephrolithiasis Non-alcoholic fatty liver disease Obesity depression 2011,2013 Pre-diabetes Preeclampsia (HCC) 2011 Rh incompatibility Secondary anovulatory infertility PAST SURGICAL HISTORY Procedure Laterality Date BREAST AUGMENTATION W/PROSTHETIC IMPLANT Bilateral 03/06/2024 BREAST SURGERY HX Bilateral 11/2023 lift DELIVERY ONLY 07/02/2015 , low transverse SECTION HX 2011,2012 CHOLECYSTECTOMY HX 2022 LITHOTRIPSY XTRCORP SHOCK WAVE x 3 FAMILY HISTORY Problem Relation Age of Onset None Mother Hypertension Father Cancer Maternal Grandmother Social History Tobacco Use Smoking status: Never Smokeless tobacco: Never Vaping Use Vaping status: Never Used Substance Use Topics Alcohol use: Not Currently Alcohol/week: 2.0 standard drinks of alcohol Types: 2 Glasses of wine per week Comment: STOPPED DRINKING 2020 Drug use: No Current Outpatient Medications Medication Sig tirzepatide, weight loss (ZEPBOUND) 2.5 mg/0.5 mL solution Inject 0.5 mL subcutaneously one time a week. pantoprazole DR (PROTONIX) 40 mg tablet Take 1 tablet by mouth once daily. TO START AFTER SURGERY. Take every day for 6 months after surgery. lamoTRIgine (LAMICTAL) 25 mg tablet Take 50 mg by mouth once daily. bevacizumab 0.625 mg in syringe 0.025 mL (AVASTIN) Use 0.625 mg in the right eye one time only. ondansetron (ZOFRAN) 4 mg tablet Take 1 tablet by mouth every 8 hours as needed for nausea/vomiting (for nausea.). biotin 1 mg cap Take by mouth once daily. vitamin b complex capsule Take 1 capsule by mouth once daily. gabapentin (NEURONTIN) 300 mg capsule Take 300 mg by mouth two times a day. colestipol (COLESTID) 1 gram tablet Take 2 g by mouth daily at bedtime. clonazePAM (KLONOPIN) 1 mg tablet Take 1 mg by mouth two times a day as needed for anxiety. amLODIPine (NORVASC) 5 mg tablet Take 2.5 mg by mouth once daily. lurasidone (LATUDA) 120 mg tablet Take by mouth once daily. POTASSIUM CITRATE ORAL Take 15 mEq by mouth once daily. sertraline (ZOLOFT) 100 mg tablet Take 200 mg by mouth once daily. levothyroxine 50 mcg cap Take 25 mcg by mouth daily before breakfast. No current facility-administered medications for this visit. ALLERGIES No Known Allergies Review of Systems Constitutional: Negative for chills, diaphoresis, fever and malaise/fatigue. HENT: Negative for congestion, hearing loss, nosebleeds, sinus pain, sore throat and tinnitus. Eyes: Negative for blurred vision, double vision, pain and redness. Respiratory: Negative for cough, hemoptysis, sputum production, shortness of breath and wheezing. Cardiovascular: Negative for chest pain, palpitations, orthopnea, leg swelling and PND. Gastrointestinal: Negative for abdominal pain, blood in stool, constipation, diarrhea, heartburn, nausea and vomiting. Genitourinary: Negative for dysuria, frequency, hematuria and urgency. Musculoskeletal: Negative for back pain, falls, joint pain, myalgias and neck pain. Skin: Negative for itching and rash. Neurological: Negative for dizziness, speech change, focal weakness, seizures, loss of consciousness, weakness and headaches. Endo/Heme/Allergies: Does not bruise/bleed easily. Psychiatric/Behavioral: Negative for depression, hallucinations, memory loss, substance abuse and suicidal ideas. The patient is not nervous/anxious and does not have insomnia. Physical Exam Vitals reviewed. Constitutional: Appearance: Normal appearance. HENT: Head: Normocephalic and atraumatic. Nose: Nose normal. Eyes: General: No scleral icterus. Extraocular Movements: Extraocular movements intact. Conjunctiva/sclera: Conjunctivae normal. Pupils: Pupils are equal, round, and reactive to light. Cardiovascular: Rate and Rhythm: Normal rate. Pulmonary: Effort: Pulmonary effort is normal. No respiratory distress. Skin: General: Skin is warm and dry. Coloration: Skin is not jaundiced or pale. Neurological: General: No focal deficit present. Mental Status: She is alert and oriented to person, place, and time. Psychiatric: Behavior: Behavior normal. Plan IMPRESSION: Mariia Davidson is a 43 year old year old female who presents for follow up of bariatric surgery (Body mass index is 27.79 kg/m .). ASSESSMENT/PLAN: 1. S/P laparoscopic sleeve gastrectomy - ICD9: V45.86, ICD10: Z98.84 (primary diagnosis) - The patient is overall doing very well! She has lost a total of greater than 80 pounds since starting the program and has lost 65 pounds since the time of her surgery - this represents 77% EWL, which exceeds the expected weight loss at the 6 month [place]! - She is not fully tracking protein intake, but was encouraged to continue working on this. - She is not currently exercising, but was encouraged to start exercising again - she was encouraged to strive for a minimum of 150 minutes per week of exercise. - Okay to stop Protonix use as she is now 6 months post op - Continue Zepbound as it is helping with food noise - BASIC METABOLIC PANEL - COMPLETE BLOOD COUNT - FOLATE, SERUM - FERRITIN - PTH INTACT - IRON AND TIBC - VITAMIN A/RETINOL - VITAMIN B1 (THIAMINE), WHOLE BLOOD - VITAMIN B12 - VITAMIN D 25 HYDROXY - ZINC BLD 2. Hypertension, unspecified type - ICD9: 401.9, ICD10: I10 - Continue current medical management 3. Hyperlipidemia, unspecified hyperlipidemia type - ICD9: 272.4, ICD10: E78.5 - Continue current medical management 4. NAFLD (nonalcoholic fatty liver disease) - ICD9: 571.8, ICD10: K76.0 - Encouraged to start exercising again and continue healthy dietary and lifestyle changes 5. Pre-diabetes - ICD9: 790.29, ICD10: R73.03 - Continue current medical management 6. Hypothyroidism, unspecified type - ICD9: 244.9, ICD10: E03.9 - Continue current medical management 7. Bipolar affective disorder, remission status unspecified (HCC) - ICD9: 296.80, ICD10: F31.9 - Continue current medical management Activity: Encouraged to continue healthy lifestyle changes and work towards obtaining at least 150 minutes of exercise per week Diet: Advance diet per Handbook Counseling: Vitamins, okay to stop Protonix, Symptoms of stricture and Ulcer Abigail Mcdermott MD Advanced Laparoscopic and Bariatric Surgery Medical Decision Making: Problems: Moderate: 2+ stable chronic illnesses Data: Unique test(s) ordered: 3+ Discussed management or test w/ external physician/QHCP/source Risk: Moderate: Drug management Medical Decision Making Level: 4 - Moderate documented in this encounter [facility] 09-19-2024 Note HNO ID: [id number] Author: ROSALIA GAVIRIA APRN.TSO Service: ? Author Type: Nurse Practitioner Type: Progress Notes Filed: 09/19/2024 15:28 Note Text: Date of Surgery: 03/19/2024 Surgeon: Dr. Mcdermott Surgical Procedure: Sleeve gastrectomy Pre-surgical weight: 115.2 kg (254 lb) 63% EWL at 3 month post-op Due for labs, orders placed Rosalia Gaviria APRN.TSO [facility] 09-19-2024 History of Presen t illness Narrative 6 Month Post-op Patient seen in office Surgery Date/Surgeon:03/19/24 LSG, Dr. Ashia Davidson 43 year old female Ht 175.3 cm (5' 9) Wt 85.5 kg (188 lb 9.6 oz) LMP 01/15/2024 BMI 27.85 kg/m 65# lost since surgery 77.7%EWL based on IBW w/ BMI 25 Pre-surgical weight: 254 lbs Tolerating by mouth well: Yes Nausea: No Vomiting: No Constipation: No Diarrhea:No Weak/Shaky/Light-headed: No Estimated Nutrient Intake Average of 3 days' food records: No 24 hour recall/Usual intake: Yes 24 hr recall: B: protein shake (30g) L: chicken (7g), cottage cheese (12g), string cheese (7g) D: [employer] pot roast with noodles (21g) S: carrots and ranch F: > 64 Per recall: 77g [address] Food/beverage intolerance: taco seasoning, chipotle, alcohol Exercise: no formal exercise at this time Intake of obesity endorsing foods: limited exercise Alcohol/Caffeine/Sugar/Carbonati on Beverages in Diet: coffee in AM, green tea, no carbonation Frequent grazing: no Satiety between meals: yes Attendance at support group: not at this time Vitamins: MV: SpokenLayer 45 Calcium citrate: bariatric soft chews - unsure of brand - 3 per day - inconsistent B complex - still taking Vitamin D: 5000 international unit(s) -advised to switch to every other day (discussed with ACCOUNTING PROFESSIONAL and agreed) *taking daily Is having labs done tomorrow. Written information provided and reviewed: plate method Reinforced Behaviors: see below Patient presents 6 months s/p LSG at 77% EWL, she is exceeding weight loss projections at this time, congratulated on progress thus far. She is no longer keeping a food journal but is doing her best to get at least 60g protein daily -- per recall meeting protein and fluid goals. Encouraged increasing non-starchy vegetables during meals and using the plate method as a guide. Continues to take zepbound and reports she feels it is helping her. She states she is not endorsing in exercise, at her 3 month follow up she wasn't exercising as consistently either. Reviewed importance of adequate physical activity to aid with weight loss and weight maintenance post-op. Post-op vitamins reviewed, meeting goals post-op, is looking for a calcium citrate alternative since she isn't consistent with her current calcium -- provided suggestions. Plan: follow up w/ RD at 1 year post-op Goals aim for 60g protein daily -- 3 oz protein per meal Blood Pressure < 130/80 formal exercise 5-7x/week as tolerated, goal of 30 minutes OR 150 minutes of activity per week use healthy plate method for meal set up- - prioritizing protein/fiber first Total time in direct patient contact = 15 min. Greater than 50% of the time was spent in counseling and/or coordination of care. Claudia Guillaume RD This note was generated using voice recognition technology and may contain grammatical errors. documented in this encounter [facility] 09-19-2024 Note HNO ID: [id number] Author: CLAUDIA GUILLAUME RD Service: ? Author Type: Registered Dietitian Type: Progress Notes Filed: 09/19/2024 15:33 Note Text: 6 Month Post-op Patient seen in office Surgery Date/Surgeon:03/19/24 LSG, Dr. Ashia Davidson 43 year old female Ht 175.3 cm (5' 9) Wt 85.5 kg (188 lb 9.6 oz) LMP 01/15/2024 BMI 27.85 kg/m? 65# lost since surgery 77.7%EWL based on IBW w/ BMI 25 Pre-surgical weight: 254 lbs Tolerating by mouth well: Yes Nausea: No Vomiting: No Constipation: No Diarrhea:No Weak/Shaky/Light-headed: No Estimated Nutrient Intake Average of 3 days' food records: No 24 hour recall/Usual intake: Yes 24 hr recall: B: protein shake (30g) L: chicken (7g), cottage cheese (12g), string cheese (7g) D: [place] pot roast with noodles (21g) S: carrots and ranch F: > 64 Per recall: [address] Food/beverage intolerance: taco seasoning, chipotle, alcohol Exercise: no formal exercise at this time Intake of obesity endorsing foods: limited exercise Alcohol/Caffeine/Sugar/Carbonati on Beverages in Diet: coffee in AM, green tea, no carbonation Frequent grazing: no Satiety between meals: yes Attendance at support group: not at this time Vitamins: MV: SpokenLayer 45 Calcium citrate: bariatric soft chews - unsure of brand - 3 per day - inconsistent B complex - still taking Vitamin D: 5000 international unit(s) -advised to switch to every other day (discussed with ACCOUNTING PROFESSIONAL and agreed) *taking daily Is having labs done tomorrow. Written information provided and reviewed: plate method Reinforced Behaviors: see below Patient presents 6 months s/p LSG at 77% EWL, she is exceeding weight loss projections at this time, congratulated on progress thus far. She is no longer keeping a food journal but is doing her best to get at least 60g protein daily -- per recall meeting protein and fluid goals. Encouraged increasing non-starchy vegetables during meals and using the plate method as a guide. Continues to take zepbound and reports she feels it is helping her. She states she is not endorsing in exercise, at her 3 month follow up she wasn't exercising as consistently either. Reviewed importance of adequate physical activity to aid with weight loss and weight maintenance post-op. Post-op vitamins reviewed, meeting goals post-op, is looking for a calcium citrate alternative since she isn't consistent with her current calcium -- provided suggestions. Plan: follow up w/ RD at 1 year post-op Goals aim for 60g protein daily -- 3 oz protein per meal Blood Pressure < 130/80 formal exercise 5-7x/week as tolerated, goal of 30 minutes OR 150 minutes of activity per week use healthy plate method for meal set up- - prioritizing protein/fiber first Total time in direct patient contact = 15 min. Greater than 50% of the time was spent in counseling and/or coordination of care. Claudia Guillaume RD This note was generated using voice recognition technology and may contain grammatical errors. [facility] 09-19-2024 Note Education (AGGENS4) MARIIA DAVIDSON ([id number]) 1980 F Date Time Provider Department 09/19/24 3:00 PM CLAUDIA GUILLAUME4 Reason for Visit: Established Patient [175] Primary Visit Diagnosis:Dietary counseling and surveillance [Z71.3] During your visit today, we recorded the following information about you: Weight Height 85.5 kg 1.753 m Allergies As of Date: 09/19/2024 (No Known Allergies) Date Reviewed: 09/19/2024 Reviewed by: Abigail Mcdermott MD - Fully Assessed Prescriptions as of 09/19/2024 - tirzepatide, weight loss (ZEPBOUND) 2.5 mg/0.5 mL solution Inject 0.5 mL subcutaneously one time a week. - pantoprazole DR (PROTONIX) 40 mg tablet Take 1 tablet by mouth once daily. TO START AFTER SURGERY. Take every day for 6 months after surgery. - lamoTRIgine (LAMICTAL) 25 mg tablet Take 50 mg by mouth once daily. - bevacizumab 0.625 mg in syringe 0.025 mL (AVASTIN) Use 0.625 mg in the right eye one time only. - ondansetron (ZOFRAN) 4 mg tablet Take 1 tablet by mouth every 8 hours as needed for nausea/vomiting (for nausea.). - biotin 1 mg cap Take by mouth once daily. - vitamin b complex capsule Take 1 capsule by mouth once daily. - gabapentin (NEURONTIN) 300 mg capsule Take 300 mg by mouth two times a day. - colestipol (COLESTID) 1 gram tablet Take 2 g by mouth daily at bedtime. - clonazePAM (KLONOPIN) 1 mg tablet Take 1 mg by mouth two times a day as needed for anxiety. - amLODIPine (NORVASC) 5 mg tablet Take 2.5 mg by mouth once daily. - lurasidone (LATUDA) 120 mg tablet Take by mouth once daily. - POTASSIUM CITRATE ORAL Take 15 mEq by mouth once daily. - sertraline (ZOLOFT) 100 mg tablet Take 200 mg by mouth once daily. - levothyroxine 50 mcg cap Take 25 mcg by mouth daily before breakfast. Follow-up and Disposition History for Encounter Date Provider Department Center 09/19/2024 [id number], LINDSEY AGGENS4 [facility] Encounter Status:Closed by CLAUDIA GUILLAUME on 09/19/24 [facility] 09-19-2024 Note HNO ID: [id number] Author: ABIGAIL MCDERMOTT MD Service: ? Author Type: Physician Type: Progress Notes Filed: 09/19/2024 15:28 Note Text: BARIATRIC SURGERY CLINIC FOLLOW UP NOTE Date: September 19, 2024 Time: 2:54 PM Mariia Davidson is a 43 year old year old female with obesity (Body mass index is 27.79 kg/m?.) who presents to the clinic today for follow up after bariatric surgery. She had demonstrated 63% EWL at 3 month post-op. Today at her 6 month follow up she demonstrates 65 lb 12.8 oz weight loss, which represents 77.70% of excess weight loss. She has been on Zepbound since surgery to help with the food noise she was struggling with after surgery Due for labs, orders placed Clinic Date: 09/19/2024 Mariia Davidson, 43 year old [address] [place] [address] [place] [address] Index Surgery Date of Surgery: 03/19/2024 Surgeon Attending: Abigail Mcdermott MD Surgical Procedure: Sleeve gastrectomy Pre-surgical weight: 115.2 kg (254 lb) Other Bariatric Surgeries None Time Since Surgery: 6 months Extra Procedures: None COMPLICATIONS DURING ADMISSION: None Operative Complications: No Complications Prior to Discharge: No COMPLICATIONS SINCE DISCHARGE?: NONE Estimated body mass index is 27.79 kg/m? as calculated from the following: Height as of this encounter: 175.3 cm (5' 9). Weight as of this encounter: 85.4 kg (188 lb 3.2 oz). [place] weight: 76.8 kg (169 lb 5 oz) Excess weight: 38.4 kg (84 lb 11 oz) % of excess body weight lost: 29.8 kg (65 lb 12.8 oz) (77.70% of excess weight loss) Daily approximate Fluid intake: 64 fl oz per 24 hours Daily approximate protein intake: 60 grams per 24 hours Present Activity level: has decreased - had been exercising 2 days a week, but currently is not exercising at all. Have you attended any Support Group? No attendance DIET INTAKE: tolerates Phase V diet DAILY SUPPLEMENTS: Calcium: Calcium Citrate w/ vitamin D (1200 - 1500mg) Multivitamin AND Minerals: 1 per day Iron Supplement: included in multi-vitamin Vitamin A: included in multi-vitamin Vitamin B12: 500 mcg B Complex: included in multi-vitamin Biotin: No Vitamin C: included in multi-vitamin Vitamin D3: included in multi-vitamin Vitamin E: included in multi-vitamin Zinc: included in multi-vitamin Other: N/A PAST MEDICAL HISTORY Diagnosis Date bipolar 2 Breast disorder thick breast tissues with mammogram Central vein occlusion of retina (HCC) Chronic diarrhea HTN (hypertension) Hypothyroidism Nephrolithiasis Non-alcoholic fatty liver disease Obesity depression 2011,2013 Pre-diabetes Preeclampsia (HCC) 2011 Rh incompatibility Secondary anovulatory infertility PAST SURGICAL HISTORY Procedure Laterality Date BREAST AUGMENTATION W/PROSTHETIC IMPLANT Bilateral 03/06/2024 BREAST SURGERY HX Bilateral 11/2023 lift DELIVERY ONLY 07/02/2015 , low transverse SECTION HX 2011,2012 CHOLECYSTECTOMY HX 2022 LITHOTRIPSY XTRCORP SHOCK WAVE x 3 FAMILY HISTORY Problem Relation Age of Onset None Mother Hypertension Father Cancer Maternal Grandmother Social History Tobacco Use Smoking status: Never Smokeless tobacco: Never Vaping Use Vaping status: Never Used Substance Use Topics Alcohol use: Not Currently Alcohol/week: 2.0 standard drinks of alcohol Types: 2 Glasses of wine per week Comment: STOPPED DRINKING 2020 Drug use: No Current Outpatient Medications Medication Sig tirzepatide, weight loss (ZEPBOUND) 2.5 mg/0.5 mL solution Inject 0.5 mL subcutaneously one time a week. pantoprazole DR (PROTONIX) 40 mg tablet Take 1 tablet by mouth once daily. TO START AFTER SURGERY. Take every day for 6 months after surgery. lamoTRIgine (LAMICTAL) 25 mg tablet Take 50 mg by mouth once daily. bevacizumab 0.625 mg in syringe 0.025 mL (AVASTIN) Use 0.625 mg in the right eye one time only. ondansetron (ZOFRAN) 4 mg tablet Take 1 tablet by mouth every 8 hours as needed for nausea/vomiting (for nausea.). biotin 1 mg cap Take by mouth once daily. vitamin b complex capsule Take 1 capsule by mouth once daily. gabapentin (NEURONTIN) 300 mg capsule Take 300 mg by mouth two times a day. colestipol (COLESTID) 1 gram tablet Take 2 g by mouth daily at bedtime. clonazePAM (KLONOPIN) 1 mg tablet Take 1 mg by mouth two times a day as needed for anxiety. amLODIPine (NORVASC) 5 mg tablet Take 2.5 mg by mouth once daily. lurasidone (LATUDA) 120 mg tablet Take by mouth once daily. POTASSIUM CITRATE ORAL Take 15 mEq by mouth once daily. sertraline (ZOLOFT) 100 mg tablet Take 200 mg by mouth once daily. levothyroxine 50 mcg cap Take 25 mcg by mouth daily before breakfast. No current facility-administered medications for this visit. ALLERGIES No Known Allergies Review of Systems Constitutional: Negative for chills, diaphoresis, fever and malaise/fatigue. HENT: (more content not included)... [facility] 08-17-2024 Instructions Tejal Valdes APRN.TSO - 08/17/2024 9:48 AM EST INDICATION Zepbound (ZEHP-bownd) is an injectable prescription medicine that may help adults with obesity, or with excess weight (overweight) who also have weight-related medical problems, lose weight and keep it off. It should be used with a reduced-calorie diet and increased physical activity. Zepbound contains tirzepatide and should not be used with other tirzepatide-containing products or any GLP-1 receptor agonist medicines. It is not known if Zepbound is safe and effective when taken with other prescription, [id number], or herbal weight loss products. It is not known if Zepbound can be used in people who have had pancreatitis. It is not known if Zepbound is safe and effective for use in children under 18 years of age. SAFETY SUMMARY WITH WARNINGS Warnings - Zepbound may cause tumors in the thyroid, including thyroid cancer. Watch for possible symptoms, such as a lump or swelling in the neck, hoarseness, trouble swallowing, or shortness of breath. If you have any of these symptoms, tell your healthcare provider. Do not use Zepbound if you or any of your family have ever had a type of thyroid cancer called medullary thyroid carcinoma (MTC). Do not use Zepbound if you have Multiple Endocrine Neoplasia syndrome type 2 (MEN 2). Do not use Zepbound if you have had a serious allergic reaction to tirzepatide or any of the ingredients in Zepbound. Zepbound may cause serious side effects, including: Severe stomach problems. Stomach problems, sometimes severe, have been reported in people who use Zepbound. Tell your healthcare provider if you have stomach problems that are severe or will not go away. Kidney problems (kidney failure). Diarrhea, nausea, and vomiting may cause a loss of fluids (dehydration), which may cause kidney problems. It is important for you to drink fluids to help reduce your chance of dehydration. Gallbladder problems. Gallbladder problems have happened in some people who use Zepbound. Tell your healthcare provider right away if you get symptoms of gallbladder problems, which may include pain in your upper stomach (abdomen), fever, yellowing of skin or eyes (jaundice), or hay-colored stools. Inflammation of the pancreas (pancreatitis). Stop using Zepbound and call your healthcare provider right away if you have severe pain in your stomach area (abdomen) that will not go away, with or without vomiting. You may feel the pain from your abdomen to your back. Serious allergic reactions. Stop using Zepbound and get medical help right away if you have any symptoms of a serious allergic reaction, including swelling of your face, lips, tongue or throat, problems breathing or swallowing, severe rash or itching, fainting or feeling dizzy, or very rapid heartbeat. Low blood sugar (hypoglycemia). Your risk for getting low blood sugar may be higher if you use Zepbound with medicines that can cause low blood sugar, such as a sulfonylurea or insulin. Signs and symptoms of low blood sugar may include dizziness or light-headedness, sweating, confusion or drowsiness, headache, blurred vision, slurred speech, shakiness, fast heartbeat, anxiety, irritability, mood changes, hunger, weakness or feeling jittery. Changes in vision in patients with type 2 diabetes. Tell your healthcare provider if you have changes in vision during treatment with Zepbound. Depression or thoughts of suicide. You should pay attention to changes in your mood, behaviors, feelings or thoughts. Call your healthcare provider right away if you have any mental changes that are new, worse, or worry you. Common side effects The most common side effects of Zepbound include nausea, diarrhea, vomiting, constipation, stomach (abdominal) pain, indigestion, injection site reactions, feeling tired, allergic reactions, belching, hair loss, and heartburn. These are not all the possible side effects of Zepbound. Talk to your healthcare provider about any side effect that bothers you or doesn t go away. Tell your healthcare provider if you have any side effects. You can report side effects at 3-735-QGS-9743 or www.fda.gov/medwatch. Before using Zepbound Your healthcare provider should show you how to use Zepbound before you use it for the first time. Tell your healthcare provider if you are taking medicines to treat diabetes including insulin or sulfonylureas which could increase your risk of low blood sugar. Talk to your healthcare provider about low blood sugar levels and how to manage them. If you take control pills by mouth, talk to your healthcare provider before you use Zepbound. control pills may not work as well while using Zepbound. Your healthcare provider may recommend another type of control for 4 weeks after you start Zepbound and for 4 weeks after each increase in your dose of Zepbound. Review these questions with your healthcare provider: ? Do you have other medical conditions, including problems with your pancreas or kidneys, or severe problems with your stomach, such as slowed emptying of your stomach (gastroparesis) or problems digesting food? ? Do you take diabetes medicines, such as insulin or sulfonylureas? ? Do you have a history of diabetic retinopathy? ? Do you take any other prescription medicines or [id number] drugs, vitamins, or herbal supplements? ? Are you , plan to become , , or plan to breastfeed? Zepbound may harm your unborn baby. Tell your healthcare provider if you become while using Zepbound. It is not known if Zepbound passes into your breast milk. You should talk with your healthcare provider about the best way to feed your baby while using Zepbound. Exposure Registry: There will be a exposure registry for women who have taken Zepbound during . The purpose of this registry is to collect information about the health of you and your baby. Talk to your healthcare provider about how you can take part in this registry, or you may contact Maria Esther at 2-488-HffvqEf ( ). How to take Read the Instructions for Use that come with Zepbound. Use Zepbound exactly as your healthcare provider says. Zepbound is injected under the skin (subcutaneously) of your stomach (abdomen), thigh, or upper arm. Use Zepbound 1 time each week, at any time of the day. Change (rotate) your injection site with each weekly injection. Do not use the same site for each injection. documented in this encounter [facility] 08-17-2024 History of Presen t illness Narrative Images from the original note were not included. [facility] [address] [facility], [address] [facility] [facility] - Fourth Floor [place] [id number] SUBJECTIVE: Mariia Davidson is a 43 year old female with a past medical history of obesity, hypertension, hyperlipidemia, nephrolithiasis, hypothyroid and bipolar II disorder who presents on August 15, 2024 for an evaluation of medical weight management. She is s/p sleeve gastrectomy on 03/19/2024 with a DOS weight of 254 lbs. Prior to surgery she was on Tirzepatide, stopped for surgery, and then re-started shortly after surgery by her PCP due to increase appetite/cravings and lack of anticipated weight loss (this was okayed by her bariatric surgeon). Tirzepatide was being managed by her PCP, who would like for us to manage anti-obesity medication moving forward. Over the last 2 months, she has come off of many of her medications due to weight loss, including Metformin, Telmisartan, and Fenofibrate. She has decreased her dose of amlodipine. Weight History: Highest adult weight : 269 lbs Lowest adult weight : 154 lbs Goal/ideal weight (as reported by patient): 165-170 lbs Previous treatments include self-directed dieting, commercial programs, prescription appetite suppressants, and surgical procedure. Previous bariatric surgery: Sleeve Gastrectomy 5 months ago. DOS weight of 254 lbs, now 192 lbs. Anti Obesity Medications: Topamax (on medication for weight loss,she was on 200 mg, but didn't notice a difference in appetite, caused dry mouth so she stopped it, off of the medication for 2 months now) , Ozempic (gained 15 lbs, 8 months, no S/E), Contrave (no weight loss, 2-3 months, no S/E), Phentermine (lost weight, no S/E, lost weight, 15-18 lbs each time, re-gained after stopping medication), Qsymia (tried for 1-2 months, not effective) Side effects/Results: See above. Barriers/Factors (including patient perceived): Over the last 2 months, she has felt an increase in appretite and decreased satiety after meals. Obesity Medicine 03/19/2024 weight: 254 lbs (sleeve gastrectomy) 03/29/2024 weight: 239 lbs 05/18/2024 weight: 211 lbs (Started compounded tirzepatide 2.5 mg in April) 06/22/2024 weight: 201 lbs (on compounded tirzepatide 2.5 mg) 08/18/2023 weight: 192 lbs (switched to Zepbound 2.5 mg) Lifestyle Factors: Diet: Do you think that you have a healthy diet? Yes. Overall characterization of present diet:Structured. How have you tried to lose weight in the past? Yes. Exercise: Do you exercise ? Yes - Twice a week, walking pad 45-60 minutes Eating Pattern: Breakfast: 2 hard boiled eggs Snacks: None Lunch: 3 oz chicken, 1 [place] cottage cheese, 1 string cheese Snack: Carrots and ranch Dinner: Chicken or pot roast with veggies Snack: None Beverages: Water 64 oz. Alcohol: None Bedtime 9pm Sleeps: 8-9 hours Wake up: 6 am Sleep: Duration: > 6 hours:Yes Current Outpatient Medications on File Prior to Visit Medication Sig divalproex DR (DEPAKOTE) 500 mg EC tablet Take 1,000 mg by mouth daily at bedtime. topiramate (TOPAMAX) 100 mg tablet Take 150 mg by mouth once daily. tirzepatide (MOUNJARO) 2.5 mg/0.5 mL pen injector Inject 2.5 mg subcutaneously one time a week. ondansetron (ZOFRAN) 4 mg tablet Take 1 tablet by mouth every 8 hours as needed for nausea/vomiting (for nausea.). biotin 1 mg cap Take by mouth once daily. vitamin b complex capsule Take 1 capsule by mouth once daily. pantoprazole DR (PROTONIX) 40 mg tablet Take 1 tablet by mouth once daily. TO START AFTER SURGERY. Take every day for 6 months after surgery. fenofibrate nanocrystallized (TRICOR) 145 mg tablet Take 145 mg by mouth once daily. gabapentin (NEURONTIN) 300 mg capsule Take 300 mg by mouth two times a day. colestipol (COLESTID) 1 gram tablet Take 2 g by mouth daily at bedtime. clonazePAM (KLONOPIN) 1 mg tablet Take 1 mg by mouth two times a day as needed for anxiety. amLODIPine (NORVASC) 5 mg tablet Take 5 mg by mouth once daily. metFORMIN ER (FORTAMET) 500 mg 24 hr tablet Take 1,000 mg by mouth daily with breakfast. lurasidone (LATUDA) 120 mg tablet Take by mouth once daily. POTASSIUM CITRATE ORAL Take 15 mEq by mouth once daily. sertraline (ZOLOFT) 100 mg tablet Take 200 mg by mouth once daily. telmisartan (MICARDIS) 40 mg tablet Take 40 mg by mouth once daily. levothyroxine 50 mcg cap Take 50 mcg by mouth daily before breakfast. No current facility-administered medications on file prior to visit. ALLERGIES No Known Allergies PAST MEDICAL HISTORY Diagnosis Date bipolar 2 Breast disorder thick breast tissues with mammogram Central vein occlusion of retina Chronic diarrhea HTN (hypertension) Hypothyroidism Nephrolithiasis Non-alcoholic fatty liver disease Obesity depression 2011,2013 Pre-diabetes Preeclampsia 2011 Rh incompatibility Secondary anovulatory infertility PAST SURGICAL HISTORY Procedure Laterality Date BREAST AUGMENTATION W/PROSTHETIC IMPLANT Bilateral 03/06/2024 BREAST SURGERY HX Bilateral 11/2023 lift DELIVERY ONLY 07/02/2015 , low transverse SECTION HX 2011,2012 CHOLECYSTECTOMY HX 2022 LITHOTRIPSY XTRCORP SHOCK WAVE x 3 FAMILY HISTORY Problem Relation Age of Onset None Mother Hypertension Father Cancer Maternal Grandmother Social History Tobacco Use Smoking status: Never Smokeless tobacco: Never Vaping Use Vaping status: Never Used Substance Use Topics Alcohol use: Not Currently Alcohol/week: 2.0 standard drinks of alcohol Types: 2 Glasses of wine per week Comment: STOPPED DRINKING 2020 Drug use: No ROS OBJECTIVE: Ht 175.3 cm (5' 9) Wt 87.1 kg (192 lb) LMP 01/15/2024 BMI 28.35 kg/m BMI = Body mass index is 28.35 kg/m . Physical Exam Constitutional:. --no issues with communication during visit and demonstrates understanding via appropriate interaction, verbalizing understanding ans she consented for this visit visit encounter HEENT: Normocephalic and atraumatic. Eyes: Conjunctiva appear normal. No scleral icterus. Hearing: Is grossly intact. Neck: Range of motion appears normal. Thyroid: appears symmetric and not enlarged. Pulmonary/Chest: Effort normal. Psychiatric: Mood, memory, affect and judgment normal. Neurological: alert and oriented to person, place, and time. Factors to consider regarding usage of Anti-Obesity Medications GLP-1 Receptor Agonist: No family history of thyroid cancer, no history of pancreatitis Topiramate: + history of kidney stones, no glaucoma; however, central vein occlusion of retina, on Avastin Bupropion: No history of seizure disorders; however, on Latuda and Lamictal Naltrexone: Not prescribed opiates Phentermine: No history of uncontrolled hypertension, stroke, or heart disease., central vein occlusion of retina, on Avastin, would discuss/obtain clearance from Optho prior to starting. ASSESSMENT/PLAN: 1. Overweight - ICD9: 278.02, ICD10: E66.3 (primary diagnosis) - History of obesity, BMI 37.5 at DOS, now 28 - TIRZEPATIDE (WEIGHT LOSS) 2.5 MG/0.5 ML SUBCUTANEOUS SOLUTION' - Discussed risks, benefits, side effects, contraindications. - Patient denies any history of medullary thyroid cancer, MEN 2 Syndrome, and pancreatitis. - Will start at 2.5 mg, re-evaluate next month. If insurance dose not cover, will prescribe through [facility] [facility]. - Follow up in 6 weeks. Nutrition Counseling Practice these: - Eat 3 meals daily--can use approved/recommended protein shake as 1 meal replacement (should be <200 calories, 20-30g protein, <5g added sugar) - Keep a food journal 5-7x/week (consider Erly or [employer] kaitlynn) and demonstrate meeting protein goal (60-90g protein for females, 70-105g protein for males)- Lean meats, fish, low fat dairy - cottage cheese, [place] yogurt, light yogurt, cheese, ricotta cheese, nuts, peanut butter, beans/legumes. Eat protein first at all meals. and 64oz of caffeine-free, carbonation-free fluids at least 5 days per week - engage in formal, planned exercise 5x/week for 30 minutes of cardiovascular activity OR 150+ minutes of cardiovascular activity per week - eliminate all caffeine, carbonation, alcohol and sugar-containing beverages from diet --consider sugar-free drink mixes, water, decaf coffee and tea - Separate eating and drinking by 30 minutes - Chew your food 20-30x per bite - Sip beverages slowly--no guzzling or gulping 2. S/P laparoscopic sleeve gastrectomy - ICD9: V45.86, ICD10: Z98.84 - TIRZEPATIDE (WEIGHT LOSS) 2.5 MG/0.5 ML SUBCUTANEOUS SOLUTION - PANTOPRAZOLE 40 MG TABLET,DELAYED RELEASE - She was not taking Pantoprazole, reports she ran out of medication, provided refill for 1 month as she should be on this medication for the first 6 months post-op. 3. NAFLD (nonalcoholic fatty liver disease) - ICD9: 571.8, ICD10: K76.0 - Expect to see an improvement with weight loss. - TIRZEPATIDE (WEIGHT LOSS) 2.5 MG/0.5 ML SUBCUTANEOUS SOLUTION 4. Hypothyroidism, unspecified type - ICD9: 244.9, ICD10: E03.9 - Continue management with PCP. 5. Hypertension, unspecified type - ICD9: 401.9, ICD10: I10 - Improving control, she has come off of Telmisartan and decreased dose of Amlodipine - Recommend home blood pressure monitoring, to bring results to next visit - Encouraged sodium restriction, DASH or Mediterranean diet - Recommend regular aerobic exercise - TIRZEPATIDE (WEIGHT LOSS) 2.5 MG/0.5 ML SUBCUTANEOUS SOLUTION - Continue management with PCP. 6. Hyperlipidemia, unspecified hyperlipidemia type - ICD9: 272.4, ICD10: E78.5 - Improving control - Counseled on healthy diet and regular exercise - She has come off of Fenofibrate - TIRZEPATIDE (WEIGHT LOSS) 2.5 MG/0.5 ML SUBCUTANEOUS SOLUTION - Continue management with PCP. Tejal Valdes APRN.KINSEY I spent a total of 50 minutes on the date of the service which included preparing to see the patient, [id number] patient care, completing clinical documentation, obtaining and/or reviewing separately obtained history, performing a medically appropriate examination, counseling and educating the patient/family/caregiver, ordering medications, tests, or procedures, and care coordination (not separately reported). documented in this encounter [facility] 08-17-2024 Note HNO ID: [id number] Author: TEJAL VALDES APRN.CNP Service: ? Author Type: Nurse Practitioner Type: Progress Notes Filed: 08/17/2024 10:03 Note Text: [address], [facility] [address] - [address] Floor [place] [address] SUBJECTIVE: Mariia Davidson is a 43 year old female with a past medical history of obesity, hypertension, hyperlipidemia, nephrolithiasis, hypothyroid and bipolar II disorder who presents on August 15, 2024 for an evaluation of medical weight management. She is s/p sleeve gastrectomy on 03/19/2024 with a DOS weight of 254 lbs. Prior to surgery she was on Tirzepatide, stopped for surgery, and then re-started shortly after surgery by her PCP due to increase appetite/cravings and lack of anticipated weight loss (this was okayed by her bariatric surgeon). Tirzepatide was being managed by her PCP, who would like for us to manage anti-obesity medication moving forward. Over the last 2 months, she has come off of many of her medications due to weight loss, including Metformin, Telmisartan, and Fenofibrate. She has decreased her dose of amlodipine. Weight History: Highest adult weight : 269 lbs Lowest adult weight : 154 lbs Goal/ideal weight (as reported by patient): 165-170 lbs Previous treatments include self-directed dieting, commercial programs, prescription appetite suppressants, and surgical procedure. Previous bariatric surgery: Sleeve Gastrectomy 5 months ago. DOS weight of 254 lbs, now 192 lbs. Anti Obesity Medications: Topamax (on medication for weight loss,she was on 200 mg, but didn't notice a difference in appetite, caused dry mouth so she stopped it, off of the medication for 2 months now) , Ozempic (gained 15 lbs, 8 months, no S/E), Contrave (no weight loss, 2-3 months, no S/E), Phentermine (lost weight, no S/E, lost weight, 15-18 lbs each time, re-gained after stopping medication), Qsymia (tried for 1-2 months, not effective) Side effects/Results: See above. Barriers/Factors (including patient perceived): Over the last 2 months, she has felt an increase in appretite and decreased satiety after meals. Obesity Medicine 03/19/2024 weight: 254 lbs (sleeve gastrectomy) 03/29/2024 weight: 239 lbs 05/18/2024 weight: 211 lbs (Started compounded tirzepatide 2.5 mg in April) 06/22/2024 weight: 201 lbs (on compounded tirzepatide 2.5 mg) 08/18/2023 weight: 192 lbs (switched to Zepbound 2.5 mg) Lifestyle Factors: Diet: Do you think that you have a healthy diet? Yes. Overall characterization of present diet:Structured. How have you tried to lose weight in the past? Yes. Exercise: Do you exercise ? Yes - Twice a week, walking pad 45-60 minutes Eating Pattern: Breakfast: 2 hard boiled eggs Snacks: None Lunch: 3 oz chicken, 1 [place] cottage cheese, 1 string cheese Snack: Carrots and ranch Dinner: Chicken or pot roast with veggies Snack: None Beverages: Water 64 oz. Alcohol: None Bedtime 9pm Sleeps: 8-9 hours Wake up: 6 am Sleep: Duration: > 6 hours:Yes Current Outpatient Medications on File Prior to Visit Medication Sig divalproex DR (DEPAKOTE) 500 mg EC tablet Take 1,000 mg by mouth daily at bedtime. topiramate (TOPAMAX) 100 mg tablet Take 150 mg by mouth once daily. tirzepatide (MOUNJARO) 2.5 mg/0.5 mL pen injector Inject 2.5 mg subcutaneously one time a week. ondansetron (ZOFRAN) 4 mg tablet Take 1 tablet by mouth every 8 hours as needed for nausea/vomiting (for nausea.). biotin 1 mg cap Take by mouth once daily. vitamin b complex capsule Take 1 capsule by mouth once daily. pantoprazole DR (PROTONIX) 40 mg tablet Take 1 tablet by mouth once daily. TO START AFTER SURGERY. Take every day for 6 months after surgery. fenofibrate nanocrystallized (TRICOR) 145 mg tablet Take 145 mg by mouth once daily. gabapentin (NEURONTIN) 300 mg capsule Take 300 mg by mouth two times a day. colestipol (COLESTID) 1 gram tablet Take 2 g by mouth daily at bedtime. clonazePAM (KLONOPIN) 1 mg tablet Take 1 mg by mouth two times a day as needed for anxiety. amLODIPine (NORVASC) 5 mg tablet Take 5 mg by mouth once daily. metFORMIN ER (FORTAMET) 500 mg 24 hr tablet Take 1,000 mg by mouth daily with breakfast. lurasidone (LATUDA) 120 mg tablet Take by mouth once daily. POTASSIUM CITRATE ORAL Take 15 mEq by mouth once daily. sertraline (ZOLOFT) 100 mg tablet Take 200 mg by mouth once daily. telmisartan (MICARDIS) 40 mg tablet Take 40 mg by mouth once daily. levothyroxine 50 mcg cap Take 50 mcg by mouth daily before breakfast. No current facility-administered medications on file prior to visit. ALLERGIES No Known Allergies PAST MEDICAL HISTORY Diagnosis Date bipolar 2 Breast disorder thick breast tissues with mammogram Central vein occlusion of retina Chronic diarrhea HTN (hypertension) Hypothyroidism Nephrolithiasis Non-alcoholic fatty (more content not included)... [facility] 06-22-2024 Instructions Claudia Guillaume, RD - 06/22/2024 8:41 AM EST Tadeo Davidson It was a pleasure to speak with you today and thank you for using [employer]! - use the healthyplate method to make meals--1/2 plate non-starchy vegetables (broccoli, cauliflower, green beans, lettuce, carrots, asparagus), 3-4oz lean protein (chicken, fish, lean beef, lean pork) or protein alternative and 1-2 oz starch (whole grain rice, whole grain pasta, potatoes, corn, peas, quinoa, cous cous). *always eat protein foods first Focus on meeting 64 oz + of fluid and daily protein goals!! Some good protein suggestions are: Seafood Tuna, tilapia, grouper, soft flaky fish such as cod, griselda, sea charles - canned or fresh Shellfish Scallops, lobster, shrimp, crab - canned or fresh Dairy Low fat, sugar-free or carbohydrate-controlled [place] yogurt without visible fruit pieces. Low fat cottage cheese, ricotta cheese, artis s cheese or other soft cheeses Eggs Eggbeaters , egg whites or whole eggs (no more than 1 egg yolk per day): boiled, scrambled, baked, poached (avoid fried or under cooked eggs) Poultry [place], chicken, game hen, duck breast. Deli such as roast turkey breast or chicken breast - canned or fresh Legumes Black beans, kidney (red) beans, garbanzo beans, white beans, lentils etc. Hummus and pureed beans may be well tolerated Tofu Tofu, Boca Burger (without the bun), [employer] soy products Meat Ham (red meat and pork may be difficult to digest; always check your tolerance level) Low sodium, rind-less, no sugar added cold-cuts and deli meats - canned or fresh Non-Starchy Vegetables: Use fresh or frozen without added sauces, cheese or gravies. Good examples of (Non-starchy) vegetables are: broccoli and cauliflower florets, tender green beans, soft yellow squash,zucchini, soft eggplant, cucumbers, soft asparagus, [place] sprouts, carrots, parsnips, rutabaga, beets, snow peas, plantain, sweet leeks, scallions, shallots, onions, green beans, lettuce, creamed spinach, kale, collards, cabbage, legumes, squash, mushrooms, peppers, tomatoes, herbs like parsley, basil, thyme, derek. If using canned, choose low sodium and rinse under cool water. Avoid tough stalks and vegetables that are too fibrous or hard to chew. If experiencing gas, avoid onions, garlic, leeks, cabbage, broccoli, cauliflower and other gas producing vegetables. Complex Carbohydrates (examples below) Cereals and Grains Amaranth, bran, barley, brown rice, bulgur, buckwheat, cornmeal, grits, kasha, kamut, millet, muesli, oats, quinoa, rye, semolina, 100% whole wheat, wheat germ and wild rice. When choosing a cereal, choose one that has less than 5 grams of sugar per serving and has at least 5 grams of fiber per serving. Breads, Crackers, Pitas, Look for 100% whole grain, stone-ground, multigrain or 100% whole wheat breads, Tortillas, Pastas and Rice crackers and pastas. Reece and Spelt breads, Paramjit Whole grain Classic, [facility] Whole Grain. Crackers such as [place]a, Ryvita, Kalvi and Albert brands. Pastas such as [place] Healthy [place], Barila Plus, [place] s Whole Grain. Rice brands such as: Ricardo-Mark brown rice, [employer] Foods whole grain rice, Leon s brown rice, Success whole grain brown rice and Uncle Usman s brown or wild rice. Starchy Vegetables [place], peas, plantain, potato (sweet or white), yams, squash or yucca.Legumes and Beans Soybeans (edamame), lentils, peas. Beans such as black, red, white, navy, northern, kidney or smith. Soak dried beans over night to reduce gas production. Fruits: Use fresh or frozen without added sugar, syrup or cream. Always wash your fresh fruit under cool running water. Peel fresh fruit. Good examples of fresh fruit are: peaches, apples, nectarines, plums, cherries, strawberries, apricots, blueberries, melons, bananas, grapes, figs, papaya, mangos, avocados, pears, persimmons. Avoid fruit that is too fibrous or hard to chew such as coconut and the rind of the orange. It s recommended that you peel fresh fruit before eating when first introducing in your diet. If using canned fruit, choose sugar-free or no sugar added and syrup. Use caution when eating fruits with seeds or pits. Please let me know if you have any questions, Claudia Guillaume RD documented in this encounter [facility] 06-22-2024 History of Presen t illness Narrative 3 Month Post-op This patient encounter was completed virtually due to COVID-19 (audio/visual) using a secure, HIPPA compliant video chat software program with the patient's consent. I have communicated my name and active licensure. The patients identity and physical location were verified at the time of this visit. Either the patient or their legal public health representative has been informed of the risks and benefits of -- and alternatives to -- treatment through remote evaluation and consents to proceed with the evaluation remotely. Surgery Date/Surgeon:03/19/24 RENEA, Dr. Ashia Davidson 43 year old female Ht 175.3 cm (5' 9) Wt 91.2 kg (201 lb) LMP 01/15/2024 BMI 29.68 kg/m 53# lost since surgery 62.3%EWL based on IBW w/ BMI 25 Pre-surgical weight:254 lbs Tolerating by mouth well: Yes Nausea: No Vomiting: No Constipation: No Diarrhea:No Weak/Shaky/Light-headed: No Estimated Nutrient Intake Average of 3 days' food records: No 24 hour recall/Usual intake: Yes 24 hr recall: B: 1/2 protein shake (15g) L: pot roast (21g) D: cottage cheese (12g) and string cheese (7g) F: >64 (5-6 bottles) Per recall: [address]g [address] RD At least 64 liquid intake (oz) Food/beverage intolerance: taco seasoning Exercise: fell off no formal exercise at this time Frequent grazing: no Satiety between meals: yes Attendance at support group: no Vitamins: MV: SpokenLayer 45 Calcium citrate: bariatric soft chews - unsure of brand - 3 per day B complex Vitamin D: 5000 international unit(s) -advised to switch to every other day (discussed with ACCOUNTING PROFESSIONAL and agreed) Written information provided and reviewed: healthy plate method Reinforced Behaviors: see below Patient presents 3 months post-op, exceeding weight loss projections at 62% EWL, she is still taking mounjaro to help with food noise. She is not keeping a food journal but reports good awareness as to how many gram of protein she is aiming for daily -- reviewed aiming for palm size amount portions if tolerated. Also suggested using a full shake instead of half to increase protein intake. She has been trying some vegetables since her last visit, doing well with this too. Encouraged adding in more non-starchy vegetables moving forward to help with satiety and prevent grazing. Reports being more mindful of what she is eating. Is not endorsing in formal exercise at this time, encouraged finding a routine that works for her again to help her further lose weight. Vitamins reviewed, she is still taking them as directed and meeting goals. Due to patient weight loss %, will plan on checking in at 6 mo post-op to ensure she is getting adequate nutrition since she is also on mounjaro. Plan: Follow up with RD at 1 year post-op, unless pt req appt prior Goals aim for 60g protein daily -- 3 oz protein per meal Blood Pressure < 130/80 formal exercise 5-7x/week as tolerated, goal of 30 minutes OR 150 minutes of activity per week use healthy plate method for meal set up- - prioritizing protein/fiber first Total time in direct patient contact = 20 min. Greater than 50% of the time was spent in counseling and/or coordination of care. Claudia Guillaume RD This note was generated using voice recognition technology and may contain grammatical errors. documented in this encounter [facility] 06-22-2024 Note HNO ID: [id number] Author: CLAUDIA GUILLAUME RD Service: ? Author Type: Registered Dietitian Type: Progress Notes Filed: 06/22/2024 08:51 Note Text: 3 Month Post-op This patient encounter was completed virtually due to COVID-19 (audio/visual) using a secure, HIPPA compliant video chat software program with the patient's consent. I have communicated my name and active licensure. The patients identity and physical location were verified at the time of this visit. Either the patient or their legal public health representative has been informed of the risks and benefits of -- and alternatives to -- treatment through remote evaluation and consents to proceed with the evaluation remotely. Surgery Date/Surgeon:03/19/24 RENEA, Dr. Ashia Davidson 43 year old female Ht 175.3 cm (5' 9) Wt 91.2 kg (201 lb) LMP 01/15/2024 BMI 29.68 kg/m? 53# lost since surgery 62.3%EWL based on IBW w/ BMI 25 Pre-surgical weight:254 lbs Tolerating by mouth well: Yes Nausea: No Vomiting: No Constipation: No Diarrhea:No Weak/Shaky/Light-headed: No Estimated Nutrient Intake Average of 3 days' food records: No 24 hour recall/Usual intake: Yes 24 hr recall: B: 1/2 protein shake (15g) L: pot roast (21g) D: cottage cheese (12g) and string cheese (7g) F: >64 (5-6 bottles) Per recall: [address] At least 64 liquid intake (oz) Food/beverage intolerance: taco seasoning Exercise: fell off no formal exercise at this time Frequent grazing: no Satiety between meals: yes Attendance at support group: no Vitamins: MV: SpokenLayer 45 Calcium citrate: bariatric soft chews - unsure of brand - 3 per day B complex Vitamin D: 5000 international unit(s) -advised to switch to every other day (discussed with ACCOUNTING PROFESSIONAL and agreed) Written information provided and reviewed: healthy plate method Reinforced Behaviors: see below Patient presents 3 months post-op, exceeding weight loss projections at 62% EWL, she is still taking mounjaro to help with food noise. She is not keeping a food journal but reports good awareness as to how many gram of protein she is aiming for daily -- reviewed aiming for palm size amount portions if tolerated. Also suggested using a full shake instead of half to increase protein intake. She has been trying some vegetables since her last visit, doing well with this too. Encouraged adding in more non-starchy vegetables moving forward to help with satiety and prevent grazing. Reports being more mindful of what she is eating. Is not endorsing in formal exercise at this time, encouraged finding a routine that works for her again to help her further lose weight. Vitamins reviewed, she is still taking them as directed and meeting goals. Due to patient weight loss %, will plan on checking in at 6 mo post-op to ensure she is getting adequate nutrition since she is also on mounjaro. Plan: Follow up with RD at 1 year post-op, unless pt req appt prior Goals aim for 60g protein daily -- 3 oz protein per meal Blood Pressure < 130/80 formal exercise 5-7x/week as tolerated, goal of 30 minutes OR 150 minutes of activity per week use healthy plate method for meal set up- - prioritizing protein/fiber first Total time in direct patient contact = 20 min. Greater than 50% of the time was spent in counseling and/or coordination of care. Claudia Guillaume RD This note was generated using voice recognition technology and may contain grammatical errors. [facility] 06-22-2024 History of Presen t illness Narrative [facility] SURGERY CLINIC FOLLOW UP NOTE DISTANCE HEALTH VISIT This Team Access Model visit is a virtual encounter. It required patient-provider interaction for the medical decision making as documented below. Consent was obtained to complete today's distance health visit. I have communicated my name and active licensure. The patient's identity and physical location were verified at the time of this visit. Either the patient or their legal public health representative has been informed of the risks and benefits of -- and alternatives to -- treatment through a remote evaluation and consents to proceed with the evaluation remotely. Name: Mariia Davidson Index Surgery Date of Surgery: 03/19/2024 Surgeon: Dr. Mcdermott Surgical Procedure: Sleeve gastrectomy Pre-surgical weight: 115.2 kg (254 lb) Override Index Surgery Information? No Other Bariatric Surgeries None Visit: 3 months Today's Visit: There were no vitals taken for this visit. BMI 29.68 kg/(m^2) Last Visit: Wt: 95.7 kg (211 lb) BMI: 31.16 kg/(m^2) Total weight loss: 53 lbs [place] weight: 76.8 kg (169 lb 5 oz) Excess weight: 38.4 kg (84 lb 11 oz) % of excess body weight lost: 63% COMPLICATIONS SINCE LAST VISIT?: NONE Added Depakote when she starts feeling hypomania - 1,000 mg. Meeting fluid and protein goals. DIET INTAKE: tolerates Phase V diet DAILY SUPPLEMENTS: Calcium: Calcium Citrate w/ vitamin D (1200 - 1500mg) Multivitamin & Minerals: 1 per day Iron Supplement: included in multi-vitamin Vitamin B12: included in multivitamin B complex Biotin: Yes Vitamin C: included in multi-vitamin Vitamin D3: No Other: Pantoprazole EXERCISE: None Are you attending any Support Groups? No attendance HISTORY REVIEWED (electronic chart updated): - medical history - medications - allergies Current Outpatient Medications Medication Sig divalproex DR (DEPAKOTE) 500 mg EC tablet Take 1,000 mg by mouth daily at bedtime. topiramate (TOPAMAX) 100 mg tablet Take 150 mg by mouth once daily. tirzepatide (MOUNJARO) 2.5 mg/0.5 mL pen injector Inject 2.5 mg subcutaneously one time a week. ondansetron (ZOFRAN) 4 mg tablet Take 1 tablet by mouth every 8 hours as needed for nausea/vomiting (for nausea.). biotin 1 mg cap Take by mouth once daily. vitamin b complex capsule Take 1 capsule by mouth once daily. pantoprazole DR (PROTONIX) 40 mg tablet Take 1 tablet by mouth once daily. TO START AFTER SURGERY. Take every day for 6 months after surgery. fenofibrate nanocrystallized (TRICOR) 145 mg tablet Take 145 mg by mouth once daily. gabapentin (NEURONTIN) 300 mg capsule Take 300 mg by mouth two times a day. colestipol (COLESTID) 1 gram tablet Take 2 g by mouth daily at bedtime. clonazePAM (KLONOPIN) 1 mg tablet Take 1 mg by mouth two times a day as needed for anxiety. amLODIPine (NORVASC) 5 mg tablet Take 5 mg by mouth once daily. metFORMIN ER (FORTAMET) 500 mg 24 hr tablet Take 1,000 mg by mouth daily with breakfast. lurasidone (LATUDA) 120 mg tablet Take by mouth once daily. POTASSIUM CITRATE ORAL Take 15 mEq by mouth once daily. sertraline (ZOLOFT) 100 mg tablet Take 200 mg by mouth once daily. telmisartan (MICARDIS) 40 mg tablet Take 40 mg by mouth once daily. levothyroxine 50 mcg cap Take 50 mcg by mouth daily before breakfast. No current facility-administered medications for this visit. REVIEW OF SYSTEMS: Denies nausea, vomiting, dumping syndrome, reactive hypoglycemia, gustatory rhinorrhea, Denies abdominal pain, constipation, diarrhea, melena, hematochezia, Denies paresthesias, gait abnormality, fatigue, weakness, lower extremity edema, and Denies taking NSAIDs PHYSICAL EXAM: There were no vitals taken for this visit. GENERAL APPEARANCE: Pleasant, interacts appropriately and in no apparent distress Appropriately groomed, happy, smiling, and interactive. ENT: Oral mucosa pink without lesions/ulcerations; LUNGS: unlabored on room air negative findings: normal respiratory rate and rhythm, no cough ABDOMEN: Obese SKIN: Skin of normal texture, temperature without rashes/lesions/ulcerations. NEURO/PSYCH: Oriented to person, place, time; appropriate insight and judgement. Appropriate affect. ASSESSMENT AND PLAN: Normal post-OP course 1. S/P laparoscopic sleeve gastrectomy DISPOSITION: Return 3 month to Post-op follow up/ individual office visit EDUCATION: Encouraged to continue with healthy lifestyle changes and incorporate cardiovascular and resistance training, Discussed weight loss expectations after bariatric and metabolic surgery, Advised PT to avoid NSAIDs, smoking tobacco given increased risk of marginal ulcers, or Discussed importance of protein intake as per the RDN note REFERRALS: N/A LABS: Labs completed 1 week ago, will obtain labs again at 6 months post-op In 3 months: See Epic Orders 2. Overweight - Patient has lost at 3 months post-op what the average is at 6 months post-op. She is doing well. Still taking Mounjaro which is managed by her PCP. Mounjaro has helped quite a bit with the food noice. 3. Thrombocytopenia (HCC) - Mild, noted on recent labs, she has followed up with her PCP regarding this finding. Reports they will monitor. Tejal Valdes APRN.KINSEY I spent a total of 20 minutes on the date of the service which included preparing to see the patient, [id number] patient care, completing clinical documentation, obtaining and/or reviewing separately obtained history, performing a medically appropriate examination, and counseling and educating the patient/family/caregiver. documented in this encounter [facility] 06-22-2024 Note HNO ID: [id number] Author: TEJAL VALDES APRN.CNP Service: ? Author Type: Nurse Practitioner Type: Progress Notes Filed: 06/22/2024 08:26 Note Text: BARIATRIC SURGERY CLINIC FOLLOW UP NOTE DISTANCE HEALTH VISIT This Team Access Model visit is a virtual encounter. It required patient-provider interaction for the medical decision making as documented below. Consent was obtained to complete today's distance health visit. I have communicated my name and active licensure. The patient's identity and physical location were verified at the time of this visit. Either the patient or their legal public health representative has been informed of the risks and benefits of -- and alternatives to -- treatment through a remote evaluation and consents to proceed with the evaluation remotely. Name: Mariia Davidson Index Surgery Date of Surgery: 03/19/2024 Surgeon: Dr. Mcdermott Surgical Procedure: Sleeve gastrectomy Pre-surgical weight: 115.2 kg (254 lb) Override Index Surgery Information? No Other Bariatric Surgeries None Visit: 3 months Today's Visit: There were no vitals taken for this visit. BMI 29.68 kg/(m2) Last Visit: Wt: 95.7 kg (211 lb) BMI: 31.16 kg/(m2) Total weight loss: 53 lbs [place] weight: 76.8 kg (169 lb 5 oz) Excess weight: 38.4 kg (84 lb 11 oz) % of excess body weight lost: 63% COMPLICATIONS SINCE LAST VISIT?: NONE Added Depakote when she starts feeling hypomania - 1,000 mg. Meeting fluid and protein goals. DIET INTAKE: tolerates Phase V diet DAILY SUPPLEMENTS: Calcium: Calcium Citrate w/ vitamin D (1200 - 1500mg) Multivitamin AND Minerals: 1 per day Iron Supplement: included in multi-vitamin Vitamin B12: included in multivitamin B complex Biotin: Yes Vitamin C: included in multi-vitamin Vitamin D3: No Other: Pantoprazole EXERCISE: None Are you attending any Support Groups? No attendance HISTORY REVIEWED (electronic chart updated): - medical history - medications - allergies Current Outpatient Medications Medication Sig divalproex DR (DEPAKOTE) 500 mg EC tablet Take 1,000 mg by mouth daily at bedtime. topiramate (TOPAMAX) 100 mg tablet Take 150 mg by mouth once daily. tirzepatide (MOUNJARO) 2.5 mg/0.5 mL pen injector Inject 2.5 mg subcutaneously one time a week. ondansetron (ZOFRAN) 4 mg tablet Take 1 tablet by mouth every 8 hours as needed for nausea/vomiting (for nausea.). biotin 1 mg cap Take by mouth once daily. vitamin b complex capsule Take 1 capsule by mouth once daily. pantoprazole DR (PROTONIX) 40 mg tablet Take 1 tablet by mouth once daily. TO START AFTER SURGERY. Take every day for 6 months after surgery. fenofibrate nanocrystallized (TRICOR) 145 mg tablet Take 145 mg by mouth once daily. gabapentin (NEURONTIN) 300 mg capsule Take 300 mg by mouth two times a day. colestipol (COLESTID) 1 gram tablet Take 2 g by mouth daily at bedtime. clonazePAM (KLONOPIN) 1 mg tablet Take 1 mg by mouth two times a day as needed for anxiety. amLODIPine (NORVASC) 5 mg tablet Take 5 mg by mouth once daily. metFORMIN ER (FORTAMET) 500 mg 24 hr tablet Take 1,000 mg by mouth daily with breakfast. lurasidone (LATUDA) 120 mg tablet Take by mouth once daily. POTASSIUM CITRATE ORAL Take 15 mEq by mouth once daily. sertraline (ZOLOFT) 100 mg tablet Take 200 mg by mouth once daily. telmisartan (MICARDIS) 40 mg tablet Take 40 mg by mouth once daily. levothyroxine 50 mcg cap Take 50 mcg by mouth daily before breakfast. No current facility-administered medications for this visit. REVIEW OF SYSTEMS: Denies nausea, vomiting, dumping syndrome, reactive hypoglycemia, gustatory rhinorrhea, Denies abdominal pain, constipation, diarrhea, melena, hematochezia, Denies paresthesias, gait abnormality, fatigue, weakness, lower extremity edema, and Denies taking NSAIDs PHYSICAL EXAM: There were no vitals taken for this visit. GENERAL APPEARANCE: Pleasant, interacts appropriately and in no apparent distress Appropriately groomed, happy, smiling, and interactive. ENT: Oral mucosa pink without lesions/ulcerations; LUNGS: unlabored on room air negative findings: normal respiratory rate and rhythm, no cough ABDOMEN: Obese SKIN: Skin of normal texture, temperature without rashes/lesions/ulcerations. NEURO/PSYCH: Oriented to person, place, time; appropriate insight and judgement. Appropriate affect. ASSESSMENT AND PLAN: Normal post-OP course 1. S/P laparoscopic sleeve gastrectomy DISPOSITION: Return 3 month to Post-op follow up/ individual office visit EDUCATION: Encouraged to continue with healthy lifestyle changes and incorporate cardiovascular and resistance training, Discussed weight loss expectations after bariatric and metabolic surgery, Advised PT to avoid NSAIDs, smoking tobacco given increased risk of marginal ulcers, or Discussed importance of protein intake as per the RDN note REFERRALS: N/A LABS: Labs completed 1 week ago, patito (more content not included)... [facility] 06-19-2024 Telephone encounter Note Called patient to review lab work. Discussed low platelets (137). She has noticed mild increased bruising recently. She will reach out to her primary care provider Dr. Gonzalez today. Labs will be sent to him as well. Discussed kidney function is stable and all other labs are within a normal range. We are waiting on thiamine to result and will reach out if abnormal. We have a 3 month follow up appointment 06/22. Tejal Valdes APRN.KINSEY [facility] 06-19-2024 Miscellaneous Notes Called patient to review lab work. Discussed low platelets (137). She has noticed mild increased bruising recently. She will reach out to her primary care provider Dr. Gonzalez today. Labs will be sent to him as well. Discussed kidney function is stable and all other labs are within a normal range. We are waiting on thiamine to result and will reach out if abnormal. We have a 3 month follow up appointment 06/22. Tejal Valdes APRN.CNP documented in this encounter [facility] 06-01-2024 Note HNO ID: [id number] Author: NEENA PIKE PSYD Service: ? Author Type: Psychologist Type: Progress Notes Filed: 06/01/2024 15:20 Note Text: [facility] Follow-Up Visit [facility] Progress Note June 01, 2024 CPT Code: 67643 Time: <16 minutes This is a virtual visit using Scutum video visit. It required patient-provider interaction for the medical decision making as documented below. I have communicated my name and active licensure. The patient's identity and physical location were verified at the time of this visit. Either the patient or their legal public health representative has been informed of the risks and benefits of -- and alternatives to -- treatment through a remote evaluation and consents to proceed with the evaluation remotely. Summary of Session: The patient stated she was doing much better. She said she had scheduled her eating/drinking and that was working with her work schedule. She said she had some food noise, but we talked about increasing her protein to help with this. She said she had lost 59 pounds and was feeling good about her weight loss. She said she had started a short stint of depakote to help her mood, but felt like she would be able to go off of it soon. She said she was feeling optimistic about the start of the new year. Patient mood is: calm. Affect is: Appropriate. Patient Data Binge Eating Scale (BES) 09/16/2023 09/26/2023 01/04/2024 Eating Habits Checklist Total Score 28 26 12 <18 = minimal binge eating, 18-26 = moderate binge eating, >27 = severe binge eating Generalized Anxiety Disorder Scale (DORETHA-7) 01/04/2024 04/17/2024 05/23/2024 DORETHA - 7 SCORES Score 5 6 5 (0-4) minimal anxiety, (5-9) mild anxiety, (10-14) moderate anxiety, (15-21) severe anxiety Patient Health Questionnaire (PHQ-9) 01/04/2024 04/17/2024 05/23/2024 PHQ-9 Score 1 0 0 (0-4) minimal depression, (5-9) mild depression, (10-14) moderate depression, (15-19) moderately severe depression, (20-27) severe depression Diagnosis: Eating disorder, unspecified type (primary encounter diagnosis) Bipolar affective disorder, remission status unspecified ([facility]) Current Medications: Current Outpatient Medications Medication Sig divalproex DR (DEPAKOTE) 500 mg EC tablet Take 1,000 mg by mouth daily at bedtime. topiramate (TOPAMAX) 100 mg tablet Take 150 mg by mouth once daily. tirzepatide (MOUNJARO) 2.5 mg/0.5 mL pen injector Inject 2.5 mg subcutaneously one time a week. ondansetron (ZOFRAN) 4 mg tablet Take 1 tablet by mouth every 8 hours as needed for nausea/vomiting (for nausea.). biotin 1 mg cap Take by mouth once daily. vitamin b complex capsule Take 1 capsule by mouth once daily. pantoprazole DR (PROTONIX) 40 mg tablet Take 1 tablet by mouth once daily. TO START AFTER SURGERY. Take every day for 6 months after surgery. fenofibrate nanocrystallized (TRICOR) 145 mg tablet Take 145 mg by mouth once daily. gabapentin (NEURONTIN) 300 mg capsule Take 300 mg by mouth two times a day. colestipol (COLESTID) 1 gram tablet Take 2 g by mouth daily at bedtime. clonazePAM (KLONOPIN) 1 mg tablet Take 1 mg by mouth two times a day as needed for anxiety. amLODIPine (NORVASC) 5 mg tablet Take 5 mg by mouth once daily. metFORMIN ER (FORTAMET) 500 mg 24 hr tablet Take 1,000 mg by mouth daily with breakfast. lurasidone (LATUDA) 120 mg tablet Take by mouth once daily. POTASSIUM CITRATE ORAL Take 15 mEq by mouth once daily. sertraline (ZOLOFT) 100 mg tablet Take 200 mg by mouth once daily. telmisartan (MICARDIS) 40 mg tablet Take 40 mg by mouth once daily. levothyroxine 50 mcg cap Take 50 mcg by mouth daily before breakfast. No current facility-administered medications for this visit. Treatment Modality: Person Centered Supportive Counseling Plan/Recommendations: Return as needed. Follow Up: ROBERT Pike PSYD Clinical Psychologist Bariatrics [facility] 06-01-2024 History of Presen t illness Narrative [facility] Follow-Up Visit [facility] Progress Note June 01, 2024 CPT Code: 14651 Time: <16 minutes This is a virtual visit using Scutum video visit. It required patient-provider interaction for the medical decision making as documented below. I have communicated my name and active licensure. The patient's identity and physical location were verified at the time of this visit. Either the patient or their legal public health representative has been informed of the risks and benefits of -- and alternatives to -- treatment through a remote evaluation and consents to proceed with the evaluation remotely. Summary of Session: The patient stated she was doing much better. She said she had scheduled her eating/drinking and that was working with her work schedule. She said she had some food noise, but we talked about increasing her protein to help with this. She said she had lost 59 pounds and was feeling good about her weight loss. She said she had started a short stint of depakote to help her mood, but felt like she would be able to go off of it soon. She said she was feeling optimistic about the start of the new year. Patient mood is: calm. Affect is: Appropriate. Patient Data Binge Eating Scale (BES) 09/16/2023 09/26/2023 01/04/2024 Eating Habits Checklist Total Score 28 26 12 <18 = minimal binge eating, 18-26 = moderate binge eating, >27 = severe binge eating Generalized Anxiety Disorder Scale (DORETHA-7) 01/04/2024 04/17/2024 05/23/2024 DORETHA - 7 SCORES Score 5 6 5 (0-4) minimal anxiety, (5-9) mild anxiety, (10-14) moderate anxiety, (15-21) severe anxiety Patient Health Questionnaire (PHQ-9) 01/04/2024 04/17/2024 05/23/2024 PHQ-9 Score 1 0 0 (0-4) minimal depression, (5-9) mild depression, (10-14) moderate depression, (15-19) moderately severe depression, (20-27) severe depression Diagnosis: Eating disorder, unspecified type (primary encounter diagnosis) Bipolar affective disorder, remission status unspecified ([facility]) Current Medications: Current Outpatient Medications Medication Sig divalproex DR (DEPAKOTE) 500 mg EC tablet Take 1,000 mg by mouth daily at bedtime. topiramate (TOPAMAX) 100 mg tablet Take 150 mg by mouth once daily. tirzepatide (MOUNJARO) 2.5 mg/0.5 mL pen injector Inject 2.5 mg subcutaneously one time a week. ondansetron (ZOFRAN) 4 mg tablet Take 1 tablet by mouth every 8 hours as needed for nausea/vomiting (for nausea.). biotin 1 mg cap Take by mouth once daily. vitamin b complex capsule Take 1 capsule by mouth once daily. pantoprazole DR (PROTONIX) 40 mg tablet Take 1 tablet by mouth once daily. TO START AFTER SURGERY. Take every day for 6 months after surgery. fenofibrate nanocrystallized (TRICOR) 145 mg tablet Take 145 mg by mouth once daily. gabapentin (NEURONTIN) 300 mg capsule Take 300 mg by mouth two times a day. colestipol (COLESTID) 1 gram tablet Take 2 g by mouth daily at bedtime. clonazePAM (KLONOPIN) 1 mg tablet Take 1 mg by mouth two times a day as needed for anxiety. amLODIPine (NORVASC) 5 mg tablet Take 5 mg by mouth once daily. metFORMIN ER (FORTAMET) 500 mg 24 hr tablet Take 1,000 mg by mouth daily with breakfast. lurasidone (LATUDA) 120 mg tablet Take by mouth once daily. POTASSIUM CITRATE ORAL Take 15 mEq by mouth once daily. sertraline (ZOLOFT) 100 mg tablet Take 200 mg by mouth once daily. telmisartan (MICARDIS) 40 mg tablet Take 40 mg by mouth once daily. levothyroxine 50 mcg cap Take 50 mcg by mouth daily before breakfast. No current facility-administered medications for this visit. Treatment Modality: Person Centered Supportive Counseling Plan/Recommendations: Return as needed. Follow Up: ROBERT Pike PSYD Clinical Psychologist Bariatrics documented in this encounter [facility] 05-28-2024 Telephone encounter Note Left pt a VM to schedule visit per notes from todays visit with Claudia: Return in about 22 days (around 06/19/2024). Check out comments: Plan: follow up with RD/ACCOUNTING PROFESSIONAL at 3 months post-op [facility] 05-28-2024 Miscellaneous Notes Left pt a VM to schedule visit per notes from todays visit with Claudia: Return in about 22 days (around 06/19/2024). Check out comments: Plan: follow up with RD/ACCOUNTING PROFESSIONAL at 3 months post-op documented in this encounter [facility] 05-28-2024 Instructions Claudia Guillaume, VOLODYMYR - 05/28/2024 8:11 AM EST Advance to phase IV at 8 weeks post op Phase IV Reminders: - Start slow, introduce one new non-starchy vegetable at a time - Non-starchy vegetables should be very soft/mushy to start (steam bags are very convenient), once you are able to tolerate soft cooked you can try raw vegetables - Continue to focus on your protein foods first, you may only take a few bites of a vegetable at meal times -- which is ok! - You may notice more gas during this stage which is also normal but make sure to let the bariatric team know as well - Continue maintaining a food journal and staying hydrated! Non-Starchy Vegetables: Use fresh or frozen without added sauces, cheese or gravies. Good examples of (Non-starchy) vegetables are: broccoli and cauliflower florets, tender green beans, zucchini, soft eggplant, cucumbers, soft asparagus, [place] sprouts, carrots, parsnips, beets, snow peas, scallions, shallots, onions, green beans, lettuce, kale, collards, cabbage, legumes, mushrooms, peppers, tomatoes, herbs like parsley, basil, thyme, derek. If using canned, choose low sodium and rinse under cool water. Avoid tough stalks and vegetables that are too fibrous or hard to chew. If experiencing gas, avoid onions, garlic, leeks, cabbage, broccoli, cauliflower and other gas producing vegetables. During Phase IV, no breads, no cereals, no rice, no noodles, no pastas, no crackers, no potatoes (sweet or white), no yams, no corn, no plantain, no yucca, no fruits, no fruit juices, no carbonation, no caffeine, no alcoholic beverages documented in this encounter [facility] 05-28-2024 History of Presen t illness Narrative 7 Week Post-Op This patient encounter was completed virtually due to COVID-19 (audio/visual) using a secure, HIPPA compliant video chat software program with the patient's consent. I have communicated my name and active licensure. The patients identity and physical location were verified at the time of this visit. Either the patient or their legal public health representative has been informed of the risks and benefits of -- and alternatives to -- treatment through remote evaluation and consents to proceed with the evaluation remotely. Surgery Date/Surgeon:03/19/24 RENEA, Dr. Ashia Davidson 43 year old female Ht 175.3 cm (5' 9) Wt 95.7 kg (211 lb) LMP 01/15/2024 BMI 31.16 kg/m 43# lost since surgery 50.5%EWL based on IBW w/ BMI 25 Pre-surgical weight: 254 lbs Tolerating by mouth well: Yes Nausea: No Vomiting: No Constipation: No Diarrhea:No Weak/Shaky/Light-headed: No Estimated Nutrient Intake Average of 3 days' food records: No 24 hour recall/Usual intake: Yes 24 hr recall: B: 1/2 protein shake (15g) L: cottage cheese (12g) D: veggie pizza - did not make at home S: cheese stick (7g) F: > 64 oz (6-8 water bottles/gatorade/decaf tea) Per recall:[address]g [address] Diet advancement/meal pattern reviewed: Yes Food/beverage intolerance: trying her to best to stick to her safe foods Exercise: 1-2x/week walking on treadmill (~ 40 min) Attendance at support group: not at this time Vitamins: MV: all in one bariatric MV (unsure of brand) 45 Calcium citrate: bariatric soft chews - unsure of brand - 3 per day B complex Vitamin D: 5000 international unit(s) additional daily -- advised to switch to every other day (discussed with ACCOUNTING PROFESSIONAL and agreed) Written information provided and reviewed: phase IV Reinforced behaviors: see below Patient presents for a follow up, she states that recently went to doctor for possible UTI, she was not given any medications or IV fluids but was encouraged to increase her fluid intake. Since then, she has significantly improved her fluid intake and is now exceeding goals. However, does report more head hunger and is still on mounjaro -- which is still working well fro her per her report. Per her recall, she is still not getting her protein in, I reviewed with her that due to her not meeting her protein goals over the last few weeks this could be causing that head hunger and it is important to stick with the nutrition protocols provided post-op. Advised she needs to aim for 2-3 oz of protein per meal and supplement with shakes as needed to get at least 60g, did advise her that she can start adding in small amounts of non-starchy vegetables to help as well. Continues to take vitamins as directed, she is endorsing in exercise but would benefit from increasing. Reviewed phase IV recommendations/guidelines with patient via bariatric manual. Plan: follow up with RD at 3 months post-op Goals advance to phase IV at 8 weeks post-op Blood Pressure < 130/80 formal exercise 5-7x/week as tolerated, goal of 30 minutes OR 150 minutes of activity per week Total time in direct patient contact = 20 min. Greater than 50% of the time was spent in counseling and/or coordination of care. Claudia Guillaume RD This note was generated using voice recognition technology and may contain grammatical errors. documented in this encounter [facility] 05-28-2024 Note HNO ID: [id number] Author: CLAUDIA GUILLAUME RD Service: ? Author Type: Registered Dietitian Type: Progress Notes Filed: 05/28/2024 08:24 Note Text: 7 Week Post-Op This patient encounter was completed virtually due to COVID-19 (audio/visual) using a secure, HIPPA compliant video chat software program with the patient's consent. I have communicated my name and active licensure. The patients identity and physical location were verified at the time of this visit. Either the patient or their legal public health representative has been informed of the risks and benefits of -- and alternatives to -- treatment through remote evaluation and consents to proceed with the evaluation remotely. Surgery Date/Surgeon:03/19/24 RENEA, Dr. Ashia Davidson 43 year old female Ht 175.3 cm (5' 9) Wt 95.7 kg (211 lb) LMP 01/15/2024 BMI 31.16 kg/m? 43# lost since surgery 50.5%EWL based on IBW w/ BMI 25 Pre-surgical weight: 254 lbs Tolerating by mouth well: Yes Nausea: No Vomiting: No Constipation: No Diarrhea:No Weak/Shaky/Light-headed: No Estimated Nutrient Intake Average of 3 days' food records: No 24 hour recall/Usual intake: Yes 24 hr recall: B: 1/2 protein shake (15g) L: cottage cheese (12g) D: veggie pizza - did not make at home S: cheese stick (7g) F: > 64 oz (6-8 water bottles/gatorade/decaf tea) Per recall:34g per RD Diet advancement/meal pattern reviewed: Yes Food/beverage intolerance: trying her to best to stick to her safe foods Exercise: 1-2x/week walking on treadmill (~ 40 min) Attendance at support group: not at this time Vitamins: MV: all in one bariatric MV (unsure of brand) 45 Calcium citrate: bariatric soft chews - unsure of brand - 3 per day B complex Vitamin D: 5000 international unit(s) additional daily -- advised to switch to every other day (discussed with ACCOUNTING PROFESSIONAL and agreed) Written information provided and reviewed: phase IV Reinforced behaviors: see below Patient presents for a follow up, she states that recently went to doctor for possible UTI, she was not given any medications or IV fluids but was encouraged to increase her fluid intake. Since then, she has significantly improved her fluid intake and is now exceeding goals. However, does report more head hunger and is still on mounjaro -- which is still working well fro her per her report. Per her recall, she is still not getting her protein in, I reviewed with her that due to her not meeting her protein goals over the last few weeks this could be causing that head hunger and it is important to stick with the nutrition protocols provided post-op. Advised she needs to aim for 2-3 oz of protein per meal and supplement with shakes as needed to get at least 60g, did advise her that she can start adding in small amounts of non-starchy vegetables to help as well. Continues to take vitamins as directed, she is endorsing in exercise but would benefit from increasing. Reviewed phase IV recommendations/guidelines with patient via bariatric manual. Plan: follow up with RD at 3 months post-op Goals advance to phase IV at 8 weeks post-op Blood Pressure < 130/80 formal exercise 5-7x/week as tolerated, goal of 30 minutes OR 150 minutes of activity per week Total time in direct patient contact = 20 min. Greater than 50% of the time was spent in counseling and/or coordination of care. Claudia Guillaume RD This note was generated using voice recognition technology and may contain grammatical errors. [facility] 05-18-2024 History of Presen t illness Narrative BARIATRIC SURGERY CLINIC FOLLOW UP NOTE DISTANCE HEALTH VISIT This Team Access Model visit is a virtual encounter. It required patient-provider interaction for the medical decision making as documented below. Consent was obtained to complete today's distance health visit. I have communicated my name and active licensure. The patient's identity and physical location were verified at the time of this visit. Either the patient or their legal public health representative has been informed of the risks and benefits of -- and alternatives to -- treatment through a remote evaluation and consents to proceed with the evaluation remotely. Name: Mariia Davidson Index Surgery Date of Surgery: 03/19/2024 Surgeon: Dr. Mcdermott Surgical Procedure: Sleeve gastrectomy Pre-surgical weight: 115.2 kg (254 lb) Override Index Surgery Information? No Gastric Remnant Pathology: FINAL DIAGNOSIS A. Stomach, sleeve gastrectomy: - Segment of gastric body/fundus with no histopathologic abnormality. Other Bariatric Surgeries None Visit: 8 weeks Today's Visit: There were no vitals taken for this visit. No weight on file for this encounter. Member reports a weight of 211 lbs. Last Visit: Wt: 108.7 kg (239 lb 9.6 oz) BMI: 35.38 kg/(m^2) Total weight loss: 43 lbs [place] weight: 76.8 kg (169 lb 5 oz) Excess weight: 38.4 kg (84 lb 11 oz) % of excess body weight lost: 51% COMPLICATIONS SINCE LAST VISIT?: Mariia was struggling with a lot of food noise immediately following surgery. She was started on Mounjaro 2.5 mg weekly and Topamax 150 mg about 4-5 weeks ago to help with appetite and cravings. She reports this has been helping immensely. She reports she was experiencing some hypomania symptoms, and her PCP started her Depakote at bedtime. She reports the hypomania symptoms have improved. 24 Hour Recall: B: Skips, Gatorade Zero 16 oz L: Cottage Cheese, Gatorade Zero 16 oz, String Cheese D: 3 pieces of shrimp, 1/2 of an Iced Tea, Gatorade Zero 16 oz. She reports she has a bowel movement every other day. Occasionally she will experience loose stools if she eats something I'm not supposed to eat. She denies diarrhea, constipation and vomiting. Occasionally she experiences nausea is she over eats. She has been urinating normally. As far as fluid intake goes, she reports she has good and bad days, but overall things are improving. She is aware she needs to work on her protein intake. She has been compliant with her post-op vitamin schedule. DIET INTAKE: See above. DAILY SUPPLEMENTS: Calcium: Calcium Citrate w/ vitamin D (1200 - 1500mg) Multivitamin & Minerals: 1 per day Iron Supplement: included in multi-vitamin Vitamin B12: included in multivitamin Biotin: Yes Vitamin C: included in multi-vitamin Vitamin D3: Will start Other: Pantoprazole EXERCISE: Treadmill 1-2 times a week, 30-40 minutes Are you attending any Support Groups? No attendance HISTORY REVIEWED (electronic chart updated): - medical history - medications - allergies Current Outpatient Medications Medication Sig divalproex DR (DEPAKOTE) 500 mg EC tablet Take 1,000 mg by mouth daily at bedtime. topiramate (TOPAMAX) 100 mg tablet Take 150 mg by mouth once daily. tirzepatide (MOUNJARO) 2.5 mg/0.5 mL pen injector Inject 2.5 mg subcutaneously one time a week. ondansetron (ZOFRAN) 4 mg tablet Take 1 tablet by mouth every 8 hours as needed for nausea/vomiting (for nausea.). biotin 1 mg cap Take by mouth once daily. vitamin b complex capsule Take 1 capsule by mouth once daily. pantoprazole DR (PROTONIX) 40 mg tablet Take 1 tablet by mouth once daily. TO START AFTER SURGERY. Take every day for 6 months after surgery. fenofibrate nanocrystallized (TRICOR) 145 mg tablet Take 145 mg by mouth once daily. gabapentin (NEURONTIN) 300 mg capsule Take 300 mg by mouth two times a day. colestipol (COLESTID) 1 gram tablet Take 2 g by mouth daily at bedtime. clonazePAM (KLONOPIN) 1 mg tablet Take 1 mg by mouth two times a day as needed for anxiety. amLODIPine (NORVASC) 5 mg tablet Take 5 mg by mouth once daily. metFORMIN ER (FORTAMET) 500 mg 24 hr tablet Take 1,000 mg by mouth daily with breakfast. lurasidone (LATUDA) 120 mg tablet Take by mouth once daily. POTASSIUM CITRATE ORAL Take 15 mEq by mouth once daily. sertraline (ZOLOFT) 100 mg tablet Take 200 mg by mouth once daily. telmisartan (MICARDIS) 40 mg tablet Take 40 mg by mouth once daily. levothyroxine 50 mcg cap Take 50 mcg by mouth daily before breakfast. No current facility-administered medications for this visit. REVIEW OF SYSTEMS: Denies, vomiting, dumping syndrome, reactive hypoglycemia, gustatory rhinorrhea, Denies abdominal pain, constipation, diarrhea, melena, hematochezia, Denies paresthesias, gait abnormality, fatigue, weakness, lower extremity edema. PHYSICAL EXAM: There were no vitals taken for this visit. GENERAL APPEARANCE: Pleasant, interacts appropriately and in no apparent distress Appropriately groomed, happy, smiling, and interactive. ENT: Oral mucosa pink without lesions/ulcerations; LUNGS: unlabored on room air negative findings: normal respiratory rate and rhythm, no cough ABDOMEN: Obese SKIN: Skin of normal texture, temperature without rashes/lesions/ulcerations. NEURO/PSYCH: Oriented to person, place, time; appropriate insight and judgement. Appropriate affect. ASSESSMENT AND PLAN: Post-OP course complicated by patient struggling with food noise, which has since improved since starting Mounjaro and Topamax 5 weeks ago. She is struggling to meet fluid and protein goals, but things are improving. DISPOSITION: Return 1 month to Post-op follow up/ individual office visit EDUCATION: Encouraged to continue with healthy lifestyle changes and incorporate cardiovascular and resistance training, Discussed weight loss expectations after bariatric and metabolic surgery, or Discussed importance of protein intake as per the RDN note REFERRALS: N/A LABS: Today: Reviewed labs from 1 month ago, kidney function stable. Labs are WNL. Will monitor PTH, elevated in past with decreased Vitamin D. Vitamin D decreased from 74 ---> 39.6 over the last 3 months. Will continue to monitor. [employer] Investigator recommendations of 5,000IU Vitamin D every other day in addition to Calcium and Vitamin D daily. 1 month: See [facility] Orders Discussed patient's labs with Dictaphone Operator. 1. S/P laparoscopic sleeve gastrectomy - VITAMIN D 25 HYDROXY; Future - VITAMIN B12; Future - VITAMIN B1 (THIAMINE), WHOLE BLOOD; Future - IRON AND TIBC; Future - FOLATE, SERUM; Future - FERRITIN; Future - COMPLETE BLOOD COUNT; Future - BASIC METABOLIC PANEL; Future - THYROID STIMULATING HORMONE; Future 2. Hypothyroidism, unspecified type - Discussed requirements for synthroid may changes based on recent weight loss. Will recheck. Managed by PCP. - THYROID STIMULATING HORMONE; Future 3. Bipolar affective disorder, remission status unspecified (HCC) - Patient is currently in therapy, as well as scheduled to see a psychologist with Bariatric Surgery. 4. Prediabetes - Patient reports her dose of Metformin was decreased from 1000 mg BID to daily. - Continue Mounjaro 2.5 mg. - HEMOGLOBIN A1C; Future Tejal Valdes APRN.[place] I spent a total of 55 minutes on the date of the service which included preparing to see the patient, [id number] patient care, completing clinical documentation, obtaining and/or reviewing separately obtained history, performing a medically appropriate examination, counseling and educating the patient/family/caregiver, ordering medications, tests, or procedures, communicating with other HCPs (not separately reported), communicating results to the patient/family/caregiver, and care coordination (not separately reported). documented in this encounter [facility] 05-18-2024 Note HNO ID: [id number] Author: TEJAL VALDES APRN.[place] Service: ? Author Type: Nurse Practitioner Type: Progress Notes Filed: 05/18/2024 10:33 Note Text: BARIATRIC SURGERY CLINIC FOLLOW UP NOTE DISTANCE HEALTH VISIT This Team Access Model visit is a virtual encounter. It required patient-provider interaction for the medical decision making as documented below. Consent was obtained to complete today's distance health visit. I have communicated my name and active licensure. The patient's identity and physical location were verified at the time of this visit. Either the patient or their legal public health representative has been informed of the risks and benefits of -- and alternatives to -- treatment through a remote evaluation and consents to proceed with the evaluation remotely. Name: Mariia Davidson Index Surgery Date of Surgery: 03/19/2024 Surgeon: Dr. Mcdermott Surgical Procedure: Sleeve gastrectomy Pre-surgical weight: 115.2 kg (254 lb) Override Index Surgery Information? No Gastric Remnant Pathology: FINAL DIAGNOSIS A. Stomach, sleeve gastrectomy: - Segment of gastric body/fundus with no histopathologic abnormality. Other Bariatric Surgeries None Visit: 8 weeks Today's Visit: There were no vitals taken for this visit. No weight on file for this encounter. Member reports a weight of 211 lbs. Last Visit: Wt: 108.7 kg (239 lb 9.6 oz) BMI: 35.38 kg/(m2) Total weight loss: 43 lbs [place] weight: 76.8 kg (169 lb 5 oz) Excess weight: 38.4 kg (84 lb 11 oz) % of excess body weight lost: 51% COMPLICATIONS SINCE LAST VISIT?: Mariia was struggling with a lot of food noise immediately following surgery. She was started on Mounjaro 2.5 mg weekly and Topamax 150 mg about 4-5 weeks ago to help with appetite and cravings. She reports this has been helping immensely. She reports she was experiencing some hypomania symptoms, and her PCP started her Depakote at bedtime. She reports the hypomania symptoms have improved. 24 Hour Recall: B: Skips, Gatorade Zero 16 oz L: Cottage Cheese, Gatorade Zero 16 oz, String Cheese D: 3 pieces of shrimp, 1/2 of an Iced Tea, Gatorade Zero 16 oz. She reports she has a bowel movement every other day. Occasionally she will experience loose stools if she eats something I'm not supposed to eat. She denies diarrhea, constipation and vomiting. Occasionally she experiences nausea is she over eats. She has been urinating normally. As far as fluid intake goes, she reports she has good and bad days, but overall things are improving. She is aware she needs to work on her protein intake. She has been compliant with her post-op vitamin schedule. DIET INTAKE: See above. DAILY SUPPLEMENTS: Calcium: Calcium Citrate w/ vitamin D (1200 - 1500mg) Multivitamin AND Minerals: 1 per day Iron Supplement: included in multi-vitamin Vitamin B12: included in multivitamin Biotin: Yes Vitamin C: included in multi-vitamin Vitamin D3: Will start Other: Pantoprazole EXERCISE: Treadmill 1-2 times a week, 30-40 minutes Are you attending any Support Groups? No attendance HISTORY REVIEWED (electronic chart updated): - medical history - medications - allergies Current Outpatient Medications Medication Sig divalproex DR (DEPAKOTE) 500 mg EC tablet Take 1,000 mg by mouth daily at bedtime. topiramate (TOPAMAX) 100 mg tablet Take 150 mg by mouth once daily. tirzepatide (MOUNJARO) 2.5 mg/0.5 mL pen injector Inject 2.5 mg subcutaneously one time a week. ondansetron (ZOFRAN) 4 mg tablet Take 1 tablet by mouth every 8 hours as needed for nausea/vomiting (for nausea.). biotin 1 mg cap Take by mouth once daily. vitamin b complex capsule Take 1 capsule by mouth once daily. pantoprazole DR (PROTONIX) 40 mg tablet Take 1 tablet by mouth once daily. TO START AFTER SURGERY. Take every day for 6 months after surgery. fenofibrate nanocrystallized (TRICOR) 145 mg tablet Take 145 mg by mouth once daily. gabapentin (NEURONTIN) 300 mg capsule Take 300 mg by mouth two times a day. colestipol (COLESTID) 1 gram tablet Take 2 g by mouth daily at bedtime. clonazePAM (KLONOPIN) 1 mg tablet Take 1 mg by mouth two times a day as needed for anxiety. amLODIPine (NORVASC) 5 mg tablet Take 5 mg by mouth once daily. metFORMIN ER (FORTAMET) 500 mg 24 hr tablet Take 1,000 mg by mouth daily with breakfast. lurasidone (LATUDA) 120 mg tablet Take by mouth once daily. POTASSIUM CITRATE ORAL Take 15 mEq by mouth once daily. sertraline (ZOLOFT) 100 mg tablet Take 200 mg by mouth once daily. telmisartan (MICARDIS) 40 mg tablet Take 40 mg by mouth once daily. levothyroxine 50 mcg cap Take 50 mcg by mouth daily before breakfast. No current facility-administered medications for this visit. REVIEW OF SYSTEMS: Denies, vomiting, dumping syndrome, reactive hypoglycemia, gustatory rhinorrhea, Denies abdominal pain, constipation, diarrhea, melena, hematochezia, Denies paresthe (more content not included)... [facility] 05-18-2024 Miscellaneous Notes Addressed during RD visit. Claudia Guillaume RD May 18, 2024 8:26 AM documented in this encounter [facility] 05-18-2024 Telephone encounter Note Addressed during RD visit. Claudia Guillaume RD May 18, 2024 8:26 AM [facility] Work Phone: 05-18-2024 History of Presen t illness Narrative 6 Week Post-Op This patient encounter was completed virtually due to COVID-19 (audio/visual) using a secure, HIPPA compliant video chat software program with the patient's consent. I have communicated my name and active licensure. The patients identity and physical location were verified at the time of this visit. Either the patient or their legal public health representative has been informed of the risks and benefits of -- and alternatives to -- treatment through remote evaluation and consents to proceed with the evaluation remotely. Surgery Date/Surgeon:03/19/24 RENEA, Dr. Ashia Davidson 43 year old female Wt 95.7 kg (211 lb) LMP 01/15/2024 BMI 31.16 kg/m 43# lost since surgery 51%EWL based on IBW w/ BMI 25 Pre-surgical weight:254 lbs Tolerating by mouth well: Yes Nausea: No Vomiting: No Constipation: Yes - food triggers Diarrhea:No Weak/Shaky/Light-headed: No Estimated Nutrient Intake Average of 3 days' food records: No 24 hour recall/Usual intake: Yes 24 hr recall: B: cottage cheese (12g) L: string cheese (7g) D: shrimp quesdilla w/ vegetables in wrap -- eritrean place (~14g) F: 30 oz + 1/2c sweet tea Per recall:33g Is getting in ~ 3 gatorades Safe: protein shake, cottage cheese, cheese sticks, chicken, eggs Diet advancement/meal pattern reviewed: No Food/beverage intolerance: some soft protein foods Exercise: 1-2x/week walking on treadmill Attendance at support group: no Vitamins: MV: all in one bariatric MV (unsure of brand) 45 Calcium citrate: bariatric soft chews - unsure of brand - 3 per day B complex Vitamin D: 5000 international unit(s) additional daily -- advised to switch to every other day (discussed with ACCOUNTING PROFESSIONAL and agreed) Addressed labs Reinforced behaviors: see below Patient presents 6 weeks post-op, reports feeling lack of hunger and fullness - some days she struggles with getting her protein in. I assured her that this is normal and that she needs to continue to focus on tolerable protein foods/shakes and ample fluids. Did report consuming some foods outside of her current diet phase. She did list off safe foods and I heavily emphasized that she needs to stick to her safe food list if other foods are causing diarrhea. Noticing decreased urine output - normal color, dry mouth. Will make team aware. However, patient reports getting in several gatorades throughout the day but is drinking caffeine as well (Reports starbucks - coffee (oatmilk and esspresso) flat white). She reports more mental health obstacles but is now taking medication to help. Is also taking mounjaro which could be causing GI issues and lack of appetite (more so than usual). Is not meeting her exercise goals at this time, reviewed her most recent labs as well. Will wait to advance diet until follow up, needs to increase overall fluid and protein intake prior. Plan: follow up with RD in 1 week Goals advance to phase III at 2 weeks to 8 weeks post-op (Safe proteins only!) Blood Pressure < 130/80 formal exercise 5-7x/week as tolerated, goal of 30 minutes OR 150 minutes of activity per week Total time in direct patient contact = 30 min. Greater than 50% of the time was spent in counseling and/or coordination of care. Claudia Guillaume RD This note was generated using voice recognition technology and may contain grammatical errors. documented in this encounter [facility] 05-18-2024 Note HNO ID: [id number] Author: CLAUDIA GUILLAUME RD Service: ? Author Type: Registered Dietitian Type: Progress Notes Filed: 05/18/2024 11:07 Note Text: 6 Week Post-Op This patient encounter was completed virtually due to COVID-19 (audio/visual) using a secure, HIPPA compliant video chat software program with the patient's consent. I have communicated my name and active licensure. The patients identity and physical location were verified at the time of this visit. Either the patient or their legal public health representative has been informed of the risks and benefits of -- and alternatives to -- treatment through remote evaluation and consents to proceed with the evaluation remotely. Surgery Date/Surgeon:03/19/24 LSAidan, Dr. Ashia Davidson 43 year old female Wt 95.7 kg (211 lb) LMP 01/15/2024 BMI 31.16 kg/m? 43# lost since surgery 51%EWL based on IBW w/ BMI 25 Pre-surgical weight:254 lbs Tolerating by mouth well: Yes Nausea: No Vomiting: No Constipation: Yes - food triggers Diarrhea:No Weak/Shaky/Light-headed: No Estimated Nutrient Intake Average of 3 days' food records: No 24 hour recall/Usual intake: Yes 24 hr recall: B: cottage cheese (12g) L: string cheese (7g) D: shrimp quesdilla w/ vegetables in wrap -- eritrean place (~14g) F: 30 oz + 1/2c sweet tea Per recall:33g Is getting in ~ 3 gatorades Safe: protein shake, cottage cheese, cheese sticks, chicken, eggs Diet advancement/meal pattern reviewed: No Food/beverage intolerance: some soft protein foods Exercise: 1-2x/week walking on treadmill Attendance at support group: no Vitamins: MV: all in one bariatric MV (unsure of brand) 45 Calcium citrate: bariatric soft chews - unsure of brand - 3 per day B complex Vitamin D: 5000 international unit(s) additional daily -- advised to switch to every other day (discussed with ACCOUNTING PROFESSIONAL and agreed) Addressed labs Reinforced behaviors: see below Patient presents 6 weeks post-op, reports feeling lack of hunger and fullness - some days she struggles with getting her protein in. I assured her that this is normal and that she needs to continue to focus on tolerable protein foods/shakes and ample fluids. Did report consuming some foods outside of her current diet phase. She did list off safe foods and I heavily emphasized that she needs to stick to her safe food list if other foods are causing diarrhea. Noticing decreased urine output - normal color, dry mouth. Will make team aware. However, patient reports getting in several gatorades throughout the day but is drinking caffeine as well (Reports starbucks - coffee (oatmilk and esspresso) flat white). She reports more mental health obstacles but is now taking medication to help. Is also taking mounjaro which could be causing GI issues and lack of appetite (more so than usual). Is not meeting her exercise goals at this time, reviewed her most recent labs as well. Will wait to advance diet until follow up, needs to increase overall fluid and protein intake prior. Plan: follow up with RD in 1 week Goals advance to phase III at 2 weeks to 8 weeks post-op (Safe proteins only!) Blood Pressure < 130/80 formal exercise 5-7x/week as tolerated, goal of 30 minutes OR 150 minutes of activity per week Total time in direct patient contact = 30 min. Greater than 50% of the time was spent in counseling and/or coordination of care. Claudia Guillaume RD This note was generated using voice recognition technology and may contain grammatical errors. [facility] 05-09-2024 Telephone encounter Note Called patient to assess her new nausea. She's states that it started yesterday after drinking a protein shake. She has only been able to get in 2-3 water bottles yesterday. Today she has tried a protein shake again and the same thing happened. Prior to being nauseous she has been able to get in her protein and fluid without issue. States that water/ is not sitting well today-- feels like it is sitting heavy. She took zofran today and isn't sure if it fully helped her or not yet since she hasn't taken in much yet. Drawing In Hand ordered more zofran. Emphasized taking very small sips and sticking to tolerable fluids only. Advised to check back in later this week. Patient states she takes all her vitamins/pills at night therefore it would not have caused any nausea yesterday morning. Claudia Guillaume RD May 09, 2024 2:26 PM [facility] Work Phone: 05-09-2024 Miscellaneous Notes Called patient to assess her new nausea. She's states that it started yesterday after drinking a protein shake. She has only been able to get in 2-3 water bottles yesterday. Today she has tried a protein shake again and the same thing happened. Prior to being nauseous she has been able to get in her protein and fluid without issue. States that water/ is not sitting well today-- feels like it is sitting heavy. She took zofran today and isn't sure if it fully helped her or not yet since she hasn't taken in much yet. Drawing In Hand ordered more zofran. Emphasized taking very small sips and sticking to tolerable fluids only. Advised to check back in later this week. Patient states she takes all her vitamins/pills at night therefore it would not have caused any nausea yesterday morning. Claudia Guillaume RD May 09, 2024 2:26 PM F/U with pt via phone call. Pt denies eating anything out of the ordinary to cause more nausea at this time. Pt states she does not have more than a few doses of Zofran left. Pt believes she is dehydrated, and is now more nauseated and unable to get back on track. Pt would like to discuss with RD. Pt denies fever, chills, pain, or any other concerning symptoms. Advised pt that I will forward concerns to RD and ACCOUNTING PROFESSIONAL's for further instruction/evaluation. Advised pt that I will see if ACCOUNTING PROFESSIONAL can prescribe additional Zofran for nausea. Recommended that pt continue to take Zofran and drink and eat slowly as best as she can. Advised pt that d/t the IV hydration shortage of fluids and time of day today before a holiday, we may not be able to get her into IV hydration, should the team order it. Advised pt that if dehydration S/S increase over the holiday weekend, the pt would need to go to the ED. Pt understand and agrees, no further questions or concerns at this time. Elsy Pang RN, BSN Bariatric Sales And Marketing Assistant documented in this encounter [facility] 05-09-2024 Telephone encounter Note F/U with pt via phone call. Pt denies eating anything out of the ordinary to cause more nausea at this time. Pt states she does not have more than a few doses of Zofran left. Pt believes she is dehydrated, and is now more nauseated and unable to get back on track. Pt would like to discuss with RD. Pt denies fever, chills, pain, or any other concerning symptoms. Advised pt that I will forward concerns to RD and ACCOUNTING PROFESSIONAL's for further instruction/evaluation. Advised pt that I will see if ACCOUNTING PROFESSIONAL can prescribe additional Zofran for nausea. Recommended that pt continue to take Zofran and drink and eat slowly as best as she can. Advised pt that d/t the IV hydration shortage of fluids and time of day today before a holiday, we may not be able to get her into IV hydration, should the team order it. Advised pt that if dehydration S/S increase over the holiday weekend, the pt would need to go to the ED. Pt understand and agrees, no further questions or concerns at this time. Elsy Pang, RN, BSN Bariatric Sales And Marketing Assistant [facility] 04-27-2024 History of Presen t illness Narrative Radiology Service Progress Note PATIENT NAME: Mariia Davidson DATE OF SERVICE: April 27, 2024 TIME: 10:28 AM PATIENT IDENTITY VERIFICATION COMPLETED USING TWO (2) IDENTIFIERS: Name and Date of confirmed by patient verbally. FALL SCREENING: Has the patient had 2 falls in the last year or 1 fall with injury or currently using an Ambulatory Assistive Device (Walker, Cane, Wheelchair, Crutches, etc.)? No PATIENT GENDER DATA: Female. status: : No status: NO. PATIENT RELEVANT IMPLANT DATA REVIEWED: Not Applicable PATIENT PRESENTS WITH AN IMPLANTABLE OR ATTACHED ACCOUNT UNDERWRITER: No RADIOLOGY DEPARTMENT: Mammography PERIPHERAL IV DATA: Not applicable SIGNED BY: Chelsie Kevin April 27, 2024 10:28 AM documented in this encounter [facility] 04-27-2024 Note HNO ID: [id number] Author: MARGIE GONZALEZ Mammo Tech Service: ? Author Type: Business Center Attendant Type: Progress Notes Filed: 04/27/2024 10:28 Note Text: Radiology Service Progress Note PATIENT NAME: Mariia Davidson DATE OF SERVICE: April 27, 2024 TIME: 10:28 AM PATIENT IDENTITY VERIFICATION COMPLETED USING TWO (2) IDENTIFIERS: Name and Date of confirmed by patient verbally. FALL SCREENING: Has the patient had 2 falls in the last year or 1 fall with injury or currently using an Ambulatory Assistive Device (Walker, Cane, Wheelchair, Crutches, etc.)? No PATIENT GENDER DATA: Female. status: : No status: NO. PATIENT RELEVANT IMPLANT DATA REVIEWED: Not Applicable PATIENT PRESENTS WITH AN IMPLANTABLE OR ATTACHED ACCOUNT UNDERWRITER: No RADIOLOGY DEPARTMENT: Mammography PERIPHERAL IV DATA: Not applicable SIGNED BY: Margie Gonzalez [employer] April 27, 2024 10:28 AM [facility] 04-25-2024 Telephone encounter Note LVM for patient to call back and schedule a 1 month follow up appointment. [employer] message sent to patient [facility] 04-25-2024 Miscellaneous Notes LVM for patient to call back and schedule a 1 month follow up appointment. [employer] message sent to patient documented in this encounter [facility] 04-25-2024 Note HNO ID: [id number] Author: NEENA PIKE PSYD Service: ? Author Type: Psychologist Type: Progress Notes Filed: 04/25/2024 13:50 Note Text: [facility] Follow-Up Visit [facility] Progress Note April 25, 2024 CPT Code: 16285 Psychotherapy 16-37 minutes Time: 21 minutes This is a virtual visit using Scutum video visit. It required patient-provider interaction for the medical decision making as documented below. I have communicated my name and active licensure. The patient's identity and physical location were verified at the time of this visit. Either the patient or their legal public health representative has been informed of the risks and benefits of -- and alternatives to -- treatment through a remote evaluation and consents to proceed with the evaluation remotely. Summary of Session: Mariia said she had surgery and she said her process went well but she said afterwards she started struggling with food noise. She said she was so hungry she was eating things she was not ready for. She said her doctor got her back on her Moujaro and Topomax and the food noise was much diminished. She stated currently she was struggling with not wanting to eat at all. She said the thought of food and eating made her nauseas. In session, we assessed how she was eating and she said she felt like she was getting too full and feeling bad every time she ate. We talked about consciously slowing her meal times down to 20-30 minutes and ensuring she is chewing very well between bites. We talked about how it takes our bodies time to notice satiety and she may be eating too fast for her body to notice her fullness cues. She said she could definitely start working on this. She said she felt like she was out of routine after the surgery. She said she was planning to start back to work in the coming week and wanted to start getting into a routine before then. In session, we talked about planning her meals and meal times for the day in advance. She said she liked this idea and thought it would help her get back on track. Patient mood is: calm. Affect is: Appropriate. Patient Data Binge Eating Scale (BES) 09/16/2023 09/26/2023 01/04/2024 Eating Habits Checklist Total Score 28 26 12 <18 = minimal binge eating, 18-26 = moderate binge eating, >27 = severe binge eating Generalized Anxiety Disorder Scale (DORETHA-7) 09/26/2023 01/04/2024 04/17/2024 DORETHA - 7 SCORES Score 4 5 6 (0-4) minimal anxiety, (5-9) mild anxiety, (10-14) moderate anxiety, (15-21) severe anxiety Patient Health Questionnaire (PHQ-9) 09/26/2023 01/04/2024 04/17/2024 PHQ-9 Score 4 1 0 (0-4) minimal depression, (5-9) mild depression, (10-14) moderate depression, (15-19) moderately severe depression, (20-27) severe depression Diagnosis: Eating disorder, unspecified type (primary encounter diagnosis) Bipolar affective disorder, remission status unspecified ([facility]) Current Medications: Current Outpatient Medications Medication Sig acetaminophen (TYLENOL) 500 mg tablet Take 2 tablets by mouth every 6 hours as needed for pain. TO START AFTER SURGERY biotin 1 mg cap Take by mouth once daily. vitamin b complex capsule Take 1 capsule by mouth once daily. oxyCODONE-acetaminophen (PERCOCET) 5-325 mg tablet Take 1 tablet by mouth every 8 hours as needed for pain (HAD SURGERY 03/06/24). LAST DAY PER PATIENT 03/13/[address] (PROTONIX) 40 mg tablet Take 1 tablet by mouth once daily. TO START AFTER SURGERY. Take every day for 6 months after surgery. ondansetron (ZOFRAN) 4 mg tablet Take 1 tablet by mouth every 8 hours as needed for nausea/vomiting (for nausea.). TO START AFTER SURGERY. fenofibrate nanocrystallized (TRICOR) 145 mg tablet Take 145 mg by mouth once daily. gabapentin (NEURONTIN) 300 mg capsule Take 300 mg by mouth two times a day. colestipol (COLESTID) 1 gram tablet Take 2 g by mouth daily at bedtime. clonazePAM (KLONOPIN) 1 mg tablet Take 1 mg by mouth two times a day as needed for anxiety. cholecalciferol, Vitamin D3, (VITAMIN D3) 1,250 mcg (50,000 unit) cap capsule Take 1 capsule by mouth one time a week for 12 doses. Transition to 2,000-4,000 units of Vitamin D OTC after completing 12 weeks amLODIPine (NORVASC) 5 mg tablet Take 5 mg by mouth once daily. metFORMIN ER (FORTAMET) 500 mg 24 hr tablet Take 1,000 mg by mouth two times a day. lurasidone (LATUDA) 120 mg tablet Take by mouth once daily. POTASSIUM CITRATE ORAL Take 15 mEq by mouth once daily. sertraline (ZOLOFT) 100 mg tablet Take 200 mg by mouth once daily. telmisartan (MICARDIS) 40 mg tablet Take 40 mg by mouth once daily. levothyroxine 50 mcg cap Take 50 mcg by mouth daily before breakfast. No current facility-administered medications for this visit. Treatment Modality: Person Centered Supportive Counseling Mindfulness Behavior Modification Plan/Recommendations: - Plan a (more content not included)... [facility] 04-25-2024 History of Presen t illness Narrative [facility] Follow-Up Visit [facility] Progress Note April 25, 2024 CPT Code: 17967 Psychotherapy 16-37 minutes Time: 21 minutes This is a virtual visit using Scutum video visit. It required patient-provider interaction for the medical decision making as documented below. I have communicated my name and active licensure. The patient's identity and physical location were verified at the time of this visit. Either the patient or their legal public health representative has been informed of the risks and benefits of -- and alternatives to -- treatment through a remote evaluation and consents to proceed with the evaluation remotely. Summary of Session: Mariia said she had surgery and she said her process went well but she said afterwards she started struggling with food noise. She said she was so hungry she was eating things she was not ready for. She said her doctor got her back on her Moujaro and Topomax and the food noise was much diminished. She stated currently she was struggling with not wanting to eat at all. She said the thought of food and eating made her nauseas. In session, we assessed how she was eating and she said she felt like she was getting too full and feeling bad every time she ate. We talked about consciously slowing her meal times down to 20-30 minutes and ensuring she is chewing very well between bites. We talked about how it takes our bodies time to notice satiety and she may be eating too fast for her body to notice her fullness cues. She said she could definitely start working on this. She said she felt like she was out of routine after the surgery. She said she was planning to start back to work in the coming week and wanted to start getting into a routine before then. In session, we talked about planning her meals and meal times for the day in advance. She said she liked this idea and thought it would help her get back on track. Patient mood is: calm. Affect is: Appropriate. Patient Data Binge Eating Scale (BES) 09/16/2023 09/26/2023 01/04/2024 Eating Habits Checklist Total Score 28 26 12 <18 = minimal binge eating, 18-26 = moderate binge eating, >27 = severe binge eating Generalized Anxiety Disorder Scale (DORETHA-7) 09/26/2023 01/04/2024 04/17/2024 DORETHA - 7 SCORES Score 4 5 6 (0-4) minimal anxiety, (5-9) mild anxiety, (10-14) moderate anxiety, (15-21) severe anxiety Patient Health Questionnaire (PHQ-9) 09/26/2023 01/04/2024 04/17/2024 PHQ-9 Score 4 1 0 (0-4) minimal depression, (5-9) mild depression, (10-14) moderate depression, (15-19) moderately severe depression, (20-27) severe depression Diagnosis: Eating disorder, unspecified type (primary encounter diagnosis) Bipolar affective disorder, remission status unspecified ([facility]) Current Medications: Current Outpatient Medications Medication Sig acetaminophen (TYLENOL) 500 mg tablet Take 2 tablets by mouth every 6 hours as needed for pain. TO START AFTER SURGERY biotin 1 mg cap Take by mouth once daily. vitamin b complex capsule Take 1 capsule by mouth once daily. oxyCODONE-acetaminophen (PERCOCET) 5-325 mg tablet Take 1 tablet by mouth every 8 hours as needed for pain (HAD SURGERY 03/06/24). LAST DAY PER PATIENT 03/13/[address] (PROTONIX) 40 mg tablet Take 1 tablet by mouth once daily. TO START AFTER SURGERY. Take every day for 6 months after surgery. ondansetron (ZOFRAN) 4 mg tablet Take 1 tablet by mouth every 8 hours as needed for nausea/vomiting (for nausea.). TO START AFTER SURGERY. fenofibrate nanocrystallized (TRICOR) 145 mg tablet Take 145 mg by mouth once daily. gabapentin (NEURONTIN) 300 mg capsule Take 300 mg by mouth two times a day. colestipol (COLESTID) 1 gram tablet Take 2 g by mouth daily at bedtime. clonazePAM (KLONOPIN) 1 mg tablet Take 1 mg by mouth two times a day as needed for anxiety. cholecalciferol, Vitamin D3, (VITAMIN D3) 1,250 mcg (50,000 unit) cap capsule Take 1 capsule by mouth one time a week for 12 doses. Transition to 2,000-4,000 units of Vitamin D OTC after completing 12 weeks amLODIPine (NORVASC) 5 mg tablet Take 5 mg by mouth once daily. metFORMIN ER (FORTAMET) 500 mg 24 hr tablet Take 1,000 mg by mouth two times a day. lurasidone (LATUDA) 120 mg tablet Take by mouth once daily. POTASSIUM CITRATE ORAL Take 15 mEq by mouth once daily. sertraline (ZOLOFT) 100 mg tablet Take 200 mg by mouth once daily. telmisartan (MICARDIS) 40 mg tablet Take 40 mg by mouth once daily. levothyroxine 50 mcg cap Take 50 mcg by mouth daily before breakfast. No current facility-administered medications for this visit. Treatment Modality: Person Centered Supportive Counseling Mindfulness Behavior Modification Plan/Recommendations: - Plan a routine for meals and meal times - Extend meal times to 20-30 minutes and remember to chew until the food is well masticated. Follow Up: 1 month Neena Pike PSYD Clinical Psychologist Bariatrics documented in this encounter [facility] 04-19-2024 Telephone encounter Note Order signed. Lore Jang APRN.CNM [facility] 04-19-2024 Miscellaneous Notes Order signed. Lore Jang APRN.CNM Mammogram order pending. Last annual was in 2021 Jessy Rios RN documented in this encounter [facility] 04-19-2024 Telephone encounter Note Mammogram order pending. Last annual was in 2021 Jessy Rios RN [facility] 04-05-2024 Telephone encounter Note RTW sent to pt via Scutum per Dr. Mcdermott. Elsy Pang RN, BSN Bariatric Sales And Marketing Assistant [facility] 04-05-2024 Miscellaneous Notes RTW sent to pt via Scutum per Dr. Mcdermott. Elsy Pang RN, BSN Bariatric Sales And Marketing Assistant documented in this encounter [facility] 03-30-2024 Telephone encounter Note FRANK Graves from [facility] with Dr. Karina Gonzalez The following message: Dr. Gonzalez wants to hear from Dr. Mcdermott personally regarding the following medication: Mounjaro 5mg weekly Message directly from Dr. Gonzalez: I want to confirm directly from surgeons office that this is safe before I restart it - Mounjaro 5mg weekly. Contact information: Dr. Karina Gonzalez (ask for Dr Gonzalez or [place]) (Attention: Dr. Karina Gonzalez) [facility] 03-30-2024 Miscellaneous Notes FRANK Graves from [facility] with Dr. Karina Gonzalez The following message: Dr. Gonzalez wants to hear from Dr. Mcdermott personally regarding the following medication: Mounjaro 5mg weekly Message directly from Dr. Gonzalez: I want to confirm directly from surgeons office that this is safe before I restart it - Mounjaro 5mg weekly. Contact information: Dr. Karina Gonzalez (ask for Dr Gonzalez or [place]) (Attention: Dr. Karina Gonzalez) documented in this encounter [facility] 03-29-2024 History of Presen t illness Narrative 1 Week Post-Op Patient seen in office Mariia Davidson Surgery Date: 03/19/24 [facility], Dr. Mcdermott CBW: 239 lbs Compliance with Full Liquid Diet: Yes Tolerating by mouth well: Yes Nausea: Yes - when drinking the shake or eating, using zofran and it is helping Vomiting: No Constipation: No Diarrhea:Yes Drinking Slowly: Yes Completed food record: No Journal brought to appointment: No SF powerade/gatorade, decaf coffee or tea , and protein shake (slim fast/premier) 60-90 average protein intake (g) > 64 average liquid intake (oz) Food/beverage intolerance: any non-full liquid foods (cottage cheese, sushi, pizza) Exercise: walking around 30 min daily VRT MV: all in one bariatric MV (unsure of brand) 45 Calcium citrate: bariatric soft chews - unsure of brand - needs 3 per day Written information provided and reviewed: soft diet vitamin schedule Reinforced Behaviors: see below Patient presents 1 week post-op, she is intensely struggling with food noise. Dr. Mcdermott did give the ok for her to go back on mounjaro to help with the food noise. She is also scheduled to see the bariatric psychologist. She reports she is not formally tracking what her fluid She was using a straw during her visit today, reports that it does not bother her/cause discomfort. However, does report more hiccups, advised against using a straw. Also advised she needs to resume keeping a food journal and tracking her foods. Encouraged 3 premier protein shakes per day until her diet advances. She continues to stay active. Has also started her bariatric supplements, will need to increase calcium to TID. Extensively reviewed the importance of sticking to phase III and overall food instructions post-op to prevent post-op complications. Reviewed phase III recommendations/guidelines with patient via bariatric manual, will advance at 04/02 . Plan: follow up with RD at 6 weeks post-op Goals advance to phase III at 2 weeks to 8 weeks post-op Blood Pressure < 130/80 formal exercise 5-7x/week as tolerated, goal of 30 minutes OR 150 minutes of activity per week Total time in direct patient contact = 15 min. Greater than 50% of the time was spent in counseling and/or coordination of care. Claudia Guillaume RD This note was generated using voice recognition technology and may contain grammatical errors. documented in this encounter [facility] 03-29-2024 History of Presen t illness Narrative BSTOP: Initial post-op return, pain evaluation: Total Opiods Used: 9 tabs / 9 tabs Outpatient Pain Score: 0 Unused Opiods Returned: N/A Additional Opiods Returned: N/A Unused opiods disposed of by : N/A Pt used all 9 tablets of 50 mg tramadol prescribed at discharge. Elsy Pang RN, BSN Bariatric Sales And Marketing Assistant [facility] Date of Surgery: 2023 Surgeon: Dr. Mcdermott Surgical Procedure: Sleeve gastrectomy Pre-surgical weight: 254 lb Post-op Medications: Extended Lovenox: Not needed Actigall: NA, s/p cholecystectomy PPI: RX sent Tylenol: RX sent Zofran: RX sent 6 week postop labs ordered. Castro Parks APRN.CNP BARIATRIC SURGERY CLINIC FOLLOW UP NOTE Clinic Date: 03/29/2024 Mariia Davidson, 43 year old [address] [place] [address] [place] [id number] [facility] Date of Surgery: 03/19/2024 Surgeon Attending: Abigail Mcdermott MD Surgical Procedure: Sleeve gastrectomy Pre-surgical weight: 115.2 kg (254 lb) She endorses intense food noise since discharge home. She has been eating salad, sushi, grilled cheese sandwiches, cottage cheese and other foods since surgery. She was educated on the importance of not eating solid foods!! Other Bariatric Surgeries None Time Since Surgery: 10 days Extra Procedures: None COMPLICATIONS DURING ADMISSION: None Operative Complications: No Complications Prior to Discharge: No COMPLICATIONS SINCE DISCHARGE?: NONE Estimated body mass index is 35.38 kg/m as calculated from the following: Height as of this encounter: 175.3 cm (5' 9). Weight as of this encounter: 108.7 kg (239 lb 9.6 oz). [place] weight: 76.8 kg (169 lb 5 oz) Excess weight: 38.4 kg (84 lb 11 oz) % of excess body weight lost: 6.532 kg (14 lb 6.4 oz) (17.00% of excess weight loss) - Down nearly 15 pounds since pre op HISTORY: Fever/Chills: Denies Abdominal Pain: Denies Back Pain: Denies Increased Heart Rate: Denies Bloating/Hiccups: Denies bloating, but endorses constant hiccups Shortness of Breath: Denies Cough/Wheezing: Denies Calf/Thigh pain or swelling: Denies Decreased Urine Output: Denies Nausea/Vomiting: Denies Diarrhea: Denies Bowel function: mostly diarrhea/loose stools with some semi-solid stools Reflux/Regurgitation: denies Current Diet: per handbook Daily approximate Fluid intake: 60+ fl oz of water and Gatorade zeroper 24 hours Daily approximate protein intake: 90 grams per 24 hours Present Activity level: walking and performing ADLs Have you attended any Support Group? No attendance Current Medications: Current Outpatient Medications Medication Sig acetaminophen (TYLENOL) 500 mg tablet Take 2 tablets by mouth every 6 hours as needed for pain. TO START AFTER SURGERY biotin 1 mg cap Take by mouth once daily. vitamin b complex capsule Take 1 capsule by mouth once daily. oxyCODONE-acetaminophen (PERCOCET) 5-325 mg tablet Take 1 tablet by mouth every 8 hours as needed for pain (HAD SURGERY 03/06/24). LAST DAY PER PATIENT 03/13/[address] (PROTONIX) 40 mg tablet Take 1 tablet by mouth once daily. TO START AFTER SURGERY. Take every day for 6 months after surgery. ondansetron (ZOFRAN) 4 mg tablet Take 1 tablet by mouth every 8 hours as needed for nausea/vomiting (for nausea.). TO START AFTER SURGERY. fenofibrate nanocrystallized (TRICOR) 145 mg tablet Take 145 mg by mouth once daily. gabapentin (NEURONTIN) 300 mg capsule Take 300 mg by mouth two times a day. colestipol (COLESTID) 1 gram tablet Take 2 g by mouth daily at bedtime. clonazePAM (KLONOPIN) 1 mg tablet Take 1 mg by mouth two times a day as needed for anxiety. amLODIPine (NORVASC) 5 mg tablet Take 5 mg by mouth once daily. metFORMIN ER (FORTAMET) 500 mg 24 hr tablet Take 1,000 mg by mouth two times a day. lurasidone (LATUDA) 120 mg tablet Take by mouth once daily. POTASSIUM CITRATE ORAL Take 15 mEq by mouth once daily. sertraline (ZOLOFT) 100 mg tablet Take 200 mg by mouth once daily. telmisartan (MICARDIS) 40 mg tablet Take 40 mg by mouth once daily. levothyroxine 50 mcg cap Take 50 mcg by mouth daily before breakfast. cholecalciferol, Vitamin D3, (VITAMIN D3) 1,250 mcg (50,000 unit) cap capsule Take 1 capsule by mouth one time a week for 12 doses. Transition to 2,000-4,000 units of Vitamin D OTC after completing 12 weeks No current facility-administered medications for this visit. Discontinued Medications: There are no discontinued medications. REVIEW OF SYSTEMS: CONSTITUTIONAL: Patient denies fevers, chills, sweats and weight changes. EYES: Patient denies any visual symptoms. EARS, NOSE, AND THROAT: No difficulties with hearing. No symptoms of rhinitis or sore throat. CARDIOVASCULAR: Patient denies chest pains, palpitations, orthopnea and paroxysmal nocturnal dyspnea. RESPIRATORY: No dyspnea on exertion, no wheezing or cough. GI: No nausea, vomiting, diarrhea, constipation, abdominal pain, hematochezia or melena. : No urinary hesitancy or dribbling. No nocturia or urinary frequency. No abnormal urethral discharge. MUSCULOSKELETAL: No myalgias or arthralgias. NEUROLOGIC: No chronic headaches, no seizures. Patient denies numbness, tingling or weakness. PSYCHIATRIC: Patient denies problems with mood disturbance. No problems with anxiety. ENDOCRINE: No excessive urination or excessive thirst. DERMATOLOGIC: Patient denies any rashes or skin changes. PHYSICAL EXAM: PHYSICAL EXAMINATION:BP 122/70 (BP Site: Left Arm, BP Position: Sitting, BP Cuff Size: Regular Adult) Pulse 87 Ht 175.3 cm (5' 9) Wt 108.7 kg (239 lb 9.6 oz) LMP 01/15/2024 BMI 35.38 kg/m GENERAL: No apparent distress. Pt is alert and oriented x3. VITAL SIGNS: HR, BP, Temp; Normal HEENT: Head is normocephalic and atraumatic. Extraocular muscles are intact. Nares appeared normal. Mouth is well hydrated and without lesions. Mucous membranes are moist. NECK: Supple. LUNGS: non-labored respirations, chest rise symmetrical HEART: Regular rate and rhythm ABDOMEN: Soft, nontender, and nondistended. Incisions c/d/I and healing well. EXTREMITIES: Without any cyanosis, clubbing, rash, lesions or edema. NEUROLOGIC: A&Ox3 PSYCHIATRIC: pleasant, maintains eye contact SKIN: No ulceration or induration present. IMPRESSION: Normal post-OP course ASSESSMENT/PLAN: 1. S/P laparoscopic sleeve gastrectomy - ICD9: V45.86, ICD10: Z98.84 (primary diagnosis) - She is overall meeting fluid and protein intake goals, but she is eating solid food due to food noise. She was counseled extensively on the importance of not eating solid foods at this time and strictly adhering to the post bariatric diet. She was given the approval to restart the [place] due to her severe food noise. - Encouraged to start with formal exercise as long as this is tolerated - ZINC BLD - VITAMIN D 25 HYDROXY - VITAMIN B12 - VITAMIN B1 (THIAMINE), WHOLE BLOOD - VITAMIN A/RETINOL - PTH INTACT - IRON AND TIBC - FOLATE, SERUM - FERRITIN - COMPLETE BLOOD COUNT - BASIC METABOLIC PANEL 2. Hypertension, unspecified type - ICD9: 401.9, ICD10: I10 - Continue current medical management 3. Hyperlipidemia, unspecified hyperlipidemia type - ICD9: 272.4, ICD10: E78.5 - Continue current medical management 4. NAFLD (nonalcoholic fatty liver disease) - ICD9: 571.8, ICD10: K76.0 - Continue current healthy lifestyle and dietary changes 5. Pre-diabetes - ICD9: 790.29, ICD10: R73.03 - Continue current medical management 6. Hypothyroidism, unspecified type - ICD9: 244.9, ICD10: E03.9 - Continue current medical management 7. Bipolar affective disorder, remission status unspecified (HCC) - ICD9: 296.80, ICD10: F31.9 - Continue current medical management Activity: OK to start exercise program in next 1-2 weeks. Return to work: 3 weeks Diet: Advance diet per Handbook Counseling: Vitamins, PPI x 6 months, Symptoms of stricture and Ulcer Disposition: Return for follow up/ individual office visit Labs on return: Yes ordered today Abigail Mcdermott MD Advanced Laparoscopic [facility] Bariatric Surgery documented in this encounter [facility] 03-29-2024 Instructions Claudia Guillaume, VOLODYMYR - 03/29/2024 10:43 AM EDT Advance on 04/02 Start with 1oz of soft protein foods at a time, your volume will not be large in the beginning which is OK, use your protein shakes to help you reach your 60g/70g minimum. Overtime your soft protein intake will increase to 3-4 oz (portions should not exceed 3-4 oz/per meal). Food aversions/intolerances are very common during this stage, there may be days when you tolerate one food ok and then the next day it does not sit as well. Evaluate how the food was prepared, it could have been too dry or your stomach is still very sensitive -- all are normal. Please let the team know if you are experiencing nausea/vomiting/diarrhea for a prolonged time in which it is affecting your fluid intake. Some good protein suggestions are: Seafood Tuna, tilapia, grouper, soft flaky fish such as cod, griselda, sea charles - canned or fresh Shellfish Scallops, lobster, shrimp, crab - canned or fresh Dairy Low fat, sugar-free or carbohydrate-controlled [place] yogurt without visible fruit pieces. Low fat cottage cheese, ricotta cheese, artis s cheese or other soft cheeses Eggs Eggbeaters , egg whites or whole eggs: boiled, scrambled, baked, poached (avoid fried or under cooked eggs) Poultry [place], chicken, game hen, duck breast. Deli such as roast turkey breast or chicken breast - canned or fresh Legumes Black beans, kidney (red) beans, garbanzo beans, white beans, lentils etc. Hummus and pureed beans may be well Tolerated. Natural peanut butter (smooth) is ok as well (PB2 or PBFit). Tofu Tofu, Boca Burger (without the bun), [employer] soy products Meat Ham (red meat and pork may be difficult to digest; always check your tolerance level) Low sodium, rind-less, no sugar added cold-cuts and deli meats - canned or fresh During Phase III, no breads, no soups or creamed soups, no cereals, no rice, no noodles, no pastas, no crackers, no potatoes (sweet or white), no yams, no corn, no plantain, no yucca, no fruits, no fruit juices, no vegetables, no carbonation, no caffeine, no alcoholic beverages. Phase III Reminders: Keep seasonings to a minimum, you can use basil/cilantro/afghan seasoning/lemon or [place] to flavor foods Adding low fat syed, broth, or non-fat french yogurt (plain) to food can help keep it soft and moist Start with 1 soft protein food at a time - avoid mixing until you know you can tolerate each food on its own. Food should be soft and moist, if you are not using a sludge control attendant to do this make sure to chew to a liquid texture. Denser animal proteins such as chicken or beef may seem harder to digest than yogurt or eggs -- this is normal! Remember to take small bites and chew very well, food and fluid should be by 30 minutes now! If you notice any food intolerances, stay away from that particular food - stick to your safe foods Keep track of what you are taking in and able to tolerate (a safe foods list) - the Bariatric Team needs to know this info! documented in this encounter [facility] 03-21-2024 Telephone encounter Note I contacted Mariia Davidson for post-operative follow up s/p Sleeve Gastrectomy LVM to follow up re: discharge after surgery. Advised to call office back. 1 week postop appt: 03/29 Castro Parks APRN.CNP [facility] 03-21-2024 Miscellaneous Notes I contacted Mariia Davidson for post-operative follow up s/p Sleeve Gastrectomy LVM to follow up re: discharge after surgery. Advised to call office back. 1 week postop appt: 03/29 Castro Parks APRN.CNP documented in this encounter [facility] 03-13-2024 History and physical note Summary: PAT Images from the original note were not included. [facility] HISTORY AND PHYSICAL EXAMINATION SERVICE DATE: 03/13/2024 SERVICE TIME: 2:20PM PRIMARY CARE PHYSICIAN: Karina Gonzalez MD Assessment Patient has the following medical conditions which may affect abbey-operative course: Body mass index 37.0-37.9, adult BMI around 38. Procedure scheduled for 03/20/24 HTN (hypertension) Well-controlled per patient On amlodipine-continue as prescribed okay to take day of surgery with sip of water telmisartan -hold day of surgery HLD (hyperlipidemia) Procedure scheduled for 03/20/24. On tricor. Non-alcoholic fatty liver disease Procedure scheduled for 03/20/24 Hypothyroidism Procedure scheduled for 03/20/24 On levothyroxine-continue as prescribed okay to take day of surgery with sip of water Pre-diabetes Procedure scheduled for 03/20/24 On metformin -hold day of surgery. Hemoglobin A1C (%) Date Value 12/14/2023 4.9 Medical marijuana use Today at PAT patient denies marijuana use Pre-op examination See note for medical conditions which may affect abbey-operative course that were addressed at today's visit. Hypokalemia due to excessive gastrointestinal loss of potassium Patient states she is on prescribed potassium for hypokalemia. Instructed to continue as prescribed. -surgeon ordered a BMP to be checked today. Potassium Date Value Ref Range Status 02/06/2024 4.4 3.7 - 5.1 mmol/L Final 12/14/2023 4.3 3.7 - 5.1 mmol/L Final Class 2 obesity with body mass index (BMI) of 36.0 to 36.9 in adult See HPI, scheduled for surgery with Dr. Mcdermott March 20, 2024. [place] Activity Status Index: METS: Participate in moderate recreational activites, such as golf, bowling, dancing, doubles tennis, or throwing a baseball or football (6.00 METs) DASI Score: 6 (WORKS OUT ON TREADMILL ) Patient denies any chest pain or undue shortness of breath with the above physical activity. ARISCAT Score: Age: <=50 Preoperative SpO2: >=96% Respiratory infection in the last month: No Preoperative anemia: No Surgical incision: upper abdominal Duration of surgery: 2-3 hrs Emergency procedure: No ARISCAT Score: 31 ANESTHESIA FINDINGS: Intubation History: No history of difficult intubation. No abnormal airway history Significant Anesthesia Considerations: none Airway History: No history of difficult airway No abnormal airway history I - PHYSICAL EVALUATION AIRWAY Patient intubated: No. DENTAL Normal dental observations. Dental findings: teeth intact. II - ANESTHESIA PLAN Anesthetic Plan: general Beta Rosalie Monitoring Plan Post Procedure Analgesic Plan Prepared for Surgery: CONSULTS: The following consults have been initiated at this time: cardiology (See letter in EPIC 01/30/24) and primary care/internal medicine (pending). Planned Anesthetic: general REASON FOR VISIT: Mariia Davidson is a 43 year old female who is scheduled for Procedure(s) with comments: LAPAROSCOPIC LONGITUDINAL GASTRECTOMY, GASTRIC RESTRICTIVE PROCEDURE (N/A) - -Bariatric eras protocol EGD (N/A) at the request of @REFPROV2@ for routine H&P. My final recommendation will be communicated back to the requesting physician by way of shared medical record or letter. Subjective The patient has the following: COVID-19 Immunization Status Overdue - Covid-19 Vaccine () Never done No completion, postpone, frequency change, or communication history exists for this topic. Patient reports being fully vaccinated against COVID-19. Patient reports a prior COVID-19 infection, with an infection date of 07/2023. CHIEF COMPLAINT: The reason for this visit is to perform a comprehensive review of the patient's past medical history, assess their current health status and obtain any additional testing required based on anesthesia guidelines. We will also identify any potential anesthesia problems or contraindications to the planned procedure. HPI: Mariia Davidson is a 43 year old year old female presents for preanesthesia testing. Patient states she has a history of obesity. She has struggled with weight loss her entire life. She has tried different diets including Ozempic recently. She feels she gained weight on Ozempic. She would like a more long-term solution to weight loss. After discussion with the surgeon patient has agreed to surgical intervention. REVIEW OF SYSTEMS: General: Negative for: unintentional weight change and fever. Neurological: Negative for: headaches, multiple sclerosis, seizures, TIA and strokes. Respiratory: Positive for: prior COVID-19 infection. Date of COVID-19 infection: 07/2023. Negative for: asthma, COPD, current cough, bronchodilator used daily for the last 3 months, pneumonia within 6 weeks, tobacco use, URI < 2 weeks and obstructive sleep apnea. Cardiovascular: Positive for: hyperlipidemia and hypertension Negative for: anticoagulation therapy, arrhythmia, atrial fibrillation, CAD, chest pain, CHF, DVT/PE and murmur/valvular heart disease. GI: +chronic constipation Positive for: liver disease (NAFLD) Negative for: abdominal pain, dysphagia, GERD, nausea and vomiting. : Positive for: nephrolithiasis. Negative for: dysuria, frequent urination, hematuria, renal failure and urinary tract infection. 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 Negative for abnormal vaginal bleeding, abnormal vaginal discharge. Endocrine: Positive for: diabetes mellitus (pre-) and hypothyroidism. Patient's diabetes mellitus is controlled by oral agents. Negative for: hyperthyroidism. Hematology: Negative for: anemia, factor V Leiden and von Willebrand disease. Oncology: Negative for: chemo within 30 days and radiotherapy within 90 days. Psych: Positive for: anxiety, bipolar disorder and depression. Musculoskeletal: Negative for: back pain, joint pain and swelling. Skin: Negative for lesions, rash and itching. PAST MEDICAL HISTORY Diagnosis Date bipolar 2 Breast disorder thick breast tissues with mammogram Central vein occlusion of retina Chronic diarrhea HTN (hypertension) Hypothyroidism Nephrolithiasis Non-alcoholic fatty liver disease Obesity depression 2011,2013 Pre-diabetes Preeclampsia 2011 Rh incompatibility Secondary anovulatory infertility PAST SURGICAL HISTORY Procedure Laterality Date BREAST AUGMENTATION W/PROSTHETIC IMPLANT Bilateral 03/06/2024 BREAST SURGERY HX Bilateral 11/2023 lift DELIVERY ONLY 07/02/2015 , low transverse SECTION HX 2011,2012 CHOLECYSTECTOMY HX 2022 LITHOTRIPSY XTRCORP SHOCK WAVE x 3 FAMILY HISTORY Problem Relation Age of Onset None Mother Hypertension Father Cancer Maternal Grandmother Social History Tobacco Use Smoking status: Never Smokeless tobacco: Never Vaping Use Vaping status: Never Used Substance Use Topics Alcohol use: Not Currently Alcohol/week: 2.0 standard drinks of alcohol Types: 2 Glasses of wine per week Comment: STOPPED DRINKING 2020 Drug use: No Prior to Admission medications as of 03/13/24 1352 Medication Sig Last Dose Taking biotin 1 mg cap Take by mouth once daily. Taking Yes vitamin b complex capsule Take 1 capsule by mouth once daily. Taking Yes oxyCODONE-acetaminophen (PERCOCET) 5-325 mg tablet Take 1 tablet by mouth every 8 hours as needed for pain (HAD SURGERY 03/06/24). LAST DAY PER PATIENT 03/13/24 Taking Yes fenofibrate nanocrystallized (TRICOR) 145 mg tablet Take 145 mg by mouth once daily. Taking Yes gabapentin (NEURONTIN) 300 mg capsule Take 300 mg by mouth two times a day. Taking Yes colestipol (COLESTID) 1 gram tablet Take 2 g by mouth daily at bedtime. Taking Yes clonazePAM (KLONOPIN) 1 mg tablet Take 1 mg by mouth two times a day as needed for anxiety. Taking Yes cholecalciferol, Vitamin D3, (VITAMIN D3) 1,250 mcg (50,000 unit) cap capsule Take 1 capsule by mouth one time a week for 12 doses. Transition to 2,000-4,000 units of Vitamin D OTC after completing 12 weeks Taking Yes amLODIPine (NORVASC) 5 mg tablet Take 5 mg by mouth once daily. Taking Yes metFORMIN ER (FORTAMET) 500 mg 24 hr tablet Take 1,000 mg by mouth two times a day. Taking Yes lurasidone (LATUDA) 120 mg tablet Take by mouth once daily. Taking Yes POTASSIUM CITRATE ORAL Take 15 mEq by mouth once daily. Taking Yes sertraline (ZOLOFT) 100 mg tablet Take 200 mg by mouth once daily. Taking Yes telmisartan (MICARDIS) 40 mg tablet Take 40 mg by mouth once daily. Taking Yes levothyroxine 50 mcg cap Take 50 mcg by mouth daily before breakfast. Taking Yes pantoprazole DR (PROTONIX) 40 mg tablet Take 1 tablet by mouth once daily. TO START AFTER SURGERY. Take every day for 6 months after surgery. acetaminophen (TYLENOL) 500 mg tablet Take 2 tablets by mouth every 6 hours for 7 days. TO START AFTER SURGERY ondansetron (ZOFRAN) 4 mg tablet Take 1 tablet by mouth every 8 hours as needed for nausea/vomiting (for nausea.). TO START AFTER SURGERY. No medication comments found. ALLERGIES No Known Allergies Objective PHYSICAL EXAM: General: alert and oriented, healthy appearance and morbidly obese. Pertinent negatives noted - not distressed. Skin: normal color, no rash or lesions. HEENT: Cardiovascular: regular rate and rhythm, normal S1 and S2, no rub, murmurs, or gallop. Respiratory: normal breath sounds, no wheezes or crackles. Abdomen: bowel sounds present and soft. Pertinent negatives noted - not tender. Extremities: no deformity, no edema or tenderness, no joint swelling or clubbing. Neurological: Gait normal. No weakness or sensory deficit. PAIN ASSESSMENT: VITALS: BP 127/86 Pulse 64 Temp (Src) 98.8 (Temporal) Resp 14 Ht 5' 9 (1.75m) Wt 256 lb (116.1kg) SpO2 99% LMP 01/15/2024 BMI 37.79 kg/(m^2). Diagnostic tests reviewed for today's visit: Lab Value Units Date High Low HB 12.1 g/dL 12/14/2023 15.5 11.5 HCT 36.7 % 12/14/2023 46.0 36.0 WBC 6.31 k/uL 12/14/2023 11.00 3.70 PLT 207 k/uL 12/14/2023 400 150 NA 137 mmol/L 02/06/2024 144 136 K 4.4 mmol/L 02/06/2024 5.1 3.7 GLUC 121 mg/dL 02/06/2024 99 74 BUN 33 mg/dL 02/06/2024 21 7 CREAT 1.42 mg/dL 02/06/2024 0.96 0.58 PTSEC No results within date range. INR No results within date range. APTT No results within date range. ALT 24 U/L 12/14/2023 38 7 AST 29 U/L 12/14/2023 35 13 TBILI 0.3 mg/dL 12/14/2023 1.3 0.2 TSH 1.170 mIU/L 12/14/2023 4.200 0.270 Lab Value Units Date High Low HCGQT No results within date range. UHCG No results within date range. HCG, BODY* No results within date range. Lab Value Units Date High Low ABORHD No results within date range. ABSCREEN No results within date range. Hemoglobin A1C (%) Date Value 12/14/2023 4.9 No results found for this or any previous visit (from the past 8760 hour(s)). No results found for this or any previous visit (from the past 48780 hour(s)). Instructions Given to Patient: Instructions located in the after visit summary. Patient given verbal and written preop instructions and voices comprehension and compliance. Implantable Devices: [facility] BREAST IMPLANTS The Following Tests/Procedures Have Been Initiated: Per surgical team: albumin, BMP, T&S, and CBC PAT added con ABO HCG DOS Specimen cup given to patient for HCG day of surgery. HIBICLENS chlorhexidine gluconate wash given with patient instructions. PLAN Body mass index 37.0-37.9, adult [Z68.37] Hypertension, unspecified type [I10] Hyperlipidemia, unspecified hyperlipidemia type [E78.5] NAFL (nonalcoholic fatty liver) [K76.0] Unspecified hypothyroidism [E03.9] Pre-diabetes [R73.03] Medical marijuana use [Z79.899] Diagnosis: Planned Procedure: Procedure(s) with comments: LAPAROSCOPIC LONGITUDINAL GASTRECTOMY, GASTRIC RESTRICTIVE PROCEDURE (N/A) - -Bariatric eras protocol EGD (N/A) I spent a total of 40 minutes on the date of the service which included preparing to see the patient, [id number] patient care, completing clinical documentation, obtaining and/or reviewing separately obtained history, performing a medically appropriate examination, counseling and educating the patient/family/caregiver, and ordering medications, tests, or procedures. SIGNATURE: Loc Felix PA-c PATIENT NAME: Mariia Davidson DATE: March 13, 2024 TIME: 2:20p,m PAGER/CONTACT #: [facility] 03-13-2024 History and physical note Summary: [facility] Images from the original note were not included. [facility]est[facility] HISTORY AND PHYSICAL EXAMINATION SERVICE DATE: 03/13/2024 SERVICE TIME: 2:20PM PRIMARY CARE PHYSICIAN: Karina Gonzalez MD Assessment Patient has the following medical conditions which may affect abbey-operative course: Body mass index 37.0-37.9, adult BMI around 38. Procedure scheduled for 03/20/24 HTN (hypertension) Well-controlled per patient On amlodipine-continue as prescribed okay to take day of surgery with sip of water telmisartan -hold day of surgery HLD (hyperlipidemia) Procedure scheduled for 03/20/24. On tricor. Non-alcoholic fatty liver disease Procedure scheduled for 03/20/24 Hypothyroidism Procedure scheduled for 03/20/24 On levothyroxine-continue as prescribed okay to take day of surgery with sip of water Pre-diabetes Procedure scheduled for 03/20/24 On metformin -hold day of surgery. Hemoglobin A1C (%) Date Value 12/14/2023 4.9 Medical marijuana use Today at PAT patient denies marijuana use Pre-op examination See note for medical conditions which may affect abbey-operative course that were addressed at today's visit. Hypokalemia due to excessive gastrointestinal loss of potassium Patient states she is on prescribed potassium for hypokalemia. Instructed to continue as prescribed. -surgeon ordered a BMP to be checked today. Potassium Date Value Ref Range Status 02/06/2024 4.4 3.7 - 5.1 mmol/L Final 12/14/2023 4.3 3.7 - 5.1 mmol/L Final Class 2 obesity with body mass index (BMI) of 36.0 to 36.9 in adult See HPI, scheduled for surgery with Dr. Mcdermott March 20, 2024. 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 ARISCAT Score: Age: <=50 Preoperative SpO2: >=96% Respiratory infection in the last month: No Preoperative anemia: No Surgical incision: upper abdominal Duration of surgery: 2-3 hrs Emergency procedure: No ARISCAT Score: 31 ANESTHESIA FINDINGS: Intubation History: No history of difficult intubation. No abnormal airway history Significant Anesthesia Considerations: none Airway History: No history of difficult airway No abnormal airway history I - PHYSICAL EVALUATION AIRWAY Patient intubated: No. DENTAL Normal dental observations. Dental findings: teeth intact. II - ANESTHESIA PLAN Anesthetic Plan: general Beta Rosalie Monitoring Plan Post Procedure Analgesic Plan Prepared for Surgery: CONSULTS: The following consults have been initiated at this time: cardiology (See letter in EPIC 01/30/24) and primary care/internal medicine (pending). Planned Anesthetic: general REASON FOR VISIT: Mariia Davidson is a 43 year old female who is scheduled for Procedure(s) with comments: LAPAROSCOPIC LONGITUDINAL GASTRECTOMY, GASTRIC RESTRICTIVE PROCEDURE (N/A) - -Bariatric eras protocol EGD (N/A) at the request of @REFPROV2@ for routine H&P. My final recommendation will be communicated back to the requesting physician by way of shared medical record or letter. Subjective The patient has the following: COVID-19 Immunization Status Overdue - Covid-19 Vaccine ( season) Never done No completion, postpone, frequency change, or communication history exists for this topic. Patient reports being fully vaccinated against COVID-19. Patient reports a prior COVID-19 infection, with an infection date of 07/2023. CHIEF COMPLAINT: The reason for this visit is to perform a comprehensive review of the patient's past medical history, assess their current health status and obtain any additional testing required based on anesthesia guidelines. We will also identify any potential anesthesia problems or contraindications to the planned procedure. HPI: Mariia Davidson is a 43 year old year old female presents for preanesthesia testing. Patient states she has a history of obesity. She has struggled with weight loss her entire life. She has tried different diets including Ozempic recently. She feels she gained weight on Ozempic. She would like a more long-term solution to weight loss. After discussion with the surgeon patient has agreed to surgical intervention. REVIEW OF SYSTEMS: General: Negative for: unintentional weight change and fever. Neurological: Negative for: headaches, multiple sclerosis, seizures, TIA and strokes. Respiratory: Positive for: prior COVID-19 infection. Date of COVID-19 infection: 07/2023. Negative for: asthma, COPD, current cough, bronchodilator used daily for the last 3 months, pneumonia within 6 weeks, tobacco use, URI < 2 weeks and obstructive sleep apnea. Cardiovascular: Positive for: hyperlipidemia and hypertension Negative for: anticoagulation therapy, arrhythmia, atrial fibrillation, CAD, chest pain, CHF, DVT/PE and murmur/valvular heart disease. GI: +chronic constipation Positive for: liver disease (NAFLD) Negative for: abdominal pain, dysphagia, GERD, nausea and vomiting. : Positive for: nephrolithiasis. Negative for: dysuria, frequent urination, hematuria, renal failure and urinary tract infection. 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 Negative for abnormal vaginal bleeding, abnormal vaginal discharge. Endocrine: Positive for: diabetes mellitus (pre-) and hypothyroidism. Patient's diabetes mellitus is controlled by oral agents. Negative for: hyperthyroidism. Hematology: Negative for: anemia, factor V Leiden and von Willebrand disease. Oncology: Negative for: chemo within 30 days and radiotherapy within 90 days. Psych: Positive for: anxiety, bipolar disorder and depression. Musculoskeletal: Negative for: back pain, joint pain and swelling. Skin: Negative for lesions, rash and itching. PAST MEDICAL HISTORY Diagnosis Date bipolar 2 Breast disorder thick breast tissues with mammogram Central vein occlusion of retina Chronic diarrhea HTN (hypertension) Hypothyroidism Nephrolithiasis Non-alcoholic fatty liver disease Obesity depression 2011,2013 Pre-diabetes Preeclampsia 2011 Rh incompatibility Secondary anovulatory infertility PAST SURGICAL HISTORY Procedure Laterality Date BREAST AUGMENTATION W/PROSTHETIC IMPLANT Bilateral 03/06/2024 BREAST SURGERY HX Bilateral 11/2023 lift DELIVERY ONLY 07/02/2015 , low transverse SECTION HX 2011,2012 CHOLECYSTECTOMY HX 2022 LITHOTRIPSY XTRCORP SHOCK WAVE x 3 FAMILY HISTORY Problem Relation Age of Onset None Mother Hypertension Father Cancer Maternal Grandmother Social History Tobacco Use Smoking status: Never Smokeless tobacco: Never Vaping Use Vaping status: Never Used Substance Use Topics Alcohol use: Not Currently Alcohol/week: 2.0 standard drinks of alcohol Types: 2 Glasses of wine per week Comment: STOPPED DRINKING 2020 Drug use: No Prior to Admission medications as of 03/13/24 1352 Medication Sig Last Dose Taking biotin 1 mg cap Take by mouth once daily. Taking Yes vitamin b complex capsule Take 1 capsule by mouth once daily. Taking Yes oxyCODONE-acetaminophen (PERCOCET) 5-325 mg tablet Take 1 tablet by mouth every 8 hours as needed for pain (HAD SURGERY 03/06/24). LAST DAY PER PATIENT 03/13/24 Taking Yes fenofibrate nanocrystallized (TRICOR) 145 mg tablet Take 145 mg by mouth once daily. Taking Yes gabapentin (NEURONTIN) 300 mg capsule Take 300 mg by mouth two times a day. Taking Yes colestipol (COLESTID) 1 gram tablet Take 2 g by mouth daily at bedtime. Taking Yes clonazePAM (KLONOPIN) 1 mg tablet Take 1 mg by mouth two times a day as needed for anxiety. Taking Yes cholecalciferol, Vitamin D3, (VITAMIN D3) 1,250 mcg (50,000 unit) cap capsule Take 1 capsule by mouth one time a week for 12 doses. Transition to 2,000-4,000 units of Vitamin D OTC after completing 12 weeks Taking Yes amLODIPine (NORVASC) 5 mg tablet Take 5 mg by mouth once daily. Taking Yes metFORMIN ER (FORTAMET) 500 mg 24 hr tablet Take 1,000 mg by mouth two times a day. Taking Yes lurasidone (LATUDA) 120 mg tablet Take by mouth once daily. Taking Yes POTASSIUM CITRATE ORAL Take 15 mEq by mouth once daily. Taking Yes sertraline (ZOLOFT) 100 mg tablet Take 200 mg by mouth once daily. Taking Yes telmisartan (MICARDIS) 40 mg tablet Take 40 mg by mouth once daily. Taking Yes levothyroxine 50 mcg cap Take 50 mcg by mouth daily before breakfast. Taking Yes pantoprazole DR (PROTONIX) 40 mg tablet Take 1 tablet by mouth once daily. TO START AFTER SURGERY. Take every day for 6 months after surgery. acetaminophen (TYLENOL) 500 mg tablet Take 2 tablets by mouth every 6 hours for 7 days. TO START AFTER SURGERY ondansetron (ZOFRAN) 4 mg tablet Take 1 tablet by mouth every 8 hours as needed for nausea/vomiting (for nausea.). TO START AFTER SURGERY. No medication comments found. ALLERGIES No Known Allergies Objective PHYSICAL EXAM: General: alert and oriented, healthy appearance and morbidly obese. Pertinent negatives noted - not distressed. Skin: normal color, no rash or lesions. HEENT: Cardiovascular: regular rate and rhythm, normal S1 and S2, no rub, murmurs, or gallop. Respiratory: normal breath sounds, no wheezes or crackles. Abdomen: bowel sounds present and soft. Pertinent negatives noted - not tender. Extremities: no deformity, no edema or tenderness, no joint swelling or clubbing. Neurological: Gait normal. No weakness or sensory deficit. PAIN ASSESSMENT: VITALS: BP 127/86 Pulse 64 Temp (Src) 98.8 (Temporal) Resp 14 Ht 5' 9 (1.75m) Wt 256 lb (116.1kg) SpO2 99% LMP 01/15/2024 BMI 37.79 kg/(m^2). Diagnostic tests reviewed for today's visit: Lab Value Units Date High Low HB 12.1 g/dL 12/14/2023 15.5 11.5 HCT 36.7 % 12/14/2023 46.0 36.0 WBC 6.31 k/uL 12/14/2023 11.00 3.70 PLT 207 k/uL 12/14/2023 400 150 NA 137 mmol/L 02/06/2024 144 136 K 4.4 mmol/L 02/06/2024 5.1 3.7 GLUC 121 mg/dL 02/06/2024 99 74 BUN 33 mg/dL 02/06/2024 21 7 CREAT 1.42 mg/dL 02/06/2024 0.96 0.58 PTSEC No results within date range. INR No results within date range. APTT No results within date range. ALT 24 U/L 12/14/2023 38 7 AST 29 U/L 12/14/2023 35 13 TBILI 0.3 mg/dL 12/14/2023 1.3 0.2 TSH 1.170 mIU/L 12/14/2023 4.200 0.270 Lab Value Units Date High Low HCGQT No results within date range. UHCG No results within date range. HCG, BODY* No results within date range. Lab Value Units Date High Low ABORHD No results within date range. ABSCREEN No results within date range. Hemoglobin A1C (%) Date Value 12/14/2023 4.9 No results found for this or any previous visit (from the past 8760 hour(s)). No results found for this or any previous visit (from the past 30219 hour(s)). Instructions Given to Patient: Instructions located in the after visit summary. Patient given verbal and written preop instructions and voices comprehension and compliance. Implantable Devices: [facility] BREAST IMPLANTS The Following Tests/Procedures Have Been Initiated: Per surgical team: albumin, BMP, T&S, and CBC PAT added con ABO HCG DOS Specimen cup given to patient for HCG day of surgery. HIBICLENS chlorhexidine gluconate wash given with patient instructions. PLAN Body mass index 37.0-37.9, adult [Z68.37] Hypertension, unspecified type [I10] Hyperlipidemia, unspecified hyperlipidemia type [E78.5] NAFL (nonalcoholic fatty liver) [K76.0] Unspecified hypothyroidism [E03.9] Pre-diabetes [R73.03] Medical marijuana use [Z79.899] Diagnosis: Planned Procedure: Procedure(s) with comments: LAPAROSCOPIC LONGITUDINAL GASTRECTOMY, GASTRIC RESTRICTIVE PROCEDURE (N/A) - -Bariatric eras protocol EGD (N/A) I spent a total of 40 minutes on the date of the service which included preparing to see the patient, [id number] patient care, completing clinical documentation, obtaining and/or reviewing separately obtained history, performing a medically appropriate examination, counseling and educating the patient/family/caregiver, and ordering medications, tests, or procedures. SIGNATURE: Loc Felix PA-c PATIENT NAME: Mariia Davidson DATE: March 13, 2024 TIME: 2:20p,m PAGER/CONTACT #: documented in this encounter [facility] 03-12-2024 Instructions Sheila Nowak APRN.CNP - 03/12/2024 2:24 PM EDT PATIENT PREOPERATIVE INSTRUCTIONS Dr. Mcdermott has scheduled you for your procedure at this surgery center: [facility]: [phone], [address] [id number] Please read below carefully for your personalized instructions. SURGERY DATE: 03-20-2024 Your surgeon's office will provide you with your ARRIVAL TIME for surgery. -If you have not received an arrival time by the afternoon before your surgery date, please follow up with your surgeon's office. - If you are scheduled for Tuesday surgery, please make sure you have your arrival time by Tuesday afternoon. -Please be aware that emergency situations arise, which may delay or change your surgical time. If this happens, your surgeon's office will notify you as soon as possible and regret any inconvenience. You need a responsible person to stay and wait for you at the hospital or surgery center during your procedure. - -If you are undergoing an outpatient procedure you must have someone drive you home and stay with you for 24 hours. Your ride home must be at least 18 years old or older. Your surgery may be cancelled if you do not have someone to drive you home or take care of you for 24 hours. Dietary Restrictions: - No solid food after midnight. - You may have 12 ounces of clear liquids (water, clear juices such as apple juice or gatorade, carbonated beverages, clear tea, black coffee, jello) until 2 hours before scheduled arrival at facility. This is important because if you do, your surgery may have to be cancelled Please also follow any preoperative diet directions per Bariatric program's recommendation ( Please call surgeon, dietitian or bariatric ACCOUNTING PROFESSIONAL with questions) Discontinue use of MARILIA inhibitors and Angiotensin Receptor Blockers (ARBs) 24 hours prior to surgery. Blood Thinning Medications: Stop NSAIDS. -DO NOT TAKE (Ibuprofen, Advil, Aleve, Motrin, Naproxen, Celebrex, Mobic, Voltaren, Diclofenac etc.) 7 days before surgery, or as directed by your surgeon. IF YOU TAKE ANY OF THE FOLLOWING BLOOD THINNERS, PLEASE CONTACT YOUR SURGEON AND THE PHYSICIAN WHO PRESCRIBES IT FOR YOU IN ORDER TO GET PERIOPERATIVE INSTRUCTIONS SOON POSSIBLE. BLOOD THINNERS: Aspirin, Coumadin, Plavix, Eliquis, Pradaxa, Xarelto, Lovenox, Brilinta, Effient, Savaysa, Arixtra, etc - Stop Vitamin E, fish oil, multivitamins, Marijuana, CBD oil and other over the counter herbals and dietary supplements 7 days before surgery. -This would not apply to cancer patients who are prescribed Marinol or any other prescription form on marijuana or CBD. - You may take Tylenol (Acetaminophen) or any of your pain medications that do not contain aspirin or NSAIDS as needed. Preoperative Instructions for Patients with Diabetes Mellitus: Please follow up with the provider that manages your diabetes and how to prepare you for surgery. Do not take the morning of surgery: Trajenta, Metformin, Actos/Pioglitazone and Amaryl/Glimepiride. For the following Medications, please HOLD 2 DAYS PRIOR TO SURGERY: Glucotrol/Glipizide, Januvia/Sitagliptin, Glyburide, Prandin/Repaglinide, Starlix/Nateglinide, Symlin/Pramlintide For the following Medications, please HOLD 3 DAYS PRIOR TO SURGERY: Canagliflozin/Invokana, Dapagliflozin/Farxiga ,Empagliflozin/Jardiance, Invokamet/canagliflozin and metformin, Xigduo XR/ dapagliglozin and metformin, Glyxambi/ empagliflozin and metformin, Syndardy/ empagliflozin and metformin For the following Medications, please HOLD 4 DAYS PRIOR TO SURGERY: Ertugliflozin/Steglatro For the following Medications, please HOLD 7 DAYS PRIOR TO SURGERY: GLP-1 AGONIST: Adlyxin (lixisenatide), Bydureon BCise (exenatide suspension), Byetta (exenatide), Mounjaro (tirzepatide), Ozempic (semaglutide injection), Rybelsus (semaglutide tablets), Tanzeum (albiglutide), Trulicity (dulaglutide), Victoza (liraglutide), Wegovy (semaglutide), Saxenda (liraglutide) Insulin Medication Instructions: Please follow up with the provider that manages your Insulin and how to prepare you for surgery. Medications: Approved medications to take the morning of surgery with a sip of water: BP, Heart, thyroid, psych, seizure, and pain medications excluding NSAIDS. Use inhalers as prescribed. Please bring inhalers day of surgery. If you take an MARILIA inhibitors (Angiotensin-converting enzyme inhibitors) and Angiotensin II receptor blockers (ARBs) for your blood pressure please Hold that medication day of surgery. Medications: Unless instructed differently below, stay on all of your medications until your surgery. If you start any new medications after today's visit, please contact your surgeon. Approved medications to take the morning of surgery with a sip of water: Pre Surgery Med Instructions Medication instructions amLODIPine (NORVASC) 5 mg tablet CONTINUE PRESCRIBED biotin 1 mg cap Stop 7 days before surgery cholecalciferol, Vitamin D3, (VITAMIN D3) 1,250 mcg (50,000 unit) cap capsule HOLD DAY OF SURGERY clonazePAM (KLONOPIN) 1 mg tablet CONTINUE PRESCRIBED colestipol (COLESTID) 1 gram tablet CONTINUE PRESCRIBED fenofibrate nanocrystallized (TRICOR) 145 mg tablet CONTINUE PRESCRIBED gabapentin (NEURONTIN) 300 mg capsule CONTINUE PRESCRIBED. TAKE DAY OF SURGERY WITH SIP OF WATER. levothyroxine 50 mcg cap CONTINUE PRESCRIBED. TAKE DAY OF SURGERY WITH SIP OF WATER. lurasidone (LATUDA) 120 mg tablet CONTINUE PRESCRIBED metFORMIN ER (FORTAMET) 500 mg 24 hr tablet HOLD DAY OF SURGERY oxyCODONE-acetaminophen (PERCOCET) 5-325 mg tablet CONTINUE PRESCRIBED POTASSIUM CITRATE ORAL CONTINUE PRESCRIBED sertraline (ZOLOFT) 100 mg tablet CONTINUE PRESCRIBED. TAKE DAY OF SURGERY WITH SIP OF WATER. telmisartan (MICARDIS) 40 mg tablet HOLD DAY OF SURGERY vitamin b complex capsule Stop 7 days before surgery Weight loss medications: Sympathomimetics such as Adipex-P (Phentermine): Stop 4 days before surgery. Contrave (Naltrexone/Bupropion) Hold 2-3 days. Qsymia (Phentermine/Topiramate - Please contact your prescribing provider for Pre op directions. ( depending on the patients dose this medication may need tapered off. They should get pre op directions from their prescribing provider.) GLP-1 Agonists (oral and injectables) Hold 7 days. If you are on dialysis, please check with your dialysis center or registered route associate to see if any adjustments need to be made to your schedule for the week of your surgery If you start any new medications after today's visit, please contact the surgeon's office. Important Reminders: - Candy, mints, and tobacco products are NOT permitted the morning of surgery. - Hearing aids, dentures and glasses may be worn the morning of surgery. - NO jewelry, body piercings, makeup, hairpins or contacts are to be worn the day of surgery. -If you use CPAP/BIPAP, you can bring the machine with you the day of surgery. - If you are prescribed inhalers for breathing, continue using them AND bring them to the surgery center. -- Leave ALL valuables and money at home or with family members. -Oral hygiene and a shower or bath are required the evening before or the morning of surgery. - NO lotion, creams, powders or deodorants on the skin the day of surgery. -Wear loose, comfortable clothing that will accommodate bandages. -Your length of stay will be determined by your surgeon -- If you have a stimulator, implant or pump that requires a remote please bring the remote with you the day of surgery. - You will need to have someone else (Family or friend) drive you home once discharged from the hospital. You are not allowed to drive yourself home after surgery. - YOU MUST HAVE A RESPONSIBLE IRONWORKER MACHINE OPERATOR TO TAKE YOU HOME. A HAT MEASURER, CAB OR UBER IRONWORKER MACHINE OPERATOR CANNOT BE MADE A RESPONSIBLE IRONWORKER MACHINE OPERATOR. - You cannot stay in a hotel alone after outpatient surgery. You will not be permitted to have your surgery, if you do not have someone to take care of you. -It is recommended patients have a 72-hour period between getting their vaccine and date of surgery. If you develop symptoms such as a fever, cold, or flu, or have other changes to your health within TWO DAYS of scheduled surgery or the morning of surgery, please contact the surgery center above. Visitors to any [facility] facility: An individual who is sick should not visit. Visitors to patients with COVID-19 must follow these guidelines, which include wearing a mask, eye protection, gown and gloves. [facility]- Visitations are: Visitation hours are from 7 a.m. to 9 p.m. Pre- Surgery-Patients may have up to two visitors at a time. PACU-Patients may have up to 1-2 visitors at a time. Personal Belongings: -Please have your photo ID and insurance cards. -If you do not have a copy of advance directives on file with us, please bring a copy with you on the day of surgery. If you already have an Advance Directive, please fax a copy to [phone] or email to for it to be added to your chart. If you do not have an Advance Directive, you can find the appropriate form and more information at [email or web address]. We recommend that you complete the Advance Directive form found on the website and bring it with you the day of your surgery. It can be witnessed and scanned into your chart that day. documented in this encounter [facility] 03-12-2024 History of Presen t illness Narrative BARIATRIC SURGERY CLINIC FOLLOW UP NOTE DISTANCE HEALTH VISIT This Team Access Model visit is a virtual encounter. It required patient-provider interaction for the medical decision making as documented below. Consent was obtained to complete today's distance health visit. I have communicated my name and active licensure. The patient's identity and physical location were verified at the time of this visit. Either the patient or their legal public health representative has been informed of the risks and benefits of -- and alternatives to -- treatment through a remote evaluation and consents to proceed with the evaluation remotely. HPI: Mariia Davidson a 43 year old female is scheduled for Lap Sleeve Gastrectomy with Dr. Mcdermott on 03/20/2024. Denies recent illness, hospitalization, ED visits, medication changes. HISTORY REVIEWED (electronic chart updated): - medical history - medications - allergies PAST MEDICAL HISTORY Diagnosis Date bipolar 2 Breast disorder thick breast tissues with mammogram Central vein occlusion of retina Chronic diarrhea HTN (hypertension) Hypothyroidism Nephrolithiasis Non-alcoholic fatty liver disease Obesity depression 2011,2013 Pre-diabetes Preeclampsia 2012 Rh incompatibility Secondary anovulatory infertility Social: Social History Tobacco Use Smoking status: Never Smokeless tobacco: Never Vaping Use Vaping status: Never Used Substance Use Topics Alcohol use: Not Currently Alcohol/week: 2.0 standard drinks of alcohol Types: 2 Glasses of wine per week Drug use: No Medications: Current Outpatient Medications Medication Sig cholecalciferol, Vitamin D3, (VITAMIN D3) 1,250 mcg (50,000 unit) cap capsule Take 1 capsule by mouth one time a week for 12 doses. Transition to 2,000-4,000 units of Vitamin D OTC after completing 12 weeks amLODIPine (NORVASC) 5 mg tablet Take 5 mg by mouth once daily. FENOFIBRATE MICRONIZED 145 MG TAB 145 mg once daily. metFORMIN ER (FORTAMET) 500 mg 24 hr tablet Take 1,000 mg by mouth two times a day. lurasidone (LATUDA) 120 mg tablet Take by mouth. POTASSIUM CITRATE ORAL Take 15 mEq by mouth once daily. sertraline (ZOLOFT) 100 mg tablet Take 200 mg by mouth once daily. gabapentin (NEURONTIN) 100 mg capsule Take 300 mg by mouth two times a day. clonazePAM (KLONOPIN) 2 mg tablet Take 2 mg by mouth two times a day as needed. telmisartan (MICARDIS) 40 mg tablet Take 40 mg by mouth once daily. levothyroxine 50 mcg cap Take 50 mcg by mouth daily before breakfast. colestipol HCl (COLESTIPOL ORAL) Take by mouth. No current facility-administered medications for this visit. REVIEW OF SYSTEMS General: No fatigue or fevers HEENT: Negative for frequent or significant headaches, No changes in hearing or vision, no nose bleeds or other nasal problems PAP Therapy: Not needed. GI:No nausea, vomiting, or diarrhea and No heartburn or reflux symptoms Muskuloskeletal: Negative for joint pain or swelling, back pain or muscle pain Skin: Negative for lesions, rash, and itching Psych: Negative for sleep disturbance, mood disorder and recent psychosocial stressors PHYSICAL EXAMINATION Ht 175.3 cm (5' 9) Wt 115.2 kg (254 lb) LMP 10/09/2021 BMI 37.51 kg/m GENERAL APPEARANCE: Pleasant, interacts appropriately and in no apparent distress. Appropriately groomed, happy, smiling, and interactive SKIN: Skin of normal texture, temperature without rashes/lesions/ulcerations. LUNGS: unlabored on room air negative findings: normal respiratory rate no cough NEURO/PSYCH: Oriented to person, place, time; appropriate insight and judgement. Appropriate affect. The plan of treatment for Mariia Davidson is Required monthly visits: 6 of 6 months. Patient is interested in: Sleeve Gastrectomy EGD: defer to UGI Upper GI: Esophagus: Swallowing function unremarkable. Prominent cricopharyngeus impression was noted.. No hiatal hernia is seen. No gastroesophageal reflux identified. Stomach: There did appear to be fluid present within the stomach. There is limited evaluation of the stomach to some degree. Duodenum: No evidence of ulceration. RUQ US: Fatty liver. Enlarged spleen(15.7 cm). Nephrolithiasis on the left. Possible bilateral nephrocalcinosis. Mildly dilated common duct. Prior cholecystectomy. Visualization is somewhat suboptimal due to patient build Sleep Study: Mild ALESSANDRO, does not need CPAP per pulm CXR:per pulmonary clearance EKG:per cardiac clearance H Pylori NA planned SG Labs: complete, increased creatinine (follow up with PCP) Nicotine use <12 months: NA, negative Tox: +uses MJ; + marijuana(MM card scanned in) and benzos (has rx for klonopin) Antiplatelet/anticoagulants: No Immunosuppressive therapy: No Estrogen therapy: No Evaluations Psychology: complete Nutrition: cleared Education class: complete Clearances: Cardiac (low; OV 8/19), Pulmonary(low; OV 12/05 - does not need CPAP), and PCP (req again today) Risk Calculator: VTE Risk: OR time < 3 hours = 0.16% OR time > 3 hours = 0.25% ISS score: not diabetic Adverse Event score: 1.35% Post-op Medications: Extended Lovenox: Not needed Actigall: NA, s/p cholecystectomy PPI: RX sent Tylenol: RX sent Zofran: RX sent ASSESSMENT/PLAN: 1. Class 2 obesity with body mass index (BMI) of 37.0 to 37.9 in adult, unspecified obesity type, unspecified whether serious comorbidity present - ICD9: 278.00, V85.37, ICD10: E66.9, Z68.37 - scheduled for Lap Sleeve Gastrectomy with Dr. Mcdermott on 03/20/2024. - PANTOPRAZOLE 40 MG TABLET,DELAYED RELEASE - ACETAMINOPHEN 500 MG TABLET - ONDANSETRON HCL 4 MG TABLET Preoperative instructions discussed with the patient in detail. Discussed stopping all NSAIDs medication, herbal remedies, vitamins 7 days prior to surgery. Reviewed further medications to stop 1 day prior to surgery, medications to take the morning of surgery if applicable Discussed medications in detail, all questions were answered. Discharge instructions were discussed with the patient. We discussed symptoms and signs that warrant immediate medical attention (rare). We discussed signs and symptoms that warrant a phone call to the office. We discussed that some nausea is expected immediately after surgery, if unable to tolerate oral intake to please contact the office immediately. We discussed that some postoperative pain is expected, if he were to express severe abdominal pain please contact the office. Pre-op BSTOP documentation: Patient has been given the BSTOP opioid brochure and has been educated on the disposal of unused post-op opioids. Patient is to bring unused opioids to the office at the 1 week post-op visit - Yes. Patient received extensive teaching regarding incision care, signs and symptoms of a surgical infection, and reviewed to contact the surgical team for any concerns regarding incisions. Confirmed completed patient education class prior to scheduled surgery. 1 week PO appt: 03/29 PST appt: 03/13 VLCD start: 03/06 Patient verbally confirms the above information. This information was sent to the patient through a Eveo message as well. I spent a total of 30 minutes on the date of the service which included preparing to see the patient, [id number] patient care, completing clinical documentation, obtaining and/or reviewing separately obtained history, performing a medically appropriate examination, counseling and educating the patient/family/caregiver, ordering medications, tests, or procedures, and communicating results to the patient/family/caregiver. Castro Parks APRN.CNP Medical Decision Making: Problems: Low: Stable chronic illness Data: Unique source(s) for external note(s) reviewed: 1 Unique test result(s) reviewed: 1 Assessment requiring an independent historian(s) Risk: Moderate: Drug management Medical Decision Making Level: 4 - Moderate documented in this encounter [facility] 03-05-2024 Telephone encounter Note High-dose vitamin D Rx is for one-time use only. [facility] 03-05-2024 Miscellaneous Notes High-dose vitamin D Rx is for one-time use only. documented in this encounter [facility] 02-29-2024 History of Presen t illness Narrative Date: February 29, 2024 DISTANCE HEALTH VISIT This Team Access Model visit is a virtual encounter conducted via an educational class in a group encounter. It is required patient-provider interaction for the medical decision making as documented below. Consent was obtained to complete today's distance health visit. Name: Mariia Davidson CHIEF COMPLAINT: This is a 43 year old female with morbid obesity who presents to clinic for bariatric surgery and is completing an educational class today. HISTORY OF PRESENTING ILLNESS: This individual is currently enrolled in the [facility] pursuing weight loss surgery and presents to complete preoperative requirements.Mariia Davidson has been seen monthly for medically supervised weight loss and is being evaluated on their lifestyle modifications. Denies any difficulty hearing presentation. Denies any difficulty visualizing educational materials PHYSICAL EXAM: General Appearance: Well appearing, alert, in no acute distress, well-hydrated, well nourished. IMPRESSION: Mariia Davidson is a 43 year old female with the following diagnosis and co-morbidities: Morbid (severe) obesity PLAN: Counseling and surgical care coordination was addressed during this educational class. Pathophysiology and side effects of surgery were discussed. Medications to be stopped 2 weeks and 1 week prior to surgery were discussed. Discharge instructions in terms of dietary restrictions, activity requirements, medications, follow-up were reviewed. Vitamins and supplements were reviewed with samples provided. Additionally, signs and symptoms of vitamin deficiencies reviewed. Postoperative medication management was explained. Received prevention education in terms of post operative problems and complications. Patient was educated on signs and symptoms requiring immediate and/or emergent medical attention. This patient also received dietary education. Patient was educated on incision care, signs of surgical site infection, and importance of contacting surgical team for incision concerns. Patient was educated on risk and should not get within two years after bariatric surgery (if applicable). could result in very poor weight loss and could be dangerous for the baby. This individual received an educational handouts reviewing the for mentioned class materials. At the end of class, Mariia Davidson was provided time to answer questions. Denies any further questions or concerns. [facility] Patient agreement was reviewed and Mariia Davidson received a copy of the patient agreement. The patient is aware by receiving this agreement, this accepts their understanding of the agreement and that surgery may not be recommended for medical and behavorial health reasons. Total time of virtual encounter: 60 [address] Parks APRN.KINSEY documented in this encounter [facility] 02-17-2024 History of Presen t illness Narrative Sleeve gastrectomy PST EGD documented in this encounter [facility] 02-17-2024 History of Presen t illness Narrative BARIATRIC SURGERY NEW PATIENT CONSULTATION HISTORY AND PHYSICAL Date: February 17, 2024 Time: 1:00 PM Mariia Davidson is a 43 year old year old female with obesity (Body mass index is 37.54 kg/m .), HTN (amlodipine, telmisartan), HLD (fenofibrate), nephrolithiasis (s/p multiple lithotripsies), NAFLD, Bipolar 2 (klonopin, latuda, zoloft), hypothyroidism (synthroid), pre-diabetes (A1c 5.4), chronic diarrhea (colestid) who presents to the clinic today for consideration of bariatric surgery. She has completed all bariatric program requirements. Her weight today is 254 pounds, which is down from her previous weight of 269 pounds. Per ACCOUNTING PROFESSIONAL note: She has hypertension, currently taking 2 antihypertensives. She also has hyperlipidemia, taking fenofibrate. She denies further cardiac issues such as CHF, CAD, arrhythmias. She has a history of numerous episodoes of nephrolithiasis, has underwent multiple lithotripsies. She has bipolar 2 disorder, currently well-managed with medication, counselor, and psychiatrist. Denies acid reflux symptoms, heartburn, dysphagia. She does struggle with chronic constipation ever since having lap cholecystectomy. She takes Colestid which manages her symptoms well. Denies frequent use of NSAIDs Denies history of DVT/PE, diabetes, asthma, COPD. Denies tobacco/nicotine use, exposure to secondhand smoke, alcohol use, and illicit drug use. 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 PAST SURGICAL HISTORY 07/02/2015: DELIVERY ONLY Comment: , low transverse 2011,2012: SECTION HX No date: CHOLECYSTECTOMY HX Comment: 2022 No date: LITHOTRIPSY XTRCORP SHOCK WAVE No date: SUSPENSION OF BREAST Comment: lift FAMILY HISTORY Problem Relation Age of Onset None Mother Hypertension Father Cancer Maternal Grandmother Social History Tobacco Use Smoking status: Never Smokeless tobacco: Never Vaping Use Vaping status: Never Used Substance Use Topics Alcohol use: Not Currently Alcohol/week: 2.0 standard drinks of alcohol Types: 2 Glasses of wine per week Drug use: No Current Outpatient Medications Medication Sig cholecalciferol, Vitamin D3, (VITAMIN D3) 1,250 mcg (50,000 unit) cap capsule Take 1 capsule by mouth one time a week for 12 doses. Transition to 2,000-4,000 units of Vitamin D OTC after completing 12 weeks amLODIPine (NORVASC) 5 mg tablet Take 5 mg by mouth once daily. FENOFIBRATE MICRONIZED 145 MG TAB 145 mg once daily. metFORMIN ER (FORTAMET) 500 mg 24 hr tablet Take 1,000 mg by mouth two times a day. lurasidone (LATUDA) 120 mg tablet Take by mouth. POTASSIUM CITRATE ORAL Take 15 mEq by mouth once daily. sertraline (ZOLOFT) 100 mg tablet Take 200 mg by mouth once daily. gabapentin (NEURONTIN) 100 mg capsule Take 300 mg by mouth two times a day. clonazePAM (KLONOPIN) 2 mg tablet Take 2 mg by mouth two times a day as needed. telmisartan (MICARDIS) 40 mg tablet Take 40 mg by mouth once daily. levothyroxine 50 mcg cap Take 50 mcg by mouth daily before breakfast. colestipol HCl (COLESTIPOL ORAL) Take by mouth. No current facility-administered medications for this visit. ALLERGIES No Known Allergies Review of Systems Constitutional: Negative for chills, diaphoresis, fever and malaise/fatigue. HENT: Negative for congestion, hearing loss, nosebleeds, sinus pain, sore throat and tinnitus. Eyes: Negative for blurred vision, double vision, pain and redness. Respiratory: Negative for cough, hemoptysis, sputum production, shortness of breath and wheezing. Cardiovascular: Negative for chest pain, palpitations, orthopnea, leg swelling and PND. Gastrointestinal: Positive for diarrhea. Negative for abdominal pain, blood in stool, constipation, heartburn, nausea and vomiting. Genitourinary: Negative for dysuria, frequency, hematuria and urgency. Musculoskeletal: Negative for back pain, falls, joint pain, myalgias and neck pain. Skin: Negative for itching and rash. Neurological: Negative for dizziness, speech change, focal weakness, seizures, loss of consciousness, weakness and headaches. Endo/Heme/Allergies: Does not bruise/bleed easily. Psychiatric/Behavioral: Positive for depression. Negative for hallucinations, memory loss, substance abuse and suicidal ideas. The patient is nervous/anxious. The patient does not have insomnia. Physical Exam Vitals reviewed. Constitutional: Appearance: Normal appearance. She is obese. HENT: Head: Normocephalic and atraumatic. Nose: Nose normal. Eyes: General: No scleral icterus. Extraocular Movements: Extraocular movements intact. Conjunctiva/sclera: Conjunctivae normal. Pupils: Pupils are equal, round, and reactive to light. Cardiovascular: Rate and Rhythm: Normal rate. Pulmonary: Effort: Pulmonary effort is normal. No respiratory distress. Skin: General: Skin is warm and dry. Coloration: Skin is not jaundiced or pale. Neurological: Mental Status: She is alert and oriented to person, place, and time. Psychiatric: Behavior: Behavior normal. Required monthly visits: 6 of 6 months. Patient is interested in: Sleeve Gastrectomy EGD: defer to UGI Upper GI: Esophagus: Swallowing function unremarkable. Prominent cricopharyngeus impression was noted.. No hiatal hernia is seen. No gastroesophageal reflux identified. Stomach: There did appear to be fluid present within the stomach. There is limited evaluation of the stomach to some degree. Duodenum: No evidence of ulceration. RUQ US: Fatty liver. Enlarged spleen(15.7 cm). Nephrolithiasis on the left. Possible bilateral nephrocalcinosis. Mildly dilated common duct. Prior cholecystectomy. Visualization is somewhat suboptimal due to patient build Sleep Study: Mild ALESSANDRO, does not need CPAP per pulm CXR:per pulmonary clearance EKG:per cardiac clearance H Pylori NA planned SG Labs: complete, increased creatinine (follow up with PCP) Nicotine use <12 months: NA, negative Tox: +uses MJ; + marijuana(MM card scanned in) and benzos (has rx for klonopin) Antiplatelet/anticoagulants: No Immunosuppressive therapy: No Estrogen therapy: No Evaluations Psychology: complete Nutrition: cleared Education class: ongoing Clearances: Cardiac (low; OV 8/19), Pulmonary(low; OV 6/25 - does not need CPAP), and PCP Risk Calculator: VTE Risk: OR time < 3 hours = 0.16% OR time > 3 hours = 0.25% ISS score: not diabetic Adverse Event score: 1.35% Post-op Medications: Extended Lovenox: Not needed Actigall: NA, s/p cholecystectomy PPI: Will require Plan IMPRESSION: Mariia Davidson is a 43 year old year old female who presents for consideration of bariatric surgery (Body mass index is 37.54 kg/m .). She does meet the criteria for a surgical weight loss procedure according to NIH guidelines. The plan of treatment for Mariia is to continue with the consultations and tests ordered today in hopes of qualifying for pre-operative clearance for bariatric surgery. She is interested in: Sleeve gastrectomy ASSESSMENT/PLAN: 1. Class 2 obesity with body mass index (BMI) of 37.0 to 37.9 in adult, unspecified obesity type, unspecified whether serious comorbidity present - ICD9: 278.00, V85.37, ICD10: E66.9, Z68.37 (primary diagnosis) - Today in clinic we reviewed the potential risks and complications associated with sleeve gastrectomy. We reviewed both the informed consent form and the risk education packet. All of the patient's questions and concerns were addressed to the best of my ability. I specifically discussed with the patient my concerns of the risk of temporary versus chronic GERD in the setting of sleeve gastrectomy and the risk of poor weight loss or weight regain. - I encouraged the patient to reach out via phone call or Scutum message if any questions or concerns were to arise between now and the day of surgery. - They are vaccinated against COVID. They were also advised to inform our office if they were to contract COVID between now and the day of surgery as this could potentially increase their risk of DVT and PE and they may require prolonged VTE prophylaxis after surgery. - We have extensively discussed the risks associated with bariatric surgery including but not limited to postoperative bleeding, infection, deep vein thrombosis, pulmonary embolism, dehydration/vitamin deficiency/malnutrition, pneumonia, myocardial infarction, marginal ulceration, and bowel obstruction. Although we will perform appropriate precautions to minimize patient exposure and risk, by undergoing surgery during the Covid-19 pandemic, the patient understands and accepts the unpredictable nature of the Covid-19 virus and the possibility of risks specific to the Covid-19 virus including but not limited to pneumonia, respiratory failure, sepsis, blood clots in different organs, heart attack, stroke, multiple organ failure, and . All of these risk factors are especially heightened in patients with obesity. The patient understands and accepts these risks prior to proceeding with bariatric surgery. - CONSULT TO PRE-SURGICAL TESTING (AG) - H&P FOR SURGERY - COMPLETE BLOOD COUNT - TYPE AND SCREEN,30 DAY - BASIC METABOLIC PANEL - ALBUMIN 2. Hypertension, unspecified type - ICD9: 401.9, ICD10: I10 - Continue current medical management 3. Hyperlipidemia, unspecified hyperlipidemia type - ICD9: 272.4, ICD10: E78.5 - Continue current medical management 4. NAFLD (nonalcoholic fatty liver disease) - ICD9: 571.8, ICD10: K76.0 - Continue healthy and lifestyle modifications 5. Bipolar 2 disorder (HCC) - ICD9: 296.89, ICD10: F31.81 - Continue current medical management 6. Hypothyroidism, unspecified type - ICD9: 244.9, ICD10: E03.9 - Continue current medical management 7. Pre-diabetes - ICD9: 790.29, ICD10: R73.03 - Continue current medical management 8. Chronic diarrhea - ICD9: 787.91, ICD10: K52.9 - Continue current medical management 9. Medical marijuana use - ICD9: V58.69, ICD10: Z79.899 - Use edibles only Nutrition Counseling Practice these: - Eat 3 meals daily--can use approved/recommended protein shake as 1 meal replacement (should be <200 calories, 20-30g protein, <5g added sugar) - Keep a food journal 5-7x/week (consider Erly or [employer] kaitlynn) and demonstrate meeting protein goal (60-90g protein for females, 70-105g protein for males)- Lean meats, fish, low fat dairy - cottage cheese, [place] yogurt, light yogurt, cheese, ricotta cheese, nuts, peanut butter, beans/legumes. Eat protein first at all meals. and 64oz of caffeine-free, carbonation-free fluids at least 5 days per week - engage in formal, planned exercise 5x/week for 30 minutes of cardiovascular activity OR 150+ minutes of cardiovascular activity per week - eliminate all caffeine, carbonation, alcohol and sugar-containing beverages from diet --consider sugar-free drink mixes, water, decaf coffee and tea - Separate eating and drinking by 30 minutes - Chew your food 20-30x per bite - Sip beverages slowly--no guzzling or gulping Information regarding probable and potential postoperative complications, dietary and medical postoperative limitations, and potential cosmetic sequelae has been received by individual. Abigail Mcdermott MD [facility] Medical Decision Making: Problems: Moderate: 2+ stable chronic illnesses Data: Unique test result(s) reviewed: 3+ Unique test(s) ordered: 3+ Discussed management or test w/ external physician/QHCP/source Risk: Moderate: Drug management High: Decision on elective major surgery w/ risk factors Medical Decision Making Level: 5 - High - Labs show increased creatinine- she was going to be following up with PCP Required monthly visits: 6 of 6 months. Patient is interested in: Sleeve Gastrectomy EGD: defer to UGI Upper GI: Esophagus: Swallowing function unremarkable. Prominent cricopharyngeus impression was noted.. No hiatal hernia is seen. No gastroesophageal reflux identified. Stomach: There did appear to be fluid present within the stomach. There is limited evaluation of the stomach to some degree. Duodenum: No evidence of ulceration. RUQ US: Fatty liver. Enlarged spleen(15.7 cm). Nephrolithiasis on the left. Possible bilateral nephrocalcinosis. Mildly dilated common duct. Prior cholecystectomy. Visualization is somewhat suboptimal due to patient build Sleep Study: Mild ALESSANDRO, does not need CPAP per pulm CXR:per pulmonary clearance EKG:per cardiac clearance H Pylori NA planned SG Labs: complete, increased creatinine (follow up with PCP) Nicotine use <12 months: NA, negative Tox: +uses MJ; + marijuana(MM card scanned in) and benzos (has rx for klonopin) Antiplatelet/anticoagulants: No Immunosuppressive therapy: No Estrogen therapy: No Evaluations Psychology: complete Nutrition: cleared Education class: ongoing Clearances: Cardiac (low; OV 8/19), Pulmonary(low; OV 6/25 - does not need CPAP), and PCP Risk Calculator: VTE Risk: OR time < 3 hours = 0.16% OR time > 3 hours = 0.25% ISS score: not diabetic Adverse Event score: 1.35% Post-op Medications: Extended Lovenox: Not needed Actigall: NA, s/p cholecystectomy PPI: Will require PST orders placed Rosalia Gaviria APRN.TSO documented in this encounter [facility] 02-15-2024 Telephone encounter Note Medical clearance letter sent/faxed to Dr. Karina Gonzalez MD. Elsy Pang RN, BSN Bariatric Sales And Marketing Assistant [facility] 02-15-2024 Miscellaneous Notes Medical clearance letter sent/faxed to Dr. Karina Gonzalez MD. Elsy Pang RN, BSN Bariatric Sales And Marketing Assistant documented in this encounter [facility] 02-15-2024 Telephone encounter Note BSTOP brochure sent to pt via Scutum. Elsy Pang RN, LINDA Bariatric Sales And Marketing Assistant [facility] 02-15-2024 Miscellaneous Notes BSTOP brochure sent to pt via Scutum. Elsy Pang RN, BSN Bariatric Sales And Marketing Assistant documented in this encounter [facility] 02-08-2024 History of Presen t illness Narrative BARIATRIC SURGERY CLINIC FOLLOW UP NOTE DISTANCE HEALTH VISIT This Team Access Model visit is a virtual encounter. It required patient-provider interaction for the medical decision making as documented below. Consent was obtained to complete today's distance health visit. I have communicated my name and active licensure. The patient's identity and physical location were verified at the time of this visit. Either the patient or their legal public health representative has been informed of the risks and benefits of -- and alternatives to -- treatment through a remote evaluation and consents to proceed with the evaluation remotely. HPI: Mariia Davidson a 43 year old female for presents for medically supervised weight loss treatment of her obesity related co morbidities. This individual presents for month 5 of 6 required visits completed as a virtual telephone encounter Mariia Davidson weight calculation has decreased. She denies recent illnesses, hospitalizations, ED visits. She has obtained medical marijuana card and uploaded it into [employer]. She completed toxicology screen which was positive for MJ and benzos -- she has prescription for klonopin. Repeat labs demonstrated normalization of vitamin D and PTH as she increased vitamin D dose. Creatinine has worsened a bit.. she has known non-obstructing nephrolithiasis that are embedded into kidney. She has a urologist who she recently saw regarding this. Otherwise, she is staying well hydrated. HISTORY REVIEWED (electronic chart updated): - medical history - medications - allergies PAST MEDICAL HISTORY No date: bipolar 2 No date: Breast disorder Comment: thick breast tissues with mammogram No date: Central vein occlusion of retina No date: Chronic diarrhea No date: HTN (hypertension) No date: Hypothyroidism No date: Nephrolithiasis No date: Non-alcoholic fatty liver disease No date: Obesity : depression No date: Pre-diabetes 2012: Preeclampsia No date: Rh incompatibility No date: Secondary anovulatory infertility Social: Social History Tobacco Use Smoking status: Never Smokeless tobacco: Never Vaping Use Vaping status: Never Used Substance Use Topics Alcohol use: Not Currently Alcohol/week: 2.0 standard drinks of alcohol Types: 2 Glasses of wine per week Drug use: No Medications: Current Outpatient Medications Medication Sig cholecalciferol, Vitamin D3, (VITAMIN D3) 1,250 mcg (50,000 unit) cap capsule Take 1 capsule by mouth one time a week for 12 doses. Transition to 2,000-4,000 units of Vitamin D OTC after completing 12 weeks amLODIPine (NORVASC) 5 mg tablet Take 5 mg by mouth once daily. FENOFIBRATE MICRONIZED 145 MG TAB 145 mg once daily. metFORMIN ER (FORTAMET) 500 mg 24 hr tablet Take 1,000 mg by mouth two times a day. lurasidone (LATUDA) 120 mg tablet Take by mouth. POTASSIUM CITRATE ORAL Take 15 mEq by mouth once daily. sertraline (ZOLOFT) 100 mg tablet Take 200 mg by mouth once daily. gabapentin (NEURONTIN) 100 mg capsule Take 300 mg by mouth two times a day. clonazePAM (KLONOPIN) 2 mg tablet Take 2 mg by mouth two times a day as needed. telmisartan (MICARDIS) 40 mg tablet Take 40 mg by mouth once daily. levothyroxine 50 mcg cap Take 50 mcg by mouth daily before breakfast. colestipol HCl (COLESTIPOL ORAL) Take by mouth. No current facility-administered medications for this visit. REVIEW OF SYSTEMS General: No fatigue or fevers HEENT: Negative for frequent or significant headaches, No changes in hearing or vision, no nose bleeds or other nasal problems PAP Therapy: Not needed. GI:No nausea, vomiting, or diarrhea and No heartburn or reflux symptoms Muskuloskeletal: Negative for joint pain or swelling, back pain or muscle pain Skin: Negative for lesions, rash, and itching Psych: Negative for sleep disturbance, mood disorder and recent psychosocial stressors PHYSICAL EXAMINATION Wt 114.8 kg (253 lb) BMI 37.36 kg/m2 Ht 175.3 cm (5' 9) BMI 37.36 kg/m2 GENERAL APPEARANCE: Pleasant, interacts appropriately and in no apparent distress. Appropriately groomed, happy, smiling, and interactive SKIN: Skin of normal texture, temperature without rashes/lesions/ulcerations. LUNGS: unlabored on room air negative findings: normal respiratory rate no cough NEURO/PSYCH: Oriented to person, place, time; appropriate insight and judgement. Appropriate affect. Diagnostic Tests Reviewed for Today's Visit Most recent lab and imaging results The plan of treatment for Mariia Davidson is Further Work-up: Required monthly visits: 5 of 6 months. Patient is interested in: Sleeve Gastrectomy EGD: defer to UGI Upper GI: Esophagus: Swallowing function unremarkable. Prominent cricopharyngeus impression was noted.. No hiatal hernia is seen. No gastroesophageal reflux identified. Stomach: There did appear to be fluid present within the stomach. There is limited evaluation of the stomach to some degree. Duodenum: No evidence of ulceration. RUQ US: Fatty liver. Enlarged spleen(15.7 cm). Nephrolithiasis on the left. Possible bilateral nephrocalcinosis. Mildly dilated common duct. Prior cholecystectomy. Visualization is somewhat suboptimal due to patient build Sleep Study: Mild ALESSANDRO, does not need CPAP per pulm CXR:per pulmonary clearance EKG:per cardiac clearance H Pylori NA planned SG Labs: complete, increased creatinine (follow up with PCP) Nicotine use <12 months: NA, in process Tox: +uses MJ; + marijuana(MM card scanned in) and benzos (has rx for klonopin) Antiplatelet/anticoagulants: No Immunosuppressive therapy: No Estrogen therapy: No Evaluations Psychology: complete Nutrition: cleared Education class: ongoing Clearances: Cardiac (low; OV 8/19), Pulmonary(low; OV 6/ - does not need CPAP), and PCP Risk Calculator: VTE Risk: OR time < 3 hours = 0.16% OR time > 3 hours = 0.25% ISS score: not diabetic Adverse Event score: TBD Post-op Medications: Extended Lovenox: Not needed Actigall: NA, s/p cholecystectomy PPI: Will require ASSESSMENT/PLAN: 1. Class 2 obesity with body mass index (BMI) of 37.0 to 37.9 in adult, unspecified obesity type, unspecified whether serious comorbidity present - ICD9: 278.00, V85.37, ICD10: E66.9, Z68.37 (primary diagnosis) Weight decreasing - Behavioral intervention and - Medical nutrition therapy with dietitian - Nutrition Counseling Practice these: - Eat 3 meals daily--can use approved/recommended protein shake as 1 meal replacement (should be <200 calories, 20-30g protein, <5g added sugar) - Keep a food journal 5-7x/week (consider Erly or [employer] kaitlynn) and demonstrate meeting protein goal (60-90g protein for females, 70-105g protein for males)- Lean meats, fish, low fat dairy - cottage cheese, [place] yogurt, light yogurt, cheese, ricotta cheese, nuts, peanut butter, beans/legumes. Eat protein first at all meals. and 64oz of caffeine-free, carbonation-free fluids at least 5 days per week - engage in formal, planned exercise 5x/week for 30 minutes of cardiovascular activity OR 150+ minutes of cardiovascular activity per week - eliminate all caffeine, carbonation, alcohol and sugar-containing beverages from diet --consider sugar-free drink mixes, water, decaf coffee and tea - Separate eating and drinking by 30 minutes - Chew your food 20-30x per bite - Sip beverages slowly--no guzzling or gulping 2. Abnormal kidney function - ICD9: 593.9, ICD10: N28.9 - worsening creatinine on repeat labs. She has known non-obstructing nephrolithiasis otherwise no other kidney history. She is going to reach out to her PCP about thsi today and will update me. I will ask the labs to be faxed over to her PCP. 3. Vitamin D deficiency - ICD9: 268.9, ICD10: E55.9 - resolved along with increased PTH 4. Medical marijuana use - ICD9: V58.69, ICD10: Z79.899 - card scanned in All testing and clearances are complete. She can come back to consent with surgeon. She is going to reach out to PCP about kidney function and will update me once she hears from him. Rosalia Gaviria, TELLERS SUPERVISOR.TSO Total time in direct patient contact = 10 min. Greater than 50% of the time was spent in counseling and/or coordination of care. This note was generated using voice recognition technology and may contain grammatical errors. Medical Decision Making: Problems: Moderate: 2+ stable chronic illnesses Data: Unique test result(s) reviewed: 2 Assessment requiring an independent historian(s) Medical Decision Making Level: 4 - Moderate documented in this encounter [facility] 02-07-2024 History of Presen t illness Narrative Mariia Davidson Education Class: Patient will receive instruction regarding healthy food choices and eating behaviors identified as optimal when preparing for surgery, losing weight after surgery, and maintaining weight loss long-term. Patient will also receive instruction regarding the Bariatric Full Liquid diet following surgery and optimal post-operative high-protein supplement choices. Education class to be completed prior to surgery. Behaviors Accomplished: Visit # 5 Date: 02/07/2024 Weight: 114.8 kg (253 lb)-16 lb weight loss since initial in office encounter. Keeping journal daily Eating 3 meals/one snack Choose healthy foods Daily multivitamin No high fat/fast foods D/c'd caffeinated, carbonated beverages 24 hour diet recall Breakfast: 1/2 protein shake Lunch: 2 steak tacos with guacamole with tortilla Dinner: 2 ground beef tacos Snacks: none Fluids (liquid intake-oz): yesterday: at least 6 bottles of 17 oz bottles water Protein (grams/day): yesterday: 99 g Fluid intake (oz/day) over the last 7 days: 2 days ago: at least 6 bottles of 17 oz bottles water 3 days ago: at least 6 bottles of 17 oz bottles water 4 days ago: at least 6 bottles of 17 oz bottles water 5 days ago: at least 6 bottles of 17 oz bottles water 6 days ago:at least 6 bottles of 17 oz bottles water 7 days ago: at least 6 bottles of 17 oz bottles water Protein intake (grams/day) over the last 7 days: 2 days ago: 109 g 3 days ago: 84 g 4 days ago: 96 g 5 days ago: 139 g 6 days ago: 65 g 7 days ago: 63 g Alcohol/Caffeine/Sugar/Sweetener /Carbonation Beverages in Diet: Carbonation: none Caffeine: decaf only now Sugar: none Sweeteners: significantly reduced Alcohol: none Exercise: walking for 30-40 minutes daily on walking pad Written information provided and reviewed: As noted Preop patient currently on month #5 supervised diet and exercise. Presents with a 16 pound weight loss since initial in office encounter. She is very pleased with her weight loss and overall, her relationship with food. Over the last month she has increased her exercise-now meeting goal. She remains consistently adherent to all other preop nutrition requirements. Therefore, nutrition clearance was obtained at today's visit. Review consent diet information including: Very low calorie diet, enhanced recovery after surgery protocol and postop vitamin/mineral protocol. Of note, will require 45 mg of iron per day postop. The patient meets NIH guidelines for weight loss surgery and has been thoroughly evaluated and educated on good dietary practices. Patient is capable of following these guidelines pre-and post-surgically. From nutrition standpoint, the patient is cleared for weight loss surgery. No additional visits with nutrition are required at this time; however, pt is welcome to return as needed/desired before or after surgery. *All requirements have been met. Additional requirements may arise in course of treatment. *THIS PATIENT RECEIVED INSTRUCTIONS FOR VLCD, ERAS AND POST-OP VITAMIN SCHEDULE WITH PLAN TO CONSENT W/ SURGEON AT FUTURE APPOINTMENT-WILL RECEIVE ENSURE CLEAR BEVERAGES AT CONSENT APPOINTMENT -VLCD, ERAS, post-op vitamin schedule--via [employer] Plan: no appointment needed Total time in direct patient contact = 27 min. Greater than 50% of the time was spent in counseling and/or coordination of care. Nerissa Alva RD This note was generated using voice recognition technology and may contain grammatical errors. documented in this encounter [facility] 01-31-2024 History of Presen t illness Narrative [facility] SUR[facility] CLINIC FOLLOW UP NOTE DISTANCE HEALTH VISIT This Team Access Model visit is a virtual encounter. It required patient-provider interaction for the medical decision making as documented below. Consent was obtained to complete today's distance health visit. I have communicated my name and active licensure. The patient's identity and physical location were verified at the time of this visit. Either the patient or their legal public health representative has been informed of the risks and benefits of -- and alternatives to -- treatment through a remote evaluation and consents to proceed with the evaluation remotely. HPI: Mariia Davidson a 43 year old female for presents for medically supervised weight loss treatment of her obesity related co morbidities. This individual presents for month 5 of 6 required visits completed as a virtual telephone encounter Mariia Davidson weight calculation has decreased. She has been doing well with making healthier choices with her diet. She is feeling good with the changes that she has made in regard to meal timing and increasing protein. She is exercising regularly. She is currently ill with a fever otherwise denies further changes to medical history. HSAT showed mild ALESSANDRO; per pulmonology, she does not need a CPAP before surgery. She established with cardiology and has been cleared for surgery Reviewed results of UGI which were WNL She tells me today that she uses marijuana edibles on the weekends to help with sleep, she does not have a medical marijuana card. HISTORY REVIEWED (electronic chart updated): - medical history - medications - allergies PAST MEDICAL HISTORY No date: bipolar 2 No date: Breast disorder Comment: thick breast tissues with mammogram No date: Central vein occlusion of retina No date: Chronic diarrhea No date: HTN (hypertension) No date: Hypothyroidism No date: Nephrolithiasis No date: Non-alcoholic fatty liver disease No date: Obesity 2011,2013: depression No date: Pre-diabetes 2012: Preeclampsia No date: Rh incompatibility No date: Secondary anovulatory infertility Social: Social History Tobacco Use Smoking status: Never Smokeless tobacco: Never Vaping Use Vaping status: Never Used Substance Use Topics Alcohol use: Not Currently Alcohol/week: 2.0 standard drinks of alcohol Types: 2 Glasses of wine per week Drug use: No Medications: Current Outpatient Medications Medication Sig cholecalciferol, Vitamin D3, (VITAMIN D3) 1,250 mcg (50,000 unit) cap capsule Take 1 capsule by mouth one time a week for 12 doses. Transition to 2,000-4,000 units of Vitamin D OTC after completing 12 weeks amLODIPine (NORVASC) 5 mg tablet Take 5 mg by mouth once daily. FENOFIBRATE MICRONIZED 145 MG TAB 145 mg once daily. metFORMIN ER (FORTAMET) 500 mg 24 hr tablet Take 1,000 mg by mouth two times a day. lurasidone (LATUDA) 120 mg tablet Take by mouth. POTASSIUM CITRATE ORAL Take 15 mEq by mouth once daily. sertraline (ZOLOFT) 100 mg tablet Take 200 mg by mouth once daily. gabapentin (NEURONTIN) 100 mg capsule Take 300 mg by mouth two times a day. clonazePAM (KLONOPIN) 2 mg tablet Take 2 mg by mouth two times a day as needed. telmisartan (MICARDIS) 40 mg tablet Take 40 mg by mouth once daily. levothyroxine 50 mcg cap Take 50 mcg by mouth daily before breakfast. colestipol HCl (COLESTIPOL ORAL) Take by mouth. No current facility-administered medications for this visit. REVIEW OF SYSTEMS General: No fatigue or fevers HEENT: Negative for frequent or significant headaches, No changes in hearing or vision, no nose bleeds or other nasal problems PAP Therapy: Not needed. GI:No nausea, vomiting, or diarrhea and No heartburn or reflux symptoms Muskuloskeletal: Negative for joint pain or swelling, back pain or muscle pain Skin: Negative for lesions, rash, and itching Psych: Negative for sleep disturbance, mood disorder and recent psychosocial stressors PHYSICAL EXAMINATION Wt 113.4 kg (250 lb) BMI 36.92 kg/m2 Ht 175.3 cm (5' 9) BMI 36.92 kg/m2 GENERAL APPEARANCE: Pleasant, interacts appropriately and in no apparent distress. Appropriately groomed, happy, smiling, and interactive SKIN: Skin of normal texture, temperature without rashes/lesions/ulcerations. LUNGS: unlabored on room air negative findings: normal respiratory rate no cough NEURO/PSYCH: Oriented to person, place, time; appropriate insight and judgement. Appropriate affect. Diagnostic Tests Reviewed for Today's Visit Most recent lab and imaging results The plan of treatment for Mariia Davidson is Further Work-up: Required monthly visits: 5 of 6 months. Patient is interested in: Sleeve Gastrectomy EGD: defer to UGI Upper GI: Esophagus: Swallowing function unremarkable. Prominent cricopharyngeus impression was noted.. No hiatal hernia is seen. No gastroesophageal reflux identified. Stomach: There did appear to be fluid present within the stomach. There is limited evaluation of the stomach to some degree. Duodenum: No evidence of ulceration. RUQ US: Fatty liver. Enlarged spleen(15.7 cm). Nephrolithiasis on the left. Possible bilateral nephrocalcinosis. Mildly dilated common duct. Prior cholecystectomy. Visualization is somewhat suboptimal due to patient build Sleep Study: Mild ALESSANDRO, does not need CPAP per pulm CXR:per pulmonary clearance EKG:per cardiac clearance H Pylori NA planned SG Labs: complete, vitamin D def, increased PTH (repeating), increased creatinine (repeating) Nicotine use <12 months: NA, ordered per insurance Tox: +uses MJ; ordered Antiplatelet/anticoagulants: No Immunosuppressive therapy: No Estrogen therapy: No Evaluations Psychology: complete Nutrition: ongoing Education class: ongoing Clearances: Cardiac (low; OV 8/), Pulmonary(low; OV 12/05 - does not need CPAP), and PCP Risk Calculator: VTE Risk: OR time < 3 hours = 0.16% OR time > 3 hours = 0.25% ISS score: not diabetic Adverse Event score: TBD Post-op Medications: Extended Lovenox: Not needed Actigall: NA, s/p cholecystectomy PPI: Will require ASSESSMENT/PLAN: 1. Class 2 severe obesity with serious comorbidity and body mass index (BMI) of 39.0 to 39.9 in adult, unspecified obesity type (HCC) - ICD9: 278.01, V85.39, ICD10: E66.01, Z68.39 (primary diagnosis) Weight decreasing - Behavioral intervention and - Medical nutrition therapy with dietitian - Nutrition Counseling Practice these: - Eat 3 meals daily--can use approved/recommended protein shake as 1 meal replacement (should be <200 calories, 20-30g protein, <5g added sugar) - Keep a food journal 5-7x/week (consider [employer] or [employer] kaitlynn) and demonstrate meeting protein goal (60-90g protein for females, 70-105g protein for males)- Lean meats, fish, low fat dairy - cottage cheese, [place] yogurt, light yogurt, cheese, ricotta cheese, nuts, peanut butter, beans/legumes. Eat protein first at all meals. and 64oz of caffeine-free, carbonation-free fluids at least 5 days per week - engage in formal, planned exercise 5x/week for 30 minutes of cardiovascular activity OR 150+ minutes of cardiovascular activity per week - eliminate all caffeine, carbonation, alcohol and sugar-containing beverages from diet --consider sugar-free drink mixes, water, decaf coffee and tea - Separate eating and drinking by 30 minutes - Chew your food 20-30x per bite - Sip beverages slowly--no guzzling or gulping - TOXICOLOGY SCREEN, ROUTINE URINE - NICOTINE & METAB, UR 2. Vitamin D deficiency - ICD9: 268.9, ICD10: E55.9 - repeat vitamin D and PTH once megadose is complete - VITAMIN D 25 HYDROXY - PTH INTACT 3. Abnormal kidney function - ICD9: 593.9, ICD10: N28.9 - repeat BMP 4. Hypertension, unspecified type - ICD9: 401.9, ICD10: I10 - continue medical management - cleared by cardiology 5. Hyperlipidemia, unspecified hyperlipidemia type - ICD9: 272.4, ICD10: E78.5 - cleared by cardiology 6. ALESSANDRO (obstructive sleep apnea) - ICD9: 327.23, ICD10: G47.33 - Mild; does not need CPAP per pulmonology 7. Marijuana use - ICD9: 305.20, ICD10: F12.90 - needs to complete negative tox screen - discussed importance of avoiding MJ before and after bariatric surgery Still needs repeat labs, nicotine, and tox screen. Still needs clearance from nutrition. Follow up with ACCOUNTING PROFESSIONAL in 4-6 weeks. Rosalia Gaviria APRN.TSO Total time in direct patient contact = 13 min. Greater than 50% of the time was spent in counseling and/or coordination of care. This note was generated using voice recognition technology and may contain grammatical errors. Medical Decision Making: Problems: Moderate: 2+ stable chronic illnesses Data: Unique test result(s) reviewed: 1 Unique test(s) ordered: 2 Assessment requiring an independent historian(s) Risk: Minimal: Minimal risk from testing/treatment Medical Decision Making Level: 4 - Moderate documented in this encounter [facility] 01-30-2024 Instructions David Chang MD - 01/30/2024 8:39 AM EDT LIFESTYLE CHANGE A healthy lifestyle is the most important component of your overall treatment plan. Please give serious thought to the following areas and commit to making termination clerk changes. EAT A WHOLE FOOD, PLANT BASED DIET The nutrition your body gets is more important than the medicine you take. What matters most is the overall way you eat. We encourage you to minimize the use of animal products (which include dairy and all meats except fatty fish) and use whole, unprocessed plant foods to provide your protein, vitamins and other nutrients. We have a lot of information to share with you on this topic. This is not a diet. It is a way of life that you will keep with you. EXERCISE REGULARLY It is not important to spend hours in the gym, lifting weights and perspiring heavily. A total of 2-3 hours per week of aerobic (causing you to be moderately short of breath) exercise is sufficient to improve your health. Talk to us before you begin a new exercise program, if you have heart disease or experience shortness of breath or chest pain. REDUCE STRESS Chronic emotional and physical stress leads to disease. Ways of reducing stress include meditation, visualization, prayer, yoga and other forms of relaxation therapy. Consistency is the cuenca. Find a technique that works for you and do it every day. CULTIVATE RELATIONSHIPS Loneliness and isolation have a major negative impact on health. Seek out others who can love, care for and nurture you. Avoid hurtful relationships. MAINTAIN IDEAL BODY WEIGHT The best way to do this is to do all the things above. Our bodies naturally find the right weight if we keep moving and feed ourselves the right food. If your BMI is greater than 25, we strongly recommend a referral to a weight management program. Please speak to us or your family physician about available programs. AVOID NICOTINE IN ALL FORMS This includes all tobacco products, whether chewed, smoked, vaped, or rubbed on the skin. Smoking cessation programs, which can make use of tobacco substitutes, medications to suppress cravings and behavior management, are available. Please contact your family physician about programs in your area. documented in this encounter [facility] 01-30-2024 History of Presen t illness Narrative PRIMARY CARE PHYSICIAN: Karina Gonzalez ([place]) [address] [place] [address] REFERRING PHYSICIAN: Rosalia Gaviria NP CHIEF COMPLAINT: Preoperative cardiac risk assessment prior to bariatric surgery HISTORY OF PRESENT ILLNESS: Ms. Davidson is a 43 year old female with a history of hypertension, hypothyroidism, nonalcoholic fatty liver disease, bipolar disorder and kidney stones who was referred to cardiology clinic for preoperative cardiac risk assessment prior to bariatric surgery. In discussion with the patient, she denies any cardiac complaints. She specifically denies any symptoms of chest pain, dyspnea on exertion, orthopnea, paroxysmal nocturnal dyspnea, lower extremity edema, claudication, presyncope, syncope, or palpitations. She otherwise has been exercising regularly and has been walking on the treadmill 5 days a week at 3 miles an hour for 30 to 40 minutes at a time without limitations. She is otherwise able to climb up more than 2 flights of stairs without having to stop to catch her breath. Patient has otherwise been working with a dental appliance mechanic and has modified her diet to incorporate more protein breakfast and lunch. She is also decreased her overall portion sizes. As a result of her regular exercise and dietary modifications, she has lost 10 pounds in the last 6 weeks. Patient otherwise denies any history of atherosclerotic cardiovascular disease, congestive heart failure, prior stroke, insulin-dependent diabetes or chronic kidney disease. PAST MEDICAL HISTORY No date: bipolar 2 No date: Breast disorder Comment: thick breast tissues with mammogram No date: Central vein occlusion of retina No date: Chronic diarrhea No date: HTN (hypertension) No date: Hypothyroidism No date: Nephrolithiasis No date: Non-alcoholic fatty liver disease No date: Obesity 2011,2013: depression No date: Pre-diabetes 2011: Preeclampsia No date: Rh incompatibility No date: Secondary anovulatory infertility PAST SURGICAL HISTORY 07/02/2015: DELIVERY ONLY Comment: , low transverse : SECTION HX No date: CHOLECYSTECTOMY HX Comment: 2022 No date: LITHOTRIPSY XTRCORP SHOCK WAVE No date: SUSPENSION OF BREAST Comment: lift MEDICATIONS: cholecalciferol, Vitamin D3, (VITAMIN D3) 1,250 mcg (50,000 unit) cap capsule Take 1 capsule by mouth one time a week for 12 doses. Transition to 2,000-4,000 units of Vitamin D OTC after completing 12 weeks amLODIPine (NORVASC) 5 mg tablet Take 5 mg by mouth once daily. FENOFIBRATE MICRONIZED 145 MG TAB 145 mg once daily. metFORMIN ER (FORTAMET) 500 mg 24 hr tablet Take 1,000 mg by mouth two times a day. lurasidone (LATUDA) 120 mg tablet Take by mouth. POTASSIUM CITRATE ORAL Take 15 mEq by mouth once daily. sertraline (ZOLOFT) 100 mg tablet Take 200 mg by mouth once daily. gabapentin (NEURONTIN) 100 mg capsule Take 300 mg by mouth two times a day. clonazePAM (KLONOPIN) 2 mg tablet Take 2 mg by mouth two times a day as needed. telmisartan (MICARDIS) 40 mg tablet Take 40 mg by mouth once daily. levothyroxine 50 mcg cap Take 50 mcg by mouth daily before breakfast. colestipol HCl (COLESTIPOL ORAL) Take by mouth. ALLERGIES No Known Allergies SOCIAL HISTORY: Social History Tobacco Use Smoking status: Never Smokeless tobacco: Never Vaping Use Vaping status: Never Used Substance Use Topics Alcohol use: Not Currently Alcohol/week: 2.0 standard drinks of alcohol Types: 2 Glasses of wine per week Drug use: No FAMILY HISTORY Problem Relation Age of Onset None Mother Hypertension Father Cancer Maternal Grandmother REVIEW OF SYSTEMS: GENERAL: Negative for: Weight loss or gain, Fever, Chills, or Night sweats RESPIRATORY: Negative for: Cough, Blood in Sputum, Shortness of breath, Wheezing CARDIAC: Negative history of chest pain on exertion, dyspnea on exertion, orthopnea, paroxysmal nocturnal dyspnea, lower extremity edema, presyncope, syncope, or palpitations PHYSICAL EXAMINATION: BP 130/82 Pulse 110 Ht 5' 9 (1.75m) Wt 258 lb (117.0kg) SpO2 97% LMP 10/09/2021 BMI 38.08 kg/(m^2). GENERAL: Obese, in no acute distress. LUNGS: Clear to auscultation bilaterally, no rales, wheezing, or rhonchi. HEART: Regular rate and rhythm; normal S1/S2; no murmurs, gallops, or rubs EXTREMETIES: No peripheral edema. Grade 2/4 distal pulses bilaterally. NEURO: Grossly nonfocal CARDIAC TESTING: EKG: EKG, 01/30/2024: Sinus tachycardia at 105 bpm. Otherwise normal EKG I have personally reviewed the Electrocardiogram and Laboratory Testing. ASSESSMENT: Ms. Davidson is a 43 year old female with a history of hypertension, hypothyroidism, nonalcoholic fatty liver disease, bipolar disorder and kidney stones who was referred to cardiology clinic for preoperative cardiac risk assessment prior to bariatric surgery. PLAN AND RECOMMENDATIONS: Pre-operative cardiac assessment: Ms. Davidson does not have any high-risk features of unstable angina, decompensated heart failure, severe valve disease, or malignant arrhythmias. Her RCRI score is 0. In addition, she engages in at least 4 METS of physical activity without cardiac limitations. As such, no further cardiac evaluation is necessary at this time and she would be at overall low risk of cardiac complications from an anticipated intermediate risk surgical procedure. There is otherwise no indication for perioperative beta-blockade as this is most beneficial in high risk patients undergoing high risk surgery. 2. Hypertension: Patient's blood pressure is well controlled on her current antihypertensive regimen. 3. Obesity: Patient has been exercising regularly and has modified her diet to incorporate more protein and decrease her overall portion sizes. As a result, she has lost 10 pounds in the last month and a half. She is otherwise undergoing workup for bariatric surgery. David Chang MD Please Note: The time of this note does not reflect the time I saw this patient today, but the time of this documentation. Also, this note has been created using [employer], a speech recognition software program, and may contain errors including punctuation, grammar, spelling, gender, and inappropriate words or phrases that pertain to the system. documented in this encounter [facility] 01-30-2024 Nurse Note Patient denies any cardiac complaints or symptoms. Jessy Brewer LPN [facility] 01-30-2024 Nurse Note Patient denies any cardiac complaints or symptoms. Jessy Brewer LPN documented in this encounter [facility] 01-20-2024 History of Presen t illness Narrative Radiology Service Progress Note PATIENT NAME: Mariia Davidson DATE OF SERVICE: January 20, 2024 TIME: 8:56 AM PATIENT IDENTITY VERIFICATION COMPLETED USING TWO (2) IDENTIFIERS: Name and Date of confirmed by patient verbally. FALL SCREENING: Has the patient had 2 falls in the last year or 1 fall with injury or currently using an Ambulatory Assistive Device (Walker, Cane, Wheelchair, Crutches, etc.)? No PATIENT GENDER DATA: Female. status: : No status: NO. PATIENT RELEVANT IMPLANT DATA REVIEWED: Yes PATIENT PRESENTS WITH AN IMPLANTABLE OR ATTACHED ACCOUNT UNDERWRITER: No RADIOLOGY DEPARTMENT: General X-ray: Exam(s) Completed: GI/ Procedure(s): Upper GI with barium contrast PERIPHERAL IV DATA: Not applicable SIGNED BY: JOSE DE JESUS Reyes) January 20, 2024 8:56 AM documented in this encounter [facility] 01-20-2024 Note HNO ID: [id number] Author: GERI ZARAGOZA RT(R) Service: Radiology Author Type: Technologist Type: Progress Notes Filed: 01/20/2024 08:56 Note Text: Radiology Service Progress Note PATIENT NAME: Mariia Davidson DATE OF SERVICE: January 20, 2024 TIME: 8:56 AM PATIENT IDENTITY VERIFICATION COMPLETED USING TWO (2) IDENTIFIERS: Name and Date of confirmed by patient verbally. FALL SCREENING: Has the patient had 2 falls in the last year or 1 fall with injury or currently using an Ambulatory Assistive Device (Walker, Cane, Wheelchair, Crutches, etc.)? No PATIENT GENDER DATA: Female. status: : No status: NO. PATIENT RELEVANT IMPLANT DATA REVIEWED: Yes PATIENT PRESENTS WITH AN IMPLANTABLE OR ATTACHED ACCOUNT UNDERWRITER: No RADIOLOGY DEPARTMENT: General X-ray: Exam(s) Completed: GI/ Procedure(s): Upper GI with barium contrast PERIPHERAL IV DATA: Not applicable SIGNED BY: JOSE DE JESUS Reyes) January 20, 2024 8:56 AM [facility] 01-17-2024 Note HNO ID: [id number] Author: ?, ?, ? Service: ? Author Type: ? Type: Progress Notes Filed: 01/17/2024 13:47 Note Text: Sleep Study Check-In Documentation Date: January 17, 2024 Name: Mariia Davidson Comments: HST was returned in working order with all sleep questionnaires Catherine Stroud [facility] 01-17-2024 History of Presen t illness Narrative Sleep Study Check-In Documentation Date: January 17, 2024 Name: Mariia Davidson Comments: HST was returned in working order with all sleep questionnaires Catherine Stroud Lvm and sent mc Nomad # [id number] , date shipped out 01-11-24 Fed Ex only Tracking mailout: [id number] Tracking return: [id number] 2024 January 04, 2024 Standing PSG Orders signed in the last 90 days None Future PSG Orders signed in the last 90 days Ordered Auth. provider HOME SLEEP APNEA TEST (HSAT) [[id number]] 12/06/23 Frantz Orellana MD Assoc. diagnoses: Primary hypertension [I10], Class 2 severe obesity due to excess calories with serious comorbidity and body mass index (BMI) of 36.0 to 36.9 in adult ([facility]) [E66.01, Z68.36] Q: Indications: A: Obstructive sleep apnea Q: STOP-BANG conditions - Select All That Apply: A: BMI > 35 kg/m2 A2: high blood PRESSURE A3: NECK circumference (male >43 cm/17 in; female > 41 cm/16 in) Q: Current use of supplemental oxygen during sleep period?: A: No Q: Add supplemental oxygen if needed per sleep lab policy?: A: Yes All Prior Sleep Studies (past 365 days) 12/06/2023 09:40 Sleep Studies HOME SLEEP APNEA TEST (HSAT) HOME SLEEP APNEA TEST (HSAT) Order Status: Ordered, Future BMI Readings from Last 2 Encounters: 01/04/24 : 38.40 kg/m 12/09/23 : 39.72 kg/m PAST MEDICAL HISTORY Diagnosis Date bipolar 2 Breast disorder thick breast tissues with mammogram Central vein occlusion of retina Chronic diarrhea HTN (hypertension) Hypothyroidism Nephrolithiasis Non-alcoholic fatty liver disease Obesity depression 2011,2013 Pre-diabetes Preeclampsia 2011 Rh incompatibility Secondary anovulatory infertility The medical record was reviewed to determine if the proposed sleep study conforms to the AASM Practice Parameters for the Indications for Polysomnography and Related Procedures, or if the sleep study is indicated for other reasons. Indications for study: ALESSANDRO suspected without comorbid medical or sleep disorders Sleep study to be performed: Home Sleep Apnea Test (HSAT) Special instructions: None-follow laboratory protocol Patt Jackie - Sleep Medicine Staff Note: I have read the above protocol, edited as needed, and agree to the plan. Lakshmi Woodruff III, PhD 5:19 PM, 01/05/2024 January 04, 2024 An order has been received for Home Sleep Apnea Test (HSAT) from Dr. Orellana, Frantz Ramirez MD , a B. [facility] Staff. Visit prep complete. Comments :No The sleep study is scheduled for 01/12. Insurance: Payor: CIGNA / Plan: CIGNA OAP / Product Type: Open Access / Payer/Plan Subscr Sex Relation Sub. Ins. ID Effective Group Num 1. CIGNA - CIGNA* MARIIA DAVIDSON 1980 Female Self [id number] [birth year] [id number] [id number] Amy Talbot documented in this encounter [facility] 01-17-2024 Note HNO ID: [id number] Author: ?, ?, ? Service: ? Author Type: ? Type: Progress Notes Filed: 01/17/2024 13:47 Note Text: Lvm and sent [facility] 01-12-2024 Note HNO ID: [id number] Author: NEENA PIKE PSYD Service: ? Author Type: Psychologist Type: Progress Notes Filed: 01/12/2024 14:23 Note Text: [facility] Follow-Up Visit [facility] Progress Note January 12, 2024 CPT Code: 46983 Psychotherapy 16-37 minutes Time: 32 minutes This is a virtual visit using Scutum video visit. It required patient-provider interaction for the medical decision making as documented below. I have communicated my name and active licensure. The patient's identity and physical location were verified at the time of this visit. Either the patient or their legal public health representative has been informed of the risks and benefits of -- and alternatives to -- treatment through a remote evaluation and consents to proceed with the evaluation remotely. Summary of Session: The patient stated she was following the program very well. She said she had met all nutrition requirements at her last appointment except exercise. She stated she is now walking and doing wall pilates to meet the requirement and is feeling hopeful she will clear at her next nutrition appointment. She said she had a pivotal nutrition appointment a few weeks ago that helped her with figuring out how to eat properly, she said putting her protein early in the day had helped her feel full longer and have more energy which had reduced her evening snacking. She said she has lost 9 pounds to date. Assessed the patients current mental health treatment, she stated she is continuing all her medications including Latuda, Zoloft, Clonazepam, and Gabapentin. She said she is also seeing her therapist weekly. She acknowledged comfort in talking to her team if she noticed in changes in her mood or mental health related symptoms. 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 Records were received from [facility] prior to the patient starting the program, verifying treatment. Assessed the patient's perceived readiness for surgery, and the patient expressed confidence in the preparedness for the procedure. Addressed post operative expectations and encouraged the patient to reach out to their team to address any concerns that may arise during their recovery. Patient mood is: calm. Affect is: Appropriate. Patient Data Binge Eating Scale (BES) 09/16/2023 09/26/2023 01/04/2024 Eating Habits Checklist Total Score 28 26 12 <18 = minimal binge eating, 18-26 = moderate binge eating, >27 = severe binge eating Generalized Anxiety Disorder Scale (DORETHA-7) 09/16/2023 09/26/2023 01/04/2024 DORETHA - 7 SCORES Score 5 4 5 (0-4) minimal anxiety, (5-9) mild anxiety, (10-14) moderate anxiety, (15-21) severe anxiety Patient Health Questionnaire (PHQ-9) 09/16/2023 09/26/2023 01/04/2024 PHQ-9 Score 2 4 1 (0-4) minimal depression, (5-9) mild depression, (10-14) moderate depression, (15-19) moderately severe depression, (20-27) severe depression Diagnosis: No diagnosis found. Current Medications: Current Outpatient Medications Medication Sig cholecalciferol, Vitamin D3, (VITAMIN D3) 1,250 mcg (50,000 unit) cap capsule Take 1 capsule by mouth one time a week for 12 doses. Transition to 2,000-4,000 units of Vitamin D OTC after completing 12 weeks amLODIPine (NORVASC) 5 mg tablet Take 5 mg by mouth once daily. FENOFIBRATE MICRONIZED 145 MG TAB 145 mg once daily. metFORMIN ER (FORTAMET) 500 mg 24 hr tablet Take 500 mg by mouth two times a day. lurasidone (LATUDA) 120 mg tablet Take by mouth. POTASSIUM CITRATE ORAL Take 15 mEq by mouth once daily. sertraline (ZOLOFT) 100 mg tablet Take 200 mg by mouth once daily. gabapentin (NEURONTIN) 100 mg capsule Take 200 mg by mouth three times a day. clonazePAM (KLONOPIN) 2 mg tablet Take 2 mg by mouth two times a day as needed. telmisartan (MICARDIS) 40 mg tablet Take 40 mg by mouth once daily. levothyroxine 50 mcg cap Take 50 mcg by mouth daily before breakfast. colestipol HCl (COLESTIPOL ORAL) Take by mouth. No current facility-administered medications for this visit. Treatment Modality: Bariatric Evaluation Follow Up Plan/Recommendations: The patient was advised she was cleared for surgery, she was further advised she was welcome to make additional appointments with bariatric psychology as needed. Follow Up: ROBERT Pike PSYD Clinical Psychologist Bariatrics [facility] 01-12-2024 History of Presen t illness Narrative [facility] Follow-Up Visit [facility] Progress Note January 12, 2024 CPT Code: 04841 Psychotherapy 16-37 minutes Time: 32 minutes This is a virtual visit using Scutum video visit. It required patient-provider interaction for the medical decision making as documented below. I have communicated my name and active licensure. The patient's identity and physical location were verified at the time of this visit. Either the patient or their legal public health representative has been informed of the risks and benefits of -- and alternatives to -- treatment through a remote evaluation and consents to proceed with the evaluation remotely. Summary of Session: The patient stated she was following the program very well. She said she had met all nutrition requirements at her last appointment except exercise. She stated she is now walking and doing wall pilates to meet the requirement and is feeling hopeful she will clear at her next nutrition appointment. She said she had a pivotal nutrition appointment a few weeks ago that helped her with figuring out how to eat properly, she said putting her protein early in the day had helped her feel full longer and have more energy which had reduced her evening snacking. She said she has lost 9 pounds to date. Assessed the patients current mental health treatment, she stated she is continuing all her medications including Latuda, Zoloft, Clonazepam, and Gabapentin. She said she is also seeing her therapist weekly. She acknowledged comfort in talking to her team if she noticed in changes in her mood or mental health related symptoms. 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 Records were received from [facility] prior to the patient starting the program, verifying treatment. Assessed the patient's perceived readiness for surgery, and the patient expressed confidence in the preparedness for the procedure. Addressed post operative expectations and encouraged the patient to reach out to their team to address any concerns that may arise during their recovery. Patient mood is: calm. Affect is: Appropriate. Patient Data Binge Eating Scale (BES) 09/16/2023 09/26/2023 01/04/2024 Eating Habits Checklist Total Score 28 26 12 <18 = minimal binge eating, 18-26 = moderate binge eating, >27 = severe binge eating Generalized Anxiety Disorder Scale (DORETHA-7) 09/16/2023 09/26/2023 01/04/2024 DORETHA - 7 SCORES Score 5 4 5 (0-4) minimal anxiety, (5-9) mild anxiety, (10-14) moderate anxiety, (15-21) severe anxiety Patient Health Questionnaire (PHQ-9) 09/16/2023 09/26/2023 01/04/2024 PHQ-9 Score 2 4 1 (0-4) minimal depression, (5-9) mild depression, (10-14) moderate depression, (15-19) moderately severe depression, (20-27) severe depression Diagnosis: No diagnosis found. Current Medications: Current Outpatient Medications Medication Sig cholecalciferol, Vitamin D3, (VITAMIN D3) 1,250 mcg (50,000 unit) cap capsule Take 1 capsule by mouth one time a week for 12 doses. Transition to 2,000-4,000 units of Vitamin D OTC after completing 12 weeks amLODIPine (NORVASC) 5 mg tablet Take 5 mg by mouth once daily. FENOFIBRATE MICRONIZED 145 MG TAB 145 mg once daily. metFORMIN ER (FORTAMET) 500 mg 24 hr tablet Take 500 mg by mouth two times a day. lurasidone (LATUDA) 120 mg tablet Take by mouth. POTASSIUM CITRATE ORAL Take 15 mEq by mouth once daily. sertraline (ZOLOFT) 100 mg tablet Take 200 mg by mouth once daily. gabapentin (NEURONTIN) 100 mg capsule Take 200 mg by mouth three times a day. clonazePAM (KLONOPIN) 2 mg tablet Take 2 mg by mouth two times a day as needed. telmisartan (MICARDIS) 40 mg tablet Take 40 mg by mouth once daily. levothyroxine 50 mcg cap Take 50 mcg by mouth daily before breakfast. colestipol HCl (COLESTIPOL ORAL) Take by mouth. No current facility-administered medications for this visit. Treatment Modality: Bariatric Evaluation Follow Up Plan/Recommendations: The patient was advised she was cleared for surgery, she was further advised she was welcome to make additional appointments with bariatric psychology as needed. Follow Up: ROBERT Pike PSYD Clinical Psychologist Bariatrics documented in this encounter [facility] 01-11-2024 Note HNO ID: [id number] Author: ?, ?, ? Service: ? Author Type: ? Type: Progress Notes Filed: 01/17/2024 13:47 Note Text: Nomad # [id number] , date shipped out 01-11-24 Fed Ex only Tracking mailout: [id number] Tracking return: [id number] [facility] 01-04-2024 Note HNO ID: [id number] Author: LAKSHMI WOODRUFF III, PhD Service: ? Author Type: Physician Type: Progress Notes Filed: 01/17/2024 13:47 Note Text: January 04, 2024 Standing PSG Orders signed in the last 90 days None Future PSG Orders signed in the last 90 days Ordered Auth. provider HOME SLEEP APNEA TEST (HSAT) [[id number]] 12/06/23 Frantz Orellana MD Assoc. diagnoses: Primary hypertension [I10], Class 2 severe obesity due to excess calories with serious comorbidity and body mass index (BMI) of 36.0 to 36.9 in adult ([facility]) [E66.01, Z68.36] Q: Indications: A: Obstructive sleep apnea Q: STOP-BANG conditions - Select All That Apply: A: BMI > 35 kg/m2 A2: high blood PRESSURE A3: NECK circumference (male >43 cm/17 in; female > 41 cm/16 in) Q: Current use of supplemental oxygen during sleep period?: A: No Q: Add supplemental oxygen if needed per sleep lab policy?: A: Yes All Prior Sleep Studies (past 365 days) 12/06/2023 09:40 Sleep Studies HOME SLEEP APNEA TEST (HSAT) HOME SLEEP APNEA TEST (HSAT) Order Status: Ordered, Future BMI Readings from Last 2 Encounters: 01/04/24 : 38.40 kg/m? 12/09/23 : 39.72 kg/m? PAST MEDICAL HISTORY Diagnosis Date bipolar 2 Breast disorder thick breast tissues with mammogram Central vein occlusion of retina Chronic diarrhea HTN (hypertension) Hypothyroidism Nephrolithiasis Non-alcoholic fatty liver disease Obesity depression 2011,2013 Pre-diabetes Preeclampsia 2011 Rh incompatibility Secondary anovulatory infertility The medical record was reviewed to determine if the proposed sleep study conforms to the AASM Practice Parameters for the Indications for Polysomnography and Related Procedures, or if the sleep study is indicated for other reasons. Indications for study: ALESSANDRO suspected without comorbid medical or sleep disorders Sleep study to be performed: Home Sleep Apnea Test (HSAT) Special instructions: None-follow laboratory protocol Patt Mejia - Sleep Medicine Staff Note: I have read the above protocol, edited as needed, and agree to the plan. Lakshmi Woodruff III, PhD 5:19 PM, 01/05/2024 [facility] 01-04-2024 Note HNO ID: [id number] Author: ?, ?, ? Service: ? Author Type: ? Type: Progress Notes Filed: 01/17/2024 13:47 Note Text: January 04, 2024 An order has been received for Home Sleep Apnea Test (HSAT) from Dr. Orellana, Frantz Ramirez MD , a B. [facility] Staff. Visit prep complete. Comments :No The sleep study is scheduled for 01/12. Insurance: Payor: [email or web address] / Plan: CIGNA OAP / Product Type: Open Access / Payer/Plan Subscr Sex Relation Sub. Ins. ID Effective Group Num 1. CIGNA - CIGNA* MARIIA DAVIDSON 1980 Female Self [id number] [birth year] [id number] [id number] Amy Talbot [facility] 01-04-2024 History of Presen t illness Narrative Mariia Davidson--Visit conducted via Active Endpoints (audio and visual) d/t COVID 19 I have communicated my name and active licensure. The patient's identity and physical location were verified at the time of this visit. Either the patient or their legal public health representative has been informed of the risks and benefits of -- and alternatives to -- treatment through a remote evaluation and consents to proceed with the evaluation remotely. Education Class: Patient will receive instruction regarding healthy food choices and eating behaviors identified as optimal when preparing for surgery, losing weight after surgery, and maintaining weight loss long-term. Patient will also receive instruction regarding the Bariatric Full Liquid diet following surgery and optimal post-operative high-protein supplement choices. Education class to be completed prior to surgery. Behaviors Accomplished: Visit # 4 Date: 01/04/2024 Weight: 117.9 kg (260 lb)-reported 9 lb weight loss since initial in office encounter. Keeping journal daily Eating 3 meals/one snack Choose healthy foods Daily multivitamin No high fat/fast foods D/c'd caffeinated, carbonated beverages 24 hour diet recall *on vacation Breakfast: protein shake, decaf coffee, oatmilk Lunch: 2 pieces mushroom pizza Dinner: halibut/rice Snacks: none Fluids (liquid intake-oz): yesterday: at least 6 bottles of 17 oz bottles water Protein (grams/day): yesterday: ~ 60 g Fluid intake (oz/day) over the last 7 days: 2 days ago: at least 6 bottles of 17 oz bottles water 3 days ago: at least 6 bottles of 17 oz bottles water 4 days ago: at least 6 bottles of 17 oz bottles water 5 days ago: at least 6 bottles of 17 oz bottles water 6 days ago:at least 6 bottles of 17 oz bottles water 7 days ago: at least 6 bottles of 17 oz bottles water Protein intake (grams/day) over the last 7 days: 2 days ago: -- 3 days ago: -- 4 days ago: 86 g 5 days ago: 66 g 6 days ago: 70 g 7 days ago: 69 g Alcohol/Caffeine/Sugar/Sweetener /Carbonation Beverages in Diet: Carbonation: none Caffeine: decaf only now Sugar: none Sweeteners: significantly reduced Alcohol: none Exercise: walking around neighborhood for 45 minutes for 2-3 days/week. Written information provided and reviewed: As noted Preop patient currently in month #4 of supervised diet and exercise. Presents with a reported 9 pound weight loss since initial in office encounter. Over the last month, she has been maintaining a food journal consistently and is meeting protein and fluid goals. She has been working on eating small, frequent meals throughout the day and she has noticed an improvement in her appetite and portion sizes. She has also been able to eliminate caffeine from her diet due to an increase in energy level with her dietary changes. She has been able to reduce eating out to once per week. We discussed the need to increase exercise, as tolerated, with a goal of 150 minutes/week. Goals formal exercise 5-7x/week as tolerated, goal of 30 minutes OR 150 minutes of activity per week The patient meets NIH guidelines for weight loss surgery and has been thoroughly evaluated and educated on good dietary practices. Patient is capable of following these guidelines pre-and post-surgically. From nutrition standpoint, the has partially met nutrition clearance and will need to demonstrate increasing exercise, as tolerated with a goal of 150 minutes/week to receive nutrition clearance. Plan: Follow up with RD in 1 month in office Total time in direct patient contact = 16 min. Greater than 50% of the time was spent in counseling and/or coordination of care. Nerissa Alva RD This note was generated using voice recognition technology and may contain grammatical errors. documented in this encounter [facility] 12-09-2023 History of Presen t illness Narrative Mariia Davidson--Visit conducted via Active Endpoints (audio and visual) d/t COVID 19 Education Class: Patient will receive instruction regarding healthy food choices and eating behaviors identified as optimal when preparing for surgery, losing weight after surgery, and maintaining weight loss long-term. Patient will also receive instruction regarding the Bariatric Full Liquid diet following surgery and optimal post-operative high-protein supplement choices. Education class to be completed prior to surgery. Behaviors Accomplished: Visit # 3 Date: 12/09/2023 Weight: 122 kg (269 lb)-demonstrates weight maintenance since initial in office encounter. Of note, pt reports that her reported weight on 10/24/23 was an estimate. Keeping journal daily Daily multivitamin Updated weight 24 hour diet recall Breakfast: 2 decaf espressos, oatmilk, iced green tea (7:30AM) Lunch: chicken lorrie (12PM) Dinner: 2 hotdogs with 2 buns (4PM) Snacks: breakstones cottage cheese doubles (11AM), peanut butter & jelly, 6 steak tacos with tomato cheese (7:30PM)/lettuce, guacamole/chips (7:30PM) Fluids (liquid intake-oz): yesterday: 64+ oz/day Protein (grams/day): yesterday: ~ 92 g Alcohol/Caffeine/Sugar/Sweetener /Carbonation Beverages in Diet: Carbonation: none Caffeine: starbucks espresso (1 day) + 1 diet green tea daily Sugar: none Sweeteners: gatorade zero all day Alcohol: none Exercise: walking around neighborhood for 45 minutes for 2 days/week. Written information provided and reviewed: As noted Preop patient currently in month #3 of supervised diet and exercise. She requested that her RD appointment be moved up to today due to having multiple questions regarding nutrition clearance in her diet. She is doing well with taking a multivitamin daily and starting a formal exercise routine. She is also maintaining a food journal consistently, but is struggling to calculate protein intake of certain meals. Her is a saute chef and she is unsure of how to calculate the nutrition content of these meals. Furthermore, she expressed concerns over her diet-portion sizes are large at dinner, followed by snacks. Upon review of 24-hour diet recall, suggested increasing dietary protein intake earlier in the day and to consider eating 5-6 small meals throughout the course of the day. Regarding her concern of calculating nutrition content of meals-provided suggestions including downloading the [employer] [email or web address]. She is drinking caffeine as noted above, but is working on switching to decaf beverages. Furthermore, she drinks Gatorade 0 all day, every day to meet her fluid goal. Recommended cirkul water bottle. She reports eating out 3 times per week, but is aware that she must reduce this to once per week. Goals aim for 3 meals or 5-6 small meals per day with a protein source - can use 1 protein shake as 1 meal replacment eliminate caffeine containing beverages from diet formal exercise 5-7x/week as tolerated, goal of 30 minutes OR 150 minutes of activity per week journal daily and bring to all appointments-meet protein and fluid goals daily---60-90 g/day and 64 oz/day limit eating out to once/week reduce intake of sweeteners in beverages The patient meets NIH guidelines for weight loss surgery and has been thoroughly evaluated and educated on good dietary practices. Patient is capable of following these guidelines pre-and post-surgically. From nutrition standpoint, the has partially met nutrition clearance and will need to demonstrate eliminating caffeine containing beverages from diet, reduce intake of sweeteners, increase exercise, as tolerated with a goal of 150 minutes/week, limit eating out to 3x/week and meet protein/fluid goals 5 days/week to receive nutrition clearance. Plan: as scheduled Total time in direct patient contact = 37 min. Greater than 50% of the time was spent in counseling and/or coordination of care. Nerissa Alva RD This note was generated using voice recognition technology and may contain grammatical errors. documented in this encounter [facility] 12-09-2023 Nurse Note LMTCB @8:06 am [facility] 12-09-2023 Nurse Note LMTCB @8:06 am documented in this encounter [facility] 12-07-2023 History of Presen t illness Narrative BARIATRIC SURGERY NEW PATIENT CONSULTATION HISTORY AND PHYSICAL Date: December 07, 2023 Time: 3:14 PM Mariia Davidson is a 42 year old year old female with obesity (Body mass index is 39.84 kg/m .), HTN (amlodipine, telmisartan), HLD (fenofibrate), nephrolithiasis (s/p multiple lithotripsies), NAFLD, Bipolar 2 (klonopin, latuda, zoloft), hypothyroidism (synthroid), pre-diabetes (A1c 5.4), chronic diarrhea (colestid) who presents to the clinic today for consideration of bariatric surgery. This patient has struggled with weight related concerns for most of their life - including in childhood and adolescent years. They have attempted weight loss with diet and exercise programs without retirement success. They attribute weight gain to having gone through . The heaviest adult weight they can recall was 269 pounds and the healthiest adult weight they can recall was 158 pounds. Her weight today is 269 pounds. She believes that she gained 40 pounds within the last year. She tried GLP-1 for 8 months and gained 15 pounds during this period. Per ACCOUNTING PROFESSIONAL note: She has hypertension, currently taking 2 antihypertensives. She also has hyperlipidemia, taking fenofibrate. She denies further cardiac issues such as CHF, CAD, arrhythmias. She has a history of numerous episodoes of nephrolithiasis, has underwent multiple lithotripsies. She has bipolar 2 disorder, currently well-managed with medication, counselor, and psychiatrist. Denies acid reflux symptoms, heartburn, dysphagia. She does struggle with chronic constipation ever since having lap cholecystectomy. She takes Colestid which manages her symptoms well. Denies frequent use of NSAIDs Denies history of DVT/PE, diabetes, asthma, COPD. Denies tobacco/nicotine use, exposure to secondhand smoke, alcohol use, and illicit drug use. Surgical history significant for x 3, lap cholecystectomy, and lithotripsy, breast lift (11/03), planned breast augmentation in February of 2024 PAST MEDICAL HISTORY Diagnosis Date bipolar 2 Breast disorder thick breast tissues with mammogram Central vein occlusion of retina Chronic diarrhea HTN (hypertension) Hypothyroidism Nephrolithiasis Non-alcoholic fatty liver disease Obesity depression 2011,2013 Pre-diabetes Preeclampsia 2011 Rh incompatibility Secondary anovulatory infertility PAST SURGICAL HISTORY Procedure Laterality Date DELIVERY ONLY 07/02/2015 , low transverse SECTION HX 2011,2012 CHOLECYSTECTOMY HX 2022 LITHOTRIPSY XTRCORP SHOCK WAVE SUSPENSION OF BREAST lift FAMILY HISTORY Problem Relation Age of Onset None Mother Hypertension Father Cancer Maternal Grandmother Social History Tobacco Use Smoking status: Never Smokeless tobacco: Never Vaping Use Vaping Use: Never used Substance Use Topics Alcohol use: Not Currently Alcohol/week: 2.0 standard drinks of alcohol Types: 2 Glasses of wine per week Drug use: No Current Outpatient Medications Medication Sig amLODIPine (NORVASC) 5 mg tablet Take 5 mg by mouth once daily. FENOFIBRATE MICRONIZED 145 MG TAB 145 mg once daily. metFORMIN ER (FORTAMET) 500 mg 24 hr tablet Take 500 mg by mouth two times a day. lurasidone (LATUDA) 120 mg tablet Take by mouth. POTASSIUM CITRATE ORAL Take 15 mEq by mouth once daily. sertraline (ZOLOFT) 100 mg tablet Take 200 mg by mouth once daily. gabapentin (NEURONTIN) 100 mg capsule Take 200 mg by mouth three times a day. clonazePAM (KLONOPIN) 2 mg tablet Take 2 mg by mouth two times a day as needed. telmisartan (MICARDIS) 40 mg tablet Take 40 mg by mouth once daily. levothyroxine 50 mcg cap Take 50 mcg by mouth daily before breakfast. colestipol HCl (COLESTIPOL ORAL) Take by mouth. No current facility-administered medications for this visit. ALLERGIES No Known Allergies Review of Systems Constitutional: Negative for chills, diaphoresis, fever and malaise/fatigue. HENT: Negative for congestion, hearing loss, nosebleeds, sinus pain, sore throat and tinnitus. Eyes: Negative for blurred vision, double vision, pain and redness. Respiratory: Negative for cough, hemoptysis, sputum production, shortness of breath and wheezing. Cardiovascular: Negative for chest pain, palpitations, orthopnea, leg swelling and PND. Gastrointestinal: Positive for diarrhea. Negative for abdominal pain, blood in stool, constipation, heartburn, nausea and vomiting. Genitourinary: Negative for dysuria, frequency, hematuria and urgency. Musculoskeletal: Negative for back pain, falls, joint pain, myalgias and neck pain. Skin: Negative for itching and rash. Neurological: Negative for dizziness, speech change, focal weakness, seizures, loss of consciousness, weakness and headaches. Endo/Heme/Allergies: Does not bruise/bleed easily. Psychiatric/Behavioral: Positive for depression. Negative for hallucinations, memory loss, substance abuse and suicidal ideas. The patient is nervous/anxious. The patient does not have insomnia. Physical Exam Vitals reviewed. Constitutional: Appearance: Normal appearance. She is obese. HENT: Head: Normocephalic and atraumatic. Nose: Nose normal. Eyes: General: No scleral icterus. Extraocular Movements: Extraocular movements intact. Conjunctiva/sclera: Conjunctivae normal. Pupils: Pupils are equal, round, and reactive to light. Cardiovascular: Rate and Rhythm: Normal rate. Pulmonary: Effort: Pulmonary effort is normal. Skin: General: Skin is warm and dry. Coloration: Skin is not jaundiced or pale. Neurological: Mental Status: She is alert and oriented to person, place, and time. Psychiatric: Behavior: Behavior normal. Required monthly visits: 3 of 6 months. Patient is interested in: Sleeve Gastrectomy EGD: defer to UGI Upper GI: ordered today RUQ US: Fatty liver. Enlarged spleen(15.7 cm). Nephrolithiasis on the left. Possible bilateral nephrocalcinosis. Mildly dilated common duct. Prior cholecystectomy. Visualization is somewhat suboptimal due to patient build Sleep Study: Referral to pulmonology - needs HSAT - plans for 12/14/23 CXR:per pulmonary clearance EKG:per cardiac clearance H Pylori pending Labs:pending Nicotine use <12 months: NA, ordered per insurance Tox: ordered Antiplatelet/anticoagulants: No Immunosuppressive therapy: No Estrogen therapy: No Evaluations Psychology: ongoing Nutrition: ongoing Education class: ongoing Clearances: Cardiac (01/29), Pulmonary(low; OV 12/05 - still needs HSAT), and PCP Risk Calculator: VTE Risk: OR time < 3 hours = 0.16% OR time > 3 hours = 0.25% ISS score: not diabetic Adverse Event score: TBD Post-op Medications: Extended Lovenox: Not needed Actigall: NA, s/p cholecystectomy PPI: Will require Plan IMPRESSION: Mariia Davidson is a 42 year old year old female who presents for consideration of bariatric surgery (Body mass index is 39.84 kg/m .). She does meet the criteria for a surgical weight loss procedure according to NIH guidelines. The plan of treatment for Mariia is to continue with the consultations and tests ordered today in hopes of qualifying for pre-operative clearance for bariatric surgery. She is interested in: Sleeve gastrectomy ASSESSMENT/PLAN: 1. Class 2 severe obesity with serious comorbidity and body mass index (BMI) of 39.0 to 39.9 in adult, unspecified obesity type (HCC) - ICD9: 278.01, V85.39, ICD10: E66.01, Z68.39 (primary diagnosis) - Today we discussed the bariatric surgical options available to them. We discussed the risks and benefits associated with both the sleeve gastrectomy and danny-en-y gastric bypass. At this time they are open to either procedure, but is most interested in the sleeve gastrectomy. We discussed the possible risks/complications associated with sleeve gastrectomy - specifically the risk of heartburn which may be temporary versus chronic. They will complete all required workup and then follow up with me in clinic for formal consenting. - Must maintain her current weight of 269 pounds or lose weight during the program. - XR UPPER GI ROUTINE DOUBLE CONTRAST/AIR 2. Hypertension, unspecified type - ICD9: 401.9, ICD10: I10 - Continue current medical management 3. Hyperlipidemia, unspecified hyperlipidemia type - ICD9: 272.4, ICD10: E78.5 - Continue current medical management 4. Bipolar 2 disorder (HCC) - ICD9: 296.89, ICD10: F31.81 - Continue current medical management 5. Hypothyroidism, unspecified type - ICD9: 244.9, ICD10: E03.9 - Continue current medical management 6. Chronic diarrhea - ICD9: 787.91, ICD10: K52.9 - Continue current medical management 7. NAFLD (nonalcoholic fatty liver disease) - ICD9: 571.8, ICD10: K76.0 - Continue current lifestyle and dietary changes 8. Prediabetes - ICD9: 790.29, ICD10: R73.03 - Continue current medical management Nutrition Counseling Practice these: - Eat 3 meals daily--can use approved/recommended protein shake as 1 meal replacement (should be <200 calories, 20-30g protein, <5g added sugar) - Keep a food journal 5-7x/week (consider Erly or [employer] kaitlynn) and demonstrate meeting protein goal (60-90g protein for females, 70-105g protein for males)- Lean meats, fish, low fat dairy - cottage cheese, [place] yogurt, light yogurt, cheese, ricotta cheese, nuts, peanut butter, beans/legumes. Eat protein first at all meals. and 64oz of caffeine-free, carbonation-free fluids at least 5 days per week - engage in formal, planned exercise 5x/week for 30 minutes of cardiovascular activity OR 150+ minutes of cardiovascular activity per week - eliminate all caffeine, carbonation, alcohol and sugar-containing beverages from diet --consider sugar-free drink mixes, water, decaf coffee and tea - Separate eating and drinking by 30 minutes - Chew your food 20-30x per bite - Sip beverages slowly--no guzzling or gulping Information regarding probable and potential postoperative complications, dietary and medical postoperative limitations, and potential cosmetic sequelae has been received by individual. Abigail Mcdermott MD [facility] Lap[facility]oscopic [facility] Bariatric Surgery Medical Decision Making: Problems: Moderate: 2+ stable chronic illnesses Data: Unique test result(s) reviewed: 3+ Unique test(s) ordered: 1 Discussed management or test w/ external physician/QHCP/source Risk: Moderate: Drug management High: Decision on elective major surgery w/ risk factors Medical Decision Making Level: 5 - High PMH: +HTN (amlodipine, telmisartan) + HLD (fenofibrate) + nephrolithiasis (s/p multiple lithotripsies) + Bipolar 2 (klonopin, latuda, zoloft) + hypothyroidism (synthroid) + Denies heartburn + chronic diarrhea (colestid) + Denies NSAIDs Surgical history significant for x 3, lap cholecystectomy, and lithotripsy Required monthly visits: 3 of 6 months. Patient is interested in: Sleeve Gastrectomy EGD: surgeon Upper GI: surgeon RUQ US: Fatty liver. Enlarged spleen(15.7 cm). Nephrolithiasis on the left. Possible bilateral nephrocalcinosis. Mildly dilated common duct. Prior cholecystectomy. Visualization is somewhat suboptimal due to patient build Sleep Study: Referral to pulmonology - needs HSAT CXR:per pulmonary clearance EKG:per cardiac clearance H Pylori pending Labs:pending Nicotine use <12 months: NA, ordered per insurance Tox: ordered Antiplatelet/anticoagulants: No Immunosuppressive therapy: No Estrogen therapy: No Evaluations Psychology: ongoing Nutrition: ongoing Education class: ongoing Clearances: Cardiac(01/29), Pulmonary(low; OV 12/05 - still needs HSAT), and PCP Risk Calculator: VTE Risk: OR time < 3 hours = 0.16% OR time > 3 hours = 0.25% ISS score: not diabetic Adverse Event score: TBD Post-op Medications: Extended Lovenox: Not needed Actigall: NA, s/p cholecystectomy PPI: Will require Rosalia Gaviria APRN.TSO documented in this encounter [facility] 12-07-2023 Telephone encounter Note Insurance Verification Insurance Company: [employer] Provider Phone #: [phone] Agent: Lia Effective Date: 11/21/23 Call Reference #: [id number] Months of Wt Loss: 6 Consecutive: 6 Months of Weight History:6 Obesity Medicine Coverage: yes COVERAGE: RNY-yes SLEEVE-yes BYPASS-yes REQUIREMENTS: Pulmonary Clearance: yes Cardiac Clearance: yes Nicotine Testing: yes Drug Testing: yes TSH Testing: yes If Female patient, is test required: In Network %-80 Deductible-500 OOP Max-3500 Surgeries per life- [employer]: Mike Provider: Ashia [facility] 12-07-2023 Miscellaneous Notes Insurance Verification Insurance Company: [employer] Provider Phone #: [phone] Agent: Lia Effective Date: 11/21/23 Call Reference #: [id number] Months of Wt Loss: 6 Consecutive: 6 Months of Weight History:6 Obesity Medicine Coverage: yes COVERAGE: RNY-yes SLEEVE-yes BYPASS-yes REQUIREMENTS: Pulmonary Clearance: yes Cardiac Clearance: yes Nicotine Testing: yes Drug Testing: yes TSH Testing: yes If Female patient, is test required: In Network %-80 Deductible-500 OOP Max-3500 Surgeries per life- [employer]: Black Provider: Ashia documented in this encounter [facility] 12-06-2023 Note HNO ID: [id number] Author: FRANTZ ORELLANA MD Service: ? Author Type: Physician Type: Progress Notes Filed: 12/06/2023 09:41 Note Text: Pulmonary Consult Patient Name: Mariia Davidson PRIMARY CARE PHYSICIAN: Karina Gonzalez MD REQUESTING PHYSICIAN: Ms Gaviria REASON FOR CONSULT: pre-op clearance CHIEF COMPLAINT: pre-op clearance HISTORY OF PRESENT ILLNESS: Mariia Davidson is a 42 year old white woman with a past medical history significant for obesity, pre-diabetes, HTN, HL, SNYDER, hypothyroidism, CRVO, nephrolithiasis, and bipolar seen in the office today for the above reason. Mariia is contemplating on getting bariatric surgery this year and this will be gastric sleeve one. In view of this, she is here for clearance. On a flat surface, she can walk for 2-3 miles without issues. She can also do 2-3 flights of stairs without issues. She does not work out on a daily basis. However, she walks in her neighborhood regularly. She denies any cardiopulmonary symptoms like chronic cough or sputum or chest pain or wheezing or exertional symptoms or leg swelling or any other concerning symptoms. She has never had a sleep study done. She has continued to gain pounds and in the last year has gained around 50 pounds. She has tried diet, exercises, and some meds without any benefit. [place] Sleepiness Scale: Sitting and readin Watching TV: 0 Sitting, inactive in a public place (e.g. a theatre or a meeting): 0 As a passenger in a car for an hour without a break: 0 Lying down to rest in the afternoon when circumstances permit: 1 Sitting and talking to someone: 0 Sitting quietly after a lunch without alcohol: 1 In a car, while stopped for a few minutes in the traffic: 0 Total: 2 SH: Non-smoker, lives with and three kids (12. 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 CARDIOVASCULAR: negative for SOB, chest pain on exertion, PND, orthopnea, leg swelling or palpitations. GASTROINTESTINAL: negative for nausea, vomiting, pain abdomen, acid reflux issues, abdominal discomfort, loose stools or constipation. No blood in stools or black stools; no difficulty swallowing or aspiration symptoms MUSCULOSKELETAL: negative for joint pain or joint swelling, back pain or muscle pain. NEUROLOGIC:Negative for focal numbness or weakness, headaches, dizziness or syncope. SKIN:Negative for lesions, rash, and itching. No new onset symptoms PSYCHIATRIC: Negative for sleep disturbance, mood disorder and recent psychosocial stressors HEMATOLOGIC/LYMPHATIC/IMMUNOLOGI C:Negative for cold or heat intolerance, polyuria, polydipsia and goiter. 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 PAST MEDICAL HISTORY Diagnosis Date bipolar 2 Breast disorder thick breast tissues with mammogram Central vein occlusion of retina Chronic diarrhea HTN (hypertension) Hypothyroidism Nephrolithiasis Non-alcoholic fatty liver disease Obesity depression 2011,2013 Pre-diabetes Preeclampsia 2011 Rh incompatibility Secondary anovulatory infertility PAST SURGICAL HISTORY Procedure Laterality Date DELIVERY ONLY 07/02/2015 , low transverse SECTION HX 2011,2012 CHOLECYSTECTOMY HX 2022 LITHOTRIPSY XTRCORP SHOCK WAVE FAMILY HISTORY Problem Relation Age of Onset None Mother Hypertension Father Cancer Maternal Grandmother Social History Tobacco Use Smoking status: Never Smokeless tobacco: Never Vaping Use Vaping Use: Never used Substance Use Topics Alcohol use: Not Currently Alcohol/week: 2.0 standard drinks of alcohol Types: 2 Glasses of wine per week Drug use: No ALLERGIES: ALLERGIES No Known Allergies CURRENT OUTPATIENT MEDICATIONS: amLODIPine (NORVASC) 5 mg tablet Take 5 mg by mouth once daily. FENOFIBRATE MICRONIZED 145 MG TAB 145 mg once daily. metFORMIN ER (FORTAMET) 500 mg 24 hr tablet Take 500 mg by mouth two times a day. lurasidone (LATUDA) 120 mg tablet Take by mouth. POTASSIUM CITRATE ORAL Take 15 mEq by mouth once daily. sertraline (ZOLOFT) 100 mg tablet Take 200 mg by mouth once daily. gabapentin (NEURONTIN) 100 mg cap (more content not included)... [facility] 12-06-2023 History of Presen t illness Narrative Images from the original note were not included. Pulmonary Consult Patient Name: Mariia Davidson PRIMARY CARE PHYSICIAN: Karina Gonzalez MD REQUESTING PHYSICIAN: Ms Gaviria REASON FOR CONSULT: pre-op clearance CHIEF COMPLAINT: pre-op clearance HISTORY OF PRESENT ILLNESS: Mariia Davidson is a 42 year old white woman with a past medical history significant for obesity, pre-diabetes, HTN, HL, SNYDER, hypothyroidism, CRVO, nephrolithiasis, and bipolar seen in the office today for the above reason. Mariia is contemplating on getting bariatric surgery this year and this will be gastric sleeve one. In view of this, she is here for clearance. On a flat surface, she can walk for 2-3 miles without issues. She can also do 2-3 flights of stairs without issues. She does not work out on a daily basis. However, she walks in her neighborhood regularly. She denies any cardiopulmonary symptoms like chronic cough or sputum or chest pain or wheezing or exertional symptoms or leg swelling or any other concerning symptoms. She has never had a sleep study done. She has continued to gain pounds and in the last year has gained around 50 pounds. She has tried diet, exercises, and some meds without any benefit. [place] Sleepiness Scale: Sitting and readin Watching TV: 0 Sitting, inactive in a public place (e.g. a theatre or a meeting): 0 As a passenger in a car for an hour without a break: 0 Lying down to rest in the afternoon when circumstances permit: 1 Sitting and talking to someone: 0 Sitting quietly after a lunch without alcohol: 1 In a car, while stopped for a few minutes in the traffic: 0 Total: 2 SH: Non-smoker, lives with and three kids (12. 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 CARDIOVASCULAR: negative for SOB, chest pain on exertion, PND, orthopnea, leg swelling or palpitations. GASTROINTESTINAL: negative for nausea, vomiting, pain abdomen, acid reflux issues, abdominal discomfort, loose stools or constipation. No blood in stools or black stools; no difficulty swallowing or aspiration symptoms MUSCULOSKELETAL: negative for joint pain or joint swelling, back pain or muscle pain. NEUROLOGIC:Negative for focal numbness or weakness, headaches, dizziness or syncope. SKIN:Negative for lesions, rash, and itching. No new onset symptoms PSYCHIATRIC: Negative for sleep disturbance, mood disorder and recent psychosocial stressors HEMATOLOGIC/LYMPHATIC/IMMUNOLOGI C:Negative for cold or heat intolerance, polyuria, polydipsia and goiter. 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 PAST MEDICAL HISTORY Diagnosis Date bipolar 2 Breast disorder thick breast tissues with mammogram Central vein occlusion of retina Chronic diarrhea HTN (hypertension) Hypothyroidism Nephrolithiasis Non-alcoholic fatty liver disease Obesity depression 2011,2013 Pre-diabetes Preeclampsia 2011 Rh incompatibility Secondary anovulatory infertility PAST SURGICAL HISTORY Procedure Laterality Date DELIVERY ONLY 07/02/2015 , low transverse SECTION HX 2011,2012 CHOLECYSTECTOMY HX 2022 LITHOTRIPSY XTRCORP SHOCK WAVE FAMILY HISTORY Problem Relation Age of Onset None Mother Hypertension Father Cancer Maternal Grandmother Social History Tobacco Use Smoking status: Never Smokeless tobacco: Never Vaping Use Vaping Use: Never used Substance Use Topics Alcohol use: Not Currently Alcohol/week: 2.0 standard drinks of alcohol Types: 2 Glasses of wine per week Drug use: No ALLERGIES: ALLERGIES No Known Allergies CURRENT OUTPATIENT MEDICATIONS: amLODIPine (NORVASC) 5 mg tablet Take 5 mg by mouth once daily. FENOFIBRATE MICRONIZED 145 MG TAB 145 mg once daily. metFORMIN ER (FORTAMET) 500 mg 24 hr tablet Take 500 mg by mouth two times a day. lurasidone (LATUDA) 120 mg tablet Take by mouth. POTASSIUM CITRATE ORAL Take 15 mEq by mouth once daily. sertraline (ZOLOFT) 100 mg tablet Take 200 mg by mouth once daily. gabapentin (NEURONTIN) 100 mg capsule Take 200 mg by mouth three times a day. clonazePAM (KLONOPIN) 2 mg tablet Take 2 mg by mouth two times a day as needed. telmisartan (MICARDIS) 40 mg tablet Take 40 mg by mouth once daily. levothyroxine 50 mcg cap Take 50 mcg by mouth daily before breakfast. colestipol HCl (COLESTIPOL ORAL) Take by mouth. PHYSICAL EXAM: BP 142/86 Pulse 91 Temp (Src) 98 (Temporal) Resp 18 Ht 5' 9 (1.75m) Wt 270 lb (122.5kg) SpO2 99% LMP 10/09/2021 BMI 39.85 kg/(m^2). General appearance: Well appearing, alert, in no acute distress, well-hydrated, well nourished. and Obese Neck: 17 inches; no JVD elevation HENT: External ears normal Eyes: no scleral icterus, PERRLA, EOMS, no conjunctivitis Nose/Sinuses: Nares normal. Septum midline. Mucosa normal. No drainage or sinus tenderness. Oropharynx: Lips, mucosa, and tongue normal, teeth and gums normal, oropharynx normal [place] Classification:Class III Respiratory: Lungs clear to auscultation. No wheezing, rhonchi, rales Cardiovascular: RRR without murmur, gallop, or rubs. No ectopy Gastroenterology: Inspection: Obese abdomen and Tenderness: none Extremities: Normal, Warm, No cyanosis, no clubbing, No edema, and Nontender Lymph nodes: no adenopathy DATA: Diagnostic tests reviewed for today's visit, films/specimens were personally reviewed by me: No recent labs CXR 10/2018: No acute changes ASSESSMENT: Mariia Davidson is a 42 year old white woman with a past medical history significant for obesity, pre-diabetes, HTN, HL, SNYDER, hypothyroidism, CRVO, nephrolithiasis, and bipolar seen in the office today for pre-op evaluation prior to gastric sleeve surgery. Pre-op clearance - she is at low risk for abbey-operative GA associated pulmonary complications like atelectasis, prolonged respiratory failure, pneumonia, VTE, and . Surgery is not prohibitive Possible sleep apnea with a neck circumference of 17 inches but with no sleep apnea symptoms and an ESS of 2 points; however has three risk factors on STOP-BANG - obesity/ HTN/ neck circumference more than 16 inches Morbid obesity with ongoing weight gain Pre-diabetes HTN, not well controlled Medical problems as listed PLAN: - home sleep study to evaluate for any ALESSANDRO concerns - okay to proceed with surgery and she is at low risk for complications - HTN per PCP - follow up with me as needed I discussed the plan in detail with the patient and questions answered. Frantz Orellana MD Cc to Dr Gonzalez, Dr Mcdermott, and Ms Gaviria My final recommendations will be communicated to the requesting health care provider by way of the shared medical record for internal providers or letter via the [employer] for external providers. documented in this encounter [facility] 12-06-2023 Telephone encounter Note Reminder call regarding 12/07/2023 new patient appointment. LVM for patient - asked patient to call back to confirm appointment. [facility] 12-06-2023 Miscellaneous Notes Reminder call regarding 12/07/2023 new patient appointment. LVM for patient - asked patient to call back to confirm appointment. documented in this encounter [facility] 10-24-2023 History of Presen t illness Narrative [facility] General - Bariatric Department New Patient Nutritional Assessment Conducted via zoom due to COVID 19 - Audio/Visual Mariia Davidson Month 07/19 Anthropometrics: 42 year old female Ht 175.3 cm (5' 9) Wt 112 kg (247 lb) LMP 10/09/2021 BMI 36.48 kg/m Percent Body Fat: deferred Medical History: PAST MEDICAL HISTORY Diagnosis Date bipolar 2 Breast disorder thick breast tissues with mammogram Chronic diarrhea Kidney stones Non-alcoholic fatty liver disease depression 2011,2013 Preeclampsia 2012 Rh incompatibility Secondary anovulatory infertility Medications: Current Outpatient Medications Medication Sig Dispense Refill amLODIPine (NORVASC) 5 mg tablet Take 5 mg by mouth once daily. FENOFIBRATE MICRONIZED 145 MG TAB 145 mg once daily. metFORMIN ER (FORTAMET) 500 mg 24 hr tablet Take 500 mg by mouth two times a day. lurasidone (LATUDA) 120 mg tablet Take by mouth. POTASSIUM CITRATE ORAL Take 15 mEq by mouth once daily. sertraline (ZOLOFT) 100 mg tablet Take 200 mg by mouth once daily. gabapentin (NEURONTIN) 100 mg capsule Take 200 mg by mouth three times a day. clonazePAM (KLONOPIN) 2 mg tablet Take 2 mg by mouth two times a day as needed. telmisartan (MICARDIS) 40 mg tablet Take 40 mg by mouth once daily. levothyroxine 50 mcg cap Take 50 mcg by mouth daily before breakfast. colestipol HCl (COLESTIPOL ORAL) Take by mouth. No current facility-administered medications for this visit. Allergies: Patient has no known allergies. Weight History: See ACCOUNTING PROFESSIONAL notes from initial program visit. Dietary Intake: 24 hour recall provided Breakfast- Doesn't eat breakfast Lunch- [place] and Cheese sandwich on sourdough bread Dinner- 10 chicken wings and a piece of lasagna Snacks- 2 bowls of special k cereal after dinner Limitations of keeping a food record: None Food Allergies: None Frequency of fried foods (deep fried/syriac fries/fried chicken etc):Rarely (1 - 2 times per week) Frequency of high sugar foods (candies, ice cream, cookies, ..etc): Never Frequency of snack-type foods (chips, crackers..etc): Often (5 - 7 times per week) Frequency of caffeine beverages: Often (5 - 7 times per week) Frequency of carbonated beverages: Never Frequency of alcoholic beverages: Never Frequency of full sugar beverages (juices/sweet teas..etc): Never Frequency of dining out meals: Rarely (1 - 2 times per week) Physical Activity: Physical conditions limiting activity (injury or chronic condition): None Are you endorsing in any routine exercise?: None READINESS TO LEARN Cognitive ability: Alert and oriented Motivation to learn: Eager Family support: Unable to assess - Family not present Instruction provided to: Patient Patient learns best by: Multiple Methods Factors affecting learning: Unable to assess Physical limitations affecting learning: None Nutrition Diagnosis: Overweight/obesity related to nutrition knowledge deficit as evidenced by BMI above normative range for age and gender, skipping meals per recall, increased intake of snack type foods, almost daily intake of caffeine, and inadequate physical activity for weight loss. Nutrition Intervention: Start to follow meal guidelines provided and work toward goals outlined below. Nutrition Monitoring & Evaluation: Monthly supervised wt loss to evaluate weight loss efforts with patient protein goal of 60-90g in addition to requirements from nutrition checklist provided by Dietitian during visit and sent via Social Touch message. Required months of supervised weight loss per insurance: per ACCOUNTING PROFESSIONAL notes The setting was a shared nutrition appointment in which the patient was seen individually with group observers. Consent to be seen in a group setting was obtained virtually. Goals reviewed and outlined below. [facility] Patient agreement was reviewed and Mariia Davidson received a copy of the patient agreement. The patient is aware by receiving this agreement, this accepts their understanding of the agreement and that surgery may not be recommended for medical and behavorial health reasons. Goals: Goals formal exercise 5-7x/week as tolerated, goal of 30 minutes OR 150 minutes of activity per week aim for 3 meals or 5-6 small meals per day with a protein source - can use 1 protein shake as 1 meal replacment journal daily and bring to all appointments Total time in direct patient contact = 60 min. Greater than 50% of the time was spent in counseling and/or coordination of care. Claudia Guillaume RD This note was generated using voice recognition technology and may contain grammatical errors. documented in this encounter [facility] 10-06-2023 Telephone encounter Note When looking at the benefit investigation that was completed on 09/20/23 it states that Bariatric surgery is Excluded from her plan. I called pt and LVM to inform her of this and offered on her VM Obesity med. I also stated that we will be canceling her upcoming appts with the Bariatric program. If she is interested in non surgery weight loss or self pay to give us a call back. [facility] 10-06-2023 Miscellaneous Notes When looking at the benefit investigation that was completed on 09/20/23 it states that Bariatric surgery is Excluded from her plan. I called pt and LVM to inform her of this and offered on her VM Obesity med. I also stated that we will be canceling her upcoming appts with the Bariatric program. If she is interested in non surgery weight loss or self pay to give us a call back. documented in this encounter [facility] 10-05-2023 Telephone encounter Note Left voicemail for patient to schedule US and give information for consults. Also sent a mychart message. See below checkout notes: Follow-up disposition: Return in about 4 weeks (around 11/02/2023) for Surgeon. Check out comments: Please schedule RUQ US (in November) Referrals to cardiology and pulmonology Michela Jensen MA [facility] 10-05-2023 Miscellaneous Notes Left voicemail for patient to schedule US and give information for consults. Also sent a mychart message. See below checkout notes: Follow-up disposition: Return in about 4 weeks (around 11/02/2023) for Surgeon. Check out comments: Please schedule RUQ US (in November) Referrals to cardiology and pulmonology Michela Jensen MA documented in this encounter [facility] 10-05-2023 Instructions Rosalia Gaviria, [email or web address] - 10/05/2023 9:00 AM EDT [email or web address] Welcome to the first step towards your new healthy life! As we discussed, please review the Bariatric Center program and contract. Review with the handouts that were provided which include: the plate diet, food journal, follow-up schedule, bariatric patient flowsheet, and support group flyer with upcoming dates. Please incorporate efforts at eating 3 meals per day with each meal lasting no longer than 30 minutes. Anything longer would be considered grazing. Also, begin incorporating exercise 4-5 times per week for 30 minutes. This will help you achieve your presurgical weight loss goal. Please attend educational class as scheduled. Please maintain your appointment with our psychologist for your evaluation as directed. Please complete any additional orders and/or testing as directed by your provider. You will see us on a 4-6 week basis for medically supervised weight loss and we'll progress you towards surgery. Height: Last 1 Encounter Ht Readings: Date: Ht: 10/30/2021 175.3 cm (5' 9) Weight:Last 1 Encounter Wt Readings: Date: Wt: 07/19/2022 108.9 kg (240 lb) [place] Body Weight: 169 lb Based on body mass index (BMI) of 25 kg/m2 which is considered the upper limit of normal weight. Excess Weight: 71 lb Realistic Sleeve Gastrectomy Weight Goal (55-76 % Excess weight loss):186 lb - 201 lb Realistic Gastric Bypass Weight Goal (60-80 % Excess weight loss): 183 lb - 197 lb Surgery is not the cure for obesity. It is a tool that can assist with weight loss and long-term management. However, this tool can be incredibly powerful with healthy eating and activity patterns. Diet: Three high-protein meals per day plus a healthy snack if needed. The goal is for each meal to be high in protein and relatively low in fat and carbohydrates. A meal should only last approximately 30 minutes. Physical Activity: 20-30 minutes of continuous exercise 5-6 times a week. This must be dedicated physical activity of moderate intensity (elevated heart rate) to promote calorie burning. documented in this encounter [facility] 10-05-2023 Nurse Note 8:10 am -Left voicemail for patient to call the office to update chart prior to video visit. Michela Jensen MA [facility] 10-05-2023 Nurse Note 8:10 am -Left voicemail for patient to call the office to update chart prior to video visit. Michela Jensen MA documented in this encounter [facility] 10-05-2023 History of Presen t illness Narrative BARIATRIC SURGERY NEW PATIENT CONSULTATION HISTORY AND PHYSICAL DISTANCE HEALTH VISIT This Team Access Model visit is a virtual encounter. It required patient-provider interaction for the medical decision making as documented below. Consent was obtained to complete today's distance health visit. I have communicated my name and active licensure. The patient's identity and physical location were verified at the time of this visit. Either the patient or their legal public health representative has been informed of the risks and benefits of -- and alternatives to -- treatment through a remote evaluation and consents to proceed with the evaluation remotely. Date: October 05, 2023 Time: 9:34 AM Name: Mariia Davidson CHIEF COMPLAINT: This is a 42 year old female with morbid obesity (Body mass index is 35.74 kg/m .) who presents to clinic for consideration of bariatric surgery. HISTORY OF PRESENTING ILLNESS: Mariia Davidson presents today for consideration of bariatric surgery. She has suffered from weight problems majority of she lifespan and has numerous attempts at weight loss. This individual has lost weight through diet and exercise attempts, however ultimately regained this weight. Furthermore,She has struggled with being overweight most of her life, including childhood/adolescent years. She began struggling even more so after giving to her children. At one point, she was able to lose 100 pounds on her own but ultimately regained this weight. She has made multiple attempts at weight loss through diet, exercise, and obesity medication-with little success. Her heaviest adult weight is 242 pounds, her healthy is adult weight is 158 pounds. She has hypertension, currently taking 2 antihypertensives. She also has hyperlipidemia, taking fenofibrate. She denies further cardiac issues such as CHF, CAD, arrhythmias. She has a history of numerous episodoes of nephrolithiasis, has underwent multiple lithotripsies. She has bipolar 2 disorder, currently well-managed with medication, counselor, and psychiatrist. Denies acid reflux symptoms, heartburn, dysphagia. She does struggle with chronic constipation ever since having lap cholecystectomy. She takes Colestid which manages her symptoms well. Denies frequent use of NSAIDs Denies history of DVT/PE, diabetes, asthma, COPD. Denies tobacco/nicotine use, exposure to secondhand smoke, alcohol use, and illicit drug use. Surgical history significant for x 3, lap cholecystectomy, and lithotripsy HISTORY REVIEWED (electronic chart updated): - medical history - medications - allergies PAST MEDICAL HISTORY Diagnosis Date bipolar 2 Breast disorder thick breast tissues with mammogram Chronic diarrhea Kidney stones Non-alcoholic fatty liver disease depression 2011,2013 Preeclampsia 2011 Rh incompatibility Secondary anovulatory infertility PAST SURGICAL HISTORY Procedure Laterality Date DELIVERY ONLY 07/02/2015 , low transverse SECTION HX 2011,2012 CHOLECYSTECTOMY HX 2022 LITHOTRIPSY XTRCORP SHOCK WAVE FAMILY HISTORY Problem Relation Age of Onset None Mother Hypertension Father Cancer Maternal Grandmother SOCIAL HISTORY: Social History Tobacco Use Smoking status: Former Smokeless tobacco: Never Vaping Use Vaping Use: Never used Substance Use Topics Alcohol use: Not Currently Alcohol/week: 2.0 standard drinks of alcohol Types: 2 Glasses of wine per week Drug use: No MEDICATIONS: Prior to Admission Medications: amLODIPine (NORVASC) 5 mg tablet Take 5 mg by mouth once daily. FENOFIBRATE MICRONIZED 145 MG TAB 145 mg once daily. metFORMIN ER (FORTAMET) 500 mg 24 hr tablet Take 500 mg by mouth two times a day. lurasidone (LATUDA) 120 mg tablet Take by mouth. POTASSIUM CITRATE ORAL Take 15 mEq by mouth once daily. sertraline (ZOLOFT) 100 mg tablet Take 200 mg by mouth once daily. gabapentin (NEURONTIN) 100 mg capsule Take 200 mg by mouth three times a day. clonazePAM (KLONOPIN) 2 mg tablet Take 2 mg by mouth two times a day as needed. telmisartan (MICARDIS) 40 mg tablet Take 40 mg by mouth once daily. levothyroxine 50 mcg cap Take 50 mcg by mouth daily before breakfast. colestipol HCl (COLESTIPOL ORAL) Take by mouth. ALLERGIES No Known Allergies Sleep apnea screen: S-snore? No T-feel tired, fatigued, daytime sleepiness? No O-observed patient stop breathing during sleep? No P-does patient have, or being treated for high blood pressure? Yes B-is BMI >35? Yes A-Age >50 No N-Neck circumference >15.75 inches? Unable to assess G-Male gender? No [place] score:2-3 REVIEW OF SYSTEMS: GENERAL: No weight loss, malaise or fevers HEENT: Negative for frequent or significant headaches, No changes in hearing or vision, no nose bleeds or other nasal problems NECK: Negative for lumps, goiter, pain and significant neck swelling RESPIRATORY: Negative for cough, hemoptysis, wheezing, COPD, dyspnea or shortness of breath CARDIOVASCULAR: Negative for chest pain, leg swelling, CHF or palpitations GI: No nausea, vomiting, or diarrhea and No heartburn or reflux symptoms : No history of dysuria, frequency or incontinence MUSCULOSKELETAL: Negative for joint pain or swelling, back pain or muscle pain SKIN: Negative for lesions, rash, and itching PSYCH: Negative for sleep disturbance, mood disorder and recent psychosocial stressors HEMATOLOGY/LYMPHOLOGY: Negative for prolonged bleeding, bruising easily or swollen nodes ENDOCRINE: Negative for cold or heat intolerance, polyuria, polydipsia and goiter PHYSICAL EXAM: Wt 109.8 kg (242 lb) LMP 10/09/2021 BMI 35.74 kg/m GENERAL APPEARANCE: Pleasant, interacts appropriately and in no apparent distress Appropriately groomed, happy, smiling, and interactive. ENT: Oral mucosa pink without lesions/ulcerations; LUNGS: unlabored on room air negative findings: normal respiratory rate and rhythm, no cough ABDOMEN: Obese SKIN: Skin of normal texture, temperature without rashes/lesions/ulcerations. NEURO/PSYCH: Oriented to person, place, time; appropriate insight and judgement. Appropriate affect. Diagnostic Tests Reviewed for Today's Visit Most recent labs and imaging results. Further Work-up: Required monthly visits: 1 of 6 months. Patient is interested in: Sleeve Gastrectomy EGD: surgeon Upper GI: surgeon MERLINE US: pending Sleep Study: Referral to pulmonology CXR:per pulmonary clearance EKG:per cardiac clearance H Pylori pending Labs:pending Nicotine use <12 months: NA, ordered per insurance Tox: ordered Antiplatelet/anticoagulants: No Immunosuppressive therapy: No Estrogen therapy: No Evaluations Psychology: ongoing Nutrition: ongoing Education class: ongoing Clearances: Cardiac, Pulmonary, and PCP Risk Calculator: VTE Risk: OR time < 3 hours = 0.16% OR time > 3 hours = 0.25% ISS score: not diabetic Adverse Event score: TBD Post-op Medications: Extended Lovenox: Not needed Actigall: NA, s/p cholecystectomy PPI: Will require IMPRESSION AND PLAN: Mariia Davidson is a 42 year old female with the following diagnosis and co-morbidities: Body mass index is 35.74 kg/m . This patient does meet the criteria for a surgical weight loss procedure according to NIH guidelines. Time was spent discussing both surgical options as well as she was provided with estimations in terms of percent excess weight loss. Procedure she is interested in: Mariia Davidson complete a 6 month trial of diet and exercise. Therefore, Mariia Davidson received 10-15 minutes of dietary counseling in office today, as well as was scheduled for our shared education class. She will also need to be cleared by psychology. Patient was educated on risk and should not get within two years after bariatric surgery (if applicable). could result in very poor weight loss and could be dangerous for the baby. ASSESSMENT/PLAN: 1. Class 2 obesity with body mass index (BMI) of 35.0 to 35.9 in adult, unspecified obesity type, unspecified whether serious comorbidity present - ICD9: 278.00, V85.35, ICD10: E66.9, Z68.35 (primary diagnosis) Weight increasing - Behavioral intervention and - Medical nutrition therapy with dietitian - SNA scheduled 10/23 - CONSULT TO CARDIOLOGY - CONSULT TO PULMONARY MEDICINE - COMPLETE BLOOD COUNT - COMPREHENSIVE METABOLIC PANEL - FERRITIN - FOLATE, SERUM - HEMOGLOBIN A1C - IRON AND TIBC - LIPID PANEL BASIC - NICOTINE & METAB, UR - PTH INTACT - TOXICOLOGY SCREEN, ROUTINE URINE - US ABD RIGHT UPPER QUADRANT - THYROID STIMULATING HORMONE - VITAMIN A/RETINOL - VITAMIN B1 (THIAMINE), WHOLE BLOOD - VITAMIN B12 - VITAMIN D 25 HYDROXY - ZINC BLD 2. Hypertension, unspecified type - ICD9: 401.9, ICD10: I10 - On telmisartan and amlodipine - Requesting cardiac clearance - CONSULT TO CARDIOLOGY 3. Bipolar 2 disorder (HCC) - ICD9: 296.89, ICD10: F31.81 - On Klonopin, Latuda, Zoloft - Has psychiatrist and counselor 4. Hyperlipidemia, unspecified hyperlipidemia type - ICD9: 272.4, ICD10: E78.5 - On fenofibrate - Requesting cardiac clearance - CONSULT TO CARDIOLOGY We will continue to see patient on a monthly basis until all testing and clearances are complete. Follow-up with surgeon next month to discuss surgical plan and additional testing if needed. Of note, patient is currently self-pay until she qualifies for insurance beginning in November. She is going to wait until she has insurance to complete testing and specialty clearance appointments. Rosalia Gaviria, TELLERS SUPERVISOR.TSO I spent a total of 45 minutes on the date of the service which included preparing to see the patient, [id number] patient care, completing clinical documentation, obtaining and/or reviewing separately obtained history,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 [facility] Routing to Non Anoop ivf Pool Raegan Hagen RN November 02, 2021 11:51 AM Patient needs endocrinology referral Routing to Non Anoop ivf Pool Raegan Hagen RN November 02, 2021 11:07 AM documented in this encounter [facility] 11-02-2021 Miscellaneous Notes Sent my chart regarding tsh and t4 Raegan Hagen RN November 02, 2021 7:47 AM documented in this encounter [facility] 10-30-2021 History of Presen t illness Narrative Mariia is a 40 year old who presents for an annual gynecologic exam without complaints. She has not been seen in office since 2013. She currently is being seen by Dr. Miller from reproductive endocrinology. She was referred here for routine PAP and exam. Menses: cycles every 27 days and 5 days of flow. 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 History Comments: Sexual Activity: Yes; Male Contraception: None PAST MEDICAL HISTORY Diagnosis Date Bipolar 1 disorder (HCC) Breast disorder thick breast tissues with mammogram Chronic diarrhea Non-alcoholic fatty liver disease depression 2011,2013 Preeclampsia 2011 Rh incompatibility Secondary anovulatory infertility PAST SURGICAL HISTORY Procedure Laterality Date DELIVERY ONLY 07/02/15 , low transverse SECTION HX 2011,2012 FAMILY HISTORY Problem Relation Age of Onset None Mother Hypertension Father Cancer Maternal Grandmother SOCIAL HISTORY Social History Tobacco Use Smoking status: Former Smoker Smokeless tobacco: Never Used Vaping Use Vaping Use: Never used Substance Use Topics Alcohol use: Not Currently Alcohol/week: 2.0 standard drinks Types: 2 Glasses of wine per week Drug use: No REVIEW OF SYSTEMS Abdomen: No abdominal pain, nausea, vomiting, or constipation. Positive for chronic diarrhea. Bladder: No dysuria, gross hematuria, urinary frequency, urinary urgency, or incontinence. Breast: No breast lumps, nipple d/c, overlying skin changes, redness or skin retraction. Allergies and current medication updated:Yes EXAM: BP 126/100 Ht 5' 9 (1.75m) Wt 248 lb (112.5kg) LMP 10/09/2021 BMI 36.61 kg/(m^2). GENERAL: pleasant, female in no apparent distress HEENT: Normocephalic and atraumatic NECK: Supple and full range of motion DERMATOLOGY: Normal and without lesions BREAST: soft, non-tender, symmetric, no dominant mass, normal nipple-areolar complex, no lymphadenopathy, no nipple discharge and fibrocystic changes CHEST: Normal inspiratory effort ABDOMEN: soft, non-tender and no masses PELVIC: external genitalia normal, normal Bartholin's glands, urethra, Tajique's glands, no vulvar lesions, no cervical lesions, good vaginal support, physiologic discharge present, normal appearing perineal body and perianal region, cervix friable- had to apply pressure to os after sample obtained. BIMANUAL: uterus normal size, shape and consistency, no adnexal masses, non-tender and no cervical motion tenderness RECTOVAGINAL: deferred. NEURO: alert and oriented x3,exam grossly non-focal EXTREMITIES: normal ASSESSMENT/PLAN: 1) Health maintenance: Pap done with HPV. Mammogram ordered- Patient to start screenings this year age 40 Nutrition, exercise and routine health maintenance exams reviewed. Calcium/Vitamin D supplementation information provided. Lipids/glucose: followed by PCP 2) Contraception: none- desires 3) STD screening: Declined STD check. 4) Follow up one year or sooner as needed Lore Jang APRN.CNM documented in this encounter [facility] 10-29-2021 Miscellaneous Notes Thank you for speaking with her. Given her lithium use, lets repeat T4 and TSH and if still elevated she should make appt with endocrinology. However this minimal elevation will not prohibit her proceeding forward as I believe she just wants to try ovulation induction med for a very short time. Message text -- Unable to reach patient by phone, sent Scutum message with instructions. Laquita Moreno PA-C October 29, 2021 4:11 PM Called the pt back. We discussed the plan in detail. Pt completed the labs on cd 21. Component Latest Ref Rng & Units 10/28/2021 Progesterone See comment ng/mL 0.2 TSH 0.270 - 4.200 mIU/L 4.460 (H) Prolactin 4.5 - 26.8 ng/mL 13.2 No ovulation by cd 20. States she never got a + OPK Elevated TSH. Pt states she is scheduled with an FINANCIAL SERVICES EDUCATION CONSULTANT provider for tomorrow. She refuses to have the do SA She hasn't stopped lithium yet, but has stopped trulicity. Pt will follow up once all the requirements are met. Note: Dr. Miller, do you want her to start synthroid, or should she follow up with an neuro psych sales specialist? Laquita Moreno PA-C October 29, 2021 12:04 PM Pt calling regarding results and asking for a prescription for Letrozole. Please call into [facility] on file. Please call pt when called in. Thank you documented in this encounter [facility] 10-26-2021 History of Presen t illness Narrative [facility] October 26, 2021 New Virtual Consult Consent obtained for phone/virtual consult- Mariia Davidson 1980 Mariia Davidson is a 40 year old.G 4 P 3 Ab 1 . She presents with infertility. Was last seen 5 years ago. Still on [place] for bipolar disease. She now has regular periods. She has been using LH kits and could not pickle processor LH surge. She is with the same partner. Fatty liver diseas noted three months ago. Per pt her liver enzymes are normal. Last two HgA1C was 4.4. Patient did not have period for 2-3 years then became regular 6 months ago when she lost 40 lbs.Patient started metformin 6 months ago. Patient is on trulicity for weight loss. In 2017 did 2 IUI with clomid 100 mg and 150 mg unsuccessful. 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 Her last pap was 2015. 05/2016 FSH- 7.6 PRL- 29.4- normal per this lab dheas nl Free test- normal tsh- 3.16 U/s of pelvis was normal- per report no images today. Obstetric History T3 TAB0 SAB1 E0 M0 L3 06/2015- boy, c/section 05/2013- c/section 09/15/2011- c/section [facility] 03/2015- SAB early, no D&C. Menstrual Hx: Menarche: unknown Cycle length: 27 days Duration: 5-6 days Flow: medium Other: cramps Past Medical Hx: PAST MEDICAL HISTORY Diagnosis Date Bipolar 1 disorder (HCC) Breast disorder thick breast tissues with mammogram depression 2011,2013 Preeclampsia 2011 Rh incompatibility Secondary anovulatory infertility Past Surgical Hx: PAST SURGICAL HISTORY Procedure Laterality Date DELIVERY ONLY 07/02/15 , low transverse SECTION HX 2011,2012 Social History Tobacco Use Smoking status: Former Smoker Smokeless tobacco: Never Used Substance Use Topics Alcohol use: Yes Alcohol/week: 2.0 standard drinks Types: 2 Glasses of wine per week Drug use: No Current Outpatient Medications Medication Sig dulaglutide (TRULICITY SUBCUTANEOUS) Inject subcutaneously. tizanidine HCl (TIZANIDINE ORAL) Take by mouth. lithium carbonate 300 mg tablet Take 900 mg by mouth twice daily. metFORMIN (GLUCOPHAGE) 500 mg tablet Take 500 mg by mouth twice daily with meals. clonazePAM (KLONOPIN) 2 mg tablet Take 1 mg by mouth twice daily as needed. medroxyPROGESTERone (PROVERA) 10 mg tablet Take 1 tablet by mouth once daily. FOR 10 DAYS. (Patient not taking: Reported on 10/28/2018 ) #[id number] #[id number] ORAL Take by mouth once daily. No current facility-administered medications for this visit. Colestipol 4 pills a day for chronic diarrhea Assessment- infertility, bipolar disease, fatty liver disease. Plan- establish with [employer] and get pap and pelvic. SA for her . She has had blood work done at [facility] by her GI doctor and PCP and psychiatry. She understands that she would need to stop lithium. Is aware of the the c/section scan window and had discussed it with Dr Acevedo in the past. She will stop the trulicity. She will get a midluteal P4. If not ovulating the will take letrozol 2.5 mg days 3-7. Folic acid 4 mg daily. I spent a total of 30 minutes on the date of the service which included preparing to see the patient, [id number] patient care, completing clinical documentation, counseling and educating the patient/family/caregiver and ordering medications, tests, or procedures. Mabel Miller MD documented in this encounter [facility] 03-31-2015 History of Past i llness Narrative Problem Noted Date Resolved Date Ultrasound scan to check fet al weight, previous large baby, previous , antepartum 03/31/2015 05/28/2016 Previous section 03/31/20152015 documented as of this encounter (statuses as of 10/29/2021) [facility] History of Past illness Narrative* Problem Noted Date Resolved Date Ultrasound scan to check fet al weight, previous large baby, previous , antepartum 03/31/2015 05/28/2016 Previous section 03/31/20152015 documented as of this encounter (statuses as of 10/30/2021) [facility] History of Past illness Narrative* Problem Noted Date Resolved Date Ultrasound scan to check fet al weight, previous large baby, previous , antepartum 03/31/2015 05/28/2016 Previous section 03/31/20152015 documented as of this encounter (statuses as of 11/01/2021) [facility] History of Past illness Narrative* Problem Noted Date Resolved Date Ultrasound scan to check fet al weight, previous large baby, previous , antepartum 03/31/2015 05/28/2016 Previous section 03/31/20152015 documented as of this encounter (statuses as of 11/02/2021) [facility] History of Past illness Narrative* Problem Noted Date Resolved Date Ultrasound scan to check fet al weight, previous large baby, previous , antepartum 03/31/2015 05/28/2016 Previous section 03/31/20152015 documented as of this encounter (statuses as of 11/02/2021) [facility] History of Past illness Narrative* Problem Noted Date Resolved Date Ultrasound scan to check fet al weight, previous large baby, previous , antepartum 03/31/2015 05/28/2016 Previous section 03/31/20152015 documented as of this encounter (statuses as of 11/03/2021) [facility] History of Past illness Narrative* Problem Noted Date Resolved Date Ultrasound scan to check fet al weight, previous large baby, previous , antepartum 03/31/2015 05/28/2016 Previous section 03/31/20152015 documented as of this encounter (statuses as of 11/03/2021) [facility] History of Past illness Narrative* Problem Noted Date Resolved Date Ultrasound scan to check fet al weight, previous large baby, previous , antepartum 03/31/2015 05/28/2016 Previous section 03/31/20152015 documented as of this encounter (statuses as of 12/23/2021) [facility] History of Past illness Narrative* Problem Noted Date Resolved Date Ultrasound scan to check fet al weight, previous large baby, previous , antepartum 03/31/2015 05/28/2016 Previous section 03/31/20152015 documented as of this encounter (statuses as of 07/12/2022) [facility] History of Past illness Narrative* Problem Noted Date Resolved Date Ultrasound scan to check fet al weight, previous large baby, previous , antepartum 03/31/2015 05/28/2016 Previous section 03/31/20152015 documented as of this encounter (statuses as of 07/13/2022) [address]19-2015 History of Past illness Narrative* Problem Noted Date Resolved Date Ultrasound scan to check fet al weight, previous large baby, previous , antepartum 03/31/2015 05/28/2016 Previous section 03/31/20152015 documented as of this encounter (statuses as of 07/19/2022) [facility] History of Past illness Narrative* Problem Noted Date Resolved Date Ultrasound scan to check fet al weight, previous large baby, previous , antepartum 03/31/2015 05/28/2016 Previous section 03/31/20152015 documented as of this encounter (statuses as of 07/27/2022) [facility] History of Past illness Narrative* Problem Noted Date Diagnosed Date Resolved Date Ultrasound scan to check fet al weight, previous large baby, previous , antepartum 03/31/2015 05/28/2016 Previous section 03/31/2015 documented as of this encounter (statuses as of 08/29/2023) [facility] History of Past illness Narrative* Problem Noted Date Diagnosed Date Resolved Date Ultrasound scan to check fet al weight, previous large baby, previous , antepartum 03/31/2015 05/28/2016 Previous section 03/31/2015 documented as of this encounter (statuses as of 08/29/2023) [facility] History of Past illness Narrative* Problem Noted Date Diagnosed Date Resolved Date Ultrasound scan to check fet al weight, previous large baby, previous , antepartum 03/31/2015 05/28/2016 Previous section 03/31/2015 documented as of this encounter (statuses as of 09/21/2023) [facility] History of Past illness Narrative* Problem Noted Date Diagnosed Date Resolved Date Ultrasound scan to check fet al weight, previous large baby, previous , antepartum 03/31/2015 05/28/2016 Previous section 03/31/2015 documented as of this encounter (statuses as of 09/28/2023) [facility] N[facility]* Chief Complaint STAGING ABD PAIN LIVER EVALUATION NEED ORDER [facility] Work Phone: Chigz complaint+Reason for visit Narrative* Chief Complaint STAGING ABD PAIN LIVER EVALUATION NEED ORDER F/U (LIVER BX) DIDN'T WANT TO SEE RT [facility] Work Phone: Chimw complaint+Reason for visit Narrative* Chief Complaint STAGING ABD PAIN LIVER EVALUATION NEED ORDER F/U (LIVER BX) DIDN'T WANT TO SEE RT EORDER- 2 ORDERS/ 2 DRS Reason for Visit Alcoholic hepatitis Diarrhea Fatty liver due to alcoholism [facility] Work Phone: Chiah complaint+Reason for visit Narrative* Chief Complaint ABD PAIN LIVER EVALUATION NEED ORDER F/U (LIVER BX) DIDN'T WANT TO SEE RT EORDER- 2 ORDERS/ 2 DRS 8 WK FU E ORDER Reason for Visit Alcoholic hepatitis Diarrhea Fatty liver due to alcoholism Alcoholic hepatitis Diarrhea Fatty liver due to alcoholism Obesity (BMI 30-39.9) [facility] Work Phone: Chith complaint+Reason for visit Narrative* Chief Complaint LIVER EVALUATION NEED ORDER F/U (LIVER BX) DIDN'T WANT TO SEE RT EORDER- 2 ORDERS/ 2 DRS 8 WK FU E ORDER vomiting Reason for Visit Alcoholic hepatitis Diarrhea Fatty liver due to alcoholism Alcoholic hepatitis Diarrhea Fatty liver due to alcoholism Obesity (BMI 30-39.9) [facility] Work Phone: Chikm complaint+Reason for visit Narrative* Chief Complaint LIVER EVALUATION NEED ORDER F/U (LIVER BX) DIDN'T WANT TO SEE RT EORDER- 2 ORDERS/ 2 DRS 8 WK FU E ORDER vomiting CC DR AERLIS JONES Reason for Visit Alcoholic hepatitis Diarrhea Fatty liver due to alcoholism Alcoholic hepatitis Diarrhea Fatty liver due to alcoholism Obesity (BMI 30-39.9) [facility] Work Phone: Chitw complaint+Reason for visit Narrative* Chief Complaint LIVER EVALUATION NEED ORDER F/U (LIVER BX) DIDN'T WANT TO SEE RT EORDER- 2 ORDERS/ 2 DRS 8 WK FU E ORDER vomiting CC DR ARELIS JONES EORDER Reason for Visit Alcoholic hepatitis Diarrhea Fatty liver due to alcoholism Alcoholic hepatitis Diarrhea Fatty liver due to alcoholism Obesity (BMI 30-39.9) [facility] Work Phone: evaluation noteNo assessment information available [facility] Work Phone: evaluation note* Diagnosis Onset Date Resolution Status Alcoholic hepatitis acute Diarrhea acute Fatty liver due to alcoholism acute [facility] Work Phone: evaluation note* Diagnosis Secondary anovulatory infertility- Primary Female infertility associated with anovulation documented in this encounter [facility] note* Diagnosis Encounter for screening mammogram for malignant neoplasm of breast- Primary Other screening mammogram Encounter for gynecological examination without abnormal finding Routine gynecological examination Encounter for screening for malignant neoplasm of cervix Screening for malignant neoplasm of the cervix Special screening examination for human papillomavirus (HPV) Secondary anovulatory infertility Female infertility associated with anovulation Class 2 obesity with body mass index (BMI) of 36.0 to 36.9 in adult, unspecified obesity type, unspecified whether serious comorbidity present documented in this encounter [facility] note* Diagnosis Female infertility- Primary Female infertility of unspecified origin [facility] [place] [facility]* Diagnosis Elevated TSH- Primary Nonspecific abnormal results of thyroid function study [facility] [place] [facility]* Diagnosis Treatment plan provided- Primary documented in this encounter [facility] note* Diagnosis Encounter for fertility planning- Primary Other specified procreative management documented in this encounter [facility] note* Diagnosis Onset Date Resolution Status Alcoholic hepatitis acute Diarrhea acute Fatty liver due to alcoholism acute Alcoholic hepatitis acute Diarrhea acute Fatty liver due to alcoholism acute Obesity (BMI 30-39.9) [facility] Work Phone: evaluation note* Diagnosis Encounter for medication refill- Primary Issue of repeat prescriptions [facility] [place] [facility]* Diagnosis Onset Date Resolution Status Alcoholic hepatitis acute Diarrhea acute Fatty liver due to alcoholism acute Obesity (BMI 30-39.9) acute [facility] Work Phone: evaluation note* Diagnosis Encounter for fertility planning [Z31.89 (ICD-10-CM)]- Primary Other specified procreative management documented in this encounter [facility] note* Diagnosis Sore throat- Primary Acute pharyngitis Strep throat Streptococcal sore throat documented in this encounter [facility] note* Diagnosis Eating disorder, unspecified type- Primary Bipolar affective disorder, remission status unspecified (HCC) documented in this encounter [facility] note* Diagnosis Class 2 obesity with body mass index (BMI) of 35.0 to 35.9 in adult, unspecified obesity type, unspecified whether serious comorbidity present- Primary Hypertension, unspecified type Bipolar 2 disorder (HCC) Other bipolar disorders Hyperlipidemia, unspecified hyperlipidemia type [facility] [place] [facility]* Diagnosis Class 2 obesity with body mass index (BMI) of 36.0 to 36.9 in adult, unspecified obesity type, unspecified whether serious comorbidity present- Primary [facility] [place] [facility]* Diagnosis Class 2 obesity with body mass index (BMI) of 35.0 to 35.9 in adult, unspecified obesity type, unspecified whether serious comorbidity present [facility] [place] [facility]* Diagnosis Pre-op evaluation- Primary Preoperative examination, unspecified Acquired hypothyroidism Unspecified hypothyroidism Primary hypertension Unspecified essential hypertension Nephrolithiasis Calculus of kidney Non-alcoholic fatty liver disease Other chronic nonalcoholic liver disease Pre-diabetes Other abnormal glucose Central retinal vein occlusion with macular edema of right eye Class 2 severe obesity due to excess calories with serious comorbidity and body mass index (BMI) of 36.0 to 36.9 in adult (HCC) documented in this encounter [facility] note* Diagnosis Class 2 severe obesity with serious comorbidity and body mass index (BMI) of 39.0 to 39.9 in adult, unspecified obesity type (HCC)- Primary Hypertension, unspecified type Hyperlipidemia, unspecified hyperlipidemia type Bipolar 2 disorder (HCC) Other bipolar disorders Hypothyroidism, unspecified type Chronic diarrhea Diarrhea NAFLD (nonalcoholic fatty liver disease) Other chronic nonalcoholic liver disease Prediabetes Other abnormal glucose [facility] [place] [facility] Diagnosis Dietary counseling and surveillance- Primary Dietary surveillance and counseling [facility] [place] [facility] Diagnosis Vitamin D deficiency- Primary Unspecified vitamin D deficiency Abnormal kidney function Unspecified disorder of kidney and ureter [facility] [place] [facility] Diagnosis Dietary counseling and surveillance- Primary Dietary surveillance and counseling [facility] [place] [facility]* Diagnosis Eating disorder, unspecified type- Primary Bipolar affective disorder, remission status unspecified (HCC) documented in this encounter [facility] note* Diagnosis Class 2 severe obesity with serious comorbidity and body mass index (BMI) of 39.0 to 39.9 in adult, unspecified obesity type (HCC) [facility] [place] [facility]* Diagnosis Preop cardiovascular exam- Primary Pre-operative cardiovascular examination Class 2 obesity with body mass index (BMI) of 35.0 to 35.9 in adult, unspecified obesity type, unspecified whether serious comorbidity present Hypertension, unspecified type [facility] [place] [facility]* Diagnosis Class 2 severe obesity with serious comorbidity and body mass index (BMI) of 39.0 to 39.9 in adult, unspecified obesity type (HCC)- Primary Vitamin D deficiency Unspecified vitamin D deficiency Abnormal kidney function Unspecified disorder of kidney and ureter Hypertension, unspecified type Hyperlipidemia, unspecified hyperlipidemia type ALESSANDRO (obstructive sleep apnea) Obstructive sleep apnea (adult) (pediatric) Marijuana use Cannabis abuse, unspecified [facility] [place] [facility]* Diagnosis Dietary counseling and surveillance- Primary Dietary surveillance and counseling documented in this encounter [facility] note* Diagnosis Class 2 obesity with body mass index (BMI) of 37.0 to 37.9 in adult, unspecified obesity type, unspecified whether serious comorbidity present- Primary Abnormal kidney function Unspecified disorder of kidney and ureter Vitamin D deficiency Unspecified vitamin D deficiency Medical marijuana use Encounter for long-term (current) use of other medications documented in this encounter [facility] note* Diagnosis Class 2 obesity with body mass index (BMI) of 37.0 to 37.9 in adult, unspecified obesity type, unspecified whether serious comorbidity present- Primary Hypertension, unspecified type Hyperlipidemia, unspecified hyperlipidemia type NAFLD (nonalcoholic fatty liver disease) Other chronic nonalcoholic liver disease Bipolar 2 disorder (HCC) Other bipolar disorders Hypothyroidism, unspecified type Pre-diabetes Other abnormal glucose Chronic diarrhea Diarrhea Medical marijuana use Encounter for long-term (current) use of other medications Body mass index 37.0-37.9, adult Body Mass Index 37.0-37.9, adult Hypertension, unspecified type Hyperlipidemia, unspecified hyperlipidemia type NAFL (nonalcoholic fatty liver) Other chronic nonalcoholic liver disease Unspecified hypothyroidism Pre-diabetes Other abnormal glucose Medical marijuana use Encounter for long-term (current) use of other medications documented in this encounter [facility] note* Diagnosis Body mass index 37.0-37.9, adult- Primary Body Mass Index 37.0-37.9, adult Hypertension, unspecified type Hyperlipidemia, unspecified hyperlipidemia type NAFL (nonalcoholic fatty liver) Other chronic nonalcoholic liver disease Unspecified hypothyroidism Pre-diabetes Other abnormal glucose Medical marijuana use Encounter for long-term (current) use of other medications Body mass index 37.0-37.9, adult Body Mass Index 37.0-37.9, adult Hypertension, unspecified type Hyperlipidemia, unspecified hyperlipidemia type NAFL (nonalcoholic fatty liver) Other chronic nonalcoholic liver disease Unspecified hypothyroidism Pre-diabetes Other abnormal glucose Medical marijuana use Encounter for long-term (current) use of other medications [facility] [place] [facility] Diagnosis Class 2 obesity with body mass index (BMI) of 37.0 to 37.9 in adult, unspecified obesity type, unspecified whether serious comorbidity present- Primary Body mass index 37.0-37.9, adult Body Mass Index 37.0-37.9, adult Hypertension, unspecified type Hyperlipidemia, unspecified hyperlipidemia type NAFL (nonalcoholic fatty liver) Other chronic nonalcoholic liver disease Unspecified hypothyroidism Pre-diabetes Other abnormal glucose Medical marijuana use Encounter for long-term (current) use of other medications [facility] [place] [facility] Diagnosis Vitamin D deficiency Unspecified vitamin D deficiency Body mass index 37.0-37.9, adult Body Mass Index 37.0-37.9, adult Hypertension, unspecified type Hyperlipidemia, unspecified hyperlipidemia type NAFL (nonalcoholic fatty liver) Other chronic nonalcoholic liver disease Unspecified hypothyroidism Pre-diabetes Other abnormal glucose Medical marijuana use Encounter for long-term (current) use of other medications [facility] [place] [facility] Diagnosis Class 2 obesity with body mass index (BMI) of 37.0 to 37.9 in adult, unspecified obesity type, unspecified whether serious comorbidity present- Primary Body mass index 37.0-37.9, adult Body Mass Index 37.0-37.9, adult Hypertension, unspecified type Hyperlipidemia, unspecified hyperlipidemia type NAFL (nonalcoholic fatty liver) Other chronic nonalcoholic liver disease Unspecified hypothyroidism Pre-diabetes Other abnormal glucose Medical marijuana use Encounter for long-term (current) use of other medications [facility] [place] [facility] Diagnosis Body mass index 37.0-37.9, adult- Primary Body Mass Index 37.0-37.9, adult Primary hypertension Unspecified essential hypertension Hyperlipidemia, unspecified hyperlipidemia type Non-alcoholic fatty liver disease Other chronic nonalcoholic liver disease Acquired hypothyroidism Unspecified hypothyroidism Pre-diabetes Other abnormal glucose Medical marijuana use Encounter for long-term (current) use of other medications Pre-op examination Preoperative examination, unspecified Hypokalemia due to excessive gastrointestinal loss of potassium Body mass index 37.0-37.9, adult Body Mass Index 37.0-37.9, adult Hypertension, unspecified type Hyperlipidemia, unspecified hyperlipidemia type NAFL (nonalcoholic fatty liver) Other chronic nonalcoholic liver disease Unspecified hypothyroidism Pre-diabetes Other abnormal glucose Medical marijuana use Encounter for long-term (current) use of other medications * Assessment & Plan Note - Sheila Nowak APRN.CNP - 03/13/2024 2:19 PM EDT Associated Problem(s): Class 2 obesity with body mass index (BMI) of 36.0 to 36.9 in adult See HPI, scheduled for surgery with Dr. Mcdermott March 20, 2024. * Assessment & Plan Note - Sheila Nowak APRN.CNP - 03/13/2024 2:18 PM EDT Associated Problem(s): Hypokalemia due to excessive gastrointestinal loss of potassium Patient states she is on prescribed potassium for hypokalemia. Instructed to continue as prescribed. -surgeon ordered a BMP to be checked today. Potassium Date Value Ref Range Status 02/06/2024 4.4 3.7 - 5.1 mmol/L Final 12/14/2023 4.3 3.7 - 5.1 mmol/L Final * Assessment & Plan Note - Loc Felix PA - 03/12/2024 1:39 PM EDT Associated Problem(s): Pre-op examination See note for medical conditions which may affect abbey-operative course that were addressed at today's visit. * Assessment & Plan Note - Loc Felix PA - 03/12/2024 1:38 PM EDT Associated Problem(s): Medical marijuana use Today at [facility] patient denies marijuana use * Assessment & Plan Note - Loc Felix PA - 03/12/2024 1:38 PM EDT Associated Problem(s): Pre-diabetes Procedure scheduled for 03/20/24 On metformin -hold day of surgery. Hemoglobin A1C (%) Date Value 12/14/2023 4.9 * Assessment & Plan Note - Loc Felix PA - 03/12/2024 1:37 PM EDT Associated Problem(s): Hypothyroidism Procedure scheduled for 03/20/24 On levothyroxine-continue as prescribed okay to take day of surgery with sip of water * Assessment & Plan Note - Loc Felix PA - 03/12/2024 1:37 PM EDT Associated Problem(s): Non-alcoholic fatty liver disease Procedure scheduled for 03/20/24 * Assessment & Plan Note - Loc Felix PA - 03/12/2024 1:37 PM EDT Associated Problem(s): HLD (hyperlipidemia) Procedure scheduled for 03/20/24. On tricor. * Assessment & Plan Note - Loc Felix PA - 03/12/2024 1:36 PM EDT Associated Problem(s): HTN (hypertension) Well-controlled per patient On amlodipine-continue as prescribed okay to take day of surgery with sip of water telmisartan -hold day of surgery * Assessment & Plan Note - Loc Felix PA - 03/12/2024 1:35 PM EDT Associated Problem(s): Body mass index 37.0-37.9, adult BMI around 38. Procedure scheduled for 03/20/24 [facility] [place] [facility]* Diagnosis Body mass index 37.0-37.9, adult- Primary Body Mass Index 37.0-37.9, adult Primary hypertension Unspecified essential hypertension Hyperlipidemia, unspecified hyperlipidemia type Non-alcoholic fatty liver disease Other chronic nonalcoholic liver disease Acquired hypothyroidism Unspecified hypothyroidism Pre-diabetes Other abnormal glucose Medical marijuana use Encounter for long-term (current) use of other medications Pre-op examination Preoperative examination, unspecified Hypokalemia due to excessive gastrointestinal loss of potassium S/P laparoscopic sleeve gastrectomy- Primary Bariatric surgery status Hypertension, unspecified type Hyperlipidemia, unspecified hyperlipidemia type NAFLD (nonalcoholic fatty liver disease) Other chronic nonalcoholic liver disease Pre-diabetes Other abnormal glucose Hypothyroidism, unspecified type Bipolar affective disorder, remission status unspecified (HCC) documented [facility] this [facility] [place] [facility]* Diagnosis Body mass index 37.0-37.9, adult- Primary Body Mass Index 37.0-37.9, adult Primary hypertension Unspecified essential hypertension Hyperlipidemia, unspecified hyperlipidemia type Non-alcoholic fatty liver disease Other chronic nonalcoholic liver disease Acquired hypothyroidism Unspecified hypothyroidism Pre-diabetes Other abnormal glucose Medical marijuana use Encounter for long-term (current) use of other medications Pre-op examination Preoperative examination, unspecified Hypokalemia due to excessive gastrointestinal loss of potassium Dietary counseling and surveillance- Primary Dietary surveillance and counseling documented [facility] this [facility] [place] [facility]* Diagnosis Body mass index 37.0-37.9, adult- Primary Body Mass Index 37.0-37.9, adult Primary hypertension Unspecified essential hypertension Hyperlipidemia, unspecified hyperlipidemia type Non-alcoholic fatty liver disease Other chronic nonalcoholic liver disease Acquired hypothyroidism Unspecified hypothyroidism Pre-diabetes Other abnormal glucose Medical marijuana use Encounter for long-term (current) use of other medications Pre-op examination Preoperative examination, unspecified Hypokalemia due to excessive gastrointestinal loss of potassium Encounter for screening mammogram for malignant neoplasm of breast- Primary Other screening mammogram [facility] [place] [facility] Diagnosis Body mass index 37.0-37.9, adult- Primary Body Mass Index 37.0-37.9, adult Primary hypertension Unspecified essential hypertension Hyperlipidemia, unspecified hyperlipidemia type Non-alcoholic fatty liver disease Other chronic nonalcoholic liver disease Acquired hypothyroidism Unspecified hypothyroidism Pre-diabetes Other abnormal glucose Medical marijuana use Encounter for long-term (current) use of other medications Pre-op examination Preoperative examination, unspecified Hypokalemia due to excessive gastrointestinal loss of potassium Eating disorder, unspecified type- Primary Bipolar affective disorder, remission status unspecified (HCC) documented in this encounter [facility] note* Diagnosis Body mass index 37.0-37.9, adult- Primary Body Mass Index 37.0-37.9, adult Primary hypertension Unspecified essential hypertension Hyperlipidemia, unspecified hyperlipidemia type Non-alcoholic fatty liver disease Other chronic nonalcoholic liver disease Acquired hypothyroidism Unspecified hypothyroidism Pre-diabetes Other abnormal glucose Medical marijuana use Encounter for long-term (current) use of other medications Pre-op examination Preoperative examination, unspecified Hypokalemia due to excessive gastrointestinal loss of potassium Encounter for screening mammogram for malignant neoplasm of breast Other screening mammogram documented in this encounter [facility] note* Diagnosis Body mass index 37.0-37.9, adult- Primary Body Mass Index 37.0-37.9, adult Primary hypertension Unspecified essential hypertension Hyperlipidemia, unspecified hyperlipidemia type Non-alcoholic fatty liver disease Other chronic nonalcoholic liver disease Acquired hypothyroidism Unspecified hypothyroidism Pre-diabetes Other abnormal glucose Medical marijuana use Encounter for long-term (current) use of other medications Pre-op examination Preoperative examination, unspecified Hypokalemia due to excessive gastrointestinal loss of potassium Nausea- Primary Nausea alone Class 2 obesity with body mass index (BMI) of 37.0 to 37.9 in adult, unspecified obesity type, unspecified whether serious comorbidity present [facility] Diagnosis Body mass index 37.0-37.9, adult- Primary Body Mass Index 37.0-37.9, adult Primary hypertension Unspecified essential hypertension Hyperlipidemia, unspecified hyperlipidemia type Non-alcoholic fatty liver disease Other chronic nonalcoholic liver disease Acquired hypothyroidism Unspecified hypothyroidism Pre-diabetes Other abnormal glucose Medical marijuana use Encounter for long-term (current) use of other medications Pre-op examination Preoperative examination, unspecified Hypokalemia due to excessive gastrointestinal loss of potassium S/P laparoscopic sleeve gastrectomy- Primary Bariatric surgery status Hypothyroidism, unspecified type Bipolar affective disorder, remission status unspecified (HCC) Prediabetes Other abnormal glucose documented in this encounter [facility] note* Diagnosis Body mass index 37.0-37.9, adult- Primary Body Mass Index 37.0-37.9, adult Primary hypertension Unspecified essential hypertension Hyperlipidemia, unspecified hyperlipidemia type Non-alcoholic fatty liver disease Other chronic nonalcoholic liver disease Acquired hypothyroidism Unspecified hypothyroidism Pre-diabetes Other abnormal glucose Medical marijuana use Encounter for long-term (current) use of other medications Pre-op examination Preoperative examination, unspecified Hypokalemia due to excessive gastrointestinal loss of potassium Dietary counseling and surveillance- Primary Dietary surveillance and counseling documented in this encounter [facility] note* Diagnosis Body mass index 37.0-37.9, adult- Primary Body Mass Index 37.0-37.9, adult Primary hypertension Unspecified essential hypertension Hyperlipidemia, unspecified hyperlipidemia type Non-alcoholic fatty liver disease Other chronic nonalcoholic liver disease Acquired hypothyroidism Unspecified hypothyroidism Pre-diabetes Other abnormal glucose Medical marijuana use Encounter for long-term (current) use of other medications Pre-op examination Preoperative examination, unspecified Hypokalemia due to excessive gastrointestinal loss of potassium Dietary counseling and surveillance- Primary Dietary surveillance and counseling documented in this encounter [facility] note* Diagnosis Body mass index 37.0-37.9, adult- Primary Body Mass Index 37.0-37.9, adult Primary hypertension Unspecified essential hypertension Hyperlipidemia, unspecified hyperlipidemia type Non-alcoholic fatty liver disease Other chronic nonalcoholic liver disease Acquired hypothyroidism Unspecified hypothyroidism Pre-diabetes Other abnormal glucose Medical marijuana use Encounter for long-term (current) use of other medications Pre-op examination Preoperative examination, unspecified Hypokalemia due to excessive gastrointestinal loss of potassium Eating disorder, unspecified type- Primary Bipolar affective disorder, remission status unspecified (HCC) [facility] [place] [facility]* Diagnosis Body mass index 37.0-37.9, adult- Primary Body Mass Index 37.0-37.9, adult Primary hypertension Unspecified essential hypertension Hyperlipidemia, unspecified hyperlipidemia type Non-alcoholic fatty liver disease Other chronic nonalcoholic liver disease Acquired hypothyroidism Unspecified hypothyroidism Pre-diabetes Other abnormal glucose Medical marijuana use Encounter for long-term (current) use of other medications Pre-op examination Preoperative examination, unspecified Hypokalemia due to excessive gastrointestinal loss of potassium Thrombocytopenia (HCC)- Primary Thrombocytopenia, unspecified [facility] [place] [facility]* Diagnosis Body mass index 37.0-37.9, adult- Primary Body Mass Index 37.0-37.9, adult Primary hypertension Unspecified essential hypertension Hyperlipidemia, unspecified hyperlipidemia type Non-alcoholic fatty liver disease Other chronic nonalcoholic liver disease Acquired hypothyroidism Unspecified hypothyroidism Pre-diabetes Other abnormal glucose Medical marijuana use Encounter for long-term (current) use of other medications Pre-op examination Preoperative examination, unspecified Hypokalemia due to excessive gastrointestinal loss of potassium S/P laparoscopic sleeve gastrectomy- Primary Bariatric surgery status Overweight Thrombocytopenia (HCC) Thrombocytopenia, unspecified documented in this encounter [facility] note* Diagnosis Body mass index 37.0-37.9, adult- Primary Body Mass Index 37.0-37.9, adult Primary hypertension Unspecified essential hypertension Hyperlipidemia, unspecified hyperlipidemia type Non-alcoholic fatty liver disease Other chronic nonalcoholic liver disease Acquired hypothyroidism Unspecified hypothyroidism Pre-diabetes Other abnormal glucose Medical marijuana use Encounter for long-term (current) use of other medications Pre-op examination Preoperative examination, unspecified Hypokalemia due to excessive gastrointestinal loss of potassium Overweight- Primary S/P laparoscopic sleeve gastrectomy Bariatric surgery status NAFLD (nonalcoholic fatty liver disease) Other chronic nonalcoholic liver disease Hypothyroidism, unspecified type Hypertension, unspecified type Hyperlipidemia, unspecified hyperlipidemia type documented in this encounter [facility] note* Diagnosis Body mass index 37.0-37.9, adult- Primary Body Mass Index 37.0-37.9, adult Primary hypertension Unspecified essential hypertension Hyperlipidemia, unspecified hyperlipidemia type Non-alcoholic fatty liver disease Other chronic nonalcoholic liver disease Acquired hypothyroidism Unspecified hypothyroidism Pre-diabetes Other abnormal glucose Medical marijuana use Encounter for long-term (current) use of other medications Pre-op examination Preoperative examination, unspecified Hypokalemia due to excessive gastrointestinal loss of potassium Dietary counseling and surveillance- Primary Dietary surveillance and counseling [facility]* Diagnosis Body mass index 37.0-37.9, adult- Primary Body Mass Index 37.0-37.9, adult Primary hypertension Unspecified essential hypertension Hyperlipidemia, unspecified hyperlipidemia type Non-alcoholic fatty liver disease Other chronic nonalcoholic liver disease Acquired hypothyroidism Unspecified hypothyroidism Pre-diabetes Other abnormal glucose Medical marijuana use Encounter for long-term (current) use of other medications Pre-op examination Preoperative examination, unspecified Hypokalemia due to excessive gastrointestinal loss of potassium S/P laparoscopic sleeve gastrectomy- Primary Bariatric surgery status Hypertension, unspecified type Hyperlipidemia, unspecified hyperlipidemia type NAFLD (nonalcoholic fatty liver disease) Other chronic nonalcoholic liver disease Pre-diabetes Other abnormal glucose Hypothyroidism, unspecified type Bipolar affective disorder, remission status unspecified (HCC) documented in this encounter [facility] for referral (narrative)* Diagnostic Procedure Only (Routine) - Pending Review Specialty Diagnoses / Procedures Referred By Binta villalobos Referred To Contact BR IMAGING Diagnoses Encounter for screening mammogram for malignant neoplasm of breast Procedures VINAY SCREENING W [place] SCREENING DIGITAL BREAST TOMOSYNTHESIS BI SCREENING MAMMOGRAPHY BI 2-VIEW BREAST INC Lore Camacho APRN.CNM [address] [place] [address] [facility] [address] [place] [address] Referral ID Status Reason Start Date Expiration Date Visits Requested Visits Authorized [id number] Pending Review Auto-Generat ed Referral 10/30/2021 11/29/2022 1 1 [facility] for referral (narrative)* Diagnostic Procedure Only (Routine) - Pending Review Specialty Diagnoses / Procedures Referred By Binta villalobos Referred To Contact US IMAGING Diagnoses Class 2 obesity with body mass index (BMI) of 35.0 to 35.9 in adult, unspecified obesity type, unspecified whether serious comorbidity present Procedures US ABD RIGHT UPPER QUADRANT US ABDOMINAL REAL TIME W/IMAGE LIMITED Rosalia Gaviria, LESLIE.TSO [address] [place] [address] [facility] [place], [place] [address] Referral ID Status Reason Start Date Expiration Date Visits Requested Visits Authorized [id number] Pending Review Auto-Generat ed Referral 10/05/2023 11/03/2024 1 1 * Consult, Test, Treat (Routine) - Authorized Specialty Diagnoses / Procedures Referred By Binta villalobos Referred To Contact Cardiology Diagnoses Class 2 obesity with body mass index (BMI) of 35.0 to 35.9 in adult, unspecified obesity type, unspecified whether serious comorbidity present Hypertension, unspecified type Hyperlipidemia, unspecified hyperlipidemia type Procedures CONSULT TO CARDIOLOGY OFFICE/OUTPATIENT [facility] 60 MINUTES Rosalia Gaviria, LESLIE.TS[address] [place] [address] Referral ID Status Reason Start Date Expiration Date Visits Requested Visits Authorized [id number] Authorized PCP Requested Referral 10/05/2023 01/03/2024 1 1 [facility] for referral (narrative)* Diagnostic Procedure Only (Routine) - Pending Review Specialty Diagnoses / Procedures Referred By Binta villalobos Referred To Contact [facility] Diagnoses Primary hypertension Class 2 severe obesity due to excess calories with serious comorbidity and body mass index (BMI) of 36.0 to 36.9 in adult (HCC) Procedures HOME SLEEP APNEA TEST (HSAT) SLEEP STD AIRFLOW HRT RATE&O2 SAT EFFORT UNATT Frantz Orellana MD [address] [place] [address] Neurological [place] [id number] Referral ID Status Reason Start Date Expiration Date Visits Requested Visits Authorized [id number] Pending Review Auto-Generat ed Referral 12/06/2023 12/05/2024 1 1 [facility] for referral (narrative)* Diagnostic Procedure Only (Routine) - Authorized Specialty Diagnoses / Procedures Referred By Contac t Referred To Contact XR IMAGING Diagnoses Class 2 severe obesity with serious comorbidity and body mass index (BMI) of 39.0 to 39.9 in adult, unspecified obesity type (HCC) Procedures XR UPPER GI ROUTINE DOUBLE CONTRAST/AIR RADIOLOGIC EXAM [facility] GI TR DOUBLE CONTRAST STUDY Abigail Mcdermott MD 1 [facility] [employer] [address] [place] [address] [place] [address] Referral ID Status Reason Start Date Expiration Date Visits Requested Visits Authorized [id number] Authorized Auto-Generat ed Referral 12/07/2023 01/05/2025 1 1 [facility] for referral (narrative)* Diagnostic Procedure Only (Routine) - Closed Specialty Diagnoses / Procedures Referred By Contac t Referred To Contact XR IMAGING Diagnoses Class 2 severe obesity with serious comorbidity and body mass index (BMI) of 39.0 to 39.9 in adult, unspecified obesity type (HCC) Procedures XR UPPER GI ROUTINE DOUBLE CONTRAST/AIR RADIOLOGIC EXAM [facility] DOUBLE CONTRAST STUDY Abigail Mcdermott MD 1 [facility] [address] [address] [place] [address] Referral ID Status Reason Start Date Expiration Date V isits Requested Visits Authorized [id number] Closed Auto-Generate d Referral 12/07/2023 01/05/2025 1 1 [facility] for referral (narrative)* Diagnostic Procedure Only (Routine) - Authorized Specialty Diagnoses / Procedures Referred By Contac t Referred To Contact BR IMAGING Diagnoses Encounter for screening mammogram for malignant neoplasm of breast Procedures VINAY SCREENING SCREENING MAMMOGRAPHY BI 2-VIEW BREAST INC Lore Camacho APRN.ADALGISA [address] [address] [facility] [address] [facility] [place] [address] Referral ID Status Reason Start Date Expiration Date Visits Requested Visits Authorized [id number] Authorized Auto-Generat ed Referral 04/19/2024 05/19/2025 1 1 [facility] for visit Narrative* Diagnostic Procedure Only (Routine) - Closed Specialty Diagnoses / Procedures Referred By Contac t Referred To Contact US IMAGING Diagnoses Class 2 obesity with body mass index (BMI) of 35.0 to 35.9 in adult, unspecified obesity type, unspecified whether serious comorbidity present Procedures US ABD RIGHT UPPER QUADRANT US ABDOMINAL REAL TIME W/IMAGE LIMITED Rosalia Gaviria, TELLERS SUPERVISOR.[address] [place] [address] [place] [address] Referral ID Status Reason Start Date Expiration Date V isits Requested Visits Authorized [id number] Closed Auto-Generate d Referral 10/05/2023 11/03/2024 1 1 [facility] for visit Narrative* Diagnostic Procedure Only (Routine) - Closed Specialty Diagnoses / Procedures Referred By Contac t Referred To Contact XR IMAGING Diagnoses Class 2 severe obesity with serious comorbidity and body mass index (BMI) of 39.0 to 39.9 in adult, unspecified obesity type (HCC) Procedures XR UPPER GI ROUTINE DOUBLE CONTRAST/AIR RADIOLOGIC EXAM UPR GI TRC DOUBLE CONTRAST STUDY Abigail Mcdermott MD 1 [facility] [address] [place] [address] [place] [address] Referral ID Status Reason Start Date Expiration Date V isits Requested Visits Authorized [id number] Closed Auto-Generate d Referral 12/07/2023 01/05/2025 1 1 [facility] for visit Narrative* Diagnostic Procedure Only (Routine) - Closed Specialty Diagnoses / Procedures Referred By Contac t Referred To Contact BR IMAG[facility] Diagnoses Encounter for screening mammogram for malignant neoplasm of breast Procedures VINAY SCREENING SCREENING MAMMOGRAPHY BI 2-VIEW BREAST INC Lore Camacho APRN[address] [place] [address] [facility] [address] [place] [address] Referral ID Status Reason Start Date Expiration Date V isits Requested Visits Authorized [id number] Closed Auto-Generate d Referral 04/19/2024 05/19/2025 1 1 [facility] Family History No Family History Records Found Relationship Condition Age at Onset Recorded Date/T neisha father Cardiac disease Unknown mother Malignant neoplasm Unknown Advance Directives No Advanced Directives Records Found Advance Directive Response Recorded Date/ Time Living Will No July 29, 022 1:56pm Power of Dental Technician No July 29, 2021 1:56pm Advance Directive Response Recorded Date/ Time Living Will No December 13, 2021 1 1:30am Power of Dental Technician No December 13, 2021 11:30am Date Activated Date Inactivated Comments 03/19/2024 7:01 PM 03/20/2024 9:23 PM Question Answer Comments Full Code Order Discussed With: Patient Date Activated Date Inactivated Comments 03/19/2024 7:01 PM 03/20/2024 9:23 PM Question Answer Comments Full Code Order Discussed With: Patient Reason for Referral Specialty Diagnoses / Procedures Referred By Contac t Referred To Contact Endocrinology Diagnoses Elevated TSH Procedures CONSULT TO ENDOCRINOLOGY OFFICE/OUTPATIENT ON LICENSE OF [facility] MDM 60-74 MINUTES Roosevelt Olson, TELLERS SUPERVISOR.TSO [address] [address] Referral ID Status Reason Start Date Expiration Date Visits Requested Visits Authorized [id number] Authorized PCP Requested Referral 11/02/2021 11/02/2022 1 1 Specialty Diagnoses / Procedures Referred By Contac t Referred To Contact Diagnoses Body mass index 37.0-37.9, adult Hypertension, unspecified type Hyperlipidemia, unspecified hyperlipidemia type NAFL (nonalcoholic fatty liver) Unspecified hypothyroidism Pre-diabetes Medical marijuana use Procedures CONSULT TO PRE-SURGICAL TESTING (AG) Abigail Mcdermott MD 1 [facility] [address] [place] [address] Referral ID Status Reason Start Date Expiration Date Visits Requested Visits Authorized [id number] Ref Not Required PCP Requested Referral 02/17/2024 05/17/2024 1 1 Chief Complaint and Reason for Visit Chief Complaint NEED ORDER F/U (LIVER BX) DIDN'T WANT TO SEE RT EORDER- 2 ORDERS/ 2 DRS 8 WK FU E ORDER vomiting CC DR ARELIS JONES EORDER RENAL INJURY Reason for Visit Alcoholic hepatitis Diarrhea Fatty liver due to alcoholism Alcoholic hepatitis Diarrhea Fatty liver due to alcoholism Obesity (BMI 30-39.9) Chief Complaint 8 WK FU E ORDER vomiting CC DR ARELIS JONES EORDER RENAL INJURY EORDER Reason for Visit Alcoholic hepatitis Diarrhea Fatty liver due to alcoholism Obesity (BMI 30-39.9) Summary Purpose Additional Source Comments Goals (unrecognized section and content) Goals may be documented in a n alternate sectionGoals may be documented in an alternate sectionGoals may be documented in an alternate sectionGoals may be documented in an alternate sectionGoals may be documented in an alternate sectionGoals may be documented in an alternate sectionGoals may be documented in an alternate sectionGoals may be documented in an alternate section Source Comments (unrecognize d section and content) In the event this informatio n is protected by the Federal Confidentiality of Alcohol and Drug Abuse Patient Records regulations: The Federal rules restrict any use of the information to criminally investigate or prosecute any alcohol or drug abuse patient.[facility] the event this information is protected by the Federal Confidentiality of Alcohol and Drug Abuse Patient Records regulations: The Federal rules restrict any use of the information to criminally investigate or prosecute any alcohol or drug abuse patient.[facility] the event this information is protected by the Federal Confidentiality of Alcohol and Drug Abuse Patient Records regulations: The Federal rules restrict any use of the information to criminally investigate or prosecute any alcohol or drug abuse patient.[facility] the event this information is protected by the Federal Confidentiality of Alcohol and Drug Abuse Patient Records regulations: The Federal rules restrict any use of the information to criminally investigate or prosecute any alcohol or drug abuse patient.[facility] the event this information is protected by the Federal Confidentiality of Alcohol and Drug Abuse Patient Records regulations: The Federal rules restrict any use of the information to criminally investigate or prosecute any alcohol or drug abuse patient.[facility] the event this information is protected by the Federal Confidentiality of Alcohol and Drug Abuse Patient Records regulations: The Federal rules restrict any use of the information to criminally investigate or prosecute any alcohol or drug abuse patient.[facility] the event this information is protected by the Federal Confidentiality of Alcohol and Drug Abuse Patient Records regulations: The Federal rules restrict any use of the information to criminally investigate or prosecute any alcohol or drug abuse patient.[facility] HospitalIn the event this information is protected by the Federal Confidentiality of Alcohol and Drug Abuse Patient Records regulations: The Federal rules restrict any use of the information to criminally investigate or prosecute any alcohol or drug abuse patient.[facility] HospitalIn the event this information is protected by the Federal Confidentiality of Alcohol and Drug Abuse Patient Records regulations: The Federal rules restrict any use of the information to criminally investigate or prosecute any alcohol or drug abuse patient.[facility] HospitalIn the event this information is protected by the Federal Confidentiality of Alcohol and Drug Abuse Patient Records regulations: The Federal rules restrict any use of the information to criminally investigate or prosecute any alcohol or drug abuse patient.[facility] HospitalIn the event this information is protected by the Federal Confidentiality of Alcohol and Drug Abuse Patient Records regulations: The Federal rules restrict any use of the information to criminally investigate or prosecute any alcohol or drug abuse patient.[facility] the event this information is protected by the Federal Confidentiality of Alcohol and Drug Abuse Patient Records regulations: The Federal rules restrict any use of the information to criminally investigate or prosecute any alcohol or drug abuse patient.[facility] HospitalIn the event this information is protected by the Federal Confidentiality of Alcohol and Drug Abuse Patient Records regulations: The Federal rules restrict any use of the information to criminally investigate or prosecute any alcohol or drug abuse patient.[facility] HospitalIn the event this information is protected by the Federal Confidentiality of Alcohol and Drug Abuse Patient Records regulations: The Federal rules restrict any use of the information to criminally investigate or prosecute any alcohol or drug abuse patient.[facility] HospitalIn the event this information is protected by the Federal Confidentiality of Alcohol and Drug Abuse Patient Records regulations: The Federal rules restrict any use of the information to criminally investigate or prosecute any alcohol or drug abuse patient.[facility] HospitalIn the event this information is protected by the Federal Confidentiality of Alcohol and Drug Abuse Patient Records regulations: The Federal rules restrict any use of the information to criminally investigate or prosecute any alcohol or drug abuse patient.[facility] HospitalIn the event this information is protected by the Federal Confidentiality of Alcohol and Drug Abuse Patient Records regulations: The Federal rules restrict any use of the information to criminally investigate or prosecute any alcohol or drug abuse patient.[facility] HospitalIn the event this information is protected by the Federal Confidentiality of Alcohol and Drug Abuse Patient Records regulations: The Federal rules restrict any use of the information to criminally investigate or prosecute any alcohol or drug abuse patient.[facility] HospitalIn the event this information is protected by the Federal Confidentiality of Alcohol and Drug Abuse Patient Records regulations: The Federal rules restrict any use of the information to criminally investigate or prosecute any alcohol or drug abuse patient.[facility] HospitalIn the event this information is protected by the Federal Confidentiality of Alcohol and Drug Abuse Patient Records regulations: The Federal rules restrict any use of the information to criminally investigate or prosecute any alcohol or drug abuse patient.[facility] HospitalIn the event this information is protected by the Federal Confidentiality of Alcohol and Drug Abuse Patient Records regulations: The Federal rules restrict any use of the information to criminally investigate or prosecute any alcohol or drug abuse patient.[facility] HospitalIn the event this information is protected by the Federal Confidentiality of Alcohol and Drug Abuse Patient Records regulations: The Federal rules restrict any use of the information to criminally investigate or prosecute any alcohol or drug abuse patient.[facility] HospitalIn the event this information is protected by the Federal Confidentiality of Alcohol and Drug Abuse Patient Records regulations: The Federal rules restrict any use of the information to criminally investigate or prosecute any alcohol or drug abuse patient.[facility] HospitalIn the event this information is protected by the Federal Confidentiality of Alcohol and Drug Abuse Patient Records regulations: The Federal rules restrict any use of the information to criminally investigate or prosecute any alcohol or drug abuse patient.[facility] HospitalIn the event this information is protected by the Federal Confidentiality of Alcohol and Drug Abuse Patient Records regulations: The Federal rules restrict any use of the information to criminally investigate or prosecute any alcohol or drug abuse patient.[facility] HospitalIn the event this information is protected by the Federal Confidentiality of Alcohol and Drug Abuse Patient Records regulations: The Federal rules restrict any use of the information to criminally investigate or prosecute any alcohol or drug abuse patient.[facility] HospitalIn the event this information is protected by the Federal Confidentiality of Alcohol and Drug Abuse Patient Records regulations: The Federal rules restrict any use of the information to criminally investigate or prosecute any alcohol or drug abuse patient.[facility] HospitalIn the event this information is protected by the Federal Confidentiality of Alcohol and Drug Abuse Patient Records regulations: The Federal rules restrict any use of the information to criminally investigate or prosecute any alcohol or drug abuse patient.[facility] HospitalIn the event this information is protected by the Federal Confidentiality of Alcohol and Drug Abuse Patient Records regulations: The Federal rules restrict any use of the information to criminally investigate or prosecute any alcohol or drug abuse patient.[facility] HospitalIn the event this information is protected by the Federal Confidentiality of Alcohol and Drug Abuse Patient Records regulations: The Federal rules restrict any use of the information to criminally investigate or prosecute any alcohol or drug abuse patient.[facility] HospitalIn the event this information is protected by the Federal Confidentiality of Alcohol and Drug Abuse Patient Records regulations: The Federal rules restrict any use of the information to criminally investigate or prosecute any alcohol or drug abuse patient.[facility] HospitalIn the event this information is protected by the Federal Confidentiality of Alcohol and Drug Abuse Patient Records regulations: The Federal rules restrict any use of the information to criminally investigate or prosecute any alcohol or drug abuse patient.[facility] HospitalIn the event this information is protected by the Federal Confidentiality of Alcohol and Drug Abuse Patient Records regulations: The Federal rules restrict any use of the information to criminally investigate or prosecute any alcohol or drug abuse patient.[facility] HospitalIn the event this information is protected by the Federal Confidentiality of Alcohol and Drug Abuse Patient Records regulations: The Federal rules restrict any use of the information to criminally investigate or prosecute any alcohol or drug abuse patient.[facility] HospitalIn the event this information is protected by the Federal Confidentiality of Alcohol and Drug Abuse Patient Records regulations: The Federal rules restrict any use of the information to criminally investigate or prosecute any alcohol or drug abuse patient.[facility] HospitalIn the event this information is protected by the Federal Confidentiality of Alcohol and Drug Abuse Patient Records regulations: The Federal rules restrict any use of the information to criminally investigate or prosecute any alcohol or drug abuse patient.[facility] HospitalIn the event this information is protected by the Federal Confidentiality of Alcohol and Drug Abuse Patient Records regulations: The Federal rules restrict any use of the information to criminally investigate or prosecute any alcohol or drug abuse patient.[facility] HospitalIn the event this information is protected by the Federal Confidentiality of Alcohol and Drug Abuse Patient Records regulations: The Federal rules restrict any use of the information to criminally investigate or prosecute any alcohol or drug abuse patient.[facility] HospitalIn the event this information is protected by the Federal Confidentiality of Alcohol and Drug Abuse Patient Records regulations: The Federal rules restrict any use of the information to criminally investigate or prosecute any alcohol or drug abuse patient.[facility] HospitalIn the event this information is protected by the Federal Confidentiality of Alcohol and Drug Abuse Patient Records regulations: The Federal rules restrict any use of the information to criminally investigate or prosecute any alcohol or drug abuse patient.[facility] HospitalIn the event this information is protected by the Federal Confidentiality of Alcohol and Drug Abuse Patient Records regulations: The Federal rules restrict any use of the information to criminally investigate or prosecute any alcohol or drug abuse patient.[facility] HospitalIn the event this information is protected by the Federal Confidentiality of Alcohol and Drug Abuse Patient Records regulations: The Federal rules restrict any use of the information to criminally investigate or prosecute any alcohol or drug abuse patient.[facility] HospitalIn the event this information is protected by the Federal Confidentiality of Alcohol and Drug Abuse Patient Records regulations: The Federal rules restrict any use of the information to criminally investigate or prosecute any alcohol or drug abuse patient.[facility] HospitalIn the event this information is protected by the Federal Confidentiality of Alcohol and Drug Abuse Patient Records regulations: The Federal rules restrict any use of the information to criminally investigate or prosecute any alcohol or drug abuse patient.[facility] HospitalIn the event this information is protected by the Federal Confidentiality of Alcohol and Drug Abuse Patient Records regulations: The Federal rules restrict any use of the information to criminally investigate or prosecute any alcohol or drug abuse patient.[facility] HospitalIn the event this information is protected by the Federal Confidentiality of Alcohol and Drug Abuse Patient Records regulations: The Federal rules restrict any use of the information to criminally investigate or prosecute any alcohol or drug abuse patient.[facility] HospitalIn the event this information is protected by the Federal Confidentiality of Alcohol and Drug Abuse Patient Records regulations: The Federal rules restrict any use of the information to criminally investigate or prosecute any alcohol or drug abuse patient.[facility] HospitalIn the event this information is protected by the Federal Confidentiality of Alcohol and Drug Abuse Patient Records regulations: The Federal rules restrict any use of the information to criminally investigate or prosecute any alcohol or drug abuse patient.[facility] HospitalIn the event this information is protected by the Federal Confidentiality of Alcohol and Drug Abuse Patient Records regulations: The Federal rules restrict any use of the information to criminally investigate or prosecute any alcohol or drug abuse patient.[facility] HospitalIn the event this information is protected by the Federal Confidentiality of Alcohol and Drug Abuse Patient Records regulations: The Federal rules restrict any use of the information to criminally investigate or prosecute any alcohol or drug abuse patient.[facility] HospitalIn the event this information is protected by the Federal Confidentiality of Alcohol and Drug Abuse Patient Records regulations: The Federal rules restrict any use of the information to criminally investigate or prosecute any alcohol or drug abuse patient.[facility] HospitalIn the event this information is protected by the Federal Confidentiality of Alcohol and Drug Abuse Patient Records regulations: The Federal rules restrict any use of the information to criminally investigate or prosecute any alcohol or drug abuse patient.[facility] HospitalIn the event this information is protected by the Federal Confidentiality of Alcohol and Drug Abuse Patient Records regulations: The Federal rules restrict any use of the information to criminally investigate or prosecute any alcohol or drug abuse patient.[facility] HospitalIn the event this information is protected by the Federal Confidentiality of Alcohol and Drug Abuse Patient Records regulations: The Federal rules restrict any use of the information to criminally investigate or prosecute any alcohol or drug abuse patient.[facility] HospitalIn the event this information is protected by the Federal Confidentiality of Alcohol and Drug Abuse Patient Records regulations: The Federal rules restrict any use of the information to criminally investigate or prosecute any alcohol or drug abuse patient.[facility] HospitalIn the event this information is protected by the Federal Confidentiality of Alcohol and Drug Abuse Patient Records regulations: The Federal rules restrict any use of the information to criminally investigate or prosecute any alcohol or drug abuse patient.[facility] HospitalIn the event this information is protected by the Federal Confidentiality of Alcohol and Drug Abuse Patient Records regulations: The Federal rules restrict any use of the information to criminally investigate or prosecute any alcohol or drug abuse patient.[facility] HospitalIn the event this information is protected by the Federal Confidentiality of Alcohol and Drug Abuse Patient Records regulations: The Federal rules restrict any use of the information to criminally investigate or prosecute any alcohol or drug abuse patient.[facility] HospitalIn the event this information is protected by the Federal Confidentiality of Alcohol and Drug Abuse Patient Records regulations: The Federal rules restrict any use of the information to criminally investigate or prosecute any alcohol or drug abuse patient.[facility] HospitalIn the event this information is protected by the Federal Confidentiality of Alcohol and Drug Abuse Patient Records regulations: The Federal rules restrict any use of the information to criminally investigate or prosecute any alcohol or drug abuse patient.[facility] HospitalIn the event this information is protected by the Federal Confidentiality of Alcohol and Drug Abuse Patient Records regulations: The Federal rules restrict any use of the information to criminally investigate or prosecute any alcohol or drug abuse patient.[facility] the event this information is protected by the Federal Confidentiality of Alcohol and Drug Abuse Patient Records regulations: The Federal rules restrict any use of the information to criminally investigate or prosecute any alcohol or drug abuse patient.[facility] HospitalIn the event this information is protected by the Federal Confidentiality of Alcohol and Drug Abuse Patient Records regulations: The Federal rules restrict any use of the information to criminally investigate or prosecute any alcohol or drug abuse patient.[facility] HospitalIn the event this information is protected by the Federal Confidentiality of Alcohol and Drug Abuse Patient Records regulations: The Federal rules restrict any use of the information to criminally investigate or prosecute any alcohol or drug abuse patient.[facility] HospitalIn the event this information is protected by the Federal Confidentiality of Alcohol and Drug Abuse Patient Records regulations: The Federal rules restrict any use of the information to criminally investigate or prosecute any alcohol or drug abuse patient.[facility] HospitalIn the event this information is protected by the Federal Confidentiality of Alcohol and Drug Abuse Patient Records regulations: The Federal rules restrict any use of the information to criminally investigate or prosecute any alcohol or drug abuse patient.[facility] HospitalIn the event this information is protected by the Federal Confidentiality of Alcohol and Drug Abuse Patient Records regulations: The Federal rules restrict any use of the information to criminally investigate or prosecute any alcohol or drug abuse patient.[facility] HospitalIn the event this information is protected by the Federal Confidentiality of Alcohol and Drug Abuse Patient Records regulations: The Federal rules restrict any use of the information to criminally investigate or prosecute any alcohol or drug abuse patient.[facility] HospitalIn the event this information is protected by the Federal Confidentiality of Alcohol and Drug Abuse Patient Records regulations: The Federal rules restrict any use of the information to criminally investigate or prosecute any alcohol or drug abuse patient.[facility] HospitalIn the event this information is protected by the Federal Confidentiality of Alcohol and Drug Abuse Patient Records regulations: The Federal rules restrict any use of the information to criminally investigate or prosecute any alcohol or drug abuse patient.[facility] HospitalIn the event this information is protected by the Federal Confidentiality of Alcohol and Drug Abuse Patient Records regulations: The Federal rules restrict any use of the information to criminally investigate or prosecute any alcohol or drug abuse patient.[facility] HospitalIn the event this information is protected by the Federal Confidentiality of Alcohol and Drug Abuse Patient Records regulations: The Federal rules restrict any use of the information to criminally investigate or prosecute any alcohol or drug abuse patient.[facility] HospitalIn the event this information is protected by the Federal Confidentiality of Alcohol and Drug Abuse Patient Records regulations: The Federal rules restrict any use of the information to criminally investigate or prosecute any alcohol or drug abuse patient.[facility] HospitalIn the event this information is protected by the Federal Confidentiality of Alcohol and Drug Abuse Patient Records regulations: The Federal rules restrict any use of the information to criminally investigate or prosecute any alcohol or drug abuse patient.[facility] HospitalIn the event this information is protected by the Federal Confidentiality of Alcohol and Drug Abuse Patient Records regulations: The Federal rules restrict any use of the information to criminally investigate or prosecute any alcohol or drug abuse patient.[facility] HospitalIn the event this information is protected by the Federal Confidentiality of Alcohol and Drug Abuse Patient Records regulations: The Federal rules restrict any use of the information to criminally investigate or prosecute any alcohol or drug abuse patient.[facility] HospitalIn the event this information is protected by the Federal Confidentiality of Alcohol and Drug Abuse Patient Records regulations: The Federal rules restrict any use of the information to criminally investigate or prosecute any alcohol or drug abuse patient.[facility] Reason for Visit (unrecogniz ed section and content) Reason Comments Results Reason Onset Date Comments Yearly Exam 10/30/2021 Reason Comments New Patient virtual Reason Comments Orders Reason Comments Question Reason Comments Refill Request Reason Comments asking for a refill of Letrozole, no per iod since february Reason Comments Sore Throat Sore throat x 3 days Reason Comments External Referrals/resources Reason Comments Patient Update Benefits update- pat jaquan Mckeon Reason Comments Patient Update Reason Comments Bariatric Psychology Evaluation Reason Comments New Patient Reason Comments Patient Update Appointment EXCLUDED BARIATRIC O N PLAN Reason Comments Established Patient Reason Comments Appointment Reason Comments Obesity Reason Comments Patient Update Bariatric Benefits I nvestigation Reason Comments New Patient Reason Comments Nutrition Counseling Reason Comments Bariatric Psychology Follow Up Bariatric Psychology follow up Reason Comments Cardiology Follow Up Cardiac risk assess ment Specialty Diagnoses / Procedures Referred By Binta t Referred To Contact Cardiology Diagnoses Class 2 obesity with body mass index (BMI) of 35.0 to 35.9 in adult, unspecified obesity type, unspecified whether serious comorbidity present Hypertension, unspecified type Hyperlipidemia, unspecified hyperlipidemia type Procedures CONSULT TO CARDIOLOGY OFFICE/OUTPATIENT NEW HIGH MDM 60 MINUTES Rosalia Gaviria, [employer].[address] [place] [address] Referral ID Status Reason Start Date Expiration Date V isits Requested Visits Authorized [id number] Closed PCP Requested Referral 10/05/2023 01/03/2024 1 1 Reason Comments BSTOP brochure Reason Comments Medical Clearance Reason Comments Patient Education Reason Comments Surgical Followup Reason Comments Post Op Reason Comments Post Op Follow Up Reason Comments Medication Problem Reason Comments Bariatric Psychology Post Op Follow Up Bariatric Psychology Follow Up Reason Comments Obesity Reason Comments Bariatric Psychology Follow Up Reason Comments Appointment LVM & MCM to r/s 03/2025 with Claudia. Care Teams (unrecognized sec tion and content) Concert Promoter Relationship Specialty Start Date End Date Karina Gonzalez MD [address] [place] [address] PCP - General Family Practice 10/28/18 Concert Promoter Relationship Specialty Start Date End Date Karina Gonzalez MD [address] [facility] [place] [address] PCP - General Family Practice 10/28/18 Concert Promoter Relationship Specialty Start Date End Date Karina Gonzalez MD [address] [facility] [place] [address] PCP - General Family Practice 10/28/18 Concert Promoter Relationship Specialty Start Date End Date Karina Gonzalez MD [address] [facility] [place] [address] PCP - General Family Practice 10/28/18 Concert Promoter Relationship Specialty Start Date End Date Karina Gonzalez MD [address] [facility] [place] [address] PCP - General Family Practice 10/28/18 Concert Promoter Relationship Specialty Start Date End Date Karina Gonzalez MD [address] [facility] [place] [address] PCP - General Family Practice 10/28/18 Concert Promoter Relationship Specialty Start Date End Date Karina Gonzalez MD [address] [facility] [place] [address] PCP - General Family Practice 10/28/18 Concert Promoter Relationship Specialty Start Date End Date Karina Gonzalez MD [address] [facility] [place] [address] PCP - General Family Practice 10/28/18 Concert Promoter Relationship Specialty Start Date End Date Karina Gonzalez MD [address] [facility] [place] [address] PCP - General Family Medicine 10/28/18 Concert Promoter Relationship Specialty Start Date End Date Karina Gonzalez MD [address] [facility] [place] [address] PCP - General Family Medicine 10/28/18 Concert Promoter Relationship Specialty Start Date End Date Karina Gonzalez MD [address] [facility] [place] [address] PCP - General Family Medicine 10/28/18 Concert Promoter Relationship Specialty Start Date End Date Karina Gonzalez MD [address] [facility] [place] [address] PCP - General Family Medicine 10/28/18 Concert Promoter Relationship Specialty Start Date End Date Karina Gonzalez MD [address] [facility] [place] [address] PCP - General Family Medicine 10/28/18 Concert Promoter Relationship Specialty Start Date End Date Karina Gonzalez MD [address] [facility] [place] [address] PCP - General Family Medicine 10/28/18 Concert Promoter Relationship Specialty Start Date End Date Karina Gonzalez MD [address] [facility] [place] [address] PCP - General Family Medicine 10/28/18 Concert Promoter Relationship Specialty Start Date End Date Karina Gonzalez MD [address] [facility] [address] PCP - General Family Medicine 10/28/18 Concert Promoter Relationship Specialty Start Date End Date Karina Gonzalez MD [address] [place] [address] PCP - General Family Medicine 10/28/18 Concert Promoter Relationship Specialty Start Date End Date Karina Gonzalez MD [address] [facility] [place] [address] PCP - General Family Medicine 10/28/18 Concert Promoter Relationship Specialty Start Date End Date Karina Gonzalez MD [address] [facility] [place] [address] PCP - General Family Medicine 10/28/18 Concert Promoter Relationship Specialty Start Date End Date Karina Gonzalez MD [address] [facility] [place] [address] PCP - General Family Medicine 10/28/18 Concert Promoter Relationship Specialty Start Date End Date Karina Gonzalez MD [address] [facility] [place] [address] PCP - General Family Medicine 10/28/18 Concert Promoter Relationship Specialty Start Date End Date Karina Gonzalez MD [address] [facility] [place] [address] PCP - General Family Medicine 10/28/18 Concert Promoter Relationship Specialty Start Date End Date Karina Gonzalez MD [address] [facility] [place] [address] PCP - General Family Medicine 10/28/18 Concert Promoter Relationship Specialty Start Date End Date Karina Gonzalez MD [address] [facility] [place] [address] PCP - General Family Medicine 10/28/18 Concert Promoter Relationship Specialty Start Date End Date Karina Gonzalez MD [address] [place] [address] PCP - General Family Medicine 10/28/18 Concert Promoter Relationship Specialty Start Date End Date Karina Gonzalez MD [address] [place] [address] PCP - General Family Medicine 10/28/18 Concert Promoter Relationship Specialty Start Date End Date Karina Gonzalez MD [address] [place] [address] PCP - General Family Medicine 10/28/18 Concert Promoter Relationship Specialty Start Date End Date Karina Gonzalez MD [address] [facility] [place] [address] PCP - General Family Medicine 10/28/18 Concert Promoter Relationship Specialty Start Date End Date Karina Gonzalez MD [address] [place] [address] PCP - General Family Medicine 10/28/18 Concert Promoter Relationship Specialty Start Date End Date Karina Gonzalez MD [address] [place] [address] PCP - General Family Medicine 10/28/18 Concert Promoter Relationship Specialty Start Date End Date Karina Gonzalez MD [address] [place] [address] PCP - General Family Medicine 10/28/18 Concert Promoter Relationship Specialty Start Date End Date Karina Gonzalez MD [address] [place] [address] PCP - General Family Medicine 10/28/18 Concert Promoter Relationship Specialty Start Date End Date Karina Gonzalez MD [address] [place] [address] PCP - General Family Medicine 10/28/18 Concert Promoter Relationship Specialty Start Date End Date Karina Gonzalez MD [address] [facility] [place] [address] PCP - General Family Medicine 10/28/18 Concert Promoter Relationship Specialty Start Date End Date Karina Gonzalez MD [address] [facility] [place] [address] PCP - General Family Medicine 10/28/18 Concert Promoter Relationship Specialty Start Date End Date Karina Gonzalez MD [address] [facility] [place] [address] PCP - General Family Medicine 10/28/18 Concert Promoter Relationship Specialty Start Date End Date Karina Gonzalez MD [address] [facility] [place] [address] PCP - General Family Medicine 10/28/18 Concert Promoter Relationship Specialty Start Date End Date Karina Gonzalez MD [address] [place] [address] PCP - General Family Medicine 10/28/18 Concert Promoter Relationship Specialty Start Date End Date Karina Gonzalez MD [address] [place] [address] PCP - General Family Medicine 10/28/18 Concert Promoter Relationship Specialty Start Date End Date Karina Gonzalez MD [address] [place] [address] PCP - General Family Medicine 10/28/18 Concert Promoter Relationship Specialty Start Date End Date Karina Gonzalez MD [address] [place] [address] PCP - General Family Medicine 10/28/18 Concert Promoter Relationship Specialty Start Date End Date Karina Gonzalez MD [address] [place] [address] PCP - General Family Medicine 10/28/18 Concert Promoter Relationship Specialty Start Date End Date Karina Gonzalez MD [address] [facility] [place] [address] PCP - General Family Medicine 10/28/18 Concert Promoter Relationship Specialty Start Date End Date Karina Gonzalez MD [address] [facility] [place] [address] PCP - General Family Medicine 10/28/18 Concert Promoter Relationship Specialty Start Date End Date Karina Gonzalez MD [address] [facility] [place] [address] PCP - General Family Medicine 10/28/18 Concert Promoter Relationship Specialty Start Date End Date Karina Gonzalez MD [address] [place] [address] PCP - General Family Medicine 10/28/18 Concert Promoter Relationship Specialty Start Date End Date Karina Gonzalez MD [address] [place] [address] PCP - General Family Medicine 10/28/18 Concert Promoter Relationship Specialty Start Date End Date Karina Gonzalez MD [address] [place] [address] PCP - General Family Medicine 10/28/18 Concert Promoter Relationship Specialty Start Date End Date Karina Gonzalez MD [address] [place] [address] PCP - General Family Medicine 10/28/18 Concert Promoter Relationship Specialty Start Date End Date Karina Gonzalez MD [address] [place] [address] PCP - General Family Medicine 10/28/18 Concert Promoter Relationship Specialty Start Date End Date Karina Gonzalez MD [address] [place] [address] PCP - General Family Medicine 10/28/18 Concert Promoter Relationship Specialty Start Date End Date Karina Gonzalez MD [address] [place] [address] PCP - General Family Medicine 10/28/18 Concert Promoter Relationship Specialty Start Date End Date Karina Gonzalez MD [address] [place] [address] PCP - General Family Medicine 10/28/18 Concert Promoter Relationship Specialty Start Date End Date Karina Gonzalez MD [address] [place] [address] PCP - General Family Medicine 10/28/18 Concert Promoter Relationship Specialty Start Date End Date Karina Gonzalez MD [address] [place] [address] PCP - General Family Medicine 10/28/18 Concert Promoter Relationship Specialty Start Date End Date Karina Gonzalez MD [address] [place] [address] PCP - General Family Medicine 10/28/18 INFORMATION SOURCE (unrecogn ized section and content) DATE CREATED AUTHOR 09/21/2023 [facility] DATE CREATED AUTHOR AUTHOR'S ORGANIZ ATION 01/22/2024 [facility] DATE CREATED AUTHOR AUTHOR'S ORGANIZ ATION 06/02/2024 [facility] DATE CREATED AUTHOR AUTHOR'S ORGANIZ ATION 06/22/2024 [facility] DATE CREATED AUTHOR AUTHOR'S ORGANIZ ATION 11/14/2024 [facility] DATE CREATED AUTHOR AUTHOR'S ORGANIZ ATION 03/16/2025 [facility] DATE CREATED AUTHOR AUTHOR'S ORGANIZ ATION 04/05/2025 [facility] FOR RECORDS PERTAINING TO PATIENTS WHO ARE OR HAVE BEEN ENROLLED IN A CHEMICAL DEPENDENCY/SUBSTANCEABUSE PROGRAM, SOME INFORMATION MAY BE OMITTED. This clinical summary was aggregated from multiple sources. Caution should be exercised in using it in the provision of clinical care. This summary normalizes information from multiple sources, and as a consequence, information in this document may materially change the coding, format and clinical context of patient data. In addition, data may be omitted in some cases. CLINICAL DECISIONS SHOULD BE BASED ON THE PRIMARY CLINICAL RECORDS. [facility]. provides no warranty or guarantee of the accuracy or completeness of information in this document.
== END | disposition home or self-care (01) ==
LOC: LABSPEC 07:07
PROVIDERS: PCP Family Medicine; Visit Provider Physician Assistant Surgical
DX: R82.90 Unspecified abnormal findings in urine (principal)
CPT/HCPCS: 87077; 87086; 87088

== ENCOUNTER 2025-05-02 07:04 | Emergency (ER) | payer OTHER, SELFPAY ==
[2025-05-02 07:04] VITALS: BP 113/83; PULSE 107; RESP 18; TEMP 36.6; O2SAT 99; BMI 20.7
--- NOTE | 2025-05-02 07:14 | RAD_ITS ---
PROCEDURE: CHEST 1 VIEW (PORTABLE) 05/02/2025 REASON FOR EXAM: PAIN Chest pain and back pain. Palpitations. TECHNIQUE: Frontal view of the chest. COMPARISON: November 01, 2024. FINDINGS: Hardware: None Heart: The heart size is normal. Lungs: The lungs are clear. Bones: The bones are unremarkable. RAD/Chest 1 View (Portable) IMPRESSION: No Acute Findings. Reading Location: [facility]
--- NOTE | 2025-05-02 07:16 | EX.ED.DYSGE1 ---
HPI History of Present Illness Chief Complaint: Chest Pain Narrative Narrative: 44-year-old female presents with multiple somatic complaints that she has been experiencing since 5:00 this morning, approximately 2 hours ago. She does relate history that she began developing tremors yesterday evening. She states the only time that she had tremors previously was when she was on lithium, but she does not take that any longer. She awoke this morning with multiple complaints ranging from continued tremors to heart palpitations. She states her heart rate was elevated and she can feel heart palpitations. She slightly nauseated but has not vomited. She denies any recent fevers or chills, no cough, no diarrhea. She states she does not eat as much for her to cause any diarrhea. She is on a GLP-1 and other medications including supplements and psychiatric medications. She states that she feels slightly anxious, and tried to calm herself down, but she is still experiencing these multiple tremors. She mentioned that she had chest pain as well as upper back pain mainly on the left side. She has paresthesia of her left arm as well. No other exacerbating or alleviating factors. [facility] Medical History Leg cramps PONV (postoperative nausea and vomiting) CRVO (central retinal vein occlusion) Right ureteral calculus Anxiety Bipolar 2 disorder Thyroid disease (~10/12/24) Diabetes Anemia Fatty liver Migraine headache Chronic diarrhea Non-smoker Decreased circulation Insomnia Bipolar 1 disorder Diarrhea Alcoholic hepatitis Breast lump Alcohol abuse Hypertension Home Medications ?Medication ?Instructions ?Recorded ?Last Taken ?Type potassium chloride 20 mEq 20 meq PO BID supplement 12/13/21 03/24/23 History tablet,extended release levothyroxine 25 mcg tablet 50 mcg PO DAILY thyroid 07/06/22 03/24/23 History colestipol 1 gram tablet 2 g (2 x 1 gram) PO BID . #60 tabs 12/22/22 03/24/23 Rx ondansetron 4 mg disintegrating 4 mg PO Q8H PRN PRN Nausea #10 tabs 05/14/23 Unknown Rx tablet lifxxcya-ewsnkjei-wjcw 45 mg-folic cap PO 07/11/24 Unknown History acid 800 mcg-vit K 120 mcg capsule (Bariatric Multivitamins) amlodipine 2.5 mg tablet 1.25 - 2.5 mg PO QPM 01/23/25 Unknown History divalproex 500 mg tablet,delayed See Rx Instructions PO .COMPLEX 30 01/24/25 Unknown Rx release (Depakote) days #120 tabs lamotrigine 150 mg tablet 150 mg PO QDAY 30 days #30 tabs 02/18/25 Unknown Rx sertraline 100 mg tablet 200 mg (2 x 100 mg) PO QHS #60 02/18/25 Unknown Rx TABLETS clonazepam 1 mg tablet 1 mg PO BID PRN anxiety #60 tabs 03/07/25 Unknown Rx lurasidone 120 mg tablet See Rx Instructions .Route 04/01/25 Unknown Rx .COMPLEX #30 tabs trazodone 50 mg tablet 50 - 100 mg (1 - 2 x 50 mg) PO QHS 04/05/25 Unknown Rx PRN sleep #30 tabs gabapentin 300 mg capsule 300 mg PO BID 30 days #60 caps 04/19/25 Unknown Rx phenazopyridine 200 mg tablet 200 mg PO TID PRN pain 6 doses #7 04/25/25 Unknown Rx (Pyridium) tabs Allergy/AdvReac Type Severity Reaction Status Date / Time No Known Allergies Allergy Verified 05/02/25 07:05 Family History Father Heart disease Mother Cancer lung- smoker Surgical History H/O breast implant H/O gastric sleeve Hx of cystoscopy Hx laparoscopic cholecystectomy Hx of colonoscopy Hx of tonsillectomy delivery delivered Social History household members: spouse housing: house current occupational status: employed current occupation: [employer] Smoking Status: Never smoker alcohol intake: former details: social substance use type: does not use caffeine: Yes what type of physical activity do you participate in: none seatbelt use: always do you feel safe at home: Yes additional social history: - Jed VARGAS ROS ED ROS Narrative Review of symptoms positive for multiple somatic complaints. Positive nausea but no vomiting. No fevers or chills. Positive palpitations and elevated heart rate. Positive tremors. No diarrhea, no exacerbating or relieving factors. Positive left arm pain. Mild anxiety and he has no. Positive for lightheadedness/dizziness. EXAM Physical Exam Narrative Exam Narrative: Afebrile. Vital signs noted. Nontoxic-appearing. Cardiovascular examination reveals mild tachycardia. Lungs are clear to auscultation bilaterally. Abdomen is soft and nontender with positive bowel sounds, no guarding or rebound. Neurological examination nonfocal, nonlateralizing. No pedal edema. Ambulatory and able to transfer to and from cot without difficulty/or ambulate. Const Vital Signs: 05/02/25 07:04 05/02/25 07:59 05/02/25 10:00 Temperature 97.9 F Temperature Source Temporal Pulse Rate 107 H 86 Pulse Rate [Lying] 95 Pulse Rate [Sitting (for 1 minute prior to obtaining)] 100 Pulse Rate [Standing (for 1 minute prior to obtaining)] 111 H Respiratory Rate 18 18 Blood Pressure 113/83 H 127/85 H Blood Pressure [Lying] 125/52 H Blood Pressure [Sitting (for 1 minute prior to obtaining)] 115/88 H Blood Pressure [Standing (for 1 minute prior to obtaining)] 99/81 H Blood Pressure Mean 93 99 Blood Pressure Mean [Lying] 76 Blood Pressure Mean [Sitting (for 1 minute prior to obtaining)] 97 Blood Pressure Mean [Standing (for 1 minute prior to obtaining)] 87 Pulse Ox 99 100 Oxygen Delivery Method Room Air Room Air MDM MDM MDM Narrative Medical decision making narrative: The differential diagnosis includes but not limited to dehydration versus intravascular volume depletion versus other electrolyte abnormality versus anxiety/panic. She could have ACS as well. Blood pressure is appropriate so I doubt aortic dissection. She has no risk factors for DVT or PE. Comprehensive workup was pursued. EKG obtained and interpreted by myself independently as normal sinus rhythm at 96 bpm without ectopy or acute ST changes. No STEMI. I reviewed her laboratory work and she has neutropenia of 2.8 but when compared to prior labs this has been intermittent. I think this is more nonspecific. Hemoglobin 12.5 with hematocrit 35.6, platelet count low at 102. When compared to prior labs, she has been thrombocytopenic the last 3 times her labs were drawn. CMP is significant for BUN of 24 and creatinine 1.54 consistent with mild dehydration. She has had acute kidney injuries in the past and her creatinine seems to fluctuate. Serum test is negative. Orthostatics are negative. She was bolused 1 L of IV fluids however. Urinalysis shows no evidence of infection with 0-5 WBCs. While I do not feel antibiotics are indicated, she did have 50 ketones. Chest x-ray interpreted by myself independently shows no evidence of acute process, no pneumonia or pneumothorax. I reviewed the radiology report which confirms my independent interpretation. Her initial high-sensitivity troponin is negative at 9. As long as her repeat troponin shows a negative delta troponin, I do feel that she most likely had mild dehydration versus intravascular volume depletion. Repeat examination shows her resting comfortably on the cot with mild improvement. Her repeat troponin is also 9 for negative delta troponin. At this point in time, I do not feel that she requires observation or admission. I feel she can be discharged to follow-up with her primary care provider. Return instructions to the emergency department were reviewed. Disposition is discharged home in stable condition. History & Record Review Discussion w/independent historian: Patient Additional record(s) reviewed:: Prior ED visit (Seen by myself most recently for flank pain) and Prior labs Lab Data Attestation: I reviewed the patient's lab results. Labs: Laboratory Results - last 24 hr 05/02/25 05/02/25 05/02/25 07:55 08:00 10:04 WBC 2.8 L RBC 4.00 L Hgb 12.5 Hct 35.6 L MCV 89.0 MCH 31.3 MCHC 35.1 RDW Std Deviation 41.8 RDW Coeff of Chet 12.8 Plt Count 102 L MPV 9.1 Immature Gran % (Auto) 0.000 Neut % (Auto) 43.9 L Lymph % (Auto) 47.1 H Gregory % (Auto) 7.2 Eos % (Auto) 1.4 Baso % (Auto) 0.4 Absolute Neuts (auto) 1.2 L Absolute Lymphs (auto) 1.30 Nucleated RBC % 0 Sodium 136 Potassium 4.7 Chloride 100 Carbon Dioxide 21.5 Anion Gap 15 BUN 24 H Creatinine 1.54 H Estim Creat Clear Calc 47.03 L Est GFR (MDRD) Non-Af 42 L BUN/Creatinine Ratio 15.8 Glucose 94 Calcium 10.2 Total Bilirubin 0.42 AST 28 ALT 23 Alkaline Phosphatase 46 Troponin T High Sens 9 Troponin T Hi Sens 2 Hr 9 Total Protein 6.7 Albumin 4.5 Globulin 2.2 Albumin/Globulin Ratio 2.1 Serum , Qual NEGATIVE Urine Color Yellow Urine Clarity Clear Urine pH 6.5 Ur Specific [place] 1.010 Urine Protein 30 H Urine Glucose (UA) Normal Urine Ketones 50 H Urine Occult Blood 10 H Urine Nitrite Negative Urine Bilirubin Negative Urine Urobilinogen Normal Ur Leukocyte Esterase 100 H Urine RBC 0 SEEN Urine WBC 0-5 SEEN Ur Squamous Epith Cells 0-5 SEEN Urine Bacteria 0 SEEN Urine Mucus 0 SEEN Radiography Chest X-Ray - ED: 1 View, Read by ED Physician, Read by Radiologist and No Acute Disease Diagnostic Testing: Clinical Impression(s) from Imaging Studies Chest X-Ray 05/02/25 07:14 IMPRESSION: No Acute Findings. Reading Location: [facility] Discharge Plan Triage Chief Complaint: Chest Pain Other Complaint: Palpitations ED Provider: Tin Hairston Dx/Rx/DC Orders Clinical Impression: Occasional tremors, Lightheadedness, Palpitations, Chest pain Instructions: ED Chest Pain, Uncertain Cause, ED Heart Palpitations, ED Near-Fainting, Uncertain Cause Prescriptions: No Action Bariatric Multivitamins 45 mg iron- 800 mcg-120 mcg capsule PO amlodipine 2.5 mg tablet 1.25 - 2.5 mg PO QPM phenazopyridine [Pyridium] 200 mg tablet 200 mg PO TID PRN (Reason: pain) Qty: 7 0RF potassium chloride 20 mEq tablet extended release 20 meq PO BID Patient Comments: Unsure of dose, 2 very large pills levothyroxine 25 mcg tablet 50 mcg PO DAILY ondansetron 4 mg tablet,disintegrating 4 mg PO Q8H PRN PRN (Reason: Nausea) Qty: 10 0RF colestipol 1 gram tablet 2 g PO BID Qty: 60 11RF divalproex [Depakote] 500 mg tablet,delayed release (DR/EC) See Rx Instructions PO .COMPLEX 30 Days Qty: 120 1RF Rx Instructions: 500 mg orally qAM and 1500 mg orally qHS sertraline 100 mg tablet 200 mg PO QHS Qty: 60 2RF lamotrigine 150 mg tablet 150 mg PO QDAY 30 Days Qty: 30 2RF clonazepam 1 mg tablet 1 mg PO BID PRN (Reason: anxiety) Qty: 60 1RF lurasidone 120 mg tablet See Rx Instructions .ROUTE .COMPLEX Qty: 30 2RF Dose Instruction: TAKE 1 TABLET BY MOUTH EVERY NIGHT AT BEDTIME, MUST ADMINISTER WITH FOOD (at least 350 calories) Rx Instructions: TAKE 1 TABLET BY MOUTH EVERY NIGHT AT BEDTIME, MUST ADMINISTER WITH FOOD (at least 350 calories) trazodone 50 mg tablet 50 - 100 mg PO QHS PRN (Reason: sleep) Qty: 30 1RF gabapentin 300 mg capsule 300 mg PO BID 30 Days Qty: 60 1RF Primary Care Provider: Hieu Gonzalez Referrals: Hieu Gonzalez MD [Primary Care Provider, Family Practice] - 3-5 Days if not improving Activity Restrictions/Additional Instructions: Follow-up with your primary care provider. Return with new or worsening symptoms. Drink plenty of oral fluids. Print Language: Macedonian Disposition Disposition: Home, Self Care
[2025-05-02 07:59] VITALS: BP 115/88; BP 125/52; BP 99/81; PULSE 100; PULSE 111; PULSE 95
[2025-05-02] MEDS: 0.9% Normal Saline (1000mL) 1,000 ML 1000 ML IV (08:09)
[2025-05-02 08:10] LABS: Mucous, Urine 0 SEEN /hpf (<or=2+); Red Blood Cells-Urine 0 SEEN /hpf (0-5)
[2025-05-02 08:11] LABS: Color, Urine Yellow (Yellow); Glucose, Dipstick Normal (Normal); Ketone-Dipstick 50 mg/dl (Negative); Leukocyte Esterase-Dipstick 100 /ul (Negative); Nitrite-Dipstick Negative (Negative); Occult Blood-Urine 10 /ul (Negative); Protein-Dipstick 30 mg/dl (Negative); Specific Gravity, Urine 1.010 (1.002-1.030); Urine Bilirubin Dipstick Negative (Negative)
[2025-05-02 08:13] LABS: Hematocrit 35.6 % (37-47); Hemoglobin 12.5 g/dL (12.0-15.0); Immature Granulocytes Count 0.000 X10^3/uL (0.0-0.0); Mean Corp Hgb Conc 35.1 g/dL (32-36); Mean Corpuscular Volume 89.0 fL (81-99); Mean Platelet Vol. 9.1 fl (6.2-12.0); NRBC Flagged by Analyzer 0 % (0-5); Platelet Count 102 K/mm3 (150-450); RBC Distribution Width CV 12.8 % (11.6-14.6); RBC Distribution Width SD 41.8 fl (35.1-43.9); Red Blood Count 4.00 M/mm3 (4.2-5.4); White Blood Count 2.8 K/mm3 (4.4-11.0)
[2025-05-02 08:20] LABS: Internal QC Validated? YES +Cl - CLEAR BKGD; Pregnancy, Serum, hCG Quali. NEGATIVE Negative; Record Kit Lot#, Serum Preg. 980607
[2025-05-02 08:23] LABS: Squamous Epithelial Cells - UA 0-5 SEEN /hpf (5-10)
[2025-05-02 08:48] LABS: AST(SGOT) 28 U/L (<=31); Alanine Aminotransfer ALT/SGPT 23 U/L (<=34); Albumin, Serum 4.5 g/dL (3.5-5.0); Alkaline Phosphatase 46 U/L (35-104); Anion Gap 15 (5-15); BUN 24 mg/dL (4-19); BUN/Creat Ratio 15.8 RATIO (10-20); Calcium,Total 10.2 mg/dL (7.6-11.0); Carbon Dioxide 21.5 mmol/L (21.0-32.0); Chloride 100 mmol/L (98-108); Estimated Creatinine Clearance 47.03 ml/min (50-250); Globulin 2.2 g/dL (2.2-4.2); Glucose 94 mg/dL (70-99); Potassium 4.7 mmol/L (3.3-5.1); Troponin T High Sensitivity 9 ng/L (<=14)
[2025-05-02 10:00] VITALS: BP 127/85; PULSE 86; RESP 18; O2SAT 100
[2025-05-02 10:34] LABS: Troponin T High Sens 2 HR 9 ng/L (<=14)
[2025-05-02 10:51] VITALS: BP 126/71; PULSE 86; RESP 18; TEMP 37; O2SAT 97
== END 2025-05-02 10:54 | disposition home or self-care (01) ==
PROVIDERS: Emergency Provider Emergency Medicine; PCP Family Medicine; Visit Provider Emergency Medicine
DX: R25.1 Tremor, unspecified (principal); E11.9 Type 2 diabetes mellitus without complications; R07.9 Chest pain, unspecified; M54.9 Dorsalgia, unspecified; R42 Dizziness and giddiness; R00.2 Palpitations; D70.9 Neutropenia, unspecified; R20.2 Paresthesia of skin; I10 Essential (primary) hypertension
CPT/HCPCS: 71045; 80053; 81001; 84484; 84703; 85025; 93005; 96360; 99284; A4216

== ENCOUNTER → 2025-05-03 | Outpatient (CLI) | payer OTHER, SELFPAY ==
[2025-05-03 13:07] LABS: Ionized Calcium Order ORDER TUBE
[2025-05-03 15:44] LABS: Ammonia 10.0 umol/L (11-51)
[2025-05-03 15:49] LABS: Valproic Acid (Depakene) Level 33 ug/mL (50-100)
[2025-05-03 15:57] LABS: AST(SGOT) 31 U/L (<=31); Alanine Aminotransfer ALT/SGPT 27 U/L (<=34); Albumin, Serum 4.8 g/dL (3.5-5.0); Alkaline Phosphatase 48 U/L (35-104); Anion Gap 16 (5-15); BUN 21 mg/dL (4-19); BUN/Creat Ratio 15.9 RATIO (10-20); Calcium,Total 9.9 mg/dL (7.6-11.0); Carbon Dioxide 22.0 mmol/L (21.0-32.0); Chloride 99 mmol/L (98-108); Globulin 2.4 g/dL (2.2-4.2); Glucose 61 mg/dL (70-99); Potassium 4.4 mmol/L (3.3-5.1)
[2025-05-03 16:03] LABS: CRP < 3.00 mg/L (0.0-3.0); Magnesium 2.0 mg/dL (1.5-2.2)
== END | disposition home or self-care (01) ==
LOC: MFPLAB 12:06
PROVIDERS: Student in an Organized Health Care Education/Training Program; PCP Family Medicine; Visit Provider Family Medicine
DX: R25.1 Tremor, unspecified (principal)
CPT/HCPCS: 36415; 80053; 80164; 82140; 82330; 83735; 84439; 84443; 86140